=== PATIENT | female | born 1990 | race Caucasian/White ===

== ENCOUNTER 2023-06-17 12:40 | Outpatient (OUT) | payer OTHER, SELFPAY | END 2023-06-17 12:41 | disposition home or self-care (01) | LOC: LAB 12:43 | PROVIDERS: PCP Internal Medicine; Visit Provider Internal Medicine | DX: R53.83 Other fatigue (principal) | CPT/HCPCS: 36415; 82607 ==

== ENCOUNTER 2023-06-23 16:15 | Outpatient (OUT) | payer OTHER, SELFPAY ==
[2023-06-23 16:50] LABS: Basophils Percent Auto 0.6 % (0.2-2.0); Eosinophils Absolute Auto 0.3 10^3/uL (0.0-0.7); Eosinophils Percent Auto 4.4 % (0.9-7.0); Hematocrit 41.5 % (36.0-48.0); Hemoglobin 13.8 g/dL (12.0-16.0); Immature Granulocytes Abs Auto 0.02 10^3/uL (0.00-0.03); Immature Granulocytes Pct Auto 0.3 % (0.0-0.5); Lymphocytes Percent Auto 29.8 % (20.5-60.0); Mean Corpuscular HGB Conc 33.3 g/dL (29.9-35.2); Mean Corpuscular Hemoglobin 30.7 pg (26.7-34.0); Mean Corpuscular Volume 92.2 fL (81.0-99.0); Mean Platelet Volume 9.7 fL (9.5-13.5); Monocytes Absolute Auto 0.5 10^3/uL (0.3-0.8); Neutrophils Absolute Auto 3.9 10^3/uL (1.4-6.5); Neutrophils Percent Auto 57.9 % (43.0-75.0); Platelet Count 167 10^3/uL (150-450); Red Cell Distribution Width 12.6 % (11.0-15.0); White Blood Count 6.8 10^3/uL (4.0-11.0)
[2023-06-23 17:09] LABS: Alanine Aminotransferase 29 U/L (14-59); Albumin Globulin Ratio 1.1; Alkaline Phosphatase 53 U/L (46-116); Anion Gap 13.7; Aspartate Amino Transferase 17 U/L (15-37); BUN Creatinine Ratio 12.5; Bilirubin Total 0.5 mg/dL (0.2-1.0); Calcium 9.3 mg/dL (8.5-10.1); Carbon Dioxide 24.7 mmol/L (21.0-32.0); Chloride 106 mmol/L (98-107); Estimated GFR (African America >60 (>=60); Estimated GFR (Non-African Ame >60 (>=60); Globulin 3.6 g/dL; Glucose 91 mg/dL (74-106); Potassium 4.4 mmol/L (3.5-5.1); Sodium 140 mmol/L (136-145); Thyroid Stimulating Hormone 0.097 uIU/mL (0.358-3.740); Total Protein 7.6 g/dL (6.4-8.2)
== END 2023-06-23 16:16 | disposition home or self-care (01) ==
PROVIDERS: PCP Internal Medicine; Visit Provider Internal Medicine
DX: K70.30 Alcoholic cirrhosis of liver without ascites (principal); R53.83 Other fatigue
CPT/HCPCS: 36415; 80053; 84443; 85025

== ENCOUNTER 2023-07-08 16:38 | Outpatient (OUT) | payer OTHER, SELFPAY ==
[2023-07-08 17:24] LABS: Free T4 0.71 ng/dL (0.76-1.46)
[2023-07-08 17:29] LABS: Free T3 2.08 pg/mL (2.18-3.98); Thyroid Stimulating Hormone 2.039 uIU/mL (0.358-3.740)
== END 2023-07-08 16:39 | disposition home or self-care (01) ==
LOC: LAB 16:38
PROVIDERS: PCP Internal Medicine; Visit Provider Internal Medicine
DX: R79.89 Other specified abnormal findings of blood chemistry (principal)
CPT/HCPCS: 36415; 84436; 84439; 84443; 84481

== ENCOUNTER 2023-07-26 08:01 | Outpatient (OUT) | payer OTHER, SELFPAY ==
--- NOTE | 2023-07-26 09:04 | US_ITS ---
The [address] [address] Patient Name: ROCIO RDZ MRN: [facility]:[id number] date: 1990 Sex: F Assigned Patient Location: US Current Patient Location: US Accession/Order Number: [id number] Exam Date: 07/26/2023 09:12 Report Date: 07/26/2023 10:58 At the request of: NON-STAFF PHYSICIAN Procedure: US right upper quadrant EXAM: US right upper quadrant EXAM DATE: 07/26/2023 7:12 AM MDT COMPARISON: Right upper quadrant ultrasound 03/23/2022 and 11/21/2021.. INDICATION: ALCOHOLIC CIRRHOSIS OF LIVER WITH ASCITES K70.31 TECHNIQUE: Limited ultrasound of the right upper quadrant of abdomen was performed. Images were reviewed on a separate workstation. FINDINGS: Hepatic parenchyma contour is coarsened with diffuse contour nodularity. No focal intraparenchymal abnormality detected. Gallbladder is normally distended. No intraluminal echogenic abnormality seen. No gallbladder wall thickening or pericholecystic fluid noted. Gallbladder wall measures 1.5 mm. Sonographic Carreon's sign is absent. No intrahepatic or extrahepatic biliary ductal dilatation noted. CBD measures 6.2 mm. Numerous perihepatic varices are redemonstrated, compatible with portal hypertension. Hepatopedal flow is demonstrated within the portal vein on images 36 and 37. Pancreas is partially obscured by bowel gas; visualized pancreatic parenchyma is within normal limits. Right kidney measures 10.5 x 5.5 x 4.5. No hydronephrosis or nephrolithiasis noted. No free fluid noted in the right upper abdomen. US/US right upper quadrant IMPRESSION: 1. Cirrhosis with adjacent varices, compatible with underlying portal hypertension. 2. No focal hepatic lesion or ascites identified. Electronically authenticated by: GENTRY PONCE Date: 07/26/2023 10:58
== END 2023-07-26 08:02 | disposition home or self-care (01) ==
LOC: US 08:02
PROVIDERS: PCP Internal Medicine
DX: K70.31 Alcoholic cirrhosis of liver with ascites (principal)
CPT/HCPCS: 76705

== ENCOUNTER 2023-11-12 16:45 | Outpatient (OUT) | payer OTHER, SELFPAY ==
[2023-11-12 17:04] LABS: Basophils Percent Auto 0.4 % (0.2-2.0); Eosinophils Absolute Auto 0.2 10^3/uL (0.0-0.7); Eosinophils Percent Auto 3.2 % (0.9-7.0); Hematocrit 41.9 % (36.0-48.0); Hemoglobin 13.3 g/dL (12.0-16.0); Immature Granulocytes Abs Auto 0.01 10^3/uL (0.00-0.03); Immature Granulocytes Pct Auto 0.1 % (0.0-0.5); Lymphocytes Absolute Auto 2.6 10^3/uL (1.2-3.8); Lymphocytes Percent Auto 37.7 % (20.5-60.0); Mean Corpuscular HGB Conc 31.7 g/dL (29.9-35.2); Mean Corpuscular Hemoglobin 30.4 pg (26.7-34.0); Mean Corpuscular Volume 95.7 fL (81.0-99.0); Monocytes Absolute Auto 0.5 10^3/uL (0.3-0.8); Monocytes Percent Auto 7.7 % (1.7-12.0); Neutrophils Absolute Auto 3.6 10^3/uL (1.4-6.5); Neutrophils Percent Auto 50.9 % (43.0-75.0); Platelet Count 189 10^3/uL (150-450); Red Blood Count 4.38 10^6/uL (4.20-5.40); Red Cell Distribution Width 12.3 % (11.0-15.0)
[2023-11-12 17:52] LABS: Alanine Aminotransferase 30 U/L (14-59); Albumin Level 3.7 g/dL (3.4-5.0); Alkaline Phosphatase 48 U/L (46-116); Anion Gap 12.3; Aspartate Amino Transferase 24 U/L (15-37); BUN Creatinine Ratio 15.8; Bilirubin Total 0.6 mg/dL (0.2-1.0); Calcium 9.3 mg/dL (8.5-10.1); Carbon Dioxide 28.8 mmol/L (21.0-32.0); Chloride 104 mmol/L (98-107); Estimated GFR (African America >60 (>=60); Estimated GFR (Non-African Ame >60 (>=60); Globulin 3.6 g/dL; Glucose 82 mg/dL (74-106); Potassium 4.1 mmol/L (3.5-5.1); Sodium 141 mmol/L (136-145); Total Protein 7.3 g/dL (6.4-8.2)
== END 2023-11-12 16:46 | disposition home or self-care (01) ==
LOC: LAB 16:45
PROVIDERS: PCP Internal Medicine; Visit Provider Internal Medicine
DX: K70.30 Alcoholic cirrhosis of liver without ascites (principal)
CPT/HCPCS: 36415; 80053; 85025

== ENCOUNTER 2024-01-03 08:08 | Outpatient (OUT) | payer OTHER, SELFPAY ==
--- OUTSIDE RECORDS SUMMARY | 2024-01-03 08:10 | XMS_ITS | CCD ---
Author Name Unknown Address [address] [place] [address] Organization [facility] Care Team Providers Care Accounts Adjustable Clerk Name Role Phone Rodney Castañeda Unavailable Charlene Owens Unavailable Sydnee Kong Unavailable FAWWAD, CARNEY H Primary Care Unavailable ASAAD, IMAD Admitting Unavailable ASAAD, IMAD Attending Unavailable ASAAD, IMAD Consulting Unavailable WEST, DR RODNEY Recio Consulting Unavailable REQUEST, DR NONE LISTED Primary Care Unavaila ble FAWWAD, CARNEY H Admitting Unavailable FAWWAD, CARNEY H Attending Unavailable FAWWAD, CARNEY H Consulting Unavailable YASMIN ., DR RAMIREZ Attending Unavailable YASMIN ., DR RAMIREZ Consulting Unavailable YASMIN ., DR RAMIREZ Admitting Unavailable REQUEST, NONE LISTED Primary Care UnavailRODNEY Quevedo Consulting Unavailable YASMIN ., DR RAMIREZ Consulting Unavailable YASMIN ., DR RAMIREZ Admitting Unavailable YASMIN ., DR RAMIREZ Attending Unavailable REQUEST, NONE LISTED Primary Care Unavaila ble FAWWAD, CARNEY H Primary Care Unavailable YASMIN ., DR RAMIREZ Consulting Unavailable YASMIN ., DR RAMIREZ Admitting Unavailable YASMIN ., DR RAMIREZ Attending Unavailable ZIEBER, DR KYLE Carver Consulting Unavailable FAWWAD, CARNEY H Primary Care Unavailable FAWWAD, CARNEY H Admitting Unavailable FAWWAD, CARNEY H Attending Unavailable FAWWAD, CARNEY H Consulting Unavailable FAWWAD, CARNEY H Primary Care Unavailable FAWWAD, CARNEY H Admitting Unavailable FAWWAD, CRANEY H Attending Unavailable FAWWAD, CARNEY H Consulting Unavailable Ann Perera Unavailable Vicky Cedillo Unavailable MD Kojo Deshpande Primary Care Provider MIKIE Perera Attending Provider MD Vicky Cedillo Attending Provider Asaad, Imad Admitting Unavailable Shaikh Deshpande Primary Care Unavailable Vicky Cedillo Attending Unavailable Shaikh Deshpande Primary Care Unavailable Ann Perera Attending Unavailable Ann Perera Admitting Unavailable RAZA RAUSCH Attending Unavailable Allergies Allergy Classification Reported Allergen(s) Allergy Type Date of Onset Reaction(s) Facility (14 sources) Penicillin G Drug Allergy vomits [facility] Other (1 source) Ciprofloxacin Drug Allergy 11-17-19 19 [facility] (1 source) Penicillin Drug Allergy 03-27-20 17 [facility] (2 sources) Penicillins; Translations: [Penicillins] Propensity to adverse reactions 08-08-20 23 Vomiting [facility] (2 sources) Sulfamethoxazole; Translations: [sulfamethoxazole ] Drug Allergy 08-08-20 Joint Pain [facility] (2 sources) Trimethoprim; Translations: [trimethoprim] Drug Allergy 08-08-20 [facility] Medications Current Medications Medication Drug Class(es) Dates Sig (Normalized) Sig (Original) Ascorbic Kvzd-Xqhrmesp-Htd (Emergen-C) 1,000 mg Powder Effervescent In Packet (1 source) Start: 06-09-2021 Ascorbic Ccwk-Kpjnwypb-Qzb (Emergen-C) 1,000 mg Powder Effervescent In Packet Active 1 EACH PO Daily June 09, 2021 12:00am cefdinir 300 mg oral capsule (1 source) Cephalosporin Antibacterial Start: 10-24-2022 Cefdinir 300 MG as directed Orally BID for 10 days Oct, Active cetirizine hydrochloride 10 mg oral tablet (1 source) Histamine-1 Receptor Antagonist Start: 10-24-2022 take 1 tablet by mouth every twelve hours Cetirizine HCl 10 MG 1 tablet Orally Twice a day for 14 days Oct, Active dicyclomine hydrochloride 20 mg oral tablet (5 sources) Anticholinergic Start: 04-23-2022 take 1 tablet by mouth every six hours Dicyclomine HCl 20 MG 1 tablet Orally FOUR TIMES A DAY for 30 day(s) Apr, Active Start: 06-26-2021 take 1 tablet by dawit th every six hours Dicyclomine HCl 20 MG 1 tablet Orally qid for 30 day(s) Jun, Not-Taking fluticasone propionate 0.05 mg/actuat metered dose nasal spray (1 source) Corticosteroid Start: 10-24-2022 take 1 spray(s) nasal route once daily Flonase Allergy Relief 50 MCG/ACT 1 spray in each nostril Nasally Once a day for 14 day(s) Oct, Active folic acid 1 mg oral tablet (15 sources) Start: 07-11-2021 Folic Acid Active 1 MG PO As Directed July 11, 2021 12:00am Folic Acid Activ e hyoscyamine sulfate 0.125 mg sublingual tablet (4 sources) Start: 04-16-2022 take 1 tablet under the tongue twice daily as needed Hyoscyamine Sulfate SL 0.125 MG 1 tablet under the tongue and allow to dissolve as needed Sublingual TWICE A DAY for 30 days March, Active Probiotic (3 sources) Probiotic Active thiamine 100 mg oral tablet (1 source) Start: 08-08-2023 take 1 tablet by mouth once daily Thiamine Mononitrate (Vit B1) (Vitamin B-1 (Mononitrate)) 100 mg tablet Active 100 MG PO Daily August 08, 2023 12:00am Vitamin B1 (14 sources) Vitamin B1 Activ e zolpidem tartrate 5 mg oral tablet (7 sources) gamma-Aminobuty trupti Acid-ergic Agonist Start: 08-08-2023 take 5 mg by mouth once daily Zolpidem Active 5 MG PO Daily August 08, 2023 12:00am Ambien PRN Activ e Ambien Active Completed/Discontinued Medications Medication Drug Class(es) Dates Sig (Normalized) Sig (Original) ALPRAZolam 0.25 mg oral tablet (9 sources) Benzodiazepine Start: 07-11-2021 End: 08-08-2023 Alprazolam Discontinued 0.25 MG PO As Directed July 11, 2021 12:00am August 08, 2023 8:40am ALPRAZolam PRN A ctive ALPRAZolam Activ e Cranberry Conc-Ascorbic Acid (1 source) Non-Standardized Food Allergenic Extract, Non-Standardized Plant Allergenic Extract, Vitamin C Start: 06-09-2021 End: 07-11-2021 take 2 capsules by mouth once daily Cranberry Conc-Ascorbic Acid Discontinued 2 CAP PO Daily June 09, 2021 12:00am July 11, 2021 11:07am 24 hr buPROPion hydrochloride 150 mg extended release oral tablet (1 source) Aminoketone Start: 08-08-2023 End: 08-08-2023 take 150 mg by mouth once daily Bupropion Hcl Discontinued 150 MG PO Daily August 08, 2023 12:00am August 08, 2023 8:41am cefTRIAXone (10 sources) Cephalosporin Antibacterial Start: 01-19-2020 Rocephin 500 mg Jan, 500 mg furosemide 20 mg oral tablet (20 sources) Loop Diuretic Start: 11-21-2021 take 1 tablet by mouth every twenty-four hours Furosemide 20 MG 1 tablet Orally Once a day for 30 days Nov, Not-Taking Start: 07-11-2021 Furosemide Act ping 40 MG PO As Directed July 11, 2021 12:00am Furosemide Activ e levoFLOXacin 750 mg oral tablet (1 source) Quinolone Antimicrobial Start: 06-11-2021 End: 07-11-2021 take 750 mg by mouth once daily Levofloxacin Discontinued 750 MG PO Daily 5 5 June 11, 2021 12:00am July 11, 2021 11:08am loperamide hydrochloride 2 mg oral capsule (1 source) Opioid Agonist Start: 06-11-2021 End: 06-11-2021 take 1 capsule by mouth once daily in the morning Loperamide (Anti-Diarrheal (Loperamide)) 2 mg Capsule Discontinued 1 PO Every morning June 11, 2021 12:00am June 11, 2021 3:47pm meloxicam (7 sources) Nonsteroidal Anti-inflammatory Drug Meloxicam Not-Taking Meloxicam Active methylPREDNISolone 4 mg oral tablet (2 sources) Corticosteroid Medrol 4 MG as directed Orally as directed for 6 days Not-Taking 24 hr nicotine 0.875 mg/hr transdermal system (1 source) Cholinergic Nicotinic Agonist Start: 2020 End: 2020 apply 1 dose transdermal route every twenty-four hours Nicotine Discontinued 1 PATCH TRANSDERML Q24H June 11, 2021 12:00am July 11, 2021 11:08am oxyCODONE hydrochloride 5 mg oral tablet (12 sources) Opioid Agonist Start: 2020 End: 2022 Oxycodone (Roxicodone) 5 mg tablet Discontinued 2.5 MG PO Daily 7 5 June 11, 2021 August 08, 2023 8:40am oxyCODONE ER PRN Active oxyCODONE ER Act ping predniSONE 20 mg oral tablet (3 sources) Start: 06-11-2021 End: 08-08-2023 take 20 mg by mouth once daily Prednisone Discontinued 20 MG PO Daily 7 June 11, 2021 12:00am August 08, 2023 8:40am predniSONE Not-T aking Psyllium Husk (Metamucil) 0.4 gram Capsule (1 source) Start: 06-11-2021 End: 06-11-2021 Psyllium Husk (Metamucil) 0.4 gram Capsule Discontinued 0.4 GM PO Bedtime June 11, 2021 12:00am June 11, 2021 3:47pm rifAXIMin 550 mg oral tablet (7 sources) Rifamycin Antibacterial Start: 11-21-2021 take 1 tablet by mouth every twelve hours Xifaxan 550 MG 1 tablet Orally Twice a day for 30 day(s) Nov, Not-Taking spironolactone 25 mg oral tablet (20 sources) Aldosterone Antagonist Start: 07-11-2021 take 1 tablet by mouth every twenty-four hours Spironolactone 25 MG 1 tablet Orally Once a day for 30 days Nov, Not-Taking take 1 tablet by dawit th every twenty-four hours Spironolactone 50 MG 1 tablet Orally Onc e a day Active Spironolactone A ctive 24 hr venlafaxine 37.5 mg extended release oral capsule (9 sources) Serotonin and Norepinephrine Reuptake Inhibitor Start: 07-11-2021 End: 08-08-2023 take 37.5 mg by mouth once daily at bedtime Venlafaxine Discontinued 37.5 MG PO Daily at bedtime July 11, 2021 12:00am August 08, 2023 8:40am take 1 tablet by dawit th every twenty-four hours Venlafaxine HCl 37.5 MG 1 TABLET Orally Once a day Not-Taking take 2 tablets by mo uth every twenty-four hours Venlafaxine HCl 37.5 MG 2 tablets Orally Once a day Active Vitamin B Complex (1 source) Start: 06-09-2021 End: 08-08-2023 take 1 tablet by mouth once daily Vitamin B Complex Discontinued 1 TAB PO Daily June 09, 2021 12:00am August 08, 2023 8:39am Problems Active Problems Problem Classification Problem Date Documented Da te Episodic/Chronic Abdominal pain (20 sources) Abdominal pain; Translations: [Unspecified abdominal pain] Onset: 08-21-2021 Resolved: 05-08-2022 Episodic Alcohol-related disorders (20 sources) Alcoholic cirrhosis; Translations: [Alcoholic cirrhosis of liver with ascites] Onset: 08-21-2021 Resolved: 04-16-2022 Chronic Biliary tract disease (1 source) Cholecystitis; Translations: [Cholecystitis, unspecified] 06-09-2021 Episodic Menstrual disorders (8 sources) Irregular menstruation, unspecified; Translations: [Excessive and frequent menstruation with irregular cycle] Onset: 10-15-2022 Chronic Other connective tissue disease (1 source) Pain in right foot Episodic Other diseases of veins and lymphatics (1 source) Disorder of spleen; Translations: [Varicose veins of other specified sites] 06-08-2021 Episodic Other gastrointestinal disorders (4 sources) Ascites; Translations: [Other ascites] 06-08-2021 Episodic Other gastrointestinal disorders (1 source) Other ascites Episodic Other liver diseases (5 sources) Unspecified cirrhosis of liver; Translations: [UNSPECIFIED CIRRHOSIS OF LIVER] Onset: 04-15-2023 Chronic Other liver diseases (5 sources) Cirrhosis of liver; Translations: [Unspecified cirrhosis of liver] Onset: 05-17-2021 06-11-2021 Chronic Other screening for suspected conditions (not mental disorders or infectious disease) (10 sources) Ultrasound scan abnormal; Translations: [Abnormal findings on diagnostic imaging of other specified body structures] Onset: 04-16-2022 Resolved: 04-16-2022 Chronic Other screening for suspected conditions (not mental disorders or infectious disease) (7 sources) Encounter for screening for malignant neoplasm of cervix; Translations: [Blood chemistry abnormal] Onset: 11-21-2022 Episodic Other upper respiratory infections (10 sources) Acute upper respiratory infection, unspecified; Translations: [Sore throat symptom] Onset: 08-15-2021 Resolved: 08-15-2021 Episodic Otitis media and related conditions (1 source) Other acute nonsuppurative otitis media, bilateral Episodic Peritonitis and intestinal abscess (1 source) Primary bacterial peritonitis; Translations: [Spontaneous bacterial peritonitis] 06-09-2021 Episodic Unclassified (1 source) Pain in right foot; Translations: [Pain in right foot] Onset: 06-16-2023 Past or Other Problems Problem Classification Problem Date Documented Da te Episodic/Chronic Benign neoplasm of uterus (1 source) Leiomyoma of uterus, unspecified; Translations: [LEIOMYOMA OF UTERUS UNSPECIFIED] Onset: 11-28-2022 Episodic Immunizations and screening for infectious disease (3 sources) Contact with and (suspected) exposure to other viral communicable diseases; Translations: [Contact with and (suspected) exposure to unspecified communicable disease] Onset: 08-15-2021 Resolved: 08-15-2021 Episodic Ovarian cyst (6 sources) Other ovarian cyst, left side; Translations: [Unspecified ovarian cyst, left side] Onset: 11-28-2022 Episodic Results Test Name Value Interpretation Reference Range Facility HCG ( test) Terence reynolds Ql (U)Ordered By: Vicky Cedillo on 08-08-2023 HCG ( test) Ql (U) Negative [facility] HCG,Urineon 08-08-2023 Beta HCG ( test) Ql (U) Negative Normal [facility] Comment on above: Result Comment: PERF ORMED BY: [place] [address] PATHOLOGIST RIBBON LAPPER TENDER SAMANTHA SOTOMAYOR M.D. Performed By: #### U HCG #### [address] XR foot RT min 3V*on 023 XR foot RT min 3V* [facility] [place] [address] [place] [address] XRay Report Signed Patient: Radha Hines MR#: [id number] : 1990 Acct:[id number] Age/Sex: 32 / F ADM Date: 06/16/23 Loc: XDUCLY Room: Type: [facility] Attending Dr: Ann Perera APRN Copies to: Ann Perera APRN Ordering Provider: Ann Perera APRN Date of Service: 06/16/23 XR/XR foot RT min 3V*: Right foot pain XR foot RT min 3V* 06/16/2023 5:22 PM SIGNS AND SYMPTOMS: Pain in lateral aspect of the right foot/fifth metatarsal PROTOCOL: Frontal, lateral, and oblique radiographs of the right foot COMPARISON: 05/04/2021 FINDINGS: The bones are in anatomic alignment. There is no evidence of fracture or dislocation. The joint spaces are preserved. No significant soft tissue swelling. There is an os perineum along the lateral aspect of the midfoot. There is minimal plantar surface calcaneal spurring. XR/XR foot RT min 3V* IMPRESSION: No acute bony injury. Impression dictated by: Ishmael Nelson M.D.06/16/2023 5:39 PM Dictation Location: [facility]- Transcribed By: [facility] 06/16/23 173 Dictated By: Ishmael Nelson II, MD 06/16/231735 Signed By: 06/16/23 173 [facility] XR foot RT min 3V* [facility] [employer] Other XR foot RT min 3V* [facility] [employer] Other XR foot RT min 3V* [address] [place] [address] [email or web address] Other XR foot RT min 3V* [place] [address] [email or web address] Other XR foot RT min 3V* XRay Report [email or web address] Other XR foot RT min 3V* Signed [email or web address] Other XR foot RT min 3V* Patient: Radha Hines MR#: [id number] [email or web address] Other XR foot RT min 3V* 925 [email or web address] Other XR foot RT min 3V* : 1990 Acct:[id number] [email or web address] Other XR foot RT min 3V* Age/Sex: 32 / F ADM Date: 06/16/23 [email or web address] Other XR foot RT min 3V* Loc: XDUCLY Room: Type: REG CLI [email or web address] Other XR foot RT min 3V* Attending Dr: Ann Perera [facility] [email or web address] Other XR foot RT min 3V* Copies to: Ann Perera [facility] [email or web address] Other XR foot RT min 3V* Ordering Provider: Ann Perera [facility] [email or web address] Other XR foot RT min 3V* Date of Service: 06/16/23 [email or web address] Other XR foot RT min 3V* XR/XR foot RT min 3V*: Right foot pain [email or web address] Other XR foot RT min 3V* XR foot RT min 3V* 06/16/2023 5:22 PM [email or web address] Other XR foot RT min 3V* SIGNS AND SYMPTOMS: Pain in lateral aspect of the right foot/fifth metatarsal [email or web address] Other XR foot RT min 3V* PROTOCOL: Frontal, lateral, and oblique radiographs of the right foot [email or web address] Other XR foot RT min 3V* COMPARISON: 05/04/2021 [email or web address] Other XR foot RT min 3V* FINDINGS: [email or web address] Other XR foot RT min 3V* The bones are in anatomic alignment. There is no evidence of fracture or dislocation. The joint [email or web address] Other XR foot RT min 3V* spaces are preserved . No significant soft tissue swelling. There is an os perineum along the lateral [email or web address] Other XR foot RT min 3V* aspect of the midfoot. There is minimal plantar surface calcaneal spurring. [email or web address] Other XR foot RT min 3V* XR/XR foot RT min 3V* [email or web address] Other XR foot RT min 3V* IMPRESSION: [email or web address] Other XR foot RT min 3V* No acute bony injury. [email or web address] Other XR foot RT min 3V* Impression dictated by: Ishmael Nelson M.D.06/16/2023 5:39 PM [email or web address] Other XR foot RT min 3V* Dictation Location: [facility]--13 [email or web address] Other XR foot RT min 3V* Transcribed By: JOLENE 06/16/23 173 [email or web address] Other XR foot RT min 3V* Dictated By: Ishmael Nelson II, MD 06/16/23 173 [email or web address] Other XR foot RT min 3V* Signed By: [email or web address] Other XR foot RT min 3V* 06/16/23 1739 [facility] Other CBC AUTO DIFFon 04-15-2023 BASO # 0.1 103/ul Normal 0.0-0.1 [facility] Comment on above: Performed By: #### C BC #### [facility] [address] [address] [address] Belkis Ray Basophils/100 WBC (Bld) 0.9 % Normal 0.2-2.0 [facility] Comment on above: Performed By: #### C BC #### [facility] [address] [place] [address] Dr. Belkis Ray EO # 0.2 103/ul Normal 0.0-0.7 [facility] Comment on above: Performed By: #### C BC #### [facility] [address] [place] [address] Dr. Belkis Ray Eosinophils/100 WBC (Bld) 2.8 % Normal 0.9-7.0 [facility] Comment on above: Performed By: #### C BC #### [facility] [address] [place] [address] Dr. Belkis Ray Erythrocyte distribution width (RBC) [Ratio] 12.6 % Normal 11.0-15.0 [facility] Comment on above: Performed By: #### C BC #### [facility] [address] [place] [address] Dr. Belkis Ray Hematocrit (Bld) [Volume fraction] 37.6 % Normal 36.0-48.0 [facility] Comment on above: Performed By: #### C BC #### [facility] [address] [place] [address] Dr. Belkis Ray Hemoglobin (Bld) [Mass/Vol] 12.7 g/dL Normal 12.0-16.0 [facility] Comment on above: Performed By: #### C BC #### [facility] [address] [place] [address] Dr. Belkis Ray IG # 0.02 10e3/ul Normal 0.00-0.03 [facility] Comment on above: Performed By: #### C BC #### [facility] [address] [place] [address] Dr. Belkis Ray IG % 0.3 % Normal 0.0-0.5 [facility] Comment on above: Performed By: #### C BC #### [facility] [address] [place] [address] Dr. Belkis Ray LYMPH # 2.7 103/ul Normal 1.2-3.8 [facility] Comment on above: Performed By: #### C BC #### [facility] [address] [place] [address] Dr. Belkis Ray Lymphocytes/100 WBC (Bld) 42.7 % Normal 20.5-60.0 [facility] Comment on above: Performed By: #### C BC #### [facility] [address] [place] [address] Dr. Belkis Ray MANUAL DIFF REQ NO Normal [facility] Comment on above: Performed By: #### C BC #### [facility] [address] [place] [address] Dr. Belkis Ray MCH (RBC) [Entitic mass] 31.6 pg Normal 26.7-34.0 [facility] Comment on above: Performed By: #### C BC #### [facility] [address] [place] [address] Dr. Belkis Ray MCHC (RBC) [Mass/Vol] 33.8 g/dL Normal 29.9-35.2 [facility] Comment on above: Performed By: #### C BC #### [facility] [address] [place] [address] Dr. Belkis Ray MCV (RBC) [Entitic vol] 93.5 fL Normal 81.0-99.0 [facility] Comment on above: Performed By: #### C BC #### [facility] [address] [place] [address] Dr. Belkis Ray MONO # 0.4 103/ul Normal 0.3-0.8 [facility] Comment on above: Performed By: #### C BC #### [facility] [address] [place] [address] Dr. Belkis Ray Monocytes/100 WBC (Bld) 7.0 % Normal 1.7-12.0 [facility] Comment on above: Performed By: #### C BC #### [facility] [address] [place] [address] Dr. Belkis Ray NEUT # 2.9 103/ul Normal 1.4-6.5 [facility] Comment on above: Performed By: #### C BC #### [facility] [address] [place] [address] Dr. Belkis Ray Neutrophils/100 WBC (Bld) 46.3 % Normal 43.0-75.0 [facility] Comment on above: Performed By: #### C BC #### [facility] [address] [address] [address] Belkis Ray Platelet mean volume (Bld) [Entitic vol] 9.4 fL Critically low 9.5-13.5 [facility] Comment on above: Performed By: #### C BC #### [facility] [address] [address] [address] Belkis Ray PLT 149 103/ul Critically low 150-450 [facility] Comment on above: Performed By: #### C BC #### [facility] [address] [address] [address] Belkis Ray RBC 4.02 106/ul Critically low 4.20-5.40 [facility] Comment on above: Performed By: #### C BC #### [facility] [address] [address] [address] Belkis Ray WBC 6.3 103/ul Normal 4.0-11.0 [facility] Comment on above: Performed By: #### C BC #### [facility] [address] [address] [address] Belkis Ray LIVER PROFILEon 04-15-2023 Albumin [Mass/Vol] 3.6 g/dL Normal 3.4-5.0 [facility] Comment on above: Performed By: #### T CAS, PREGQNT #### [facility] [address] [place] [address] Dr. Belkis Ray Albumin/Globulin [Mass ratio] 1.0 {ratio} Normal [facility] Comment on above: Performed By: #### T CAS, PREGQNT #### [facility] [address] [place] [address] Dr. Belkis Ray ALP [Catalytic activity/Vol] 61 U/L Normal 46-116 [facility] Comment on above: Performed By: #### T CAS, PREGQNT #### [facility] [address] [place] [address] Dr. Belkis Ray ALT [Catalytic activity/Vol] 35 U/L Normal 14-59 [facility] Comment on above: Performed By: #### T SH, PREGQNT #### [facility] [address] [place] [address] Dr. Belkis Ray AST [Catalytic activity/Vol] 27 U/L Normal 15-37 [facility] Comment on above: Performed By: #### T SH, PREGQNT #### [facility] [address] [place] [address] Dr. Belkis Ray BILI, CONJUGATED 0.2 mg/dL Normal 0.0-0.2 [facility] Comment on above: Performed By: #### T SH, PREGQNT #### [facility] [address] [place] [address] Dr. Belkis Ray Bilirubin [Mass/Vol] 0.4 mg/dL Normal 0.2-1.0 [facility] Comment on above: Performed By: #### T SH, PREGQNT #### [facility] [address] [place] [address] Dr. Belkis Ray Globulin (S) [Mass/Vol] 3.6 g/dL Normal [facility] Comment on above: Performed By: #### T SH, PREGQNT #### [facility] [address] [place] [address] Dr. Belkis Ray Protein [Mass/Vol] 7.2 g/dL Normal 6.4-8.2 [facility] Comment on above: Performed By: #### T SH, PREGQNT #### [facility] [address] [place] [address] Dr. Belkis Ray PROF CHEM 8 (BAS METB)on Anion gap [Moles/Vol] 12.3 mmol/L Normal [facility] Comment on above: Performed By: #### T SH, PREGQNT #### [facility] [address] [place] [address] Dr. Belkis Ray Calcium [Mass/Vol] 8.9 mg/dL Normal 8.5-10.1 [facility] Comment on above: Performed By: #### T SH, PREGQNT #### [facility] [address] [address] [address] Belkis Ray Chloride [Moles/Vol] 105 mmol/L Normal 98-107 [facility] Comment on above: Performed By: #### T SH, PREGQNT #### [facility] [address] [address] [address] Belkis Ray CO2 [Moles/Vol] 27.6 mmol/L Normal 21.0-32.0 [facility] Comment on above: Performed By: #### T SH, PREGQNT #### [facility] [address] [address] [address] Belkis Ray Creatinine [Mass/Vol] 0.57 mg/dL Normal 0.55-1.02 [facility] Comment on above: Performed By: #### T SH, PREGQNT #### [facility] [address] [address] [address] Belkis Ray EGFR-AF SLOVENIAN >60 Normal >=60 [facility] Comment on above: Performed By: #### T SH, PREGQNT #### [facility] [address] [place] [address] Dr. Belkis Ray EGFR-NON AF SLOVENIAN >60 Normal >=60 [facility] Comment on above: Performed By: #### T SH, PREGQNT #### [facility] [address] [address] [address] Belkis Ray Glucose [Mass/Vol] 89 mg/dL Normal 74-106 [facility] Comment on above: Performed By: #### T SH, PREGQNT #### [facility] [address] [address] [address] Belkis Ray Potassium [Moles/Vol] 3.9 mmol/L Normal 3.5-5.1 [facility] Comment on above: Performed By: #### T SH, PREGQNT #### [facility] [address] [address] [address] Belkis Ray Sodium [Moles/Vol] 141 mmol/L Normal 136-145 [facility] Comment on above: Performed By: #### T SH, PREGQNT #### [facility] [address] [place] [address] Dr. Belkis Ray Urea nitrogen [Mass/Vol] 12.0 mg/dL Normal 7.0-18.0 [facility] Comment on above: Performed By: #### T SH, PREGQNT #### [facility] [address] [place] [address] Dr. Belkis Ray Urea nitrogen/Creatinine [Mass ratio] 21.1 mg/mg Normal [facility] Comment on above: Performed By: #### T SH, PREGQNT #### [facility] [address] [place] [address] Dr. Belkis Ray PROTIMEon 04-15-2023 INR Coag (PPP) [Relative time] 1.09 {INR} Normal [facility] Comment on above: Performed By: #### T CAS, PREGQNT #### [facility] [address] [place] [address] Dr. Belkis Ray INR GUIDELINES SEE BELOW Normal [facility] Comment on above: Result Comment: EDE RED INR: 2.0 - 3.0 CONDITIONS NOT LISTED BELOW 2.5 - 3.5 FOR PROSTHETIC HEART VALVE REPLACEMENT 2.5 - 3.5 RECURRENT THROMBOSIS Performed By: #### T SH, PREGQNT #### [facility] [address] [place] [address] Dr. Belkis Ray PT Coag (PPP) [Time] 11.5 s Normal 9.0-11.6 [facility] Comment on above: Performed By: #### T CAS, PREGQNT #### [facility] [address] [place] [address] Dr. Belkis Ray NM HEPATOBILIARY SCAN W EFon 02-14-2023 NM HEPATOBILIARY SCAN W EF EXAMINATION: NM HEPATOBILIARY SCAN W EF HISTORY: Right upper quadrant pain COMPARISON: No relevant comparison available. TECHNIQUE: Radionuclide hepatobiliary imaging was performed after intravenous injection of 5 mCi technetium 99m mebrofenin with sequential acquisitions every 1 minute for one hour. Hepatobiliary imaging with gallbladder ejection fraction analysis was then performed with sequential imaging every 1 minute for 60 minutes simultaneously following 8 ounces of Ensure plus by mouth. FINDINGS: LIVER: Normal, prompt and uniform radiotracer uptake and clearing. BILIARY DUCTS: Normal radioisotopic biliary excretion. GALLBLADDER: Normal with no evidence of cystic duct obstruction. INTESTINE: Normal with no evidence of common biliary ductal obstruction. EJECTION FRACTION: 85 % within 60 minutes. (Normal EF > 38%). OTHER: Negative. IMPRESSION: Normal hepatobiliary scan and pharmacologic ejection fraction Electronically authenticated by: RODNEY JOHN Date: 2023-02-14 15:07 Normal [facility] COVID + FLU Quick Testingon 01-18-2023 SARS-CoV-2 (COVID-19) RNA HOLDEN+probe Ql (Unsp spec) Negative [email or web address] Other COVID + FLU Quick Testing Negative [email or web address] Other Quick Strepon 01-18-2023 S. pyogenes Org specific cx Ql (Throat) Negative [email or web address] Other Quick Strep [email or web address] Other US PELVIS AND TRANSVAGon US PELVIS AND TRANSVAG EXAM: Pelvic ultrasound HISTORY: . Cyst of left ovary . COMPARISON: 11/25/2022 TECHNIQUE: Transabdominal and transvaginal scanning was performed FINDINGS: Scanning of the pelvis demonstrates the uterus to be anteverted and measures 8.4 x 5.8 x 3.8 cm. Within the myometrium of the fundus of uterus there is a 9 x 9 x 0.7 cm hypoechoic area consistent with a small fibroid. Endometrial complex measures 7 mm. Right ovary measures 3.7 x 3 x 2 cm. Color-flow is noted. Resistive indexes 0.59. Follicles are noted. Left ovary measures 4.2 x 3.5 x 2.1 cm. Color-flow is noted. Resistive indexes 0.52. Within the left ovary there is a 2.9 x 2.2 x 1.5 cm avascular hypoechoic lesion. Minimal fluid is noted in the cul-de-sac. IMPRESSION: 1. 9 mm fibroid involving the myometrium of the fundus of uterus. Endometrial complex appears normal. 2. Normal-appearing right ovary. The previously noted complex cyst within the right ovary has resolved. 3. Within the left ovary there is a 2.9 x 1.5 cm avascular complex cystic lesion. A similar finding was noted on the previous exam. Findings could represent a hemorrhagic cyst though this is not decreased in size. An inflammatory mass or neoplasm cannot entirely be excluded. Clinical correlation is suggested. Electronically authenticated by: RODNEY MEJIA Date: 2023-01-07 08:12 Normal [facility] ANTI-MULLERIAN HORMONEon Anti-Mullerian Hormone (AMH) 4.29 ng/mL Normal [facility] Comment on above: Result Comment: For assays employing antibodies, the possibility exists for interference by heterophile antibodies in the samples.1 1.Lucho Tejada Interferences in Immunoassays - still a threat. Clin. Chem. 2000; 46: 7801-7949. This test was developed and its performance characteristics determined by [employer]. It has not been cleared or approved by the Food and Drug Administration. Reference Range: Females 31 - 35y: 0.66 - 8.75 Median 3.00 AMH concentrations of >= 1.06 ng/mL is correlated with a better response to ovarian stimulation, produced more retrievable oocytes and higher odds of live according to Mercedeser et al. Fertility and Sterility. 2010: 94:2126-0184. The current AMH test method correlates with the study method with a slope of 0.94. Females at risk of ovarian hyperstimulation syndrome or polycystic ovarian syndrome (PCOS) may exhibit elevated serum AMH concentrations. AMH levels from PCOS patients may be 2 to 5 fold higher than age-appropriate reference interval values. Granulosa cell tumors of the ovary may secrete AMH along with other tumor markers. Elevated AMH is not specific for malignancy, and the assay should not be used exclusively to diagnose or exclude an AMH-secreting ovarian tumor. Performed By: #### A CHAITANYA #### [facility] [address] [place] [address] Dr. Belkis Ray US PELVIS AND TRANSVAGon US PELVIS AND TRANSVAG EXAMINATION: US PELVIS AND TRANSVAG HISTORY: Irregular periods COMPARISON: Ultrasound pelvis 11/20/2021 TECHNIQUE: Transabdominal and transvaginal sonographic examination. FINDINGS: UTERUS: Stable 0.9 cm hypoechoic area within the fundal myometrium favoring a leiomyoma. Uterus size: 7.7 x 6.0 x 4.3 cm ENDOMETRIUM: Normal homogeneous appearance. Endometrial thickness: 7 mm RIGHT OVARY: Contains a 1.9 cm slightly complex cyst. Duplex Doppler demonstrates normal waveform and flow; resistive index 0.5. Ovary size: 2.9 x 3.4 x 2.3 cm LEFT OVARY: Contains a 2.8 cm complex cyst. Duplex Doppler demonstrates normal waveform and flow; resistive index 0.7. Ovary size: 3.7 x 2.7 x 2.2 cm CUL-DE-SAC: Unremarkable. No significant free fluid. BLADDER: Unremarkable. OTHER: None. IMPRESSION: 1. Unremarkable endometrium. Stable small leiomyoma within uterine fundal myometrium. 2. Complex cysts within right and left ovary versus hypoechoic mass. Consider follow-up ultrasound evaluation in 6 weeks to document regression. It is uncertain whether the complex cysts within the left ovary is new since prior study or still represent same finding seen on 11/20/2021; which would favor a mass. Electronically authenticated by: KYLE BENAVIDES Date: 2022-11-26 08:06 Normal [facility] CBC AUTO DIFFon 11-25-2022 BASO # 0.0 103/ul Normal 0.0-0.1 [facility] Comment on above: Performed By: #### C BC #### [facility] [address] [place] [address] Dr. Belkis Ray Basophils/100 WBC (Bld) 0.4 % Normal 0.2-2.0 [facility] Comment on above: Performed By: #### C BC #### [facility] [address] [place] [address] Dr. Belkis Ray EO # 0.2 103/ul Normal 0.0-0.7 [facility] Comment on above: Performed By: #### C BC #### [facility] [address] [address] [address] Belkis Ray Eosinophils/100 WBC (Bld) 2.3 % Normal 0.9-7.0 [facility] Comment on above: Performed By: #### C BC #### [facility] [address] [place] [address] Dr. Belkis Ray Erythrocyte distribution width (RBC) [Ratio] 13.0 % Normal 11.0-15.0 [facility] Comment on above: Performed By: #### C BC #### [facility] [address] [place] [address] Dr. Belkis Ray Hematocrit (Bld) [Volume fraction] 35.8 % Critically low 36.0-48.0 [facility] Comment on above: Performed By: #### C BC #### [facility] [address] [place] [address] Dr. Belkis Ray Hemoglobin (Bld) [Mass/Vol] 12.7 g/dL Normal 12.0-16.0 [facility] Comment on above: Performed By: #### C BC #### [facility] [address] [place] [address] Dr. Belkis Ray IG # 0.02 10e3/ul Normal 0.00-0.03 [facility] Comment on above: Performed By: #### C BC #### [facility] [address] [place] [address] Dr. Belkis Ray IG % 0.2 % Normal 0.0-0.5 [facility] Comment on above: Performed By: #### C BC #### [facility] [address] [place] [address] Dr. Belkis Ray LYMPH # 2.5 103/ul Normal 1.2-3.8 [facility] Comment on above: Performed By: #### C BC #### [facility] [address] [place] [address] Dr. Belkis Ray Lymphocytes/100 WBC (Bld) 26.4 % Normal 20.5-60.0 [facility] Comment on above: Performed By: #### C BC #### [facility] [address] [place] [address] Dr. Belkis Ray MANUAL DIFF REQ NO Normal [facility] Comment on above: Performed By: #### C BC #### [facility] [address] [place] [address] Dr. Belkis Ray MCH (RBC) [Entitic mass] 31.8 pg Normal 26.7-34.0 [facility] Comment on above: Performed By: #### C BC #### [facility] [address] [address] [address] Belkis Ray MCHC (RBC) [Mass/Vol] 35.5 g/dL Critically high 29.9-35.2 [facility] Comment on above: Performed By: #### C BC #### [facility] [address] [address] [address] Belkis Ray MCV (RBC) [Entitic vol] 89.5 fL Normal 81.0-99.0 [facility] Comment on above: Performed By: #### C BC #### [facility] [address] [address] [address] Belkis Ray MONO # 0.6 103/ul Normal 0.3-0.8 [facility] Comment on above: Performed By: #### C BC #### [facility] [address] [address] [address] Belkis Ray Monocytes/100 WBC (Bld) 6.3 % Normal 1.7-12.0 [facility] Comment on above: Performed By: #### C BC #### [facility] [address] [address] [address] Belkis Ray NEUT # 6.0 103/ul Normal 1.4-6.5 [facility] Comment on above: Performed By: #### C BC #### [facility] [address] [address] [address] Belkis Ray Neutrophils/100 WBC (Bld) 64.4 % Normal 43.0-75.0 [facility] Comment on above: Performed By: #### C BC #### [facility] [address] [address] [address] Belkis Ray Platelet mean volume (Bld) [Entitic vol] 9.0 fL Critically low 9.5-13.5 [facility] Comment on above: Performed By: #### C BC #### [facility] [address] [address] [address] Belkis Ray PLT 173 103/ul Normal 150-450 [facility] Comment on above: Performed By: #### C BC #### [facility] [address] [address] [address] Belkis Ray RBC 4.00 106/ul Critically low 4.20-5.40 [facility] Comment on above: Performed By: #### C BC #### [facility] [address] [place] [address] Dr. Belkis Ray WBC 9.3 103/ul Normal 4.0-11.0 [facility] Comment on above: Performed By: #### C BC #### [facility] [address] [place] [address] Dr. Belkis Ray FREE T4on 11-25-2022 Free T4 [Mass/Vol] 0.80 ng/dL Normal 0.76-1.46 [facility] Comment on above: Performed By: #### F T4 #### [facility] [address] [place] [address] Dr. Belkis Ray GLYCOHEMOGLOBIN A1Con 2022 ADA RECOMMENDATION SEE BELOW Normal [facility] Comment on above: Result Comment: ADA RECOMMENDED LIMIT 4.0 - 6.0 ADA THERAPEUTIC TARGET < 7.0 ACTION SUGGESTED > 7.0 Performed By: #### T SH, PREGQNT #### [facility] [address] [place] [address] Dr. Belkis Ray Glucose [Mass/Vol] 103 mg/dL Normal [facility] Comment on above: Performed By: #### T SH, PREGQNT #### [facility] [address] [place] [address] Dr. Belkis Ray HbA1c (Bld) [Mass fraction] 5.2 % Normal 4.5-6.2 [facility] Comment on above: Performed By: #### T SH, PREGQNT #### [facility] [address] [place] [address] Dr. Belkis Ray PAP ACOG PANEL 2: 30 to 65on 11-25-2022 . . Normal [facility] Comment on above: Result Comment: Perf ormed at: WB Performed By: #### [id number] #### [facility] [address] [address] [address] Belkis Ray Age Gdln ACOG Testing 30-65 Normal [facility] Comment on above: Performed By: #### [id number] #### [facility] [address] [place] [address] Dr. Belkis Ray DIAGNOSIS: Comment Normal [facility] Comment on above: Result Comment: NEGA TIVE FOR INTRAEPITHELIAL LESION OR MALIGNANCY. Performed at: WB Performed By: #### [id number] #### [facility] [address] [place] [address] Dr. Belkis Ray HPV Aptima Negative Normal Negative [facility] Comment on above: Result Comment: This nucleic acid amplification test detects fourteen high-risk HPV types (16,18,31,33,35,39,45,51,52,56,58,59,66,68) without differentiation. Performed at: =G Performed By: #### [id number] #### [facility] [address] [place] [address] Dr. Belkis Ray HPV Genotype Reflex Comment Normal [facility] Comment on above: Result Comment: Crit eria not met, HPV Genotype not performed. Performed at: WB Performed By: #### [id number] #### [facility] [address] [place] [address] Dr. Belkis Ray Methodology: Comment Normal [facility] Comment on above: Result Comment: This liquid based ThinPrep(R) pap test was screened with the use of an image guided system. Performed at: WB Performed By: #### [id number] #### [facility] [address] [place] [address] Dr. Belkis Ray Note: Comment Normal [facility] Comment on above: Result Comment: The Pap smear is a screening test designed to aid in the detection of premalignant and malignant conditions of the uterine cervix. It is not a diagnostic procedure and should not be used as the sole means of detecting cervical cancer. Both false-positive and false-negative reports do occur. . Performed at: WB Performed By: #### [id number] #### [facility] [address] [place] [address] Dr. Belkis Ray Performed by: Comment Normal [facility] Comment on above: Result Comment: Darius Hammond, Warehouse Handler (ASCP) Performed at: WB Performed By: #### [id number] #### [facility] [address] [place] [address] Dr. Belkis Ray Specimen adequacy: Comment Normal [facility] Comment on above: Result Comment: Sati sfactory for evaluation. Endocervical and/or squamous metaplastic cells (endocervical component) are present. Performed at: WB Performed By: #### [id number] #### [facility] [address] [place] [address] Dr. Belkis Ray PREG QUANT HCGon 11-25-2022 HCG QUANT <1 Normal [facility] Comment on above: Performed By: #### T SH, PREGQNT #### [facility] [address] [place] [address] Dr. Belkis Ray HCG RANGE SEE BELOW [facility] Comment on above: Result Comment: 5-50 0.2-1 WEEK 50-500 1-2 WEEKS 100-5,000 2-3 WEEKS 500-10,000 3-4 WEEKS 1,000-50,000 4-5 WEEKS 10,000-100,000 5-6 WEEKS 15,000-200,000 6-8 WEEKS 10,000-100,000 2-3 MONTHS Performed By: #### T SH, PREGQNT #### [facility] [address] [place] [address] Dr. Belkis Ray PROTIMEon 11-25-2022 INR Coag (PPP) [Relative time] 1.11 {INR} [facility] Comment on above: Performed By: #### T SH, PREGQNT #### [facility] [address] [place] [address] Dr. Belkis Ray INR GUIDELINES SEE BELOW Normal [facility] Comment on above: Result Comment: EDE RED INR: 2.0 - 3.0 CONDITIONS NOT LISTED BELOW 2.5 - 3.5 FOR PROSTHETIC HEART VALVE REPLACEMENT 2.5 - 3.5 RECURRENT THROMBOSIS Performed By: #### T SH, PREGQNT #### [facility] [address] [place] [address] Dr. Belkis Ray PT Coag (PPP) [Time] 11.9 s Critically high 9.0-11.6 [facility] Comment on above: Performed By: #### T SH, PREGQNT #### [facility] [address] [place] [address] Dr. Belkis Ray PTTon 11-25-2022 aPTT Coag (Bld) [Time] 30.3 s Normal 22.3-36.2 [facility] Comment on above: Performed By: #### T SH, PREGQNT #### [facility] [address] [place] [address] Dr. Belkis Ray TSHon 11-25-2022 TSH 2.129 uIU/mL Normal 0.358-3.740 [facility] Comment on above: Performed By: #### T SH, PREGQNT #### [facility] [address] [place] [address] Dr. Belkis Ray Quick Strepon 10-24-2022 S. pyogenes Org specific cx Ql (Throat) Negative [employer] [place] [facility] [employer] Other Quick Strep [employer] [place] [facility] [employer] Other CBC AUTO DIFFon 10-15-2022 BASO # 0.1 103/ul Normal 0.0-0.1 [facility] Comment on above: Performed By: #### C BC #### [facility] [address] [place] [address] Dr. Belkis Ray Basophils/100 WBC (Bld) 0.7 % Normal 0.2-2.0 [facility] Comment on above: Performed By: #### C BC #### [facility] [address] [place] [address] Dr. Belkis Ray EO # 0.3 103/ul Normal 0.0-0.7 [facility] Comment on above: Performed By: #### C BC #### [facility] [address] [place] [address] Dr. Belkis Ray Eosinophils/100 WBC (Bld) 3.5 % Normal 0.9-7.0 [facility] Comment on above: Performed By: #### C BC #### [facility] [address] [place] [address] Dr. Belkis Ray Erythrocyte distribution width (RBC) [Ratio] 13.2 % Normal 11.0-15.0 [facility] Comment on above: Performed By: #### C BC #### [facility] [address] [place] [address] Dr. Belkis Ray Hematocrit (Bld) [Volume fraction] 37.3 % Normal 36.0-48.0 [facility] Comment on above: Performed By: #### C BC #### [facility] [address] [place] [address] Dr. Belkis Ray Hemoglobin (Bld) [Mass/Vol] 12.6 g/dL Normal 12.0-16.0 [facility] Comment on above: Performed By: #### C BC #### [facility] [address] [place] [address] Dr. Belkis Ray IG # 0.02 10e3/ul Normal 0.00-0.03 [facility] Comment on above: Performed By: #### C BC #### [facility] [address] [place] [address] Dr. Belkis Ray IG % 0.3 % Normal 0.0-0.5 [facility] Comment on above: Performed By: #### C BC #### [facility] [address] [place] [address] Dr. Belkis Ray LYMPH # 3.0 103/ul Normal 1.2-3.8 [facility] Comment on above: Performed By: #### C BC #### [facility] [address] [place] [address] Dr. Belkis Ray Lymphocytes/100 WBC (Bld) 41.4 % Normal 20.5-60.0 [facility] Comment on above: Performed By: #### C BC #### [facility] [address] [place] [address] Dr. Belkis Ray MANUAL DIFF REQ NO Normal [facility] Comment on above: Performed By: #### C BC #### [facility] [address] [address] [address] Belkis Ray MCH (RBC) [Entitic mass] 31.3 pg Normal 26.7-34.0 [facility] Comment on above: Performed By: #### C BC #### [facility] [address] [place] [address] Dr. Belkis Ray MCHC (RBC) [Mass/Vol] 33.8 g/dL Normal 29.9-35.2 [facility] Comment on above: Performed By: #### C BC #### [facility] [address] [place] [address] Dr. Belkis Ray MCV (RBC) [Entitic vol] 92.8 fL Normal 81.0-99.0 [facility] Comment on above: Performed By: #### C BC #### [facility] [address] [place] [address] Dr. Belkis Ray MONO # 0.5 103/ul Normal 0.3-0.8 [facility] Comment on above: Performed By: #### C BC #### [facility] [address] [place] [address] Dr. Belkis Ray Monocytes/100 WBC (Bld) 6.3 % Normal 1.7-12.0 [facility] Comment on above: Performed By: #### C BC #### [facility] [address] [place] [address] Dr. Belkis Ray NEUT # 3.5 103/ul Normal 1.4-6.5 [facility] Comment on above: Performed By: #### C BC #### [facility] [address] [place] [address] Dr. Belkis Ray Neutrophils/100 WBC (Bld) 47.8 % Normal 43.0-75.0 [facility] Comment on above: Performed By: #### C BC #### [facility] [address] [place] [address] Dr. Belkis Ray Platelet mean volume (Bld) [Entitic vol] 9.4 fL Critically low 9.5-13.5 [facility] Comment on above: Performed By: #### C BC #### [facility] [address] [address] [address] Belkis Ray PLT 169 103/ul Normal 150-450 [facility] Comment on above: Performed By: #### C BC #### [facility] [address] [address] [address] Belkis Ray RBC 4.02 106/ul Critically low 4.20-5.40 [facility] Comment on above: Performed By: #### C BC #### [facility] [address] [address] [address] Belkis Ray WBC 7.4 103/ul Normal 4.0-11.0 [facility] Comment on above: Performed By: #### C BC #### [facility] [address] [place] [address] Dr. Belkis Ray PROF CHEM 8 (BAS METB)on Anion gap [Moles/Vol] 11.5 mmol/L Normal [facility] Comment on above: Performed By: #### T SH, PREGQNT #### [facility] [address] [address] [address] Belkis Ray Calcium [Mass/Vol] 9.1 mg/dL Normal 8.5-10.1 [facility] Comment on above: Performed By: #### T SH, PREGQNT #### [facility] [address] [address] [address] Belkis Ray Chloride [Moles/Vol] 103 mmol/L Normal 98-107 [facility] Comment on above: Performed By: #### T SH, PREGQNT #### [facility] [address] [address] [address] Belkis Ray CO2 [Moles/Vol] 26.4 mmol/L Normal 21.0-32.0 [facility] Comment on above: Performed By: #### T SH, PREGQNT #### [facility] [address] [address] [address] Belkis Ray Creatinine [Mass/Vol] 0.58 mg/dL Normal 0.55-1.02 [facility] Comment on above: Performed By: #### T SH, PREGQNT #### [facility] [address] [place] [address] Dr. Belkis Ray EGFR-AF SLOVENIAN >60 Normal >=60 [facility] Comment on above: Performed By: #### T SH, PREGQNT #### [facility] [address] [address] [address] Belkis Ray EGFR-NON AF SLOVENIAN >60 Normal >=60 [facility] Comment on above: Performed By: #### T SH, PREGQNT #### [facility] [address] [address] [address] Belkis Ray Glucose [Mass/Vol] 85 mg/dL Normal 74-106 [facility] Comment on above: Performed By: #### T SH, PREGQNT #### [facility] [address] [place] [address] Dr. Belkis Ray Potassium [Moles/Vol] 3.9 mmol/L Normal 3.5-5.1 [facility] Comment on above: Performed By: #### T SH, PREGQNT #### [facility] [address] [place] [address] Dr. Belkis Ray Sodium [Moles/Vol] 137 mmol/L Normal 136-145 [facility] Comment on above: Performed By: #### T SH, PREGQNT #### [facility] [address] [place] [address] Dr. Belkis Ray Urea nitrogen [Mass/Vol] 11.0 mg/dL Normal 7.0-18.0 [facility] Comment on above: Performed By: #### T SH, PREGQNT #### [facility] [address] [place] [address] Dr. Belkis Ray Urea nitrogen/Creatinine [Mass ratio] 19.0 mg/mg Normal [facility] Comment on above: Performed By: #### T SH, PREGQNT #### [facility] [address] [place] [address] Dr. Belkis Ray TSHon 10-15-2022 TSH 1.286 uIU/mL Normal 0.358-3.[address] [facility] Comment on above: Performed By: #### T SH, PREGQNT #### [facility] [address] [place] [address] Dr. Belkis Ray CBC AUTO DIFFon 08-13-2022 BASO # 0.0 103/ul Normal 0.0-0.1 [facility] Comment on above: Performed By: #### C BC #### [facility] [address] [place] [address] Dr. Belkis Ray Basophils/100 WBC (Bld) 0.5 % Normal 0.2-2.0 [facility] Comment on above: Performed By: #### C BC #### [facility] [address] [place] [address] Dr. Belkis Ray EO # 0.2 103/ul Normal 0.0-0.7 [facility] Comment on above: Performed By: #### C BC #### [facility] [address] [place] [address] Dr. Belkis Ray Eosinophils/100 WBC (Bld) 2.2 % Normal 0.9-7.0 [facility] Comment on above: Performed By: #### C BC #### [facility] [address] [place] [address] Dr. Belkis Ray Erythrocyte distribution width (RBC) [Ratio] 13.7 % Normal 11.0-15.0 [facility] Comment on above: Performed By: #### C BC #### [facility] [address] [place] [address] Dr. Belkis Ray Hematocrit (Bld) [Volume fraction] 41.1 % Normal 36.0-48.0 [facility] Comment on above: Performed By: #### C BC #### [facility] [address] [place] [address] Dr. Belkis Ray Hemoglobin (Bld) [Mass/Vol] 13.3 g/dL Normal 12.0-16.0 [facility] Comment on above: Performed By: #### C BC #### [facility] [address] [place] [address] Dr. Belkis Ray IG # 0.01 10e3/ul Normal 0.00-0.03 [facility] Comment on above: Performed By: #### C BC #### [facility] [address] [place] [address] Dr. Belkis Ray IG % 0.1 % Normal 0.0-0.5 [facility] Comment on above: Performed By: #### C BC #### [facility] [address] [place] [address] Dr. Belkis Ray LYMPH # 2.5 103/ul Normal 1.2-3.8 [facility] Comment on above: Performed By: #### C BC #### [facility] [address] [place] [address] Dr. Belkis Ray Lymphocytes/100 WBC (Bld) 33.0 % Normal 20.5-60.0 [facility] Comment on above: Performed By: #### C BC #### [facility] [address] [place] [address] Dr. Belkis Ray MANUAL DIFF REQ NO Normal [facility] Comment on above: Performed By: #### C BC #### [facility] [address] [place] [address] Dr. Belkis Ray MCH (RBC) [Entitic mass] 30.5 pg Normal 26.7-34.0 [facility] Comment on above: Performed By: #### C BC #### [facility] [address] [place] [address] Dr. Belkis Ray MCHC (RBC) [Mass/Vol] 32.4 g/dL Normal 29.9-35.2 [facility] Comment on above: Performed By: #### C BC #### [facility] [address] [place] [address] Dr. Belkis Ray MCV (RBC) [Entitic vol] 94.3 fL Normal 81.0-99.0 [facility] Comment on above: Performed By: #### C BC #### [facility] [address] [place] [address] Dr. Belkis Ray MONO # 0.3 103/ul Normal 0.3-0.8 [facility] Comment on above: Performed By: #### C BC #### [facility] [address] [place] [address] Dr. Belkis Ray Monocytes/100 WBC (Bld) 4.2 % Normal 1.7-12.0 [facility] Comment on above: Performed By: #### C BC #### [facility] [address] [place] [address] Dr. Belkis Ray NEUT # 4.6 103/ul Normal 1.4-6.5 [facility] Comment on above: Performed By: #### C BC #### [facility] [address] [place] [address] Dr. Belkis Ray Neutrophils/100 WBC (Bld) 60.0 % Normal 43.0-75.0 [facility] Comment on above: Performed By: #### C BC #### [facility] [address] [place] [address] Dr. Belkis Ray Platelet mean volume (Bld) [Entitic vol] 9.3 fL Critically low 9.5-13.5 [facility] Comment on above: Performed By: #### C BC #### [facility] [address] [place] [address] Dr. Belkis Ray PLT 182 103/ul Normal 150-450 [facility] Comment on above: Performed By: #### C BC #### [facility] [address] [place] [address] Dr. Belkis Ray RBC 4.36 106/ul Normal 4.20-5.40 [facility] Comment on above: Performed By: #### C BC #### [facility] [address] [place] [address] Dr. Belkis Ray WBC 7.6 103/ul Normal 4.0-11.0 [facility] Comment on above: Performed By: #### C BC #### [facility] [address] [place] [address] Dr. Belkis Ray PROF 14(COMP METB)on 022 Albumin [Mass/Vol] 3.9 g/dL Normal 3.4-5.0 [facility] Comment on above: Performed By: #### C MP #### [facility] [address] [place] [address] Dr. Belkis Ray Albumin/Globulin [Mass ratio] 1.1 {ratio} Normal [facility] Comment on above: Performed By: #### C MP #### [facility] [address] [place] [address] Dr. Belkis Ray ALP [Catalytic activity/Vol] 70 U/L Normal 46-116 [facility] Comment on above: Performed By: #### C MP #### [facility] [address] [place] [address] Dr. Belkis Ray ALT [Catalytic activity/Vol] 50 U/L Normal 14-59 [facility] Comment on above: Performed By: #### C MP #### [facility] [address] [place] [address] Dr. Belkis Ray Anion gap [Moles/Vol] 14.1 mmol/L Normal [facility] Comment on above: Performed By: #### C MP #### [facility] [address] [place] [address] Dr. Belkis Ray AST [Catalytic activity/Vol] 30 U/L Normal 15-37 [facility] Comment on above: Performed By: #### C MP #### [facility] [address] [place] [address] Dr. Belkis Ray Bilirubin [Mass/Vol] 0.7 mg/dL Normal 0.2-1.0 [facility] Comment on above: Performed By: #### C MP #### [facility] [address] [place] [address] Dr. Belkis Ray Calcium [Mass/Vol] 9.1 mg/dL Normal 8.5-10.1 [facility] Comment on above: Performed By: #### C MP #### [facility] [address] [place] [address] Dr. Belkis Ray Chloride [Moles/Vol] 105 mmol/L Normal 98-107 [facility] Comment on above: Performed By: #### C MP #### [facility] [address] [address] [address] Belkis Ray CO2 [Moles/Vol] 24.8 mmol/L Normal 21.0-32.0 [facility] Comment on above: Performed By: #### C MP #### [facility] [address] [address] [address] Belkis Ray Creatinine [Mass/Vol] 0.59 mg/dL Normal 0.55-1.02 [facility] Comment on above: Performed By: #### C MP #### [facility] [address] [address] [address] Belkis Ray EGFR-AF SLOVENIAN >60 Normal >=60 [facility] Comment on above: Performed By: #### C MP #### [facility] [address] [place] [address] Dr. Belkis Ray EGFR-NON AF SLOVENIAN >60 Normal >=60 [facility] Comment on above: Performed By: #### C MP #### [facility] [address] [place] [address] Dr. Belkis Ray Globulin (S) [Mass/Vol] 3.5 g/dL Normal [facility] Comment on above: Performed By: #### C MP #### [facility] [address] [place] [address] Dr. Belkis Ray Glucose [Mass/Vol] 147 mg/dL Critically high 74-106 [facility] Comment on above: Performed By: #### C MP #### [facility] [address] [place] [address] Dr. Belkis Ray Potassium [Moles/Vol] 3.9 mmol/L Normal 3.5-5.1 [facility] Comment on above: Performed By: #### C MP #### [facility] [address] [place] [address] Dr. Belkis Ray Protein [Mass/Vol] 7.4 g/dL Normal 6.4-8.2 [facility] Comment on above: Performed By: #### C MP #### [facility] [address] [place], [place] [id number] Dr. Belkis Ray Sodium [Moles/Vol] 140 mmol/L Normal 136-145 [facility] Comment on above: Performed By: #### C MP #### [facility] [address] [address] [address] Belkis Ray Urea nitrogen [Mass/Vol] 9.0 mg/dL Normal 7.0-18.0 [facility] Comment on above: Performed By: #### C MP #### [facility] [address] [address] [address] Belkis Ray Urea nitrogen/Creatinine [Mass ratio] 15.3 mg/mg Normal [facility] Comment on above: Performed By: #### C MP #### [facility] [address] [address] [address] Belkis Luciano 12-24-2021 MARILYNN Telephone (GASTNO) KAJALRADHA ([id number]) 1990 F Date Time Provider Department 12/24/21 VICKY CEDILLO During your visit today, we recorded the following information about you: Jamila Lockhart 12/24/2021 1:47 PM Signed Patient calling Asking when she needs to have labs drawn again? And if we can fax the orders to [facility]? FAX [phone] Erica Le RN 12/24/2021 2:25 PM Signed Attempted to call pt, no answer. Left detailed voice msg that labs were ordered 11/26/2021 and I faxed reqs to number below.. Instructed to call back with any questions. Erica Le RN Allergies As of Date: 12/24/2021 Noted Allergy Reaction CIPROFLOXACIN 11/17/2018 16 - Unknown PENICILLINS 01/02/2017 11 - Vomiting SULFAMETHOXAZOLE 06/09/2021 14 - Other: See Comments TRIMETHOPRIM 06/09/2021 14 - Other: See Comments Date Reviewed: 08/27/2021 Reviewed by: Michelle Resendiz Ma - Fully Assessed Reason for Visit: Orders [681] Cmt: labs Prescriptions as of 12/24/2021 - ALPRAZolam (XANAX) 0.25 mg tablet Alprazolam Active 0.25 MG PO As Directed July 11, 2021 11:07am - dicyclomine (BENTYL) 20 mg tablet TAKE 1 TABLET BY MOUTH 4 TIMES A DAY FOR 30 DAYS - folic acid 1 mg tablet Take 1 mg by mouth once daily. - ibuprofen (MOTRIN) 800 mg tablet Take 800 mg by mouth. - levoFLOXacin (LEVAQUIN) 750 mg tablet TAKE 1 TABLET BY MOUTH EVERY DAY FOR 5 DAYS - nabumetone (RELAFEN) 500 mg tablet Take 500 mg by mouth three times daily. - nicotine (NICODERM) 21 mg/24 hr APPLY 1 PATCH TO THE SKIN EVERY 24 HOURS - oxyCODONE IR (ROXICODONE) 5 mg immediate release tablet Oxycodone (Roxicodone) 5 mg tablet Active 2.5 MG PO Daily 7 June 11, 2021 2:50pm - prednisoLONE (PRELONE) 15 mg/5 mL syrup give 13 milliliters by mouth once daily - predniSONE (DELTASONE) 20 mg tablet Prednisone Active 20 MG PO Daily 7 June 11, 2021 2:57pm - spironolactone (ALDACTONE) 25 mg tablet Spironolactone Active 25 MG PO As Directed July 11, 2021 11:07am - thiamine (VITAMIN B1) 100 mg tablet Take 100 mg by mouth once daily. - venlafaxine ER (EFFEXOR XR) 37.5 mg 24 hr capsule Venlafaxine Active 37.5 MG PO Daily at bedtime July 11, 2021 11:07am - VITAMIN B COMPLEX ORAL Vitamin B Complex Active 1 TAB PO Daily June 09, 2021 1:02am Problem List As Of Date: 12/24/2021 (None) Encounter Status:Closed by ERICA LE RN on 12/24/21 [facility] HISTORY PHYSICALon HISTORY PHYSICAL HNO ID: [id number] Author: Erica Le RN Service: ? Author Type: ? Type: HANDP Filed: 11/26/2021 3:10 PM Note Text: Hepatology Clinic Established patient Previous work up includes: Last OV 08/27/2021. 06/07/2021 RUQ US-Liver is enlarged measuring 27 cm. There is heterogeneity of the echotexture of the liver along with nodularity of the liver surface suggesting diffuse hepatocellular disease such as cirrhosis. Clinical correlation is suggested. 2. There is thickening of the gallbladder wall which measures 5 mm. Patient had no pain upon scanning over the gallbladder. No stones or sludge was identified. 3. There is a mild amount of ascites in the right upper quadrant. 4. The remainder of the right upper quadrant was unremarkable. 06/08/2021 RUQ US-CIRRHOTIC MORPHOLOGY OF THE LIVER WITH HEPATOPEDAL FLOW WITHIN THE MAIN PORTAL VEIN AND ASCITES. 06/08/2021 CTAP w/ contrast-BIBASILAR ATELECTASIS. SIGNS OF CIRRHOSIS WITH PORTAL HYPERTENSION INCLUDING HEPATOSPLENOMEGALY, VARICES AND ASCITES. HETEROGENEOUS LIVER WITH NODULARITY. NEOPLASM IS NOT EXCLUDED AND FOLLOW-UP IS THEREFORE SUGGESTED. BORDERLINE HYDROPIC GALLBLADDER, WITHOUT OBVIOUS STONES. NO ADDITIONAL ACUTE FINDINGS. 06/10/2021 MRI abd w/o and w/ contrast-Findings consistent with hepatic cirrhosis and portal venous hypertension contributing to splenomegaly. This is unchanged when compared to the prior exam. There is intra-abdominal ascites. There is edema along the gallbladder wall presumably relating to intra-abdominal ascites. There is no evidence of mass or abnormal postcontrast enhancement to suggest hepatocellular carcinoma. No intrahepatic or extrahepatic biliary ductal dilatation is noted. 07/02/2021 Labs-INR 1.5, Hematocrit 40.2, MCV 103.9, platelets 187 07/06/2021 HIDA w/ EF-patent ducts, EF 48% 2021 Labs-T bili 1.2, ALP 63, AST 47, ALT 73 , Na+ 1.5, K+ 4.2, BUN 14.0, Creat 0.50 Component Latest Ref Rng AND Units 08/27/2021 Glucose 65 - 100 mg/dL 111 (H) BUN 8 - 25 mg/dL 8 Creatinine 0.70 - 1.40 mg/dL 0.52 (L) Sodium 132 - 148 mmol/L 136 Potassium 3.5 - 5.0 mmol/L 3.9 Chloride 98 - 110 mmol/L 102 CO2 23 - 32 mmol/L 25 Anion Gap 9 - 18 mmol/L 9 Calcium 8.5 - 10.5 mg/dL 9.4 eGFR- >60 >60 eGFR-All Other Races >60 . >60 WBC 3.70 - 11.00 k/uL 6.28 RBC 3.90 - 5.20 m/uL 3.52 (L) Hemoglobin 11.5 - 15.5 g/dL 11.7 Hematocrit 36.0 - 46.0 % 35.7 (L) MCV 80.0 - 100.0 fL 101.4 (H) MCH 26.0 - 34.0 pG 33.2 MCHC 30.5 - 36.0 g/dL 32.8 RDW-CV 11.5 - 15.0 % 13.0 Platelet Count 150 - 400 k/uL 116 (L) MPV 9.0 - 12.7 fL 10.1 Absolute nRBC <0.01 k/uL <0.01 Albumin 3.5 - 5.0 g/dL 4.1 Bilirubin, Total 0.2 - 1.3 mg/dL 1.1 Bilirubin, Conjug <0.2 mg/dL 0.3 (H) Alkaline Phosphatase 34 - 123 U/L 60 AST 7 - 40 U/L 38 ALT 0 - 45 U/L 28 Protein, Total 6.0 - 8.4 g/dL 7.1 CARRIE by EIA, Qual Negative Negative CARRIE by EIA OD Ratio 0.7 PT Sec 9.7 - 13.0 sec 13.7 (H) PT INR 0.9 - 1.3 1.3 Alpha-1 Antitryp Interp See Below IgG 700 - 1,600 mg/dL 996 Liver-Kidney Microsomal Abs <1:20 <1:20 Mitochondrial Ab Screen Negative Negative Smooth Muscle Ab Screen Negative Negative Ferritin 14.7 - 205.1 ng/mL 53.9 Hep B Core Ab, Total Negative Negative Hep B Surf Ab Quant <8.00 mIU/mL <8.00 Hep B Surface Ag Negative Negative Hepatitis A Antibody IgG Negative Negative Hep C Antibody IA Negative Negative Ceruloplasmin 16 - 45 mg/dL 20 AFP <11.0 ng/mL 6.0 Normal [facility] AFPon 08-27-2021 AFP 6.0 ng/mL Normal <11.0 [facility] Comment on above: Result Comment: AFP levels <11 ng/ml can be found in a variety of conditions, Hepatocellular Carcinoma and Non-seminomatous testicular cancer among others. Correlation with clinical picture and other test results including histopathology and radiology, where applicable, is recommended. Performed By: #### H FP, BMP, HBSAG, PT, CBC, FERR ####[address] [place] [phone]#### AHBCOT, SMTHS, CERULO, AHAVG, AHBSQ, AHCV1B, ANAS, MITOS, AFP, IGG ####[address] [phone]#### LKM ####[address] [phone] ANAon 08-27-2021 CARRIE by EIA 0.7 OD Ratio Normal [facility] Comment on above: Result Comment: OD R atio is interpreted as follows: Negative <1.0 Positive >=1.0 Performed By: #### H FP, BMP, HBSAG, PT, CBC, FERR ####[address] [place] [phone]#### AHBCOT, SMTHS, CERULO, AHAVG, AHBSQ, AHCV1B, ANAS, MITOS, AFP, IGG ####[address] [phone]#### LKM ####[address] [phone] CARRIE by EIA, Qual Negative Normal Negative [facility] Comment on above: Performed By: #### H FP, BMP, HBSAG, PT, CBC, FERR ####[address] [phone]#### AHBCOT, SMTHS, CERULO, AHAVG, AHBSQ, AHCV1B, ANAS, MITOS, AFP, IGG ####[address] [place], [place] [phone]#### LKM ####[id number] [place], [place] [phone] Alpha-1 Antitryp [facility] 08-27 Alpha-1 Antitryp Int See Below Normal [facility] Comment on above: Result Comment: (NOT E) Alpha-1 Antitrypsin Genotyping Laboratory Accession Number: [id number] Result: No Variant Detected in SERPINA1 (PI*MM) Interpretation: DNA testing indicates that this patient does not have the S, Z, F, or I alleles of SERPINA1, the alpha-1 antitrypsin gene. Guidance: Genetic consultation and counseling of at risk family members regarding this laboratory testing may be considered as clinically appropriate. Patients with no variants of SERPINA1 typically have serum alpha-1 antitrypsin levels between 102-254 mg/dL. If this patient has a serum alpha-1 antitrypsin level that is not consistent with this genotype and alpha-1 antitrypsin deficiency caused by a rare variant is clinically suspected, consider performing SERPINA1 gene sequencing. Methodology: Isolated genomic DNA from the patient's blood specimen is evaluated for four variants in the alpha-1 antitrypsin gene SERPINA1 (RefSeq [id number]; GRCh38/hg38) by multiplex polymerase chain reaction (PCR) followed by melting curve analysis. These included the two most common pathogenic variants: S (c.863A>T, p.Vfo972Gln, g.[id number]), Z (c.1096G>A, p.Bpc301Pbg, g.[id number]), and the rarer variants: F (c.739C>T, p.Atw230Bkr, g.[id number]), I (c.187C>T, p.Ija07Xew, g.[id number]). Limitations: This Laboratory Developed Test (LDT) is designed to detect the S, Z, F and I alleles. The S and Z alleles comprise 95% of non-wild type genotypes. Uncommon variants or Single Nucleotide Polymorphisms may affect binding of LightMix or LightSNiP probes and may result in a false negative, false positive, or indeterminate result. Absence of the S, Z, F, and I alleles is interpreted as PI*MM genotype. However, there are over 100 known rare variants of SERPINA1 that are not detected by this LDT. Therefore, correlation of the genotype with the patient's serum alpha-1 antitrypsin level and clinical manifestations is strongly recommended. Frequency of S, Z, F and I Alleles in the general population: S: Heterozygous 2%; Homozygous 0.04% Z: Heterozygous 1%; Homozygous 0.01% F: Heterozygous 0.3%; Homozygous 0.001% I: Heterozygous 0.1%; Homozygous unknown Allele frequency information was gathered from the [employer] ([employer]) and includes data from , , , and populations (supporting data in references). Disclaimer: This test was developed and its performance characteristics determined by [facility]'s [facility] Pathology [facility] Laboratory [facility] [place] ([facility]). It has not been cleared or approved by the FDA. -[facility] is regulated under CLIA as certified to perform high- complexity testing. This test is used for clinical purposes. It should not be regarded as investigational or for research. References: 1) Cleopatra LUTZ, Anyi G, Krystina ML, Ralph M, Charbel CE, K, Mery DK, Oanh SL, Ar JM, Jono MarmolejoK, Olivia C, Anirudh J. The Diagnosis and Management of Alpha-1 Antritrypsin Deficiency in the Adult. Chronic Obstr Pulm Dis. 2016 Apr 22;3:668-682. 2) Ellen JA, Jenifer ON, Araceli ER, Mariela DG. a1-Antitrypsin phenotypes and associated serum protein concentrations in a large clinical population. Chest.2013 Feb;143(4):1000-8. 3) Vito Carter, Senthil NA, Don CR, Katie FJ, Haresh SJ, Annabelle AF. Molecular characterisation of three nlnck-6-ftgarkjaohz deficiency variants: proteinase inhibitor (Pi) nullcardiff (Icb867----Gpr); PiMmalton (Als33----conoapbc) and PiI (Gtn04----Bnz). Hum Smitha. 1988;84(1):55-8. 4) Con TRONCOSO and Cleopatra LUTZ. Clinical practice. Alpha1-antitrypsin deficiency. N Engl J Med. 2009 Apr 25;360(51)0461-56. 5) Christopher NJ, Bora F, Tova RA. The significance of the F variant of pomjt-1-gixgqdztrsw and unique case report of a PiFF homozygote. [facility]MC Pulm Med. 2013Jun 23;14:132. 6) Jono MarmolejoK, Babita FL, and Yusuf Schwartz. Alpha-1 Antitrypsin Deficiency. 2005Sep 12 [Updated 2017 December 05]. In: Jairo RA, Brayden MP, Rudy TO, et al., editors. GeneReviews [Internet]. [place] ([place]): [facility], [place]; 9534-5899. Available from: http://www.ncbi.nlm.nih.gov/books/CDU9328/ As reviewed by Jacek Lomeli, PhD, [facility] Performed By: #### H A1AT #### [place] [phone] Basic Metabolic Panlon 08-27 Anion gap [Moles/Vol] 9 mmol/L Normal 9-18 [facility] Comment on above: Performed By: #### H FP, BMP, HBSAG, PT, CBC, FERR #### [place] [phone] #### AHBCOT, SMTHS, CERULO, AHAVG, AHBSQ, AHCV1B, ANAS, MITOS, AFP, IGG #### [facility] [address] [place], [place] [address] #### LKM #### [facility] [address] [place] [address] Calcium [Mass/Vol] 9.4 mg/dL Normal 8.5-10.5 [facility] Comment on above: Performed By: #### H FP, BMP, HBSAG, PT, CBC, FERR #### [place] [address] #### AHBCOT, SMTHS, CERULO, AHAVG, AHBSQ, AHCV1B, ANAS, MITOS, AFP, IGG #### [place] [phone] #### LKM #### [facility] [address] [place] [phone] Chloride [Moles/Vol] 102 mmol/L Normal 98-110 [facility] Comment on above: Performed By: #### H FP, BMP, HBSAG, PT, CBC, FERR #### [place] [phone] #### AHBCOT, SMTHS, CERULO, AHAVG, AHBSQ, AHCV1B, ANAS, MITOS, AFP, IGG #### [place] [phone] #### LKM #### [place] [phone] CO2 [Moles/Vol] 25 mmol/L Normal 23-32 [facility] Comment on above: Performed By: #### H FP, BMP, HBSAG, PT, CBC, FERR #### [place] [phone] #### AHBCOT, SMTHS, CERULO, AHAVG, AHBSQ, AHCV1B, ANAS, MITOS, AFP, IGG #### [place] [phone] #### LKM #### [place] [phone] Creatinine [Mass/Vol] 0.52 mg/dL Low 0.70-1.40 [facility] Comment on above: Performed By: #### H FP, BMP, HBSAG, PT, CBC, FERR #### [place] [phone] #### AHBCOT, SMTHS, CERULO, AHAVG, AHBSQ, AHCV1B, ANAS, MITOS, AFP, IGG #### [place] [address]30 [place] [phone] #### LKM #### [facility] [address] [place] [address] eGFR- Amer. >60 Normal >60 [facility] Comment on above: Performed By: #### H FP, BMP, HBSAG, PT, CBC, FERR #### [place] [phone] #### AHBCOT, SMTHS, CERULO, AHAVG, AHBSQ, AHCV1B, ANAS, MITOS, AFP, IGG #### [place] [phone] #### LKM #### [facility] [address] [address] eGFR-All Other Races >60 Normal >60 [facility] Comment on above: Result Comment: eGFR (Estimated GFR) Units of measure: mL/min/1.73 meters squared eGFR is derived from the reexpressed MDRD Study equation using the following parameters: serum creatinine, age, gender and race. The creatinine assay has been calibrated to be traceable to IDMS. An eGFR <60 mL/min/1.73m2 for >3 months is consistent with chronic kidney disease. Refer to KDOQI guidelines for clinical interpretation. In patients with unstable renal function, e.g. those with acute kidney injury, the eGFR may not accurately reflect actual GFR. Performed By: #### H FP, BMP, HBSAG, PT, CBC, FERR #### [place] [address] #### AHBCOT, SMTHS, CERULO, AHAVG, AHBSQ, AHCV1B, ANAS, MITOS, AFP, IGG #### [place] [phone] #### LKM #### [facility] [address], [place] [id number] Glucose [Mass/Vol] 111 mg/dL High 65-100 [facility] Comment on above: Performed By: #### H FP, BMP, HBSAG, PT, CBC, FERR #### [place] [phone] #### AHBCOT, SMTHS, CERULO, AHAVG, AHBSQ, AHCV1B, ANAS, MITOS, AFP, IGG #### [place] [phone] #### LKM #### [facility] [address] [place] [address] Potassium [Moles/Vol] 3.9 mmol/L Normal 3.5-5.0 [facility] Comment on above: Performed By: #### H FP, BMP, HBSAG, PT, CBC, FERR #### [place] [phone] #### AHBCOT, SMTHS, CERULO, AHAVG, AHBSQ, AHCV1B, ANAS, MITOS, AFP, IGG #### [place] [phone] #### LKM #### [facility] [address] [place] [address] Sodium [Moles/Vol] 136 mmol/L Normal 132-148 [facility] Comment on above: Performed By: #### H FP, BMP, HBSAG, PT, CBC, FERR #### [place] [phone] #### AHBCOT, SMTHS, CERULO, AHAVG, AHBSQ, AHCV1B, ANAS, MITOS, AFP, IGG #### [place] [phone] #### LKM #### [facility] [address] [place] [address] Urea nitrogen [Mass/Vol] 8 mg/dL Normal 8-25 [facility] Comment on above: Performed By: #### H FP, BMP, HBSAG, PT, CBC, FERR #### [place] [phone] #### AHBCOT, SMTHS, CERULO, AHAVG, AHBSQ, AHCV1B, ANAS, MITOS, AFP, IGG #### [place] [phone] #### LKM #### [facility] [address] [place] [address] CBCon 08-27-2021 Absolute nRBC <0.01 Normal <0.01 [facility] Comment on above: Performed By: #### H FP, BMP, HBSAG, PT, CBC, FERR #### [place] [phone] #### AHBCOT, SMTHS, CERULO, AHAVG, AHBSQ, AHCV1B, ANAS, MITOS, AFP, IGG #### [place] [phone] #### LKM #### [facility] [address] [place] [address] Erythrocyte distribution width (RBC) [Ratio] 13.0 % Normal 11.5-15.0 [facility] Comment on above: Performed By: #### H FP, BMP, HBSAG, PT, CBC, FERR #### [place] [phone] #### AHBCOT, SMTHS, CERULO, AHAVG, AHBSQ, AHCV1B, ANAS, MITOS, AFP, IGG #### [place] [address] [place] [address] #### LKM #### [facility] [address] [place] [address] Hematocrit (Bld) [Volume fraction] 35.7 % Low 36.0-46.0 [facility] Comment on above: Performed By: #### H FP, BMP, HBSAG, PT, CBC, FERR #### [place] [phone] #### AHBCOT, SMTHS, CERULO, AHAVG, AHBSQ, AHCV1B, ANAS, MITOS, AFP, IGG #### [place] [phone] #### LKM #### [facility] [address] [place] [address] Hemoglobin (Bld) [Mass/Vol] 11.7 g/dL Normal 11.5-15.5 [facility] Comment on above: Performed By: #### H FP, BMP, HBSAG, PT, CBC, FERR #### [place] [phone] #### AHBCOT, SMTHS, CERULO, AHAVG, AHBSQ, AHCV1B, ANAS, MITOS, AFP, IGG #### [place] [phone] #### LKM #### [facility] [address] [place] [address] MCH 33.2 pG Normal 26.0-34.0 [facility] Comment on above: Performed By: #### H FP, BMP, HBSAG, PT, CBC, FERR #### [place] [phone] #### AHBCOT, SMTHS, CERULO, AHAVG, AHBSQ, AHCV1B, ANAS, MITOS, AFP, IGG #### [place] [phone] #### LKM #### [facility] [address] [place] [address] MCHC (RBC) [Mass/Vol] 32.8 g/dL Normal 30.5-36.0 [facility] Comment on above: Performed By: #### H FP, BMP, HBSAG, PT, CBC, FERR #### [place] [phone] #### AHBCOT, SMTHS, CERULO, AHAVG, AHBSQ, AHCV1B, ANAS, MITOS, AFP, IGG #### [place] [phone] #### LKM #### [facility] [address], [place] [address] [phone] MCV (RBC) [Entitic vol] 101.4 fL High 80.0-100.0 [facility] Comment on above: Performed By: #### H FP, BMP, HBSAG, PT, CBC, FERR #### [place] [phone] #### AHBCOT, SMTHS, CERULO, AHAVG, AHBSQ, AHCV1B, ANAS, MITOS, AFP, IGG #### [place] [phone] #### LKM #### [facility] [address] [place], [place] [address] [phone] Platelet mean volume (Bld) [Entitic vol] 10.1 fL Normal 9.0-12.7 [facility] Comment on above: Performed By: #### H FP, BMP, HBSAG, PT, CBC, FERR #### [place] [phone] #### AHBCOT, SMTHS, CERULO, AHAVG, AHBSQ, AHCV1B, ANAS, MITOS, AFP, IGG #### [place] [phone] #### LKM #### [facility] [address] [place] [address] Platelets (Bld) [#/Vol] 116 10*3/uL Low 150-400 [facility] Comment on above: Performed By: #### H FP, BMP, HBSAG, PT, CBC, FERR #### [place] [phone] #### AHBCOT, SMTHS, CERULO, AHAVG, AHBSQ, AHCV1B, ANAS, MITOS, AFP, IGG #### [place] [phone] #### LKM #### [facility] [address] [place] [phone] RBC (Bld) [#/Vol] 3.52 10*6/uL Low 3.90-5.20 [facility] Comment on above: Performed By: #### H FP, BMP, HBSAG, PT, CBC, FERR #### [place] [phone] #### AHBCOT, SMTHS, CERULO, AHAVG, AHBSQ, AHCV1B, ANAS, MITOS, AFP, IGG #### [place] [phone] #### LKM #### [facility] [address] [place] [phone] WBC (Bld) [#/Vol] 6.28 10*3/uL Normal 3.70-11.00 [facility] Comment on above: Performed By: #### H FP, BMP, HBSAG, PT, CBC, FERR #### [place] [phone] #### AHBCOT, SMTHS, CERULO, AHAVG, AHBSQ, AHCV1B, ANAS, MITOS, AFP, IGG #### [place] [address] #### LKM #### [facility] [address] [place] [address] CNOVon 08-27-2021 CNOV Office Visit ([id number] ) RADHA HINES ([id number]) 1990 F Date Time Provider Department 08/27/21 4:00 PM VICKY CEDILLO [id number] During your visit today, we recorded the following information about you: Temperature Pulse Blood pressure Weight 97.9 degrees 98/minute 116/61 64 kg Height 1.562 m Michelle Resendiz Ma 08/27/2021 2:15 PM Signed What is the reason for your visit today? Consult Who is your referring physician? Are you having poor oral intake? NO Have you had unintentional weight loss of 15 lbs/7 Kg in the last 3-6 months? NO Bowels: regular Wound: Temperature: No Drains: No Vicky Cedillo MD 08/27/2021 2:51 PM Signed Hepatology Clinic Consult patient Consultation requested by Dr. Ulices Grayson for an opinion regarding liver cirrhosis. My final recommendations will be communicated back to the requesting physician by way of shared medical record or fax. Reason for Consult and HPI Radha Hines is a 31 year old female with liver cirrhosis complicated by ascites and portal hypertension who is referred to the Liver clinic for management Patient stopped alcohol on 05/31/2021. Before that she used drink 12 beers for 10 years. Patient has one tattoo, denied IVD use, intranasal cocaine or hx of blood transfusion prior to 1989. Denied family history of liver disease. Patient denies jaundice, Ascites , confusion/ hepatic encephalopathy, reversal of day/night sleep patterns, hematemesis or melena. Past Medical, Surgical, Family and Social Histories PAST MEDICAL HISTORY Diagnosis Date - Alcoholic cirrhosis of liver with ascites (HCC) - Liver disease PAST SURGICAL HISTORY Procedure Laterality Date - APPENDECTOMY No family history on file. Social History Tobacco Use - Smoking status: Current Every Day Smoker Packs/day: 0.50 Years: 13.00 Pack years: 6.50 Types: Cigarettes - Smokeless tobacco: Never Used Substance Use Topics - Alcohol use: Yes Comment: Lilly now. Was drinking 12 pack every day - Drug use: Not on file Allergies AND Current Medications ALLERGIES Allergen Reactions - Ciprofloxacin Unknown - Penicillins Vomiting - Sulfamethoxazole Other: See Comments - Trimethoprim Other: See Comments : Current Outpatient Medications Medication Sig - folic acid 1 mg tablet Take 1 mg by mouth once daily. - ibuprofen (MOTRIN) 800 mg tablet Take 800 mg by mouth. - oxyCODONE IR (ROXICODONE) 5 mg immediate release tablet Oxycodone (Roxicodone) 5 mg tablet Active 2.5 MG PO Daily 7 5 June 11, 2021 2:50pm - spironolactone (ALDACTONE) 25 mg tablet Spironolactone Active 25 MG PO As Directed July 11, 2021 11:07am - thiamine (VITAMIN B1) 100 mg tablet Take 100 mg by mouth once daily. - venlafaxine ER (EFFEXOR XR) 37.5 mg 24 hr capsule Venlafaxine Active 37.5 MG PO Daily at bedtime July 11, 2021 11:07am - VITAMIN B COMPLEX ORAL Vitamin B Complex Active 1 TAB PO Daily June 09, 2021 1:02am - ALPRAZolam (XANAX) 0.25 mg tablet Alprazolam Active 0.25 MG PO As Directed July 11, 2021 11:07am - dicyclomine (BENTYL) 20 mg tablet TAKE 1 TABLET BY MOUTH 4 TIMES A DAY FOR 30 DAYS (Patient not taking: TAKE 1 TABLET BY MOUTH 4 TIMES A DAY FOR 30 DAYS) - levoFLOXacin (LEVAQUIN) 750 mg tablet TAKE 1 TABLET BY MOUTH EVERY DAY FOR 5 DAYS (Patient not taking: TAKE 1 TABLET BY MOUTH EVERY DAY FOR 5 DAYS) - nabumetone (RELAFEN) 500 mg tablet Take 500 mg by mouth three times daily. (Patient not taking: Reported on 08/10/2021 ) - nicotine (NICODERM) 21 mg/24 hr APPLY 1 PATCH TO THE SKIN EVERY 24 HOURS (Patient not taking: APPLY 1 PATCH TO THE SKIN EVERY 24 HOURS) - prednisoLONE (PRELONE) 15 mg/5 mL syrup give 13 milliliters by mouth once daily (Patient not taking: give 13 milliliters by mouth once daily) - predniSONE (DELTASONE) 20 mg tablet Prednisone Active 20 MG PO Daily 7 June 11, 2021 2:57pm (Patient not taking: Prednisone Active 20 MG PO Daily 7 June 11, 2021 2:57pm) No current facility-administered medications for this visit. Review Of Systems Pertinent positives per HPI. All others reviewed and negative. Physical Exam BP 116/61 (BP Site: Right Arm, BP Position: Sitting, BP Cuff Size: Regular Adult) Pulse 98 Temp 36.6 ?C (97.9 ?F) Ht 156.2 cm (5' 1.5 ) Wt 64 kg (141 lb) SpO2 98% BMI 26.21 kg/m? General appearance:well nourished, well hydrated, no acute distress Eyes External: conjunctivae and lids normal, No icterus Neck Neck: supple, no masses Respiratory Respiratory effort: no intercostal retractions or use of accessory muscles CTA b/l Cardiovascular Auscultation: no murmur, rub, or gallop Gastrointestinal Abdomen: soft, non-tender, no masses, bowel sounds normal Musculoskeletal RUE: no sparks erythema LUE: no sparks erythema LE: No edema Skin Inspection: no rashes, lesions, or ulcerations Neurologic No Asteri (more content not included)... Normal [facility] Ceruloplasminon 08-27-2021 Ceruloplasmin 20 mg/dL Normal 16-45 [facility] Comment on above: Performed By: #### H FP, BMP, HBSAG, PT, CBC, FERR #### [facility] [address] [place] [address] #### AHBCOT, SMTHS, CERULO, AHAVG, AHBSQ, AHCV1B, ANAS, MITOS, AFP, IGG #### [facility] [address] [place], [place] [address] #### LKM #### [facility] [address] [place] [address] Ferritinon 08-27-2021 Ferritin [Mass/Vol] 53.9 ng/mL Normal 14.7-205.1 [facility] Comment on above: Performed By: #### H FP, BMP, HBSAG, PT, CBC, FERR #### [facility] [address] [place] [address] #### AHBCOT, SMTHS, CERULO, AHAVG, AHBSQ, AHCV1B, ANAS, MITOS, AFP, IGG #### [facility] [address] [place] [address] #### LKM #### [facility] [address] [place] [address] HISTORY PHYSICALon HISTORY PHYSICAL HNO ID: [id number] Author: Vicky Cdeillo MD Service: ? Author Type: Physician Type: HANDP Filed: 08/27/2021 2:51 PM Note Text: Hepatology Clinic Consult patient Consultation requested by Dr. Ulices Grayson for an opinion regarding liver cirrhosis. My final recommendations will be communicated back to the requesting physician by way of shared medical record or fax. Reason for Consult and HPI Radha Hines is a 31 year old female with liver cirrhosis complicated by ascites and portal hypertension who is referred to the Liver clinic for management Patient stopped alcohol on 05/31/2021. Before that she used drink 12 beers for 10 years. Patient has one tattoo, denied IVD use, intranasal cocaine or hx of blood transfusion prior to 1989. Denied family history of liver disease. Patient denies jaundice, Ascites , confusion/ hepatic encephalopathy, reversal of day/night sleep patterns, hematemesis or melena. Past Medical, Surgical, Family and Social Histories PAST MEDICAL HISTORY Diagnosis Date - Alcoholic cirrhosis of liver with ascites (HCC) - Liver disease PAST SURGICAL HISTORY Procedure Laterality Date - APPENDECTOMY No family history on file. Social History Tobacco Use - Smoking status: Current Every Day Smoker Packs/day: 0.50 Years: 13.00 Pack years: 6.50 Types: Cigarettes - Smokeless tobacco: Never Used Substance Use Topics - Alcohol use: Yes Comment: Spber now. Was drinking 12 pack every day - Drug use: Not on file Allergies AND Current Medications ALLERGIES Allergen Reactions - Ciprofloxacin Unknown - Penicillins Vomiting - Sulfamethoxazole Other: See Comments - Trimethoprim Other: See Comments : Current Outpatient Medications Medication Sig - folic acid 1 mg tablet Take 1 mg by mouth once daily. - ibuprofen (MOTRIN) 800 mg tablet Take 800 mg by mouth. - oxyCODONE IR (ROXICODONE) 5 mg immediate release tablet Oxycodone (Roxicodone) 5 mg tablet Active 2.5 MG PO Daily 7 June 11, 2021 2:50pm - spironolactone (ALDACTONE) 25 mg tablet Spironolactone Active 25 MG PO As Directed July 11, 2021 11:07am - thiamine (VITAMIN B1) 100 mg tablet Take 100 mg by mouth once daily. - venlafaxine ER (EFFEXOR XR) 37.5 mg 24 hr capsule Venlafaxine Active 37.5 MG PO Daily at bedtime July 11, 2021 11:07am - VITAMIN B COMPLEX ORAL Vitamin B Complex Active 1 TAB PO Daily June 09, 2021 1:02am - ALPRAZolam (XANAX) 0.25 mg tablet Alprazolam Active 0.25 MG PO As Directed July 11, 2021 11:07am - dicyclomine (BENTYL) 20 mg tablet TAKE 1 TABLET BY MOUTH 4 TIMES A DAY FOR 30 DAYS (Patient not taking: TAKE 1 TABLET BY MOUTH 4 TIMES A DAY FOR 30 DAYS) - levoFLOXacin (LEVAQUIN) 750 mg tablet TAKE 1 TABLET BY MOUTH EVERY DAY FOR 5 DAYS (Patient not taking: TAKE 1 TABLET BY MOUTH EVERY DAY FOR 5 DAYS) - nabumetone (RELAFEN) 500 mg tablet Take 500 mg by mouth three times daily. (Patient not taking: Reported on 08/10/2021 ) - nicotine (NICODERM) 21 mg/24 hr APPLY 1 PATCH TO THE SKIN EVERY 24 HOURS (Patient not taking: APPLY 1 PATCH TO THE SKIN EVERY 24 HOURS) - prednisoLONE (PRELONE) 15 mg/5 mL syrup give 13 milliliters by mouth once daily (Patient not taking: give 13 milliliters by mouth once daily) - predniSONE (DELTASONE) 20 mg tablet Prednisone Active 20 MG PO Daily 7 June 11, 2021 2:57pm (Patient not taking: Prednisone Active 20 MG PO Daily 7 June 11, 2021 2:57pm) No current facility-administered medications for this visit. Review Of Systems Pertinent positives per HPI. All others reviewed and negative. Physical Exam BP 116/61 (BP Site: Right Arm, BP Position: Sitting, BP Cuff Size: Regular Adult) Pulse 98 Temp 36.6 ?C (97.9 ?F) Ht 156.2 cm (5' 1.5 ) Wt 64 kg (141 lb) SpO2 98% BMI 26.21 kg/m? General appearance:well nourished, well hydrated, no acute distress Eyes External: conjunctivae and lids normal, No icterus Neck Neck: supple, no masses Respiratory Respiratory effort: no intercostal retractions or use of accessory muscles CTA b/l Cardiovascular Auscultation: no murmur, rub, or gallop Gastrointestinal Abdomen: soft, non-tender, no masses, bowel sounds normal Musculoskeletal RUE: no sparks erythema LUE: no sparks erythema LE: No edema Skin Inspection: no rashes, lesions, or ulcerations Neurologic No Asterixis Mental Status Exam Orientation: oriented to time, place, and person Labs and Imaging Previous work up includes: 06/07/2021 RUQ US-Liver is enlarged measuring 27 cm. There is heterogeneity of the echotexture of the liver along with nodularity of the liver surface suggesting diffuse hepatocellular disease such as cirrhosis. Clinical correlation is suggested. 2. There is thickening of the gallbladder wall which measures 5 mm. Patient had no pain upon scanning over the gallbladder. No stones or sludge was identified. 3. There is a mild amount of ascites in the right upper (more content not included)... Normal [facility] Hep B Core Ab,Totalon 2020 Hep B Core Ab,Total Negative Normal Negative [facility] Comment on above: Performed By: #### H FP, BMP, HBSAG, PT, CBC, FERR ####[address] [phone]#### AHBCOT, SMTHS, CERULO, AHAVG, AHBSQ, AHCV1B, ANAS, MITOS, AFP, IGG ####[facility] [place], [place] [phone]#### LKM ####[address] [phone] Hep C Ab IA w/Confon 10-11-2 021 Hepatitis C Ab IA Negative Normal Negative [facility] Comment on above: Performed By: #### H FP, BMP, HBSAG, PT, CBC, FERR ####[phone]#### AHBCOT, SMTHS, CERULO, AHAVG, AHBSQ, AHCV1B, ANAS, MITOS, AFP, IGG ####[facility] [place] [phone]#### LKM ####[facility] [address] [place], [place] [phone] HepB SurfaceAb,Quanton 08-27 HepB SurfaceAb,Quant <8.00 Normal <8.00 [facility] Comment on above: Result Comment: NEGA TIVE Performed By: #### H FP, BMP, HBSAG, PT, CBC, FERR ####[place] [phone]#### AHBCOT, SMTHS, CERULO, AHAVG, AHBSQ, AHCV1B, ANAS, MITOS, AFP, IGG ####[place] [id number] [place] [phone]#### LKM ####[facility] [address] [place], [place] [phone] Hepatic Functn Panelon 08-27 Albumin [Mass/Vol] 4.1 g/dL Normal 3.5-5.0 [facility] Comment on above: Performed By: #### H FP, BMP, HBSAG, PT, CBC, FERR #### [place] [address] #### AHBCOT, SMTHS, CERULO, AHAVG, AHBSQ, AHCV1B, ANAS, MITOS, AFP, IGG #### [facility] [address] [place] [phone] #### LKM #### [facility] [address] [place] [address] ALP [Catalytic activity/Vol] 60 U/L Normal 34-123 [facility] Comment on above: Performed By: #### H FP, BMP, HBSAG, PT, CBC, FERR #### [place] [phone] #### AHBCOT, SMTHS, CERULO, AHAVG, AHBSQ, AHCV1B, ANAS, MITOS, AFP, IGG #### [place] [phone] #### LKM #### [facility] [address] [place] [phone] ALT [Catalytic activity/Vol] 28 U/L Normal 0-45 [facility] Comment on above: Performed By: #### H FP, BMP, HBSAG, PT, CBC, FERR #### [place] [phone] #### AHBCOT, SMTHS, CERULO, AHAVG, AHBSQ, AHCV1B, ANAS, MITOS, AFP, IGG #### [place] [phone] #### LKM #### [facility] [address] [place] [address] AST [Catalytic activity/Vol] 38 U/L Normal 7-40 [facility] Comment on above: Performed By: #### H FP, BMP, HBSAG, PT, CBC, FERR #### [place] [phone] #### AHBCOT, SMTHS, CERULO, AHAVG, AHBSQ, AHCV1B, ANAS, MITOS, AFP, IGG #### [place] [phone] #### LKM #### [facility] [address] [place] [address] Bilirubin [Mass/Vol] 1.1 mg/dL Normal 0.2-1.3 [facility] Comment on above: Performed By: #### H FP, BMP, HBSAG, PT, CBC, FERR #### [place] [phone] #### AHBCOT, SMTHS, CERULO, AHAVG, AHBSQ, AHCV1B, ANAS, MITOS, AFP, IGG #### [place] [phone] #### LKM #### [place] [address] Bilirubin,Conjugate d 0.3 mg/dL High <0.2 [facility] Comment on above: Performed By: #### H FP, BMP, HBSAG, PT, CBC, FERR #### [place] [phone] #### AHBCOT, SMTHS, CERULO, AHAVG, AHBSQ, AHCV1B, ANAS, MITOS, AFP, IGG #### [place] [phone] #### LKM #### [place] [address] Protein [Mass/Vol] 7.1 g/dL Normal 6.0-8.4 [facility] Comment on above: Performed By: #### H FP, BMP, HBSAG, PT, CBC, FERR #### [place] [phone] #### AHBCOT, SMTHS, CERULO, AHAVG, AHBSQ, AHCV1B, ANAS, MITOS, AFP, IGG #### [place] [phone] #### LKM #### [facility] [address] [place] [address] Hepatitis A Ab IgGon Hepatitis A Ab IgG Negative Normal Negative [facility] Comment on above: Result Comment: No s erological evidence of past exposure to Hepatitis A virus or hepatitis A vaccination. Should recent infection be suspected, repeat testing is suggested 3-4 weeks after this draw. Performed By: #### H FP, BMP, HBSAG, PT, CBC, FERR ####[place] [phone]#### AHBCOT, SMTHS, CERULO, AHAVG, AHBSQ, AHCV1B, ANAS, MITOS, AFP, IGG ####[facility] [place], [place] [phone]#### LKM ####[facility] [address] [place], [place] [phone] Hepatitis B Surf. Agon 08-27 Hepatitis B Surf. Ag Negative Normal Negative [facility] Comment on above: Performed By: #### H FP, BMP, HBSAG, PT, CBC, FERR #### [place] [phone] #### AHBCOT, SMTHS, CERULO, AHAVG, AHBSQ, AHCV1B, ANAS, MITOS, AFP, IGG #### [facility] [address] [place] [phone] #### LKM #### [facility] [address] [place] [address] IgGon 08-27-2021 IgG [Mass/Vol] 996 mg/dL Normal 700-1600 [facility] Comment on above: Performed By: #### H FP, BMP, HBSAG, PT, CBC, FERR ####[phone]#### AHBCOT, SMTHS, CERULO, AHAVG, AHBSQ, AHCV1B, ANAS, MITOS, AFP, IGG ####[address] [phone]#### LKM ####[address] [phone] Liver-Kid Micro Abson 2020 Liver-Kid Micro Abs <1:20 Normal <1:20 [facility] Comment on above: Result Comment: (NOT E) INTERPRETIVE INFORMATION: Xvbql-Sazzxr-Hzvywjaaw Abs, IgG Liver-Kidney Microsome IgG antibody (anti-LKM), as detected by indirect immunofluorescent antibody (IFA) techniques, may be observed in patients with autoimmune hepatitis type 2 (AIH-2), AIH-2 associated with autoimmune ppiiwmmwwjflzvabkj-aaavnswskbs-gsxqjwwxyt dystrophy (APECED), viral hepatitis C or D, and some forms of drug-induced hepatitis. This IFA does not differentiate among the four types of LKM antibodies (LKM-1, LKM-2, LKM-3, and a fourth type that recognizes CY and CY antigens). Of these, anti-LKM-1 (cytochrome [id number]) IgG antibodies are considered specific for AIH-2. This test was developed and its performance characteristics determined by [facility]. It has not been cleared or approved by the US Food and Drug Administration. This test was performed in a CLIA certified laboratory and is intended for clinical purposes. Performed By: [facility] [address] [place] [address] Health Safety Specialist: Aleida Green MD Performed By: #### H FP, BMP, HBSAG, PT, CBC, FERR ####[place] [id number] [place], [place] [phone]#### AHBCOT, SMTHS, CERULO, AHAVG, AHBSQ, AHCV1B, ANAS, MITOS, AFP, IGG ####[place] [id number] [place], [place] [phone]#### LKM ####[address] [phone] Mitochondrial Ab Scron 08-27 Mitochondrial Ab Scr Negative Normal Negative [facility] Comment on above: Result Comment: Norm al range : negative at a 1:20 serum dilution. Performed By: #### H FP, BMP, HBSAG, PT, CBC, FERR ####[facility] [place], [place] [phone]#### AHBCOT, SMTHS, CERULO, AHAVG, AHBSQ, AHCV1B, ANAS, MITOS, AFP, IGG ####[facility] [place], [place] [phone]#### LKM ####[facility] [place], [place] [phone] Protimeon 08-27-2021 PT INR 1.3 Normal 0.9-1.3 [facility] Comment on above: Result Comment: Opal min K Antagonist (VKA) Therapeutic Range: INR 2 to 3 (Target INR of 2.5) Note: For patients treated with VKA drugs, such as warfarin, the [place] [employer] 2012 Guideline recommends a therapeutic INR range of 2 to 3 (target INR of 2.5). This recommendation includes high-risk patients with antiphospholipid syndrome with previous arterial or venous thromboembolism, current-generation mechanical or bioprosthetic aortic heart valve replacement. Note: Patients with mechanical aortic valve replacement and additional risk factors for thromboembolic events (atrial fibrillation, previous thromboembolism, LV dysfunction, hypercoagulable conditions) or an older generation mechanical AVR (i.e., ball in-Cage) or any mechanical MVR should have a INR therapeutic range of 2.5 to 3.5 (target INR of 3). Ruthann ORDONEZ, et al. Chest 2012, 141:7S-47S Juan RA, et al. JAC 2017, 70: 252-289 Performed By: #### H FP, BMP, HBSAG, PT, CBC, FERR #### [facility] [address] [place] [address] #### AHBCOT, SMTHS, CERULO, AHAVG, AHBSQ, AHCV1B, ANAS, MITOS, AFP, IGG #### [facility] [address] [place] [phone] #### LKM #### [facility] [address] [place], [place] [phone] PT Sec 13.7 sec High 9.7-13.0 [facility] Comment on above: Performed By: #### H FP, BMP, HBSAG, PT, CBC, FERR #### [facility] [address] [place] [address] #### AHBCOT, SMTHS, CERULO, AHAVG, AHBSQ, AHCV1B, ANAS, MITOS, AFP, IGG #### [facility] [address] [place] [address] #### LKM #### [facility] [address] [place] [phone] Smooth Muscle Ab Scron 08-27 Smooth Muscle Ab Scr Negative Normal Negative [facility] Comment on above: Result Comment: Norm al range : negative at a 1:20 serum dilution. Performed By: #### H FP, BMP, HBSAG, PT, CBC, FERR ####[facility] [place] [phone]#### AHBCOT, SMTHS, CERULO, AHAVG, AHBSQ, AHCV1B, ANAS, MITOS, AFP, IGG ####[facility] [place], [place] [phone]#### LKM ####[facility] [address] [place], [place] [phone] COVID Quick Testingon 2020 Result Negative [email or web address] Other CNOVon 08-10-2021 CNOV Office Visit (GENSS ) RADHA HINES ([id number]) 1990 F Date Time Provider Department 08/10/21 10:40 AM ULICES GRAYSON During your visit today, we recorded the following information about you: Temperature Pulse Respiration Blood pressure 97.3 degrees 99/minute 16/minute 119/64 Weight Height 64.8 kg 1.575 m Ulices Grayson MD 08/10/2021 5:00 PM Signed Assessment NEW LIVER CONSULT PATIENT NAME: Radha Hines REASON FOR CONSULT: RUQ pain REQUESTING PHYSICIAN: Dr. Rodney Castañeda DATE of SERVICE: 08/02/2021 TIME of SERVICE: 9:05 AM PCP: Rodney Castañeda Jr, DO Chief Complaint: Liver mass HPI: Radha Hines is a very pleasant 31 year old female, primary care physician Rodney Castañeda Jr, DO, referred to me by Dr. Castañeda right upper quadrant abdominal pain. Patient was recently worked up for several issues including abdominal pain, ascites, and portal hypertension and was diagnosed with alcoholic liver cirrhosis with portal hypertension. 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 Related to her right upper quadrant pain she underwent imaging including an ultrasound and an HIDA scan and is being subsequently referred to me. She used to drink approximately 12 beers a day and had done so for several years, she still continues to smoke half a pack of cigarettes per day, and has smoked for 13 years. From a health standpoint apart from the alcohol use, she does not have any severe or significant medical comorbidities. She has had an appendectomy in the past. Her social history and review of systems is otherwise noncontributory. She works for [employer]. Patient presented to [facility] at beginning of May for RUE ecchymosis. She was noted to have elevated LFTs and advised to stop drinking alcohol. She established care with PCP Elen Deshpande MD who instructed her to go to [facility] ER for jaundice and RUQ pain. Upon admit to [facility] on 06/08/2021, labs revealed a significant elevation of LFTs and low albumin. CT Abdomen consistent with liver cirrhosis, portal hypertension, moderate amount of ascites and gallbladder wall thickening. Dr. Castañeda treated with antibiotics and referring for cholecystectomy and continued liver management. Calculated from most recent labs 2021: Child Jose B - 8pts MELD 11 History of: Abdominal pain:Yes Nausea/Vomitting:No Hematemesis: No Bleeding per rectum:No Loss of appetite:No Diarrhea:No Jaundice:Yes Pruritis:No Pale colored stools: No H/O Cholangitis:No Anemia: No Weight loss:No H/O inflammatory bowel disease:No H/O primary sclerosing cholangitis:No H/O blood transfusion or trauma: No H/O IVDU :No H/O Hepatitis:No H/O Cirrhosis:Yes Family history of pancreas/liver/biliar y cancer:No PAST MEDICAL HISTORY: No past medical history on file. PAST SURGICAL HISTORY: No past surgical history on file. FAMILY HISTORY: No family history on file. SOCIAL HISTORY: Social History Tobacco Use - Smoking status: Not on file Substance Use Topics - Alcohol use: Not on file - Drug use: Not on file COMPLETE REVIEW OF SYSTEMS Constitutional--Negat ping for fevers, chills, fatigue. No unintentional weight loss Cardiovascular--Negat ping for orthopnea, PND Gastrointestinal--See HPI Pulmonary--Negative for intermittent dyspnea cough or hemoptysis : No history of dysuria, frequency or incontinence A 10 point review of systems was otherwise negative PHYSICAL EXAMINATION: BP 119/64 Pulse 99 Temp 36.3 ?C (97.3 ?F) (Temporal) Resp 16 Ht 157.5 cm (5' 2 ) Wt 64.8 kg (142 lb 12.8 oz) SpO2 97% BMI 26.12 kg/m? General appearance: Well appearing, alert, in no acute distress, well-hydrated, well nourished. Psych: Appropriate affect, alert and oriented to person, place and time Skin: Skin color, texture, turgor normal, no suspicious rashes or lesions Head: Normocephalic, no masses, lesions, tenderness or abnormalities Eyes: Anicteric sclera. Pupils are equally round. Extraocular movements are intact. Oropharynx: Lips, mucosa, and tongue normal, teeth and gums normal, oropharynx normal Neck: Supple, no adenopathy; thyroid symmetric, normal size Abdomen: Abdomen soft, non-tender. No masses, organomegaly Extremities: No deformities, edema, skin discoloration. Good capillary refill. Musculoskeletal: Muscular strength intact, No joint swelling, deformity, or tenderness Peripheral pulses: Normal radial pulse Neuro: Gait normal. Sensation grossly intact. IMAGING: [facility]) 06/08/2021 CT A/P (Images Uploaded/Report Scanned) 06/11/2021 MRIAbdomen (Images Uploaded/Report Scanned) 06/08/2021 US RUQ- cirrhotic liver, ascites, and gallbladder wall thickening; no 07/06/2021 HIDA- normal LABS (more content not included)... Normal [facility] 2021 CNPN Telephone ([facility]) KAJALRADHA ([id number]) 1990 F Date Time Provider Department 07/24/21 ULICES GRAYSON [facility] During your visit today, we recorded the following information about you: Susan Hawley RN 2021 3:07 PM Signed Call to patient to evaluate reason for consult with Dr. Grayson and request records for review. Received . Left detailed message. Call to Dr. Rodney Castañeda (referrig physician) for records. Received . Left detailed message. Fax request for records sent, as well to [phone] Susan Hawley RN 2021 4:07 PM Signed Received return call from patient. Referral from Dr. Rodney Castañeda for transplant?? Faxed request for records and imaging reports to Dr. Castañeda to verify reason for consult. PCP: Shaikh Jeramy MD [facility] [address], [place] ph [phone] Freida Deluca [facility] 07/25/2021 10:[address] Jeramy Zhao's nurse, called regarding records. Stated records were sent last week-our office did not receive. Confirmed fax number and she will send them over today. Freida Deluca [facility] Susan Hawley RN 07/26/2021 9:07 AM Signed Follow up call to patient. Cancelled her consult today, as our office has not received OSH records. Will call patient to reschedule once records are received and reviewed. Felecia Pelletier 07/27/2021 9:11 AM Signed Received reports from [facility]. CT Abdomen/Pelvis 06/08/2021 US Abdomen 06/08/2021 MRI Abdomen 06/10/2021 NM Hepatobilliary scan 07/06/2021 Reports scanned and imaging downloaded. Please review. Susan Hawley RN 07/30/2021 2:32 PM Signed Hepatobiliary Surgery Consult OSH records received: 30 yr old female who presented to [facility] at beginning of May for RUE ecchymosis. She was noted to have elevated LFTs and advised to stop drinking alcohol. She established care with PCP Elen Deshpande MD who instructed her to go to [facility] ER for jaundice and RUQ pain. Upon admit to [facility] on 06/08/2021, labs revealed a significant elevation of LFTs and low albumin. CT Abdomen consistent with liver cirrhosis, portal hypertension, moderate amount of ascites and gallbladder wall thickening. Dr. Castañeda treated with antibiotics and referring for cholecystectomy and continued liver management. Referral From: Rodney Castañeda MD Reason: ETOH cirrhosis; possible cholecystitis Calculated from most recent labs 2021: Child Jose B - 8pts MELD 11 Received Records From: 06/08/2021 Hospitalist HANDP ([facility]) 06/09/2021 GI Consult Note (Dr. Castañeda) 06/11/2021 Discharge Summary ([facility]) Imaging:[facility]) 06/08/2021 CT A/P (Images Uploaded/Report Scanned) 06/11/2021 MRIAbdomen (Images Uploaded/Report Scanned) 06/08/2021 US RUQ- cirrhotic liver, ascites, and gallbladder wall thickening; no 07/06/2021 HIDA- normal Labs: See scanned lab reports Felecia Pelletier 07/31/2021 8:52 AM Signed First available with permission from Dr. Cedillo would be 08/27/2021 then he is out for 2 weeks starting the 10 of September. Felecia Pelletier 07/31/2021 3:42 PM Signed Patient is scheduled on 08/10/2021 in [place] to see Dr. Grayson. On 08/27/2021 she is scheduled to see Dr. Cedillo at [facility]. She is aware of both appointments. 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 - Other [3602] Consult [173] Problem List As Of Date: 2021 (None) Encounter Status:Closed by SUSAN HAWLEY RN on 08/01/21 Normal [facility] Vital Signs Date Time Vital Sign Value Performing Clinician Facility 08-08-2023 10:33-0400 Diastolic blood pressure 59 mm[Hg] MD Shaikh Deshpande Work Phone: [facility] 08-08-2023 10:33-0400 Heart rate 71 /min MD Shaikh Deshpande Work Phone: [facility] 08-08-2023 10:33-0400 Respiratory rate 16 /min MD Shaikh Deshpande Work Phone: [facility] 08-08-2023 10:33-0400 SaO2% (BldA) [Mass fraction] 100 % MD Shaikh Deshpande Work Phone: [facility] 08-08-2023 10:33-0400 Systolic blood pressure 93 mm[Hg] MD Shaikh Deshpande Work Phone: [facility] 08-08-2023 08:33-0400 Body height 157.48 cm MD Shaikh Deshpande Work Phone: [facility] 08-08-2023 08:33-0400 Body temperature 97.9 [degF] MD Shaikh Deshpande Work Phone: [facility] 08-08-2023 08:33-0400 Body weight 59.42 kg MD Shaikh Deshpande Work Phone: [facility] 06-30-2023 15:30-0400 Body height 157.48 cm Imad Asaad Other [email or web address] Other 06-30-2023 15:30-0400 Body mass index (BMI) [Ratio] 23.77 kg/m2 Imad Asaad Other [email or web address] Other 06-30-2023 15:30-0400 Body weight 58.97 kg Imad Asaad Other [email or web address] Other 06-30-2023 15:30-0400 Diastolic blood pressure 70 mm[Hg] Imad Asaad Other [email or web address] Other 06-30-2023 15:30-0400 Systolic blood pressure 104 mm[Hg] Imad Asaad Other [email or web address] Other 06-16-2023 16:00-0400 Body height 157.48 cm Ann Perera Other [email or web address] Other 06-16-2023 16:00-0400 Body mass index (BMI) [Ratio] 23.99 kg/m2 Ann Perera Other [email or web address] Other 06-16-2023 16:00-0400 Body temperature 98.1 [degF] Ann Perera Other [email or web address] Other 06-16-2023 16:00-0400 Body weight 59.51 kg Ann Perera Other [email or web address] Other 06-16-2023 16:00-0400 Diastolic blood pressure 60 mm[Hg] Ann Perera Other [email or web address] Other 06-16-2023 16:00-0400 Respiratory rate 18 /min Ann Perera Other [email or web address] Other 06-16-2023 16:00-0400 SaO2% (BldA) [Mass fraction] 100 % Ann Constantinoley Other [email or web address] Other 06-16-2023 16:00-0400 Systolic blood pressure 101 mm[Hg] Ann Constantinoley Other [email or web address] Other 01-18-2023 09:55-0500 Body height 157.48 cm Charlene Graciela Other [email or web address] Other 01-18-2023 09:55-0500 Body mass index (BMI) [Ratio] 25.97 kg/m2 Charlene Graciela Other [email or web address] Other 01-18-2023 09:55-0500 Body temperature 99.8 [degF] Charlene Graciela Other [email or web address] Other 01-18-2023 09:55-0500 Body weight 64.41 kg Charlene Graciela Other [email or web address] Other 01-18-2023 09:55-0500 Diastolic blood pressure 68 mm[Hg] Charlene Graciela Other [email or web address] Other 01-18-2023 09:55-0500 SaO2% (BldA) [Mass fraction] 99 % Charlene Graciela Other [email or web address] Other 01-18-2023 09:55-0500 Systolic blood pressure 108 mm[Hg] Charlene Graciela Other [email or web address] Other 10-24-2022 18:10-0500 Body height 157.48 cm Sydnee Dilan Other [email or web address] Other 10-24-2022 18:10-0500 Body mass index (BMI) [Ratio] 23.77 kg/m2 Sydnee Kong Other [email or web address] Other 10-24-2022 18:10-0500 Body temperature 97.8 [degF] Sydnee Kong Other [email or web address] Other 10-24-2022 18:10-0500 Body weight 58.97 kg Sydnee Kong Other [email or web address] Other 10-24-2022 18:10-0500 Diastolic blood pressure 71 mm[Hg] Sydnee Kong Other [email or web address] Other 10-24-2022 18:10-0500 Respiratory rate 16 /min Sydnee Kong Other [email or web address] Other 10-24-2022 18:10-0500 SaO2% (BldA) [Mass fraction] 100 % Sydnee Kong Other [email or web address] Other 10-24-2022 18:10-0500 Systolic blood pressure 116 mm[Hg] Sydnee Kong Other [email or web address] Other 04-16-2022 17:00-0400 Body height 157.48 cm Rodney Castañeda Other [email or web address] Other 04-16-2022 17:00-0400 Body mass index (BMI) [Ratio] 25.6 kg/m2 Rodney Castañeda Other [email or web address] Other 04-16-2022 17:00-0400 Body weight 63.5 kg Rodney Castañeda Other [email or web address] Other 08-21-2021 17:00-0400 Body height 157.48 cm Rodney Castañeda Other [email or web address] Other 08-21-2021 17:00-0400 Body mass index (BMI) [Ratio] 25.6 kg/m2 Rondey Castañeda Other [email or web address] Other 08-21-2021 17:00-0400 Body weight 63.5 kg Rodney Castañeda Other [email or web address] Other 08-15-2021 15:30-0400 Body height 157.48 cm Charlene Owens Other [email or web address] Other 08-15-2021 15:30-0400 Body mass index (BMI) [Ratio] 25.6 kg/m2 Charlene Graciela Other [email or web address] Other 08-15-2021 15:30-0400 Body temperature 99 [degF] Charlene Owens Other [email or web address] Other 08-15-2021 15:30-0400 Body weight 63.5 kg Charlene Graciela Other [email or web address] Other 08-15-2021 15:30-0400 Respiratory rate 18 /min Charlene Owens Other [email or web address] Other 08-15-2021 15:30-0400 SaO2% (BldA) [Mass fraction] 98 % Charlene Owens Other [email or web address] Other Encounters Encounter Date Encounter Type Care Provider Facility Start: 10-23-2023 End: 10-23-2023 ambulatory RAZA RAUSCH Not Available Start: 09-05-2023 End: 09-05-2023 ambulatory Imad Asaad Other [email or web address] Other Start: 09-05-2023 Telephone encounter Imad Asaad [facility] Start: 08-08-2023 End: 08-08-2023 ambulatory Imad Asaad Facility:[facility] Start: 08-08-2023 End: 08-08-2023 Admission to same day surgery center MD Shaikh Deshpande Work Phone: [facility] Work Phone: Start: 08-08-2023 End: 08-08-2023 ambulatory MD Shaikh Deshpande Work Phone: [facility] Work Phone: Start: 07-30-2023 End: 07-30-2023 ambulatory Imad Asaad Other [email or web address] Other Start: 07-30-2023 Telephone encounter Imad Asaad [facility] Start: 06-30-2023 End: 06-30-2023 ambulatory Imad Asaad Other [email or web address] Other Start: 06-30-2023 Office outpatient visit 25 minutes Imad Asaad [facility] Start: 06-16-2023 End: 06-16-2023 Patient encounter procedure MD Shaikh Deshpande Work Phone: [facility] Work Phone: Start: 06-16-2023 End: 06-16-2023 ambulatory Shaikh Jeramy [email or web address] Other Start: 06-16-2023 Office outpatient visit 15 minutes Ann Perera [facility] Start: 04-15-2023 End: 04-16-2023 ambulatory CARNEY H FAWWAD Facility:[facility] Start: 02-14-2023 End: 02-15-[address] RODNEY JOHN Facility:[facility] Start: 01-18-2023 End: 01-18-2023 ambulatory Charlene Owens Other [email or web address] Other Start: 01-18-2023 Office outpatient visit 15 minutes Charlene Owens [facility] Start: 01-06-2023 End: 01-07-[address] ASHLEY HOFFMAN . Facility:[facility] Start: 11-25-2022 End: 11-26-2022 ambulatory CARNEY H FAWGUID Facility:[facility] Start: 11-21-2022 End: 11-21-[address] ASHLEY HOFFMAN . Facility:[facility] Start: 10-24-2022 End: 10-24-2022 ambulatory Sydnee Kong Other [email or web address] Other Start: 10-24-2022 Office outpatient visit 25 minutes Sydnee Kong [facility] Start: 10-15-2022 End: 10-16-2022 ambulatory CARNEY H FAWWAD Facility:[facility] Start: 08-13-2022 End: 08-14-2022 ambulatory CARNEY H FAWWAD Facility:[facility] Start: 05-08-2022 End: 05-08-2022 ambulatory Rodney Castañeda Other [email or web address] Other Start: 05-08-2022 Telephone encounter Rodney Castañeda [facility] Start: 04-23-2022 End: 04-23-2022 ambulatory Rodney Castañeda Other [email or web address] Other Start: 04-23-2022 Telephone encounter Rodney Castañeda [facility] Start: 04-16-2022 End: 04-16-2022 ambulatory Rodney Castañeda Other [email or web address] Other Start: 04-16-2022 Office outpatient visit 25 minutes Rodney Castañeda [facility] Start: 03-04-2022 End: 03-04-2022 ambulatory Rodney Castañeda Other [email or web address] Other Start: 03-04-2022 Telephone encounter Rodney Castañeda [facility] Start: 12-24-2021 End: 12-24-2021 ambulatory Rodney Castañeda Other [email or web address] Other Start: 12-24-2021 Telephone encounter Rodney Castañeda [facility] Start: 12-14-2021 End: 12-14-2021 ambulatory Rodney Castañeda Other [email or web address] Other Start: 12-14-2021 Telephone encounter Rodney Garry [facility] Start: 08-21-2021 Office outpatient visit 15 minutes Rodney Garry [facility] Start: 08-15-2021 Office outpatient visit 15 minutes Charlene Owens [facility] Procedures Date Procedure Procedure Detail Performing Clinician Start: 08-08-2023 Esophagogastroduodenoscopy MD Shaikh Deshpande Work Phone: Start: 06-16-2023 X-ray of right foot MD Shaikh Deshpande Work Phone: Plan of Treatment Date Care Activity Detail Author Start: 08-08-2023 [facility] Patient Education Esophageal Varices (DC) [facility] Work Phone: Immunizations Immunization Date Immunization Notes Care Provider Fa evaty 01-19-2020 Rocephin 500 mg Charlene reynolds Other [email or web address] Other Payers Date Payer Category Payer Self-pay [id number] 1990 Unknown [id number] 2.16.84 [id number] 1990 Unknown [id number] 2.16.84 [id number] 1990 Unknown [id number] 2.16.84 [id number] 1990 Unknown [id number] 2.16.84 [id number] 1990 Unknown [id number] 2.16.84 [id number] 1990 Unknown [id number] 2.16.84 [id number] 1990 Unknown [id number] 2.16.84 [id number] 1990 Unknown [id number] 2.16.840 .[id number] 1959 Unknown [id number] 2.16. [id number] 1959 Unknown [id number] 2.16.8 [id number] Unknown [id number] 2.16.8 [id number] Unknown [id number] 2.16.8 [id number] Social History Date Type Detail Facility Unknown if ever smoked [email or web address] Other Sex Assigned At Sex Assigned At Bir th [email or web address] Other Start: 08-08-2023 Tobacco smoking status NHIS Smoker (finding) [facility] Start: 1990 Sex Assigned At Female F [facility] Goals Date Patient Goal Desired Activity /State Clinical Notes 08-10-2021 to 08-08-2023 Note Date & Type Note Facility 08-08-2023 Procedure note [facility] 06-30-2023 Evaluation note Encounter Date Diagnosis Assessment Notes 14 Aug, 2023 Alcoholic cirrhosis of liver with ascites (ICD-10 - K70.31) 14 Jun, 2023 Right upper quadrant abdominal pain (ICD-10 - R10.11) Jun, Other ascites (ICD-10 - R18.8) [email or web address] Other 07-31-2023 Evaluation note* Encounter Date Diagnosis Assessment Notes Treatment Notes Treatment Clinical Notes May, Right foot pain (ICD-10 - M79.671) Discussed with patient no acute fracture or dislocation. Discussed likely sprain to foot. Advised to take Aleve twice daily x7 to 10 days. Wear supportive hard soled shoes. Elevation and ice encouraged. Follow-up with podiatry as scheduled. 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 Advised patient if she is not having gradual improvement by the time she sees podiatry in 10 days, may want to consider FMLA and temporary time off of work to allow area to heal. 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 This is the area that she feels is larger on the right foot compared to the left foot. [email or web address] Other 03-04-2023 Evaluation note* Encounter Date Diagnosis Assessment Notes Treatment Notes Treatment Clinical Notes Jan, Sore throat (ICD-10 - J02.9) Jan, Viral upper respiratory infection (ICD-10 - J06.9) Viral upper respiratory infection: adult home care material was printed Drink plenty fluids, get plenty of rest. Take the Medrol Dosepak as prescribed until gone. Take ibuprofen as needed for pain. Follow-up with your family physician if no improvement in 2 to 3 days. Jan, Communicable disease contact (ICD-10 - Z20.9) [email or web address] Other 12-08-2022 Evaluation note* Encounter Date Diagnosis Assessment Notes Treatment Notes Treatment Clinical Notes Oct, Sore throat (ICD-10 - J02.9) Oct, Acute otitis media with effusion of both ears (ICD-10 - H65.193) Advised patient that rapid Strep test was negative. Advised that antibiotic prescribed for ear infeciton will also cover for Strep. Advised to take antibiotics as directed, complete entire course even if feeling better. Use rx Flonase and Cetirizine as directed. Supportive care, Tylenol/Motrin as needed for aches/fever, warm compress to affected ear, push fluids and rest. Follow up with PCP if symptoms do not improve in the next 2-3 days. Immediate eval for severe ear pain, severe headache, neck pain/stiffness, pain, erythema, or redness behind the ear, fever, N/V, hearing loss, fever, or any other new or concerning symptoms. Patient verbalizes understanding and is agreeable to treatment plan [email or web address] Other 06-22-2022 Evaluation note* Encounter Date Diagnosis Assessment Notes Treatment Notes Treatment Clinical Notes Apr, Abdominal pain (ICD-10 - R10.9) [email or web address] Other 05-31-2022 Evaluation note* Encounter Date Diagnosis Assessment Notes Treatment Notes Treatment Clinical Notes March, Alcoholic cirrhosis of liver with ascites (ICD-10 - K70.31) March, Abnormal ultrasound (ICD-10 - R93.89) CT ABD/ PELVIS W/ CONTRAST March, Abdominal pain (ICD-10 - R10.9) START TRIAL OF LEVSIN S/L BID OBTAIN LABS AND LIVER US FROM [facility] CT ABD/ PELVIS W/ AND W/0 CONTRAST TRIPHASIC ATTN LIVER [email or web address] Other 02-07-2022 Evaluation note* Encounter Date Diagnosis Assessment Notes Treatment Notes Treatment Clinical Notes Dec, Alcoholic cirrhosis of liver with ascites (ICD-10 - K70.31) [email or web address] Other 01-28-2022 Evaluation note* Encounter Date Diagnosis Assessment Notes Treatment Notes Treatment Clinical Notes Nov, Alcoholic cirrhosis of liver with ascites (ICD-10 - K70.31) [email or web address] Other 01-10-2022 NoteHNO ID: [id number] Author: Vicky Cedillo MD Service: ? Author Type: Physician Type: Progress Notes Filed: 11/26/2021 3:10 PM Note Text: VIRTUAL VISIT FOLLOW UP I had a virtual visit with Ms. Hines today for follow up of liver cirrhosis. UPDATED HISTORY: Radha Hines is a 31 year old female with liver cirrhosis complicated by ascites and portal hypertension who is referred to the Liver clinic for management Patient stopped alcohol on 05/31/2021. Before that she used drink 12 beers for 10 years. Patient has one tattoo, denied IVD use, intranasal cocaine or hx of blood transfusion prior to 1989. Denied family history of liver disease. Patient denies jaundice, Ascites , confusion/ hepatic encephalopathy, reversal of day/night sleep patterns, hematemesis or melena. PAST MEDICAL HISTORY Diagnosis Date - Alcoholic cirrhosis of liver with ascites (HCC) - Liver disease PAST SURGICAL HISTORY Procedure Laterality Date - APPENDECTOMY No family history on file. Social History Tobacco Use - Smoking status: Current Every Day Smoker Packs/day: 0.50 Years: 13.00 Pack years: 6.50 Types: Cigarettes - Smokeless tobacco: Never Used Substance Use Topics - Alcohol use: Yes Comment: Spber now. Was drinking 12 pack every day - Drug use: Not on file Current Outpatient Medications Medication Sig Dispense Refill - ALPRAZolam (XANAX) 0.25 mg tablet Alprazolam Active 0.25 MG PO As Directed July 11, 2021 11:07am - dicyclomine (BENTYL) 20 mg tablet TAKE 1 TABLET BY MOUTH 4 TIMES A DAY FOR 30 DAYS (Patient not taking: TAKE 1 TABLET BY MOUTH 4 TIMES A DAY FOR 30 DAYS) - folic acid 1 mg tablet Take 1 mg by mouth once daily. - ibuprofen (MOTRIN) 800 mg tablet Take 800 mg by mouth. - levoFLOXacin (LEVAQUIN) 750 mg tablet TAKE 1 TABLET BY MOUTH EVERY DAY FOR 5 DAYS (Patient not taking: TAKE 1 TABLET BY MOUTH EVERY DAY FOR 5 DAYS) - nabumetone (RELAFEN) 500 mg tablet Take 500 mg by mouth three times daily. (Patient not taking: Reported on 08/10/2021 ) - nicotine (NICODERM) 21 mg/24 hr APPLY 1 PATCH TO THE SKIN EVERY 24 HOURS (Patient not taking: APPLY 1 PATCH TO THE SKIN EVERY 24 HOURS) - oxyCODONE IR (ROXICODONE) 5 mg immediate release tablet Oxycodone (Roxicodone) 5 mg tablet Active 2.5 MG PO Daily 7 June 11, 2021 2:50pm - prednisoLONE (PRELONE) 15 mg/5 mL syrup give 13 milliliters by mouth once daily (Patient not taking: give 13 milliliters by mouth once daily) - predniSONE (DELTASONE) 20 mg tablet Prednisone Active 20 MG PO Daily 7 June 11, 2021 2:57pm (Patient not taking: Prednisone Active 20 MG PO Daily 7 June 11, 2021 2:57pm) - spironolactone (ALDACTONE) 25 mg tablet Spironolactone Active 25 MG PO As Directed July 11, 2021 11:07am - thiamine (VITAMIN B1) 100 mg tablet Take 100 mg by mouth once daily. - venlafaxine ER (EFFEXOR XR) 37.5 mg 24 hr capsule Venlafaxine Active 37.5 MG PO Daily at bedtime July 11, 2021 11:07am - VITAMIN B COMPLEX ORAL Vitamin B Complex Active 1 TAB PO Daily June 09, 2021 1:02am No current facility-administered medications for this visit. ALLERGIES Allergen Reactions - Ciprofloxacin Unknown - Penicillins Vomiting - Sulfamethoxazole Other: See Comments - Trimethoprim Other: See Comments REVIEW OF SYSTEMS: PAIN ASSESSMENT: Negative for pain, history of chronic pain, or current treatment for a chronic pain condition. 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 Normal, healthy, cooperative, in no acute distress Able to interact verbally by video conference Psych ? ORIENTATION: normal to time place, person and situation Mood/Affect: AFFECT AND MOOD: Normal Head/Neuro ? Normal size and shape Facial appearance normal Pulmonary ? respiratory effort normal Cardiovascular ? patient describes extremities normal, warm, no cyanosis,no clubbing and no edema Abdominal ? Not performed Skin ? abnormal lesions not visualized Motor ? patient seen sitting with Normal appearing strength and coordination Anorectal exam ? Not Performed REVIEWED ITEMS Last OV 08/27/2021. 06/07/2021 RUQ US-Liver is enlarged measuring 27 cm. There is heterogeneity of the echotexture of the liver along with nodularity of the liver surface suggesting diffuse hepatocellular disease such as cirrhosis. Clinical correlation is suggested. 2. There is thickening of the gallbladder wall which measures 5 mm. Patient had no pain upon scanning over the gallbladder. No stones or sludge was identified. 3. (more content not included)...[facility]10-05-2021 Evaluation note* Encounter Date Diagnosis Assessment Notes Treatment Notes Treatment Clinical Notes Aug, Alcoholic cirrhosis of liver with ascites (ICD-10 - K70.31) Cirrhosis home care material was printed CONTINUE TO AVOID ALCOHOL Aug, Abdominal pain (ICD-10 - R10.9) [email or web address] Other 09-29-2021 Evaluation note* Encounter Date Diagnosis Assessment Notes Treatment Notes Treatment Clinical Notes Jul, Contact with and (suspected) exposure to other viral communicable diseases (ICD-10 - Z20.828) Jul, Viral upper respiratory illness (ICD-10 - J06.9) Viral upper respiratory infection: adult home care material was printed Jul, Other Additional time spent conducting pre-visit phone call, screening for symptoms, instructions on social distancing, application and removal of PPE, and cleaning of examination room, equipment and supplies was preformed. Patient education given for testing methodology and results. Patient care instructions given in writting by [facility] document. [email or web address] Other 09-24-2021 NoteHNO ID: [id number] Author: Ulices Grayson MD Service: ? Author Type: Physician Type: Progress Notes Filed: 08/10/2021 5:00 PM Note Text: Assessment NEW LIVER CONSULT PATIENT NAME: Radha Hines REASON FOR CONSULT: RUQ pain REQUESTING PHYSICIAN: Dr. Rodney Castañeda DATE of SERVICE: 08/02/2021 TIME of SERVICE: 9:05 AM PCP: Rodney Castañeda Jr, DO Chief Complaint: Liver mass HPI: Radha Hines is a very pleasant 31 year old female, primary care physician Rodney Castañeda Jr, DO, referred to me by Dr. Castañeda right upper quadrant abdominal pain. Patient was recently worked up for several issues including abdominal pain, ascites, and portal hypertension and was diagnosed with alcoholic liver cirrhosis with portal hypertension. 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 Related to her right upper quadrant pain she underwent imaging including an ultrasound and an HIDA scan and is being subsequently referred to me. She used to drink approximately 12 beers a day and had done so for several years, she still continues to smoke half a pack of cigarettes per day, and has smoked for 13 years. From a health standpoint apart from the alcohol use, she does not have any severe or significant medical comorbidities. She has had an appendectomy in the past. Her social history and review of systems is otherwise noncontributory. She works for [employer]. Patient presented to [facility] at beginning of May for RUE ecchymosis. She was noted to have elevated LFTs and advised to stop drinking alcohol. She established care with PCP Elen Deshpande MD who instructed her to go to [facility] ER for jaundice and RUQ pain. Upon admit to [facility] on 06/08/2021, labs revealed a significant elevation of LFTs and low albumin. CT Abdomen consistent with liver cirrhosis, portal hypertension, moderate amount of ascites and gallbladder wall thickening. Dr. Castañeda treated with antibiotics and referring for cholecystectomy and continued liver management. Calculated from most recent labs 2021: Child Jose B - 8pts MELD 11 History of: Abdominal pain:Yes Nausea/Vomitting:No Hematemesis: No Bleeding per rectum:No Loss of appetite:No Diarrhea:No Jaundice:Yes Pruritis:No Pale colored stools: No H/O Cholangitis:No Anemia: No Weight loss:No H/O inflammatory bowel disease:No H/O primary sclerosing cholangitis:No H/O blood transfusion or trauma: No H/O IVDU :No H/O Hepatitis:No H/O Cirrhosis:Yes Family history of pancreas/liver/biliary cancer:No PAST MEDICAL HISTORY: No past medical history on file. PAST SURGICAL HISTORY: No past surgical history on file. FAMILY HISTORY: No family history on file. SOCIAL HISTORY: Social History Tobacco Use - Smoking status: Not on file Substance Use Topics - Alcohol use: Not on file - Drug use: Not on file COMPLETE REVIEW OF SYSTEMS Constitutional--Negative for fevers, chills, fatigue. No unintentional weight loss Cardiovascular--Negative for orthopnea, PND Gastrointestinal--See HPI Pulmonary--Negative for intermittent dyspnea cough or hemoptysis : No history of dysuria, frequency or incontinence A 10 point review of systems was otherwise negative PHYSICAL EXAMINATION: BP 119/64 Pulse 99 Temp 36.3 ?C (97.3 ?F) (Temporal) Resp 16 Ht 157.5 cm (5' 2 ) Wt 64.8 kg (142 lb 12.8 oz) SpO2 97% BMI 26.12 kg/m? General appearance: Well appearing, alert, in no acute distress, well-hydrated, well nourished. Psych: Appropriate affect, alert and oriented to person, place and time Skin: Skin color, texture, turgor normal, no suspicious rashes or lesions Head: Normocephalic, no masses, lesions, tenderness or abnormalities Eyes: Anicteric sclera. Pupils are equally round. Extraocular movements are intact. Oropharynx: Lips, mucosa, and tongue normal, teeth and gums normal, oropharynx normal Neck: Supple, no adenopathy; thyroid symmetric, normal size Abdomen: Abdomen soft, non-tender. No masses, organomegaly Extremities: No deformities, edema, skin discoloration. Good capillary refill. Musculoskeletal: Muscular strength intact, No joint swelling, deformity, or tenderness Peripheral pulses: Normal radial pulse Neuro: Gait normal. Sensation grossly intact. IMAGING: [facility]) 06/08/2021 CT A/P (Images Uploaded/Report Scanned) 06/11/2021 MRIAbdomen (Images Uploaded/Report Scanned) 06/08/2021 US RUQ- cirrhotic liver, ascites, and gallbladder wall thickening; no 07/06/2021 HIDA- normal LABS: Nl LFTs IMPRESSION: RUQ pain PLAN: Radha Hines is a very pleasant 31 year old female, primary care physician Rodney Castañeda Jr, DO, referred to me by Dr. Castañeda right upper quadrant abdominal pain. Patient was recently worked up for several issues including abdominal pain, asci (more content not included)...[facility] noteNo InformationNort sfilatino Other Evaluation noteNo assessment information available [facility] Work Phone: History and physical note Author Vicky Cedillo [facility] August 08, 2023 10:00am Note Date/Time August 08, 2023 9:56am [facility] [address] [place] [address] Gastroenterology H&P Signed Patient: Radha Hines MR#: [id number] : 1990 Acct:[id number] Age/Sex: 33 / F Adm Date: 3 Loc: Room: Type: [facility] Attending Dr: Vicky Cedillo MD Copies to: MD Shaikh Jeramy Robertson MD~ Date of Service: 08/08/2023 HISTORY & PHYSICAL: Patient's history with special attention to the cardiovascular, pulmonary systems and the current problem was reviewed with the patient immediately prior to the procedure. Present medications and doses reviewed in the EMR. Allergies and pertinent laboratory tests were also reviewedat this time in the EMR. The physical examination, as below, was then performed. Indication, assessment and HPI: 33-year-old female with liver cirrhosis and portal hypertension here for EGD for esophageal variceal screening PHYSICAL EXAMINATION Mouth and Pharynx : Moist mucus membranes, normal dentition Cardiac: Regular rate, regular rhythm Pulmonary: Clear to auscultation bilaterally, no wheezing Neurological: Alert and oriented x3, no focal deficits noted Abdomen: Abdomen soft, non-tender REVIEW OF SYSTEMS Constitutional: Denies malaise, fevers Cardiovascular: Denies chest pain, palpitations Respiratory: Denies shortness of breath, wheezing Gastrointestinal: Per HPI Genitourinary: Denies dysuria, polyuria Musculoskeletal: Denies joint swelling, joint stiffness Neurological: Denies numbness, tingling Integumentary: Denies rashes, skin lesions Endocrine: Denies fatigue, weight loss Written informed consent obtained from the patient. Risks (including but not limited to perforation, infection, bloating, bleeding, need for emergent surgeryand loss of life), benefits and alternatives explained and questions answered. The patient verbalized understanding. Based on history patient is an appropriate candidate for the procedure. Vicky Cedillo M.D. Documented By: Vicky Cedillo MD 08/08/23 0954 Signed By: <Electronically signed by Vicky Cedillo MD> 08/08/23 1000 [facility] Work Phone: History general Narrative - Reported* Type Description Date Medical History EtOH cirrhosis Medical History anxiety Medical History chronic depression Surgical History appendectomy Surgical History [facility] Hospitalization History see above [email or web address] Other History general Narrative - Reported* Type Description Date Medical History EtOH cirrhosis Medical History anxiety Surgical History appendectomy Surgical History [facility] Hospitalization History see above [email or web address] Other Hospital Discharge instructions Additional Instructions DISCHARGE INSTRUCTIONS FOR UPPER ENDOSCOPY WHAT TO EXPECT: - You may feel full, gassy or cramping after your procedure. In some cases, this may be from a few hours to a day. Walking may help relieve the discomfort. - Your throat may feel sore today from the scope that the doctor passed through your throat to visualize your stomach. Take a throat lozenge or suck on ice to ease the discomfort. - You may notice some streaks of blood in your sputum if the doctor has taken a biopsy. - You should begin to recover from anesthesia within 1 hour of the procedure, however may feel groggy for the next 24 hours. DO's AND DON'Ts: - Call your doctor right away if you have a hard abdomen, severe pain, vomiting or if you cough up large amounts of blood. - Call your doctor if you develop any rashes, hives or difficulty breathing. - If you take 81 mg aspirin for your heart it is safe to resume this medication. - If you take other blood thinner medications your doctor will instruct you when these can safely be resumed. - Do NOT drive for 24 hours. - Do NOT operate machinery such as power tools, lawn mowers, snow blowers, sewing machines, etc. for 24 hours. - Avoid alcoholic beverages and drugs for allergies, nerves, or sleep. - Do NOT stay alone. Do NOT leave your child unattended. - Do NOT make important personal or business decisions or sign any legal documents. - Eat solid foods and drink liquids in smaller amounts than usual until normal appetite returns. If you should experience an upset stomach, liquids high in sugar content (soda, Bridger-Aid, non-acid juices) are recommended. - Do NOT smoke. - Do take it easy today. You need not stay in bed, but avoid strenuous activities such as jogging or working out. FOLLOW UP & RECOMMENDATIONS: -Follow-up in office as scheduled -Notify the doctor if you have any problems. -Follow up with PCP. -Office number [phone]. [facility] Work Phone: Summary Purpose Family History No Family History Records Found Relationship Condition Age at Onset Recorded Date/T jolynn grandparent Malignant neoplasm of breast Unknown grandparent Malignant neoplasm of throat Unknown grandparent Malignant neoplasm of brain Unknown Advance Directives No Advanced Directives Records Found Advance Directive Response Recorded Date/ Time Advance Directives No May 08 2:58pm Chief Complaint and Reason for Visit Chief Complaint M79.671 Cirrhosis Additional Source Comments INFORMATION SOURCE (unrecogn ized section and content) DATE CREATED AUTHOR 02/06/2022 [facility] DATE CREATED AUTHOR AUTHOR'S ORGANIZ ATION 04/25/2023 [facility] DATE CREATED AUTHOR AUTHOR'S ORGANIZ ATION 08/22/2023 [facility] DATE CREATED AUTHOR AUTHOR'S ORGANIZ ATION 10/26/2023 [facility] EPIC REASON FOR VISIT (unrecogniz ed section and content) REFILL#[id number] BLANCA CENTRA CHIL LS, FATIGUE, BODY ACHES, CONGESTIONPATIENT HERE FOR 1 MONTH FOLLOW UPNo InformationLABSRESULTSPATIENT HERE FOR 3 MONTH FOLLOW UP, LIVER US REVIEWEDClinical Acute Illnessstrep testSORE THROATRIGH FOOT, INJURY FROM A FALL, PAIN,PATIENT IS HERE FOR LIVER CIRRHOSISresultsREFERRAL UPDATE Care Teams (unrecognized sec tion and content) Team Status: Active Member Role Status Madison Deshpande MD Primary Care Provider Active Team Status: Inactive Member Role Status Dates Shaikh Jeramy MD Primary Care Provider Active Ann Perera APRN Attending Provider Active Team Status: Inactive Member Role Status Dates Shaikh Jeramy MD Primary Care Provider Active Vicky Cedillo MD Attending Provider Active FOR RECORDS PERTAINING TO PATIENTS WHO ARE OR HAVE BEEN ENROLLED IN A CHEMICAL DEPENDENCY/SUBSTANCEABUSE PROGRAM, SOME INFORMATION MAY BE OMITTED. This clinical summary was aggregated from multiple sources. Caution should be exercised in using it in the provision of clinical care. This summary normalizes information from multiple sources, and as a consequence, information in this document may materially change the coding, format and clinical context of patient data. In addition, data may be omitted in some cases. CLINICAL DECISIONS SHOULD BE BASED ON THE PRIMARY CLINICAL RECORDS. [facility], [facility]. provides no warranty or guarantee of the accuracy or completeness of information in this document.
--- NOTE | 2024-01-03 08:11 | US_ITS ---
[address] [address] Patient Name: ROCIO RDZ MRN: [id number] date: 1990 Sex: F Assigned Patient Location: [place] Current Patient Location: [place] Accession/Order Number: [id number] Exam Date: 01/03/2024 08:15 Report Date: 01/03/2024 09:20 At the request of: NON-STAFF PHYSICIAN Procedure: US right upper quadrant EXAMINATION: US right upper quadrant HISTORY: Alcoholic cirrhosis of liver with ascites K70.31 COMPARISON: Ultrasound right upper quadrant 07/26/2023 TECHNIQUE: Transabdominal evaluation of the right upper quadrant. FINDINGS: LIVER: Nodular margins and slightly heterogeneous echotexture suggestive of cirrhosis. Small varices within hilum. PORTAL VEIN: Duplex Doppler demonstrates normal hepatopetal flow pattern with flow velocity averaging 20 cm/s. GALLBLADDER: No visible gallstones, wall thickening, or pericholecystic free fluid. Negative sonographic Carreon's sign. BILIARY: No abnormal dilation or stones. Common bile duct diameter is within normal limits. PANCREASE: No visible mass, abnormal atrophy, or duct dilation. KIDNEY: No hydronephrosis. No visible mass or stones. Size: 11.0 x 5.4 x 5.4 cm US/US right upper quadrant IMPRESSION: 1. Liver findings and small hilum varices compatible with cirrhosis. No appreciable change. 2. No free fluid. Electronically authenticated by: KYLE BENAVIDES Date: 01/03/2024 09:20
== END 2024-01-03 08:09 | disposition home or self-care (01) ==
LOC: US 08:08
PROVIDERS: PCP Internal Medicine
DX: K70.31 Alcoholic cirrhosis of liver with ascites (principal)
CPT/HCPCS: 76705

== ENCOUNTER 2024-03-24 13:25 | Outpatient (OUT) | payer OTHER, SELFPAY ==
[2024-03-24 13:50] LABS: Basophils Percent Auto 0.7 % (0.2-2.0); Eosinophils Absolute Auto 0.2 10^3/uL (0.0-0.7); Eosinophils Percent Auto 3.7 % (0.9-7.0); Hematocrit 38.9 % (36.0-48.0); Immature Granulocytes Abs Auto 0.01 10^3/uL (0.00-0.03); Immature Granulocytes Pct Auto 0.2 % (0.0-0.5); Lymphocytes Absolute Auto 2.4 10^3/uL (1.2-3.8); Mean Corpuscular HGB Conc 33.4 g/dL (29.9-35.2); Mean Corpuscular Volume 92.6 fL (81.0-99.0); Mean Platelet Volume 9.2 fL (9.5-13.5); Monocytes Absolute Auto 0.3 10^3/uL (0.3-0.8); Monocytes Percent Auto 5.4 % (1.7-12.0); Platelet Count 164 10^3/uL (150-450); Red Cell Distribution Width 13.3 % (11.0-15.0); White Blood Count 5.9 10^3/uL (4.0-11.0)
[2024-03-24 14:07] LABS: Alanine Aminotransferase 27 U/L (14-59); Albumin Globulin Ratio 1.2; Albumin Level 3.8 g/dL (3.4-5.0); Alkaline Phosphatase 41 U/L (46-116); Anion Gap 15.7; Aspartate Amino Transferase 19 U/L (15-37); BUN Creatinine Ratio 11.7; Calcium 9.1 mg/dL (8.5-10.1); Carbon Dioxide 24.6 mmol/L (21.0-32.0); Chloride 104 mmol/L (98-107); Estimated GFR (African America >60 (>=60); Estimated GFR (Non-African Ame >60 (>=60); Globulin 3.2 g/dL; Glucose 112 mg/dL (74-106); Potassium 3.3 mmol/L (3.5-5.1); Sodium 141 mmol/L (136-145)
== END 2024-03-24 13:26 | disposition home or self-care (01) ==
LOC: LAB 13:25
PROVIDERS: PCP Internal Medicine; Visit Provider Internal Medicine
DX: R10.11 Right upper quadrant pain (principal)
CPT/HCPCS: 36415; 80053; 85025

== ENCOUNTER 2024-05-01 10:04 | Outpatient (OUT) | payer OTHER, SELFPAY ==
--- OUTSIDE RECORDS SUMMARY | 2024-05-01 10:06 | XMS_ITS | CCD ---
Author Organization [facility] Care Team Providers Care Paster Supervisor Name Role Phone Rodney Castañeda Unavailable Charlene [...] YASMIN ., DR RAMIREZ Attending Unavailable REQUEST, DR NONE LISTED Primary Care [...] CARNEY H Consulting Unavailable Ann Perera Unavailable Asaad, Imad Unavailable MD Kojo Deshpande Primary Care Provider MIKIE Perera Attending Provider MD Vicky Cedillo Attending Provider Asaad, Imad Admitting Unavailable Shaikh Deshpande Primary Care Unavailable Vicky Cedillo Attending Unavailable Shaikh Deshpande Primary Care Unavailable Ann Perera Attending Unavailable Ann Perera Admitting Unavailable SHAIKH DESHPANDE Attending Unavailable RAZA RAUSCH Attending Unavailable Allergies Allergy Classification Reported Allergen(s) Allergy Type Date of Onset Reaction(s) Facility (15 sources) Penicillin G Drug Allergy 4 vomits [facility] (1 source) Ciprofloxacin Drug Allergy [address] [facility] (1 source) Penicillin Drug Allergy [address] [facility] (3 sources) Penicillins; Translations: [Penicillins] Propensity to adverse reactions 3 [facility] (3 sources) Sulfamethoxazole; Translations: [sulfamethoxazole ] Drug Allergy 3 [facility] (3 sources) Trimethoprim; Translations: [trimethoprim] Drug Allergy 3 [facility] Medications Current Medications Medication Drug Class(es) Dates Sig (Normalized) Sig (Original) cefdinir 300 mg oral capsule (1 source) Cephalosporin Antibacterial Start: 10-24-2022 Cefdinir 300 MG as directed Orally BID for 10 days Oct, Active cetirizine hydrochloride 10 mg oral tablet (1 source) Histamine-1 Receptor Antagonist Start: 10-24-2022 take 1 tablet by mouth every twelve hours Cetirizine HCl 10 MG 1 tablet Orally Twice a day for 14 days Oct, Active dextromethorphan hydrobromide 15 mg / guaiFENesin 400 mg / pseudoephedrine hydrochloride 60 mg oral tablet (1 source) alpha-Adrenergic Agonist, Uncompetitive E-orawtr-M-aspartate Receptor Antagonist, Sigma-1 Agonist Start: 04-16-2024 take 4 tablets by mouth every twenty-four hours Pseudoephedrine- Dm-Guaifenesin (Capmist Dm) 60-15-400 mg tablet Active 1 TAB PO EVERY 4-6 HOURS April 16, 2024 12:00am do not exceed 4 doses per 24 hrs dicyclomine hydrochloride 20 mg oral tablet (5 [...] Active folic acid 1 mg oral tablet (16 sources) Start: 07-11-2021 Folic Acid Active 1 MG PO As Directed July 11, 2021 12:00am Folic Acid Activ e furosemide 40 mg oral tablet (20 sources) Loop Diuretic Start: 04-16-2024 Furosemide Act ping 20 MG PO As Directed April 16, 2024 5:38pm Start: 11-21-2021 take 1 tablet by dawit every twenty-four hours Furosemide 20 MG 1 tablet Orally Once a day for 30 days Nov, Not-Taking Start: 07-11-2021 End: 04-16-2024 Furosemide Discontinued 40 M G PO As Directed July 11, 2021 12:00am April 16, 2024 5:39pm Furosemide Activ e hyoscyamine sulfate 0.125 mg sublingual tablet (4 sources) Start: 04-16-2022 take 1 tablet under the tongue twice daily as needed Hyoscyamine Sulfate SL 0.125 MG 1 tablet under the tongue and allow to dissolve as needed Sublingual TWICE A DAY for 30 days March, Active ofloxacin 3 mg/ml ophthalmic solution (1 source) Quinolone Antimicrobial Start: 04-16-2024 take 1 drop(s) into the eye(s) four times daily Ofloxacin Active 2 DROPS OPHTHALMIC Four times daily 10 April 16, 2024 12:00am to right eye Probiotic (3 sources) Probiotic Active spironolactone 25 mg oral tablet (20 sources) Aldosterone Antagonist Start: 07-11-2021 Spironolactone Active 25 MG PO As Directed July 11, 2021 12:00am take 1 tablet by dawit th every twenty-four hours Spironolactone 50 MG 1 tablet Orally Onc e a day Active Spironolactone A ctive thiamine 100 mg oral tablet (2 sources) Start: 08-08-2023 take 1 tablet by mouth once daily Thiamine Mononitrate (Vit B1) (Vitamin B-1 (Mononitrate)) 100 mg tablet Active 100 MG PO Daily August 08, 2023 12:00am Vitamin B1 (14 sources) Vitamin B1 Activ e zolpidem tartrate 5 mg oral tablet (9 sources) gamma-Aminobuty trupti Acid-ergic Agonist Start: 04-16-2024 take 2.5 mg by mouth once daily Zolpidem Active 2.5 MG PO Daily April 16, 2024 5:39pm Start: 08-08-2023 End: 04-16-2024 take 5 mg by mouth once daily Zolpidem Discontinued 5 MG PO Daily August 08, 2023 12:00am April 16, 2024 5:39pm Ambien PRN Activ e Ambien Active Completed/Discontinued Medications Medication Drug Class(es) Dates Sig (Normalized) Sig (Original) ALPRAZolam 0.25 mg oral tablet (10 sources) Benzodiazepine Start: 07-11-2021 End: 08-08-2023 Alprazolam Discontinued 0.25 MG PO As Directed July 11, 2021 12:00am August 08, 2023 8:40am ALPRAZolam PRN A ctive ALPRAZolam Activ e Cranberry Conc-Ascorbic Acid (2 sources) Non-Standardized Food Allergenic Extract, Non-Standardized Plant Allergenic Extract, Vitamin C Start: 06-09-2021 End: 07-11-2021 take 2 capsules by mouth once daily Cranberry Conc-Ascorbic Acid Discontinued 2 CAP PO Daily June 09, 2021 12:00am July 11, 2021 11:07am Ascorbic Hmmd-Hhhlevwu-Dmb (Emergen-C) 1,000 mg Powder Effervescent In Packet (2 sources) Start: 06-09-2021 End: 04-16-2024 Ascorbic Vdgn-Mqffuqta-Lkn (Emergen-C) 1,000 mg Powder Effervescent In Packet Discontinued 1 EACH PO Daily June 09, 2021 12:00am April 16, 2024 5:38pm Start: 06-09-2021 Ascorbic Acid- Multivit-Min (Emergen-C) 1,000 mg Powder Effervescent In Packet Active 1 EACH PO Daily June 09, 2021 12:00am 24 hr buPROPion hydrochloride 150 mg extended release oral tablet (2 sources) Aminoketone Start: 08-08-2023 End: 08-08-2023 take 150 mg by mouth once daily Bupropion Hcl Discontinued 150 MG PO Daily August 08, 2023 12:00am August 08, 2023 8:41am cefTRIAXone (10 sources) Cephalosporin Antibacterial Start: 01-19-2020 Rocephin 500 mg Jan, 500 mg levoFLOXacin 750 mg oral tablet (2 sources) Quinolone Antimicrobial Start: 06-11-2021 End: 07-11-2021 take 750 mg by mouth once daily Levofloxacin Discontinued 750 MG PO Daily 5 5 June 11, 2021 12:00am July 11, 2021 11:08am loperamide hydrochloride 2 mg oral capsule (2 sources) Opioid Agonist Start: 06-11-2021 End: 06-11-2021 take [...] 24 hr nicotine 0.875 mg/hr transdermal system (2 sources) Cholinergic Nicotinic Agonist Start: 2020 End: 2020 apply 1 dose transdermal route every twenty-four hours Nicotine Discontinued 1 PATCH TRANSDERML Q24H 7 June 11, 2021 12:00am July 11, 2021 11:08am oxyCODONE hydrochloride 5 mg oral tablet (13 sources) Opioid Agonist Start: 2020 End: 2022 Oxycodone (Roxicodone) 5 mg tablet Discontinued 2.5 MG PO Daily 7 5 June 11, 2021 August 08, 2023 8:40am oxyCODONE ER PRN Active oxyCODONE ER Act ping predniSONE 20 mg oral tablet (4 sources) Start: 06-11-2021 End: 08-08-2023 take 20 mg by mouth once daily Prednisone Discontinued 20 MG PO Daily 7 June 11, 2021 12:00am August 08, 2023 8:40am predniSONE Not-T aking Psyllium Husk (Metamucil) 0.4 gram Capsule (2 sources) Start: 06-11-2021 End: 06-11-2021 Psyllium Husk (Metamucil) 0.4 gram Capsule Discontinued 0.4 GM PO Bedtime June 11, 2021 12:00am June 11, 2021 3:47pm rifAXIMin 550 mg oral tablet (7 sources) Rifamycin Antibacterial Start: 11-21-2021 take 1 tablet by mouth every twelve hours Xifaxan 550 MG 1 tablet Orally Twice a day for 30 day(s) Nov, Not-Taking 24 hr venlafaxine 37.5 mg extended release oral capsule (10 sources) Serotonin and Norepinephrine Reuptake Inhibitor Start: [...] Once a day Active Vitamin B Complex (2 sources) Start: 06-09-2021 End: 08-08-2023 take 1 tablet [...] 08-21-2021 Resolved: 04-16-2022 Chronic Biliary tract disease (2 sources) Cholecystitis; Translations: [Cholecystitis, unspecified] 06-09-2021 Episodic Menstrual disorders (8 sources) Irregular menstruation, unspecified; Translations: [Excessive and frequent menstruation with irregular cycle] Onset: 10-15-2022 Chronic Other connective tissue disease (1 source) Pain in right foot Episodic Other diseases of veins and lymphatics (2 sources) Disorder of spleen; Translations: [Varicose veins of other specified sites] 06-08-2021 Episodic Other gastrointestinal disorders (5 sources) Ascites; Translations: [Other ascites] 06-08-2021 Episodic Other gastrointestinal disorders (1 source) Other ascites Episodic Other liver diseases (5 sources) Unspecified cirrhosis of liver; Translations: [UNSPECIFIED CIRRHOSIS OF LIVER] Onset: 04-15-2023 Chronic Other liver diseases (6 sources) Cirrhosis of liver; Translations: [Unspecified cirrhosis [...] Onset: 11-21-2022 Episodic Other upper respiratory infections (11 sources) Acute upper respiratory infection, unspecified; Translations: [Sore throat symptom] Onset: 08-15-2021 Resolved: 08-15-2021 Episodic Otitis media and related conditions (1 source) Other acute nonsuppurative otitis media, bilateral Episodic Peritonitis and intestinal abscess (2 sources) Primary bacterial peritonitis; Translations: [Spontaneous bacterial peritonitis] [...] Test Name Value Interpretation Reference Range Facility No Panel InformationOrdered By: Ann Perera on 04-16-2024 Quick Strep (POC) [facility] HCG ( test) IA.rapi d Ql (U)Ordered By: Imad Asaad on 08-08-2023 HCG ( test) Ql (U) Negative [facility] HCG,Urineon 08-08-2023 Beta HCG ( test) Ql (U) Negative Normal [facility] Comment on above: Result Comment: PERF ORMED BY: [place] [address] PATHOLOGIST [employer] DESIGN ENGINEER SAMANTHA SOTOMAYOR M.D. Performed By: #### U HCG #### [address] XR foot RT min 3V*on 023 XR foot RT min 3V* [place] [address] XRay Report Signed Patient: Radha Hines MR#: [id number] : 1990 Acct:[id number] Age/Sex: 32 / F ADM Date: 06/16/23 Loc: XDUCLY Room: Type: [facility] Attending Dr: Ann Perera APRN Copies to: [...] Ishmael Nelson M.D.06/16/2023 5:39 PM Dictation Location: [place] [address] Transcribed By: [facility] 06/16/231738 Dictated By: Ishmael Nelson II, MD 06/16/231735 Signed By: 06/16/231738 Normal [facility] XR foot RT min 3V* [facility] 10K Other XR foot RT min 3V* [facility] Other XR foot RT min 3V* [address] [place] [address] [employer] Other XR foot RT min 3V* [place] [address] [employer] [facility] Other XR foot RT min 3V* XRay Report [facility] [facility] Other XR foot RT min 3V* Signed [facility] [facility] Other XR foot RT min 3V* Patient: Radha Hines MR#: [id number] [facility] Other XR foot RT min 3V* 925 [facility] Other XR foot RT min 3V* : 1990 Acct:[id number] [employer] [facility] Other XR foot RT min 3V* Age/Sex: 32 / F ADM Date: 06/16/23 [facility] Other XR foot RT min 3V* Loc: XDUCLY Room: Type: REG CLI [facility] [facility] Other XR foot RT min 3V* Attending Dr: Ann Perera MUSIC ORCHESTRATOR [facility] [facility] Other XR foot RT min 3V* Copies to: Ann Perera, [facility] [employer] [facility] Other XR foot RT min 3V* Ordering Provider: Ann Perera [facility] [employer] Other XR foot RT min 3V* Date of Service: 06/16/23 [facility] [facility] Other XR foot RT min 3V* XR/XR foot RT min 3V*: Right foot pain [facility] [facility] Other XR foot RT min 3V* XR foot RT min 3V* 06/16/2023 5:22 PM [employer] [facility] Other XR foot RT min 3V* SIGNS AND SYMPTOMS: Pain in lateral aspect of the right foot/fifth metatarsal [employer] [facility] Other XR foot RT min 3V* PROTOCOL: Frontal, lateral, and oblique radiographs of the right foot [facility] Other XR foot RT min 3V* COMPARISON: 05/04/2021 [employer] [facility] Other XR foot RT min 3V* FINDINGS: [facility] [facility] Other XR foot RT min 3V* The bones are in anatomic alignment. There is no evidence of fracture or dislocation. The joint [facility] Other XR foot RT min 3V* spaces are preserved. No significant soft tissue swelling. There is an os perineum along the lateral [employer] Other XR foot RT min 3V* aspect of the midfoot. There is minimal plantar surface calcaneal spurring. [facility] [facility] Other XR foot RT min 3V* XR/XR foot RT min 3V* [facility] [facility] Other XR foot RT min 3V* IMPRESSION: [facility] [facility] Other XR foot RT min 3V* No acute bony injury. [facility] [facility] Other XR foot RT min 3V* Impression dictated by: Ishmael Nelson M.D.06/16/2023 5:39 PM [facility] [facility] Other XR foot RT min 3V* Dictation Location: [facility]PC-[facility] 10K Other XR foot RT min 3V* Transcribed By: PWS 06/16/23 1739 [facility] [facility] Other XR foot RT min 3V* Dictated By: Ishmael Nelson II, MD 06/16/23 [facility] [employer] Other XR foot RT min 3V* Signed By: [facility] [facility] Other XR foot RT min 3V* 06/16/[address] [place] [address] [employer] Other CBC AUTO DIFFon 04-15-2023 BASO # 0.1 103/ul Normal 0.0-0.1 [facility] Comment on above: Performed By: #### C BC #### [facility] [address] [place] [address] Dr. Belkis Ray Basophils/100 WBC (Bld) 0.9 % Normal 0.2-2.0 [facility] Comment on above: Performed By: #### C BC #### [facility] [address] [place] [address] Dr. Belkis Ray EO # 0.2 103/ul Normal 0.0-0.7 [facility] Comment on above: Performed By: #### C BC #### [facility] [address] [place] [address] [address] Belkis Ray Eosinophils/100 WBC (Bld) 2.8 % Normal 0.9-7.0 [facility] Comment on above: Performed By: #### C BC #### [facility] [address] [place] [address] Dr. Belkis Ray Erythrocyte distribution width (RBC) [Ratio] 12.6 % Normal 11.0-15.0 [facility] Comment on above: Performed By: #### C BC #### [facility] [address] [place] [address] Dr. Belkis Ray Hematocrit (Bld) [Volume fraction] 37.6 % Normal 36.0-48.0 [facility] Comment on above: Performed By: #### C BC #### [facility] [address] [place] [address] Dr. Belkis Ray Hemoglobin (Bld) [Mass/Vol] 12.7 g/dL Normal 12.0-16.0 [facility] Comment on above: Performed By: #### C BC #### [facility] [address] [place] [address] Dr. Belkis Ray IG # 0.02 10e3/ul Normal 0.00-0.03 [facility] Comment on above: Performed By: #### C BC #### [facility] [address] [place] [address] Dr. Belkis Ray IG % 0.3 % Normal 0.0-0.5 [facility] Comment on above: Performed By: #### C BC #### [facility] [address] [place] [address] Dr. Belkis Ray LYMPH # 2.7 103/ul Normal 1.2-3.[address] [facility] Comment on above: Performed By: #### C BC #### [facility] [address] [place] [address] Dr. Belkis Ray Lymphocytes/100 WBC (Bld) 42.7 % Normal 20.5-60.[address] [facility] Comment on above: Performed By: #### C BC #### [facility] [address] [place] [address] Dr. Belkis Ray MANUAL DIFF REQ NO Normal [facility] Comment on above: Performed By: #### C BC #### [facility] [address] [place] [address] Dr. Belkis Ray MCH (RBC) [Entitic mass] 31.6 pg Normal 26.7-34.0 [facility] Comment on above: Performed By: #### C BC #### [facility] [address] [place] [address] Dr. Belkis Ray MCHC (RBC) [Mass/Vol] 33.8 g/dL Normal 29.9-35.2 [facility] Comment on above: Performed By: #### C BC #### [facility] [address] [place] [address] Dr. Belkis Ray MCV (RBC) [Entitic vol] 93.5 fL Normal 81.0-99.0 [facility] Comment on above: Performed By: #### C BC #### [facility] [address] [place] [address] Dr. Belkis Ray MONO # 0.4 103/ul Normal 0.3-0.8 [facility] Comment on above: Performed By: #### C BC #### [facility] [address] [place] [address] Dr. Belkis Ray Monocytes/100 WBC (Bld) 7.0 % Normal 1.7-12.0 [facility] Comment on above: Performed By: #### C BC #### [facility] [address] [place] [address] Dr. Belkis Ray NEUT # 2.9 103/ul Normal 1.4-6.5 [facility] Comment on above: Performed By: #### C BC #### [facility] [address] [place] [address] Dr. Belkis Ray Neutrophils/100 WBC (Bld) 46.3 % Normal 43.0-75.[address] [facility] Comment on above: Performed By: #### C BC #### [facility] [address] [place] [address] Dr. Belkis Ray Platelet mean volume (Bld) [Entitic vol] 9.4 fL Critically low 9.5-13.5 [facility] Comment on above: Performed By: #### C BC #### [facility] [address] [place] [address] Dr. Belkis Ray PLT 149 103/ul Critically low 150-450 [facility] Comment on above: Performed By: #### C BC #### [facility] [address] [place] [address] Dr. Belkis Ray RBC 4.02 106/ul Critically low 4.20-5.40 [facility] Comment on above: Performed By: #### C BC #### [facility] [address] [place] [address] Dr. Belkis Ray WBC 6.3 103/ul Normal 4.0-11.0 [facility] Comment on above: Performed By: #### C BC #### [facility] [address] [place] [address] Dr. Belkis Ray LIVER PROFILEon 04-15-2023 Albumin [Mass/Vol] 3.6 g/dL Normal 3.4-5.[address] [facility] Comment on above: Performed By: #### T SH, PREGQNT #### [facility] [address] [place] [address] Dr. Belkis Ray Albumin/Globulin [Mass ratio] 1.0 {ratio} Normal [facility] Comment on above: Performed By: #### T SH, PREGQNT #### [facility] [address] [place] [address] Dr. Belkis Ray ALP [Catalytic activity/Vol] 61 U/L Normal 46-[address] [facility] Comment on above: Performed By: #### T SH, PREGQNT #### [facility] [address] [place] [address] Dr. Belkis Ray ALT [Catalytic activity/Vol] 35 U/L Normal 14-59 [facility] Comment on above: Performed By: #### T SH, PREGQNT #### [facility] [address] [place] [address] Dr. Belkis Ray AST [Catalytic activity/Vol] 27 U/L Normal 15-37 [facility] Comment on above: Performed By: #### T SH, PREGQNT #### [facility] [address] [place] [address] Dr. Belkis Ray BILI, CONJUGATED 0.2 mg/dL Normal 0.0-0.2 [facility] Comment on above: Performed By: #### T SH, PREGQNT #### [facility] [address] [place] [address] Dr. Belkis Ray Bilirubin [Mass/Vol] 0.4 mg/dL Normal 0.2-1.0 [facility] Comment on above: Performed By: #### T SH, PREGQNT #### [facility] [address] [place] [address] Dr. Belkis Ray Globulin (S) [Mass/Vol] 3.6 g/dL Normal [facility] Comment on above: Performed By: #### T SH, PREGQNT #### [facility] [address] [place] [address] Dr. Belkis Ray Protein [Mass/Vol] 7.2 g/dL Normal 6.4-8.2 [facility] Comment on above: Performed By: #### T SH, PREGQNT #### [facility] [address] [place] [address] Dr. Belkis Ray PROF CHEM 8 (BAS METB)on Anion gap [Moles/Vol] 12.3 mmol/L Normal [facility] Comment on above: Performed By: #### T SH, PREGQNT #### [facility] [address] [place] [address] Dr. Belkis Ray Calcium [Mass/Vol] 8.9 mg/dL Normal 8.5-10.1 [facility] Comment on above: Performed By: #### T SH, PREGQNT #### [facility] [address] [place] [address] Dr. Belkis Ray Chloride [Moles/Vol] 105 mmol/L Normal 98-[address] [facility] Comment on above: Performed By: #### T SH, PREGQNT #### [facility] [address] [place] [address] Dr. Belkis Ray CO2 [Moles/Vol] 27.6 mmol/L Normal 21.0-32.0 [facility] Comment on above: Performed By: #### T SH, PREGQNT #### [facility] [address] [place] [address] [address] Belkis Ray Creatinine [Mass/Vol] 0.57 mg/dL Normal 0.55-1.02 [facility] Comment on above: Performed By: #### T SH, PREGQNT #### [facility] [address] [place] [address] [address] Belkis Ray EGFR-AF LEBANESE >60 Normal >=60 [facility] Comment on above: Performed By: #### T SH, PREGQNT #### [facility] [address] [place] [address] [address] Belkis Ray EGFR-NON AF LEBANESE >60 Normal >=[address] [facility] Comment on above: Performed By: #### T SH, PREGQNT #### [facility] [address] [place] [address] [address] Belkis Ray Glucose [Mass/Vol] 89 mg/dL Normal 74-[address] [facility] Comment on above: Performed By: #### T SH, PREGQNT #### [facility] [address] [place] [address] [address] Belkis Ray Potassium [Moles/Vol] 3.9 mmol/L Normal 3.5-5.[address] [facility] Comment on above: Performed By: #### T SH, PREGQNT #### [facility] [address] [place] [address] [address] Belkis Ray Sodium [Moles/Vol] 141 mmol/L Normal 136-145 [facility] Comment on above: Performed By: #### T SH, PREGQNT #### [facility] [address] [place] [address] [address] Belkis Ray Urea nitrogen [Mass/Vol] 12.0 mg/dL Normal 7.0-18.0 [facility] Comment on above: Performed By: #### T SH, PREGQNT #### [facility] [address] [place] [address] [address] Belkis Ray Urea nitrogen/Creatinine [Mass ratio] 21.1 mg/mg Normal [facility] Comment on above: Performed By: #### T SH, PREGQNT #### [facility] [address] [place] [address] Dr. Belkis Ray PROTIMEon 04-15-2023 INR Coag (PPP) [Relative time] 1.09 {INR} Normal [facility] Comment on above: Performed By: #### T SH, PREGQNT #### [facility] [address] [place] [address] Dr. Belkis Ray INR GUIDELINES SEE BELOW Normal [facility] Comment on above: Result Comment: EDE RED INR: 2.0 - 3.0 CONDITIONS NOT LISTED BELOW 2.5 - 3.5 FOR PROSTHETIC HEART VALVE REPLACEMENT 2.5 - 3.5 RECURRENT THROMBOSIS Performed By: #### T SH, PREGQNT #### [facility] [address] [place] [address] Dr. Belkis Ray PT Coag (PPP) [Time] 11.5 s Normal 9.0-11.6 [facility] Comment on above: Performed By: #### T SH, PREGQNT #### [facility] [address] [place] [address] Dr. Belkis Ray NM HEPATOBILIARY SCAN W [...] by: RODNEY JOHN Date: 2023-02-14 15:07 Normal [facility] COVID + FLU Quick Testingon 01-18-2023 SARS-CoV-2 (COVID-19) RNA HOLDEN+probe Ql (Unsp spec) Negative [facility] Other COVID + FLU Quick Testing Negative [facility] Other Quick Strepon 01-18-2023 S. pyogenes Org specific cx Ql (Throat) Negative [facility] Other Quick Strep [facility] Other US PELVIS AND TRANSVAGon US PELVIS [...] by: RODNEY MEJIA Date: 2023-01-07 08:[address] [facility] ANTI-MULLERIAN HORMONEon Anti-Mullerian Hormone (AMH) 4.29 ng/mL Normal [facility] Comment on above: Result Comment: For assays employing antibodies, the possibility exists for interference by heterophile antibodies in the samples.1 1.Lucho Tejada Interferences in Immunoassays - still a threat. Clin. Chem. 2000; 46: 8404-3222. This test was developed and its performance characteristics determined by [employer]. It has not been cleared or approved by the Food and Drug Administration. Reference Range: Females 31 - 35y: 0.66 - 8.75 Median 3.00 AMH concentrations of >= 1.06 ng/mL is correlated with a better response to ovarian stimulation, produced more retrievable oocytes and higher odds of live according to Anabell et al. Fertility and Sterility. 2010: 94:2693-2821. The current AMH test method correlates with [...] AMH-secreting ovarian tumor. Performed By: #### [facility] #### [facility] [address] [place] [address] Dr. Belkis Ray US PELVIS AND TRANSVAGon [...] KYLE BENAVIDES Date: 2022-11-26 08:[address] [facility] CBC AUTO DIFFon 11-25-2022 BASO # 0.0 103/ul Normal 0.0-0.1 [facility] Comment on above: Performed By: #### C BC #### [facility] [address] [address] [address] Belkis Ray Basophils/100 WBC (Bld) 0.4 % Normal 0.2-2.0 [facility] Comment on above: Performed By: #### C BC #### [facility] [address] [address] [address] Belkis Ray EO # 0.2 103/ul Normal 0.0-0.7 [facility] Comment on above: Performed By: #### C BC #### [facility] [address] [address] [address] Belkis Ray Eosinophils/100 WBC (Bld) 2.3 % Normal 0.9-7.0 [facility] Comment on above: Performed By: #### C BC #### [facility] [address] [address] [address] Belkis Ray Erythrocyte distribution width (RBC) [Ratio] 13.0 % Normal 11.0-15.0 [facility] Comment on above: Performed By: #### C BC #### [facility] [address] [address] [address] Belkis Ray Hematocrit (Bld) [Volume fraction] 35.8 % Critically low 36.0-48.0 [facility] Comment on above: Performed By: #### C BC #### [facility] [address] [address] [address] Belkis Ray Hemoglobin (Bld) [Mass/Vol] 12.7 g/dL Normal 12.0-16.0 [facility] Comment on above: Performed By: #### C BC #### [facility] [address] [place] [address] Dr. Belkis Ray IG # 0.02 10e3/ul Normal 0.00-0.03 [facility] Comment on above: Performed By: #### C BC #### [facility] [address] [place] [address] Dr. Belkis Ray IG % 0.2 % Normal 0.0-0.5 [facility] Comment on above: Performed By: #### C BC #### [facility] [address] [place] [address] Dr. Belkis Ray LYMPH # 2.5 103/ul Normal 1.2-3.8 [facility] Comment on above: Performed By: #### C BC #### [facility] [address] [place] [address] Dr. Belkis Ray Lymphocytes/100 WBC (Bld) 26.4 % Normal 20.5-60.0 [facility] Comment on above: Performed By: #### C BC #### [facility] [address] [place] [address] Dr. Belkis Ray MANUAL DIFF REQ NO Normal [facility] Comment on above: Performed By: #### C BC #### [facility] [address] [place] [address] Dr. Belkis Ray MCH (RBC) [Entitic mass] 31.8 pg Normal 26.7-34.0 [facility] Comment on above: Performed By: #### C BC #### [facility] [address] [place] [address] Dr. Belkis Ray MCHC (RBC) [Mass/Vol] 35.5 g/dL Critically high 29.9-35.2 [facility] Comment on above: Performed By: #### C BC #### [facility] [address] [place] [address] Dr. Belkis Ray MCV (RBC) [Entitic vol] 89.5 fL Normal 81.0-99.0 [facility] Comment on above: Performed By: #### C BC #### [facility] [address] [address] [address] Belkis Ray MONO # 0.6 103/ul Normal 0.3-0.[address] [facility] Comment on above: Performed By: #### C BC #### [facility] [address] [address] [address] Belkis Ray Monocytes/100 WBC (Bld) 6.3 % Normal 1.7-12.0 [facility] Comment on above: Performed By: #### C BC #### [facility] [address] [address] [address] Belkis Ray NEUT # 6.0 103/ul Normal 1.4-6.[address] [facility] Comment on above: Performed By: #### C BC #### [facility] [address] [place] [address] Dr. Belkis Ray Neutrophils/100 WBC (Bld) 64.4 % Normal 43.0-75.0 [facility] Comment on above: Performed By: #### C BC #### [facility] [address] [address] [address] Belkis Ray Platelet mean volume (Bld) [Entitic vol] 9.0 fL Critically low 9.5-13.5 [facility] Comment on above: Performed By: #### C BC #### [facility] [address] [address] [address] Belkis Ray PLT 173 103/ul Normal 150-[address] [facility] Comment on above: Performed By: #### C BC #### [facility] [address] [address] [address] Belkis Ray RBC 4.00 106/ul Critically low 4.20-5.40 [facility] Comment on above: Performed By: #### C BC #### [facility] [address] [address] [address] Belkis Ray WBC 9.3 103/ul Normal 4.0-11.[address] [facility] Comment on above: Performed By: #### C BC #### [facility] [address] [address] [address] Belkis Ray FREE T4on 11-25-2022 Free T4 [Mass/Vol] 0.80 ng/dL Normal 0.76-1.[address] [facility] Comment on above: Performed By: #### F T4 #### [facility] [address] [place] [address] Dr. Belkis Ray GLYCOHEMOGLOBIN A1Con 2022 ADA RECOMMENDATION SEE BELOW Normal [facility] Comment on above: Result Comment: ADA RECOMMENDED LIMIT 4.0 - 6.0 ADA THERAPEUTIC TARGET < 7.0 ACTION SUGGESTED > 7.0 Performed By: #### T SH, PREGQNT #### [facility] [address] [place] [address] Dr. Belkis Ray Glucose [Mass/Vol] 103 mg/dL Normal [facility] Comment on above: Performed By: #### T SH, PREGQNT #### [facility] [address] [place] [address] Dr. Belkis Ray HbA1c (Bld) [Mass fraction] 5.2 % Normal 4.5-6.2 [facility] Comment on above: Performed By: #### T SH, PREGQNT #### [facility] [address] [place] [address] Dr. Belkis Ray PAP ACOG PANEL 2: 30 to 65on 11-25-2022 . . Normal [facility] Comment on above: Result Comment: Perf ormed at: WB Performed By: #### [id number] #### [facility] [address] [place] [address] Dr. Belkis Ray Age Gdln ACOG Testing 30-65 Normal [facility] Comment on above: Performed By: #### [id number] #### [facility] [address] [place] [address] Dr. Belkis Ray DIAGNOSIS: Comment Normal [facility] Comment on above: Result Comment: NEGA TIVE FOR INTRAEPITHELIAL LESION OR MALIGNANCY. Performed at: WB Performed By: #### [id number] #### [facility] [address] [place] [address] Dr. Belkis Ray HPV Aptima Negative Normal Negative [facility] Comment on above: Result Comment: This nucleic acid amplification test detects fourteen high-risk HPV types (16,18,31,33,35,39,45,51,52,56,58,59,66,68) without differentiation. Performed at: =G Performed By: #### [id number] #### [facility] [address] [place] [address] Dr. Belkis Ray HPV Genotype Reflex Comment Normal [facility] Comment on above: Result Comment: Crit eria not met, HPV Genotype not performed. Performed at: WB Performed By: #### [id number] #### [facility] [address] [place] [address] Dr. Belkis Ray Methodology: Comment Normal [facility] Comment on above: Result Comment: This liquid based ThinPrep(R) pap test was screened with the use of an image guided system. Performed at: WB Performed By: #### [id number] #### [facility] [address] [place] [address] Dr. Belkis Ray Note: Comment Normal [facility] Comment on above: Result Comment: The Pap smear is a screening test designed to aid in the detection of premalignant and malignant conditions of the uterine cervix. It is not a diagnostic procedure and should not be used as the sole means of detecting cervical cancer. Both false-positive and false-negative reports do occur. . Performed at: WB Performed By: #### [id number] #### [facility] [address] [place] [address] Dr. Belkis Ray Performed by: Comment Normal [facility] Comment on above: Result Comment: Darius Hammond, Guidance Counselor (ASCP) Performed at: WB Performed By: #### [id number] #### [facility] [address] [place] [address] Dr. Belkis Ray Specimen adequacy: Comment Normal [facility] Comment on above: Result Comment: Sati sfactory for evaluation. Endocervical and/or squamous metaplastic cells (endocervical component) are present. Performed at: WB Performed By: #### [id number] #### [facility] [address] [place] [address] Dr. Belkis Ray PREG QUANT HCGon 11-25-2022 HCG QUANT <1 Normal [facility] Comment on above: Performed By: #### T CAS, PREGQNT #### [facility] [address] [place] [address] Dr. Belkis Ray HCG RANGE SEE BELOW Normal [facility] Comment on above: Result Comment: 5-50 0.2-1 WEEK 50-500 1-2 WEEKS 100-5,000 2-3 WEEKS 500-10,000 3-4 WEEKS 1,000-50,000 4-5 WEEKS 10,000-100,000 5-6 WEEKS 15,000-200,000 6-8 WEEKS 10,000-100,000 2-3 MONTHS Performed By: #### T CAS, PREGQNT #### [facility] [address] [place] [address] Dr. Belkis Ray PROTIMEon 11-25-2022 INR Coag (PPP) [Relative time] 1.11 {INR} Normal [facility] Comment on above: Performed By: #### T CAS, PREGQNT #### [facility] [address] [place] [address] Dr. Belkis Ray INR GUIDELINES SEE BELOW Normal [facility] Comment on above: Result Comment: EDE RED INR: 2.0 - 3.0 CONDITIONS NOT LISTED BELOW 2.5 - 3.5 FOR PROSTHETIC HEART VALVE REPLACEMENT 2.5 - 3.5 RECURRENT THROMBOSIS Performed By: #### T CAS, PREGQNT #### [facility] [address] [place] [address] Dr. Belkis Ray PT Coag (PPP) [Time] 11.9 s Critically high 9.0-11.6 [facility] Comment on above: Performed By: #### T CAS, PREGQNT #### [facility] [address] [place] [address] Dr. Belkis Ray PTTon 11-25-2022 aPTT Coag (Bld) [Time] 30.3 s Normal 22.3-36.2 [facility] Comment on above: Performed By: #### T SH, PREGQNT #### [facility] [address] [place] [address] Dr. Belkis Ray TSHon 11-25-2022 TSH 2.129 uIU/mL Normal 0.358-3.740 [facility] Comment on above: Performed By: #### T SH, PREGQNT #### [facility] [address] [place] [address] Dr. Belkis Ray Quick Strepon 10-24-2022 S. pyogenes Org specific cx Ql (Throat) Negative [employer] [facility] 10K Other Quick Strep [employer] [facility] 10K Other CBC AUTO DIFFon 10-15-2022 BASO # 0.1 103/ul Normal 0.0-0.1 [facility] Comment on above: Performed By: #### C BC #### [facility] [address] [place] [address] Dr. Belkis Ray Basophils/100 WBC (Bld) 0.7 % Normal 0.2-2.0 [facility] Comment on above: Performed By: #### C BC #### [facility] [address] [place] [address] Dr. Belkis Ray EO # 0.3 103/ul Normal 0.0-0.7 [facility] Comment on above: Performed By: #### C BC #### [facility] [address] [place] [address] Dr. Belkis Ray Eosinophils/100 WBC (Bld) 3.5 % Normal 0.9-7.0 [facility] Comment on above: Performed By: #### C BC #### [facility] [address] [place] [address] Dr. Belkis Ray Erythrocyte distribution width (RBC) [Ratio] 13.2 % Normal 11.0-15.0 [facility] Comment on above: Performed By: #### C BC #### [facility] [address] [place] [address] Dr. Belkis Ray Hematocrit (Bld) [Volume fraction] 37.3 % Normal 36.0-48.0 [facility] Comment on above: Performed By: #### C BC #### [facility] [address] [address] [address] Belkis Ray Hemoglobin (Bld) [Mass/Vol] 12.6 g/dL Normal 12.0-16.0 [facility] Comment on above: Performed By: #### C BC #### [facility] [address] [place] [address] Dr. Belkis Rya IG # 0.02 10e3/ul Normal 0.00-0.03 [facility] Comment on above: Performed By: #### C BC #### [facility] [address] [place] [address] Dr. Belkis Ray IG % 0.3 % Normal 0.0-0.5 [facility] Comment on above: Performed By: #### C BC #### [facility] [address] [place] [address] Dr. Belkis Ray LYMPH # 3.0 103/ul Normal 1.2-3.8 [facility] Comment on above: Performed By: #### C BC #### [facility] [address] [place] [address] Dr. Belkis Ray Lymphocytes/100 WBC (Bld) 41.4 % Normal 20.5-60.0 [facility] Comment on above: Performed By: #### C BC #### [facility] [address] [place] [address] Dr. Belkis Ray MANUAL DIFF REQ NO Normal [facility] Comment on above: Performed By: #### C BC #### [facility] [address] [place] [address] Dr. Belkis Ray MCH (RBC) [Entitic mass] 31.3 pg Normal 26.7-34.0 [facility] Comment on above: Performed By: #### C BC #### [facility] [address] [place] [address] Dr. Belkis Ray MCHC (RBC) [Mass/Vol] 33.8 g/dL Normal 29.9-35.2 [facility] Comment on above: Performed By: #### C BC #### [facility] [address] [address] [address] Belkis Ray MCV (RBC) [Entitic vol] 92.8 fL Normal 81.0-99.0 [facility] Comment on above: Performed By: #### C BC #### [facility] [address] [address] [address] Belkis Ray MONO # 0.5 103/ul Normal 0.3-0.8 [facility] Comment on above: Performed By: #### C BC #### [facility] [address] [address] [address] Belkis Ray Monocytes/100 WBC (Bld) 6.3 % Normal 1.7-12.0 [facility] Comment on above: Performed By: #### C BC #### [facility] [address] [place] [address] Dr. Belkis Ray NEUT # 3.5 103/ul Normal 1.4-6.5 [facility] Comment on above: Performed By: #### C BC #### [facility] [address] [place] [address] Dr. Belkis Ray Neutrophils/100 WBC (Bld) 47.8 % Normal 43.0-75.0 [facility] Comment on above: Performed By: #### C BC #### [facility] [address] [place] [address] Dr. Belkis Ray Platelet mean volume (Bld) [Entitic vol] 9.4 fL Critically low 9.5-13.5 [facility] Comment on above: Performed By: #### C BC #### [facility] [address] [place] [address] Dr. Belkis Ray PLT 169 103/ul Normal 150-[address] [facility] Comment on above: Performed By: #### C BC #### [facility] [address] [address] [address] Belkis Ray RBC 4.02 106/ul Critically low 4.20-5.40 [facility] Comment on above: Performed By: #### C BC #### [facility] [address] [place] [address] Dr. Belkis Ray WBC 7.4 103/ul Normal 4.0-11.0 [facility] Comment on above: Performed By: #### C BC #### [facility] [address] [place] [address] Dr. Belkis Ray PROF CHEM 8 (BAS METB)on Anion gap [Moles/Vol] 11.5 mmol/L Normal [facility] Comment on above: Performed By: #### T SH, PREGQNT #### [facility] [address] [place] [address] Dr. Belkis Ray Calcium [Mass/Vol] 9.1 mg/dL Normal 8.5-10.[address] [facility] Comment on above: Performed By: #### T SH, PREGQNT #### [facility] [address] [place] [address] Dr. Belkis Ray Chloride [Moles/Vol] 103 mmol/L Normal 98-107 [facility] Comment on above: Performed By: #### T SH, PREGQNT #### [facility] [address] [place] [address] Dr. Belkis Ray CO2 [Moles/Vol] 26.4 mmol/L Normal 21.0-32.0 [facility] Comment on above: Performed By: #### T SH, PREGQNT #### [facility] [address] [place] [address] Dr. Belkis Ray Creatinine [Mass/Vol] 0.58 mg/dL Normal 0.55-1.02 [facility] Comment on above: Performed By: #### T SH, PREGQNT #### [facility] [address] [place] [address] Dr. Belkis Ray EGFR-AF LEBANESE >60 Normal >=60 [facility] Comment on above: Performed By: #### T SH, PREGQNT #### [facility] [address] [place] [address] Dr. Belkis Ray EGFR-NON AF LEBANESE >60 Normal >=60 [facility] Comment on above: Performed By: #### T SH, PREGQNT #### [facility] [address] [place] [address] Dr. Belkis Ray Glucose [Mass/Vol] 85 mg/dL Normal 74-[address] [facility] Comment on above: Performed By: #### T SH, PREGQNT #### [facility] [address] [place] [address] Dr. Belkis Ray Potassium [Moles/Vol] 3.9 mmol/L Normal 3.5-5.1 [facility] Comment on above: Performed By: #### T SH, PREGQNT #### [facility] [address] [place] [address] Dr. Belkis Ray Sodium [Moles/Vol] 137 mmol/L Normal 136-[address] [facility] Comment on above: Performed By: #### T SH, PREGQNT #### [facility] [address] [place] [address] Dr. Belkis Ray Urea nitrogen [Mass/Vol] 11.0 mg/dL Normal 7.0-18.0 [facility] Comment on above: Performed By: #### T SH, PREGQNT #### [facility] [address] [place] [address] Dr. Belkis Ray Urea nitrogen/Creatinine [Mass ratio] 19.0 mg/mg Normal [facility] Comment on above: Performed By: #### T SH, PREGQNT #### [facility] [address] [place] [address] Dr. Belkis Ray TSHon 10-15-2022 TSH 1.286 uIU/mL Normal 0.358-3.740 [facility] Comment on above: Performed By: #### T SH, PREGQNT #### [facility] [address] [place] [address] Dr. Belkis Ray CBC AUTO DIFFon 08-13-2022 BASO # 0.0 103/ul Normal 0.0-0.1 [facility] Comment on above: Performed By: #### C BC #### [facility] [address] [place] [address] Dr. Belkis Ray Basophils/100 WBC (Bld) 0.5 % Normal 0.2-2.0 [facility] Comment on above: Performed By: #### C BC #### [facility] [address] [place] [address] Dr. Belkis Ray EO # 0.2 103/ul Normal 0.0-0.[address] [facility] Comment on above: Performed By: #### C BC #### [facility] [address] [place] [address] Dr. Belkis Ray Eosinophils/100 WBC (Bld) 2.2 % Normal 0.9-7.0 [facility] Comment on above: Performed By: #### C BC #### [facility] [address] [place] [address] Dr. Belkis Ray Erythrocyte distribution width (RBC) [Ratio] 13.7 % Normal 11.0-15.0 [facility] Comment on above: Performed By: #### C BC #### [facility] [address] [place] [address] Dr. Belkis Ray Hematocrit (Bld) [Volume fraction] 41.1 % Normal 36.0-48.0 [facility] Comment on above: Performed By: #### C BC #### [facility] [address] [place] [address] Dr. Belkis Ray Hemoglobin (Bld) [Mass/Vol] 13.3 g/dL Normal 12.0-16.0 [facility] Comment on above: Performed By: #### C BC #### [facility] [address] [place] [address] Dr. Belkis Ray IG # 0.01 10e3/ul Normal 0.00-0.03 [facility] Comment on above: Performed By: #### C BC #### [facility] [address] [place] [address] Dr. Belkis Ray IG % 0.1 % Normal 0.0-0.[address] [facility] Comment on above: Performed By: #### C BC #### [facility] [address] [place] [address] Dr. Belkis Ray LYMPH # 2.5 103/ul Normal 1.2-3.8 [facility] Comment on above: Performed By: #### C BC #### [facility] [address] [place] [address] Dr. Belkis Ray Lymphocytes/100 WBC (Bld) 33.0 % Normal 20.5-60.0 [facility] Comment on above: Performed By: #### C BC #### [facility] [address] [place] [address] Dr. Belkis Ray MANUAL DIFF REQ NO Normal [facility] Comment on above: Performed By: #### C BC #### [facility] [address] [place] [address] Dr. Belkis Ray MCH (RBC) [Entitic mass] 30.5 pg Normal 26.7-34.0 [facility] Comment on above: Performed By: #### C BC #### [facility] [address] [place] [address] Dr. Belkis Ray MCHC (RBC) [Mass/Vol] 32.4 g/dL Normal 29.9-35.2 [facility] Comment on above: Performed By: #### C BC #### [facility] [address] [place] [address] Dr. Belkis Ray MCV (RBC) [Entitic vol] 94.3 fL Normal 81.0-99.0 [facility] Comment on above: Performed By: #### C BC #### [facility] [address] [place] [address] Dr. Belkis Ray MONO # 0.3 103/ul Normal 0.3-0.8 [facility] Comment on above: Performed By: #### C BC #### [facility] [address] [place] [address] Dr. Belkis Ray Monocytes/100 WBC (Bld) 4.2 % Normal 1.7-12.0 [facility] Comment on above: Performed By: #### C BC #### [facility] [address] [place] [address] Dr. Belkis Ray NEUT # 4.6 103/ul Normal 1.4-6.5 [facility] Comment on above: Performed By: #### C BC #### [facility] [address] [place] [address] Dr. Belkis Ray Neutrophils/100 WBC (Bld) 60.0 % Normal 43.0-75.0 [facility] Comment on above: Performed By: #### C BC #### [facility] [address] [place] [address] Dr. Belkis Ray Platelet mean volume (Bld) [Entitic vol] 9.3 fL Critically low 9.5-13.5 [facility] Comment on above: Performed By: #### C BC #### [facility] [address] [place] [address] Dr. Belkis Ray PLT 182 103/ul Normal 150-450 [facility] Comment on above: Performed By: #### C BC #### [facility] [address] [place] [address] Dr. Belkis Ray RBC 4.36 106/ul Normal 4.20-5.40 [facility] Comment on above: Performed By: #### C BC #### [facility] [address] [place] [address] Dr. Belkis Ray WBC 7.6 103/ul Normal 4.0-11.0 [facility] Comment on above: Performed By: #### C BC #### [facility] [address] [place] [address] Dr. Blekis Ray PROF 14(COMP METB)on 022 Albumin [Mass/Vol] 3.9 g/dL Normal 3.4-5.[address] [facility] Comment on above: Performed By: #### C MP #### [facility] [address] [place] [address] Dr. Belkis Ray Albumin/Globulin [Mass ratio] 1.1 {ratio} Normal [facility] Comment on above: Performed By: #### C MP #### [facility] [address] [place] [address] Dr. Belkis Ray ALP [Catalytic activity/Vol] 70 U/L Normal 46-116 [facility] [facility] Comment on above: Performed By: #### C MP #### [facility] [address] [address] [address] Belkis Ray ALT [Catalytic activity/Vol] 50 U/L Normal 14-59 [facility] Comment on above: Performed By: #### C MP #### [facility] [address] [address] [address] Belkis Ray Anion gap [Moles/Vol] 14.1 mmol/L Normal [facility] Comment on above: Performed By: #### C MP #### [facility] [address] [address] [address] Belkis Ray AST [Catalytic activity/Vol] 30 U/L Normal 15-37 [facility] Comment on above: Performed By: #### C MP #### [facility] [address] [place] [address] Dr. Belkis Ray Bilirubin [Mass/Vol] 0.7 mg/dL Normal 0.2-1.0 [facility] Comment on above: Performed By: #### C MP #### [facility] [address] [address] [address] Belkis Ray Calcium [Mass/Vol] 9.1 mg/dL Normal 8.5-10.[address] [facility] Comment on above: Performed By: #### C MP #### [facility] [address] [place] [address] Dr. Belkis Ray Chloride [Moles/Vol] 105 mmol/L Normal 98-107 [facility] Comment on above: Performed By: #### C MP #### [facility] [address] [address] [address] Belkis Ray CO2 [Moles/Vol] 24.8 mmol/L Normal 21.0-32.0 [facility] Comment on above: Performed By: #### C MP #### [facility] [address] [address] [address] Belkis Ray Creatinine [Mass/Vol] 0.59 mg/dL Normal 0.55-1.02 [facility] Comment on above: Performed By: #### C MP #### [facility] [address] [address] [address] Belkis Ray EGFR-AF LEBANESE >60 Normal >=60 [facility] Comment on above: Performed By: #### C MP #### [facility] [address] [address] [address] Belkis Ray EGFR-NON AF LEBANESE >60 Normal >=60 [facility] Comment on above: Performed By: #### C MP #### [facility] [address] [address] [address] Belkis Ray Globulin (S) [Mass/Vol] 3.5 g/dL Normal [facility] Comment on above: Performed By: #### C MP #### [facility] [address] [address] [address] Belkis Ray Glucose [Mass/Vol] 147 mg/dL Critically high 74-106 [facility] Comment on above: Performed By: #### C MP #### [facility] [address] [address] [address] Belkis Ray Potassium [Moles/Vol] 3.9 mmol/L Normal 3.5-5.1 [facility] Comment on above: Performed By: #### C MP #### [facility] [address] [address] [address] Belkis Ray Protein [Mass/Vol] 7.4 g/dL Normal 6.4-8.2 [facility] Comment on above: Performed By: #### C MP #### [facility] [address] [address] [address] Belkis Ray Sodium [Moles/Vol] 140 mmol/L Normal 136-145 [facility] Comment on above: Performed By: #### C MP #### [facility] [address] [address] [address] Belkis Ray Urea nitrogen [Mass/Vol] 9.0 mg/dL Normal 7.0-18.0 [facility] Comment on above: Performed By: #### C MP #### [facility] [address] [address] [address] Belkis Ray Urea nitrogen/Creatinine [Mass ratio] 15.3 mg/mg Normal [facility] Comment on above: Performed By: #### C #### [facility] [address] [address] [address] Belkis Luciano 12-24-2021 CNPN Telephone ([place]) KAJALRADHA ([id number]) 1990 F Date Time Provider Department 12/24/21 VICKY CEDILLO During your visit today, we recorded the following information about you: Jamila Lockhart 12/24/2021 1:47 PM Signed Patient calling Asking when she needs to have labs drawn again? And if we can fax the orders to [facility]? FAX [phone] Erica Le RN 12/24/2021 2:25 PM Signed [...] Status:Closed by ERICA LE RN on 12/24/[address] [facility] HISTORY PHYSICALon HISTORY PHYSICAL HNO ID: [id number] Author: Erica Le RN Service: ? Author [...] mg/dL 20 AFP <11.0 ng/mL 6.0 Normal [facility] AFPon 08-27-2021 AFP 6.0 ng/mL Normal <11.0 [facility] Comment on above: Result Comment: AFP levels <11 ng/ml can be found in a variety of conditions, Hepatocellular Carcinoma and Non-seminomatous testicular cancer among others. Correlation with clinical picture and other test results including histopathology and radiology, where applicable, is recommended. Performed By: #### H FP, BMP, HBSAG, PT, CBC, FERR ####[facility] [place], [place] [phone]#### AHBCOT, SMTHS, CERULO, AHAVG, AHBSQ, AHCV1B, ANAS, MITOS, AFP, IGG ####[address] [phone]#### LKM ####[facility] [address] [place] [address] [phone] ANAon 08-27-2021 CARRIE by EIA 0.7 OD Ratio Normal [facility] Comment on above: Result Comment: OD R atio is interpreted as follows: Negative <1.0 Positive >=1.0 Performed By: #### H FP, BMP, HBSAG, PT, CBC, FERR ####[address] [phone]#### AHBCOT, SMTHS, CERULO, AHAVG, AHBSQ, AHCV1B, ANAS, MITOS, AFP, IGG ####[place] [phone]#### LKM ####[address] [phone] CARRIE by EIA, Qual Negative Normal Negative [facility] Comment on above: Performed By: #### H FP, BMP, HBSAG, PT, CBC, FERR ####[address] [phone]#### AHBCOT, SMTHS, CERULO, AHAVG, AHBSQ, AHCV1B, ANAS, MITOS, AFP, IGG ####[address] [place] [phone]#### LKM ####[address] [phone] Alpha-1 Antitryp Genon 08-27 Alpha-1 Antitryp Int See Below Normal [facility] Comment on above: Result Comment: (NOT E) Alpha-1 Antitrypsin Genotyping Laboratory Accession Number: [id number] Result: No Variant Detected in SERPINA1 (PI*MM) [...] two most common pathogenic variants: S (c.863A>T, p.Cuu359Ops, g.85178704), Z (c.1096G>A, p.Kco243Nrd, g.04719125), and the rarer variants: F (c.739C>T, p.Crd566Kvj, g.09379121), I (c.187C>T, p.Sum37Qeg, g.86378138). Limitations: This Laboratory Developed Test (LDT) is [...] developed and its performance characteristics determined by [facility] [place] ([facility]). It has not been cleared or approved by the FDA. RT-PLWA is regulated under CLIA as certified to perform high- complexity testing. This test is used for clinical purposes. It should not be regarded as investigational or for research. References: 1) Cleopatra LUTZ, Anyi G, Krystina ML, Ralph M, Charbel CE, K, Mery DK, Oanh SL, Ar BARKER, Jono RICHTER, Olivia C, Anirudh J. The Diagnosis and Management of Alpha-1 Antritrypsin Deficiency in the Adult. Chronic Obstr Pulm Dis. 2016 Apr 22;3:668-682. 2) Ellen JA, Jenifer ON, Araceli ER, Mariela DG. a1-Antitrypsin phenotypes and associated serum protein concentrations in a large clinical population. Chest.2013 Feb;143(4):1000-8. 3) Vito A, Senthil NA, Don CR, Katie FJ, Haresh SJ, Annabelle AF. Molecular characterisation of three ahltz-8-rkeujzfjnsp deficiency variants: proteinase inhibitor (Pi) nullcardiff (Zop799----Gyd); PiMmalton (Rsp50----kqgrmwls) and PiI (Tmz23----Yhl). Hum [place]. 1989 Oct;84(1):55-8. 4) Con TRONCOSO and Cleopatra LUTZ. Clinical practice. Alpha1-antitrypsin deficiency. N Engl J Med. 2008May 11;360(14)2667-93. 5) Christopher NJ, Bora F, Tova LUTZ. The significance of the F variant of cpawy-2-waeywbwtzhz and unique case report of a PiFF homozygote. BMC Pulm Med. 2014 Jun 23;14:132. 6) Jono RICHTER, Babita ANDERSEN, and Yusuf Schwartz. Alpha-1 Antitrypsin Deficiency. 2005Sep 12 [Updated 2017 December 05]. In: Jairo RA, Brayden MP, Rudy TO, et al., editors. GeneReviews [Internet]. [place] ([place]): [facility]; 0273-7906. Available from: http://www.ncbi.nlm.nih.gov/books/SBB4640/ As reviewed by Jacek Lomeli, PhD, HCLD Performed By: #### H A1AT #### [address] [phone] Basic Metabolic Panlon 08-27 Anion gap [Moles/Vol] 9 mmol/L Normal 9-18 [facility] Comment on above: Performed By: #### H FP, BMP, HBSAG, PT, CBC, FERR #### [address] [phone] #### AHBCOT, SMTHS, CERULO, AHAVG, AHBSQ, AHCV1B, ANAS, MITOS, AFP, IGG #### [facility] [address] [phone] #### LKM #### [facility] [address] [place] [address] Calcium [Mass/Vol] 9.4 mg/dL Normal 8.5-10.5 [facility] Comment on above: Performed By: #### H FP, BMP, HBSAG, PT, CBC, FERR #### [address] [phone] #### AHBCOT, SMTHS, CERULO, AHAVG, AHBSQ, AHCV1B, ANAS, MITOS, AFP, IGG #### [facility] [address] [address] #### LKM #### [facility] [address] [place] [address] Chloride [Moles/Vol] 102 mmol/L Normal 98-110 [facility] Comment on above: Performed By: #### H FP, BMP, HBSAG, PT, CBC, FERR #### [address] [phone] #### AHBCOT, SMTHS, CERULO, AHAVG, AHBSQ, AHCV1B, ANAS, MITOS, AFP, IGG #### [address] [phone] #### LKM #### [facility] [address] [place], [place] [phone] CO2 [Moles/Vol] 25 mmol/L Normal 23-32 [facility] Comment on above: Performed By: #### H FP, BMP, HBSAG, PT, CBC, FERR #### [address] [phone] #### AHBCOT, SMTHS, CERULO, AHAVG, AHBSQ, AHCV1B, ANAS, MITOS, AFP, IGG #### [address] [phone] #### LKM #### [address] [phone] Creatinine [Mass/Vol] 0.52 mg/dL Low 0.70-1.40 [facility] Comment on above: Performed By: #### H FP, BMP, HBSAG, PT, CBC, FERR #### [address] [phone] #### AHBCOT, SMTHS, CERULO, AHAVG, AHBSQ, AHCV1B, ANAS, MITOS, AFP, IGG #### [address] [place] [phone] #### LKM #### [address] [phone] eGFR- Amer. >60 Normal >60 [facility] Comment on above: Performed By: #### H FP, BMP, HBSAG, PT, CBC, FERR #### [address] [phone] #### AHBCOT, SMTHS, CERULO, AHAVG, AHBSQ, AHCV1B, ANAS, MITOS, AFP, IGG #### [address] [place] [phone] #### LKM #### [facility] [address] [place] [address] eGFR-All Other Races >60 Normal >60 [facility] Comment on above: Result Comment: eGFR (Estimated [...] FP, BMP, HBSAG, PT, CBC, FERR #### [address] [phone] #### AHBCOT, SMTHS, CERULO, AHAVG, AHBSQ, AHCV1B, ANAS, MITOS, AFP, IGG #### [address] [place] [phone] #### LKM #### [facility] [address] [place] [address] Glucose [Mass/Vol] 111 mg/dL High 65-100 [facility] Comment on above: Performed By: #### H FP, BMP, HBSAG, PT, CBC, FERR #### [address] [phone] #### AHBCOT, SMTHS, CERULO, AHAVG, AHBSQ, AHCV1B, ANAS, MITOS, AFP, IGG #### [address] [phone] #### LKM #### [facility] [address] [place] [address] Potassium [Moles/Vol] 3.9 mmol/L Normal 3.5-5.0 [facility] Comment on above: Performed By: #### H FP, BMP, HBSAG, PT, CBC, FERR #### [address] [phone] #### AHBCOT, SMTHS, CERULO, AHAVG, AHBSQ, AHCV1B, ANAS, MITOS, AFP, IGG #### [address] [place] [phone] #### LKM #### [address] [address] Sodium [Moles/Vol] 136 mmol/L Normal 132-148 [facility] Comment on above: Performed By: #### H FP, BMP, HBSAG, PT, CBC, FERR #### [address] [phone] #### AHBCOT, SMTHS, CERULO, AHAVG, AHBSQ, AHCV1B, ANAS, MITOS, AFP, IGG #### [address] [place] [phone] #### LKM #### [address] [phone] Urea nitrogen [Mass/Vol] 8 mg/dL Normal 8-25 [facility] Comment on above: Performed By: #### H FP, BMP, HBSAG, PT, CBC, FERR #### [address] [phone] #### AHBCOT, SMTHS, CERULO, AHAVG, AHBSQ, AHCV1B, ANAS, MITOS, AFP, IGG #### [place] [phone] #### LKM #### [facility] [address] [phone] CBCon 08-27-2021 Absolute nRBC <0.01 Normal <0.01 [facility] Comment on above: Performed By: #### H FP, BMP, HBSAG, PT, CBC, FERR #### [address] [phone] #### AHBCOT, SMTHS, CERULO, AHAVG, AHBSQ, AHCV1B, ANAS, MITOS, AFP, IGG #### [place] [phone] #### LKM #### [facility] [address] [phone] Erythrocyte distribution width (RBC) [Ratio] 13.0 % Normal 11.5-15.0 [facility] Comment on above: Performed By: #### H FP, BMP, HBSAG, PT, CBC, FERR #### [address] [phone] #### AHBCOT, SMTHS, CERULO, AHAVG, AHBSQ, AHCV1B, ANAS, MITOS, AFP, IGG #### [place] [phone] #### LKM #### [facility] [address] [phone] Hematocrit (Bld) [Volume fraction] 35.7 % Low 36.0-46.0 [facility] Comment on above: Performed By: #### H FP, BMP, HBSAG, PT, CBC, FERR #### [address] [phone] #### AHBCOT, SMTHS, CERULO, AHAVG, AHBSQ, AHCV1B, ANAS, MITOS, AFP, IGG #### [phone] [phone] #### LKM #### [facility] [address] [phone] Hemoglobin (Bld) [Mass/Vol] 11.7 g/dL Normal 11.5-15.5 [facility] Comment on above: Performed By: #### H FP, BMP, HBSAG, PT, CBC, FERR #### [address] [place] [phone] #### AHBCOT, SMTHS, CERULO, AHAVG, AHBSQ, AHCV1B, ANAS, MITOS, AFP, IGG #### [place] [phone] #### LKM #### [facility] [address] [phone] MCH 33.2 pG Normal 26.0-34.0 [facility] Comment on above: Performed By: #### H FP, BMP, HBSAG, PT, CBC, FERR #### [address] [phone] #### AHBCOT, SMTHS, CERULO, AHAVG, AHBSQ, AHCV1B, ANAS, MITOS, AFP, IGG #### [place] [phone] #### LKM #### [facility] [address] [phone] MCHC (RBC) [Mass/Vol] 32.8 g/dL Normal 30.5-36.0 [facility] Comment on above: Performed By: #### H FP, BMP, HBSAG, PT, CBC, FERR #### [address] [phone] #### AHBCOT, SMTHS, CERULO, AHAVG, AHBSQ, AHCV1B, ANAS, MITOS, AFP, IGG #### [address] [address] #### LKM #### [facility] [address] [place] [address] MCV (RBC) [Entitic vol] 101.4 fL High 80.0-100.0 [facility] Comment on above: Performed By: #### H FP, BMP, HBSAG, PT, CBC, FERR #### [address] [phone] #### AHBCOT, SMTHS, CERULO, AHAVG, AHBSQ, AHCV1B, ANAS, MITOS, AFP, IGG #### [place] [phone] #### LKM #### [place] [address] Platelet mean volume (Bld) [Entitic vol] 10.1 fL Normal 9.0-12.7 [facility] Comment on above: Performed By: #### H FP, BMP, HBSAG, PT, CBC, FERR #### [place] [phone] #### AHBCOT, SMTHS, CERULO, AHAVG, AHBSQ, AHCV1B, ANAS, MITOS, AFP, IGG #### [place] [phone] #### LKM #### [place] [phone] Platelets (Bld) [#/Vol] 116 10*3/uL Low 150-400 [facility] Comment on above: Performed By: #### H FP, BMP, HBSAG, PT, CBC, FERR #### [place] [phone] #### AHBCOT, SMTHS, CERULO, AHAVG, AHBSQ, AHCV1B, ANAS, MITOS, AFP, IGG #### [place] [phone] #### LKM #### [facility] [address] [place] [address] RBC (Bld) [#/Vol] 3.52 10*6/uL Low 3.90-5.20 [facility] Comment on above: Performed By: #### H FP, BMP, HBSAG, PT, CBC, FERR #### [place] [phone] #### AHBCOT, SMTHS, CERULO, AHAVG, AHBSQ, AHCV1B, ANAS, MITOS, AFP, IGG #### [place] [phone] #### LKM #### [place] [address] WBC (Bld) [#/Vol] 6.28 10*3/uL Normal 3.70-11.00 [facility] Comment on above: Performed By: #### H FP, BMP, HBSAG, PT, CBC, FERR #### [place] [phone] #### AHBCOT, SMTHS, CERULO, AHAVG, AHBSQ, AHCV1B, ANAS, MITOS, AFP, IGG #### [place] [phone] #### LKM #### [facility] [address] [place] [address] CNOVon 08-27-2021 CNOV Office Visit ([id number]) HIMME,RADHA ([id number]) 1990 F Date Time Provider Department 08/27/21 4:00 PM VICKY CEDILLO [id number] During your visit today, we recorded the [...] taking: Prednisone Active 20 MG PO Daily 05 23June 11, 2021 2:57pm) No current facility-administere d medications for this visit. Review Of Systems [...] No Asteri (more content not included)... Normal [facility] Ceruloplasminon 08-27-2021 Ceruloplasmin 20 mg/dL Normal 16-45 [facility] Comment on above: Performed By: #### H FP, BMP, HBSAG, PT, CBC, FERR #### [place] [phone] #### AHBCOT, SMTHS, CERULO, AHAVG, AHBSQ, AHCV1B, ANAS, MITOS, AFP, IGG #### [place] [phone] [place] [phone] #### LKM #### [facility] [address] [place] [address] Ferritinon 08-27-2021 Ferritin [Mass/Vol] 53.9 ng/mL Normal 14.7-205.1 [facility] Comment on above: Performed By: #### H FP, BMP, HBSAG, PT, CBC, FERR #### [place] [phone] #### AHBCOT, SMTHS, CERULO, AHAVG, AHBSQ, AHCV1B, ANAS, MITOS, AFP, IGG #### [place] [phone] [place] [phone] #### LKM #### [facility] [address] [facility] [place] [address] HISTORY PHYSICALon HISTORY PHYSICAL HNO ID: [id number] Author: Vicky Cedillo MD Service: ? Author [...] taking: Prednisone Active 20 MG PO Daily 05 23June 11, 2021 2:57pm) No current facility-administere d medications for this visit. Review Of Systems [...] right upper (more content not included)... Normal [facility] Hep B Core Ab,Totalon 2020 Hep B Core Ab,Total Negative Normal Negative [facility] Comment on above: Performed By: #### H FP, BMP, HBSAG, PT, CBC, FERR ####[place] [phone]#### AHBCOT, SMTHS, CERULO, AHAVG, AHBSQ, AHCV1B, ANAS, MITOS, AFP, IGG ####[place] [phone]#### LKM ####[address] [phone] Hep C Ab IA w/Confon 021 Hepatitis C Ab IA Negative Normal Negative [facility] Comment on above: Performed By: #### H FP, BMP, HBSAG, PT, CBC, FERR ####[place] [phone]#### AHBCOT, SMTHS, CERULO, AHAVG, AHBSQ, AHCV1B, ANAS, MITOS, AFP, IGG ####[place] [phone]#### LKM ####[facility] [id number] [place], [place] [phone] HepB SurfaceAb,Quanton 08-27 HepB SurfaceAb,Quant <8.00 Normal <8.00 [facility] Comment on above: Result Comment: NEGA TIVE Performed By: #### H FP, BMP, HBSAG, PT, CBC, FERR ####[address] [phone]#### AHBCOT, SMTHS, CERULO, AHAVG, AHBSQ, AHCV1B, ANAS, MITOS, AFP, IGG ####[facility] [place], [place] [phone]#### LKM ####[facility] [address] [place], [place] [phone] Hepatic Functn Panelon 08-27 Albumin [Mass/Vol] 4.1 g/dL Normal 3.5-5.0 [facility] Comment on above: Performed By: #### H FP, BMP, HBSAG, PT, CBC, FERR #### [place] [phone] #### AHBCOT, SMTHS, CERULO, AHAVG, AHBSQ, AHCV1B, ANAS, MITOS, AFP, IGG #### [facility] [address] [place] [address] #### LKM #### [facility] [address] [place] [address] ALP [Catalytic activity/Vol] 60 U/L Normal 34-123 [facility] Comment on above: Performed By: #### H FP, BMP, HBSAG, PT, CBC, FERR #### [place] [phone] #### AHBCOT, SMTHS, CERULO, AHAVG, AHBSQ, AHCV1B, ANAS, MITOS, AFP, IGG #### [place] [phone] #### LKM #### [place] [phone] ALT [Catalytic activity/Vol] 28 U/L Normal 0-45 [facility] Comment on above: Performed By: #### H FP, BMP, HBSAG, PT, CBC, FERR #### [place] [phone] #### AHBCOT, SMTHS, CERULO, AHAVG, AHBSQ, AHCV1B, ANAS, MITOS, AFP, IGG #### [place] [phone] #### LKM #### [place] [phone] AST [Catalytic activity/Vol] 38 U/L Normal 7-40 [facility] Comment on above: Performed By: #### H FP, BMP, HBSAG, PT, CBC, FERR #### [place] [phone] #### AHBCOT, SMTHS, CERULO, AHAVG, AHBSQ, AHCV1B, ANAS, MITOS, AFP, IGG #### [place] [phone] #### LKM #### [place] [phone] Bilirubin [Mass/Vol] 1.1 mg/dL Normal 0.2-1.3 [facility] Comment on above: Performed By: #### H FP, BMP, HBSAG, PT, CBC, FERR #### [place] [phone] #### AHBCOT, SMTHS, CERULO, AHAVG, AHBSQ, AHCV1B, ANAS, MITOS, AFP, IGG #### [place] [phone] #### LKM #### [place] [address] Bilirubin,Conjugated 0.3 mg/dL High <0.2 [facility] Comment on above: Performed By: #### H FP, BMP, HBSAG, PT, CBC, FERR #### [place] [phone] #### AHBCOT, SMTHS, CERULO, AHAVG, AHBSQ, AHCV1B, ANAS, MITOS, AFP, IGG #### [place] [phone] #### LKM #### [place] [phone] Protein [Mass/Vol] 7.1 g/dL Normal 6.0-8.4 [facility] Comment on above: Performed By: #### H FP, BMP, HBSAG, PT, CBC, FERR #### [place] [phone] #### AHBCOT, SMTHS, CERULO, AHAVG, AHBSQ, AHCV1B, ANAS, MITOS, AFP, IGG #### [place] [phone] #### LKM #### [place] [phone] Hepatitis A Ab IgGon 021 Hepatitis A Ab IgG Negative Normal Negative [facility] Comment on above: Result Comment: No s erological evidence of past exposure to Hepatitis A virus or hepatitis A vaccination. Should recent infection be suspected, repeat testing is suggested 3-4 weeks after this draw. Performed By: #### H FP, BMP, HBSAG, PT, CBC, FERR ####[place] [phone]#### AHBCOT, SMTHS, CERULO, AHAVG, AHBSQ, AHCV1B, ANAS, MITOS, AFP, IGG ####[facility] [place], [place] [phone]#### LKM ####[facility] [address] [place], [place] [phone] Hepatitis B Surf. Agon 08-27 Hepatitis B Surf. Ag Negative Normal Negative [facility] Comment on above: Performed By: #### H FP, BMP, HBSAG, PT, CBC, FERR #### [place] [phone] #### AHBCOT, SMTHS, CERULO, AHAVG, AHBSQ, AHCV1B, ANAS, MITOS, AFP, IGG #### [facility] [address] [place] [phone] #### LKM #### [facility] [address] [place] [address] IgGon 08-27-2021 IgG [Mass/Vol] 996 mg/dL Normal 700-1600 [facility] Comment on above: Performed By: #### H FP, BMP, HBSAG, PT, CBC, FERR ####[phone]#### AHBCOT, SMTHS, CERULO, AHAVG, AHBSQ, AHCV1B, ANAS, MITOS, AFP, IGG ####[facility] [place], [place] [phone]#### LKM ####[facility] [address] [place], [place] [phone] Liver-Kid Micro Abson 2020 Liver-Kid Micro Abs <1:20 Normal <1:20 [facility] Comment on above: Result Comment: (NOT E) INTERPRETIVE INFORMATION: Xkjae-Gqdlcv-Oeavyepzd Abs, IgG Liver-Kidney Microsome IgG antibody (anti-LKM), as detected by indirect immunofluorescent antibody (IFA) techniques, may be observed in patients with autoimmune hepatitis type 2 (AIH-2), AIH-2 associated with autoimmune luedvaaswftstaizkk-kirtssoigrx-kdtubfgogm dystrophy (APECED), viral hepatitis C or D, and some forms of drug-induced hepatitis. This IFA does not differentiate among the four types of LKM antibodies (LKM-1, LKM-2, LKM-3, and a fourth type that recognizes CY and CY antigens). Of these, anti-LKM-1 (cytochrome [id number]) IgG antibodies are considered specific for AIH-2. This test was developed and its performance characteristics determined by [facility]. It has not been cleared or approved by the [place] Food and Drug Administration. This test was performed in a CLIA certified laboratory and is intended for clinical purposes. Performed By: [facility] [address] [place] [id number] Geological Sample Tester: Aleida Green MD Performed By: #### H FP, BMP, HBSAG, PT, CBC, FERR ####[address] [phone]#### AHBCOT, SMTHS, CERULO, AHAVG, AHBSQ, AHCV1B, ANAS, MITOS, AFP, IGG ####[address] [phone]#### LKM ####[address] [phone] Mitochondrial Ab Scron 08-27 Mitochondrial Ab Scr Negative Normal Negative [facility] Comment on above: Result Comment: Norm al range : negative at a 1:20 serum dilution. Performed By: #### H FP, BMP, HBSAG, PT, CBC, FERR ####[address] [phone]#### AHBCOT, SMTHS, CERULO, AHAVG, AHBSQ, AHCV1B, ANAS, MITOS, AFP, IGG ####[address] [phone]#### LKM ####[facility] [id number] [place], [place] [phone] Protimeon 08-27-2021 PT INR 1.3 Normal 0.9-1.3 [facility] Comment on above: Result Comment: Opal min K Antagonist (VKA) Therapeutic Range: INR 2 to 3 (Target INR of 2.5) Note: For patients treated with VKA drugs, such as warfarin, the [employer] 2012 Guideline recommends [...] to 3.5 (target INR of 3). Ruthann GH, et al. Chest 2012, 141:7S-47S Juan RA, et al. JACC 2017, 70: 252-289 Performed By: #### H FP, BMP, HBSAG, PT, CBC, FERR #### [place] [address] #### AHBCOT, SMTHS, CERULO, AHAVG, AHBSQ, AHCV1B, ANAS, MITOS, AFP, IGG #### [facility] [address] [place], [place] [address] #### LKM #### [facility] [address] [place] [address] PT Sec 13.7 sec High 9.7-13.0 [facility] Comment on above: Performed By: #### H FP, BMP, HBSAG, PT, CBC, FERR #### [place] [address] #### AHBCOT, SMTHS, CERULO, AHAVG, AHBSQ, AHCV1B, ANAS, MITOS, AFP, IGG #### [facility] [address] [place], [place] [address] #### LKM #### [facility] [address] [place] [address] Smooth Muscle Ab Scron 08-27 Smooth Muscle Ab Scr Negative Normal Negative [facility] Comment on above: Result Comment: Norm al range : negative at a 1:20 serum dilution. Performed By: #### H FP, BMP, HBSAG, PT, CBC, FERR ####[facility] [place], [place] [phone]#### AHBCOT, SMTHS, CERULO, AHAVG, AHBSQ, AHCV1B, ANAS, MITOS, AFP, IGG ####[facility] [address] [place], [place] [phone]#### LKM ####[facility] [address] [place], [place] [phone] COVID Quick Testingon 2020 Result Negative [facility] Other CNOVon 08-10-2021 CNOV Office Visit (BECKY) RADHA HINES ([id number]) 1990 F Date Time Provider Department 08/10/21 [...] hypertension. She is not met a transplant ticket dispatcher yet, although her primary care physician is [...] She works for [employer]. Patient presented to [facility] at beginning of May for RUE ecchymosis. She was noted to have elevated LFTs and advised to stop drinking alcohol. She established care with PCP Elen Deshpande MD who instructed her to go to [facility] ER for jaundice and RUQ pain. Upon admit to [facility] on 06/08/2021, labs revealed a significant [...] H/O Hepatitis:No H/O Cirrhosis:Yes Family history of pancreas/liver/bilia ry cancer:No PAST MEDICAL HISTORY: No past medical history on file. PAST SURGICAL HISTORY: No past surgical history on file. FAMILY HISTORY: No family history on file. SOCIAL HISTORY: Social History Tobacco Use - Smoking status: Not on file Substance Use Topics - Alcohol use: Not on file - Drug use: Not on file COMPLETE REVIEW OF SYSTEMS Constitutional--Nega tive for fevers, chills, fatigue. No unintentional weight loss Cardiovascular--Nega tive for orthopnea, PND Gastrointestinal--Se e HPI Pulmonary--Negative for intermittent dyspnea cough or [...] Neuro: Gait normal. Sensation grossly intact. IMAGING: [facility]) 06/08/2021 CT A/P (Images Uploaded/Report Scanned) 06/11/2021 MRIAbdomen (Images Uploaded/Report Scanned) 06/08/2021 US RUQ- cirrhotic liver, ascites, and gallbladder wall thickening; no 07/06/2021 HIDA- normal LABS (more content not included)... Normal [facility] Pro CNPNon 2021 CNPN Telephone ([facility]) RADHA HINES ([id number]) 1990 F Date Time Provider Department 07/24/21 ULICES GRAYSON [facility] During your visit today, we recorded the following information about you: Susan Hawley RN 2021 3:07 PM Signed Call to patient to evaluate reason for consult with Dr. Grayson and request records for review. Received VM. Left detailed message. Call to Dr. Rodney Castañeda (referrig physician) for records. Received VM. Left detailed message. Fax request for records sent, as well to [phone] Susan Hawley RN 2021 4:07 PM Signed Received return call from patient. Referral from Dr. Rodney Castañeda for transplant?? Faxed request for records and imaging reports to Dr. Castañeda to verify reason for consult. PCP: Shaikh Jeramy MD [address] [phone] Freida Deluca Pss 07/25/2021 10:[address] Jeramy Zhao's nurse, called regarding records. Stated records were sent last week-our office did not receive. Confirmed fax number and she will send them over today. Freida Deluca [facility] Susan Hawley RN 07/26/2021 9:07 AM Signed Follow up call to patient. Cancelled her consult today, as our office has not received OSH records. Will call patient to reschedule once records are received and reviewed. Felecia Pelletier 07/27/2021 9:11 AM Signed Received reports from [facility]. CT Abdomen/Pelvis 06/08/2021 US Abdomen 06/08/2021 MRI Abdomen 06/10/2021 NM Hepatobilliary scan 07/06/2021 Reports scanned and imaging downloaded. Please review. Susan Hawley RN 07/30/2021 2:32 PM Signed Hepatobiliary Surgery Consult OSH records received: 30 yr old female who presented to [facility] at beginning of May for RUE ecchymosis. She was noted to have elevated LFTs and advised to stop drinking alcohol. She established care with PCP Elen Deshpande MD who instructed her to go to [facility] ER for jaundice and RUQ pain. Upon admit to [facility] on 06/08/2021, labs revealed a significant [...] 11 Received Records From: 06/08/2021 Hospitalist HANDP ([facility]) 06/09/2021 GI Consult Note (Dr. Castañeda) 06/11/2021 Discharge Summary ([facility]) Imaging:[facility]) 06/08/2021 CT A/P (Images Uploaded/Report Scanned) [...] Signed Patient is scheduled on 08/10/2021 in [place] to see Dr. Grayson. On 08/27/2021 she is scheduled to see Dr. Cedillo at [facility]. She is aware of both appointments. 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 [3602] Consult [173] Problem List As Of Date: 2021 (None) Encounter Status:Closed by SUSAN HAWLEY RN on 08/01/21 Normal [facility] Vital Signs Date Time Vital Sign Value Performing Clinician Facility 04-16-2024 17:35-0400 Body height 157.48 cm [facility] 04-16-2024 17:35-0400 Body mass index (BMI) [Ratio] 25.8 kg/m2 [facility] 04-16-2024 17:35-0400 Body temperature 98.7 [degF] [facility] 04-16-2024 17:35-0400 Body weight 64.06 kg [facility] 04-16-2024 17:35-0400 Heart rate 88 /min [facility] 04-16-2024 17:35-0400 Respiratory rate 16 /min [facility] 04-16-2024 17:35-0400 SaO2% (BldA) [Mass fraction] 98 % [facility] 08-08-2023 10:33-0400 Diastolic blood pressure 59 mm[Hg] MD Shaikh Deshpande Work Phone: [facility] 08-08-2023 10:33-0400 Heart rate 71 /min MD Shaikh Deshpande Work Phone: [facility] 08-08-2023 10:33-0400 Respiratory rate 16 /min MD Shaikh Deshpande Work Phone: [facility] 08-08-2023 10:33-0400 SaO2% (BldA) [Mass fraction] 100 % MD Shaikh Deshpande Work Phone: [facility] 08-08-2023 10:33-0400 Systolic blood pressure 93 mm[Hg] MD Shaikh Deshpande Work Phone: [facility] 08-08-2023 08:33-0400 Body height 157.48 cm MD Shaikh Deshpande Work Phone: [facility] 08-08-2023 08:33-0400 Body temperature 97.9 [degF] MD Shaikh Deshpande Work Phone: [facility] 08-08-2023 08:33-0400 Body weight 59.42 kg MD Shaikh Deshpande Work Phone: [facility] 06-30-2023 15:30-0400 Body height 157.48 cm Imad Asaad Other [facility] Other 06-30-2023 15:30-0400 Body mass index (BMI) [Ratio] 23.77 kg/m2 Imad Asaad Other [facility] Other 06-30-2023 15:30-0400 Body weight 58.97 kg Imad Asaad Other [facility] Other 06-30-2023 15:30-0400 Diastolic blood pressure 70 mm[Hg] Imad Asaad Other [facility] Other 06-30-2023 15:30-0400 Systolic blood pressure 104 mm[Hg] Imad Asaad Other [facility] Other 06-16-2023 16:00-0400 Body height 157.48 cm Ann Perera Other [facility] Other 06-16-2023 16:00-0400 Body mass index (BMI) [Ratio] 23.99 kg/m2 Ann Perera Other [facility] Other 06-16-2023 16:00-0400 Body temperature 98.1 [degF] Ann Perera Other [facility] Other 06-16-2023 16:00-0400 Body weight 59.51 kg Ann Dilma Other [facility] Other 06-16-2023 16:00-0400 Diastolic blood pressure 60 mm[Hg] Ann Dilma Other [facility] Other 06-16-2023 16:00-0400 Respiratory rate 18 /min Ann Dilma Other [facility] Other 06-16-2023 16:00-0400 SaO2% (BldA) [Mass fraction] 100 % Ann Dilma Other [facility] Other 06-16-2023 16:00-0400 Systolic blood pressure 101 mm[Hg] Ann Dilma Other [facility] Other 01-18-2023 09:55-0500 Body height 157.48 cm Charlene Baileymond Other [facility] Other 01-18-2023 09:55-0500 Body mass index (BMI) [Ratio] 25.97 kg/m2 Charlene Baileymond Other [facility] Other 01-18-2023 09:55-0500 Body temperature 99.8 [degF] Charelne Baileymond Other [facility] Other 01-18-2023 09:55-0500 Body weight 64.41 kg Charlene Baileymond Other [facility] Other 01-18-2023 09:55-0500 Diastolic blood pressure 68 mm[Hg] Charlene Graciela Other [facility] Other 01-18-2023 09:55-0500 SaO2% (BldA) [Mass fraction] 99 % Charlene Owens Other [facility] Other 01-18-2023 09:55-0500 Systolic blood pressure 108 mm[Hg] Charlene Owens Other [facility] Other 10-24-2022 18:10-0500 Body height 157.48 cm Sydnee Kong Other [facility] Other 10-24-2022 18:10-0500 Body mass index (BMI) [Ratio] 23.77 kg/m2 Sydnee Kong Other [facility] Other 10-24-2022 18:10-0500 Body temperature 97.8 [degF] Sydnee Kong Other [facility] Other 10-24-2022 18:10-0500 Body weight 58.97 kg Sydnee Kong Other [facility] Other 10-24-2022 18:10-0500 Diastolic blood pressure 71 mm[Hg] Sydnee Kong Other [facility] Other 10-24-2022 18:10-0500 Respiratory rate 16 /min Sydnee Kong Other [facility] Other 10-24-2022 18:10-0500 SaO2% (BldA) [Mass fraction] 100 % Sydnee Kong Other [facility] Other 10-24-2022 18:10-0500 Systolic blood pressure 116 mm[Hg] Sydnee Kong Other [facility] Other 04-16-2022 17:00-0400 Body height 157.48 cm Rodney Castañeda Other [facility] Other 04-16-2022 17:00-0400 Body mass index (BMI) [Ratio] 25.6 kg/m2 Rodney Castañeda Other [facility] Other 04-16-2022 17:00-0400 Body weight 63.5 kg Rodney Castañeda Other [facility] Other 08-21-2021 17:00-0400 Body height 157.48 cm Rodney Castañeda Other [facility] Other 08-21-2021 17:00-0400 Body mass index (BMI) [Ratio] 25.6 kg/m2 Rodney Castañeda Other [facility] Other 08-21-2021 17:00-0400 Body weight 63.5 kg Rodney Castañeda Other [facility] Other 08-15-2021 15:30-0400 Body height 157.48 cm Charlene Owens Other [facility] Other 08-15-2021 15:30-0400 Body mass index (BMI) [Ratio] 25.6 kg/m2 Charlene Owens Other [facility] Other 08-15-2021 15:30-0400 Body temperature 99 [degF] Charlene Owens Other [facility] Other 08-15-2021 15:30-0400 Body weight 63.5 kg Charlene Owens Other [facility] Other 08-15-2021 15:30-0400 Respiratory rate 18 /min Charlene Owens Other [facility] Other 08-15-2021 15:30-0400 SaO2% (BldA) [Mass fraction] 98 % Charlene Owens Other [facility] Other Encounters Encounter Date Encounter Type Care Provider Facility Start: 04-16-2024 End: 04-16-2024 ambulatory [facility] Work Phone: Start: 04-16-2024 End: 04-16-2024 Patient encounter procedure [facility] Work Phone: Start: 01-28-2024 End: 01-28-2024 ambulatory SHAIKH JERAMY Not Available Start: 10-23-2023 End: 10-23-2023 ambulatory RAZA RAUSCH Not Available Start: 09-05-2023 End: 09-05-2023 ambulatory Imad Asaad Other [facility] Other Start: 09-05-2023 Telephone encounter Imad Asaad [facility] [employer] Start: 08-08-2023 End: 08-08-2023 ambulatory Imad Asaad Facility:[facility] Start: 08-08-2023 End: 08-08-2023 Admission to same day surgery center MD Shaikh Deshpande Work Phone: [facility] Work Phone: Start: 08-08-2023 End: 08-08-2023 ambulatory MD Shaikh Deshpande Work Phone: [facility] Work Phone: Start: 07-30-2023 End: 07-30-2023 ambulatory Imad Asaad Other [facility] Other Start: 07-30-2023 Telephone encounter Imad Asaad [facility] Start: 06-30-2023 End: 06-30-2023 ambulatory Imad Asaad Other [facility] Other Start: 06-30-2023 Office outpatient visit 25 minutes Imad Asaad [facility] Start: 06-16-2023 End: 06-16-2023 Patient encounter procedure MD Shaikh Deshpande Work Phone: [facility] Work Phone: Start: 06-16-2023 End: 06-16-2023 ambulatory Shaikh Jeramy [facility] Other Start: 06-16-2023 Office outpatient visit 15 minutes Ann Perera [facility] Start: 04-15-2023 End: 04-16-2023 ambulatory SHAIKH Meka DESHPANDE Facility:[facility] Start: 02-14-2023 End: 02-15-[address] RODNEY JOHN Facility:[facility] Start: 01-18-2023 End: 01-18-2023 ambulatory Charlene Oewns Other [facility] Other Start: 01-18-2023 Office outpatient visit 15 minutes Charlene Owens [facility] Start: 01-06-2023 End: 01-07-[address] ASHLEY HOFFMAN . Facility:[facility] Start: 11-25-2022 End: 11-26-2022 ambulatory SHAIKH Meka DESHPANDE Facility:[facility] Start: 11-21-2022 End: 11-21-[address] ASHLEY HOFFMAN . Facility:[facility] Start: 10-24-2022 End: 10-24-2022 ambulatory Sydnee Kong Other [facility] Other Start: 10-24-2022 Office outpatient visit 25 minutes Sydnee Kong [facility] Start: 10-15-2022 End: 10-16-2022 ambulatory SHAIKH Meka DESHPANDE Facility:[facility] Start: 08-13-2022 End: 08-14-2022 ambulatory SHAIKH Meka DESHPANDE Facility:[facility] Start: 05-08-2022 End: 05-08-2022 ambulatory Rodney Castañeda Other [facility] Other Start: 05-08-2022 Telephone encounter Rodney Castañeda [facility] Start: 04-23-2022 End: 04-23-2022 ambulatory Rodney Castañeda Other [facility] Other Start: 04-23-2022 Telephone encounter Rodney Castañeda [facility] Start: 04-16-2022 End: 04-16-2022 ambulatory Rodney Castañeda Other [facility] Other Start: 04-16-2022 Office outpatient visit 25 minutes Rodney Castañeda [facility] Start: 03-04-2022 End: 03-04-2022 ambulatory Rodney Castañeda Other [facility] Other Start: 03-04-2022 Telephone encounter Rodney Castañeda [facility] Start: 12-24-2021 End: 12-24-2021 ambulatory Rodney Castañeda Other [facility] Other Start: 12-24-2021 Telephone encounter Rodney Castañeda [facility] Start: 12-14-2021 End: 12-14-2021 ambulatory Rodney Castañeda Other [facility] Other Start: 12-14-2021 Telephone encounter Rodney Castañeda [facility] Start: 08-21-2021 Office outpatient visit 15 minutes Rodney Castañeda [facility] Start: 08-15-2021 Office outpatient visit 15 minutes Charlene Owens [facility] Procedures Date Procedure Procedure Detail Performing Clinician Start: 04-16-2024 Quick Strep (POC) Start: 08-08-2023 Esophagogastroduodenoscopy MD Shaikh Deshpande Work Phone: Start: 06-16-2023 X-ray of right foot MD Shaikh Deshpande Work Phone: Plan of Treatment Date Care Activity Detail Author Start: 08-08-2023 [facility] Patient Education Esophageal Varices (DC) [facility] Work Phone: Immunizations Immunization Date Immunization Notes Care Provider Roro bey 01-19-2020 Rocephin 500 mg Charlene reynolds Other [facility] Other Payers Date Payer Category Payer Self-pay [id number] 1990 Unknown [id number] 2.16.84 [id number] 1990 Unknown [id number] 2.16.84 [id number] 1990 Unknown [id number] 2.16.84 [id number] 1988 Unknown [id number] 2.16.84 [id number] 1988 Unknown [id number] 2.16.84 [id number] 1988 Unknown [id number] 2.16.84 [id number] 1990 Unknown [id number] 2.16.84 [id number] 1988 Unknown [id number] 2.16.84 [id number] 1988 Unknown [id number] 2.16.840 .[id number] 1959 Unknown [id number] 2.16. [id number] 1959 Unknown [id number] 2.16.8 [id number] Unknown [id number] 2.16.8 [id number] Unknown [id number] 2.16.8 [id number] Unknown HCAP/HFA/FAP Active [id number] Social History Date Type Detail Facility Unknown if ever smoked [facility] Other Sex Assigned At Sex Assigned At Bir th [employer] [facility] Other Start: 08-08-2023 End: 04-16-2024 Tobacco smoking status NHIS Smoker (finding) [facility] Start: 1990 Sex Assigned At Female [facility] Goals Date Patient Goal Desired Activity /State Clinical Notes 08-10-2021 to 08-08-2023 Note Date & Type Note Facility 08-08-2023 Procedure note [facility] 06-30-2023 Evaluation note Encounter Date Diagnosis Assessment Notes Jun, Alcoholic cirrhosis of liver with ascites (ICD-10 - K70.31) Jun, Right upper quadrant abdominal pain (ICD-10 - R10.11) Jun, Other ascites (ICD-10 - R18.8) [facility] Other 07-31-2023 Evaluation note* Encounter Date Diagnosis [...] right foot compared to the left foot. [facility] Other 03-04-2023 Evaluation note* Encounter Date Diagnosis [...] Jan, Communicable disease contact (ICD-10 - Z20.9) [facility] Other 12-08-2022 Evaluation note* Encounter Date Diagnosis [...] understanding and is agreeable to treatment plan [facility] Other 06-22-2022 Evaluation note* Encounter Date Diagnosis Assessment Notes Treatment Notes Treatment Clinical Notes Apr, Abdominal pain (ICD-10 - R10.9) [facility] Other 05-31-2022 Evaluation note* Encounter Date Diagnosis Assessment Notes Treatment Notes Treatment Clinical Notes March, Alcoholic cirrhosis of liver with ascites (ICD-10 - K70.31) March, Abnormal ultrasound (ICD-10 - R93.89) CT ABD/ PELVIS W/ CONTRAST March, Abdominal pain (ICD-10 - R10.9) START TRIAL OF LEVSIN S/L BID OBTAIN LABS AND LIVER US FROM [facility] CT ABD/ PELVIS W/ AND W/0 CONTRAST TRIPHASIC ATTN LIVER [facility] Other 02-07-2022 Evaluation note* Encounter Date Diagnosis Assessment Notes Treatment Notes Treatment Clinical Notes Dec, Alcoholic cirrhosis of liver with ascites (ICD-10 - K70.31) [facility] Other 01-28-2022 Evaluation note* Encounter Date Diagnosis Assessment Notes Treatment Notes Treatment Clinical Notes Nov, Alcoholic cirrhosis of liver with ascites (ICD-10 - K70.31) [facility] Other 01-10-2022 NoteHNO ID: [id number] Author: Vicky Cedillo MD Service: ? Author [...] No history of dysuria, frequency or incontinence ANIME ARTIST: Negative for abnormal vaginal bleeding, abnormal vaginal [...] sludge was identified. 3. (more content not included)...[facility]10-05-2021 Evaluation note* Encounter Date Diagnosis Assessment Notes Treatment Notes Treatment Clinical Notes Aug, Alcoholic cirrhosis of liver with ascites (ICD-10 - K70.31) Cirrhosis home care material was printed CONTINUE TO AVOID ALCOHOL Aug, Abdominal pain (ICD-10 - R10.9) [facility] Other 09-29-2021 Evaluation note* Encounter Date Diagnosis [...] Patient care instructions given in writting by [facility] Care At Home document. [facility] Other 09-24-2021 NoteHNO ID: [id number] Author: Ulices Grayson MD Service: ? Author [...] hypertension. She is not met a transplant ticket dispatcher yet, although her primary care physician is [...] She works for [employer]. Patient presented to [facility] at beginning of May for RUE ecchymosis. She was noted to have elevated LFTs and advised to stop drinking alcohol. She established care with PCP Elen Deshpande MD who instructed her to go to [facility] ER for jaundice and RUQ pain. Upon admit to [facility] on 06/08/2021, labs revealed a significant [...] Neuro: Gait normal. Sensation grossly intact. IMAGING: [facility]) 06/08/2021 CT A/P (Images Uploaded/Report Scanned) 06/11/2021 MRIAbdomen (Images Uploaded/Report Scanned) 06/08/2021 US RUQ- cirrhotic liver, ascites, and gallbladder wall thickening; no 07/06/2021 HIDA- normal LABS: Nl LFTs IMPRESSION: RUQ pain PLAN: Radha Hines is a very pleasant 31 year old female, primary care physician Rodney Castañeda Jr, , referred to me by Dr. Castañeda right upper quadrant abdominal pain. Patient was recently worked up for several issues including abdominal pain, asci (more content not included)...[facility] noteNo InformationNort [employer] Other Evaluation noteNo assessment information available [facility] Work Phone: Evaluation note* Diagnosis Onset Date Resolution Status Sore throat noneactive [facility] Work Phone: History and physical note Author Vicky Cedillo [facility] August 08, 2023 10:00am Note Date/Time August 08, 2023 9:56am [facility] [address] [place] [address] Gastroenterology H&P Signed Patient: Radha Hines MR#: [id number] : 1990 Acct:[id number] Age/Sex: 33 / F Adm Date: 3 Loc: Room: Type: [facility] Attending Dr: Vicky Cedillo MD Copies [...] signed by Vicky Cedillo MD> 08/08/23 1000 [facility] Work Phone: Hisreb[facility] general Narrative - Reported* Type Description Date Medical History EtOH cirrhosis Medical History anxiety Medical History chronic depression Surgical History appendectomy Surgical History [facility] Hospitalization History see above [facility] Other Hisyoeo general Narrative - Reported* Type Description Date Medical History EtOH cirrhosis Medical History anxiety Surgical History appendectomy Surgical History [facility] Hospitalization History see above [facility] Other Hospital Discharge instructions Additional Instructions DISCHARGE [...] NOT operate machinery such as power tools, [employer] mowers, snow blowers, sewing machines, etc. for [...] problems. -Follow up with PCP. -Office number [phone]. [facility] Work Phone: Summary Purpose Family History Relationship Condition Age at Onset Recorded Date/T jolynn grandparent Malignant neoplasm of breast Unknown grandparent Malignant neoplasm of throat Unknown grandparent Malignant neoplasm of brain Unknown Advance Directives Advance Directive Response Recorded Date/ Time Advance Directives No May 08 2:58pm Chief Complaint and Reason for Visit Chief Complaint M79.671 Cirrhosis Chief Complaint Sore throat, eye irr itation Reason for Visit Sore throat Additional Source Comments INFORMATION SOURCE (unrecogn ized section and content) DATE CREATED AUTHOR 02/06/2022 [facility] DATE CREATED AUTHOR AUTHOR'S ORGANIZ ATION 04/25/2023 [facility] DATE CREATED AUTHOR AUTHOR'S ORGANIZ ATION 08/22/2023 [facility] DATE CREATED AUTHOR AUTHOR'S ORGANIZ ATION 01/30/2024 [facility] EPIC REASON FOR VISIT (unrecogniz ed [...] content) Team Status: Active Member Role Status Dates Shaikh Jeramy MD Primary Care Provider Active Team Status: Inactive Member Role Status Madison Deshpande MD Primary Care Provider Active Ann Perera APRN Attending Provider Active Team Status: Inactive Member Role Status Dates Shaikh Jeramy MD Primary Care Provider Active Vicky Cedillo MD Attending Provider Active Team Status: Inactive Member Role Status Dates Shaikh Jeramy MD Primary Care Provider Active Start: April 16, 2024 End: April 16, 2024 Ann Perera APRN Attending Provider Active Start: April 16, 2024 End: April 16, 2024 Goals (unrecognized section and content) Goals may be documented in a n alternate section FOR RECORDS PERTAINING TO PATIENTS WHO ARE [...] BE BASED ON THE PRIMARY CLINICAL RECORDS. [facility]. provides no warranty or guarantee of the accuracy or completeness of information in this document.
--- NOTE | 2024-05-01 10:07 | US_ITS ---
The [address] [address] Patient Name: ROCIO RDZ MRN: [id number] date: 1990 Sex: F Assigned Patient Location: US Current Patient Location: Accession/Order Number: [id number] Exam Date: 05/01/2024 10:15 Report Date: 05/03/2024 08:34 At the request of: SHAIKH SURAJ Procedure: US right upper quadrant EXAMINATION: US right upper quadrant HISTORY: RUQ PAIN R10.11 COMPARISON: Ultrasound right upper quadrant 01/03/2024 TECHNIQUE: Transabdominal evaluation of the right upper quadrant. FINDINGS: LIVER: Small liver with nodular margins. Multiple dilated vessels seen within hilum. Small amount of adjacent free fluid. PORTAL VEIN: Duplex Doppler demonstrates normal hepatopetal flow pattern with flow velocity averaging 22 cm/s. GALLBLADDER: No visible gallstones, wall thickening, or pericholecystic free fluid. Negative sonographic Carreon's sign. BILIARY: Common bile duct is upper limits of normal in diameter, 6 mm. PANCREASE: No visible mass, abnormal atrophy, or duct dilation. KIDNEY: No hydronephrosis. No visible mass or stones. Size: 10.8 x 6.1 x 5.6 cm US/US right upper quadrant IMPRESSION: 1. Small nodular liver suggestive of cirrhosis. 2. Perihepatic varices suggestive of portal hypertension. 3. Trace amount of free fluid. Electronically authenticated by: KYLE BENAVIDES Date: 05/03/2024 08:34
== END 2024-05-01 10:05 | disposition home or self-care (01) ==
LOC: US 10:04
PROVIDERS: PCP Internal Medicine; Visit Provider Internal Medicine
DX: R10.11 Right upper quadrant pain (principal)
CPT/HCPCS: 76705

== ENCOUNTER 2024-10-20 15:02 | Outpatient (OUT) | payer OTHER, SELFPAY ==
[2024-10-20 15:18] LABS: Basophils Percent Auto 0.3 % (0.2-2.0); Eosinophils Absolute Auto 0.2 10^3/uL (0.0-0.7); Eosinophils Percent Auto 2.8 % (0.9-7.0); Hematocrit 38.6 % (36.0-48.0); Hemoglobin 12.8 g/dL (12.0-16.0); Immature Granulocytes Abs Auto 0.02 10^3/uL (0.00-0.03); Immature Granulocytes Pct Auto 0.3 % (0.0-0.5); Lymphocytes Absolute Auto 2.9 10^3/uL (1.2-3.8); Lymphocytes Percent Auto 37.9 % (20.5-60.0); Mean Corpuscular HGB Conc 33.2 g/dL (29.9-35.2); Mean Corpuscular Hemoglobin 30.9 pg (26.7-34.0); Mean Corpuscular Volume 93.2 fL (81.0-99.0); Mean Platelet Volume 9.1 fL (9.5-13.5); Monocytes Absolute Auto 0.4 10^3/uL (0.3-0.8); Monocytes Percent Auto 5.4 % (1.7-12.0); Neutrophils Absolute Auto 4.1 10^3/uL (1.4-6.5); Neutrophils Percent Auto 53.3 % (43.0-75.0); Platelet Count 153 10^3/uL (150-450); Red Blood Count 4.14 10^6/uL (4.20-5.40); Red Cell Distribution Width 12.6 % (11.0-15.0); White Blood Count 7.6 10^3/uL (4.0-11.0)
[2024-10-20 15:55] LABS: Alanine Aminotransferase 27 U/L (14-59); Albumin Globulin Ratio 1.1; Albumin Level 3.7 g/dL (3.4-5.0); Alkaline Phosphatase 46 U/L (46-116); Aspartate Amino Transferase 19 U/L (15-37); BUN Creatinine Ratio 16.2; Bilirubin Total 0.5 mg/dL (0.2-1.0); Calcium 9.1 mg/dL (8.5-10.1); Carbon Dioxide 26.6 mmol/L (21.0-32.0); Chloride 104 mmol/L (98-107); Estimated GFR (African America >60 (>=60 mL/min/1.73m^2); Estimated GFR (Non-African Ame >60 (>=60 mL/min/1.73m^2); Globulin 3.3 g/dL; Glucose 127 mg/dL (74-106); Potassium 3.6 mmol/L (3.5-5.1); Sodium 140 mmol/L (136-145)
[2024-10-24 01:06] LABS: Vitamin B1 (Thiamine), Blood 172.2 nmol/L (66.5-200.0)
== END 2024-10-20 15:03 | disposition home or self-care (01) ==
LOC: LAB 15:02
DX: F10.91 Alcohol use, unspecified, in remission (principal); R53.82 Chronic fatigue, unspecified
CPT/HCPCS: 36415; 80053; 82306; 82746; 82747; 84425; 85025

== ENCOUNTER 2024-10-25 15:09 | Outpatient (OUT) | payer OTHER, SELFPAY ==
[2024-10-25 16:03] LABS: Percent Iron Saturation 17.1 %
[2024-10-25 21:29] LABS: Internal Control Within Normal Limits; Occult Blood Negative
[2024-10-27 04:07] LABS: Vitamin B12 793 pg/mL (232-1245)
[2024-10-27 05:07] LABS: Transferrin 278 mg/dL (192-364)
== END 2024-10-25 15:10 | disposition home or self-care (01) ==
LOC: LAB 15:09
PROVIDERS: Visit Provider Nurse Practitioner Family
DX: D64.9 Anemia, unspecified (principal)
CPT/HCPCS: 36415; 82607; 82728; 83540; 83550; 84466; G0328

== ENCOUNTER 2025-05-11 19:41 | Outpatient (REF) | payer OTHER, SELFPAY ==
--- OUTSIDE RECORDS SUMMARY | 2025-05-11 16:00 | XMS_ITS | Encounter Summary ---
Author Organization [facility] Address [address] [place] [address] Care Team Providers Care Product Developer Name Role Phone Copeland, Radha KITCHEN AND BATH DESIGNER Unavailable [phone] Vicky Cedillo MD Unavailable Nav Mulligan LPC Unavailable Unavailable Unallocated, Noms Provider MD Primary Care Provi cooper Reason for Visit * Reason Comments Well Women Visit Encounter Details Date Type Department Care Team (Late st Contact Info) Description 05/11/2025 4:00 PM EDT Office Visit [facility] OB [address] [place] [address] Chalo Wick, DO [address] [facility] [address] [place], [place] [id number] Well woman exam with routine gynecological exam; Alcoholic cirrhosis, unspecified whether ascites present (HCC); Constipation, unspecified constipation type; Abnormal uterine bleeding (AUB) Social History Tobacco Use Types Packs/Day Years Used Date Smoking Tobacco: Every Day Cigarettes Passive Smoke Exposure: Current Smokeless Tobacco: Never Comments:6-10 Alcohol Use Standard Drinks/Week Comments Not Currently 0 (1 standard drink = 0.6 oz pure alcohol) caffeine intake: 3 cups per day coffee B1300 Health Literacy Answer Date Recor ded How often do you need to hav e someone help you when you read instructions, pamphlets, or other written material from your doctor or pharmacy? Never 11/30/2024 Social Connection and Isolat ion Panel [NHANES] Answer Date Recorded In a typical week, how many times do you talk on the phone with family, friends, or neighbors? More than three times a week 11/30/2024 How often do you get togethe r with friends or relatives? Three times a week 11/30/2024 How often do you attend chur ch or jainism services? Patient declined 11/30/2024 Do you belong to any clubs o r organizations such as sabianism groups, unions, fraternal or athletic groups, or school groups? Patient declined 11/30/2024 How often do you attend meet ings of the clubs or organizations you belong to? Patient declined 11/30/2024 Are you , , di vorced, , never , or living with a partner? 11/30/2024 AUDIT-C Answer Date Recorded Q1: How often do you have a drink containing alcohol? Never 11/30/2024 Q2: How many drinks containi ng alcohol do you have on a typical day when you are drinking? Patient does not drink Q3: How often do you have si x or more drinks on one occasion? Never 11/30/2024 Overall Financial Resource Strain (CARDIA) Answe r Date Recorded How hard is it for you to pa y for the very basics like food, housing, medical care, and heating? Somewhat hard 11/30/2024 PHQ-2 Answer Date Recorded Patient Health Questionnaire-2 Score 0 01/10/2025 [facility] - Occupational Stress Questionnaire Answer Date Recorded Do you feel stress - tense, restless, nervous, or anxious, or unable to sleep at night because your mind is troubled all the time - these days? Rather much 11/30/2024 Exercise Vital Sign Answer Date Recorde d On average, how many days pe r week do you engage in moderate to strenuous exercise (like a brisk walk)? 0 days 11/30/2024 On average, how many minutes do you engage in exercise at this level? 0 min 11/30/2024 Hunger Vital Sign Answer Date Recorded Within the past 12 months, y ou worried that your food would run out before you got the money to buy more. Never true 11/30/19 25 Within the past 12 months, t he food you bought just didn't last and you didn't have money to get more. Never true 11/30/2024 PRAPARE - Transportation Answer Date Re corded In the past 12 months, has l ack of transportation kept you from medical appointments or from getting medications? No 11/17 In the past 12 months, has l ack of transportation kept you from meetings, work, or from getting things needed for daily living? No 11/30/2024 Housing Stability Vital Sign Answer Hipolito e Recorded In the last 12 months, was t here a time when you were not able to pay the mortgage or rent on time? Patient declined 11/30/19 25 In the past 12 months, how m any times have you moved where you were living? 0 11/30/2024 At any time in the past 12 m [facility], were you homeless or living in a group home (including now)? No 11/30/2024 Education Answer Date Recorded What is the highest level of school you have completed or the highest degree you have received? Bachelor's degree (e.g., BA, AB, BS) 11/08/2024 Comments No Sex and Gender Information Value Date Recorded Sex Assigned at Female 06/19/2023 9:45 AM EDT Legal Sex Female 11:17 PM EDT Gender Identity Female 06/19/2023 9:45 AM EDT Sexual Orientation Not on file documented as of this encounter Last Filed Vital Signs Vital Sign Reading Time Taken Comments Blood Pressure 108/68 05/11/2025 4:22 PM EDT Pulse - - Temperature - - Respiratory Rate - - Oxygen Saturation - - Inhaled Oxygen Concentration - - Weight 64.3 kg (141 lb 12.8 oz) 05/11/2025 4:22 PM EDT Height - - Body Mass Index 26.79 12/07/2024 2:56 PM EST documented in this encounter Plan of Treatment Upcoming Encounters Date Type Department Care Team (Late st Contact Info) Description 05/26/2025 3:00 PM EDT Social Work [facility] [address] [place] [address] Nav Mulligan LPC 05/15/2026 4:00 PM EDT Office Visit [facility] OB [address] [facility] [place] [address] Chalo Wick DO [address] [place] [address] [place] [address] Scheduled Orders Name Type Priority Associated Diagnoses Orde r Schedule Pap Smear Pathology and Cytology Routine Well woman exam with routine gynecological exam Ordered: 05/11/2025 HPV DNA probe, amplified Microbiology Routine Well woman exam with routine gynecological exam Ordered: 05/11/2025 US abdomen limited liver Imaging Routine Alcoholic cirrhosis, unspecified whether ascites present (HCC) Expected: 05/11/2025, Expires: 05/11/2026 US Pelvis w/ TV Imaging Routine Abnormal uterine bleeding (AUB) Expected: 05/11/2025, Expires: 11/10/2025 documented as of this encounter Visit Diagnoses Diagnosis Well woman exam with routine gynecological exam Routine gynecological examination Alcoholic cirrhosis, unspecified whether ascites present (HCC) Constipation, unspecified constipation type Abnormal uterine bleeding (AUB) documented in this encounter Additional Health Concerns Assessment Noted Time PHQ-9 Depression Total Score: 0 01/10/20 3:07 PM EST documented as of this encounter Care Teams Product Developer Relationship Specialty Start Date End Date Unallocated, Noms Provider, [place] [address] PCP - General Family Medicine 01/18/25 Radha Copeland NP Nurse Practitioner Family Medicine 06/30/24 Vicky Cedillo MD Referring Physician Gastroenterology 11/08/24 Nav Mulligan LPC Agent Behavioral Health 12/22/24 documented as of this encounter
--- OUTSIDE RECORDS SUMMARY | 2025-05-11 19:46 | XMS_ITS | Encounter Summary ---
Author Organization [facility] Address [address] [place] [address] Care Team Providers Care Auto Phone Installer Name Role Phone Shaikh MAXI Deshpande Primary Care Provider [phone] Randal Simms MD Primary Care Provider [phone] Radha Copeland NP Unavailable [phone] Unallocated, Noms Provider Primary Care Provi cooper Vicky Cedillo MD Unavailable Nav Mulligan LPC Unavailable Unavailable Unallocated, Noms Provider Primary Care Provi cooper Reason for Visit * Reason Comments Med Refill Encounter Details Date Type Department Care Team (Late st Contact Info) Description 04/26[facility]2024 [facility] [address] [place] [address] Shaikh Deshpande MD [address] [place] [address] Alcoholic cirrhosis of liver without ascites (K70.30) Social History Tobacco Use Types Packs/Day Years Used Date Smoking Tobacco: Every Day Cigarettes Passive Smoke Exposure: Current Smokeless Tobacco: Never Comments:6-10 Alcohol Use Standard Drinks/Week Comments Not Currently 0 (1 standard drink = 0.6 oz pure alcohol) caffeine intake: 1-2 cups per day PHQ-2 Answer Date Recorded Patient Health Questionnaire-2 Score 0 01/28/2024 Comments Unknown Sex and Gender Information Value Date Recorded Sex Assigned at Female 06/19/2023 9:45 AM EDT Legal Sex Female 11:17 PM EDT Gender Identity Female 06/19/2023 9:45 AM EDT Sexual Orientation Not on file documented as of this encounter Miscellaneous Notes * Telephone Encounter - Shaikh Jeramy MD - 04/26/2024 8:53 AM EDT Approving, but needs appt for additional refills. documented in this encounter Plan of Treatment Upcoming Encounters Date Type Department Care Team (Late st Contact Info) Description 05/26/2025 3:00 PM EDT Social Work [facility] [address] [place] [address] Nav Mulligan LPC 05/15/2026 4:00 PM EDT Office Visit [facility] OB [address] [place] [address] Chalo Wick, DO [address] [place], [place] [id number] documented as of this encounter Visit Diagnoses Diagnosis Alcoholic cirrhosis of liver without ascites (K70.30) documented in this encounter Care Teams Auto Phone Installer Relationship Specialty Start Date End Date Shaikh Deshpande MD [address] [place] [address] PCP - General Internal Medicine 01/28/24 06/29/24 Randal Simms MD [address] [place] [address] PCP - General Family Medicine 06/30/24 09/05/24 Unallocated, Noms MD [address] [address] PCP - General Family Medicine 09/06/24 09/06/24 Unallocated, Jonathan Pena MD [address] [place] [address] PCP - General Family Medicine 01/18/25 Radha Copeland NP [address] [place] [address] Nurse Practitioner Family Medicine 06/30/24 Vicky Cedillo MD [address] [place] [address] Referring Physician Gastroenterology 11/08/24 Nav Mulligan LPC Import Export Manager Behavioral Health 12/22/24 documented as of this encounter
--- OUTSIDE RECORDS SUMMARY | 2025-05-11 19:46 | XMS_ITS | Encounter Summary ---
Author Organization [facility] Address [address] [place] [address] Care Team Providers Care Physician Practice Coordinator Name Role Phone Shaikh MAXI Deshpande Primary Care Provider [phone] Randal Simms MD Primary Care Provider [phone] Radha Copeland NP Unavailable [phone] Unallocated, Noms Provider Primary Care Provi cooper Vicky Cedillo MD Unavailable Nav Mulligan LPC Unavailable Unavailable Unallocated, Noms Provider Primary Care Provi cooper Encounter Details Date Type Department Care Team (Late st Contact Info) Description 05/03/2024 Clinisync Result Encounter [facility] External Department Unsolicited Shaikh Deshpande MD [address] [place] [address] Social History Tobacco Use Types Packs/Day Years Used Date Smoking Tobacco: Every Day Cigarettes Passive Smoke Exposure: Current Smokeless Tobacco: Never Comments:6-10 Alcohol Use Standard Drinks/Week Comments Not Currently 0 (1 standard drink = 0.6 oz pure alcohol) caffeine intake: 1-2 cups per day PHQ-2 Answer Date Recorded Patient Health Questionnaire-2 Score 0 05/04/2024 Comments Unknown Sex and Gender Information Value Date Recorded Sex Assigned at Female 06/19/2023 9:45 AM EDT Legal Sex Female 11:17 PM EDT Gender Identity Female 06/19/2023 9:45 AM EDT Sexual Orientation Not on file documented as of this encounter Functional Status * Over the past 2 weeks, how often have you been bothered by any of the following problems? Question Answer Date of Assessment Author Little interest or pleasure in doing things Not at all 05/04/2024 3:11 PM EDT Bella Mendoza M A Feeling down, depressed, or hopeless Not at all 05/04/2024 3:11 PM EDT Bella Mendoza M A Patient Health Questionnaire -2 Score 0 05/04/2024 3:11 PM EDT Bella Mendoza M A documented as of this encounter Plan of Treatment Upcoming Encounters Date Type Department Care Team (Late st Contact Info) Description 05/26/2025 3:00 PM EDT Social Work [facility] [address] [facility] [address] [place] [address] Nav Mulligan LPC 05/15/2026 4:00 PM EDT Office Visit [facility] OB [address] [facility] [place] [address] Chalo Wick, DO [address] [facility] [place] [address] documented as of this encounter Procedures Procedure Name Priority Date/Time Associated Diagnosis Comments US RIGHT UPPER QUADRANT 05/03/2024 8:34 AM EDT documented in this encounter Results * US RIGHT UPPER QUADRANT (05/03/2024 8:34 AM EDT) Anatomical Region Laterality Modality Other 05/03/2024 8:34 AM EDT Narrative 05/03/2024 8:37 AM EDT The [address] [address] Ultrasound Report Signed Patient: ROCIO HINES MR#: [id number] : 1990 Acct:[id number] Age/Sex: 33 / F ADM Date: 05/01/24 Loc: US Attending Dr: Shaikh Jeramy Cash Ordering Physician: Shaikh Shreya Deshpande Date of Service: 05/01/24 Procedure(s): US right upper quadrant Accession Number(s): [id number] cc: Shaikh Shreya Deshpande The [place] [address] Patient Name: ROCIO HINES MRN: [facility]:[id number] date: 1990 Sex: F Assigned Patient Location: US Current Patient Location: Accession/Order Number: [id number] Exam Date: 05/01/2024 10:15 Report Date: 05/03/2024 08:34 At the request of: SHAIKH JERAMY Procedure: US right upper quadrant EXAMINATION: US right upper quadrant HISTORY: RUQ PAIN R10.11 COMPARISON: Ultrasound right upper quadrant 01/03/2024 TECHNIQUE: Transabdominal evaluation of the right upper quadrant. FINDINGS: LIVER: Small liver with nodular margins. Multiple dilated vessels seen within hilum. Small amount of adjacent free fluid. PORTAL VEIN: Duplex Doppler demonstrates normal hepatopetal flow pattern with flow velocity averaging 22 cm/s. GALLBLADDER: No visible gallstones, wall thickening, or pericholecystic free fluid. Negative sonographic Carreon's sign. BILIARY: Common bile duct is upper limits of normal in diameter, 6 mm. PANCREASE: No visible mass, abnormal atrophy, or duct dilation. KIDNEY: No hydronephrosis. No visible mass or stones. Size: 10.8 x 6.1 x 5.6 cm US/US right upper quadrant IMPRESSION: 1. Small nodular liver suggestive of cirrhosis. 2. Perihepatic varices suggestive of portal hypertension. 3. Trace amount of free fluid. Electronically authenticated by: JUAN JOSE LANG Date: 05/03/2024 08:34 Dictated By: Juan Jose Lang M.D. Signed By: 05/03/2437 DD/ TD/TT: Hvac Design Mechanical Engineer: Procedure Note Radiology, Radiologist, - 05/03/2024 [place] [address] Ultrasound Report Signed Patient: ROCIO HINES [facility]#: [id number] : 1990Acct:[id number] Age/Sex: 33 / FADM Date: 05/01/24 Loc: US Attending Dr: Shaikh Jeramy Cash Ordering Physician: Shaikh Shreya Deshpande Date of Service: 05/01/24 Procedure(s): US right upper quadrant Accession Number(s): [id number] cc: Shaikh Shreya Deshpande [place] [address] Patient Name: ROCIO HINES MRN: [id number] date: 1990 Sex: F Assigned Patient Location: US Current Patient Location: Accession/Order Number: [id number] Exam Date: 05/01/2024 10:15 Report Date: 05/03/2024 08:34 At the request of: SHAIKH JERAMY Procedure: US right upper quadrant EXAMINATION: US right upper quadrant HISTORY: RUQ PAIN R10.11 COMPARISON: Ultrasound right upper quadrant 01/03/2024 TECHNIQUE: Transabdominal evaluation of the right upper quadrant. FINDINGS: LIVER: Small liver with nodular margins. Multiple dilated vessels seenwithin hilum. Small amount of adjacent free fluid. PORTAL VEIN: Duplex Doppler demonstrates normal hepatopetal flow patternwith flow velocity averaging 22 cm/s. GALLBLADDER: No visible gallstones, wall thickening, or pericholecysticfree fluid. Negative sonographic Carreon's sign. BILIARY: Common bile duct is upper limits of normal in diameter, 6 mm. PANCREASE: No visible mass, abnormal atrophy, or duct dilation. KIDNEY: No hydronephrosis. No visible mass or stones. Size: 10.8 x 6.1 x5.6 cm US/US right upper quadrant IMPRESSION: 1. Small nodular liver suggestive of cirrhosis. 2. Perihepatic varices suggestive of portal hypertension. 3. Trace amount of free fluid. Electronically authenticated by: JUAN JOSE LANG Date: 05/03/2024 08:34 Dictated By: Juan Jose Lang M.D. Signed By:05/03/2437 DD/ 3 TD/TT: Hvac Design Mechanical Engineer: us Shaikh Jeramy [facility] Final Result documented in this encounter Visit Diagnoses Not on filedocumented in this encounter Care Teams Physician Practice Coordinator Relationship Specialty Start Date End Date Shaikh Deshpande MD [address] [place] [address] PCP - General Internal Medicine 01/28/24 06/29/24 Randal Simms MD [address] [place] [address] PCP - General Family Medicine 06/30/24 09/05/24 Unallocated, Jonathan Pena MD [address] [place] [address] PCP - General Family Medicine 09/06/24 09/06/24 Unallocated, Jonathan Pena MD [address] [place] [address] PCP - General Family Medicine 01/18/25 Radha Copeland NP [address] [place] [address] Nurse Practitioner Family Medicine 06/30/24 Vicky Cedillo MD [address] [place] [address] Referring Physician Gastroenterology 11/08/24 Nav Mulligan LPC Statistics Manager Behavioral Health 12/22/24 documented as of this encounter
--- OUTSIDE RECORDS SUMMARY | 2025-05-11 19:46 | XMS_ITS | Encounter Summary ---
Author Organization [facility] Address [address] [place] [address] Care Team Providers Care Surfacer Operator Name Role Phone Shaikh MAXI Deshpande Primary Care Provider [phone] Shaikh MAXI Deshpande Primary Care Provider [phone] Randal Simms MD Primary Care Provider [phone] Radha Copeland [place] Unavailable [phone] Unallocated, Noms Provider Primary Care Provi cooper Vicky Cedillo MD Unavailable Nav Mulligan LPC Unavailable Unavailable Unallocated, Noms Provider Primary Care Provi cooper Encounter Details Date Type Department Care Team (Late st Contact Info) Description 04/21/2023 Abstract [facility] [address] [place] [address] Chalo Wick DO [address] [facility] [place] [address] Social History Tobacco Use Types Packs/Day Years Used Date Smoking Tobacco: Every Day Cigarettes Comments:6-10 Alcohol Use Standard Drinks/Week Comments Never 0 (1 standard drink = 0.6 oz pure alcohol) caffeine intake: 1-2 cups per day Comments Unknown Sex and Gender Information Value Date Recorded Sex Assigned at Female 06/19/2023 9:45 AM EDT Legal Sex Female 11:17 PM EDT Gender Identity Female 06/19/2023 9:45 AM EDT Sexual Orientation Not on file documented as of this encounter Plan of Treatment Upcoming Encounters Date Type Department Care Team (Late st Contact Info) Description 05/26/2025 3:00 PM EDT Social Work [facility] [address] [place] [address] Nav Mulligan LPC 05/15/2026 4:00 PM EDT Office Visit [facility] [address] [place] [address] Chalo Wick, DO [address] [place] [address] documented as of this encounter Visit Diagnoses Not on filedocumented in this encounter Care Teams Surfacer Operator Relationship Specialty Start Date End Date Shaikh Deshpande MD PCP - General Internal Medicine 09/17/23 01/27/24 Shaikh Deshpande MD [address] [place] [address] PCP - General Internal Medicine 01/28/24 06/29/24 Randal Simms MD [address] [place] [address] PCP - General Family Medicine 06/30/24 09/05/24 Unallocated, Rebecas MD Becky [address] [facility] [place] [address] PCP - General Family Medicine 09/06/24 09/06/24 Unallocated, MD Danielle Quinones [facility] [place] [address] PCP - General Family Medicine 01/18/25 Radha Copeland NP [address] [place] [address] Nurse Practitioner Family Medicine 06/30/24 Vicky Cedillo MD [address] [place] [address] Referring Physician Gastroenterology 11/08/24 Nav Mulligan LPC Grooming Salon Manager Behavioral Health 12/22/24 documented as of this encounter
--- OUTSIDE RECORDS SUMMARY | 2025-05-11 19:46 | XMS_ITS | Encounter Summary ---
Author Organization [facility] Address [address] [place] [address] Care Team Providers Care Avionics Supervisor Name Role Phone Shaikh MAXI Deshpande Primary Care Provider [phone] Randal Simms MD Primary Care Provider [phone] Radha Copeland NP Unavailable [phone] Unallocated, Noms Provider Primary Care Provi cooper Vicky Cedillo MD Unavailable Nav Mulligan LPC Unavailable Unavailable Unallocated, Noms Provider Primary Care Provi cooper Encounter Details Date Type Department Care Team (Late st Contact Info) Description 05/03/2024 Orders Only [facility] [address] [place] [address] Shaikh Deshpande MD [address] [place] [address] Social History Tobacco Use Types Packs/Day Years [...] Social Work [facility] [address] [facility] [address] [place] [address] Nav Mulligan LPC 05/15/2026 4:00 PM EDT Office Visit [facility] OB [address] [facility] [address] Chalo Wick DO [address] [facility] [address] [place], [place] [phone] documented as of this encounter Procedures Procedure Name Priority Date/Time Associated Diagnosis Comments US VENOUS DUPLEX RIGHT UPPER Routine 05/03/2024 8:41 AM EDT documented in this encounter Results * US VENOUS DUPLEX RIGHT UPPER (05/03/2024 8:41 AM EDT) Anatomical Region Laterality Modality Radiographic Susan ging us Shaikh Jeramy [facility] XR PROCEDURES Final Result documented in this encounter Visit Diagnoses Not on filedocumented in this encounter Care Teams Avionics Supervisor Relationship Specialty Start Date End Date Shaikh Deshpande MD [address] [place] [address] PCP - General Internal Medicine 01/28/24 06/29/24 Randal Simms MD [address] [place] [address] PCP - General Family Medicine 06/30/24 09/05/24 Unallocated, Jonathan Pena MD [address] [place] [address] PCP - General Family Medicine 09/06/24 09/06/24 Unallocated, Jonathan Pena MD [address] [place] [address] PCP - General Family Medicine 01/18/25 Radha Copeland NP [address] [place] [address] Nurse Practitioner Family Medicine 06/30/24 Vicky Cedillo MD [address] [place] [address] Referring Physician Gastroenterology 11/08/24 Nav Mulligan LPC Grinder Lap Behavioral Health 12/22/24 documented as of this encounter
--- OUTSIDE RECORDS SUMMARY | 2025-05-11 19:46 | XMS_ITS | Encounter Summary ---
Author Organization [facility] Address [address] [place] [address] Care Team Providers Care Wringer Operator Name Role Phone Shaikh MAXI Deshpande Primary Care Provider [phone] Shaikh MAXI Deshpande Primary Care Provider [phone] Randal Simms MD Primary Care Provider [phone] Radha Copeland PURCHASING COORDINATOR Unavailable [phone] Unallocated, Noms Provider Primary Care Provi cooper Vicky Cedillo MD Unavailable Nav Mulligan LPC Unavailable Unavailable Unallocated, Noms Provider Primary Care Provi cooper Encounter Details Date Type Department Care Team (Late st Contact Info) Description 12/04/2023 Orders Only [facility] [address] [place] [address] Shaikh Deshpande MD [address] [place] [address] Social History Tobacco Use Types Packs/Day Years [...] [facility] CI [address] [place] [address] Nav Mulligan LPC 05/15/2026 4:00 PM EDT Office Visit [facility] BCP OB [address] [place] [address] Chalo Wick, DO [address] [facility] [address] [place], [place] [address] documented as of this encounter Procedures Procedure Name Priority Date/Time Associated Diagnosis Comments MISCELLANEOUS LAB TEST Routine 11/12/2023 11:48 AM EST documented in this encounter Results * - Miscellaneous Test (11/12/2023 11:48 AM EST) Shaikh Jeramy GERMAN LAB BLOOD ORDERABLES Final Resu lt documented in this encounter Visit Diagnoses Not on filedocumented in this encounter Care Teams Wringer Operator Relationship Specialty Start Date End Date Shaikh Deshpande MD PCP - General Internal Medicine 09/17/23 01/27/24 Shaikh Deshpande MD [address] [place] [address] PCP - General Internal Medicine 01/28/24 06/29/24 Randal Simms MD [address] [place] [address] PCP - General Family Medicine 06/30/24 09/05/24 Unallocated, Noms ProviderMD [address] [place] [address] PCP - General Family Medicine 09/06/24 09/06/24 Unallocated, Jonathan Pena MD [address] [place] [address] PCP - General Family Medicine 01/18/25 Radha Copeland NP [address] [facility] [place] [address] Nurse Practitioner Family Medicine 06/30/24 Vicky Cedillo MD [address] [place] [address] Referring Physician Gastroenterology 11/08/24 Nav Mulligan LPC Equity Director Behavioral Health 12/22/24 documented as of this encounter
--- OUTSIDE RECORDS SUMMARY | 2025-05-11 19:46 | XMS_ITS | Encounter Summary ---
Author Organization [facility] Address [address] [place] [address] Care Team Providers Care Surveillance Systems Engineer Name Role Phone Shaikh MAXI Deshpande Primary Care Provider [phone] Shaikh MAXI Deshpande Primary Care Provider [phone] Randal Simms MD Primary Care Provider [phone] Radha Copeland DOUGHMAKER Unavailable [phone] Unallocated, Noms Provider Primary Care Provi cooper Vicky Cedillo MD Unavailable Nav Mulligan LPC Unavailable Unavailable Unallocated, Noms Provider Primary Care Provi cooper Encounter Details Date Type Department Care Team (Late st Contact Info) Description 04/17/2023 Abstract [facility] [address] [address] Chalo Wick DO [address] [facility] [place] [address] Social History Tobacco Use Types Packs/Day Years [...] BH [address] [place] [address] Nav Mulligan LPC 05/15/2026 4:00 PM EDT Office Visit [facility] BCP OB [address] [place] [address] Chalo Wick, DO [address] [place] [address] documented as of this encounter Visit Diagnoses Not on filedocumented in this encounter Care Teams Surveillance Systems Engineer Relationship Specialty Start Date End Date Shaikh Deshpande MD PCP - General Internal Medicine 09/17/23 01/27/24 Shaikh Deshpande MD [address] [place] [address] PCP - General Internal Medicine 01/28/24 06/29/24 Randal Simms MD [address] [place] [address] PCP - General Family Medicine 06/30/24 09/05/24 Unallocated, Rebecas MD Becky [address] [facility] [place] [place] [address] PCP - General Family Medicine 09/06/24 09/06/24 Unallocated, MD Danielle Quinones [place] [address] PCP - General Family Medicine 01/18/25 Radha Copeland NP [address] [place] [address] Nurse Practitioner Family Medicine 06/30/24 Vicky Cedillo MD [address] [place] [address] Referring Physician Gastroenterology 11/08/24 Nav Mulligan LPC Distribution Center Administrator Behavioral Health 12/22/24 documented as of this encounter
--- OUTSIDE RECORDS SUMMARY | 2025-05-11 19:46 | XMS_ITS | Encounter Summary ---
Author Organization [facility] Address [address] [place] [address] Care Team Providers Care Full Service Supervisor Name Role Phone Shaikh MAXI Deshpande Primary Care Provider [phone] Randal Simms MD Primary Care Provider [phone] Radha Copeland FRAUD INVESTIGATOR Unavailable [phone] Unallocated, Noms Provider Primary Care Provi cooper Vicky Cedillo MD Unavailable Nav Mulligan LPC Unavailable Unavailable Unallocated, Noms Provider Primary Care Provi cooper Encounter Details Date Type Department Care Team (Late st Contact Info) Description 01/29/2024 Orders Only [facility] CWM IM [address] [place] [address] Shaikh Deshpande MD [address] [place] [address] Idiopathic urticaria Social History Tobacco Use Types Packs/Day Years [...] CI [address] [place] [address] Nav Mulligan LPC 05/15/2026 4:00 PM EDT Office Visit [facility] BCP OB [address] [facility] [place] [address] Chalo Wick, DO [address] [facility] [place] [address] documented as of this encounter Visit Diagnoses Diagnosis Idiopathic urticaria documented in this encounter Care Teams Full Service Supervisor Relationship Specialty Start Date End Date Shaikh Deshpande MD [address] [place] [address] PCP - General Internal Medicine 01/28/24 06/29/24 Randal Simms MD [address] [place] [address] PCP - General Family Medicine 06/30/24 09/05/24 UnallocatedJonathan MD [address] [place] [address] PCP - General Family Medicine 09/06/24 09/06/24 UnallocatedJonathan MD [address] [facility] [place] [address] PCP - General Family Medicine 01/18/25 Radha Copeland NP [address] [place] [address] Nurse Practitioner Family Medicine 06/30/24 Vicky Cedillo MD [address] [place] [address] Referring Physician Gastroenterology 11/08/24 Nav Mulligan LPC Forensic Chemist Behavioral Health 12/22/24 documented as of this encounter
--- OUTSIDE RECORDS SUMMARY | 2025-05-11 19:46 | XMS_ITS | Encounter Summary ---
Author Organization [facility] Address [address] [place] [address] Care Team Providers Care Diamond Cutter Name Role Phone Shaikh MAXI Deshpande Primary Care Provider [phone] Shaikh MAXI Deshpande Primary Care Provider [phone] Randal Simms MD Primary Care Provider [phone] Radha Copeland VENEER CLIPPER Unavailable [phone] Unallocated, Noms Provider Primary Care Provi cooper Vicky Cedillo MD Unavailable Nav Mulligan LPC Unavailable Unavailable Unallocated, Noms Provider Primary Care Provi cooper Encounter Details Date Type Department Care Team (Late st Contact Info) Description 04/19/2023 Abstract [facility] [address] [place] [address] Chalo Wick DO [address] [facility] [place] [address] Social History Tobacco Use Types Packs/Day Years [...] BH [address] [place] [address] Nav Mulligan LPC 05/15/2026 4:00 PM EDT Office Visit [facility] BCP OB [address] [place] [address] Chalo Wick, DO [address] [place] [address] documented as of this encounter Visit Diagnoses Not on filedocumented in this encounter Care Teams Diamond Cutter Relationship Specialty Start Date End Date Shaikh Deshpande MD PCP - General Internal Medicine 09/17/23 01/27/24 Shaikh Deshpande MD [address] [place] [address] PCP - General Internal Medicine 01/28/24 06/29/24 Randal Simms MD [address] [place] [address] PCP - General Family Medicine 06/30/24 09/05/24 Unallocated, Rebecas MD Becky [address] [facility] [place] [address] PCP - General Family Medicine 09/06/24 09/06/24 Unallocated, MD Danielle Quinones [facility] [place] [address] PCP - General Family Medicine 01/18/25 Radha Copeland NP [address] [place] [address] Nurse Practitioner Family Medicine 06/30/24 Vicky Cedillo MD [address] [place] [address] Referring Physician Gastroenterology 11/08/24 Nav Mulligan LPC Vine Pruner Behavioral Health 12/22/24 documented as of this encounter
--- OUTSIDE RECORDS SUMMARY | 2025-05-11 19:46 | XMS_ITS | Encounter Summary ---
Author Organization [facility] Address [address] [place] [address] Care Team Providers Care Property Master Name Role Phone Copeland, Radha ADVENTURE THERAPIST Unavailable [phone] Vicky Cedillo MD Unavailable Nav Mulligan LPC Unavailable Unavailable Unallocated, Noms Provider MD Primary Care Provi cooper Encounter Details Date Type Department Care Team (Late st Contact Info) Description 05/11/2025 Bamboo flowsheet [facility] BCP OB [address] [place] [address] Chalo Wick, DO [address] [place], [facility] Social History Tobacco Use Types Packs/Day Years [...] often do you attend chur ch or mormon services? Patient declined 11/30/2024 Do you belong to any clubs o r organizations such as rastafarian groups, unions, fraternal or athletic groups, or [...] Recorded Patient Health Questionnaire-2 Score 0 01/10/2025 [facility] - Occupational Stress [...] or rent on time? Patient declined 11/30/19 In the past 12 months, how m any times have you moved where you were living? 0 11/30/2024 At any time in the past 12 m [facility], were you homeless or living in a intermediate (including now)? No 11/30/2024 Education Answer Date [...] CI [address] [place] [address] Nav Mulligan LPC 05/15/2026 4:00 PM EDT Office Visit [facility] BCP OB [address] [place] [address] Chalo Wick, DO [address] [facility] [place] [address] documented as of this encounter Visit Diagnoses Not on filedocumented in this encounter Additional Health Concerns Assessment Noted Time PHQ-9 Depression Total Score: 0 01/10/20 3:07 PM EST documented as of this encounter Care Teams Property Master Relationship Specialty Start Date End Date Unallocated, Noms Provider, [place] [address] PCP - General Family Medicine 01/18/25 Radha Copeland NP Nurse Practitioner Family Medicine 06/30/24 Vicky Cedillo MD Referring Physician Gastroenterology 11/08/24 Nav Mulligan LPC [facility] [facility] 12/22/24 documented as of this encounter
--- OUTSIDE RECORDS SUMMARY | 2025-05-11 19:46 | XMS_ITS | Encounter Summary ---
Author Organization [facility] Address [address] [place] [address] Care Team Providers Care Upper Leather Cutter Name Role Phone Shaikh MAXI Deshpande Primary Care Provider [phone] Shaikh MAXI Deshpande Primary Care Provider [phone] Randal Simms MD Primary Care Provider [phone] Radha Copeland TUFTER HAND Unavailable [phone] Unallocated, Noms Provider Primary Care Provi cooper Vicky Cedillo MD Unavailable Nav Mulligan LPC Unavailable Unavailable Unallocated, Noms Provider Primary Care Provi cooper Encounter Details Date Type Department Care Team (Late st Contact Info) Description 01/15/2024 Orders Only [facility] [address] [place] [address] Shaikh Deshpande MD [address] [place] [address] Social History Tobacco Use Types Packs/Day [...] [facility] CI BH [address] [place] [address] Nav Mulligan LPC 05/15/2026 4:00 PM EDT Office Visit [facility] BCP OB [address] [facility] [place] [address] Chalo Wick, DO [address] [facility] [address] [place], [place] [address] documented as of this encounter Procedures Procedure Name Priority Date/Time Associated Diagnosis Comments US VENOUS DUPLEX RIGHT UPPER Routine 01/03/2024 3:58 PM EST documented in this encounter Results * US VENOUS DUPLEX RIGHT UPPER (01/03/2024 3:58 PM EST) Anatomical Region Laterality Modality Radiographic Susan ging Shaikh Jeramy GERMAN IMG XR PROCEDURES Final Result documented in this encounter Visit Diagnoses Not on filedocumented in this encounter Care Teams Upper Leather Cutter Relationship Specialty Start Date End Date Shaikh Deshpande MD PCP - General Internal Medicine 09/17/23 01/27/24 Shaikh Deshpande MD [address] [place] [address] PCP - General Internal Medicine 01/28/24 06/29/24 Randal Simms MD [address] [place] [address] PCP - General Family Medicine 06/30/24 09/05/24 Unallocated, Jonathan ProviderMD [address] [place] [address] PCP - General Family Medicine 09/06/24 09/06/24 Unallocated, Jonathan ProviderMD [address] [place] [address] PCP - General Family Medicine 01/18/25 Radha Copeland NP [address] [place] [address] Nurse Practitioner Family Medicine 06/30/24 Vicky Cedillo MD [address] [place] [address] Referring Physician Gastroenterology 11/08/24 Nav Mulligan LPC Utility Driver Behavioral Health 12/22/24 documented as of this encounter
--- OUTSIDE RECORDS SUMMARY | 2025-05-11 19:46 | XMS_ITS | Encounter Summary ---
Author Organization [facility] Address [address] [place] [address] Care Team Providers Care Die Finisher Name Role Phone Shaikh MAXI Deshpande Primary Care Provider [phone] Shaikh MAXI Deshpande Primary Care Provider [phone] Randal Simms MD Primary Care Provider [phone] Radha Copeland ETCHER PRINTED CIRCUIT BOARDS Unavailable [phone] Unallocated, Noms Provider Primary Care Provi cooper Vicky Cedillo MD Unavailable Nav Mulligan LPC Unavailable Unavailable Unallocated, Noms Provider Primary Care Provi cooper Encounter Details Date Type Department Care Team (Late st Contact Info) Description 01/03/2024 Clinisync Result Encounter [facility] External Department Unsolicited Provider, Generic External Data Social History Tobacco Use Types Packs/Day Years [...] 05/26/2025 3:00 PM EDT Social Work [facility] [address] [facility] [place] [address] Nav Mulligan LPC 05/15/2026 4:00 PM EDT Office Visit [facility] OB [address] [place] [address] Chalo Wick, DO [address] [facility] [place] [address] documented as of this encounter Procedures Procedure Name Priority Date/Time Associated Diagnosis Comments US RIGHT UPPER QUADRANT 01/03/2024 9:20 AM EST documented in this encounter Results * US RIGHT UPPER QUADRANT (01/03/2024 9:20 AM EST) Anatomical Region Laterality Modality Other 01/03/2024 9:20 AM EST Narrative 01/03/2024 9:22 AM EST The [address] [address] Ultrasound Report Signed Patient: ROCIO HINES MR#: [id number] : 1990 Acct:[id number] Age/Sex: 33 / F ADM Date: 01/03/24 Loc: US Attending Dr: Non-Staff Physician Shreya Ordering Physician: PhysicianNon-Staff Shreya Date of Service: 01/03/24 Procedure(s): US right upper quadrant Accession Number(s): [id number] cc: Shaikh Shreya Deshpande; PhysicianCarlos AlbertoStaff Shreya The [address] [address] Patient Name: ROCIO HINES MRN: [id number] date: 1990 Sex: F Assigned Patient Location: US Current Patient Location: US Accession/Order Number: [id number] Exam Date: 01/03/2024 08:15 Report Date: 01/03/2024 09:20 At the request of: NON-STAFF PHYSICIAN Procedure: US right upper quadrant EXAMINATION: US right upper quadrant HISTORY: Alcoholic cirrhosis of liver with ascites K70.31 COMPARISON: Ultrasound right upper quadrant 07/26/2023 TECHNIQUE: Transabdominal evaluation of the right upper quadrant. FINDINGS: LIVER: Nodular margins and slightly heterogeneous echotexture suggestive of cirrhosis. Small varices within hilum. PORTAL VEIN: Duplex Doppler demonstrates normal hepatopetal flow pattern with flow velocity averaging 20 cm/s. GALLBLADDER: No visible gallstones, wall thickening, or pericholecystic free fluid. Negative sonographic Carreon's sign. BILIARY: No abnormal dilation or stones. Common bile duct diameter is within normal limits. PANCREASE: No visible mass, abnormal atrophy, or duct dilation. KIDNEY: No hydronephrosis. No visible mass or stones. Size: 11.0 x 5.4 x 5.4 cm US/US right upper quadrant IMPRESSION: 1. Liver findings and small hilum varices compatible with cirrhosis. No appreciable change. 2. No free fluid. Electronically authenticated by: JUAN JOSE LANG Date: 01/03/2024 09:20 Dictated By: Juan Jose Lang M.D. Signed By: 01/03/24921 DD/ 9 TD/TT: Pastoral Worker: Procedure Note Radiology, Radiologist, - 01/03/2024 [place] [address] Ultrasound Report Signed Patient: ROCIO HINES [facility]#: [id number] : 1990Acct:[id number] Age/Sex: 33 / FADM Date: 01/03/24 Loc: US Attending Dr: Carlos AlbertoStaff Physician Cash Ordering Physician: Armando Foster M.D. Date of Service: 01/03/24 Procedure(s): US right upper quadrant Accession Number(s): [id number] cc: Shaikh Shreya Deshpande; Armando Foster M.D. The [address] [address] Patient Name: ROCIO HINES MRN: [facility]:[id number] date: 1990 Sex: F Assigned Patient Location: US Current Patient Location: US Accession/Order Number: [id number] Exam Date: 01/03/2024 08:15 Report Date: 01/03/2024 09:20 At the request of: NON-STAFF PHYSICIAN Procedure: US right upper quadrant EXAMINATION: US right upper quadrant HISTORY: Alcoholic cirrhosis of liver with ascites K70.31 COMPARISON: Ultrasound right upper quadrant 07/26/2023 TECHNIQUE: Transabdominal evaluation of the right upper quadrant. FINDINGS: LIVER: Nodular margins and slightly heterogeneous echotexture suggestiveof cirrhosis. Small varices within hilum. PORTAL VEIN: Duplex Doppler demonstrates normal hepatopetal flow patternwith flow velocity averaging 20 cm/s. GALLBLADDER: No visible gallstones, wall thickening, or pericholecysticfree fluid. Negative sonographic Carreon's sign. BILIARY: No abnormal dilation or stones. Common bile duct diameter iswithin normal limits. PANCREASE: No visible mass, abnormal atrophy, or duct dilation. KIDNEY: No hydronephrosis. No visible mass or stones. Size: 11.0 x 5.4 x5.4 cm US/US right upper quadrant IMPRESSION: 1. Liver findings and small hilum varices compatible with cirrhosis. No appreciable change. 2. No free fluid. Electronically authenticated by: JUAN JOSE LANG Date: 01/03/2024 09:20 Dictated By: Juan Jose Lang M.D. Signed By:01/03/24921 DD/ 9 TD/TT: Pastoral Worker: us Generic External Data Provider [facility] Final Result documented in this encounter Visit Diagnoses Not on filedocumented in this encounter Care Teams Die Finisher Relationship Specialty Start Date End Date Shaikh Deshpande MD PCP - General Internal Medicine 09/17/23 01/27/24 Shaikh Deshpande MD [address] [place] [address] PCP - General Internal Medicine 01/28/24 06/29/24 Randal Simms MD [address] [place] [address] PCP - General Family Medicine 06/30/24 09/05/24 Unallocated, Jonathan Pena MD [address] [place] [address] PCP - General Family Medicine 09/06/24 09/06/24 Unallocated, Jonathan Pena MD [address] [place] [address] PCP - General Family Medicine 01/18/25 Radha Copeland NP [address] [place] [address] Nurse Practitioner Family Medicine 06/30/24 Vicky Cedillo MD [address] [place] [address] Referring Physician Gastroenterology 11/08/24 Nav Mulligan LPC Health Care Recruiter Behavioral Health 12/22/24 documented as of this encounter
--- OUTSIDE RECORDS SUMMARY | 2025-05-11 19:46 | XMS_ITS | Encounter Summary ---
Author Organization [facility] Address [address] [place] [address] Care Team Providers Care Cooler Service Supervisor Name Role Phone Shaikh MAXI Deshpande Primary Care Provider [phone] Shaikh MAXI Deshpande Primary Care Provider [phone] Randal Simms MD Primary Care Provider [phone] Radha Copeland WOOD PILE DRIVER OPERATOR Unavailable [phone] Unallocated, Noms Provider Primary Care Provi cooper Vicky Cedillo MD Unavailable Nav Mulligan LPC Unavailable Unavailable Unallocated, Noms Provider Primary Care Provi cooper Encounter Details Date Type Department Care Team (Late st Contact Info) Description 11/03/2023 Orders Only [facility] [address] [place] [address] Shaikh Deshpande MD [address] [place] [address] Social History Tobacco Use Types Packs/Day [...] CI [address] [place] [address] Nav Mulligan LPC 05/15/2026 4:00 PM EDT Office Visit [facility] BCP OB [address] [place] [address] Chalo Wick DO [address] [place] [address] documented as of this encounter Visit Diagnoses Not on filedocumented in this encounter Care Teams Cooler Service Supervisor Relationship Specialty Start Date End Date Shaikh Deshpande MD PCP - General Internal Medicine 09/17/23 01/27/24 Shaikh Deshpande MD [address] [place] [address] PCP - General Internal Medicine 01/28/24 06/29/24 Randal Simms MD [address] [place] [address] PCP - General Family Medicine 06/30/24 09/05/24 Unallocated, [place] [address] PCP - General Family Medicine 09/06/24 09/06/24 Unallocated, [place] [address] PCP - General Family Medicine 01/18/25 Radha Copeland NP [address] [place] [address] Nurse Practitioner Family Medicine 06/30/24 Vicky Cedillo MD [address] [place] [address] Referring Physician Gastroenterology 11/08/24 Nav Mulligan LPC Planting Machine Crewman Behavioral Health 12/22/24 documented as of this encounter
--- OUTSIDE RECORDS SUMMARY | 2025-05-11 19:46 | XMS_ITS | Clinical Summary ---
Author Organization [facility] Address [address] [place] [address] Care Team Providers Care Body Coverer Name Role Phone Copeland, Radha SUPERVISOR BEATER ROOM Unavailable [phone] Vicky Cedillo MD Unavailable Nav Mulligan LPC Unavailable Unavailable Unallocated, Noms Provider MD Primary Care Provi cooper Allergies Active Allergy Reactions Criticality Noted Date Comments Ciprofloxacin Medium 11/17/2018 Other Reaction(s): Unknown Penicillins Medium 01/02/2017 Other Reaction(s): Unknown, Vomiting Sulfamethoxazole 06/09/2021 Other Reaction(s): Other: See Comments Trimethoprim 06/09/2021 Other Reaction(s): Other: See Comments Medications zolpidem (Ambien) 5 MG tabletIndication s:Psychophysiolo gical insomnia Take 1 tablet (5 mg) by mouth as needed at bedtime for sleep 30 tablet 09/06/20 24 Active furosemide (Lasix) 20 MG tabletIndication s:Alcoholic cirrhosis of liver without ascites (HCC) Take 1 tablet (20 mg) by mouth Daily as needed (for swelling) 90 tablet 01/10/20 25 025 Active propranolol (Inderal) 10 MG tabletIndication s:Social anxiety disorder Take 2 tablets (20 mg) by mouth 2 (two) times a day as needed (social anxiety) for up to 30 doses 60 tablet 3 01/10/20 25 Active docusate sodium (Colace) 100 MG capsuleIndicatio ns:Constipation, unspecified constipation type Take 1 capsule (100 mg) by mouth 2 (two) times a day as needed for constipation 60 capsule 05/11/20 25 025 Active thiamine (,Vitamin B-1,) 100 MG tabletIndication s:Alcohol use disorder in remission Take 1 tablet (100 mg) by mouth Daily 12/07/19 25 025 Discontin ued(Other ) folic acid (Folvite) 1 MG tabletIndication s:Alcohol use disorder in remission Take 1 tablet (1 mg) by mouth Daily 90 tablet 1 12/07/19 25 025 Discontin ued(Other ) Active Problems Problem Noted Date Diagnosed Date Social anxiety disorder 12/01/2024 History of alcohol abuse 12/01/2024 Alcoholic cirrhosis of liver without ascites (K7 0.30) 01/28/2024 Assessment & Plan (05/04/2024 4:02 PM EDT): Stable, compensated. Recent US abd, labs - reviewed - mild ascites. On Lasix 20 mg as needed. Monitor. Assessment & Plan (01/28/2024 3:08 PM EDT): Stable, compensated. Recent US abd, labs - reviewed, normal Not on Lasix and Aldactone anymore. Monitor. Will call in lasix as needed. Chronic fatigue 01/28/2024 Assessment & Plan (01/28/2024 2:57 PM EDT): Improved/resolved. This was likely due to low BP from lasix/aldactone. Alcohol use disorder in remission 01/28/2024 Assessment & Plan (05/04/2024 4:02 PM EDT): Sober for over 4 years now. C/w same. FRANKLIN (generalized anxiety disorder) 01/28/2024 Assessment & Plan (12/07/2024 3:23 PM EST): Was referred to . Now taking propanolol 10mg TID for anxiety. Is now doing CBT. States over [place] she had swelling in knees and ankles. Did not go to ER- was concerned it was propanolol causing the edema or that she was going into liver failure again. States swelling went down on its own but she was leery of taking it because of this. Denies shortness of breath swelling Dizziness Chest pain Heart skipping beats Fatigue Cough Recommend pt stop medication at this time. Discuss further options with Kristy BROOKS tomorrow at her OV. Is following with Dr. Aguila in [place] for cirrhosis on 12/13/2024. Assessment & Plan (09/06/2024 5:19 PM EDT): Pt reports she was previously taking Effexor, benzodiazepines and hydroxyzine. She is not on any medications currently. She feels her anxiety is worsening but is very hesitant to initiate any new medications due to the effects she had when coming off of Effexor. Denies SI/HI. Agreeable to seeing for therapy and possible medication management if necessary. Referral sent to . Assessment & Plan (05/04/2024 4:01 PM EDT): Previously required benzodiazepines and hydroxyzine. She is not on any medications currently. She feels that her anxiety is getting worse again but she would prefer to use anything on a regular basis. She was recommended to find a psychologist and start behavioral therapy. She will look into it and see if it helps. Assessment & Plan (01/28/2024 2:57 PM EDT): Previously required benzodiazepines and hydroxyzine. Well controlled now. 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 Rash happen more or less daily. Ongoing for 9-10 months. No new medication, personal hygiene product. She showed me pictures of her rashes and it seems c/w urticarial rash Likely idopathic. Will call in claritin along topical benadryl and cortisone cream Resolved Problems Problem Noted Date Diagnosed Date Resolved Date RUQ abdominal pain 05/04/2024 Assessment & Plan (05/04/2024 4:05 PM EDT): Un explained RUQ pain ever since she was diagnosed with liver cirrhosis. 3-4/week - lasts for an hour, no association with food. Denies diarrhea/constipation Ongoing/chronic for 3-4 years now. No evidence of GB dysfunction/Cholecystitis on US and HIDA scan previously. She previously used bentyl with no help. Trial of hyocyanine as needed. Anxiety 01/28/2024 01/28/2024 Wellness examination 01/28/2024 024 Assessment & Plan (01/28/2024 3:16 PM EDT): Patient here for Annual Wellness Exam. Reviewed medical, surgical and social hx. Reviewed medication list. Health related questions and concerns addressed and answered. Patient provided appropriate education on chronic medical conditions and prescription medications. Encounters Date Type Department Care Team Description 05/11/2025 4:00 PM EDT Office Visit [facility] [address] [place] [address] Chalo Wick, Well woman exam with routine gynecological exam; Alcoholic cirrhosis, unspecified whether ascites present (HCC); Constipation, unspecified constipation type; Abnormal uterine bleeding (AUB) 05/11/2025 Bamboo flowsheet [facility] [address] [place] [address] Chalo Wick DO 04/21/2025 3:00 PM EDT Social Work [facility] [address] [place] [address] Nav Mulligan LPC FRANKLIN (generalized anxiety disorder) ; Social anxiety disorder 04/21/2025 Bamboo flowsheet [facility] [address] [place] [id number] Nav Mulligan LPC 04/21/2025 Travel 04/07/2025 3:00 PM EDT Social Work [facility] [address] [place] [id number] Nav Mulligan LPC FRANKLIN (generalized anxiety disorder) 04/07/2025 Bamboo flowsheet [facility] [address] [place] [address] Nav Mulligan LPC 04/07/2025 Travel 03/10/2025 3:00 PM EDT Social Work [facility] [address] [place] [address] Nav Mulligan LPC FRANKLIN (generalized anxiety disorder) 03/10/2025 Bamboo flowsheet [facility] [address] [place] [address] Nav Mulligan LPC 03/10/2025 Travel 03/09/2025 Travel 02/24/2025 3:00 PM EDT Social Work [facility] [address] [place] [address] Nav Mulligan LPC FRANKLIN (generalized anxiety disorder) 02/24/2025 Bamboo flowsheet [facility] [address] [place] [address] Nav Mulligan LPC 02/24/2025 Travel from Last 3 Months Immunizations Immunization Administration Dates Next Due Hep A, Adult 08/29/2022,12/24/2021 Hep B, adult 08/29/2022,02/21/2022,12/24/2021 Family History Medical History Relation Name Comments Diabetes Maternal Grandfather Throat cancer Maternal Grandfather Breast cancer Maternal Grandmother Hypertension Mother Aneurysm Paternal Grandfather Cancer Paternal Grandmother Relation Name Status Comments Father Alive Maternal Grandfather Alive Maternal Grandmother Mother Alive Other Alive siblings Paternal Grandfather Paternal Grandmother Social History Tobacco Use Types Packs/Day Years Used Date Smoking Tobacco: Every Day Cigarettes Passive Smoke Exposure: Current Smokeless Tobacco: Never Tobacco Cessation:Ready to Q uit: Not Asked; Counseling Given: Not Answered Comments:6-10 Alcohol Use Standard Drinks/Week Comments Not [...] often do you attend chur ch or samaritan services? Patient declined 11/30/2024 Do you belong to any clubs o r organizations such as mosque groups, unions, fraternal or athletic groups, or [...] Patient Health Questionnaire-2 Score 0 [facility] Answer Date Recorded [...] any time in the past 12 m [facility], were you homeless or living in a [...] AM EDT Sexual Orientation Not on file Last Filed Vital Signs Vital Sign Reading Time Taken Comments Blood Pressure 108/68 05/11/2025 4:22 PM EDT Pulse 94 01/10/2025 3:03 PM EST Temperature 36.2 C (97.2 F) 12/07/2024 2:56 PM EST Respiratory Rate 16 12/07/2024 2:56 PM EST Oxygen Saturation 98% 12/07/2024 2:56 PM EST Inhaled Oxygen Concentration - - Weight 64.3 kg (141 lb 12.8 oz) 05/11/2025 4:22 PM EDT Height 154.9 cm (5' 1 ) 12/07/2024 2:56 PM EST Body Mass Index 26.79 12/07/2024 2:56 PM EST Plan of Treatment Upcoming Encounters Date Type Department Care Team (Late st Contact Info) Description 05/26/2025 3:00 PM EDT Social Work [facility] [address] [facility] [address] [place] [address] Nav Mulligan LPC 05/15/2026 4:00 PM EDT Office Visit [facility] [address] [place] [phone] Chalo Wick, DO [address] [place], [place] [id number] Health Maintenance Due Date Last Done Comments Pap Smear 2009 Cervical Cancer Screening 2018 HPV/Cotest 2018 Influenza Vaccine (Season Ended) 2025 Insurance [employer] Care Teams Body Coverer Relationship Specialty Start Date End Date Unallocated, Noms MD Becky [address] [place] [address] PCP - General Family Medicine 01/18/25 Radha Copeland NP Nurse Practitioner Family Medicine 06/30/24 Vicky Cedillo MD Referring Physician Gastroenterology 11/08/24 Nav Mulligan LPC Principal Accounts Clerk Behavioral Health 12/22/24
[2025-05-16 14:10] LABS: Age Gdln ACOG Testing Note (.); HPV Aptima Negative (Negative); IGP, Aptima HPV, rfx 16/18,45 Note (.)
== END 2025-05-11 19:42 | disposition home or self-care (01) ==
LOC: LAB 19:41
PROVIDERS: Visit Provider Obstetrics & Gynecology
DX: Z01.419 Encounter for gynecological examination (general) (routine) without abnormal findings (principal)
CPT/HCPCS: 87624; 88175

== ENCOUNTER 2025-06-16 15:24 | Outpatient (OUT) | payer OTHER, SELFPAY ==
[2025-06-16 15:46] LABS: Hematocrit 37.5 % (36.0-48.0); Hemoglobin 12.3 g/dL (12.0-16.0); Immature Granulocytes Abs Auto 0.01 10^3/uL (0.00-0.03); Immature Granulocytes Pct Auto 0.2 % (0.0-0.5); Lymphocytes Absolute Auto 2.0 10^3/uL (1.2-3.8); Mean Corpuscular HGB Conc 32.8 g/dL (29.9-35.2); Mean Corpuscular Hemoglobin 30.9 pg (26.7-34.0); Mean Corpuscular Volume 94.2 fL (81.0-99.0); Platelet Count 164 10^3/uL (150-450); Red Blood Count 3.98 10^6/uL (4.20-5.40); White Blood Count 5.9 10^3/uL (4.0-11.0)
[2025-06-16 15:57] LABS: INR 1.07; Prothrombin Time 11.3 sec (9.0-11.6)
[2025-06-16 16:24] LABS: Alanine Aminotransferase 24 U/L (14-59); Albumin Globulin Ratio 1.4; Albumin Level 4.1 g/dL (3.4-5.0); Alkaline Phosphatase 37 U/L (46-116); Anion Gap 13.0; Aspartate Amino Transferase 21 U/L (15-37); Blood Urea Nitrogen 11.0 mg/dL (7.0-18.0); Calcium 9.0 mg/dL (8.5-10.1); Carbon Dioxide 27.0 mmol/L (21.0-32.0); Chloride 104 mmol/L (98-107); Estimated GFR (African America >60 (>=60 mL/min/1.73m^2); Estimated GFR (Non-African Ame >60 (>=60 mL/min/1.73m^2); Globulin 2.9 g/dL; Glucose 95 mg/dL (74-106); Potassium 4.0 mmol/L (3.5-5.1); Sodium 140 mmol/L (136-145); Total Protein 7.0 g/dL (6.4-8.2)
[2025-06-18 08:08] LABS: AFP, Serum, Tumor Marker 1.8 ng/mL (0.0-6.4)
== END 2025-06-16 15:25 | disposition home or self-care (01) ==
LOC: LAB 15:24
PROVIDERS: Visit Provider Internal Medicine
DX: K70.31 Alcoholic cirrhosis of liver with ascites (principal)
CPT/HCPCS: 36415; 80053; 82105; 85025; 85610

== ENCOUNTER 2025-09-23 08:39 | Outpatient (OUT) | payer OTHER, SELFPAY ==
--- OUTSIDE RECORDS SUMMARY | 2025-09-21 06:22 | XMS_ITS | Continuity of Care Document ---
Author Organization [facility] Address [address] [place] [address] Phone Care Team Providers Care Pedal Assembler Name Role Phone Vicky Cedillo MD Attending Provider Vicky Cedillo MD Other Provider NO FAMILY, PHYSICIAN Primary Care Provider Ness Moe APRN Attending Provider Lizbeth Owens FOREST MANAGEMENT PROFESSOR-C Primary Care Provider Lizbeth Owens NP-C Attending Provider Care Teams Patient Care Team Team Status: Active Member Role/Relationship Status Dates Lizbeth Owens NP-C Primary Care Provider Active Visit Care Team Team Status: Active Member Role/Relationship Status Dates Vicky Cedillo MD Attending Provider Active Start: August 05, 2025 Vicky Cedillo MDOther ProviderActiveStart: August 05, 2025 PHYSICIAN NO FAMILYPrimary Care ProviderActiveStart: August 05, 2025 Visit Care Team Team Status: Inactive Member Role/Relationship Status Dates PHYSICIAN NO FAMILY Primary Care Provider Active Start: September 06, 2025 End: September 06, 2025Ness Lemon APRN FOREST MANAGEMENT PROFESSOR-CAttending Provider ActiveStart: September 06, 2025 End: September 06, 2025 Visit Care Team Team Status: Inactive Member Role/Relationship Status Dates DISHA Veronica RN FOREST MANAGEMENT PROFESSOR-C Attending Provider Active Start: September 06, 2025 End: September 06, 2025 Patient Care Team Team Status: Inactive Member Role/Relationship Status Dates GHULAM Monique Primary Care Provider Active Start: September 21, 2025 End: September 21, 2025Lizbeth Owens NP-CAttending ProviderActiveStart: September 21, 2025 End: September 21, 2025 Chief Complaint and Reason for Visit Chief Complaint Admit Date Cirrhosis August 05, 2025 7:05am chills, congestion September 06, 2025 5 :37pm J02.9 September 06, 2025 6 :20pm ANNUAL WELLNESS September 21, 2025 1 0:23am Reason for Visit Admit Date Chills September 06, 2025 5 :37pm 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 September 21, 2025 10:23am Anxiety September 21, 2025 1 0:23am Encounter for wellness examination Novem 2024 10:23am Fatigue September 21, 2025 1 0:23am Low thyroid stimulating hormone (TSH) le stacy September 21, 2025 10:23am Allergies, Adverse Reactions, Alerts Allergen Type Severity Reaction Last Updated Verified Status penicillin G Allergy Unknown vomits nonstop September 21, 2025 10:49am Yes Active Penicillins Adverse Reaction Unknown Vomiting September 21, 2025 10:49am Yes Active sulfamethoxazole Adverse Reaction Unknown Joint Pain September 21, 2025 10:49am Yes Active trimethoprim Adverse Reaction Unknown Joint Pain September 21, 2025 10:49am Yes Active Social History Smoking Status Status Start Date End Date Date of Observa tion Smokes tobacco daily (finding) September 21, 2025 10:32am Observation Status Observation Response Date of Response Legal Sex Female (finding) Sex Assigned At BirthFemaleSeptember 1989 Family History Relationship Condition Age at Onset Recorded Date/T jolynn grandparent Malignant neoplasm of breast Unknown grandparentMalignant neoplasm of throatUnknowngrandparentMalignant neoplasm of brainUnknown Problems Active Problems Problem Diagnosis/Recorded Date Onset Date Status C omments Alcoholic cirrhosis of liver with ascites April 13, 2025 2:58pm Unknown Active SciaticaMay 2024 3:36pmUnknownActiveFatigueNov2024 11:14am UnknownActiveAnxietyMay 2024 2:58pmUnknownActiveEncounter for wellness examinationNovember 2024 6:44amUnknownActiveLow thyroid stimulating hormone (TSH) levelMay 2024 2:58pmUnknownActiveOther ascitesMay 2024 2:58pm UnknownActiveInactive/Resolved Problems Problem Diagnosis/Recorded Date Onset Date Status C omments Ascites June 08, 2021 9:47pm Unknown Resolved Pr oblem List clean-up per request of Phys. EHR Cmte Alcoholic cirrhosis of liver with ascites June 09, 2021 7:42am Unknown Resolved Pro blem List clean-up per request of Phys. EHR Cmte Viral URI with cough April 16, 2024 5:51pm Unknown Reso lved SBP (spontaneous bacterial peritonitis)June 09, 2021 7:43amUnknownResolved Problem List clean-up per request of Phys. EHR CmteChillsOctober 2024 5:48pmUnknownResolvedUpper abdominal painAugust 2020 10:27amUnknown ResolvedProblem List clean-up per request of Phys. EHR CmteSplenic varicesJuly 2020 9:47pmUnknownResolvedProblem List clean-up per request of Phys. EHR CmteCholecystitisJuly 2020 7:43amUnknownResolvedProblem List clean-up per request of Phys. EHR CmteAcute bacterial conjunctivitis of right eyeMay 2023 5:51pmUnknownResolvedCirrhosisJuly 2020 9:47pmJuly, esolved Problem List clean-up per request of Phys. EHR CmteCirrhosisJanuary 2024 3:24pmUnknownResolvedEsophageal varices determined by endoscopyJanuary 2024 3:41pmUnknownResolved Medications Medication Status Dose Units Route Directions Qty Days Refills S tart Date Stop Date End Date Reason(s) Instructions Adherence Folic Acid 1 mg tablet Discontinued 1 MG PO Daily 30 30 3 August 17, 2024 12:15pm April 13, 2025 3:03pmTake 1 tablet orally once a day.Furosemide 40 mg tablet Zajbkzfqifex20PBGTGl Directed as needed for water orywetihl57118Qtuheky 2023 12:17pmJanuary 2024 3:27pmFurosemide 40 mg jtrfhtIfemgftmzbkm26VDIVPu Directed as needed for water retentionAugust 2020 11:00pmMay 2023 4:39pmVenlafaxine 37.5 mg Capsule,Extended Release 51ugSidpzlrnjkgv22.5MGPODaily at bedtimeAugust 2020 11:00pmSeptember 2022 7:40amSpironolactone 25 mg erpyzcYqpwdoyolapj88UWEVNi Directed as needed for water retentionAugust 2020 11:00pmJanuary 2024 3:44pmAlprazolam 0.25 mg tabletDiscontinued0.25MG POAs DirectedAugust 2020 11:00pmSeptember 2022 7:40amFolic Acid 1 mg pzwatdNnojwnzugguz3VMWIGc DirectedAugust 2020 11:00pmOctober 2023 12:18pmFurosemide 40 mg zwtmvfMspbuklfhizb86DTEJIp Directed as needed for water retentionMay 2023 4:38pmOctober 2023 12:18pmZolpidem 5 mg tablet Rolmstvcthpl3YZOMYupwpQredlgmzj 2022 11:00pmMay 2023 4:39pmBupropion Hcl 150 mg tablet extended release 24 xpIoymklulbywr621WWJXZjqblEtcjodylj 2022 11:00pmSeptember 2022 7:41amThiamine Mononitrate (Vit B1) (Vitamin B- 1 (Mononitrate)) 100 mg jvfqhkZczuhteflbuo762IPYUjdfbt other daySeptember 2022 11:00pmNovember 2024 10:30amZolpidem 5 mg tabletActive2.5MGPODaily as needed for sleepMay 2023 4:39pmComplies with drug therapyVitamin B Complex DtlgijYpbmlirjagoe6CHUSCUeedfYodr 2020 11:00pmSeptember 2022 7:39am Cranberry Conc-Ascorbic Acid 4,200-20 mg ImgazxnNmthplhjhata9HFFQAUftaoUxdr 2020 11:00pmAugust 2020 10:07amAscorbic Ubic-Dmoltmwh-Vvg (Emergen- C) 1,000 mg Powder Effervescent In WvsqycBounsfuqjqht0OJCEAJPdizmBaci 2020 11:00pmMay 2023 4:38pmOxycodone (Roxicodone) 5 mg tabletDiscontinued2.5MG PODaily as needed for pndb637Pvpw eptember 2022 7:40am Spontaneous bacterial peritonitis Cholecystitis Alcoholic cirrhosis of liver with ascites Hepatic cirrhosis Abdominal ascites Varices of spleen Spontaneous bacterial peritonitis Cholecystitis, unspecified Alcoholic cirrhosis of liver with ascites Unspecified cirrhosis of liver Other ascites Varicose veins of other specified sitesLevofloxacin 750 mg tlmhbmCxewarhtcuzw831 JZOCMeafd389Nnyd 2020 11:00pmAugust 2020 10:08amPrednisone 20 mg szsegwKaahozdtaudl56LDIYYbiof663Iyhh 2020 11:00pmSeptember 2022 7:40amNicotine 21 mg/24 hr Patch 24 VmpsZvhcpyvzmadz5RNBETLEWBQSXWFPE03P04Ylxp 2020 11:00pmAugust 2020 10:08amLoperamide (Anti-Diarrheal (Loperamide)) 2 mg ObwgecjVpssrxqtoyte1KQRekab morningJuly 2020 11:00pm June 11, 2021 2:47pmPsyllium Husk (Metamucil) 0.4 gram CapsuleDiscontinued0.4 GMPOBedtime as needed for fiberJuly 2020 11:00pmJuly 2020 2:47pm Propranolol 10 mg syfpxfPfokndtkoubp01ZWKUDlzyr times daily as needed for anxietyJanuary 2024 12:00amNovember 2024 10:30amFurosemide 20 mg zcrbbrGilqmsretnns11YIPCRwfjzlv 2024 12:00amJanuary 2024 3:45pm Furosemide 20 mg avokpsFhxtpl87IAVCXc Directed as needed for edemaJanuary 2024 3:45pmComplies with drug therapyCyclobenzaprine 5 mg yhfnnvDdpfliyoibsx0YN POThree times daily as needed for muscle waces833Cir 2024 11:00pmSeptember 2024 10:39amLidocaine 5 % adhesive patch,cbyqffarcVvlidgxrdwhx5DEAJQDDZBPFV Daily as needed for lwng451Pew 2024 11:00pmSeptember 2024 10:39am leave on most painful area for up to 12 hrsPrednisone 20 mg htldzvEiwuwsgmffip77 HERKFmwsu6686Acb 2024 11:00pmSeptember 2024 10:40amOndansetron 4 mg tablet,mkuwhbwybkvdxtBtkshlhbmgdt4KUSQQlshx 8 hours as needed for nausea and uygxpumy349Lws 2024 11:00pmSeptember 2024 10:40amThiamine Hcl (Vitamin B1) 100 mg fxdgzqHbbzhn451ARZHFyizgLvdiqfwb 5th, 2025 12:00amComplies with drug qminwikXdjdguyryyjyrwm-Fp-Ddgvzchovir (Capmist Dm) 60-15-400 mg tablet Tbkqgzpkzatc3HAYETMCDHD 4-6 HOURS as needed for cold eqdtvpcb523Mlt 2023 11:00pmJanuary 2024 3:28pmdo not exceed 4 doses per 24 hrsOfloxacin 0.3 % dtfnoKlxlvijineyl0LZNKQVSBDDJYNVHSkap times zwojf2402Ned 30th, 2024 11:00pm December 13, 2024 3:27pmto right eye Procedures Procedure Date Performed Status Throat Culture September 06, 2025 completed Quick Strep (POC) September 06, 2025 completed Relevant Diagnostic Tests and/or Laboratory Data Microbiology Results Procedure Source Result Collection Date/Time Result Date/Time Result Comment Performing Site Quick Strep (POC) Throat September 06, 2025 6:18pmOctober 2024 6:18pmThroat CultureThroat2 Days September 06, 2025 6:20pmOctober 2024 9[id number] [address] [place] [id number] Vital Signs Vital Reading Result Reference Range Collection Date/Time Height 62 [in_i] August 05, 2025 6:62eoPpjgfo44.23 kgSeptember 2024 6:30amHeart Rate83 /hde77-507Bjzuzxzpn 19th, 2025 8:21amRespiratory rate18 /wcr68-37Jlnehsscu 19th, 2025 8:21amOxygen saturation by Pulse zcgfnahd34 %95-100Sept2024 8:21amBP Swpnlbrl863 mm[Hg]100-140Sept2024 8:21amBP Hrflpgadg49 mm[Hg]60-100September 2024 8:21amBody Hruexormgdi57.3 [degF]97.6-99.0 September 06, 2025 4:52pmHeart Sazc010 /azh75-636Ykhqtdo 2024 4:52pm Respiratory rate18 /pyt85-28Yokqqhv 2024 4:52pmOxygen saturation by Pulse ubvejwdm48 %95-100October 2024 4:52pmBP Txbtohco087 mm[Hg]100-140October 2024 4:52pmBP Ejedwdalx48 mm[Hg]60-100October 2024 4:11buGpjlnm47 [in_i]September 21, 2025 10:71scNyyvbz45.74 kgNov2024 10:33amBody Wopmhivtsbv23.9 [degF]97.6-99.0September 21, 2025 10:33amHeart Rate74 /zbc92-742 September 21, 2025 10:33amRespiratory rate12 /jwq10-05YufoqeggSeptember 21, 2025 10:33am Oxygen saturation by Pulse ievjcayk10 %95-100September 21, 2025 10:33amBP Aotvnnip790 mm[Hg]100-140September 21, 2025 10:33amBP Asjjkczby78 mm[Hg]60-100 September 21, 2025 10:33amBMI (Body Mass Index)24.9 kg/r3TmdgajuzSeptember 21, 2025 10:33am Advance Directives Advance Directive Response Recorded Date/ Time Advance Directives No May 08 1:58pm Insurance Providers Guarantor Radha Raul [employer] Address [address] [place] [id number] Info.Home Phone: Coverage Status Update:2025 Payer Group Member ID Coverage Type Subscriber Relationship to Subscriber Effective Date Expiration Date [employer] Id: [id number] Himme Id: [id number] [address] [place] [address] Home Phone: Email: [email or web address] Active 62% [birth year][address] [place] [address] Work Phone: [phone] A Himme Id: [id number] [address] [place] [address] Home Phone: Email: [email or web address] Pay nullSelfSelf Encounters Encounter Location(s) Arrival/Admit Date Discharge/Departure Date Discharge/Departure Disposition Provider(s) Non-patient / Non-visit -[facility] 2024 7:05am Imad Asaad , MDDeparted Physician/Provider Office Visit-[facility] September 06, 2025 5:37pmOctober 2024 6:24pmDischarged to home care or self care (routine discharge)Ness Lemon APRNDeparted Clinical-Lab [facility] 2024 6:20pmOctober 2024 6:21pmDischarged to home care or self care (routine discharge)Ness Lemon APRNDeparted Physician/Provider Office Visit-[facility] Family [facility] 11:21amDischarged to home care or self care (routine discharge)GHULAM Monique Recent Diagnosis Onset Date Admit Date Chills Unknown September 06 5:37pm Alcoholic cirrhosis of liver with ascites Unknow n September 21, 2025 10:23am Anxiety Unknown September 21 10:23am Encounter for wellness examination Unknown September 21, 2025 10:23am Fatigue Unknown September 21 10:23am Low thyroid stimulating hormone (TSH) level Unkn own September 21, 2025 10:23am Assessments Diagnosis Onset Date Resolution Status Admit Date Chills resolvedSeptember 06, 2025 5:37pmAlcoholic cirrhosis of liver with ascitesacute September 21, 2025 10:23amAnxietyacuteSeptember 21, 2025 10:23amEncounter for wellness examinationacuteSeptember 21, 2025 10:23amFatigueacuteSeptember 21, 2025 10:23amLow thyroid stimulating hormone (TSH) levelacuteSeptember 21, 2025 10:23am Plan of Treatment Author [facility] 5:53pmRapid strep negative in office today. Will send throat culture, as she is concerned that she may have a throat infection. Her daughter was sick 2 weeks ago with strep and MRSA in her throat and was hospitalized. She is concerned that she got something from her. Based on her symptom of chills, and only chills, advised her that it is not likely that she has an upper respiratory infection, but that she may have some other underlying issue that we are unable to diagnose and treat with the resources we have available. Advised that she should seek treatment at ER, as she likely needs bloodwork and possible imaging paired with the fact that she does have cirrhosis. She voices understanding, but reports that she will likely wait for the throat culture results. Advised her that if her symptoms worsen or she does not start feeling better in the next 2 days, she needs to seek treatment. She does not have a PCP currently. Encouraged that she needs to reestablish with a PCP. Author [facility]beth [facility], 2025 6:47amReviewed Ht/Wt/BMI Recommend eye exams yearly Recommend dental exam: twice a year Balance work/leisure activities exercise is recommended most days of the week (appropriate as chronic conditions allow) follow up yearly and prn has seen GI in the past, last seen 11/2024, quit alcohol in 2020 (wine, 1 bottle daily for 8 years) most recent labs in [facility] 06/16/25 most recent [place] Liver: Future Tests Future scheduled test information is unavailable Pending Tests Test Name Ordered Date Scheduled Date Comprehensive Metabolic Panel September 21, 2025 11:11am Vitamin B1 (Thiamine) BloodNovember 2024 11:11am Future Visits Future appointment information is unavailable Future Procedures Procedure Name Ordered Date Scheduled Date Discharge Order August 05, 2025 7:58am Sept ember 2024 7:58am Dipstick and Microscopic September 21, 2025 11:1 1am Vitamin Z43Zyndglpo 2024 11:11amComplete Blood Count Auto DiffNovember 2024 11:11amUrine CultureNovember 2024 11:11amErythrocyte Sedimentation RateNovember 2024 11:13amIron and TIBC ProfileNovember 2024 11:11am HCG,Qualitative SerumNovember 2024 11:11amLipid PanelNovember 2024 11:11amMonotestNovember 2024 11:11amProlactinNovember 2024 11:13am Triiodothyronine (T3) FreeNovember 2024 11:11amFree T4 (Free Thyroxine) September 21, 2025 11:11amThyroid Antibodies TPO+Tg AbNovember 2024 11:11am Thyroid Stimulating HormoneNovember 2024 11:11amVit. B12/Folate Profile September 21, 2025 11:11amVitamin D 25 Hydroxy TotalNovember 2024 11:11am Future Medications Future medication information is unavailable Patient Instructions Instruction Admit Date Esophageal Varices (DC) Know your MedsSeptember 2024 7:05am
--- OUTSIDE RECORDS SUMMARY | 2025-09-23 08:43 | XMS_ITS | Encounter Summary ---
Author Organization [facility] Address [address] [place] [address] Care Team Providers Care Asw Specialist Name Role Phone Shaikh MAXI Deshpande Primary Care Provider [phone] Randal Simms MD Primary Care Provider [phone] Radha Copeland NP Unavailable [phone] Unallocated, [facility] Provider Primary Care Provi cooper Vicky Cedillo MD Unavailable Nav Mulligan LPC Unavailable Unavailable Unallocated, [facility] Provider Primary Care Provi cooper Encounter Details DateTypeDepartmentCare Team (Latest Contact Info)Haapabkclib61/17/2024linisync Result Encounter [facility] External Department Unsolicited Shaikh Deshpande MD [address] [facility] [place] [address] Social History Tobacco UseTypesPacks/DayYears UsedDateSmoking Tobacco: Every DayCigarettes Passive Smoke Exposure: CurrentSmokeless Tobacco: Never Comments:6-10 Alcohol UseStandard Drinks/WeekCommentsNot Currently0 (1 standard drink = 0.6 oz pure alcohol)caffeine intake: 1-2 cups per [id number] Health LiteracyAnswerDate RecordedHow often do you need to have someone help you when you read instructions, pamphlets, or other written material from your doctor or pharmacy? Never11/30/2024Social Connection and Isolation PanelAnswerDate RecordedIn a typical week, how many times do you talk on the phone with family, friends, or neighbors?More than three times a week11/30/2024How often do you get together with friends or relatives?Three times a week11/30/2024How often do you attend mosque or mandaen services?Patient etxdissp53/14/2025Do you belong to any clubs or organizations such as mosque groups, unions, fraE-Buy or athletic virgilio ups, or school groups?Patient xidrjpyp84/14/2025How often do you attend meetings of the clubs or organizations you belong to?Patient szpvtruf97/14/2025re you , , , , never , or living with a partner? Anpbjtwb46/14/2025UDIT-CAnswerDate RecordedQ1: How often do you have a drink containing alcohol?Never11/30/2024Q2: How many drinks containing alcohol do you have on a typical day when you are drinking?Patient does not drink11/30/2024Q3: How often do you have six or more drinks on one occasion?Never11/30/2024Overall Financial Resource Strain (CARDIA)AnswerDate RecordedHow hard is it for you to pay for the very basics like food, housing, medical care, and heating?Somewhat hard11/30/2024PHQ-2AnswerDate RecordedPatient Health Questionnaire-2 Score0 01/10/2025[facility] - Occupational Stress QuestionnaireAnswerDate RecordedDo you feel stress - tense, restless, nervous, or anxious, or unable to sleep at night because yourmind is troubled all the time - these days?Rather much11/30/2024Exercise Vital SignAnswerDate RecordedOn average, how many days per week do you engage in moderate to strenuous exercise (like a brisk walk)?0 days11/30/2024On average, how many minutes do you engage in exercise at this level?0 min11/30/2024Hunger Vital SignAnswerDate Recorded Within the past 12 months, you worried that your food would run out before you got the money to buymore.Never true11/30/2024Within the past 12 months, the food you bought just didn't last and you didn't have money to get more.Never true 11/30/2024PRAPARE - TransportationAnswerDate RecordedIn the past 12 months, has lack of transportation kept you from medical appointments or from getting medications?No11/30/2024In the past 12 months, has lack of transportation kept you from meetings, work, or from getting things needed for daily living?No 11/30/2024Housing Stability Vital SignAnswerDate RecordedIn the last 12 months, was there a time when you were not able to pay the mortgage or rent on time? Patient wljrppic91/14/2025In the past 12 months, how many times have you moved where you were living?t any time in the past 12 months, were you homeless or living in a [place] (including now)?No11/30/2024Comments UnknownSex and Gender InformationValueDate RecordedSex Assigned at BirthFemale 06/19/2023 9:45 AM EDTLegal KduQkxhdp43/15/2023 11:17 PM EDTGender Identity Xgepme3106/19/2023 9:45 AM EDTSexual OrientationNot on filedocumented as of this encounter Functional Status * AUDIT-C ScoreAnswerDate of XlxhktxubcGexdcy160/14/2025 9:20 AM Kendy Blackmon * Q1: How often do you have a drink containing alcohol?AnswerDate of Assessment PdjprsCqlgu49/14/2025 9:20 AM Kendy Blackmon * Q2: How many drinks containing alcohol do you have on a typical day when you are drinking?AnswerDate of AssessmentAuthorPatient does not drink11/30/2024 9:20 AM Kendy Blackmon * Q3: How often do you have six or more drinks on one occasion?AnswerDate of MrnkxtqwqoQclmirLechw11/14/2025 9:20 AM Kendy Blackmon * Over the past 2 weeks, how often have you been bothered by any of the following problems?QuestionAnswerDate of AssessmentAuthorPatient Health Questionnaire-2 Pqvbk417 3:07 PM Delisa Tee LPN * Over the last 2 weeks, how often have you been bothered by any of the following problems?QuestionAnswerDate of AssessmentAuthorFeeling nervous, anxious, or on xxqn821 3:07 PM Delisa Tee LPNNot being able to stop or control qjewbpnh411/24/2025 3:07 PM Juliet Teei, LPNWorrying too much about different zplipr544 3:07 PM ABIMAELCollJuliet castroi LPNTrouble /24/2025 3:07 PM ESTCollJuliet castroi, LPNBeing so restless that it is hard to sit eejrh370 3:07 PM Delisa Tee LPNBecoming easily annoyed or yqokuxrwf732/24/2025 3:07 PM ESTCollJuliet castroi, LPNFeeling afraid as if something awful might ljdkur962 3:07 PM Delisa Tee LPNGAD-7 Total Agwif083 3:07 PM ESTCollJuliet castroi, NIGHT CLEANER * Over the past 2 weeks, how often have you been bothered by any of the following problems?QuestionAnswerDate of AssessmentAuthorLittle interest or pleasure in doing thingsNot at all01/10/2025 3:07 PM ESTCollJuliet castroi, NIGHT CLEANER Feeling down, depressed, or hopelessNot at all01/10/2025 3:07 PM ESTCollJuliet castroi, LPNTrouble falling or staying asleep, or sleeping too muchNot at all 01/10/2025 3:07 PM ESTCollins Delisa, LPNFeeling tired or having little energy Not at all01/10/2025 3:07 PM ESTCollJuliet castroi, LPNPoor appetite or overeating Not at all01/10/2025 3:07 PM ESTCosohail Delisa, LPNFeeling bad about yourself - or that you are a failure or have let yourself or your family downNot at all 01/10/2025 3:07 PM ESTCollJuliet castroi, LPNTrouble concentrating on things, such as reading the newspaper or watching televisionNot at all01/10/2025 3:07 PM ESTCollins, Delisa, LPNMoving or speaking so slowly that other people could have noticed? Or the opposite - being so fidgety or restless that you have been moving around a lot more than usual.Not at all01/10/2025 3:07 PM ESTCollins, Delisa, LPNThoughts that you would be better off or hurting yourself in some wayNot at all01/10/2025 3:07 PM ESTCollins, Delisa, LPNPatient Health Questionnaire-9 Hcorz952 3:07 PM ESTCollins, Delisa, NIGHT CLEANER documented as of this encounter Plan of Treatment DateTypeDepartmentCare Team (Latest Contact Info)Mbcpjbctgaw63/29/2026 4:00 PM EDTOffice Visit [facility] [place] [facility] [address] [place] [phone] Chalo Wick DO [address] [place] [address] documented as of this encounter Procedures Procedure NamePriorityDate/TimeAssociated DiagnosisCommentsUS RIGHT UPPER XSQLAKFW94/17/2024 8:34 AM EDT documented in this encounter Results * US RIGHT UPPER QUADRANT (05/03/2024 8:34 AM EDT)Anatomical RegionLaterality ModalityOtherSpecimen (Source)Anatomical Location / LateralityCollection Method / VolumeCollection TimeReceived Time05/03/2024 8:34 AM EDT Narrative 05/03/2024 8:37 AM EDT [facility] ?[address] ? [place] [address] ? Ultrasound Report ? Signed ? Patient: HIMME,ROCIO A ?MR#: [id number] ?? : 1990 ?Acct:[id number] ?? Age/Sex: 33 / F ?ADM Date: 05/01/24 ?? Loc: US ? Attending Dr: Shaikh Jeramy Cash ? Ordering Physician: Shaikh Shreya Deshpande ?? Date of Service: 05/01/24 ?? Procedure(s): US right upper quadrant ?? Accession Number(s): [id number] ? cc: Shaikh Shreya Deshpande ? [facility] ? [address] ? [place] [address] ? Patient Name: ?? ROCIO A HIMME ? MRN: [facility]:[id number] ? date: 1990 ?Sex: F ?? Assigned Patient Location: [place] ?? Current Patient Location: ? Accession/Order Number: [id number] ?? Exam Date: 05/01/2024 ??10:15 ?Report Date: 05/03/2024 ??08:34 ? At the request of: ?JERAMY ? Procedure: ??US right upper quadrant ? EXAMINATION: US right upper quadrant ? HISTORY: RUQ PAIN R10.11 ? COMPARISON: Ultrasound right upper quadrant 01/03/2024 ? TECHNIQUE: Transabdominal evaluation of the right upper quadrant. ? FINDINGS: ?? LIVER: Small liver with nodular margins. Multiple dilated vessels seen within ?? hilum. Small amount of adjacent free fluid. ?? PORTAL VEIN: Duplex Doppler demonstrates normal hepatopetal flow pattern with ?? flow velocity averaging 22 cm/s. ?? GALLBLADDER: No visible gallstones, wall thickening, or pericholecystic free ?? fluid. Negative sonographic Carreon's sign. ?? BILIARY: Common bile duct is upper limits of normal in diameter, 6 mm. ?? PANCREASE: No visible mass, abnormal atrophy, or duct dilation. ?? KIDNEY: No hydronephrosis. No visible mass or stones. Size: 10.8 x 6.1 x 5.6 ?? cm ? US/US right upper quadrant ?? IMPRESSION: ? 1. Small nodular liver suggestive of cirrhosis. ?? 2. Perihepatic varices suggestive of portal hypertension. ?? 3. Trace amount of free fluid. ? Electronically authenticated by: JUAN JOSE ??MAKAYLA ?? Date: 05/03/2024 ??08:34 ? Dictated By: ?Juan Jose Lang M.D. ? Signed By: ?05/03/24 0837 ? DD/ 0834 ? TD/TT: ? City Constable: Procedure Note Radiology, Radiologist, MD - 05/03/[address] [address] Ultrasound Report Signed Patient: ROCIO HINES [facility]#: [id number] : 1990Acct:[id number] Age/Sex: 33 / FADM Date: 05/01/24 Loc: [place] Attending Dr: Shaikh Jeramy Cash Ordering Physician: Shaikh Shreya Deshpande Date of Service: 05/01/24 Procedure(s): US right upper quadrant Accession Number(s): [id number] cc: Shaikh Shreya Deshpande [place] [address] Patient Name: ROCIO HINES MRN: [id number] date: 1990 Sex: F Assigned Patient Location: [place] Current Patient Location: Accession/Order Number: [id number] Exam Date: 05/01/2024 10:15 Report Date: 05/03/2024 [...] Juan Jose Lang M.D. Signed By:05/03/2437 DD/ TD/TT: City Constable: Authorizing ProviderResult TypeResult Statusmalik Deshpande MDCLINISYNC IMAGING Final Result documented in this encounter Visit Diagnoses Not on filedocumented in this encounter Care Teams Team MemberRelationshipSpecialtyStart DateEnd Date Shaikh Deshpande MD PCP - GeneralInternal Medicine Randal Simms MD [facility]06/30/2410 Unallocated, Jonathan Pena MD [address] [place] [address] PCP - [facility] Ljhohvrl77/21/ Unallocated, Jonathan Pena MD [address] [place] [address] [facility] - [facility] Medicine01/18/25 Radha Copeland NP Nurse PractitionerBrockton [facility] Medicine06/30/24 Vicky Cedillo MD [address] [place] [address] Referring BlaxffywbIdrdjqtpwajwjxfk07/23/24 Nav Mulligan LPC Social WorkerC[facility] Hospital Health12/22/2509documented as of this encounter
--- OUTSIDE RECORDS SUMMARY | 2025-09-23 08:43 | XMS_ITS | Encounter Summary ---
Author Organization [facility] Address [address] [facility] [place] [address] Care Team Providers Care Sole Cutter Name Role Phone Dinorah Radha MENDOZA Unavailable [phone] Vicky Cedillo MD Unavailable Unallocated, [facility] Provider Primary Care Provi cooper Encounter Details DateTypeDepartmentCare Team (Latest Contact Info)Qsabehxholh02/29/2025Telephone [facility] [address] [place] [phone] Nav Mulligan LPC Social History Tobacco UseTypesPacks/DayYears UsedDateSmoking Tobacco: Every DayCigarettes Passive Smoke Exposure: CurrentSmokeless Tobacco: Never Comments:6-10 Alcohol UseStandard Drinks/WeekCommentsNot Currently0 (1 standard drink = 0.6 oz pure alcohol)caffeine intake: 3 cups per day [id number] Health LiteracyAnswer Date RecordedHow often do you need to have [...] times a week11/30/2024How often do you attend yarsanism or rastafari services?Patient zgygxfiv67/14/2025Do you belong to any clubs or organizations such as yarsanism groups, unions, fraternal or athletic vigrilio ups, or school groups?Patient /14/2025How often do you attend meetings of the clubs or organizations you belong to?Patient dryutmzl17/14/2025re you , , , , never , or living with a partner? Uyvoijbh04/14/2025UDIT-CAnswerDate RecordedQ1: How often do you have a [...] and heating?Somewhat hard11/30/2024PHQ-2AnswerDate RecordedPatient Health Questionnaire-2 Score0 01/10/2025[facility] [place] [facility] Health - Occupational Stress QuestionnaireAnswerDate [...] the mortgage or rent on time? Patient ypfxrydf16/14/2025In the past 12 months, how many times have you moved where you were living?5At any time in the past 12 months, were you homeless or living in a fpc (including now)?No11/30/2024EducationAnswerDate RecordedWhat is the highest level of school you have completed or the highest degree you have received?Bachelor's degree (e.g., BA, AB, BS)4 CommentsNoSex and Gender InformationValueDate RecordedSex Assigned at Fhplge2906/19/2023 9:45 AM EDTLegal LveJjqlsu34/15/2023 11:17 PM EDTGender JkngjouiBgtxhq47/03/2023 9:45 AM EDTSexual OrientationNot on filedocumented as of this encounter Miscellaneous Notes * Telephone Encounter - Nav Mulligan LPC - 09/14/2025 9:44 AM EDT Clinician spoke to client over the phone and explained resignation, offered transfer/referral options, and offered resources. Client declined at this time, said, I'm doing good , and clinician encouraged client to reach out to [facility] if she wants counseling in the future. documented in this encounter Plan of Treatment DateTypeDepartmentCare Team (Latest Contact Info)Jtpjnmjttvp53/29/2026 4:00 PM EDTOffice Visit [facility] [place] [facility] [address] [place] [address] Chalo Wick DO [address] [place], [place] [id number] documented as of this encounter Visit Diagnoses Not on filedocumented in this encounter Additional Health Concerns AssessmentNoted TimePHQ-9 Depression Total Score: 3:07 PM EST documented as of this encounter Care Teams Team MemberRelationshipSpecialtyStart DateEnd Date Unallocated, [facility] Provider, [address] [place] [address] PCP - GeneralFamily Medicine01/18/25 Radha Copeland NP Nurse PractitionerFamily Medicine06/30/24 Vicky Cedillo MD Referring IaejvfrfoItirwhleiyqoahcq27/23/24documented as of this encounter
--- OUTSIDE RECORDS SUMMARY | 2025-09-23 08:43 | XMS_ITS | CCD ---
Author Organization [facility] Care Team Providers Care Armored Car Driver Name Role Phone Rodney Castañeda Unavailable Charlene Owens Unavailable Sydnee Kong Unavailable FAWWAD, CARNEY H Primary Care Unavailable ASAAD, IMAD Admitting Unavailable ASAAD, IMAD Attending Unavailable ASAAD, IMAD Consulting Unavailable WEST, DR RDONEY Recio Consulting Unavailable REQUEST, DR NONE LISTED Primary Care Unavaila ble FAWWAD, CARNEY H Admitting Unavailable FAWWAD, CARNEY H Attending Unavailable FAWWAD, CARNEY H Consulting Unavailable SHAMIKA ., DR RAMIREZ Attending Unavailable SHAMIKA ., DR RAMIREZ Consulting Unavailable SHAMIKA ., DR RAMIREZ Admitting Unavailable REQUEST, NONE LISTED Primary Care Unavaila RODNEY De La Cruz Consulting Unavailable SHAMIKA ., DR RAMIREZ Consulting Unavailable SHAMIKA ., DR RAMIREZ Admitting Unavailable SHAMIKA ., DR RAMIREZ Attending Unavailable REQUEST, DR NONE LISTED Primary Care Unavaila ble FAWWAD, CARNEY H Primary Care Unavailable SHAMIKA ., DR RAMIREZ Consulting Unavailable SHAMIKA ., DR RAMIREZ Admitting Unavailable SHAMIKA ., DR RAMIREZ Attending Unavailable ZIEBER, DR [...] Provider MIKIE Perera Attending Provider MD Vicky Gates Attending Provider Randal Simms MD Primary Care Provider [phone] Dinorah PROVISIONING ANALYST, Ed Unavailable Unallocated MD, Rebecas Provider Primary Care Provi cooper Mamadou GERMAN, Imad Unavailable Mamadou GERMAN, Imad Attending Provider [phone] Dinorah PROVISIONING ANALYST-CEd Primary Care Provid er Nav Guzmán LPC Unavailable Unavailable Dinorah PROVISIONING ANALYST, Ed Unavailable [phone] Unallocated , Rebecas Provider Primary Care Provi cooper Mamadou GERMAN, Imad Unavailable ED COPELAND Attending UnavailBOBO Salinas Attending Unavailable NAV GUZMÁN Attending Unavailable BOBO TRINIDAD Attending Unavailable ANV GUZMÁN Attending Unavailable NAV GUZMÁN Attending Unavailable ED COPELAND Attending UnavailBOBO Salinas Attending Unavailable ED COPELAND Referring UnavailNAV Lord Attending Unavailable NAV GUZMÁN Attending Unavailable RICHIEINAV Attending Unavailable RICHIEINAV Attending Unavailable CHALO HOFFMAN Attending Unavailable NAV GUZMÁN Attending Unavailable Mamadou GERMAN, Imsimi Attending Provider [phone] Mamadou GERMAN, Imsimi Other Provider NO FAMILY, PHYSICIAN Primary Care Provider Unava ilNess Livingston APRN Attending Provider Asaad, Imad Admitting Unavailable NO FAMILY, PHYSICIAN Primary Care Unavailable Asaad, Imad Attending Unavailable Ness Lemon Attending Unavail able Ness Lemon Admitting Unavail able Asaad, Imad Admitting Unavailable Ed Copeland Primary Care Unavaila ble Asasimi, Imad Attending Unavailable Jeramy GERMAN, Primary Care Provider Shaikh eDshpande MD Primary Care Provider Randal Simms MD Primary Care Provider Mamadou GERMAN, Imsimi Unavailable Mamadou GERMAN, Vicky Attending Provider [phone] Mamadou GERMAN, Vicky Other Provider NO FAMILY, PHYSICIAN Primary Care Provider Unahi Ness Richard APRN Attending Provider Graciela MENDOZA-CLizbeth Primary Care Provider Graciela MENDOZA-C, Lizbeth Marmolejo Attending Provider Allergies Allergy ClassificationReported Allergen(s)Allergy TypeDate of OnsetReaction(s) Facility (20 sources)Penicillin GDrug Knnjlob01-90-7033apdkmnThe [facility] (1 source)CiprofloxacinDrug Aneqtna15-67-5549Zcf [facility] Repository (1 source)PenicillinDrug Lrtictf58-14-6233Ozl [facility] Repository (20 sources)Penicillins; Translations: [Penicillins]Propensity to adverse eenlhixqz92-18-0847ZsssxhyjEegugqhvwFisher[facility] (20 sources)Sulfamethoxazole; Translations: [sulfamethoxazole]Drug Allergy 85-78-2943H[facility]nedMem[facility] (20 sources)Trimethoprim; Translations: [trimethoprim]Drug Olhunuf91-53-7872 [facility] (20 sources)CiprofloxacinDrug Eploiqy83-26-0988[facility] Work Phone: (1 source)PenicillinDrug Dveuumt42-84-1190SrdngtaoaLakehealth [facility] Repository Medications Current Medications MedicationDrug Class(es)DatesSig (Normalized)Sig (Original)cefdinir 300 mg oral capsule (1 source)Cephalosporin AntibacterialStart: 03-64-9883Ercxndbb 300 MG as directed Orally BID for 10 days Oct, Activecetirizine hydrochloride 10 mg oral tablet (1 source)Histamine-1 Receptor AntagonistStart: 74-52-4349gvql 1 tablet by mouth every twelve hoursCetirizine HCl 10 MG 1 tablet Orally Twice a day for 14 days Oct, Activedicyclomine hydrochloride 20 mg oral tablet (5 sources)AnticholinergicStart: 65-70-3080uipu 1 tablet by mouth every six hoursDicyclomine HCl 20 MG 1 tablet Orally FOUR TIMES A DAY for 30 day(s) Apr, ActiveStart: 31-81-3491bmwa 1 tablet by mouth every six hours Dicyclomine HCl 20 MG 1 tablet Orally qid for 30 day(s) Jun, Not-Taking docusate sodium 100 mg oral capsule (5 sources)Start: 05-11-2025 End: 47-45-6991jkkb 1 capsule by mouth twice daily as needed for constipation docusate sodium (Colace) 100 MG capsule Indications: Constipation, unspecified constipation type Take 1 capsule (100 mg) by mouth 2 (two) times a day as needed for constipation 60 capsule 05/11/2025 06/10/2025 Activefluticasone propionate 0.05 mg/actuat metered dose nasal spray (1 source)CorticosteroidStart: 07-48-7986vqpd 1 spray(s) nasal route once daily Flonase Allergy Relief 50 MCG/ACT 1 spray in each nostril Nasally Once a day for 14 day(s) Oct, ActiveProbiotic (3 sources)Probiotic Activethiamine 100 mg oral tablet (20 sources)Start: 36-85-1608auyf 1 tablet by mouth once dailyThiamine Hcl (Vitamin B1) 100 mg tablet Active 100 MG PO Daily September 21, 2025 12:00am Complies with drug therapyStart: 08-08-2023 End: 71-62-4991hydu 1 tablet by mouth every other dayThiamine Mononitrate (Vit B1) (Vitamin B-1 (Mononitrate)) 100 mg tablet Discontinued 100 MG PO every other day August 07, 2023 11:00pm September 21, 2025 10:30amStart: 08-08-2023 End: 52-00-3610bqhl 1 tablet by mouth once dailythiamine (,Vitamin B-1,) 100 MG tablet Indications: Alcohol use disorder in remission Take 1 tablet(100 mg) by mouth Daily 12/07/2024 05/11/2025 Discontinued (Other)Vitamin B1 (14 sources)Vitamin B1 Activezolpidem tartrate 5 mg oral tablet (20 sources)gamma-Aminobutyric Acid-ergic AgonistStart: 05-12-2024 End: 66-06-1355gzuhfnly (Ambien) 5 MG tablet Indications: Psychophysiological insomnia Take 1 tablet (5 mg) by mouth as needed at bedtime for sleep 30 tablet 09/06/2024 ActiveStart: 03-38-4850exbs 2.5 mg by mouth once daily as needed for sleepZolpidem 5 mg tablet Active 2.5 MG PO Daily as needed for sleep April 16, 2024 4:39pm Complies withdrug therapyStart: 42-19-6580hgeu 2.5 mg by mouth once dailyZolpidem Active 2.5 MG PO Daily April 16, 2024 5:39pmStart: 08-08-2023 End: 28-39-8487scgw 1 tablet by mouth once dailyZolpidem 5 mg tablet Discontinued 5 MG PO Daily August 07, 2023 11:00pm April 16, 2024 4:39pm Ambien PRN ActiveAmbien Active Completed/Discontinued Medications MedicationDrug Class(es)DatesSig (Normalized)Sig (Original)ALPRAZolam 0.25 mg oral tablet (17 sources)BenzodiazepineStart: 07-11-2021 End: 35-83-3118Eqyxitixrl 0.25 mg tablet Discontinued 0.25 MG PO As Directed July 10, 2021 11:00pm August 08, 2023 7:40amALPRAZolam PRN Active ALPRAZolam ActiveCranberry Conc-Ascorbic Acid (9 sources)Non-Standardized Food Allergenic Extract, Non-Standardized Plant Allergenic Extract, Vitamin CStart: 06-09-2021 End: 09-15-8623morz 2 capsules by mouth once dailyCranberry Conc-Ascorbic Acid 4,200-20 mg Capsule Discontinued 2 CAP PO Daily June 09, 2021 12:00am July 11, 2021 11:07amStart: 06-09-2021 End: 89-05-7547wdkf 2 capsules by mouth once dailyCranberry Conc-Ascorbic Acid 4,200-20 mg Capsule Discontinued 2 CAP PO Daily June 08, 2021 11:00pm July 11, 2021 10:07amStart: 06-09-2021 End: 06-16-7900evmz 2 capsules by mouth once dailyCranberry Conc-Ascorbic Acid Discontinued 2 CAP PO Daily June 09, 2021 12:00am July 11, 2021 11:07am Ascorbic Gyou-Mrwlxczl-Afy (Emergen-C) 1,000 mg Powder Effervescent In Packet (9 sources)Start: 06-09-2021 End: 93-47-8083Ivlqgllx Xttn-Ulbdozuj-Plf (Emergen-C) 1,000 mg Powder Effervescent In Packet Discontinued 1 EACH PO Daily June 08, 2021 11:00pm April 16, 2024 4:38pmStart: 06-09-2021 End: 47-60-7434Xqggpgpp Ixcy-Laufbehq-Eck (Emergen-C) 1,000 mg Powder Effervescent In Packet Discontinued 1 EACH PO Daily June 09, 2021 12:00am April 16, 2024 5:38pmStart: 20-06-3270Ycgtmocv Nphq-Ymkiohpk-Hqf (Emergen-C) 1,000 mg Powder Effervescent In Packet Active 1 EACH PO Daily June 09, 2021 12:00am 24 hr buPROPion hydrochloride 150 mg extended release oral tablet (9 sources)AminoketoneStart: 08-08-2023 End: 85-12-3585kxyb 1 tablet by mouth once dailyBupropion Hcl 150 mg tablet extended release 24 hr Discontinued 150 MG PO Daily August 07, 2023 11:00pm August 08, 2023 7:41amcefTRIAXone (10 sources)Cephalosporin AntibacterialStart: 00-35-8781Ouahdepy 500 mg Jan, 500 mgcyclobenzaprine hydrochloride 5 mg oral tablet (5 sources)Muscle RelaxantStart: 04-13-2025 End: 13-29-8631nheg 1 tablet by mouth three times daily as needed for muscle spasmsCyclobenzaprine 5 mg tablet Discontinued 5 MG PO Three times daily as needed for muscle spasm 9 3 0May 2024 11:00pm July 22, 2025 10:39am dextromethorphan hydrobromide 15 mg / guaiFENesin 400 mg / pseudoephedrine hydrochloride 60 mg oraltablet (8 sources)alpha-Adrenergic Agonist, Uncompetitive A-ryimzv-P-aspartate Receptor Antagonist, Sigma-1 AgonistStart: 04-16-2024 End: 08-80-6637blxn 4 tablets by mouth every twenty-four hours as needed Bszkjomhbsgzogh-Dy-Kxkxotoovai (Capmist Dm) 60-15-400 mg tablet Discontinued 1 TAB PO EVERY 4-6 HOURS as needed for cold symptoms 30 0 April 15, 2024 11:00pm December 13, 2024 3:28pm do not exceed 4doses per 24 hrsfolic acid 1 mg oral tablet (20 sources)Start: 07-11-2021 End: 89-97-7214gbuu 1 tablet by mouth once dailyFolic Acid 1 mg tablet Discontinued 1 MG PO Daily 30 3 August 17, 2024 12:15pm April 13, 2025 3 :03pm Take 1 tablet orally once a day.Folic Acid Activefurosemide 20 mg oral tablet (20 sources)Loop DiureticStart: 05-25-2024 End: 89-90-7722Rgshqrmeyd 20 mg tablet Discontinued 20 MG PO December 13, 2024 12:00am December 13, 2024 3:45pmStart: 04-16-2024 End: 42-69-4681Okpvcldfwm 40 mg tablet Discontinued 20 MG PO As Directed as needed for water retention 30 30 2 August 17, 2024 12:17pm December 13, 2024 3:27pmStart: 51-63-0326Zaregxaxov Active 20 MG PO As Directed April 16, 2024 5:38pmStart: 54-90-3726jpuo 1 tablet by mouth every twenty-four hoursFurosemide 20 MG 1 tablet Orally Once a day for 30 days Nov, Not-TakingStart: 07-11-2021 End: 36-31-1489Fdtdtnjtbq 40 mg tablet Discontinued 40 MG PO As Directed as needed for water retention July 10, 2021 11:00pm April 16, 2024 4:39pm Furosemide Activehyoscyamine sulfate 0.125 mg disintegrating oral tablet (9 sources)Start: 05-04-2024 End: 56-80-1958gjjf 2 tablets by mouth every six hourshyoscyamine (Anaspaz) 0.125 MG disintegrating tablet Indications: RUQ abdominal pain Take 2 tablets (0.25 mg) by mouth every 6 (six) hours if needed (Abdominal Pain) 30 tablet 1 05/04/2024 4Discontinued (Discontinued by another clinician)Start: 64-73-8633qorl 1 tablet under the tongue twice daily as neededHyoscyamine Sulfate SL 0.125 MG 1 tablet under the tongue and allow to dissolve as needed Sublingual TWICE A DAY for 30 days March, ActivelevoFLOXacin 750 mg oral tablet (9 sources)Quinolone AntimicrobialStart: 06-11-2021 End: 14-05-1973irlj 1 tablet by mouth once dailyLevofloxacin 750 mg tablet Discontinued 750 MG PO Daily 5 5 0 June 10, 2021 11:00pm July 11, 2021 10:08amlidocaine 0.05 mg/mg medicated patch (5 sources)Antiarrhythmic, Amide Local AnestheticStart: 04-13-2025 End: 88-24-2872rdosw 1 dose topically once daily as needed for painLidocaine 5 % adhesive patch,medicated Discontinued 1 PATCH TOPICAL Daily as needed for pain 15 0 April 12, 2025 11:00pm July 22, 2025 10:39am leave on most painful area for up to 12 hrsloperamide hydrochloride 2 mg oral capsule (9 sources)Opioid AgonistStart: 06-11-2021 End: 30-39-7054ubvx 1 capsule by mouth once daily in the morningLoperamide (Anti-Diarrheal (Loperamide)) 2 mg Capsule Discontinued 1 PO Every morning June 10, 2021 11:00pm June 11, 2021 2:47pmloratadine 10 mg oral tablet (9 sources)Start: 02-29-2024 End: 79-79-6668rogq 1 tablet by mouth once dailyloratadine (Claritin) 10 MG tablet Indications: Idiopathic urticaria Take 1 tablet (10 mg) by mouthDaily 90 tablet 1 02/29/2024 11/08/2024 Discontinued (Therapy completed)meloxicam (7 sources)Nonsteroidal Anti-inflammatory DrugMeloxicam Not-TakingMeloxicam ActivemethylPREDNISolone 4 mg oral tablet (2 sources)CorticosteroidMedrol 4 MG as directed Orally as directed for 6 days Not-Cbkjrn14 hr nicotine 0.875 mg/hr transdermal system (9 sources)Cholinergic Nicotinic AgonistStart: 06-11-2021 End: 83-71-5135tnxhi 1 dose transdermal route every twenty-four hoursNicotine 21 mg/24 hr Patch 24 Hour Discontinued 1 PATCH TRANSDERML Q24H 7 0 June 10, 2021 11:00pmAugust 2020 10:08amofloxacin 3 mg/ml ophthalmic solution (8 sources)Quinolone AntimicrobialStart: 04-16-2024 End: 57-43-0355gndu 0.3 drop(s) into the eye(s) four times dailyOfloxacin 0.3 % drops Discontinued 2 DROPS OPHTHALMIC Four times daily 10 7 April 15, 2024 11:00pm December 13, 2024 3:27pm to right eyeStart: 00-09-6886sjhe 1 drop(s) into the eye(s) four times dailyOfloxacin Active 2 DROPS OPHTHALMIC Four times daily 10 April 16, 2024 12:00am to right eyeondansetron 4 mg disintegrating oral tablet (4 sources)Serotonin-3 Receptor AntagonistStart: 04-14-2025 End: 10-35-8366sldk 1 tablet by mouth every eight hours as needed for nausea and vomitingOndansetron 4 mg tablet,disintegrating Discontinued 4 MG PO Every 8 hours as needed for nausea and vomiting 7 3 0 April 13, 2025 11:00pm July 22, 2025 10:40amoxyCODONE hydrochloride 5 mg oral tablet (20 sources)Opioid AgonistStart: 06-11-2021 End: 05-80-7221Txovivfti (Roxicodone) 5 mg tablet Discontinued 2.5 MG PO Daily as needed for pain 7 5 0 MayAugust 08, 2023 7:40am Spontaneous bacterial peritonitis Cholecystitis Alcoholic cirrhosis of liver with ascites Hepatic cirrhosis Abdominal ascites Varices of spleen Spontaneous bacterial p eritonitis Cholecystitis, unspecified Alcoholic cirrhosis of liver with ascites Unspecified cirrhosis of liver Other ascites Varicose veins of other specified sitesoxyCODONE ER PRN ActiveoxyCODONE ER ActivepredniSONE 20 mg oral tablet (16 sources)Start: 04-13-2025 End: 63-93-8262bcip 2 tablets by mouth once dailyPrednisone 20 mg tablet Discontinued 40 MG PO Daily 10 5 0 April 12, 2025 11:00pm July 22, 2025 10:40amStart: 06-11-2021 End: 81-96-2885yqmr 1 tablet by mouth once dailyPrednisone 20 mg tablet Discontinued 20 MG PO Daily 7 7 0 June 10, 2021 11:00pm August 08, 2023 7:40ampredniSONE Not-Takingpropranolol hydrochloride 10 mg oral tablet (20 sources)beta-Adrenergic BlockerStart: 12-08-2024 End: 51-64-6400ldec 2 tablets by mouth twice daily as needed for anxiety propranolol (Inderal) 10 MG tablet Indications: Social anxiety disorder Take 2 tablets (20 mg) by mouth 2 (two) times a day as needed (social anxiety) for up to 30 doses 60 tablet 3 01/10/2025 ActiveStart: 11-08-2024 End: 42-22-5832mwts 1 tablet by mouth three times daily as needed for anxiety Propranolol 10 mg tablet Discontinued 10 MG PO Three times daily as needed for anxiety December 13, 2024 12:00am September 21, 2025 10:30ampsyllium 400 mg oral capsule (4 sources)Start: 06-11-2021 End: 23-38-7148Eksbcwlj Husk (Metamucil) 0.4 gram Capsule Discontinued 0.4 GM PO Bedtime as needed for fiber June 10, 2021 11:00pm June 11, 2021 2:47pm Psyllium Husk (Metamucil) 0.4 gram Capsule (5 sources)Start: 06-11-2021 End: 97-89-9459Fvwqkajw Husk (Metamucil) 0.4 gram Capsule Discontinued 0.4 GM PO Bedtime as needed for fiber June 11, 2021 12:00am June 11, 2021 3:47pm Start: 06-11-2021 End: 35-62-5430Ksxebqfq Husk (Metamucil) 0.4 gram Capsule Discontinued 0.4 GM PO Bedtime as needed for fiber June 10, 2021 11:00pm June 11, 2021 2:47pm Start: 06-11-2021 End: 35-89-5263Glgsrnzh Husk (Metamucil) 0.4 gram Capsule Discontinued 0.4 GM PO Bedtime June 11, 2021 12:00am June 11, 2021 3:47pmrifAXIMin 550 mg oral tablet (7 sources)Rifamycin AntibacterialStart: 72-02-1182agxx 1 tablet by mouth every twelve hoursXifaxan 550 MG 1 tablet Orally Twice a day for 30 day(s) Nov, Not-Takingspironolactone 25 mg oral tablet (20 sources)Aldosterone AntagonistStart: 07-11-2021 End: 04-14-0079Gljnroujtiqoqs 25 mg tablet Discontinued 25 MG PO As Directed as needed for water retention July 10, 2021 11:00pm December 13, 2024 3:44pm take 1 tablet by mouth every twenty-four hoursSpironolactone 50 MG 1 tablet Orally Once a day ActiveSpironolactone Ozoomf13 hr venlafaxine 37.5 mg extended release oral capsule (17 sources)Serotonin and Norepinephrine Reuptake InhibitorStart: 07-11-2021 End: 59-82-9113xxmr 1 capsule by mouth once daily at bedtimeVenlafaxine 37.5 mg Capsule,Extended Release 24hr Discontinued 37.5 MG PO Daily at bedtime July 102020 11:00pm August 08, 2023 7:40amtake 1 tablet by mouth every twenty- four hoursVenlafaxine HCl 37.5 MG 1 TABLET Orally Once a day Not-Takingtake 2 tablets by mouth every twenty-four hoursVenlafaxine HCl 37.5 MG 2 tablets Orally Once a day ActiveVitamin B Complex (2 sources)Start: 06-09-2021 End: 56-04-3848gygb 1 tablet by mouth once dailyVitamin B Complex Discontinued 1 TAB PO Daily June 09, 2021 12:00am August 08, 2023 8:39amVitamin B Complex Tablet (7 sources)Start: 06-09-2021 End: 22-08-9838cbmn 1 tablet by mouth once dailyVitamin B Complex Tablet Discontinued 1 TAB PO Daily June 09, 2021 12:00am August 08, 2023 8:39am Start: 06-09-2021 End: 06-13-3982fhvf 1 tablet by mouth once dailyVitamin B Complex Tablet Discontinued 1 TAB PO Daily June 08, 2021 11:00pm August 08, 2023 7:39am Problems Active Problems Problem ClassificationProblemDateDocumented DateEpisodic/ChronicAbdominal pain (20 sources)Abdominal pain; Translations: [Unspecified abdominal pain]Onset: 08-21-2021 Resolved: 09-56-2171AgfrwsnmVumtmod on above:Problem List clean-up per request of Phys. EHR CmteAlcohol-related disorders (20 sources)Alcoholic cirrhosis; Translations: [Alcoholic cirrhosis of liver with ascites]Onset: 08-21-2021 Resolved: 06-26-7333LleyhuiAbbvvdc on above:Problem List clean-up per request of Phys. EHR CmteAnxiety disorders (20 sources)Generalized anxiety disorder; Translations: [Generalized anxiety disorder]Onset: 01-28-2024 Resolved: 119425-56-6909ActsermHxsvlee tract disease (9 sources)Cholecystitis; Translations: [Cholecystitis, unspecified]06-09-2021 EpisodicComment on above:Problem List clean-up per request of Phys. EHR Cmte Deficiency and other anemia (1 source)Anemia; Translations: [Anemia, unspecified]61-57-4021Kqxpbjis Esophageal disorders (9 sources)Esophageal varices; Translations: [Esophageal varices without bleeding]06-36-0593RgcgkicKpwpfkmpedvk; infection of eye (except that caused by tuberculosis or sexually transmitteddisease) (7 sources)Acute infectious conjunctivitis; Translations: [Unspecified acute conjunctivitis, right eye]65-59-1819LrbzdfqpHbosbgm and fatigue (20 sources)Fatigue; Translations: [Chronic fatigue, unspecified]Onset: 568439-95-0999YxdrekkLtpxvho and fatigue (2 sources)Fatigue; Translations: [Other fatigue]66-67-0306WyzuubeiQwnintenm disorders (8 sources)Irregular menstruation, unspecified; Translations: [Excessive and frequent menstruation with irregular cycle]Onset: 83-35-6389FcslyuaBrvjnrpialopj mental health disorders (3 sources)Psychophysiologic insomnia; Translations: [Psychophysiologic insomnia]22-52-6845SbbwwskSabyq connective tissue disease (1 source)Pain in right footEpisodicOther diseases of veins and lymphatics (9 sources)Disorder of spleen; Translations: [Varicose veins of other specified sites]56-06-7989EpdtpyodYexqaes on above:Problem List clean-up per request of Phys. EHR CmteOther female genital disorders (2 sources)Abnormal uterine bleeding; Translations: [Abnormal uterine and vaginal bleeding, unspecified]39-93-4519JxguylwZwcfd gastrointestinal disorders (17 sources)Ascites; Translations: [Other ascites]57-47-9308SsllmmhdGkpwwfw on above:Problem List clean-up per request of Phys. EHR CmteOther gastrointestinal disorders (1 source)Other ascitesEpisodicOther gastrointestinal disorders (2 sources)Constipation; Translations: [Constipation, unspecified]05-11-2025 EpisodicOther liver diseases (5 sources)Unspecified cirrhosis of liver; Translations: [UNSPECIFIED CIRRHOSIS OF LIVER]Onset: 24-90-1797HjmlitjDcfep liver diseases (20 sources)Cirrhosis of liver; Translations: [Unspecified cirrhosis of liver] Onset: 556210-81-1117OudgssbQtdsbkp on above:Problem List clean-up per request of Phys. EHR CmteOther screening for suspected conditions (not mental disorders or infectious disease) (10 sources)Ultrasound scan abnormal; Translations: [Abnormal findings on diagnostic imaging of other specifiedbody structures]Onset: 04-16-2022 Resolved: 75-11-4071QtetwvzNoizp screening for suspected conditions (not mental disorders or infectious disease) (13 sources)Encounter for screening for malignant neoplasm of cervix; Translations: [Blood chemistry abnormal]Onset: 77-31-4164MakffvfdFkjxt upper respiratory infections (19 sources)Acute upper respiratory infection, unspecified; Translations: [Sore throat symptom]Onset: 08-15-2021 Resolved: 24-62-6450BtfgyjduSrcpbe media and related conditions (1 source)Other acute nonsuppurative otitis media, bilateralEpisodicPeritonitis and intestinal abscess (9 sources)Primary bacterial peritonitis; Translations: [Spontaneous bacterial peritonitis]81-30-4566FcwocgzcHeuyagp on above:Problem List clean-up per request of Phys. EHR CmteResidual codes; unclassified (2 sources)History of substance abuse; Translations: [Personal history of other specified conditions]78-13-4525GaelcdvjUyyekrpm codes; unclassified (4 sources)Chill; Translations: [Chills (without fever)]16-10-1530Fjlaktup Spondylosis; intervertebral disc disorders; other back problems (4 sources)Sciatica; Translations: [Sciatica, unspecified side]04-13-2025 Episodic Past or Other Problems Problem ClassificationProblemDateDocumented DateEpisodic/ChronicAllergic reactions (20 sources)Idiopathic urticaria; Translations: [Idiopathic urticaria]Onset: 164034-47-8875DbfbarhvGnzmll neoplasm of uterus (1 source)Leiomyoma of uterus, unspecified; Translations: [LEIOMYOMA OF UTERUS UNSPECIFIED]Onset: 43-89-8522SjhvrxwiRcwkskhrseuna and screening for infectious disease (3 sources)Contact with and (suspected) exposure to other viral communicable diseases; Translations: [Contact with and (suspected) exposure to unspecified communicable disease]Onset: 08-15-2021 Resolved: 24-12-8541QdbyxvtdUioe disorders (17 sources)Mood disordersOnset: 337528-10-8898Brnlqlo cyst (6 sources)Other ovarian cyst, left side; Translations: [Unspecified ovarian cyst, left side]Onset: 49-75-8552Gnxyhvqk Results Test NameValueInterpretationReference RangeFacilityAerobic throat cultureOrdered By: Ness Lemon on 38-12-7377Wgogfkvf identified Aer cx Nom (Throat)2 DaysLakehealth Tripoint Medical CenterNo Panel InformationOrdered By: Ness Lemon on 22-74-6934Voelc Strep (POC)[facility] CenterQuick Strep (POC)[facility] CenterThroat Cultureon 15-51-5381Fqayuo cultureModerate Normal Respiratory Sylvie 2 Days PERFORMED BY: [place] [address] PATHOLOGIST RESTORATIVE CARE TECHNICIAN STEFANY HERNANDEZ M.D.NormalThe [facility] Physician GroupComment on above: Performed By: #### CUT #### [place] [address] USAHCG,Qualitative Serumon 14-52-4558WXW,Qualitative Serum NegativeNormMercy Healthe [facility]ata[facility] Center Physician GroupComment on above:Result Comment: PERFORMED BY: [facility] [address] [place] [address] PATHOLOGIST RESTORATIVE CARE TECHNICIAN STEFANY HERNANDEZ M.D.Performed By: #### HCGQUAL #### [facility] [address] [id number] USAALL CBC WITH AUTO DIFFon 80-37-1883MMMJSDTXT ABSOLUTE AUTO 0NOMS HealthcareBasophils/100 WBC (Bld)0.5 %0.2 - 2.0 %[facility] Eosinophils/100 WBC (Bld)4.2 %0.9 - 7.0 %NOMS HealthcareErythrocyte distribution width (RBC) [Ratio]13.1 %11.0 - 15.0 %NOMS HealthcareHematocrit (Bld) [Volume fraction]37.5 %36.0 - 48.0 %NOMS HealthcareHemoglobin (Bld) [Mass/Vol]12.3 g/dL 12.0 - 16.0 g/dLNOSD HealthcareIMMATURE GRANULOCYTES ABS AUTO0.01[facility] Immature granulocytes/100 WBC (Bld)0.2 %0.0 - 0.5 %NOMS HealthcareInterpretation and review of laboratory resultsAbnormalNOMS HealthcareLYMPHOCYTES ABSOLUTE [id number] HealthcareLymphocytes/100 WBC (Bld)34.4 %20.5 - 60.0 %[facility] MCH (RBC) [Entitic mass]30.9 pg26.7 - 34.[address] Charles HospitalMCHC (RBC) [Mass/Vol]32.8 g/dL29.9 - 35.2 g/dLNOEllis Fischel Cancer CenterMCV (RBC) [Entitic vol]94.2 fL 81.0 - 99.0 fLNOSD HealthcareMONOCYTES ABSOLUTE AUTO0.4[facility] Monocytes/100 WBC (Bld)6.2 %1.7 - 12.0 %NOMS HealthcareNEUTROPHILS ABSOLUTE AUTO 3.2NOMS HealthcareNeutrophils/100 WBC (Bld)54.5 %43.0 - 75.0 %[facility] Platelet mean volume (Bld) [Entitic vol]9.4 fLLow9.5 - 13.5 fLNOMS HealthcareTBH EO #0.3NOMS HealthcareTBH [id number] HealthcareTBH RBC3.98LowNOMS HealthcareTBH WBC5.9NOMS HealthcareCLINISYNCNOMS HealthcareIGP,APTIMA HPV,AGE GDLNon 75-72-5560KJJ GDLN ACOG TESTINGNote.NOMS HealthcareComment on above:TESTS RESULT FLAG UNITS REF RANGE LAB Clinician Provided Cytology Information Source.............Cervix;Endocervix No. of containers..01 ThinPrep Vial Age Algo ACOG Nora... FLAG LEGEND: L-Low Normal,H-High Normal,LL-Alert Low,HH-Alert High <-Panic Low,>-Panic High,A-Abnormal,AA-Critical Abnormal Performed at: 01 =[facility] [place] [address] Pau Calvin MD, HPV APTIMANegativeNegativeNOSD HealthcareComment on above:This nucleic acid amplification test detects fourteen high- risk HPV types (16,18,31,33,35,39,45,51,52,56,58,59,66,68) without differentiation. Performed at: =[facility] [id number] Environmental Services Tech: Pau Calvin MD, Phone: [phone] Performed at: - [facility], [place] [id number] Environmental Services Tech: Pau Calvin MD, Phone: [phone] IGP, APTIMA HPV, RFX 16/18,45Note.NOMS HealthcareComment on above:TESTS RESULT FLAG UNITS REF RANGE LAB DIAGNOSIS: 02 NEGATIVE FOR INTRAEPITHELIAL LESION OR MALIGNANCY. Specimen adequacy: 02 Satisfactory for evaluation. Endocervical and/or squamous metaplastic cells (endocervical component) are present. Performed by: Nicki Saul, Cost And Risk Analysis Manager ([facility]) . 02 Note: Note 02 The Pap smear is a screening test designed to aid in the detection of premalignant and malignant conditions of the uterine cervix. It is not a diagnostic procedure and should not be used as the sole means of detecting cervical cancer. Both false-positive and false-negative reports do occur. Test Methodology: Note 02 This liquid based ThinPrep(R) pap test was screened with the use of an image guided system. HPV Genotype Reflex Note 02 Criteria not met, HPV Genotype not performed. FLAG LEGEND: L-Low Normal,H-High Normal,LL-Alert Low,HH-Alert High <-Panic Low,>-Panic High,A-Abnormal,AA-Critical Abnormal Performed at: [facility] [address] [place] [address] Pau Calvin MD, BRUSH-SPATULA CERVIX ENDOCERVIX CLINISYNCNOMS HealthcareINR in Platelet poor plasma by Coagulation assayOrdered By: Vicky Gates on 86-65-3986BLP Coag (PPP) [Relative time]INR in Platelet poor plasma by Coagulation assayLakehealth Tripoint Medical CenterComment on above:INR Therapeutic Range A) Pre- and Peroperative OAT started two weeks before surgery. NOT HIP SURGERY: 1.5 - 2.5 HIP SURGERY: 2 - 3B) Primary and secondary prevention of venous THROMBOSIS: 2 - 3C) Active venous thrombosis, pulmonary embolismand prevention of recurrent venous thrombosis: 2 - 3D) Prevention of arterial thromboembolismincluding patients with mechanical heart valves: 3 - 4.5 Prothrombin Time INRon 69-78-5488WSZ Coag (PPP) [Relative time]1.1 {INR}Normal [facility] Physician GroupComment on above:Result Comment: INR Therapeutic Range A) Pre- and Peroperative OAT started two weeks before surgery. NOT HIP SURGERY: 1.5 - 2.5 HIP SURGERY: 2 - 3 B) Primary and secondary prevention of venous THROMBOSIS: 2 - 3 C) Active venous thrombosis, pulmonary embolism and prevention of recurrent venous thrombosis: 2 - 3 D) Prevention of arterial thromboembolism including patients with mechanical heart valves: 3 - 4.5 PERFORMED BY: [address] [address] PATHOLOGIST RESTORATIVE CARE TECHNICIAN JULIETA LU M.D.Performed By: #### PT #### [facility] [address] [place] [address] USAPT Coag (PPP) [Time]12.7 sNormal9.0-12.9The [facility] Physician GroupComment on above:Result Comment: A hematocrit value greater than 55% may lead to inaccurate results in coagulation testing. Patients having hematocrit values >55% require a special collection tube for coagulation studies. Please contact the laboratory at [phone] for redraw instructions.Performed By: #### PT #### [facility] [address] [place] [address] USAProthrombin time (PT)Ordered By: Vicky Gates on 12-25-2024 PT Coag (PPP) [Time]Prothrombin time (PT)9.0-12.9Fire[facility] Regional Medical CenterComment on above:A hematocrit value greater than 55% may lead to inaccurate results in coagulation testing. Patientshaving hematocrit values >55% require a special collection tube for coagulation studies. Please contact the laboratory at [phone] for redraw instructions.US liveron 23-90-4388AS [facility] [place] [address] Ultrasound Report Signed with Addenda Patient: Radha Hines MR#: [id number] : 1990 Acct:[id number] Age/Sex: 34 / F ADM Date: 12/25/24 Loc: Room: Type: [facility] Attending Dr: Vicky Gates MD Ordering Provider: Vicky Gates MD Date of Service: 12/25/24 US/US liver: K70.31 - Alcoholic cirrhosis of liver with ascites Copies to: Vicky Gates MD ADDENDUM 1 Addendum requested by the referring clinician. No ascites is noted. Impression dictated by: Emil Da Silva Jr., D.O.01/25/2025 9:20 AM Dictation Location: [facility]- Addendum Dictated By: Emil Da Silva Jr, DO Addendum Signed By: 01/25/25919 Addendum Cosigned By: DD/ /11/919 TD/TT: 01/25/2510/11/920 EXAMINATION TYPE: US liver DATE OF EXAM ORDERED: 12/25/2024 9:39 AM HISTORY: Alcoholic cirrhosis of liver, ascites COMPARISON: 04/25/2022 TECHNIQUE: Realtime imaging limited to the right upper quadrant was performed. FINDINGS: The gallbladder appears within normal limits without evidence of cholelithiasis. The gallbladder wall measures 1 mm in thickness. The common bile duct measures 5 mm in diameter. No intrahepatic or extrahepatic biliary dilatation is seen. The liver is normal in echo reflectivity. The liver is lobulated in contour consistent with a history of hepatic cirrhosis. There is hepatopedal flow the main portal vein. Partial visualization of the right kidney reveals no gross hydronephrosis. Partial visualization of the pancreas reveals no abnormality. ? US/US liver IMPRESSION: No evidence of acute cholecystitis. No intrahepatic or extrahepatic biliary ductal dilatation. The liver is lobulated in contour consistent with a history of hepatic cirrhosis. Impression dictated by: Ishmael Nelson M.D.12/25/2024 10:53 AM Dictation Location: [place] [address] Tech: Ly Leigh Transcribed By: JOLENE 12/25/24 1053 Dictated By: Ishmael Nelson II, MD 12/25/24 1047 Signed By: 12/25/24 1053[facility] Physician GroupCCF FERRITINon 10-25-2024 Ferritin [Mass/Vol]31 ng/mL8.0 - 252.0 ng/mLNOMS St. Charles HospitalCLINISYNCNMercy Hospital St. John'sMETRO IRON AND TIBCon 08-96-7652VNW IRON62 ug/dL50.0 - 170.0 ug/dLNOEllis Fischel Cancer CenterTB PERCENT IRON PNWGSNMNHO55.1 %[facility]S [facility] HospitalTB TOTAL IRON BINDING DPRSLPGW356 ug/dL250.0 - 450.0 ug/dLNOEllis Fischel Cancer CenterCLINISYNCNMercy Hospital St. John'sOCCULT BLOOD*on 61-14-6013OQQ OCCULT BLOODNegativeNOEllis Fischel Cancer Center CLINISYNCNOSD HealthcareALL CBC WITH AUTO DIFFon 02-94-5800RQNMDOYFK ABSOLUTE LFPZ0WWTU HealthcareBasophils/100 WBC (Bld)0.3 %0.2 - 2.0 %[facility] Eosinophils/100 WBC (Bld)2.8 %0.9 - 7.0 %NOMS HealthcareErythrocyte distribution width (RBC) [Ratio]12.6 %11.0 - 15.0 %NOMS HealthcareHematocrit (Bld) [Volume fraction]38.6 %36.0 - 48.0 %NOMS HealthcareHemoglobin (Bld) [Mass/Vol]12.8 g/dL 12.0 - 16.0 g/dLNOEllis Fischel Cancer CenterIMMATURE GRANULOCYTES ABS AUTO0.02NOEllis Fischel Cancer Center Immature granulocytes/100 WBC (Bld)0.3 %0.0 - 0.5 %NOMS HealthcareInterpretation and review of laboratory resultsAbnormalNOEllis Fischel Cancer CenterLYMPHOCYTES ABSOLUTE AUTO2.9NOMS HealthcareLymphocytes/100 WBC (Bld)37.9 %20.5 - 60.0 %[facility] Charles HospitalMCH (RBC) [Entitic mass]30.9 pg26.7 - 34.0 pgCarondelet HealthHC (RBC) [Mass/Vol]33.2 g/dL29.9 - 35.2 g/dLCarondelet HealthV (RBC) [Entitic vol]93.2 fL 81.0 - 99.0 fLMCKAY-DEE HOSPITAL CENTER HealthcareMONOCYTES ABSOLUTE AUTO0.4N[facility]S [facility] Monocytes/100 WBC (Bld)5.4 %1.7 - 12.0 %NOM HealthcareNEUTROPHILS ABSOLUTE AUTO 4.1NOMS HealthcareNeutrophils/100 WBC (Bld)53.3 %43.0 - 75.0 %[facility] Platelet mean volume (Bld) [Entitic vol]9.1 fLLow9.5 - 13.5 fLNOEllis Fischel Cancer CenterTBH EO #0.2NOMS HealthcareTB [id number] St[address] Charles HospitalTB RBC4.14LowNOEllis Fischel Cancer CenterTB WBC7.6NOSD HealthcareCLINISYNCNOMS HealthcareUS RIGHT UPPER QUADRANTon 41-05-9056Lic[place] [address] Ultrasound Report Signed Patient: RADHA HINES MR#: [id number] : 1990 Acct:[id number] Age/Sex: 33 / F ADM Date: 05/01/24 Loc: US Attending Dr: Shaikh Jeramy Cash Ordering Physician: Shaikh Shreya Deshpande Date of Service: 05/01/24 Procedure(s): US right upper quadrant Accession Number(s): [id number] cc: Shaikh Shreya Deshpande [place] [id number] Patient Name: RADHA HINES MRN: TBH:[id number] date: 1990 Sex: F Assigned Patient Location: US Current Patient Location: Accession/Order Number: [id number] Exam Date: 05/01/2024 10:15 Report Date: 05/03/2024 [...] amount of free fluid. Electronically authenticated by: KYLE BENAVIDES Date: 05/03/2024 08:34 Dictated By: Kyle Benavides M.D. Signed By: 05/03/24 0837 DD/ 0834 TD/TT: Financial Assistance Specialist:TBHRadiology, Radiologist, MD - 05/03/2024 [place] [address] Ultrasound Report Signed Patient: RADHA HINES MR#: [id number] : 1990 Acct:[id number] Age/Sex: 33 / F ADM Date: 05/01/24 Loc: US Attending Dr: Shaikh Jeramy Cash Ordering Physician: Shaikh Shreya Deshpande Date of Service: 05/01/24 Procedure(s): US right upper quadrant Accession Number(s): [id number] cc: Shaikh Shreya Deshpande The [address] [address] Patient Name: RADHA HINES MRN: [id number] date: 1990 Sex: F Assigned Patient Location: US Current Patient Location: Accession/Order Number: [id number] Exam Date: 05/01/2024 10:15 Report Date: 05/03/2024 [...] amount of free fluid. Electronically authenticated by: KYLE BENAVIDES Date: 05/03/2024 08:34 Dictated By: Kyle Benavides M.D. Signed By: 05/03/2437 DD/ 3 TD/TT: Financial Assistance Specialist: SALLIE HealthcareRadiology Study observation (narrative)NOMS HealthcareUS RIGHT UPPER QUADRANTOrdered By: Radiologist Radiology on 12-43-1228TR[facility] Work Phone: no Panel InformationOrdered By: Ann Perera on 72-71-9628Fbstm Strep (POC)[facility] Tripoint Medical CenterUS RIGHT UPPER QUADRANTon 11-30-5264XlgWarba, [place] [address] Ultrasound Report Signed Patient: RADHA HINES MR#: [id number] : 1990 Acct:[id number] Age/Sex: 33 / F ADM Date: 01/03/24 Loc: US Attending Dr: Non-Staff Physician aCsh Ordering Physician: Armando Foster M.D. Date of Service: 01/03/24 Procedure(s): US right upper quadrant Accession Number(s): [id number] cc: Shaikh Shreya Deshpande; Physician,NonBaltaStaff Shreya The [place] [id number] Patient Name: RADHA HINES MRN: [facility]:[id number] date: 1990 Sex: F Assigned Patient Location: US Current Patient Location: US Accession/Order Number: [id number] Exam Date: 01/03/2024 08:15 Report Date: 01/03/2024 [...] 2. No free fluid. Electronically authenticated by: KYLE BENAVIDES Date: 01/03/2024 09:20 Dictated By: Kyle Benavides M.D. Signed By: 01/03/24921 DD/ 9 TD/TT: Financial Assistance Specialist:ARACELISadiology, Radiologist, - 01/03/2024 [place] [address] Ultrasound Report Signed Patient: RADHA HINES MR#: [id number] : 1990 Acct:[id number] Age/Sex: 33 / F ADM Date: 01/03/24 Loc: US Attending Dr: Armando Foster M.D. Ordering Physician: Armando Foster M.D. Date of Service: 01/03/24 Procedure(s): US right upper quadrant Accession Number(s): [id number] cc: Shaikh Shreya Deshpande; Armando Foster M.D. [place] [id number] Patient Name: RADHA HINES MRN: [facility]:[id number] date: 1990 Sex: F Assigned Patient Location: US Current Patient Location: US Accession/Order Number: [id number] Exam Date: 01/03/2024 08:15 Report Date: 01/03/2024 09:20 At the request of: NONBaltaSTAFF PHYSICIAN Procedure: US right upper quadrant EXAMINATION: [...] 2. No free fluid. Electronically authenticated by: KYLE BENAVIDES Date: 01/03/2024 09:20 Dictated By: Kyle Benavides M.D. Signed By: 01/03/24921 DD/ 9 TD/TT: Financial Assistance Specialist: NOMS HealthcareRadiology Study observation (narrative)NOMS HealthcareUS RIGHT UPPER QUADRANTOrdered By: Radiologist Radiology on 52-57-2537[facility] Work Phone: hcg ( test) IA.rapid Ql (U)Ordered By: Vicky Gates on 70-22-6828OAR ( test) Ql (U)NegativeLakehealth Tripoint Medical CenterXR foot RT min 3V*on 16-05-8473FJ foot RT min 3V*[facility] [employer] Other XR foot RT min 3V*[facility] [employer] Other XR foot RT min 3V*[address] [place] [address] [employer] Other XR foot RT min 3V*[place] [address]dtDe[facility] [employer] Other XR foot RT min 3V*[facility] [employer] Other XR foot RT min 3V*[facility] [employer] Other XR foot RT min 3V*Patient: Radha Hines MR#: [id number] [place] [employer] Other XR foot RT min 3V*[address] [place] [address] [employer] Other XR foot RT min 3V*: 1990 Acct:[id number] [place] [employer] Other XR foot RT min 3V*Age/Sex: 32 / F ADM Date: 06/16/23 [facility] [employer] Other XR foot RT min 3V*Loc: XDUCLY Room: Type: [facility] [employer] Other XR foot RT min 3V*Attending Dr: Ann Perera [facility] [employer] Other XR foot RT min 3V*Copies to: Ann Perera [facility] [employer] Other XR foot RT min 3V*Ordering Provider: JOSEPH NoriegaDannemora State Hospital for the [facility]inally [facility] [employer] Other XR foot RT min 3V*Date of Service: 06/16/23[place] [employer] Other XR foot RT min 3V* XR/XR foot RT min 3V*: Right foot painLinville [employer] Other XR foot RT min 3V*XR foot RT min 3V* 06/16/2023 5:22 PM [place] [employer] Other XR foot RT min 3V*SIGNS AND SYMPTOMS: Pain in lateral aspect of the right foot/fifth metatarsalLinville [employer] Other XR foot RT min 3V*PROTOCOL: Frontal, lateral, and oblique radiographs of the right footLinville [employer] Other XR foot RT min 3V*COMPARISON: 05/04/2021[place] [employer] Other XR foot RT min 3V*FINDINGS:[employer] Other XR foot RT min 3V*The bones are in anatomic alignment. There is no evidence of fracture or dislocation. [facility] [employer] Other XR foot RT min 3V*spaces are preserved. No significant soft tissue swelling. There is an os perineum along the [facility] [employer] Other XR foot RT min 3V*aspect of the midfoot. There is minimal plantar surface calcaneal spurring.[employer] Other XR foot RT min 3V* XR/XR foot RT min 3V*[employer] Other XR foot RT min 3V*IMPRESSION:[employer] Other XR foot RT min 3V*No acute bony injury.[employer] Other XR foot RT min 3V*Impression dictated by: Ishmael Nelson M.D.06/16/2023 5:39 PMNDannemora State Hospital for the Criminally Insane [employer] Other XR foot RT min 3V*Dictation Location: [id number] [place] [employer] Other XR foot RT min 3V*Transcribed By: [facility] 06/16/[address] [place] [address] [employer] Other XR foot RT min 3V*Dictated By: Ishmael Nelson II, MD 06/16/[address] [place] [address] [employer] Other XR foot RT min 3V*Signed By:[employer] Other XR foot RT min 3V*06/16/[address] [place] [address] [employer] Other cbc AUTO DIFFon 14-85-1711IZXI #0.1 103/ulNormal 0.0-0.1Pro[facility]ant Deaconess HospitalComment on above:Performed By: #### CBC #### [facility] [address] [place] [address] [address] Belkis RayBasophils/100 WBC (Bld)0.9 %Normal0.2-2.0[facility] Comment on above:Performed By: #### CBC #### [facility] [address] [place] [address] [address] Belkis Rand #0.2 103/ulNormal0.0-0.7The [facility] Medical CenterComment on above: Performed By: #### CBC #### [facility] [address] [place] [address] [address] Belkis Hydeosinophils/100 WBC (Bld)2.8 %Normal0.9-7.0The [facility] Comment on above:Performed By: #### CBC #### [facility] [address] [place] [address] [address] Belkis Hyderythrocyte distribution width (RBC) [Ratio]12.6 %Aeefam93.0-15.0 The [facility] Medical CenterComment on above:Performed By: #### CBC #### [facility] [address] [place] [address] Dr. Belkis Ramseyatocrit (Bld) [Volume fraction]37.6 %Crdepn78.0-48.0The [facility] Medical CenterComment on above:Performed By: #### CBC #### [facility] [address] [place] [address] Dr. Belkis RayHemoglobin (Bld) [Mass/Vol]12.7 g/fUFaljiy90.0-16.0The [facility] CenterComment on above:Performed By: #### CBC #### [facility] [address] [place] [address] Dr. Belkis Maloney #0.02 10e3/ulNormal0.00-0.03The [facility] CenterComment on above:Performed By: #### CBC #### [facility] [address] [place] [address] Dr. Belkis Maloney %0.3 %Normal0.0-0.5The [facility] CenterComment on above: Performed By: #### CBC #### [facility] [address] [place] [address] Dr. Belkis Elmore #2.7 103/ulNormal1.2-3.8The [facility] CenterComchildren's hospital of [facility] on above:Performed By: #### CBC #### [facility] [address] [place] [address] Dr. Belkis Watthocytes/100 WBC (Bld)42.7 %Bwrasc20.5-60.0The [facility] CenterComment on above:Performed By: #### CBC #### [facility] [address] [place] [address] Dr. Belkis StallworthUAL DIFF REQNONormalThe [facility] CenterComment on above: Performed By: #### CBC #### [facility] [address] [place] [address] Dr. Belkis Castle (RBC) [Entitic mass]31.6 pyVksjrh45.7-34.0The [facility] CenterComment on above:Performed By: #### CBC #### [facility] [address] [place] [address] Dr. Belkis Garcia (RBC) [Mass/Vol]33.8 g/cEFwcuqo89.9-35.2The [facility] CenterComment on above:Performed By: #### CBC #### [facility] [address] [place] [address] Dr. Belkis Garcia (RBC) [Entitic vol]93.5 wJXwtzmb10.0-99.0The [facility] CenterComment on above:Performed By: #### CBC #### [facility] [address] [place] [address] Dr. Belkis Whitley #0.4 103/ulNormal0.3-0.8The [facility] CenterComment on above:Performed By: #### CBC #### [facility] [address] [place] [address] Dr. Belkis Khanocytes/100 WBC (Bld)7.0 %Normal1.7-12.0The [facility] Comment on above:Performed By: #### CBC #### [facility] [address] [place] [address] Dr. Belkis Torres #2.9 103/ulNormal1.4-6.5The [facility] CenterComment on above:Performed By: #### CBC #### [facility] [address] [place] [address] Dr. Belkis Dorseyophils/100 WBC (Bld)46.3 %Cilzbb56.0-75.0The [facility] CenterComment on above:Performed By: #### CBC #### [facility] [address] [place] [address] Dr. Belkis Izaguirre mean volume (Bld) [Entitic vol]9.4 fLCritically low 9.5-13.5The [facility] CenterComment on above:Performed By: #### CBC #### [facility] [address] [place] [address] Dr. Belkis Anthony49 103/ulCritically hql600-423Ver [facility] CenterComment on above:Performed By: #### CBC #### [facility] [address] [place] [address] Dr. Belkis RayRBC4.02 106/ulCritically low4.20-5.40The [facility] on above:Performed By: #### CBC #### [facility] [address] [place] [address] Dr. Belkis RayWBC6.3 103/ulNormal4.0-11.0The [facility] CenterComment on above: Performed By: #### CBC #### [facility] [address] [place] [address] Dr. Belkis Meng PROFILEon 23-28-9840Kuhmoof [Mass/Vol]3.6 g/dLNormal3.4-5.0 The [facility] on above:Performed By: #### TSH, PREGQNT #### [facility] [address] [place] [address] Dr. Belkis RayAlbumin/Globulin [Mass ratio]1.0 {ratio}NormalThe [facility] on above:Performed By: #### TSH, PREGQNT #### [facility] [address] [place] [address] Dr. Belkis Abebe [Catalytic activity/Vol]61 U/NOekdsh11-125Acy [facility] on above:Performed By: #### TSH, PREGQNT #### [facility] [address] [place] [address] Dr. Belkis Marroquin [Catalytic activity/Vol]35 U/GKkeycm62-38Dku [facility] on above:Performed By: #### TSH, PREGQNT #### [facility] [address] [place] [address] Dr. Belkis Krishnan [Catalytic activity/Vol]27 U/CWcolex02-07Edn [facility] on above:Performed By: #### TSH, PREGQNT #### [facility] [address] [place] [address] Dr. Belkis LizamaI, CONJUGATED0.2 mg/dLNormal0.0-0.2The [facility] Comment on above:Performed By: #### TSH, PREGQNT #### [facility] [address] [place] [address] Dr. Belkis RayBilirubin [Mass/Vol]0.4 mg/dLNormal0.2-1.0The [facility] Comment on above:Performed By: #### TSH, PREGQNT #### [facility] [address] [address] [address] Belkis RayGlobulin (S) [Mass/Vol]3.6 g/dLNormalThe [facility] CenterComment on above:Performed By: #### TSH, PREGQNT #### [facility] [address] [place] [place] [address] Dr. Belkis RayProtein [Mass/Vol]7.2 g/dLNormal6.4-8.2The [facility] Comment on above:Performed By: #### TSH, PREGQNT #### [facility] [address] [place] [address] Dr. Belkis RayPROF CHEM 8 (BAS METB)on 20-66-1773Bysbw gap [Moles/Vol]12.3 mmol/LNormalProtestant Deaconess HospitalComment on above:Performed By: #### TSH, PREGQNT #### [facility] [address] [address] [address] Belkis RayCalcium [Mass/Vol]8.9 mg/dLNormal8.5-10.1The [facility] Comment on above:Performed By: #### TSH, PREGQNT #### [facility] [address] [address] [address] Belkis RayChloride [Moles/Vol]105 mmol/AEgdvde14-342Vpo [facility] Comment on above:Performed By: #### TSH, PREGQNT #### [facility] [address] [place] [address] Dr. Belkis RayCO2 [Moles/Vol]27.6 mmol/YAzabub72.0-32.0[facility] Comment on above:Performed By: #### TSH, PREGQNT #### [facility] [address] [place] [address] Dr. Belkis RayCreatinine [Mass/Vol]0.57 mg/dLNormal0.55-1.02[facility]acon[facility] HospitalComment on above:Performed By: #### TSH, PREGQNT #### [facility] [address] [place] [address] Dr. Belkis HydeGFR-AF SWEDISH>60Normal>=60The [facility] CenterComment on above:Performed By: #### TSH, PREGQNT #### [facility] [address] [place] [address] Dr. Belkis HydeGFR-NON AF SWEDISH>60Normal>=60The [facility] CenterComment on above:Performed By: #### TSH, PREGQNT #### [facility] [address] [place] [address] Dr. Belkis RayGlucose [Mass/Vol]89 mg/qBSrocnx40-264FdnProtestant Deaconess Hospital Comment on above:Performed By: #### TSH, PREGQNT #### [facility] [address] [place] [address] Dr. Belkis RayPotassium [Moles/Vol]3.9 mmol/LNormal3.5-5.1[facility] Comment on above:Performed By: #### TSH, PREGQNT #### [facility] [address] [place] [address] Dr. Belkis Pyledium [Moles/Vol]141 mmol/JFruaas690-632ErnProtestant Deaconess Hospital Comment on above:Performed By: #### TSH, PREGQNT #### [facility] [address] [place] [address] Dr. Belkis RayUrea nitrogen [Mass/Vol]12.0 mg/dLNormal7.0-18.0The [facility] CenterComment on above:Performed By: #### TSH, PREGQNT #### [facility] [address] [place] [address] Dr. Belkis RayUrea nitrogen/Creatinine [Mass ratio]21.1 mg/mgNoOhioHealth Grady Memorial HospitalComment on above:Performed By: #### TSH, PREGQNT #### [facility] [address] [place] [address] Dr. Belkis RayPROTIMEon 39-13-1213VCT Coag (PPP) [Relative time]1.09 {INR} NormalProtestant Deaconess HospitalComment on above:Performed By: #### TSH, PREGQNT #### [facility] [address] [place] [address] Dr. Belkis WhitakerR GUIDELINESSEE BELOWWilson HealthComment on above:Result Comment: DESIRED INR: 2.0 - 3.0 CONDITIONS NOT LISTED BELOW 2.5 - 3.5 FOR PROSTHETIC HEART VALVE REPLACEMENT 2.5 - 3.5 RECURRENT THROMBOSIS Performed By: #### TSH, PREGQNT #### [facility] [address] [place] [address] Dr. Belkis RayPT Coag (PPP) [Time]11.5 sNormal9.0-11.6The [facility] Comment on above:Performed By: #### TSH, PREGQNT #### [facility] [address] [place] [address] Dr. Belkis RayNM HEPATOBILIARY SCAN W EFon 70-66-5538GL HEPATOBILIARY SCAN W EF EXAMINATION: NM HEPATOBILIARY [...] Electronically authenticated by: RODNEY JOHN Date: 2023-02-14 15:07Wilson HealthCOVID + FLU Quick Testingon 37-52-0115VHAS-CoV-2 (COVID-19) RNA HOLDEN+probe Ql (Unsp spec)NegativeDeaconess Incarnate Word Health SystemGraffiti Other COVID + FLU Quick TestingNegativeDeaconess Incarnate Word Health SystemGraffiti Other Quick Strepon 01-18-2023S. pyogenes Org specific cx Ql (Throat)NegativeDeaconess Incarnate Word Health SystemGraffiti Other Quxzo StrepACACIA [employer] Other US PELVIS AND TRANSVAGon [id number] PELVIS AND TRANSVAGEXAM: Pelvic ultrasound HISTORY: . Cyst of left [...] Electronically authenticated by: RODNEY MEJIA Date: 2023-01-07 08:12Wilson HealthANTI-MULLERIAN HORMONEon [id number]-Mullerian Hormone (AMH) 4.29 ng/mLNormalThe [facility] CenterComment on above:Result Comment: For assays employing antibodies, the possibility exists for interference by heterophile antibodies in the samples.1 1.Lucho Tejada Interferences in Immunoassays - still a threat. Clin. Chem. 2000; 46: 2378-6153. This test was developed and its performance characteristics determined by [facility]. It has not been cleared or approved by the Food and Drug Administration. Reference Range: Females 31 - 35y: 0.66 - 8.75 Median 3.00 AMH concentrations of >= 1.06 ng/mL is correlated with a better response to ovarian stimulation, produced more retrievable oocytes and higher odds of live according to Anabell et al. Fertility and Sterility. 2010: 94:8550-1266. The current AMH test method correlates with [...] to diagnose or exclude an AMH-secreting ovarian tumor.Performed By: #### DARREL #### [facility] [address] [place] [address] Dr. Belkis RayUS PELVIS AND TRANSVAGon [id number] PELVIS AND TRANSVAG EXAMINATION: US PELVIS AND [...] Electronically authenticated by: KYLE BENAVIDES Date: 2022-11-26 08:06[facility] AUTO DIFFon [id number] #0.0 103/ulNormal0.0-0.1[facility] Deaconess HospitalComment on above:Performed By: #### CBC #### [facility] [address] [address] [address] Belkis RayBasophils/100 WBC (Bld)0.4 %Normal0.2-2.0[facility] Comment on above:Performed By: #### CBC #### [facility] [address] [address] [address] Belkis Rand #0.2 103/ulNormal0.0-0.7ThHolzer HospitalComment on above: Performed By: #### CBC #### [facility] [address] [address] [address] Belkis Hydeosinophils/100 WBC (Bld)2.3 %Normal0.9-7.0[facility] Comment on above:Performed By: #### CBC #### [facility] [address] [address] [address] Belkis Hyderythrocyte distribution width (RBC) [Ratio]13.0 %Zeikiz45.0-15.0 [facility]aconess HospitalComment on above:Performed By: #### CBC #### [facility] [address] [address] [address] Belkis RayHematocrit (Bld) [Volume fraction]35.8 %Critically low36.0-48.0 The [facility] CenterComment on above:Performed By: #### CBC #### [facility] [address] [place] [address] Dr. Belkis RayHemoglobin (Bld) [Mass/Vol]12.7 g/tJFxyuzu68.0-16.0The [facility] CenterComment on above:Performed By: #### CBC #### [facility] [address] [place] [address] Dr. Belkis Maloney #0.02 10e3/ulNormal0.00-0.03The [facility] CenterComment on above:Performed By: #### CBC #### [facility] [address] [place] [address] Dr. Belkis Maloney %0.2 %Normal0.0-0.5The [facility] CenterComment on above: Performed By: #### CBC #### [facility] [address] [place] [address] Dr. Belkis Elmore #2.5 103/ulNormal1.2-3.8The [facility] CenterComment on above:Performed By: #### CBC #### [facility] [address] [place] [address] Dr. Belkis Watthocytes/100 WBC (Bld)26.4 %Vwvhys34.5-60.0The [facility] CenterComment on above:Performed By: #### CBC #### [facility] [address] [place] [address] Dr. Belkis StallworthUAL DIFF REQNONormalThe [facility] CenterComment on above: Performed By: #### CBC #### [facility] [address] [place] [address] Dr. Belkis Garcia (RBC) [Entitic mass]31.8 gcWdnxhw56.7-34.0The [facility] CenterComment on above:Performed By: #### CBC #### [facility] [address] [place] [address] Dr. Belkis Garcia (RBC) [Mass/Vol]35.5 g/dLCritically high29.9-35.2The [facility] CenterComment on above:Performed By: #### CBC #### [facility] [address] [place] [address] Dr. Belkis Brown (RBC) [Entitic vol]89.5 aWZzxfrq92.0-99.0The [facility] CenterComment on above:Performed By: #### CBC #### [facility] [address] [place] [address] Dr. Belkis Whitley #0.6 103/ulNormal0.3-0.8The [facility] CenterComment on above:Performed By: #### CBC #### [facility] [address] [place] [address] Dr. Belkis Khanocytes/100 WBC (Bld)6.3 %Normal1.7-12.0The [facility] Comment on above:Performed By: #### CBC #### [facility] [address] [place] [address] Dr. Belkis Torres #6.0 103/ulNormal1.4-6.5The [facility] CenterComment on above:Performed By: #### CBC #### [facility] [address] [place] [address] Dr. Belkis Spauldingutrophils/100 WBC (Bld)64.4 %Xhezzs34.0-75.0The [facility] CenterComment on above:Performed By: #### CBC #### [facility] [address] [place] [address] Dr. Belkis Izaguirre mean volume (Bld) [Entitic vol]9.0 fLCritically low 9.5-13.5The [facility] CenterComment on above:Performed By: #### CBC #### [facility] [address] [place] [address] Dr. Belkis RayPLT173 103/ieQiaggo848-097Ixh [facility] CenterComment on above: Performed By: #### CBC #### [facility] [address] [place] [address] Dr. Yilan ChangRBC4.00 106/ulCritically low4.20-5.40The [facility] CenterComchildren[facility] [place] on above:Performed By: #### CBC #### [facility] [address] [place] [address] Dr. Belkis RayWBC9.3 103/ulNormal4.0-11.0The [facility] CenterComchildren's hospital of [place] on above: Performed By: #### CBC #### [facility] [address] [place] [address] Dr. Belkis RayFREE T4on [id number] T4 [Mass/Vol]0.80 ng/dLNormal0.76-1.46 The [facility] CenterComchildren's hospital of [place] on above:Performed By: #### FT4 #### [facility] [address] [place] [address] Dr. Belkis RayGLYCOHEMOGLOBIN A1Con [id number] RECOMMENDATIONSEE BELOWNormal The [facility] CenterComchildren's hospital [facility] [place] on above:Result Comment: ADA RECOMMENDED LIMIT 4.0 - 6.0 ADA THERAPEUTIC TARGET < 7.0 ACTION SUGGESTED > 7.0Performed By: #### TSH, PREGQNT #### [facility] [address] [place] [address] Dr. Belkis RayGlucose [Mass/Vol]103 mg/dLNoPaulding County Hospital on above:Performed By: #### TSH, PREGQNT #### [facility] [address] [place] [address] Dr. Belkis RayHbA1c (Bld) [Mass fraction]5.2 %Normal4.5-6.2The [facility] on above:Performed By: #### TSH, PREGQNT #### [facility] [address] [place] [address] Dr. Belkis Gamboa ACOG PANEL 2: 30 to 65on 11-25-2022..NormalThe [facility] on above:Result Comment: Performed at: WBPerformed By: #### [id number] #### [facility] [address] [place] [address] Dr. Belkis Nguyen Gdln ACOG Uoanfdb64-19KkjuizWwnOhioHealth Grady Memorial HospitalComment on above:Performed By: #### [id number] #### [facility] [address] [place] [address] Dr. Belkis RayDIAGNOSIS:CommentFayette County Memorial Hospital on above: Result Comment: NEGATIVE FOR INTRAEPITHELIAL LESION OR MALIGNANCY. Performed at: WBPerformed By: #### [id number] #### [facility] [address] [place] [address] Dr. Belksi RayHPHemal AptimaNegativeNormalNegativeThe [facility] on above:Result Comment: This nucleic acid amplification test detects fourteen high-risk HPV types (16,18,31,33,35,39,45,51,52,56,58,59,66,68) without differentiation. Performed at: =GPerformed By: #### [id number] #### [facility] [address] [place] [address] Dr. Belkis RayHPHemal Genotype ReflexCommentFayette County Memorial Hospital on above:Result Comment: Criteria not met, HPV Genotype not performed. Performed at: WBPerformed By: #### [id number] #### [facility] [address] [place] [address] Dr. Belkis RayMethodology:CommentFayette County Memorial Hospital on above: Result Comment: This liquid based ThinPrep(R) pap test was screened with the use of an image guided system. Performed at: WBPerformed By: #### [id number] #### [facility] [address] [place] [address] Dr. Belkis RayNote:CommentFayette County Memorial Hospital on above:Result Comment: The Pap smear is a screening test designed to aid in the detection of premalignant and malignant conditions of the uterine cervix. It is not a diagnostic procedure and should not be used as the sole means of detecting cervical cancer. Both false-positive and false-negative reports do occur. . Performed at: WBPerformed By: #### [id number] #### [facility] [address] [place] [address] Dr. Belkis RayPerformed by:CommentFayette County Memorial Hospital on above: Result Comment: Kaur Frazier, Backend Java Developer (ASCP) Performed at: WBPerformed By: #### [id number] #### [facility] [address] [place] [address] Dr. Belkis Simon adequacy:CommentFayette County Memorial Hospital on above:Result Comment: Satisfactory for evaluation. Endocervical and/or squamous metaplastic cells (endocervical component) are present. Performed at: WBPerformed By: #### [id number] #### [facility] [address] [place] [address] Dr. Belkis RayPREMonster QUANT HCGon [id number] QUANT<1NormalProtestant Deaconess Hospital Comment on above:Performed By: #### TSH, PREGQNT #### [facility] [address] [place] [address] Dr. Belkis Truong RANGESEE [facility] HospitalComchildren[facility] [place] on above: Result Comment: 5-50 0.2-1 WEEK 50-500 1-2 WEEKS 100-5,000 2-3 WEEKS 500-10,000 3-4 WEEKS 1,000-50,000 4-5 WEEKS 10,000-100,000 5-6 WEEKS 15,000-200,000 6-8 WEEKS 10,000-100,000 2-3 MONTHSPerformed By: #### TSH, PREGQNT #### [facility] [address] [place] [address] Dr. Belkis RayPROTIMEon 40-60-7950UGI Coag (PPP) [Relative time]1.11 {INR} NormalSouthwest General Health Center on above:Performed By: #### TSH, PREGQNT #### [facility] [address] [place] [address] Dr. Belkis Avina [facility] HospitalComchildren[facility] [place] on above:Result Comment: DESIRED INR: 2.0 - 3.0 CONDITIONS NOT LISTED BELOW 2.5 - 3.5 FOR PROSTHETIC HEART VALVE REPLACEMENT 2.5 - 3.5 RECURRENT THROMBOSIS Performed By: #### TSH, PREGQNT #### [facility] [address] [place] [address] Dr. Belkis Brennan Coag (PPP) [Time]11.9 sCritically high9.0-11.6The [facility] CenterComment on above:Performed By: #### TSH, PREGQNT #### [facility] [address] [place] [address] Dr. Belkis Greenfield 20-14-5936aOVV Coag (Bld) [Time]30.3 hQrgvez75.3-36.2The [facility] CenterComment on above:Performed By: #### TSH, PREGQNT #### [facility] [address] [place] [address] Dr. Belkis Díaz 76-39-0196ZTI4.129 uIU/mLNormal0.358-3.740The [facility] CenterComment on above:Performed By: #### FRANKIE PREGQNT #### [facility] [address] [place] [address] Dr. Belkis Johnson Strepon 10-24-2022. pyogenes Org specific cx Ql (Throat) NegativePearls of Wisdom [employer] Other [employer] Other cbc AUTO DIFFon [id number] #0.1 103/ulNormal 0.0-0.1The [facility] CenterComment on above:Performed By: #### CBC #### [facility] [address] [place] [address] Dr. Belkis Ramirezphils/100 WBC (Bld)0.7 %Normal0.2-2.0The [facility] Comment on above:Performed By: #### CBC #### [facility] [address] [place] [address] Dr. Belkis Rand #0.3 103/ulNormal0.0-0.7The [facility] CenterComment on above: Performed By: #### CBC #### [facility] [address] [place] [address] Dr. Yilan ChangEosinophils/100 WBC (Bld)3.5 %Normal0.9-7.0The [facility] Comment on above:Performed By: #### CBC #### [facility] [address] [place] [address] Dr. Belkis Hyderythrocyte distribution width (RBC) [Ratio]13.2 %Yzaiot51.0-15.0 The [facility] CenterComment on above:Performed By: #### CBC #### [facility] [address] [place] [address] Dr. Belkis RayHematocrit (Bld) [Volume fraction]37.3 %Xpenef38.0-48.0The [facility] CenterComment on above:Performed By: #### CBC #### [facility] [address] [place] [address] Dr. Belkis RayHemoglobin (Bld) [Mass/Vol]12.6 g/nSKyfzbh12.0-16.0The [facility] CenterComment on above:Performed By: #### CBC #### [facility] [address] [place] [address] Dr. Belkis Maloney #0.02 10e3/ulNormal0.00-0.03The [facility] CenterComment on above:Performed By: #### CBC #### [facility] [address] [place] [address] Dr. Belkis RayIG %0.3 %Normal0.0-0.5The [facility] CenterComment on above: Performed By: #### CBC #### [facility] [address] [place] [address] Dr. Belkis RodriguezMPH #3.0 103/ulNormal1.2-3.8The [facility] CenterComment on above:Performed By: #### CBC #### [facility] [address] [place] [address] Dr. Belkis Rodriguezmphocytes/100 WBC (Bld)41.4 %Gzxugr02.5-60.0The [facility] CenterComment on above:Performed By: #### CBC #### [facility] [address] [place] [address] Dr. Belkis Queen DIFF REQNONormalThe [facility] CenterComment on above: Performed By: #### CBC #### [facility] [address] [place] [address] Dr. Belkis Garcia (RBC) [Entitic mass]31.3 rpXpirzw22.7-34.0The [facility] CenterComment on above:Performed By: #### CBC #### [facility] [address] [place] [address] Dr. Belkis Garcia (RBC) [Mass/Vol]33.8 g/nTJyelro80.9-35.2The [facility] CenterComment on above:Performed By: #### CBC #### [facility] [address] [place] [address] Dr. Belkis Garcia (RBC) [Entitic vol]92.8 aHFmwrsj66.0-99.0The [facility] CenterComment on above:Performed By: #### CBC #### [facility] [address] [place] [address] Dr. Belkis Whitley #0.5 103/ulNormal0.3-0.8The [facility] CenterComment on above:Performed By: #### CBC #### [facility] [address] [place] [address] Dr. Belkis Khanocytes/100 WBC (Bld)6.3 %Normal1.7-12.0The [facility] Comment on above:Performed By: #### CBC #### [facility] [address] [place] [address] Dr. Belkis Torres #3.5 103/ulNormal1.4-6.5The [facility] CenterComment on above:Performed By: #### CBC #### [facility] [address] [place] [address] Dr. Belkis Spauldingutrophils/100 WBC (Bld)47.8 %Wbbnly04.0-75.0The [facility] CenterComment on above:Performed By: #### CBC #### [facility] [address] [address] [address] Belkis RayPlatelet mean volume (Bld) [Entitic vol]9.4 fLCritically low 9.5-13.5The [facility] CenterComment on above:Performed By: #### CBC #### [facility] [address] [address] [address] Belkis RayPLT169 103/qpMxkxaj190-833Kcc [facility] CenterComment on above: Performed By: #### CBC #### [facility] [address] [address] [address] Belkis RayRBC4.02 106/ulCritically low4.20-5.40The [facility] CenterComment on above:Performed By: #### CBC #### [facility] [address] [place] [address] Dr. Belkis RayWBC7.4 103/ulNormal4.0-11.0The [facility] CenterComment on above: Performed By: #### CBC #### [facility] [address] [place] [address] Dr. Belkis RayPROF CHEM 8 (BAS METB)on 09-71-9294Mbqvj gap [Moles/Vol]11.5 mmol/LNormalThe [facility] CenterComment on above:Performed By: #### TSH, PREGQNT #### [facility] [address] [place] [place] [address] Dr. Belkis RayCalcium [Mass/Vol]9.1 mg/dLNormal8.5-10.1The [facility] Comment on above:Performed By: #### TSH, PREGQNT #### [facility] [address] [place] [place] [address] Dr. Belkis RayChloride [Moles/Vol]103 mmol/JKkozec34-500Qxr [facility] Comment on above:Performed By: #### TSH, PREGQNT #### [facility] [address] [place] [place] [address] Dr. Belkis RayCO2 [Moles/Vol]26.4 mmol/VWnnnrt26.0-32.0[facility] Comment on above:Performed By: #### TSH, PREGQNT #### [facility] [address] [address] [address] Belkis RayCreatinine [Mass/Vol]0.58 mg/dLNormal0.55-1.02[facility] HospitalComment on above:Performed By: #### TSH, PREGQNT #### [facility] [address] [place] [place] [address] Dr. Belkis HydeGFR-AF SWEDISH>60Normal>=60The [facility] CenterComment on above:Performed By: #### TSH, PREGQNT #### [facility] [address] [place] [place] [address] Dr. Belkis HydeGFR-NON AF SWEDISH>60Normal>=60The [facility] CenterComment on above:Performed By: #### TSH, PREGQNT #### [facility] [address] [place] [address] Dr. Belkis RayGlucose [Mass/Vol]85 mg/tNZogxks26-024TjiProtestant Deaconess Hospital Comment on above:Performed By: #### TSH, PREGQNT #### [facility] [address] [place] [place] [address] Dr. Belkis RayPotassium [Moles/Vol]3.9 mmol/LNormal3.5-5.1[facility] Comment on above:Performed By: #### TSH, PREGQNT #### [facility] [address] [place] [address] Dr. Belkis RaySodium [Moles/Vol]137 mmol/UMhhbep363-258NjnProtestant Deaconess Hospital Comment on above:Performed By: #### TSH, PREGQNT #### [facility] [address] [place] [place] [address] Dr. Belkis RayUrea nitrogen [Mass/Vol]11.0 mg/dLNormal7.0-18.0The [facility] CenterComment on above:Performed By: #### TSH, PREGQNT #### [facility] [address] [place] [place] [address] Dr. Yilan ChangUrea nitrogen/Creatinine [Mass ratio]19.0 mg/mgNormalThe [facility] CenterComment on above:Performed By: #### TSH, PREGQNT #### [facility] [address] [place] [address] Dr. Belkis íDaz 21-72-7216MKW3.286 uIU/mLNormal0.358-3.740The [facility] CenterComment on above:Performed By: #### TSH, PREGQNT #### [facility] [address] [place] [address] Dr. Belkis Vivas AUTO DIFFon 47-25-6721FPMD #0.0 103/ulNormal0.0-0.1The [facility] CenterComment on above:Performed By: #### CBC #### [facility] [address] [place] [address] Dr. Belkis RayBasophils/100 WBC (Bld)0.5 %Normal0.2-2.0[facility] Comment on above:Performed By: #### CBC #### [facility] [address] [place] [address] Dr. Belkis Rand #0.2 103/ulNormal0.0-0.7The [facility] CenterComment on above: Performed By: #### CBC #### [facility] [address] [place] [address] Dr. Belkis Hydeosinophils/100 WBC (Bld)2.2 %Normal0.9-7.0The [facility] Comment on above:Performed By: #### CBC #### [facility] [address] [place] [address] Dr. Belkis Hyderythrocyte distribution width (RBC) [Ratio]13.7 %Xvdxua58.0-15.0 The [facility] CenterComment on above:Performed By: #### CBC #### [facility] [address] [place] [address] Dr. Belkis RayHematocrit (Bld) [Volume fraction]41.1 %Mnhgrb62.0-48.0The Guy HospitalComment on above:Performed By: #### CBC #### [facility] [address] [address] [address] Belkis RayHemoglobin (Bld) [Mass/Vol]13.3 g/kLRbyvid96.0-16.0The [facility] CenterComment on above:Performed By: #### CBC #### [facility] [address] [place] [address] Dr. Belkis Maloney #0.01 10e3/ulNormal0.00-0.03The [facility] CenterComment on above:Performed By: #### CBC #### [facility] [address] [place] [address] Dr. Belkis Maloney %0.1 %Normal0.0-0.5The [facility] CenterComment on above: Performed By: #### CBC #### [facility] [address] [place] [address] Dr. Belkis Elmore #2.5 103/ulNormal1.2-3.8The [facility] CenterComment on above:Performed By: #### CBC #### [facility] [address] [place] [address] Dr. Belkis Watthocytes/100 WBC (Bld)33.0 %Dfgfch84.5-60.0The [facility] CenterComment on above:Performed By: #### CBC #### [facility] [address] [place] [address] Dr. Belkis StallworthUAL DIFF REQNONormalThe [facility] CenterComment on above: Performed By: #### CBC #### [facility] [address] [place] [address] Dr. Belkis Garcia (RBC) [Entitic mass]30.5 roKvwwys20.7-34.0The [facility] CenterComment on above:Performed By: #### CBC #### [facility] [address] [place] [address] Dr. Belkis Garcia (RBC) [Mass/Vol]32.4 g/kBDumuug91.9-35.2The [facility] CenterComment on above:Performed By: #### CBC #### [facility] [address] [address] [address] Belkis GarciaV (RBC) [Entitic vol]94.3 vELlkfun71.0-99.0The [facility] CenterComment on above:Performed By: #### CBC #### [facility] [address] [address] [address] Belkis Whitley #0.3 103/ulNormal0.3-0.8The [facility] CenterComment on above:Performed By: #### CBC #### [facility] [address] [place] [address] Dr. Belkis Khanocytes/100 WBC (Bld)4.2 %Normal1.7-12.0The [facility] on above:Performed By: #### CBC #### [facility] [address] [place] [address] Dr. Belkis Torres #4.6 103/ulNormal1.4-6.5The [facility] Centerment on above:Performed By: #### CBC #### [facility] [address] [place] [address] Dr. Belkis Spauldingutrophils/100 WBC (Bld)60.0 %Hdwyco78.0-75.0The [facility] on above:Performed By: #### CBC #### [facility] [address] [place] [address] Dr. Belkis Jacksonlet mean volume (Bld) [Entitic vol]9.3 fLCritically low 9.5-13.5The [facility] Centerment on above:Performed By: #### CBC #### [facility] [address] [place] [address] Dr. Belkis RayPLT182 103/mjOygvly237-888Lxq [facility] Centerment on above: Performed By: #### CBC #### [facility] [address] [place] [address] Dr. Belkis RayRBC4.36 106/ulNormal4.20-5.40The [facility]inicius HospitalComment on above:Performed By: #### CBC #### [facility] [address] [place] [address] Dr. Belkis RayWBC7.6 103/ulNormal4.0-11.0The [facility] CenterComment on above: Performed By: #### CBC #### [facility] [address] [place] [address] Dr. Belkis ShermanF 14(COMP METB)on 78-16-3134Fcuqfop [Mass/Vol]3.9 g/dLNormal 3.4-5.0The [facility] CenterComment on above:Performed By: #### CMP #### [facility] [address] [place] [address] Dr. Belkis RayAlbumin/Globulin [Mass ratio]1.1 {ratio}NormalThe [facility] CenterComment on above:Performed By: #### CMP #### [facility] [address] [place] [address] Dr. Belkis GillespieP [Catalytic activity/Vol]70 U/KFqpztt57-305Hqm [facility] CenterComment on above:Performed By: #### CMP #### [facility] [address] [place] [address] Dr. Belkis Marroquin [Catalytic activity/Vol]50 U/XWjldej12-78Jxs [facility] CenterComment on above:Performed By: #### CMP #### [facility] [address] [place] [address] Dr. Belkis Foster gap [Moles/Vol]14.1 mmol/LNormalThe [facility] Comment on above:Performed By: #### CMP #### [facility] [address] [place] [address] Dr. Belkis RayAST [Catalytic activity/Vol]30 U/JPvypdg48-39Xlu [facility] CenterComment on above:Performed By: #### CMP #### [facility] [address] [place] [address] Dr. Belkis RayBilirubin [Mass/Vol]0.7 mg/dLNormal0.2-1.0The [facility] Comment on above:Performed By: #### CMP #### [facility] [address] [address] [address] Belkis RayCalcium [Mass/Vol]9.1 mg/dLNormal8.5-10.1The [facility] Comment on above:Performed By: #### CMP #### [facility] [address] [address] [address] Belkis RayChloride [Moles/Vol]105 mmol/VAhjavv52-960Iha [facility] Comment on above:Performed By: #### CMP #### [facility] [address] [address] [address] Belkis RayCO2 [Moles/Vol]24.8 mmol/KMhhrbx98.0-32.0The [facility] Comment on above:Performed By: #### CMP #### [facility] [address] [address] [address] Belkis RayCreatinine [Mass/Vol]0.59 mg/dLNormal0.55-1.02The [facility] CenterComment on above:Performed By: #### CMP #### [facility] [address] [address] [address] Belkis HydeGFR-AF SWEDISH>60Normal>=60The [facility] CenterComment on above:Performed By: #### CMP #### [facility] [address] [address] [address] Belkis HydeGFR-NON AF SWEDISH>60Normal>=60The [facility] CenterComment on above:Performed By: #### CMP #### [facility] [address] [address] [address] Belkis aRyGlobulin (S) [Mass/Vol]3.5 g/dLNormalThe [facility] CenterComment on above:Performed By: #### CMP #### [facility] [address] [address] [address] Belkis RayGlucose [Mass/Vol]147 mg/dLCritically ognu21-720Wbi [facility] CenterComment on above:Performed By: #### CMP #### [facility] [address] [address] [address] Belkis RayPotassium [Moles/Vol]3.9 mmol/LNormal3.5-5.1The [facility] Comment on above:Performed By: #### CMP #### [facility] [address] [address] [address] Belkis RayProtein [Mass/Vol]7.4 g/dLNormal6.4-8.2The [facility] Comment on above:Performed By: #### CMP #### [facility] [address] [address] [address] Belkis Pyledium [Moles/Vol]140 mmol/GOernxw459-289Zdq [facility] Comment on above:Performed By: #### CMP #### [facility] [address] [address] [address] Belkis RayUrea nitrogen [Mass/Vol]9.0 mg/dLNormal7.0-18.0The [facility] CenterComment on above:Performed By: #### CMP #### [facility] [address] [address] [address] Belkis Benson nitrogen/Creatinine [Mass ratio]15.3 mg/mgNormalThe [facility] CenterComment on above:Performed By: #### CMP #### [facility] [address] [address] [address] Belkis Hernandez [id number] (NISHI) RADHA HINES ([id number]) 1990 F Date Time Provider Department 12/24/21 VICKY GATES During your visit today, we recorded the following information about you: Jamila Lockhart 12/24/2021 1:47 PM Signed Patient calling Asking when she needs to have labs drawn again? And if we can fax the orders to [facility]? FAX [phone] Erica Solis RN 12/24/2021 2:25 PM Signed Attempted to call pt, no answer. Left detailed voice msg that labs were ordered 11/26/2021 and I faxed reqs to number below.. Instructed to call back with any questions. Erica Solis RN Allergies As of Date: 12/24/2021 Noted [...] Date: 12/24/2021 (None) Encounter Status:Closed by ERICA SOLIS RN on 12/24/21NoAdena Fayette Medical CenterTORY PHYSICALon [id number] PHYSICALHNO ID: [id number] Author: Erica Solis RN Service: ? Author Type: ? Type: [...] - 45 mg/dL 20 AFP <11.0 ng/mL 6.0NormalCUpper Valley Medical Center 38-32-0458DGW0.0 ng/mL Normal<11.0[facility] on above:Result Comment: AFP levels <11 ng/ml can be found in a variety of conditions, Hepatocellular Carcinoma and Non-seminomatous testicular cancer among others. Correlation with clinical picture and other test results including histopathology and radiology, where applicable, is recommended.Performed By: #### HFP, BMP, HBSAG, PT, CBC, FERR ####[address] [phone]#### AHBCOT, SMTHS, CERULO, AHAVG, AHBSQ, AHCV1B, ANAS, MITOS, AFP, IGG ####[address] [phone]#### LKM ####[address] [phone] 50-46-4038TGE by EIA0.7 OD RatioNormalAvita Health System Ontario Hospital on above:Result Comment: OD Ratio is interpreted as follows: Negative <1.0 Positive >=1.0Performed By: #### HFP, BMP, HBSAG, PT, CBC, FERR ####[address] [place] [phone]#### AHBCOT, SMTHS, CERULO, AHAVG, AHBSQ, AHCV1B, ANAS, MITOS, AFP, IGG ####[phone]#### LKM ####[facility] [address] [place], [place] [phone] by EIA, Qual NegativeNormalNegativeAvita Health System Ontario Hospital on above:Performed By: #### HFP, BMP, HBSAG, PT, CBC, FERR ####[facility] [place], [place] [phone]#### AHBCOT, SMTHS, CERULO, AHAVG, AHBSQ, AHCV1B, ANAS, MITOS, AFP, IGG ####[facility] [place], [place] [phone]#### LKM ####[facility] [address] [place], [place] [phone]-1 Antitryp Genon 30-52-4038Zlljj-1 Antitryp IntSee BelowNormalCSelect Medical [facility] on above:Result Comment: (NOTE) Alpha-1 Antitrypsin Genotyping Laboratory Accession Number: [id number] Result: No Variant Detected in SERPINA1 (PI*MM) [...] two most common pathogenic variants: S (c.863A>T, p.Cvn878Lpk, g.95731987), Z (c.1096G>A, p.Dsp375Qwc, g.54699026), and the rarer variants: F (c.739C>T, p.Gtv670Gbe, g.47628083), I (c.187C>T, p.Brv47Tbr, g.36263394). Limitations: This Laboratory Developed Test (LDT) is [...] developed and its performance characteristics determined by [facility]'s [facility] Pathology and Laboratory Medicine [place] ([facility]). It has not been cleared or approved by the FDA. [facility] is regulated under CLIA as certified to perform high- complexity testing. This test is used for clinical purposes. It should not be regarded as investigational or for research. References: 1) Cleopatra RA, Anyi G, Krystina ML, Ralph M, Charbel CE, K, Mery DK, Oanh SL, Ar JM, Jono MarmolejoK, Olivia C, Anirudh J. The Diagnosis and Management of Alpha-1 Antritrypsin Deficiency in the Adult. Chronic Obstr Pulm Dis. 2016 Apr 22;3:668-682. 2) lElen JA, Jenifer ON, Araceli ER, Mariela LESTER. a1-Antitrypsin phenotypes and associated serum protein concentrations in a large clinical population. Chest.2013 Feb;143(4):1000-8. 3) Vito A, Senthil NA, Don CR, Katie FJ, Haresh SJ, Annabelle AF. Molecular characterisation of three rkjqt-6-pjwifggoqkg deficiency variants: proteinase inhibitor (Pi) nullcardiff (Lpa650----Hlz); PiMmalton (Gyv57----obdmqzme) and PiI (Utr15----Che). Hum [place]. 1988;84(1):55-8. 4) Con EK and Cleopatra LUTZ. Clinical practice. Alpha1-antitrypsin deficiency. N Engl J Med. 2008May 11;360(52)7307-20. 5) Christopher NJ, Bora F, Tova LUTZ. The significance of the F variant of bcsvh-5-orfujmwxahv and unique case report of a PiFF homozygote. BMC Pulm Med. 2013Jun 23;14:132. 6) Jono MarmolejoK, Babita FL, and Yusuf Schwartz. Alpha-1 Antitrypsin Deficiency. 2005Sep 12 [Updated 2017 December 05]. In: Jairo RA, Brayden MP, Rudy TO, et al., editors. JournallyMe [Internet]. [place] ([place]): [facility], [place]; 7563-3445. Available from: http://www.ncbi.nlm.nih.gov/books/OGB8402/ As reviewed by Jacek Lomeli, PhD, [facility] HILLCREST HOSPITALDPerformed By: #### HA1AT #### [place] [phone] Metabolic Panlon 14-34-7672Hjxcc gap [Moles/Vol]9 mmol/LNormal 18[facility] CampusComment on above:Performed By: #### HFP, BMP, HBSAG, PT, CBC, FERR #### [place] [phone] #### AHBCOT, SMTHS, CERULO, AHAVG, AHBSQ, AHCV1B, ANAS, MITOS, AFP, IGG #### [place] [phone] #### LKM #### [place] [address] Hljeozi [Mass/Vol]9.4 mg/dLNormal8.5-10.5CRiverview Health Institute Comment on above:Performed By: #### HFP, BMP, HBSAG, PT, CBC, FERR #### [place] [phone] #### AHBCOT, SMTHS, CERULO, AHAVG, AHBSQ, AHCV1B, ANAS, MITOS, AFP, IGG #### [place] [phone] #### LKM #### [place] [phone] [Moles/Vol]102 mmol/VNamleu69-396OkbahgbtgSumma Health [facility]ron Campus Comment on above:Performed By: #### HFP, BMP, HBSAG, PT, CBC, FERR #### [place] [phone] #### AHBCOT, SMTHS, CERULO, AHAVG, AHBSQ, AHCV1B, ANAS, MITOS, AFP, IGG #### [place] [phone] #### LKM #### [place] [phone] [Moles/Vol]25 mmol/PGpgxsk57-04LiytnizxrSumma Health Akron CampusComment on above:Performed By: #### HFP, BMP, HBSAG, PT, CBC, FERR #### [place] [phone] #### AHBCOT, SMTHS, CERULO, AHAVG, AHBSQ, AHCV1B, ANAS, MITOS, AFP, IGG #### [place] [phone] #### LKM #### [facility] [address] [place] [address] Xghtifiwlx [Mass/Vol]0.52 mg/dLLow0.70-1.40[facility] CampusComment on above:Performed By: #### HFP, BMP, HBSAG, PT, CBC, FERR #### [place] [phone] #### AHBCOT, SMTHS, CERULO, AHAVG, AHBSQ, AHCV1B, ANAS, MITOS, AFP, IGG #### [place] [phone] #### LKM #### [place] [address] wPPN- Amer.>60Normal>60J.W. Ruby Memorial HospitalvelandComment on above:Performed By: #### HFP, BMP, HBSAG, PT, CBC, FERR #### [place] [phone] #### AHBCOT, SMTHS, CERULO, AHAVG, AHBSQ, AHCV1B, ANAS, MITOS, AFP, IGG #### [place] [phone] #### LKM #### [facility] [address] [place] [address] kXWU-All Other Races>60Normal>60[facility] Akron CampusComment on above:Result Comment: eGFR (Estimated GFR) Units of measure: [...] the eGFR may not accurately reflect actual GFR.Performed By: #### HFP, BMP, HBSAG, PT, CBC, FERR #### [place] [phone] #### AHBCOT, SMTHS, CERULO, AHAVG, AHBSQ, AHCV1B, ANAS, MITOS, AFP, IGG #### [place] [phone] #### LKM #### [facility] [address] [place] [address] Tevfrbx [Mass/Vol]111 mg/vQIytr44-505XbuhggzliSumma Health Akron Campus Comment on above:Performed By: #### HFP, BMP, HBSAG, PT, CBC, FERR #### [place] [phone] #### AHBCOT, SMTHS, CERULO, AHAVG, AHBSQ, AHCV1B, ANAS, MITOS, AFP, IGG #### [place] [phone] #### LKM #### [facility] [address] [place] [address] Jypnmndhd [Moles/Vol]3.9 mmol/LNormal3.5-5.0[facility] CampusComment on above:Performed By: #### HFP, BMP, HBSAG, PT, CBC, FERR #### [place] [phone] #### AHBCOT, SMTHS, CERULO, AHAVG, AHBSQ, AHCV1B, ANAS, MITOS, AFP, IGG #### [place] [phone] #### LKM #### [facility] [address] [place] [address] Qlmhiu [Moles/Vol]136 mmol/DNyzqor722-197NrxcwlligSumma Health [facility] Campus Comment on above:Performed By: #### HFP, BMP, HBSAG, PT, CBC, FERR #### [place] [phone] #### AHBCOT, SMTHS, CERULO, AHAVG, AHBSQ, AHCV1B, ANAS, MITOS, AFP, IGG #### [place] [phone] #### LKM #### [facility] [address] [place] [address] Eeck nitrogen [Mass/Vol]8 mg/dLNormal8-25[facility] Comment on above:Performed By: #### HFP, BMP, HBSAG, PT, CBC, FERR #### [place] [phone] #### AHBCOT, SMTHS, CERULO, AHAVG, AHBSQ, AHCV1B, ANAS, MITOS, AFP, IGG #### [place] [phone] #### LKM #### [facility] [address] [place], [place] [id number] [phone] 10-24-7590Iblknrzb nRBC<0.01Normal<0.01[facility] CampusComment on above:Performed By: #### HFP, BMP, HBSAG, PT, CBC, FERR #### [place] [phone] #### AHBCOT, SMTHS, CERULO, AHAVG, AHBSQ, AHCV1B, ANAS, MITOS, AFP, IGG #### [place] [address] #### LKM #### [facility] [address] [place] [address] Moxzsqhobyl distribution width (RBC) [Ratio]13.0 %Eqwulk59.5-15.0 [facility] Hospitalment on above:Performed By: #### HFP, BMP, HBSAG, PT, CBC, FERR #### [place] [phone] #### AHBCOT, SMTHS, CERULO, AHAVG, AHBSQ, AHCV1B, ANAS, MITOS, AFP, IGG #### [place] [phone] #### LKM #### [facility] [address] [place] [address] Adhtdmudqr (Bld) [Volume fraction]35.7 %Low36.0-46.0Ohio[facility] Mans[facility] Hospitalment on above:Performed By: #### HFP, BMP, HBSAG, PT, CBC, FERR #### [place] [phone] #### AHBCOT, SMTHS, CERULO, AHAVG, AHBSQ, AHCV1B, ANAS, MITOS, AFP, IGG #### [place] [phone] #### LKM #### [facility] [address] [place] [address] Iwmxlrwqbi (Bld) [Mass/Vol]11.7 g/lHViqykh48.5-15.5CSelect [facility] on above:Performed By: #### HFP, BMP, HBSAG, PT, CBC, FERR #### [place] [phone] #### AHBCOT, SMTHS, CERULO, AHAVG, AHBSQ, AHCV1B, ANAS, MITOS, AFP, IGG #### [place] [phone] #### LKM #### [facility] [address] [place], [place] [phone] rEWpnovj38.0-34.0Sum[facility] Health Akron CampusComment on above: Performed By: #### HFP, BMP, HBSAG, PT, CBC, FERR #### [place] [phone] #### AHBCOT, SMTHS, CERULO, AHAVG, AHBSQ, AHCV1B, ANAS, MITOS, AFP, IGG #### [place] [phone] #### LKM #### [facility] [address] [place] [phone] (RBC) [Mass/Vol]32.8 g/aFWzsbcb86.5-36.0[facility] Akron CampusComment on above:Performed By: #### HFP, BMP, HBSAG, PT, CBC, FERR #### [place] [phone] #### AHBCOT, SMTHS, CERULO, AHAVG, AHBSQ, AHCV1B, ANAS, MITOS, AFP, IGG #### [place] [phone] #### LKM #### [facility] [address] [place] [phone] (RBC) [Entitic vol]101.4 dEXfyw37.0-100.0[facility] CampusComment on above:Performed By: #### HFP, BMP, HBSAG, PT, CBC, FERR #### [place] [phone] #### AHBCOT, SMTHS, CERULO, AHAVG, AHBSQ, AHCV1B, ANAS, MITOS, AFP, IGG #### [place] [phone] #### LKM #### [facility] [address] [place] [address] Ghcvictj mean volume (Bld) [Entitic vol]10.1 fLNormal9.0-12.7 [facility] CampusComment on above:Performed By: #### HFP, BMP, HBSAG, PT, CBC, FERR #### [place] [phone] #### AHBCOT, SMTHS, CERULO, AHAVG, AHBSQ, AHCV1B, ANAS, MITOS, AFP, IGG #### [place] [phone] #### LKM #### [facility] [address] [place] [address] Agiucghcf (Bld) [#/Vol]116 10*3/nQOwc659-095JcxionhjdSumma Health Akron CampusComment on above:Performed By: #### HFP, BMP, HBSAG, PT, CBC, FERR #### [place] [phone] #### AHBCOT, SMTHS, CERULO, AHAVG, AHBSQ, AHCV1B, ANAS, MITOS, AFP, IGG #### [place] [phone] #### LKM #### [facility] [address] [place] [phone] (Bld) [#/Vol]3.52 10*6/uLLow3.90-5.20[facility] Comment on above:Performed By: #### HFP, BMP, HBSAG, PT, CBC, FERR #### [place] [phone] #### AHBCOT, SMTHS, CERULO, AHAVG, AHBSQ, AHCV1B, ANAS, MITOS, AFP, IGG #### [place] [address]25[address] [place] [phone] #### LKM #### [facility] [address] [place] [address] DYX (Bld) [#/Vol]6.28 10*3/uLNormal3.70-11.00[facility] Akron CampusComment on above:Performed By: #### HFP, BMP, HBSAG, PT, CBC, FERR #### [facility] [address] [place] [address] #### AHBCOT, SMTHS, CERULO, AHAVG, AHBSQ, AHCV1B, ANAS, MITOS, AFP, IGG #### [facility] [address] [place] [phone] #### LKM #### [facility] [address] [place] [address] HXMLva 41-91-9263XZYSJqhpxo Visit ([id number]) RADHA HINES ([id number]) 1990 F Date Time Provider Department 08/27/21 4:00 PM VICKY GATES [id number] During your visit today, we recorded the [...] regular Wound: Temperature: No Drains: No Vicky Gates MD 08/27/2021 2:51 PM Signed Hepatology Clinic Consult patient Consultation requested by Dr. Ulices Clemons for an opinion regarding liver cirrhosis. My [...] ulcerations Neurologic No Asteri (more content not included)...NormalSumma Health Akron Campus Ceruloplasminon 27-70-3534Ivsbguymbnwui21 mg/cFRogwui03-59Gvnbzbeae Clinic ClevelandComment on above:Performed By: #### HFP, BMP, HBSAG, PT, CBC, FERR #### [place] [phone] #### AHBCOT, SMTHS, CERULO, AHAVG, AHBSQ, AHCV1B, ANAS, MITOS, AFP, IGG #### [place] 982570 [place] [phone] #### LKM #### [address] [address] Wvsbstktvk 65-50-0875Vwpyeaqq [Mass/Vol]53.9 ng/uRQphvvq82.7-205.1 [facility] CampusComchildren's hospital of michigan on above:Performed By: #### HFP, BMP, HBSAG, PT, CBC, FERR #### [place] [phone] #### AHBCOT, SMTHS, CERULO, AHAVG, AHBSQ, AHCV1B, ANAS, MITOS, AFP, IGG #### [place] [address] #### LKM #### [address] [address] ZQWOGWD PHYSICALon [id number] PHYSICALHNO ID: [id number] Author: Vicky Gates MD Service: ? Author Type: Physician Type: HANDP Filed: 08/27/2021 2:51 PM Note Text: Hepatology Clinic Consult patient Consultation requested by Dr. Ulices Clemons for an opinion regarding liver cirrhosis. My [...] in the right upper (more content not included)...NormalCity [facility] B Core Ab,Totalon 02-84-9179Oau B Core Ab,TotalNegativeNormalNegativeOhioHealth Mansfield Hospitalment on above: Performed By: #### HFP, BMP, HBSAG, PT, CBC, FERR ####[place] [phone]#### AHBCOT, SMTHS, CERULO, AHAVG, AHBSQ, AHCV1B, ANAS, MITOS, AFP, IGG ####[place] [address] [address] AveCCharl[place], [place] [phone]#### LKM ####[address] [phone] C Ab IA w/Confon 08-27-2021 Hepatitis C Ab IANegativeNormalNegativeAvita Health System [facility] Hospital on above:Performed By: #### HFP, BMP, HBSAG, PT, CBC, FERR ####[place] [phone]#### AHBCOT, SMTHS, CERULO, AHAVG, AHBSQ, AHCV1B, ANAS, MITOS, AFP, IGG ####[place] [address] [address] [place] [phone]#### LKM ####[address] [phone] SurfaceAb,Quanton 33-53-3388JfdC SurfaceAb,Quant<8.00Normal<8.00OhioHealth Mansfield Hospitalment on above:Result Comment: NEGATIVEPerformed By: #### HFP, BMP, HBSAG, PT, CBC, FERR ####[place] [phone]#### AHBCOT, SMTHS, CERULO, AHAVG, AHBSQ, AHCV1B, ANAS, MITOS, AFP, IGG ####[place] [address] [address]Clevel[phone]#### LKM ####[facility] [address] [place] [address] [phone] Functn Panelon 29-49-0280Fmjhqxu [Mass/Vol]4.1 g/dL Normal3.5-5.0Sum[facility] Health Akron CampusComment on above:Performed By: #### HFP, BMP, HBSAG, PT, CBC, FERR #### [place] [phone] #### AHBCOT, SMTHS, CERULO, AHAVG, AHBSQ, AHCV1B, ANAS, MITOS, AFP, IGG #### [place] [phone] #### LKM #### [address] [phone] ALP [Catalytic activity/Vol]60 U/HReifxc74-877XlgewnrntSumma Health Akron CampusComment on above:Performed By: #### HFP, BMP, HBSAG, PT, CBC, FERR #### [place] [phone] #### AHBCOT, SMTHS, CERULO, AHAVG, AHBSQ, AHCV1B, ANAS, MITOS, AFP, IGG #### [place] [phone] #### LKM #### [address] [address] CMI [Catalytic activity/Vol]28 U/LNormal0-45Sum[facility] Health Akron CampusComment on above:Performed By: #### HFP, BMP, HBSAG, PT, CBC, FERR #### [place] [phone] #### AHBCOT, SMTHS, CERULO, AHAVG, AHBSQ, AHCV1B, ANAS, MITOS, AFP, IGG #### [place] [phone] #### LKM #### [facility] [address] [place] [address] ZRK [Catalytic activity/Vol]38 U/LNormal7-40Sum[facility] Health Akron CampusComment on above:Performed By: #### HFP, BMP, HBSAG, PT, CBC, FERR #### [place] [phone] #### AHBCOT, SMTHS, CERULO, AHAVG, AHBSQ, AHCV1B, ANAS, MITOS, AFP, IGG #### [place] [phone] #### LKM #### [facility] [address] [place] [id number] [phone] [Mass/Vol]1.1 mg/dLNormal0.2-1.3CRiverview Health Institute Comment on above:Performed By: #### HFP, BMP, HBSAG, PT, CBC, FERR #### [place] [phone] #### AHBCOT, SMTHS, CERULO, AHAVG, AHBSQ, AHCV1B, ANAS, MITOS, AFP, IGG #### [place] [phone] #### LKM #### [facility] [address] [place] [address] Chspampqs,Conjugated0.3 mg/dLHigh<0.2CRiverview Health Institute Comment on above:Performed By: #### HFP, BMP, HBSAG, PT, CBC, FERR #### [place] [phone] #### AHBCOT, SMTHS, CERULO, AHAVG, AHBSQ, AHCV1B, ANAS, MITOS, AFP, IGG #### [place] [phone] #### LKM #### [facility] [address] [place] [id number] [phone] [Mass/Vol]7.1 g/dLNormal6.0-8.4CRiverview Health Institute Comment on above:Performed By: #### HFP, BMP, HBSAG, PT, CBC, FERR #### [place] [phone] #### AHBCOT, SMTHS, CERULO, AHAVG, AHBSQ, AHCV1B, ANAS, MITOS, AFP, IGG #### [facility] [address] [place] [phone] #### LKM #### [facility] [address] [place] [id number] [phone] A Ab IgGon 27-16-2609Dphyfgqby A Ab IgGNegativeNormal NegativeSumma Health Akron CampusComment on above:Result Comment: No serological evidence of past exposure to Hepatitis A virus or hepatitis A vaccination. Should recent infection be suspected, repeat testing is suggested 3-4 weeks after this draw.Performed By: #### HFP, BMP, HBSAG, PT, CBC, FERR ####[place] [phone]#### AHBCOT, SMTHS, CERULO, AHAVG, AHBSQ, AHCV1B, ANAS, MITOS, AFP, IGG ####[facility] [place], [place] [phone]#### LKM ####[facility] [address] [place], [place] [phone] Hepatitis B Surf. Agon 88-16-3473Bttijdazt B Surf. AgNegativeNormalNegative [facility]ron CampusComment on above:Performed By: #### HFP, BMP, HBSAG, PT, CBC, FERR #### [place] [phone] #### AHBCOT, SMTHS, CERULO, AHAVG, AHBSQ, AHCV1B, ANAS, MITOS, AFP, IGG #### [facility] [address] [place], [place] [address] #### LKM #### [facility] [address] [place] [address] AzDpi 85-06-3797NwT [Mass/Vol]996 mg/pJFhhhxz627-2215BabphjitaAvita Health System Ontario Hospital on above:Performed By: #### HFP, BMP, HBSAG, PT, CBC, FERR ####[facility] [place] [phone]#### AHBCOT, SMTHS, CERULO, AHAVG, AHBSQ, AHCV1B, ANAS, MITOS, AFP, IGG ####[facility] [place], [place] [phone]#### LKM ####[facility] [address] [place], [place] [phone] Liver-Kid Micro Abson 69-20-9547Lglml-Kid Micro Abs<1:20Normal<1:20[facility] on above:Result Comment: (NOTE) INTERPRETIVE INFORMATION: Paxnc-Ztojes-Fyizpxwqu Abs, IgG Liver-Kidney Microsome IgG antibody (anti-LKM), as detected by indirect immunofluorescent antibody (IFA) techniques, may be observed in patients with autoimmune hepatitis type 2 (AIH-2), AIH-2 associated with autoimmune tcxvwrolgmxwzaodav-xjclzwbcula-nzpxpuorhu dystrophy (APECED), viral hepatitis C or D, and some forms of drug-induced hepatitis. This IFA does not differentiate among the four types of LKM antibodies (LKM-1, LKM-2, LKM-3, and a fourth type that recognizes CY and CY antigens). Of these, anti-LKM-1 (cytochrome Y764DTX8) IgG antibodies are considered specific for AIH-2. This test was developed and its performance characteristics determined by [employer]. It has not been cleared or approved by the [place] Food and Drug Administration. This test was performed in a CLIA certified laboratory and is intended for clinical purposes. Performed By: [facility] [employer] [address] [place] [address] Deputy Chief Magistrate: Aleida Green MDPerformed By: #### HFP, BMP, HBSAG, PT, CBC, FERR ####[address] [phone]#### AHBCOT, SMTHS, CERULO, AHAVG, AHBSQ, AHCV1B, ANAS, MITOS, AFP, IGG ####[place] [address] [address] Av[place], [place] [phone]#### LKM ####[address] [phone] Ab Scron 52-36-6670Hogsdynwdsixv Ab ScrNegative NormalNegativeAvita Health System Ontario Hospital on above:Result Comment: Normal range : negative at a 1:20 serum dilution.Performed By: #### HFP, BMP, HBSAG, PT, CBC, FERR ####[address] [phone]#### AHBCOT, SMTHS, CERULO, AHAVG, AHBSQ, AHCV1B, ANAS, MITOS, AFP, IGG ####[place] [address] [address] [place], [place] [phone]#### LKM ####[address] [phone] 21-29-9244QV INR1.8Whptmi4.9-1.3CSelect Medical Specialty Hospital [facility] on above:Result Comment: Vitamin K Antagonist (VKA) Therapeutic Range: INR 2 to 3 (Target INR of 2.5) Note: For patients treated with VKA drugs, such as warfarin, the [place] [employer] 2012 Guideline recommends [...] Chest 2012, 141:7S-47S Juan RA, et al. [facility] 2017, 70: 252-289Performed By: #### HFP, BMP, HBSAG, PT, CBC, FERR #### [place] [phone] #### AHBCOT, SMTHS, CERULO, AHAVG, AHBSQ, AHCV1B, ANAS, MITOS, AFP, IGG #### [place] [phone] #### LKM #### [facility] [address] [place] [address] [place] Sec13.7 secHigh9.7-13.0Sum[facility] Health Akron CampusComment on above:Performed By: #### HFP, BMP, HBSAG, PT, CBC, FERR #### [place] [phone] #### AHBCOT, SMTHS, CERULO, AHAVG, AHBSQ, AHCV1B, ANAS, MITOS, AFP, IGG #### [place] [phone] #### LKM #### [facility] [address] [place] [address] Rjktdl Muscle Ab Scron 53-76-3902Wqndyn Muscle Ab ScrNegativeNormal NegativeSumma Health Akron CampusComment on above:Result Comment: Normal range : negative at a 1:20 serum dilution.Performed By: #### HFP, BMP, HBSAG, PT, CBC, FERR ####[place] [address] [place], [place] [phone]#### AHBCOT, SMTHS, CERULO, AHAVG, AHBSQ, AHCV1B, ANAS, MITOS, AFP, IGG ####[facility] [address] [place], [place] [phone]#### LKM ####[facility] [address] [place], [place] [phone] Quick Testingon 59-48-9291ZxsfilPvveyponMtnui [employer] Other CNOVon 18-80-5968NVGASzkpsn Visit (GENLEMUEL) RADHA HINES ([id number]) 1990 F Date Time Provider Department 08/10/21 10:40 AM ULICES CLEMONS During your visit today, we recorded the following information about you: Temperature Pulse Respiration Blood pressure 97.3 degrees 99/minute 16/minute 119/64 Weight Height 64.8 kg 1.575 m Ulices Clemons MD 08/10/2021 5:00 PM Signed Assessment NEW [...] hypertension. 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 Patient presented to [facility] at beginning of May for RUE ecchymosis. She was noted to have elevated LFTs and advised to stop drinking alcohol. She established care with PCP Elen Deshpande MD who instructed her to go to [facility] ER for jaundice and RUQ pain. Upon admit to [facility] on 06/08/2021, labs revealed a significant elevation [...] Neuro: Gait normal. Sensation grossly intact. IMAGING: [facility]) 06/08/2021 CT A/P (Images Uploaded/Report Scanned) 06/11/2021 MRIAbdomen (Images Uploaded/Report Scanned) 06/08/2021 US RUQ- cirrhotic liver, ascites, and gallbladder wall thickening; no 07/06/2021 HIDA- normal LABS (more content not included)...NormalSouthern [place] Medical Center 30-05-0815NDMFLnaiylfzg ([facility]) KAJALRADHA ([id number]) 1990 F Date Time Provider Department 07/24/21 ULICES CLEMONS [facility] During your visit today, we recorded the following information about you: Susan Latif RN 2021 3:07 PM Signed Call to patient to evaluate reason for consult with Dr. Clemons and request records for review. Received VM. Left detailed message. Call to Dr. Rodney Castañeda (referrig physician) for records. Received VM. Left detailed message. Fax request for records sent, as well to [phone] Susan Latif RN 2021 4:07 PM Signed Received return call from patient. Referral from Dr. Rodney Castañeda for transplant?? Faxed request for records and imaging reports to Dr. Castañeda to verify reason for consult. PCP: Shaikh Jeramy MD [place] [address] [address] [facility] [phone] Freida Deluca Pss 07/25/2021 10:[address] Jeramy Zhao's nurse, called regarding records. Stated records were sent last week-our office did not receive. Confirmed fax number and she will send them over today. Freida Deluca [facility] Susan Latif RN 07/26/2021 9:07 AM Signed Follow up call to patient. Cancelled her consult today, as our office has not received OSH records. Will call patient to reschedule once records are received and reviewed. Felecia Pelletier 07/27/2021 9:11 AM Signed Received reports from [facility]. CT Abdomen/Pelvis 06/08/2021 US Abdomen 06/08/2021 MRI Abdomen 06/10/2021 NM Hepatobilliary scan 07/06/2021 Reports scanned and imaging downloaded. Please review. Susan Latif RN 07/30/2021 2:32 PM Signed Hepatobiliary Surgery Consult OSH records received: 30 yr old female who presented to [facility] at beginning of May for RUE ecchymosis. She was noted to have elevated LFTs and advised to stop drinking alcohol. She established care with PCP Elen Deshpande MD who instructed her to go to [facility] ER for jaundice and RUQ pain. Upon admit to [facility] on 06/08/2021, labs revealed a significant elevation [...] 11 Received Records From: 06/08/2021 Hospitalist HANDP ([facility]) 06/09/2021 GI Consult Note (Dr. Castañeda) 06/11/2021 Discharge Summary ([facility]) Imaging:[facility]) 06/08/2021 CT A/P (Images Uploaded/Report Scanned) 06/11/2021 MRIAbdomen (Images Uploaded/Report Scanned) 06/08/2021 US RUQ- cirrhotic liver, ascites, and gallbladder wall thickening; no 07/06/2021 HIDA- normal Labs: See scanned lab reports Felecia Pelletier 07/31/2021 8:52 AM Signed First available with permission from Dr. Gates would be 08/27/2021 then he is out for 2 weeks starting the 10 of September. Felecia Pelletier 07/31/2021 3:42 PM Signed Patient is scheduled on 08/10/2021 in [place] to see Dr. Clemons. On 08/27/2021 she is scheduled to see Dr. Gates at [facility]. She is aware of both appointments. 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 [3602] Consult [173] Problem List As Of Date: 2021 (None) Encounter Status:Closed by SUSAN LATIF RN [facility] Vital Signs Date TimeVital SignValuePerforming RejnehrkgHtqryics85-90-8851 10:33-0500Body anqiwa228.48 cmVicky Gates MD Work Phone: [facility]11-05-2025 10:33-0500 Body mass index (BMI) [Ratio]24.9 kg/m2Vicky Gates MD Work Phone: [facility]11-05-2025 10:33-0500 Body fvdznvlpagg55.9 [degF]Vicky Gates MD Work Phone: 1(222)[address] [place], [place] 1291711-05-2025 10:33-0500 Body .74 kgVicky Gates MD Work Phone: 1(824)[address] [place], [place] 1291711-05-2025 10:33-0500 Diastolic blood wofbyngs00 mm[Hg]Vicky Gates MD Work Phone: 1(619)[address] [place], [place] 1291711-05-2025 10:33-0500 Heart rate74 /Chemo Gates MD Work Phone: 1(546)[address] [place], [place] 1291711-05-2025 10:33-0500 Respiratory rate12 /Chemo Gates MD Work Phone: 1(627)[address] [place], [place] 1291711-05-2025 10:33-0500 SaO2% (BldA) [Mass fraction]99 %Vicky Gates MD Work Phone: 1(945)[address] [place], [place] 1291711-05-2025 10:33-0500 Systolic blood dantonll645 mm[Hg]Vicky Gates MD Work Phone: 1(459)[address] [place], [place] 1291710-21-2025 17:52-0400 Body hroevbdmjdy02.3 [degF]Vicky Gates MD Work Phone: 1(053)[address] [place], [place] 1291710-21-2025 17:52-0400 Diastolic blood omzfxnve87 mm[Hg]Vicky Gates MD Work Phone: 1(422)[address] [place], [place] 1291710-21-2025 17:52-0400 Heart pyfo267 /Chemo Gates MD Work Phone: 1(060)[address] [place], [place] 1291710-21-2025 17:52-0400 Respiratory rate18 /Chemo Gates MD Work Phone: 1(008)[address] [place], [place] 1291710-21-2025 17:52-0400 SaO2% (BldA) [Mass fraction]98 %Vicky Gates MD Work Phone: 1(520)[address] [place], [place] 1291710-21-2025 17:52-0400 Systolic blood mm[Hg]Vicky Gates MD Work Phone: 1(158)[address] [place], [place] 1291709-19-2025 09:21-0400 Diastolic blood plkkhqyi16 mm[Hg]Vicky Gates MD Work Phone: 1(359)[address] [place], [place] 1291709-19-2025 09:21-0400 Heart rate83 /Chemo Gates MD Work Phone: 1(393)[address] [place], [place] 1291709-19-2025 09:21-0400 Respiratory rate18 /Chemo Gates MD Work Phone: 1(331)[address] [place], [place] 1291709-19-2025 09:21-0400 SaO2% (BldA) [Mass fraction]97 %Vicky Gates MD Work Phone: 1(113)[address] [place], [place] 1291709-19-2025 09:21-0400 Systolic blood mm[Hg]Vicky Gates MD Work Phone: 1(961)[address] [place], [place] 1291709-19-2025 07:30-0400 Body zjndoe553.48 cmVicky Gates MD Work Phone: 1(656)[address] [place], [place] 1291709-19-2025 07:30-0400 Body kijava86.23 kgVicky Gates MD Work Phone: 1(229)[address] [place], [place] 1291706-25-2025 16:22-0400 Body mass index (BMI) [Ratio]26.79 kg/b4Paakw Shamika DO Work Phone: [facility] HospitalVrdlpjfyrj38-70-6121 16:22-0400Body .32 kgCorey Shamika DO Work Phone: [facility] HospitalYsxtfeshdx01-55-4268 16:22-0400Diastolic blood uszcavha81 mm[Hg]Chalo Shamika DO Work Phone: [facility] HospitalWdjnzujxvj86-25-4445 16:22-0400Systolic blood fcieumwl682 mm[Hg]Chalo Shamika DO Work Phone: [facility] HospitalQdfiqkoqet90-07-1677 16:01-0400Body qmueyp149.48 cmL[facility]05-28-2025 16:01-0400Body mass index (BMI) [Ratio]25 kg/j8DsirkwfqdLakehealth Tripoint Medical Center05-28-2025 16:01-0400Body kcbbgndubqq94.1 [degF][facility]05-28-2025 16:01-0400Body hqyalt79.14 kgLakehealth Tripoint Medical Center05-28-2025 16:01-0400Diastolic blood ryudbsyt42 mm[Hg][facility]05-28-2025 16:01-0400 Heart mqte243 /[facility]05-28-2025 16:01-0400 Respiratory rate18 /[facility]05-28-2025 16:01-0400 SaO2% (BldA) [Mass fraction]98 %[facility]05-28-2025 16:01-0400Systolic blood mm[Hg][facility] 01-10-2025 15:03-0500Body mass index (BMI) [Ratio]26.07 kg/i6DwfcbnszBobo Trinidad HNP-BC Work Phone: 1(116)759-[facility] HospitalGsnjcuadsn43-32-0275 15:03-0500Body iaccrp83.6 kg Bobo Trinidad PMHNP-BC Work Phone: [phone] [place], [place] [address]Amnzsrjygt32-97-4414 15:03-0500Diastolic blood jukhjula63 mm[Hg]Bobo Trinidad PMHNP-BC Work Phone: 1(003)039-[address] [place], [place] [address]Jathfamjxn92-97-4496 15:03-0500Heart rate94 /min Bobo Trinidad PMHNP-BC Work Phone: 1(155)349-[address] [place], [place] [address]Xvrrtqbyuk86-26-6678 15:03-0500Systolic blood zttfgowb778 mm[Hg]Bobo Trinidad PMHNP-BC Work Phone: 7(310)817-[facility] HospitalSwrnrgshyd12-93-2584 15:26-0500Body nizoch863.48 cmLakehealth Tripoint [facility] Center01-27-2025 15:26-0500Body mass index (BMI) [Ratio]25.6 kg/q2NngxbarxjLakehealth Tripoint Medical Center01-27-2025 15:26-0500Body .5 kgLakehealth Tripoint Medical Center01-22-2025 15:00-0500Body mass index (BMI) [Ratio]26.83 kg/r2MlwcwmocBobo Trinidad PROVISIONING ANALYST Work Phone: [facility] HospitalRufwtqqchf97-47-5477 15:00-0500Body hhtiqv58.41 kgBobo Trinidad PROVISIONING ANALYST Work Phone: [facility] HospitalNaceuyfipi92-24-6493 15:00-0500Diastolic blood bwaweapf07 mm[Hg]Bobo Trinidad PROVISIONING ANALYST Work Phone: [facility] HospitalZjyesnstyp56-60-8281 15:00-0500Heart rate65 /min Bobo Trinidad PROVISIONING ANALYST Work Phone: [facility] HospitalTegusqcaui36-70-7661 15:00-0500Systolic blood isypkwbm719 mm[Hg]Bobo Trinidad PROVISIONING ANALYST Work Phone: [facility] HospitalRwmrvymdbe93-46-2713 14:56-0500Body xbehpt179.9 cmBredvinany Copeland PROVISIONING ANALYST Work Phone: [facility] [phone] 14:56-0500Body mass index (BMI) [Ratio]26.45 kg/m0Srhhianf Copeland PROVISIONING ANALYST Work Phone: [facility] [id number] 14:56-0500Body temperature 97.2 [degF]Ed Copeland PROVISIONING ANALYST Work Phone: [facility] [phone] 14:56-0500Body qzneoj28.5 kg Ed Copeland PROVISIONING ANALYST Work Phone: [facility] [id number] 14:56-0500Diastolic blood pktufwvv39 mm[Hg]Ed Copeland PROVISIONING ANALYST Work Phone: [facility] [id number] 14:56-0500Heart rate69 /min Ed Copeland PROVISIONING ANALYST Work Phone: [facility] [facility] HospitalZhlpatojuh05-40-0674 14:56-0500Respiratory rate16 /minEd Packerk PROVISIONING ANALYST Work Phone: [facility] HospitalNfrrabipne83-68-8644 14:56-8120KjE1% (BldA) [Mass fraction]98 %Ed Packerk PROVISIONING ANALYST Work Phone: [facility] HospitalNjqscsknob90-33-6236 14:56-0500Systolic blood rnjriasi609 mm[Hg]Ed Packerk PROVISIONING ANALYST Work Phone: [facility] HospitalDydbpafqmz29-80-2060 10:01-0500Body mass index (BMI) [Ratio]26.26 kg/r2TicgginwBobo Trinidad PROVISIONING ANALYST Work Phone: [facility] HospitalZzvzdejmoe74-55-1463 10:01-0500Body pxkrsi26.05 kgBobo Trinidad PROVISIONING ANALYST Work Phone: [facility] HospitalCzqolegyyk00-29-1692 10:01-0500Diastolic blood rgusnpfd44 mm[Hg]Bobo Trinidad PROVISIONING ANALYST Work Phone: [facility] HospitalLbmiwmohct49-93-0582 10:01-0500Heart rate74 /min Bobo Trinidad PROVISIONING ANALYST Work Phone: [facility] HospitalQtftszseqy47-46-5566 10:01-0500Systolic blood zxkquptj349 mm[Hg]Bobo Trinidad PROVISIONING ANALYST Work Phone: [facility] HospitalBmwlqrbpvw34-06-0953 09:03-0400Body mass index (BMI) [Ratio]25.47 kg/m8VeesxqwlEd Packerk PROVISIONING ANALYST Work Phone: [facility] HospitalJgedoosglh57-90-3227 09:03-0400Body temperature 97.9 [degF]Ed Packerk PROVISIONING ANALYST Work Phone: [facility] HospitalRgpqviqpgo41-69-2360 09:03-0400Body kyhgmv23.15 kgEd Packerk PROVISIONING ANALYST Work Phone: [facility] HospitalVxdqacykwi52-35-6154 09:03-0400Diastolic blood kzkgamrp27 mm[Hg]Ed Laurentrick PROVISIONING ANALYST Work Phone: [facility] HospitalJuegfomakz79-65-4597 09:03-0400Heart rate68 /min Ed Packerk PROVISIONING ANALYST Work Phone: [facility] HospitalZnkcvikosc73-68-9871 09:03-7642QaG7% (BldA) [Mass fraction]98 %Ed Packerk PROVISIONING ANALYST Work Phone: [facility] HospitalEqymslfzpr08-58-2640 09:03-0400Systolic blood mehdxqal361 mm[Hg]Ed Packerk PROVISIONING ANALYST Work Phone: [facility] HospitalWhjxzadruv77-05-4190 17:35-0400Body itsser119.48 cmL[facility]05[facility]20[facility] 17:35-0400Body mass index (BMI) [Ratio]25.8 kg/i2WrjfblcwcLakehealth [facility] Center05-31-2024 17:35-0400Body uefqjbbnmtk54.7 [degF][facility]05-31-2024 17:35-0400Body cyoemn66.06 kgLake[facility]05-31-2024 17:35-0400Heart rate 88 /[facility]05-31-2024 17:35-0400Respiratory rate16 /[facility]05-31-2024 17:35-8493QpL3% (BldA) [Mass fraction]98 %[facility]09-22-2023 10:33-0400Diastolic blood zglqnraa29 mm[Hg]MD Shaikh Deshpande Work Phone: [facility]09-22-2023 10:33-0400 Heart rate71 /Martine Deshpande Work Phone: [facility]09-22-2023 10:33-0400 Respiratory rate16 /Martine Deshpande Work Phone: [facility]09-22-2023 10:33-0400 SaO2% (BldA) [Mass fraction]100 %MD Shaikh Deshpande Work Phone: [facility]09-22-2023 10:33-0400 Systolic blood jvbefuet93 mm[Hg]MD Shaikh Deshpande Work Phone: [facility]09-22-2023 08:33-0400 Body gvngxu275.48 cmMD Shaikh Jeramy Work Phone: [phone] [place], [place] [address]9-22-2023 08:33-0400 Body nrqmfvykfqt54.9 [degF]MD Shaikh Deshpande Work Phone: [facility]09-22-2023 08:33-0400 Body tohyfd44.42 kgMD Shaikh Jeramy Work Phone: [facility]08-14-2023 15:30-0400 Body gbwxky497.48 cmImad Asaad Other [employer] Other 08-14-2023 15:30-0400Body mass index (BMI) [Ratio] 23.77 kg/m2Imad Asaad Other [employer] Other 08-14-2023 15:30-0400Body mpnhje92.97 kgImad Asaad Other [employer] Other 08-14-2023 15:30-0400Diastolic blood yncjkvjb90 mm[Hg] Imad Asaad Other [employer] Other 08-14-2023 15:30-0400Systolic blood flycaixk584 mm[Hg] Imad Asaad Other [employer] Other 07-31-2023 16:00-0400Body swbila408.48 More Perera Other [employer] Other 07-31-2023 16:00-0400Body mass index (BMI) [Ratio] 23.99 kg/n7RscppkAnn Perera Other [employer] Other 07-31-2023 16:00-0400Body gzjdxitmhwa93.1 [degF]Ann Perera Other [employer] Other 07-31-2023 16:00-0400Body vektga64.51 kgAnn Perera Other [employer] Other 07-31-2023 16:00-0400Diastolic blood qksfusqn50 mm[Hg] Ann Perera Other [employer] Other 07-31-2023 16:00-0400Respiratory rate18 /minAnn Perera Other [employer] Other 07-31-2023 16:00-3285QjV8% (BldA) [Mass fraction]100 % Ann Perera Other [employer] Other 07-31-2023 16:00-0400Systolic blood uckuabxe598 mm[Hg] Ann Perera Other [employer] Other 03-04-2023 09:55-0500Body .48 Glen Owens Other [employer] Other 03-04-2023 09:55-0500Body mass index (BMI) [Ratio] 25.97 kg/r7Bffiiimart Owens Other [employer] Other 03-04-2023 09:55-0500Body gumgwxzvhlz87.8 [degF]Charlene Owens Other [employer] Other 03-04-2023 09:55-0500Body yynftm23.41 kgPamart Owens Other [employer] Other 03-04-2023 09:55-0500Diastolic blood yoqdbwsz68 mm[Hg] Charlene Owens Other [employer] Other 03-04-2023 09:55-8371PkS7% (BldA) [Mass fraction]99 % Charlene Owens Other [employer] Other 03-04-2023 09:55-0500Systolic blood lvhmaczp535 mm[Hg] Charlene Owens Other [employer] Other 12-08-2022 18:10-0500Body afttpy479.48 cmAcarlota Kong Other [employer] Other 12-08-2022 18:10-0500Body mass index (BMI) [Ratio] 23.77 kg/j8TeimsSydnee Kong Other [employer] Other 12-08-2022 18:10-0500Body .8 [degF]Sydnee Kong Other [employer] Other 12-08-2022 18:10-0500Body .97 kgSydnee Kong Other [employer] Other 12-08-2022 18:10-0500Diastolic blood mm[Hg] Sydnee Kong Other [employer] Other 12-08-2022 18:10-0500Respiratory rate16 /minAmbstephen Kong Other [employer] Other 12-08-2022 18:10-8721KjW9% (BldA) [Mass fraction]100 % Sydnee Kong Other [employer] Other 12-08-2022 18:10-0500Systolic blood zkjsduim220 mm[Hg] Sydnee Kong Other [employer] Other 05-31-2022 17:00-0400Body zfvafs361.48 cmDavid Hykes Other [employer] Other 05-31-2022 17:00-0400Body mass index (BMI) [Ratio]25.6 kg/a5Pdtvg Hykes Other [employer] Other 05-31-2022 17:00-0400Body etuzvt86.5 kgDavid Hykes Other [employer] Other 10-05-2021 17:00-0400Body fuxuoq659.48 cmDavid Hykes Other [employer] Other 10-05-2021 17:00-0400Body mass index (BMI) [Ratio]25.6 kg/t9Imexh Hykes Other [employer] Other 10-05-2021 17:00-0400Body .5 kgDayukid Garry Other [employer] Other 09-29-2021 15:30-0400Body gycqqt572.48 cmPamelraul Owens Other [employer] Other 09-29-2021 15:30-0400Body mass index (BMI) [Ratio]25.6 kg/k8GpuhzlCharlene Owens Other [employer] Other 09-29-2021 15:30-0400Body [degF]Charlene Owens Other [employer] Other 09-29-2021 15:30-0400Body dmpuiv87.5 kgCharlene Owens Other [employer] Other 09-29-2021 15:30-0400Respiratory rate18 /minCharlene Owens Other [employer] Other 09-29-2021 15:30-4399DtP1% (BldA) [Mass fraction]98 % Charlene Owens Other [employer] Other Encounters Encounter DateEncounter TypeCare ProviderFacilityStart: 09-21-2025 End: 44-97-3507mekknovztkOkom Asaad MD Work Phone: -[facility] ClydeStart: 09-21-2025 End: 00-14-8506Cfdxjrs encounter procedureLizbeth Owens NP-C-[facility] [place] Work Phone: Start: 09-21-2025 End: 18-88-2729Jcjrcgq encounter statusLizbeth Owens PROVISIONING ANALYST[facility]: 05-47-3079Hgqzjeu encounter statusImagail Gates MD Work Phone: [facility]: 09-14-2025 End: 70-93-5220Pbimkywnd encounterBayley Malicki LPCNOMS [facility] HealthStart: 09-06-2025 End: 63-87-6985Kgfkoliy ReferredPatricsivan Dumontclearsky [facility] SUPERVISOR MAILS-[facility] [place] Work Phone: Start: 09-06-2025 End: 82-60-5143sufyhtacvqAbug Asaad MD Work Phone: -[facility] ClydeStart: 09-06-2025 End: 56-04-4865Indiqmr encounter procedurePatricsivan Norton [facility] SUPERVISOR MAILS-[facility] [place] Work Phone: Start: 08-05-2025 End: 98-39-3150kutgykhldjUdye AsaadFacility:[facility] Start: 99-61-5723Sqd-patient / Non-visitImad Mamadou [facility] Work Phone: Start: 06-16-2025 End: 37-24-8017Ljogapxiw Result EncounterGeneric External Data ProviderNOMS External Department UnsolicitedStart: 06-16-2025 End: 01-24-3391Togsqgqqz Result EncounterGeneric External Data ProviderNOMS External Department UnsolicitedStart: 05-26-2025 End: 16-97-3909vjqehbirbpJYHAKL MALICKINot AvailableStart: 05-26-2025 End: 39-59-5716Zeosre flowsheetBayley Malicki LPCNOMS CI BHStart: 05-26-2025 End: 05-79-8769Atiwad flowsheetBayley Malicki LPCNOMS CI BHStart: 05-11-2025 End: 39-68-7714Nlojlrb encounter procedureCorey Shamika DO Work Phone: [facility] Work Phone: Start: 05-11-2025 End: 81-58-1235Nqudfgef preventive med est patient 18-39 yrsCorey Shamika DO Work Phone: [facility] OBComment on above:Well woman exam with routine gynecological exam; Alcoholic cirrhosis, unspecified whether ascites present (HCC); Constipation, unspecified constipation type; Abnormal uterine bleeding (AUB)Start: 05-11-2025 End: 58-30-1728vmbhllharhHABLD FAZIONot AvailableStart: 05-11-2025 End: 23-13-1194Ndgtzg flowsheetCorey Shamika DO Work Phone: noms BCP OBStart: 05-11-2025 End: 58-43-9093Rcvmhw flowsheetCorey Shamika DO Work Phone: noms BCP OBStart: 05-11-2025 End: 98-92-8381Sqmbgtrdy Result EncounterCorey Shamika DO Work Phone: noms External Department UnsolicitedStart: 04-21-2025 End: 74-33-3628kpmfqvuqjtGHMMAI MALICKINot AvailableStart: 04-21-2025 End: 20-77-0755Oqomnx flowsheetBayley Malicki LPCNOMS CI BHStart: 04-21-2025 End: 08-10-4985Xromdw flowsheetBayley Malicki LPCNOMS CI BHStart: 04-13-2025 End: 86-64-7436eafsiwefabLeaucgzkaParkview Health Work Phone: Start: 04-13-2025 End: 88-79-5705Fjxjiay encounter procedureC[facility] [place] Work Phone: Start: 04-07-2025 End: 72-23-0780lkfjvbnsciBNYJBV MALICKINot AvailableStart: 03-10-2025 End: 07-68-3530rvnmbxqxlrCGDASW MALICKINot AvailableStart: 03-10-2025 End: 77-60-6177Shjyzn flowsheetBayley Malicki LPCNOMS CI BHStart: 03-10-2025 End: 29-31-5392Spdrig flowsheetBayley Malicki LPCNOMS CI BHStart: 02-24-2025 End: 24-40-7367zmzpxsbwmwAYCFNY MALICKINot AvailableStart: 02-24-2025 End: 60-50-1316Nyaygy flowsheetBayley Malicki LPCNOMS CI BHStart: 02-24-2025 End: 71-05-7907Rgxpwi flowsheetBayley Malicki LPCNOMS CI BHStart: 02-03-2025 End: 49-89-6634Ydmuhm flowsheetBayley Malicki LPCNOMS CI BHStart: 02-03-2025 End: 17-95-8459Ejlppr flowsheetBayley Malicki LPCNOMS CI BHStart: 02-03-2025 End: 46-01-0093awrhymawuhWLBGHY MALICKINot AvailableStart: 01-10-2025 End: 46-73-2710Ymiztg outpatient visit [facility]Bob[facility] Work Phone: noMS CI BHComment on above:FRANKLIN (generalized anxiety disorder) (CMS/HCC); Social anxiety disorder (CMS/HCC); Alcoholic cirrhosis of liver without ascites (K70.30); History of alcohol abuseStart: 01-10-2025 End: 08-01-0995tozhszjlthXBAVGZVT BRITTONNot AvailableStart: 01-10-2025 End: 88-69-4174Waxghb Geovany Trinidad [facility] Work Phone: noMS CI BHStart: 01-10-2025 End: 49-61-7496Dzgdjj danielaGiacomo Trinidad [facility] Work Phone: noms CI BHStart: 12-29-2024 End: 56-15-0957wuufbvfzfpUMNTEV MALICKINot AvailableStart: 12-29-2024 End: 21-16-1653Kweiig flowsheetBayley Malicki LPCNOMS CI BHStart: 12-29-2024 End: 89-13-7129Yrtidi flowsheetBayley Malicki LPCNOMS CI BHStart: 12-25-2024 End: 04-33-4378Ivvtrvf encounter procedureEd Packerk PROVISIONING ANALYST-C Work Phone: [facility] [place] Work Phone: Start: 12-25-2024 End: 53-82-3944ozgnvqhkenZfyaqmyl N Copeland PROVISIONING ANALYST-C Work Phone: [facility] Work Phone: Start: 12-13-2024 End: 40-44-9049tpwqomvxizXxemajpvu [facility] Work Phone: Start: 12-13-2024 End: 47-49-2723Wvlhffc encounter procedureC[facility] Work Phone: Start: 12-08-2024 End: 78-94-4942Woixzx outpatient visit 25 minutesBobo Trinidad PROVISIONING ANALYST Work Phone: NOQI CI BHComment on above:FRANKLIN (generalized anxiety disorder) (CMS/HCC); Social anxiety disorder (CMS/HCC); Alcoholic cirrhosis of liver without ascites (K70.30); History of alcohol abuseStart: 12-08-2024 End: 16-06-7316xvggqvwgmfUAYBBTZA BRITTONNot AvailableStart: 12-07-2024 End: 45-13-2990Lzijig outpatient visit 15 minutesEd Packerk PROVISIONING ANALYST Work Phone: NONJ CWM FMComment on above:FRANKLIN (generalized anxiety disorder) (CMS/HCC) (Primary Dx); Alcohol use disorder in remissionStart: 12-07-2024 End: 54-64-3269edpfglvqbeDVKJBSSV FITZPATRICKNot AvailableStart: 12-07-2024 End: 05-80-8831Rrtiuu flowsheetBredvinany Copeland PROVISIONING ANALYST Work Phone: noms CWM FMStart: 12-07-2024 End: 51-92-7894Tvuhmw flowsheetBrittany Copeland PROVISIONING ANALYST Work Phone: noms CWM FMStart: 12-01-2024 End: 86-87-3523xulkyfqabgSWKMUF MALICKINot AvailableStart: 12-01-2024 End: 32-43-2812Chxcwa flowsheetBayley Malicki LPCNOMS CI BHStart: 12-01-2024 End: 11-81-8633Bwchtg flowsheetEnocy Waltericki LPCNOMS CI BHStart: 11-08-2024 End: 59-15-8170Ebtbwu Geovany Trinidad PROVISIONING ANALYST Work Phone: NOMS CI BHStart: 11-08-2024 End: 65-46-1770Cejbrq Geovany Trinidad PROVISIONING ANALYST Work Phone: noms CI BHStart: 11-08-2024 End: 22-23-0151Oikopp outpatient new [address] Trinidad PROVISIONING ANALYST Work Phone: noms CI BHComment on above:FRANKLIN (generalized anxiety disorder) (CMS/HCC); Social anxiety disorder (CMS/HCC); History of substance use; Alcoholic cirrhosis of liver without ascites (K70.30)Start: 11-08-2024 End: 16-77-7406lhcpqshbxrFBLNIJNW BRITTONNot AvailableStart: 10-25-2024 End: 28-64-7229Tbvlvbquo Result EncounterGeneric External Data ProviderNOMS External Department UnsolicitedStart: 10-25-2024 End: 46-06-9030Wqdvzcvaq Result EncounterGeneric External Data ProviderNOMS External Department UnsolicitedStart: 10-25-2024 End: 69-38-3372Wropufgdg encounterMelonie LUKE CWM FMStart: 10-20-2024 End: 40-56-3965Gidoalkfc Result EncounterBrittany Copeland PROVISIONING ANALYST Work Phone: noms External Department UnsolicitedStart: 10-20-2024 End: 28-34-0805Qvlocjiln Result EncounterBrittany Copeland PROVISIONING ANALYST Work Phone: NOMS External Department UnsolicitedStart: 09-06-2024 End: 29-62-5160Jzvzxn flowsheetEd Copeland PROVISIONING ANALYST Work Phone: NOMS CWM FMStart: 09-06-2024 End: 68-18-9766Mlpfaz flowsAmelia Copeland PROVISIONING ANALYST Work Phone: NOCY CWM FMStart: 09-06-2024 End: 77-49-7463Ccrqky outpatient visit 10 minutesBrash Copeland PROVISIONING ANALYST Work Phone: NOMS CWM FMComment on above:FRANKLIN (generalized anxiety disorder) (CMS/HCC) (Primary Dx); Alcohol use disorder in remission; Alcoholic cirrhosis of liver without ascites (K70.30); Chronic fatigue; Psychophysiological insomniaStart: 09-06-2024 End: 49-12-9014uecmtjapuaXOFPUOBU FITZPATRICCHANCEot AvailableStart: 08-17-2024 End: 56-51-9223AjivzuJvkgze Mendoza MANOMS CWM FMComment on above:Alcohol use disorder in remission (Primary Dx)Start: 07-28-2024 End: 78-89-5155FieoocUghyyy Mendoza MANOMS CWM IMComment on above: Psychophysiological insomniaStart: 05-03-2024 End: 80-94-2352Xfqqbytjc Result EncounterStere Deshpande MD Work Phone: noms External Department UnsolicitedStart: 05-03-2024 End: 12-86-7176Dkkdzuaxo Result EncounterStere Deshpande MD Work Phone: noms External Department UnsolicitedStart: 04-16-2024 End: 05-97-5026qqehzesnrvAcionrcyoParkview Health Work Phone: Start: 04-16-2024 End: 64-79-4221Hvjwcne encounter procedureC[facility] Work Phone: Start: 01-28-2024 End: 01-23-9999Zpfugbt encounter statusSajodi LUKE HealthcareStart: 01-03-2024 End: 37-21-0804Fqtzwhzha Result EncounterGeneric External Data ProviderNOMS External Department UnsolicitedStart: 01-03-2024 End: 97-10-3933Khzzpwcol Result EncounterGeneric External Data ProviderNOMS External Department UnsolicitedStart: 09-05-2023 End: 88-07-3558okaajmprfeYbtk Asaad Other [employer] Other Start: 85-59-6454Gzrgizezs encounterImad AsaadFPG Referral CoordinatorStart: 08-08-2023 End: 54-64-4636Wqfweuerb to same day surgery centerMD Shaikh Deshpande Work Phone: [facility] Work Phone: Start: 08-08-2023 End: 69-20-8556kiqawcfxccSZ Carneyyasir Deshpande Work Phone: [facility] Work Phone: Start: 07-30-2023 End: 23-20-0211bzefdxfgouVgbe Asaad Other [employer] Other Start: 36-88-3380Hienhgvoy encounterImad AsaadFPG GastroenterologyStart: 06-30-2023 End: 76-10-7398hwwnkaydqdUhso Asaad Other [employer] Other Start: 07-41-7695Yvgcds outpatient visit 25 minutes Imad AsaadFPG GastroenterologyStart: 06-16-2023 End: 02-07-9683Mmrajgw encounter procedure Jeramy Work Phone: [facility] [place] Work Phone: Start: 06-16-2023 End: 38-15-6690jiiuyppxwxFobwkj Dilma Other [employer] Other Start: 90-90-7990Gxbioq outpatient visit 15 minutes Ann PereraFPG Urgent Care ClydeStart: 04-15-2023 End: 12-03-5069fggzgnhsbqQFGLKY H FAWWADFacility:T2Kmqly: 02-14-2023 End: 64-91-0509vvpgpxkvpyAI RODNEY Hemal JOHNFacility:C6Fimjv: 01-18-2023 End: 36-11-2459teqokddjwcLverfl Dymond Other [employer] Other Start: 12-80-9131Ywbpnx outpatient visit 15 minutes Charlene GracielaFPG Urgent Care ClydeStart: 01-06-2023 End: 51-51-1217wmaejzxbqpDW CHALO SHAMIKA .Facility:E2Ejwcw: 11-25-2022 End: 90-60-3471tslnkruxebGBLCOH H FAWWADFacility:X8Cvgpd: 11-21-2022 End: 10-67-1991ihitkayulzPL CHALO SHAMIKA .Facility:I7Oguql: 10-24-2022 End: 31-58-6344guuwfkilhnRomlo Keller Other [facility] [employer] Other Start: 60-27-8617Rbeoqe outpatient visit 25 minutes Sydnee KongFPMonster Urgent Care ClydeStart: 10-15-2022 End: 19-65-9411uppqxnoidyQMTGYR H FAWWADFacility:K7Jxwkw: 08-13-2022 End: 81-07-6796rmlihshkecUEKPAY H FAWWADFacility:Z6Barge: 05-08-2022 End: 34-93-2750flipcenofiTqclm Hycain Other [employer] Other Start: 87-16-8782Lldrewqew encounterDavid HykesFPG GastroenterologyStart: 04-23-2022 End: 90-66-1861rwoixuwyxaYcpum Hykes Other [employer] Other Start: 73-57-9626Zhcswxffs encounterDavid HykesFPG GastroenterologyStart: 04-16-2022 End: 37-10-9092ppqhhkdvjpJevwg Hykes Other [employer] Other Start: 23-57-0572Crhxoh outpatient visit 25 minutes Rodney HykesFPG GastroenterologyStart: 03-04-2022 End: 11-14-3943dsyhmiviwzCzole Hykes Other [employer] Other Start: 79-05-5996Hjnhdnflk encounterDavid HykesFPG GastroenterologyStart: 12-24-2021 End: 63-67-2847klqorvgndaBqcum Hykes Other [employer] Other Start: 53-81-4187Qdeckjcql encounterDavid HykesFPG GastroenterologyStart: 12-14-2021 End: 54-05-5269gbizilxlwrIuepa Hykes Other [employer] Other Start: 88-55-1010Gyzakbmoy encounterDavid HykesFPG GastroenterologyStart: 99-54-3549Mmfito outpatient visit 15 minutesDavid Hykes FPG GastroenterologyStart: 07-61-2591Gnopgk outpatient visit 15 minutesPamela DymondFPG Urgent Care [place] Procedures DateProcedureProcedure DetailPerforming ClinicianStart: 83-68-7347Xwyyb Strep (POC)Vicky Gates MD Work Phone: Start: 94-56-2080Lxuyhd cultureVicky Gates MD Work Phone: Start: 64-91-1728ZCI CBC WITH AUTO DIFFGeneric External Data ProviderStart: 05-26-2025 End: 99-58-5169Hdoxngvlswpgl w/patient 30 minutesGAD (generalized anxiety disorder)Nav Guzmán LPCComment on above:FRANKLIN (generalized anxiety disorder) ; Social anxiety disorderStart: 93-31-1597GEU,APTIMA HPV,AGE GDLNGeneric External Data ProviderStart: 37-32-1968Pgbarextvlq observation [Identifier] in Cervix by Cyto stainNav Guzmán LPCStart: 04-21-2025 End: 24-23-1669Nejflvkaysyjp w/patient 60 minutesGAD (generalized anxiety disorder) (CMS/HCC)Nav Guzmán LPCComment on above:FRANKLIN (generalized anxiety disorder) (CMS/HCC); Social anxiety disorder (CMS/HCC)Start: 03-10-2025 End: 40-33-6321Qidjbmzzwmzex w/patient 60 minutesGAD (generalized anxiety disorder) (CMS/HCC)Nav Guzmán LPCComment on above:FRANKLIN (generalized anxiety disorder) (CMS/HCC)Start: 02-24-2025 End: 46-11-1761Ydlzoqojxwglc w/patient 60 minutesGAD (generalized anxiety disorder) (CMS/HCC)Nav Guzmán LPCComment on above:FRANKLIN (generalized anxiety disorder) (CMS/HCC)Start: 12-29-2024 End: 09-81-0779Mpkzvjdwpknnt w/patient 60 minutesGAD (generalized anxiety disorder) (CMS/HCC)Nav Guzmán LPCComment on above:FRANKLIN (generalized anxiety disorder) (CMS/HCC); Social anxiety disorder (CMS/HCC)Start: 17-14-4126Hsmxzuihavocpsm of liver Ed Copeland PROVISIONING ANALYST-C Work Phone: Start: 12-01-2024 End: 81-49-1807Keqkuabxwdv diagnostic evaluationGAD (generalized anxiety disorder) (CMS/HCC)Nav Guzmán LPCComment on above:FRANKLIN (generalized anxiety disorder) (CMS/HCC); Alcohol use disorder in remission; Social anxiety disorder (CMS/HCC)Start: 48-25-8149UBUOPV BLOOD*Generic External Data ProviderStart: 51-90-1635UJR FERRITINGeneric External Data ProviderStart: 83-78-5658TOYCQ IRON AND TIBCGeneric External Data ProviderStart: 48-56-1737REJ CBC WITH AUTO DIFFBrittany Copeland PROVISIONING ANALYST Work Phone: Start: 99-14-9814LT RIGHT UPPER QUADRANTStere Deshpande MD Work Phone: Start: 09-85-3156Mwxsy Strep (POC)Start: 13-95-4630CY RIGHT UPPER QUADRANTGeneric External Data ProviderStart: 08-08-2023 EsophagogastroduodenoscopyMD Shaikh Jeramy Work Phone: Start: 73-23-1112C-ray of right footMD Shaikh Jeramy Work Phone: Plan of Treatment DateCare ActivityDetailAuthorStart: 25-94-9107Sfxjjumck for malignant neoplasm of cervixNOMS HealthcareStart: 05-15-2026 End: 18-94-5605Gtcgrcj encounter procedureNOMS BCP OBStart: 03-62-7340Nxerwojg identified in Throat by Aerobe cultureAvita Health System [facility] Hospitaltart: 10-36-6773Hntxhr cultureThroat CultureAvita Health System Ontario Hospitaltart: 55-73-8900KdsdxtuuxAvita Health System Ontario Hospitaltart: 37-11-2972METBO-19 Vaccine ( season)COVID-19 Vaccine ( season)[facility] HealthcareStart: 30-72-6716Awzuqhoki vaccinationNOMS HealthcareStart: 05-26-2025 End: 00-61-6113Nzrkun Work05/26/2025 3:00 PM EDT Social Work [facility] [address] [place] [address] Nav Guzmán LPC [facility] BHStart: 05-11-2025 End: 08-84-6798Bcgludo encounter procedureNOMS BCP OBComment on above:Arrived Start: 05-11-2025 End: 12-12-9021QZ Liver limitedUS abdomen limited liver Imaging Routine Alcoholic cirrhosis, unspecified whether ascites present (HCC) Expected: 05/11/2025, Expires: 05/11/2026[facility] Work Phone: comment on above:Expected: 05/11/2025, Expires: 05/11/2026Start: 05-11-2025 End: 87-91-4768WM PelvisUS Pelvis w/ TV Imaging Routine Abnormal uterine bleeding (AUB) Expected: 05/11/2025, Expires: 11/10/2025NOMS HealthcareComment on above:Expected: 05/11/2025, Expires: 11/10/2025Start: 05-05-2025 End: 16-42-0180Sjnigd Work05/05/2025 3:00 PM EDT Social Work [facility] [address] [place] [address] Nav Guzmán LPC [facility] BHStart: 04-21-2025 End: 39-83-5957Uerfjd WorkNOMS CI BHComment on above:ArrivedStart: 04-07-2025 End: 60-80-0423Ytfhpg Work04/07/2025 3:00 PM EDT Social Work [facility] [address] [place] [address] Nav Guzmán LPC [facility] BHStart: 03-10-2025 End: 13-88-2425Vokvjh Work03/10/2025 3:00 PM EDT Social Work [facility] [address] [place] [address] Nav Guzmán LPC [facility] BHStart: 03-07-2025 End: 10-55-8943Wwgpgwf encounter procedureNOMS CWM FMStart: 02-24-2025 End: 51-64-2391Wxhqqt Work02/24/2025 3:00 PM EDT Social Work [facility] [address] [place] [address] Nav Guzmán LPC [facility] BHStart: 02-10-2025 End: 38-66-9413Axrcli Work02/10/2025 3:00 PM EDT Social Work [facility] [address] [place] [address] Nav Guzmán LPC [facility] BHStart: 02-03-2025 End: 33-25-4847Wzixym Work02/03/2025 9:00 AM EDT Social Work [facility] [address] [place] [address] Nav Guzmán LPC ArrivedNOMS CI BHComment on above:ArrivedStart: 01-25-2025 End: 47-17-4158Imjaon Work01/25/2025 3:00 PM EDT Social Work [facility] [address] [place] [address] Nav Guzmán LPCNO SWS BHStart: 01-10-2025 End: 03-43-0959Xrmctro encounter procedureNOMS CI BHComment on above:FRANKLIN (generalized anxiety disorder) (CMS/HCC); Social anxiety disorder (CMS/HCC); Alcoholic cirrhosis of liver without ascites (K70.30); History of alcohol abuseStart: 12-29-2024 End: 09-42-1230Ldfnav WorkNOMS CI BHComment on above:ArrivedStart: 12-08-2024 End: 08-39-7404Vsknvzj encounter /22/2025 3:30 PM EST Office Visit [facility] [address] [place] [address] Bobo Trinidad NP [address] [place] [address] [facility] BHStart: 12-07-2024 End: 24-18-8581Pvqnkkh encounter procedureNOMS CWM FMComment on above:Arrived Start: 12-06-2024 End: 22-94-7466Wjojwfy encounter quookdwqr49/20/2025 3:30 PM EST Office Visit [facility] [address] [place] [address] Bobo Trinidad, REJI [address] [place] [address] [facility] CI BHStart: 12-01-2024 End: 35-61-7398Bvzgjd WorkNOMS CI BHComment on above:ArrivedStart: 11-08-2024 End: 48-41-2509Tpczyqu encounter ryqxpapie17/23/2024 10:00 AM EST Office Visit [facility] [address] [place] [address] Bobo Trinidad NP [address] [place] [address] FRANKLIN (generalized anxiety disorder) (CMS/HCC)[facility] CI BHComment on above:FRANKLIN (generalized anxiety disorder) (CMS/HCC) Start: 10-25-2024 End: 33-35-8155Phxjpluhd (Vitamin B12) [Mass/volume] in Serum or PlasmaVitamin B12 Lab Routine Anemia, unspecified type Expected: 10/25/2024 (Approximate), Expires: 10/25/2025[facility] Work Phone: Comment on above:Expected: 10/25/2024 (Approximate), Expires: 10/25/2025Start: 10-25-2024 End: 60-53-7544Iqivblyq [Mass/volume] in Serum or PlasmaFerritin Lab Routine Anemia, unspecified type Expected: 10/25/2024 (Approximate), Expires: 10/25/2025 NOMS HealthcareComment on above:Expected: 10/25/2024 (Approximate), Expires: 10/25/2025Start: 10-25-2024 End: 89-08-5717Lzwr + transferrin + TIBCIron + transferrin + TIBC Lab Routine Anemia, unspecified type Expected: 10/25/2024 (Approximate), Expires: 10/25/2025 NOMS HealthcareComment on above:Expected: 10/25/2024 (Approximate), Expires: 10/25/2025Start: 10-25-2024 End: 04-33-1949Udeybukyfys of occult blood in single stool specimenOccult blood x 1, stool Lab Routine Anemia, unspecified type Expected: 10/25/2024 (Approximate), Expires: 10/25/2025[facility] HealthcareComment on above:Expected: 10/25/2024 (Approximate), Expires: 10/25/2025Start: 09-06-2024 End: 702057-ofbphrpxhemfwi D3 [Mass/volume] in Serum or PlasmaVitamin D 25 hydroxy Lab Routine Alcohol use disorder in remission Chronic fatigue Expected: 09/06/2024 (Approximate), Expires: 09/06/2025[facility] HealthcareComment on above: Expected: 09/06/2024 (Approximate), Expires: 09/06/2025Start: 09-06-2024 End: 77-20-9028Ffhose RBCFolate RBC Lab Routine Alcohol use disorder in remission Chronic fatigue Expected: 09/06/2024 (Approximate), Expires: 09/06/2025[facility] HealthcareComment on above:Expected: 09/06/2024 (Approximate), Expires: 09/06/2025Start: 09-06-2024 End: 16-71-9961Nlnepmf R0Ajxoifl B1 Lab Routine Alcohol use disorder in remission Chronic fatigue Expected: 09/06/2024 (Approximate), Expires: 09/06/2025[facility] HealthcareComment on above:Expected: 09/06/2024 (Approximate), Expires: 09/06/2025Start: 09-06-2024 End: 58-74-9261Hzckuhs encounter procedureNOMS [facility] FMComment on above:FRANKLIN (generalized anxiety disorder) (CMS/HCC) (Primary Dx)Start: 09-01-2024 End: 07-88-4536Axushom encounter /16/2024 3:30 PM EDT Office Visit [facility] [address] [place] [address] Ed Copeland NP [address] [place] [address] [facility]ON FMStart: 64-12-8037Uoqojyzwm vaccinationInfluenza Vaccine (#1)[facility] HealthcareStart: 71-03-4318ThystxqruLakehealth Tripoint Medical Center Start: 48-43-9342Jlpnvmzzp for malignant neoplasm of cervixNOMS HealthcareStart: 25-85-0268EPQ Vaccines (1 - 3-dose SCDM series)HPV Vaccines (1 - 3-dose SCDM series)[facility] HealthcareStart: 13-52-1306Mfnamhdft for malignant neoplasm of cervixPap SmearNOMS HealthcareStart: 98-67-7252Skwxjpfdhryo Vaccine: Pediatrics (0 to 5 Years) and At-Risk Patients (6 to 64 Years) (1 of 2 - PCV)Pneumococcal Vaccine: Pediatrics (0 to 5 Years) and At-Risk Patients (6 to 64 Years) (1 of 2 - PCV)[facility] HealthcareStart: 36-99-2981Pqzgikq of varicella vaccinationVaricella Vaccines (1 of 2 - 13+ 2-dose series)[facility] HealthcareStart: 1995 DTaP/Tdap/Td Vaccines (1 - Tdap)DTaP/Tdap/Td Vaccines (1 - Tdap)[facility] Start: 60-84-5992XEG Vaccines (1 of 1 - Standard series)MMR Vaccines (1 of 1 - Standard series)[facility] HospitalBacteria identified in Throat by Aerobe culture [facility] CenterCBC W Auto Differential panel - BloodCBC and differential Lab Routine Alcohol use disorder in remission Chronic fatigue Ordered: 09/06/2024[facility] HealthcareComment on above:Ordered: 09/06/2024 Comprehensive metabolic 2000 panel - Serum or PlasmaComprehensive metabolic panel Lab Routine Alcohol use disorder in remission Chronic fatigue Ordered: 09/06/2024[facility] Healthcare Work Phone: Comment on above:Ordered: 09/06/2024omprehensive metabolic 2000 panel - Serum or PlasmaLakehealth Tripoint Medical CenterCytology Cervical or vaginal smear or scraping studyPap Smear Pathology and Cytology Routine Well woman exam with routine gynecological exam Ordered: 05/11/2025[facility] Healthcare Work Phone: comment on above:Ordered: 05/11/2025Human papilloma virus DNA [Presence] in Unspecified specimen by Probe with amplificationHPV DNA probe, amplified Microbiology Routine Well woman exam with routine gynecological exam Ordered: 05/11/2025[facility] HealthcareComment on above:Ordered: 05/11/2025 [facility] EducationC[facility] Work Phone: Thiamine [Moles/volume] in BloodLakehealth Tripoint Medical CenterUrine cultureLakehealth Tripoint Medical CenterUS LiverAdventHealth for Children Immunizations Immunization DateImmunizationNotesCare WbwaxteyEdjjcmkm85-81-7213xptsvsfso A vaccine, adult dosageSaebel Mendoza [facility] HospitalQmallekuwc33-24-1272hppnxrixi B vaccine, adult dosageSaebel Mendoza [facility] HospitalAmkxqzliyo53-10-8474vqodwabzi B vaccine, adult dosageSaebel Mendoza [facility] HospitalRblherpnhb53-05-4994fobnuqspy A vaccine, adult dosageSaebel Mendoza [facility] HospitalEspxstozfh93-75-3019kgxkhhxqq B vaccine, adult dosageSaebel Mendoza [facility] HospitalFhzqmgrhmx77-74-7877Gvdjgxgl 500 mg Charlene Owens Other [facility] [employer] Other Payers DatePayer CategoryPayerPolicy [id number] Health Insurance [employer] Member Subscriber Plan / Payer (Effective 2022-Present) Name: Radha Hines Raul Relation to Subscriber: Self Name: Radha Hines Raul Payer ID: Not on file Type: Not on file Address: [address] [id number] [employer] [id number] 2022-Present [phone] [address] [address] [place] [id number]0.315 [id number] 2.16.840.1.084773.3.57[id number] 2.16.840.1.575204.3.57[id number] 2.16.840.1.570978.3.57[id number] 2.16.840.1.684203.3.57[id number] 2.16.840.1.476580.3.57[id number] 2.16.840.1.290968.3.57[id number] 2.16.840.1.414707.3.57[id number] 2.16.840.1.978134.3.579.[id number] 2.16.840.1.161458.3.579.[id number] 2.16.840.1.213752.3.57[id number] 2.16.840.1.749761.3.57[id number] 2.16.840.1.365698.3.57[id number] 2.16.840.1.341909.3.57[id number] 2.840.1.439643.3.57[id number] 2.16840.1.481325.3.57[id number] 2.0.1.172583.3.57[id number] 2.840.1.587961.3.57[id number] 2.0.1.758493.3.579.2.[id number] 2.0.1.105502.3.57[id number] 2..1.525074.3.57[id number] 2.0.1.221485.3.579.[id number] 2.840.1.689780.19 [id number] [id number] 2..1.9[id number] 2.0.1.596254.3.579.2.531 [id number] 2..1.662348.3.579.2.531 Social History DateTypeDetailFacilityUnknown if ever smokedNoAC[employer] Other Start: 05-04-2024 End: 37-67-0718Wzl Assigned At BirthNoAC[employer] Other Start: 08-08-2023 End: 38-53-6494Wovykhi smoking status NHISSmoker (finding)[facility] Hospitaltart: 56-30-5023J[facility]: 05-04-2024 End: 46-74-6768Uulcfhf smoking status NHISSmokes tobacco dailyNOMS Healthcare History of tobacco useCigarette SmokerNOMS HealthcareHistory of tobacco use Passive smokerNOMS HealthcareStart: 01-28-2024 End: 48-43-3257Quaesjq use and exposureSmokeless tobacco non-userNOMS Healthcare Start: 05-04-2024 End: 10-75-1991Kllqcbvvh beverage intakeEx-drinker (finding)[facility] Start: 05-04-2024 End: 18-34-5694Diguqbx of Social functionNOMS HealthcareStart: 37-49-0881Sttztsk Comment6-10NOMS HealthcareStart: 32-44-9372Dgzjwzr Commentcaffeine intake: 1-2 cups per dayNOMS HealthcareStart: 65-15-5744Hdxdgg identityIdentifies as female gender (finding)[facility] HealthcareStart: 06-09-6424Qsdxiwddf11UQMU HealthcareStart: 05-24-5157Zncsndn Commentcaffeine intake: 3 cups per day coffeeNOMS Healthcare Start: 49-34-7815Juh often do you need to have someone help you when you read instructions, pamphlets, or other written material from your doctor or pharmacy [SILS]NeverNOMS HealthcareAre you now , , , , never or living with a partner?DivorcedNOMS HealthcareHow often to you have a drink containing alcohol?NeverNOMS HealthcareHow hard is it for you to pay for the very basics like food, housing, medical care, and heatingSomewhat hardNOMS HealthcareDo you feel stress - tense, restless, nervous, or anxious, or unable to sleep at night because yourmind is troubled all the time - these days [OSQ]Rather muchNOMS Healthcare(I/We) worried whether (my/our) food would run out before (I/we) got money to buy more.Never trueNOMS HealthcareAt any time in the past 12 months, were you homeless or living in senior care [including now]?No [facility] HealthcareStart: 12-13-2024 End: 84-91-5184NzrMpfifh (finding)[facility] Hospitaltart: 63-00-1356Aukpptuhs beverage intakeLifetime non-drinker (finding)[facility] Goals DatePatient GoalDesired Activity/State Functional Status HesiOzwisadqypCgbdpyIqwyesej19-34-2568Xxhxfeivjcr anxiety disorder 7 item (FRANKLIN-7)[facility] HospitalYwmiddacuo51-97-1712Jxvts score [AUDIT-C]0 11/30/2024 9:20 AM EST Mychart, GenericNOEllis Fischel Cancer CenterKixjdccbqv65-15-1389Chl often do you have a drink containing alcohol?Never 11/30/2024 9:20 AM EST Mychart, Generic NeverNOMS Rbqjuqddhp01-18-9380Izpawesgby statusPatient does not drink 11/30/2024 9:20 AM EST Mychart, Generic Patient does not drinkGeneral [facility] Army Community HospitalQuwqqbpocw76-47-0307Qpi often do you have 6 or more drinks on 1 occasion?Never 11/30/2024 9:20 AM EST Mychart, Generic NeverNOEllis Fischel Cancer CenterUxqducvzeh71-22-5710Hrzajtk Health Questionnaire 2 item (PHQ- 2) [Reported][facility] HospitalEntrkwgqip23-34-1450ZOW-0 quick depression assessment panel [Reported.PHQ][facility] HospitalRfbqfhbujq13-55-3717Jjhugcr Health Questionnaire 2 item (PHQ- 2) [Reported][facility] Work Phone: [phone]NGR-7 quick depression assessment panel [Reported.PHQ][facility] Clinical Notes 08-10-2021 to 09-14-2025 Note Date & IvnoOgteAlipwsne30-80-6865 Telephone encounter Note* Telephone Encounter - Nav Guzmán LPC - 09/14/2025 9:44 AM EDT Clinician spoke to client over the phone and explained resignation, offered transfer/referral options, and offered resources. Client declined at this time, said, I'm doing good , and clinician encouraged client to reach out to [facility] if she wants counseling in the future. [facility] HospitalPovqgglkzx32-31-4023 Miscellaneous Notes* Telephone Encounter - Nav Guzmán LPC - 09/14/2025 9:44 AM EDT Clinician spoke to client over the phone and explained resignation, offered transfer/referral options, and offered resources. Client declined at this time, said, I'm doing good , and clinician encouraged client to reach out to [facility] if she wants counseling in the future. documented in this encounterGeneral [facility] Wood Army Community HospitalXjgurnxxac22-08-2298 Evaluation note* Diagnosis Onset Date Resolution Status Admit Date Chills acuteOctober 2024 5:37pm [facility] Work Phone: 1(485) 710-796910-21-2025 Evaluation note* Diagnosis Onset Date Resolution Status Admit Date Chills resolvedOctober 2024 5:37pmAlcoholic cirrhosis of liver with ascitesacute September 21, 2025 10:23amAnxietyacuteNov2024 10:23amEncounter for wellness examinationacuteSeptember 21, 2025 10:23amFatigueacuteNovember 2024 10:23amLow thyroid stimulating hormone (TSH) levelacuteSeptember 21, 2025 10:23am [facility] Work Phone: 1(324) 226-358706-25-2025 History of Present illness Narrative* Lexie Huang LPN - 05/11/2025 4:00 PM EDT Reason for Appointment: Patient ID: Radha Hines is a 34 y.o. female who presents for Well Women Visit Patient presents today for Annual Exam. MEDICATIONS Current Outpatient Medications Medication Instructions docusate sodium (COLACE) 100 mg, Oral, 2 times daily PRN furosemide (LASIX) 20 mg, Oral, Daily PRN propranolol (INDERAL) 20 mg, Oral, 2 times daily PRN zolpidem (AMBIEN) 5 mg, Oral, Nightly PRN ALLERGIES Allergies Allergen Reactions Ciprofloxacin Other Reaction(s): Unknown Penicillins Other Reaction(s): Unknown, Vomiting Sulfamethoxazole Other Reaction(s): Other: See Comments Trimethoprim Other Reaction(s): Other: See Comments PROBLEMS Active Ambulatory Problems Diagnosis Date Noted Alcoholic cirrhosis of liver without ascites (K70.30) 01/28/2024 Chronic fatigue 01/28/2024 Alcohol use disorder in remission 01/28/2024 FRANKLIN (generalized anxiety disorder) 01/28/2024 Idiopathic urticaria 01/28/2024 Social anxiety disorder 12/01/2024 History of alcohol abuse 12/01/2024 Resolved Ambulatory Problems Diagnosis Date Noted Anxiety 01/28/2024 Wellness examination 01/28/2024 RUQ abdominal pain 05/04/2024 Past Medical History: Diagnosis Date Alcohol abuse Alcoholic cirrhosis of liver with ascites (HCC) Blighted ovum (HHS-HCC) COVID-19 Generalized anxiety disorder with panic attacks Gestational diabetes (HHS-HCC) Headache Hx of being hospitalized Insomnia Otalgia, bilateral HISTORY PAST MEDICAL HISTORY SOCIAL HISTORY Past Medical History: Diagnosis Date Alcohol abuse Alcoholic cirrhosis of liver with ascites (HCC) Blighted ovum (HHS-HCC) COVID-19 x2 - Nov 2021 , Jun 2022 Generalized anxiety disorder with panic attacks Gestational diabetes (HHS-HCC) Headache Hx of being hospitalized liver Insomnia Otalgia, bilateral Social History Tobacco Use Smoking status: Every Day Current packs/day: 0.50 Types: Cigarettes Passive exposure: Current Smokeless tobacco: Never Tobacco comments: 6-10 Vaping Use Vaping status: Never Used Substance Use Topics Alcohol use: Not Currently Comment: caffeine intake: 3 cups per day coffee Drug use: Never FAMILY HISTORY Family History Problem Relation Name Age of Onset Hypertension Mother Breast cancer Maternal Grandmother Throat cancer Maternal Grandfather Diabetes Maternal Grandfather Cancer Paternal Grandmother Aneurysm Paternal Grandfather SURGICAL HISTORY Past Surgical History: Procedure Laterality Date APPENDECTOMY 2004 REVIEW OF SYSTEMS Review of Systems: Review of Systems Constitutional: Negative. HENT: Negative. Eyes: Negative. Respiratory: Negative. Cardiovascular: Negative. Gastrointestinal: Negative. Genitourinary: Positive for menstrual problem. Musculoskeletal: Negative. Skin: Negative. Neurological: Negative. All other systems reviewed and are negative. Hematological: Negative. Endocrine: Negative. Allergic/Immunologic: Negative. OBJECTIVE Objective: Physical Exam Constitutional: Appearance: Normal appearance. She is well-developed. Genitourinary: Vulva normal. Right Adnexa: not tender and no mass present. Left Adnexa: not tender and no mass present. No cervical discharge. Breasts: Breasts are soft. Right: Normal. Left: Normal. HENT: Head: Normocephalic. Nose: Nose normal. Mouth/Throat: Mouth: Mucous membranes are moist. Cardiovascular: Rate and Rhythm: Normal rate and regular rhythm. Pulmonary: Effort: Pulmonary effort is normal. Breath sounds: Normal breath sounds. Abdominal: General: Bowel sounds are normal. There is no distension. Palpations: Abdomen is soft. Tenderness: There is no abdominal tenderness. There is no guarding or rebound. Musculoskeletal: General: No swelling. Normal range of motion. Cervical back: Normal range of motion. Right lower leg: No edema. Left lower leg: No edema. Neurological: General: No focal deficit present. Mental Status: She is alert and oriented to person, place, and time. Skin: General: Skin is warm and dry. Psychiatric: Mood and Affect: Mood normal. Behavior: Behavior normal. Vitals and nursing note reviewed. Exam conducted with a generation mechanic helper present. Vitals: Estimated body mass index is 26.79 kg/m as calculated from the following: Height as of 12/07/24: 5' 1 . Weight as of this encounter: 141 lb 12.8 oz. BP: 108/68 No LMP recorded. ASSESSMENT & PLAN ICD-10-CM 1. Well woman exam with routine gynecological exam Z01.419 Pap Smear HPV DNA probe, amplified 2. Alcoholic cirrhosis, unspecified whether ascites present (HCC) K70.30 US abdomen limited liver 3. Constipation, unspecified constipation type K59.00 docusate sodium (Colace) 100 MG capsule Orders Placed This Encounter Procedures HPV DNA probe, amplified US abdomen limited liver Annual Wellness Exam: Patient presents today for routine annual exam. Patient states she has complaints of AUB. Patients vitals were reviewed and within normal limits. Growth and development is noted to be appropriate for age. Menstrual history is noted to be irregular with concerns reported. Pt given ultrasound to have obtained. Pt has h/o cirrhosis and was given liver ultrasound to have obtained as well, she is seeing Raquel in July for EGD. Pt has complaints of constipation, rx for colace faxed to pharmacy. No mental health concerns was expressed. Pap Smear: Speculum was inserted into the vagina and pap was obtained without difficulty. HPV testing was performed per age guideline. Patient was advised that pap results could take anywhere from 7 to 10 days to receive and our office will reach out to the patient with those once we have them. Patient can also view results via [employer]. I reinforced importance of condom use for STI prevention. Patient declined cultures to be performed with today's visit. Breast Exam: Upon examination, clinical breast exam was noted to be normal. Patient was counseled on breast self-awareness, including the importance of knowing what is normal for her own breasts and promptly reporting any changes such as new lumps, skin dimpling, nipple discharge, or pain. Screening mammogram recommended annually beginning at age 40 or earlier if risk factors are present. Discussed signs and symptoms of breast cancer and when to seek medical attention. Answered all patient questions. Contraceptive Counseling (if applicable): Patient is currently using no control at this time as a form of contraceptive. Patient does not desire control at this time. Follow Up: Patient is to return to our office in one year for annual exam unless needed otherwise. Documented by Lexie Huang LPN on behalf of: Josey Chavez PA-C documented in this encounterGeneral [facility] Community HospitalBijshbkyfy88-16-0469 History of Present illness Narrative* Bobo Trinidad, PMHNP-BC - 01/10/2025 3:00 PM EST Images from the original note were not included. HPI: Radha Hines is a 34 y.o. female with a history of alcohol abuse (sober since 2020), liver cirrhosis, FRANKLIN, and social anxiety. Patient is here today for follow-up. She reports doing well on Propranolol. She states she only takes it when she is going to be around large crowds, which typically happens at work. She states that she is taking no more than 2 pills a day when she does take it. She denies any side effects. She states that she did see her liver specialist recently who told her thatthe Propranolol was okay for her to take and may actually help with the small varices in her esophagus. She continues to see [facility] for counseling on a regular basis. SUBJECTIVE: PAST MEDICAL HISTORY: Past Medical History: Diagnosis Date Alcohol abuse Alcoholic cirrhosis of liver with ascites (CMS/HCC) Blighted ovum COVID-19 x2 - Nov 2021 , Jun 2022 Generalized anxiety disorder with panic attacks (CMS/HCC) Gestational diabetes Headache Hx of being hospitalized liver Insomnia Otalgia, bilateral MEDICATIONS: Current Outpatient Medications Medication Instructions folic acid (FOLVITE) 1 mg, Oral, Daily furosemide (LASIX) 20 mg, Oral, Daily PRN propranolol (INDERAL) 20 mg, Oral, 2 times daily PRN thiamine ((VITAMIN B-1)) 100 mg, Oral, Daily zolpidem (AMBIEN) 5 mg, Oral, Nightly PRN ALLERGIES: Allergies Allergen Reactions Ciprofloxacin Other Reaction(s): Unknown Penicillins Other Reaction(s): Unknown, Vomiting Sulfamethoxazole Other Reaction(s): Other: See Comments Trimethoprim Other Reaction(s): Other: See Comments SURGICAL HISTORY: Past Surgical History: Procedure Laterality Date APPENDECTOMY 2004 FAMILY HISTORY: Family History Problem Relation Name Age of Onset Hypertension Mother Breast cancer Maternal Grandmother Throat cancer Maternal Grandfather Diabetes Maternal Grandfather Cancer Paternal Grandmother Aneurysm Paternal Grandfather SOCIAL HISTORY: Social History Tobacco Use Smoking status: Every Day Current packs/day: 0.50 Types: Cigarettes Passive exposure: Current Smokeless tobacco: Never Tobacco comments: 6-10 Vaping Use Vaping status: Never Used Substance Use Topics Alcohol use: Not Currently Comment: caffeine intake: 3 cups per day coffee Drug use: Never Depression: Not at risk (01/10/2025) PHQ-2 PHQ-2 Score: 0 Patient Care Team: Ed Copeland NP as Nurse Practitioner (Family Medicine) Vicky Gates MD as Referring Physician (Gastroenterology) Nav Guzmán LPC as Multimedia Specialist (Behavioral Health) PSYCHIATRIC REVIEW OF SYMPTOMS AND MENTAL STATUS EXAM ROS: Patient denies fatigue, malaise, night sweats, weight loss, weight gain, cough, SOB, palpitations, chest pain, insomnia, dysphagia, abdominal pain, N/V/D, pruritus, rash, headache, dizziness, seizures, tremors, headache. Appearance Appearance: Normal grooming and hygiene. Appears stated age. Dressed appropriately for weather. Behavior Calm, cooperative, pleasant. Good posture. Psychomotor Activity Intact. No abnormal movements noted. Eye contact Good Speech Normal, clear, regular rate, rhythm and volume Affect Full range. Stable. Appropriate and congruent with mood. Mood Euthymic Thought Process Organized, logical, and goal directed Thought Content: Denies suicidal and homicidal ideation. Perception: Denies auditory or visual hallucinations. No evidence of delusions. Denies derealization and depersonalization. Cognition Alert and attentive during visit Memory Immediate, recent and remote memory intact Insight Good. Acknowledges predominant symptoms of illness and need for treatment Judgement Good. Able to make reasonable life decisions. OBJECTIVE: Visit Vitals BP 116/66 (BP Location: Right arm, Patient Position: Sitting) Pulse 94 Wt 138 lb BMI 26.07 kg/m OB Status Having periods Smoking Status Every Day BSA 1.64 m Lab Results Component Value Date GLU 127 (H) 10/20/2024 CALCIUM 9.1 10/20/2024 NA 140 10/20/2024 K 3.6 10/20/2024 CO2 26.6 10/20/2024 BUN 13.0 10/20/2024 CREATININE 0.80 10/20/2024 Lab Results Component Value Date WBC 9.3 11/25/2022 10/20/24 - CBC, Vitamin D (40.7), Folate, Vitamin B1, Vitamin B12, Iron, TIBC, Ferritin 11/25/22 - TSH (2.129) ASSESSMENT AND PLAN: Impression: Patient with symptoms consistent with FRANKLIN and social anxiety. Discussed evidence based treatment and first-line treatment options which typically include SSRIs. Patient hesitant to take amedication every day for her symptoms. Patient desires to only take medication on an as needed basis to help when symptoms are at high severity. Discussed treatment of Hydroxyzine versus Propranolol for anxiety. Discussed possible side effects of both, and concerns for increased sedation with Hydroxyzine given her liver cirrhosis history. Patient agreeable to try Propranolol and willingness to start counseling for CBT. 01/10/25 update: Patient doing well on current dose of Propranolol. She desires to continue current dose. Assessment/Plan Diagnoses and all orders for this visit: FRANKLIN (generalized anxiety disorder) (CMS/HCC) Social anxiety disorder (CMS/HCC) - propranolol (Inderal) 10 MG tablet; Take 2 tablets (20 mg) by mouth 2 (two) times a day as needed(social anxiety) for up to 30 doses Alcoholic cirrhosis of liver without ascites (K70.30) - furosemide (Lasix) 20 MG tablet; Take 1 tablet (20 mg) by mouth Daily as needed (for swelling) History of alcohol abuse Treatment Plan/Recommendations: - Continue Propranolol to 20 mg twice a day as needed for social anxiety. - Continue counseling for additional mental health support and treatment. - RTC in 6 months. Discussed any medication changes and follow-up plan with patient. Encouraged patient to call office sooner if symptoms worsen or if any questions/concerns arise. Patient was seen Face to Face, Total time spent with patient was 15 minutes, which includes reviewing chart documents, previous notes/records, counseling and discussion with patient and/or coordination of care as described above. documented in this encounterGeneral Leonard Wood Army Community [id number] [facility] [place] [address] [place] [address] Ultrasound Report Signed Patient: Radha Hines MR#: [id number] : 1990 Acct:[id number] Age/Sex: 34 / F ADM Date: 5 Loc: Room: Type: [facility] Attending Dr: Vicky Gates MD Ordering Provider: Vicky Gates MD Date of Service: 12/25/24 US/US liver: K70.31 - Alcoholic cirrhosis of liver with ascites Copies to: Vicky Gates MD~ EXAMINATION TYPE: US liver DATE OF EXAM ORDERED: 12/25/2024 9:39 AM HISTORY: Alcoholic cirrhosis of liver, ascites COMPARISON: 04/25/2022 TECHNIQUE: Realtime imaging limited to the right upper quadrant was performed. FINDINGS: The gallbladder appears within normal limits without evidence of cholelithiasis. The gallbladder wall measures 1 mm in thickness. The common bile duct measures5 mm in diameter. No intrahepatic or extrahepatic biliary dilatation is seen. The liver is normal in echo reflectivity. The liver is lobulated in contour consistent with a history of hepatic cirrhosis. There is hepatopedal flow the main portal vein. Partial visualization of the right kidney reveals no gross hydronephrosis. Partial visualization of the pancreas reveals no abnormality. ? US/US liver IMPRESSION: No evidence of acute cholecystitis. No intrahepatic or extrahepatic biliary ductal dilatation. The liver is lobulated in contour consistent with a history of hepatic cirrhosis. Impression dictated by: Ishmael Nelson M.D.12/25/2024 10:53 AM Dictation Location: RADIO-PC-17 Tech: Ly Leigh Transcribed By: JOLENE 12/25/24 105 Dictated By: Ishmael Nelson II, MD 12/25/24 1047 Signed By: 12/25/24 1053 [facility] Work Phone: [phone]) 800-639401-27-2025 Evaluation note* Author Vicky Gates [facility] CenterAuthoredJanuary 2024 [id number] 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 Laboratory work-up for other etiologies of chronic liver disease including infectious autoimmune or metabolic diseases was done at the [facility]. We will obtain the results of the work-up. MELD of 6. Continue to monitor MELD labs Patient was counseled about 2 g sodium diet Will arrange for ultrasound liver AFP every 6 months for hepatocellular carcinoma screening. EGD on 08/08/2023 showed small esophageal varices, G OV 2 gastric varices and portal hypertensive gastropathy. Next EGD in 07/2025. Patient is already prescribed propranolol by her PCP for anxiety [facility] Work Phone: 1(824) 136-271801-22-2025 History of Present illness Narrative* Bobo Trinidad, REJI - 12/08/2024 3:30 PM EST Images from the original note were not included. Radha Hines is a 34 y.o. female with a history of alcohol abuse (sober since 2020), liver cirrhosis, FRANKLIN, and social anxiety who presents for psychiatric medication follow-up. HPI: Patient was seen for initial intake on 11/08/24. At patient's last visit, she was started on Propranolol for social anxiety. Patient states she developed swelling in knees and ankles over [place]. She saw PCP yesterday who recommended to stop taking Propranolol until her visit today to discuss this further with me. Patient states that when she experiencing bilateral leg swelling shortly after starting medication. She states this lasted for one day and was resolved by the next morning. She states she was putting her daughter's bed together and was on the ground a lot because of this so she isn't sure if this was the cause. She states that she has continued to take the Propranolol once a week during the work week and typically does not take it on the weekends. She states she even took it this morning despite her PCP's recommendations. She denies any other side effects from medication. She feels that she is not as reactive to things and is not as overwhelmed since starting medication. She is inquiring about getting her Propranolol dose increased. She continues to see [facility] for counseling. Her last appointment was on December 01. Medical problems since last visit: She is scheduled to see liver specialist this month. SUBJECTIVE: PAST MEDICAL HISTORY: Past Medical History: Diagnosis Date Alcohol abuse Alcoholic cirrhosis of liver with ascites (CMS/HCC) Blighted ovum COVID-19 x2 - Nov 2021 , Jun 2022 Generalized anxiety disorder with panic attacks (CMS/HCC) Gestational diabetes Headache Hx of being hospitalized liver Insomnia Otalgia, bilateral ALLERGIES: Allergies Allergen Reactions Ciprofloxacin Other Reaction(s): Unknown Penicillins Other Reaction(s): Unknown, Vomiting Sulfamethoxazole Other Reaction(s): Other: See Comments Trimethoprim Other Reaction(s): Other: See Comments SURGICAL HISTORY: Past Surgical History: Procedure Laterality Date APPENDECTOMY 2004 FAMILY HISTORY: Family History Problem Relation Name Age of Onset Hypertension Mother Breast cancer Maternal Grandmother Throat cancer Maternal Grandfather Diabetes Maternal Grandfather Cancer Paternal Grandmother Aneurysm Paternal Grandfather SOCIAL HISTORY: Social History Tobacco Use Smoking status: Every Day Current packs/day: 0.50 Types: Cigarettes Passive exposure: Current Smokeless tobacco: Never Tobacco comments: 6-10 Vaping Use Vaping status: Never Used Substance Use Topics Alcohol use: Not Currently Comment: caffeine intake: 3 cups per day coffee Drug use: Never Depression: Not at risk (12/08/2024) PHQ-2 PHQ-2 Score: 0 Patient Care Team: Ed Copeland NP as Nurse Practitioner (Family Medicine) Vicky Gates MD as Referring Physician (Gastroenterology) PSYCHIATRIC REVIEW OF SYMPTOMS AND MENTAL STATUS EXAM ROS: Patient denies fatigue, malaise, night sweats, weight loss, weight gain, cough, SOB, palpitations, chest pain, insomnia, dysphagia, abdominal pain, N/V/D, pruritus, rash, headache, dizziness, seizures, tremors, headache. Appearance Appearance: Casual dress, normal grooming and hygiene Behavior Cooperative, conversant, engaged, and with good eye contact. Speech Normal, clear, regular rate, rhythm and volume Affect full affect appropriate with mood Mood Anxious Thought Process Organized and Clear Thought Content: Denies suicidal and homicidal ideation. Perception: Denies visual, auditory, and tactile hallucinations. Denies derealization and depersonalization. Orientation Appropriate to age Memory/Concentration Short term intact and manager intermediate intact Insight/Judgement Fair OBJECTIVE: Visit Vitals BP 118/72 (BP Location: Right arm, Patient Position: Sitting, BP Cuff Size: Adult) Pulse 65 Wt 142 lb LMP 11/08/2024 BMI 26.83 kg/m OB Status Having periods Smoking Status Every Day BSA 1.66 m Lab Results Component Value Date GLU 127 (H) 10/20/2024 CALCIUM 9.1 10/20/2024 NA 140 10/20/2024 K 3.6 10/20/2024 CO2 26.6 10/20/2024 BUN 13.0 10/20/2024 CREATININE 0.80 10/20/2024 Lab Results Component Value Date WBC 9.3 11/25/2022 10/20/24 - CBC, Vitamin D (40.7), Folate, Vitamin B1, Vitamin B12, Iron, TIBC, Ferritin 11/25/22 - TSH (2.129) ASSESSMENT AND PLAN: Impression: Patient with symptoms consistent with FRANKLIN and social anxiety. Discussed evidence based treatment and first-line treatment options which typically include SSRIs. Patient hesitant to take amedication every day for her symptoms. Patient desires to only take medication on an as needed basis to help when symptoms are at high severity. Discussed treatment of Hydroxyzine versus Propranolol for anxiety. Discussed possible side effects of both, and concerns for increased sedation with Hydroxyzine given her liver cirrhosis history. Patient agreeable to try Propranolol and willingness to start counseling for CBT. 12/08/24 update: Patient reports improvement in anxiety with use of Propranolol. Low suspicion for her leg swelling being related to medication as this occurred for less than 24 hours and has not recurred since continuing medication. Encouraged her to let liver specialist know of this leg swelling at her appointment next week. Patient desires to increase dose of Propranolol for further reduction in anxiety. Discussed possible side effects of medication and encouraged her to call the office if she has any questions/concerns. Patient verbalized understanding. Assessment/Plan Diagnoses and all orders for this visit: FRANKLIN (generalized anxiety disorder) (CMS/HCC) Social anxiety disorder (CMS/HCC) - propranolol (Inderal) 10 MG tablet; Take 2 tablets (20 mg) by mouth 2 (two) times a day as needed(social anxiety) Alcoholic cirrhosis of liver without ascites (K70.30) History of alcohol abuse Treatment Plan/Recommendations: - Increase Propranolol to 20 mg twice a day as needed for social anxiety. - Continue counseling for additional mental health support and treatment. - Continue to follow with liver specialist regarding history of cirrhosis. - RTC in 1 month to re-evaluate symptoms. Discussed follow-up plan with patient, and encouraged patient to call office sooner if symptoms worsen or if any questions/concerns arise. Patient was seen Face to Face, Total time spent with patient was 20 minutes, which includes reviewing chart documents, previous notes/records, counseling and discussion with patient and/or coordination of care as described above. documented in this encounterGeneral Leonard Wood Army Community [id number] History of Present illness Narrative* Ed Copeland NP - 12/07/2024 3:30 PM EST Images from the original note were not included. Subjective Patient ID: Radha Hines is a 34 y.o. female who presents for Follow-up. HPI Specialists: Dr. Fuentes- FALGUNI FRANKLIN: Was referred to . Now taking propanolol 10mg TID for anxiety. Is now doing CBT. States over [place] she had swelling in knees and ankles. [...] at this time. Discuss further options with Bobo Trinidad -MEI tomorrow at her OV. Is following with Dr. Aguila in [place] for cirrhosis on 12/13/2024. Review of Systems Constitutional: Negative for fatigue. Respiratory: Negative for chest tightness, shortness of breath and wheezing. Genitourinary: Negative for difficulty urinating, dyspareunia, dysuria, flank pain, frequency, hematuria, pelvic pain, urgency, vaginal bleeding, vaginal discharge and vaginal pain. Neurological: Negative for dizziness and light-headedness. Objective Physical Exam Constitutional: Appearance: Normal appearance. HENT: Head: Normocephalic. Right Ear: External ear normal. Left Ear: External ear normal. Nose: Nose normal. Mouth/Throat: Mouth: Mucous membranes are moist. Pharynx: Oropharynx is clear. Eyes: Pupils: Pupils are equal, round, and reactive to light. Cardiovascular: Rate and Rhythm: Normal rate and regular rhythm. Pulses: Normal pulses. Pulmonary: Effort: Pulmonary effort is normal. Breath sounds: Normal breath sounds. Abdominal: General: Abdomen is flat. Bowel sounds are normal. Palpations: Abdomen is soft. Musculoskeletal: General: Normal range of motion. Cervical back: Normal range of motion. Skin: General: Skin is warm. Capillary Refill: Capillary refill takes less than 2 seconds. Neurological: Mental Status: She is alert and oriented to person, place, and time. Psychiatric: Mood and Affect: Mood normal. Behavior: Behavior normal. Assessment/Plan Problem List Items Addressed This Visit Alcohol use disorder in remission Relevant Medications thiamine (,Vitamin B-1,) 100 MG tablet FRANKLIN (generalized anxiety disorder) (CMS/HCC) - Primary Was referred to . Now taking propanolol 10mg TID for anxiety. Is now doing CBT. States over [place] she had swelling in knees and ankles. [...] at this time. Discuss further options with Bobo Trinidad -MEI tomorrow at her OV. Is following with Dr. Aguila in [place] for cirrhosis on 12/13/2024. * Ed Copeland NP - 12/07/2024 3:23 PM ESTAssociated Problem(s): FRANKLIN (generalized anxiety disorder) (CMS/HCC) Was referred to . Now taking propanolol 10mg TID for anxiety. Is now doing CBT. States over [place] she had swelling in knees and ankles. [...] at this time. Discuss further options with Bobo Trinidad -PMHNP tomorrow at her OV. Is following with Dr. Aguila in [place] for cirrhosis on 12/13/2024. documented in this encounterGeneral Leonard Wood Army Community [id number] History of Present illness Narrative* Bobo Trinidad NP - 11/08/2024 10:00 AM EST Images from the original note were not included. Radha Hines is a 34 y.o. female with a history of alcohol abuse (sober since 2020) and liver cirrhosis who presents as a new patient for psychiatric evaluation and medication management. She was referred by PCP, Ed Copeland HPI: Reason for visit: Radha Hines has been experiencing problems with anxiety, especially in socialsituations for the past few years. She reports wanting to discuss medication options to help treat her anxiety. Developmental History: Patient was raised in [place] by biological parents up until 1st/2nd grade.She states parents and then she moved to [place] with her mother. She states she would travel up to [place] in the stover to visit her father. Overall, she reports having a good childhood. Her father did remarry for a short period of time before he got again. She ended up moving back to [facility] after graduating high school. She obtained her associates degree, and then moved to [facility] to get her bachelor's degree. She states she started drinking alcohol heavily when she moved to [facility]. She ended up moving to [place] in 2013 to help her father who owns some businesses in [place]. Past Psychiatric History: Previous diagnoses: None Previous psychiatric treatment: Was in counseling over a year ago but stopped going because she didn't feel like she connected with therapist. Previous medications: Effexor - reports bad withdrawals Wellbutrin - cannot recall how it made her feel Ativan, Xanax Current medications: Ambien 5 mg at night - Reports taking this during the work week only. Previous psychiatric hospitalizations: Denies Previous suicide attempts or self harm: Denies Education: Graduated high school in [place]. Received associates degree in [employer] and bachelor's degree in [employer] [facility]. Legal issues: Had a DUI in her past PHQ-9 score: 8 FRANKLIN-7 score: 12 Substance Abuse History: Recreational drugs: Denies Use of alcohol: Reports drinking heavily when she was living in [facility]. States she was diagnosed with liver cirrhosis at 29. Has been sober since 2020. Use of caffeine: 3 cups of coffee a day Tobacco or vaping use: Smokes 0.5 ppd of cigarettes Patient Care Team: Ed Copeland NP as Nurse Practitioner (Family Medicine) Vicky Gates MD as Referring Physician (Gastroenterology) SUBJECTIVE: PAST MEDICAL HISTORY: Past Medical History: Diagnosis Date Acute otitis media Alcohol abuse Alcoholic cirrhosis of liver with ascites (CMS/HCC) Blighted ovum COVID-19 x2 - Nov 2021 , Jun 2022 Generalized anxiety disorder with panic attacks (CMS/HCC) Gestational diabetes Headache Hx of being hospitalized liver Insomnia Liver disease Otalgia, bilateral Patient denies any history of heart problems, head trauma, seizures, stroke/TIA, infectious disorders (e.g., meningitis), lung disorders, tics/tourette s, eating disorders. MEDICATIONS: Current Outpatient Medications Medication Instructions folic acid (FOLVITE) 1 mg, Oral, Daily furosemide (LASIX) 20 mg, Oral, Daily propranolol (INDERAL) 10 mg, Oral, 3 times daily PRN thiamine ((VITAMIN B-1)) 100 mg, Oral, Daily zolpidem (AMBIEN) 5 mg, Oral, Nightly PRN ALLERGIES: Allergies Allergen Reactions Ciprofloxacin Other Reaction(s): Unknown Penicillins Other Reaction(s): Unknown, Vomiting Sulfamethoxazole Other Reaction(s): Other: See Comments Trimethoprim Other Reaction(s): Other: See Comments SURGICAL HISTORY: Past Surgical History: Procedure Laterality Date APPENDECTOMY 2004 FAMILY HISTORY: Family History Problem Relation Name Age of Onset Hypertension Mother Breast cancer Maternal Grandmother Throat cancer Maternal Grandfather Diabetes Maternal Grandfather Cancer Paternal Grandmother Aneurysm Paternal Grandfather SOCIAL HISTORY: Social History Tobacco Use Smoking status: Every Day Current packs/day: 0.50 Types: Cigarettes Passive exposure: Current Smokeless tobacco: Never Tobacco comments: 6-10 Vaping Use Vaping status: Never Used Substance Use Topics Alcohol use: Not Currently Comment: caffeine intake: 3 cups per day coffee Drug use: Never Depression: Not at risk (05/04/2024) PHQ-2 PHQ-2 Score: 0 Relationship/marital status: Was previously for 5 years. Currently lives with father's child. States that they met many years ago at work. Reports that their relationship was well for quite some time. She reports lalit relationship for the past 2-3 years. She states she feels like he holds her past against her a lot of times. Children: Has a 7 year old daughter Occupation: Works at [employer] since 2015 in [place]. PSYCHIATRIC REVIEW OF SYMPTOMS AND MENTAL STATUS EXAM Psychiatric Review Of Systems: Sleep: States she is sleeping better now that she has returned back to day shift a couple of weeks ago. Appetite changes: Denies. Weight changes: Admits to not being happy about a 10 lb weight gain that has occurred over the pastyear. Energy: Admits to low energy. Interest/pleasure/anhedonia: Admits Concentration: Admits to problems focusing Agitation/Irritability: Admits Impulsivity: Patient denies any problems with extreme impulsivity without regard for consequences. Grandiosity: Patient denies any feelings of inflated self esteem or self image. Flight of ideas: Patient denies. Anxiety/panic: Admits to a lot of social anxiety, which has increased in severity since she stoppeddrinking. Reports some panic attacks in her lifetime. Guilty/hopeless: Admits to feeling guilty about her past. Self-injurious behavior/risky behavior: Denies Suicidal ideation: Denies Suicidal plan: Denies Any current drug use?: Denies Any current alcohol use?: Denies Appearance Appearance: Casual dress, normal grooming and hygiene Behavior Cooperative, conversant, engaged, and with good eye contact. Speech Normal, clear, regular rate, rhythm and volume Affect Sad/tearful Mood Depressed and Anxious Thought Process Organized and Clear Thought Content: Denies suicidal and homicidal ideation. Perception: Denies visual, auditory, and tactile hallucinations. Denies derealization and depersonalization. Orientation Appropriate to age Memory/Concentration Short term intact and senior living intact Insight/Judgement Fair OBJECTIVE: Visit Vitals BP 124/84 (BP Location: Right arm, Patient Position: Sitting) Pulse 74 Wt 139 lb LMP 11/08/2024 BMI 26.26 kg/m OB Status Having periods Smoking Status Every Day BSA 1.65 m Lab results: Lab Results Component Value Date GLU 127 (H) 10/20/2024 CALCIUM 9.1 10/20/2024 NA 140 10/20/2024 K 3.6 10/20/2024 CO2 26.6 10/20/2024 BUN 13.0 10/20/2024 CREATININE 0.80 10/20/2024 10/20/24 - CBC, Vitamin D (40.7), Folate, Vitamin B1, Vitamin B12, Iron, TIBC, Ferritin 11/25/22 - TSH (2.129) ASSESSMENT AND PLAN: Impression: Patient with symptoms consistent with FRANKLIN and social anxiety. Discussed evidence based treatment and first-line treatment options which typically include SSRIs. Patient hesitant to take amedication every day for her symptoms. Patient desires to only take medication on an as needed basis to help when symptoms are at high severity. Discussed treatment of Hydroxyzine versus Propranolol for anxiety. Discussed possible side effects of both, and concerns for increased sedation with Hydroxyzine given her liver cirrhosis history. Patient agreeable to try Propranolol and willingness to start counseling for CBT. 1) Generalized Anxiety - As evidenced by excessive worry and anxiety occurring more days than not for at least 6 months about a number of events or activities; individual finds it difficult to control worry; anxiety and worry, feeling on edge, being easily fatigued, difficulty concentrating and mind going blank, irritability, muscle tension, and sleep disturbance. 2) Social Anxiety - As evidenced by fear or anxiety about one or more social situations in which individual is exposed to possible scrutiny by others. Individual fears that they will act in a way or show anxiety symptoms that will be negatively evaluated. Social situations almost always provoke fear or anxiety. Patient tends to avoid situations with intense fear or anxiety. Fear and anxiety have lasted for more than 6 months. Fear, anxiety and avoidance causes clinical distress. [facility] liver specialist november appt. Assessment/Plan Diagnoses and all orders for this visit: FRANKLIN (generalized anxiety disorder) (CMS/HCC) - Ambulatory referral to Behavioral Health - propranolol (Inderal) 10 MG tablet; Take 1 tablet (10 mg) by mouth 3 (three) times a day as needed (social anxiety) Social anxiety disorder (CMS/HCC) History of substance use Comments: Alcohol abuse Alcoholic cirrhosis of liver without ascites (K70.30) Treatment Plan/Recommendations: - Start Propranolol 10 mg three times a day as needed for social anxiety. - Encouraged counseling for additional mental health support and treatment. - Continue to follow with liver specialist regarding history of cirrhosis. - RTC in 4 weeks to re-evaluate symptoms. Discussed follow-up plan with patient, and encouraged patient to call office sooner if symptoms worsen or if any questions/concerns arise. Reviewed the risks, benefits, and potential side effects from the medications. The patient agrees the benefits outweigh the risks and agrees to treat their symptoms. Discussed treatment plan, the patient was allowed time to ask questions, and the patient agreed with the plan moving forward. Instructed patient to call office with any complications or potential side effects. Patient instructed to present to the local ER or call Suicide Hotline (278) for any psychosis, suicidal or homicidal ideation, or with any risk of harm to self or others. Patient was seen Face to Face, Total time spent with patient was 60 minutes, which includes reviewing chart documents, previous notes/records, counseling and discussion with patient and/or coordination of care as described above. documented in this encounterGeneral Leonard Wood Army Community [id number] Telephone encounter Note* Telephone Encounter - Melonie Madden MA - 10/25/2024 9:15 AM EST Result Communication Resulted Orders ALL CBC WITH AUTO DIFF Result Value Ref Range TBH WBC 7.6 4.0 - 11.0 10 3/uL TBH RBC 4.14 (L) 4.20 - 5.40 10 6/uL TBH HGB 12.8 12.0 - 16.0 g/dL TBH HCT 38.6 36.0 - 48.0 % TBH MCV 93.2 81.0 - 99.0 fL TBH MCH 30.9 26.7 - 34.0 pg TBH MCHC 33.2 29.9 - 35.2 g/dL TBH RDW 12.6 11.0 - 15.0 % TBH PLT 153 150 - 450 10 3/uL TBH MPV 9.1 (L) 9.5 - 13.5 fL NEUTROPHILS PERCENT AUTO 53.3 43.0 - 75.0 % LYMPHOCYTES PERCENT AUTO 37.9 20.5 - 60.0 % MONOCYTES PERCENT AUTO 5.4 1.7 - 12.0 % TBH EO % 2.8 0.9 - 7.0 % BASOPHILS PERCENT AUTO 0.3 0.2 - 2.0 % IMMATURE GRANULOCYTES PCT AUTO 0.3 0.0 - 0.5 % NEUTROPHILS ABSOLUTE AUTO 4.1 1.4 - 6.5 10 3/uL LYMPHOCYTES ABSOLUTE AUTO 2.9 1.2 - 3.8 10 3/uL MONOCYTES ABSOLUTE AUTO 0.4 0.3 - 0.8 10 3/uL TBH EO # 0.2 0.0 - 0.7 10 3/uL BASOPHILS ABSOLUTE AUTO 0.0 0.0 - 0.1 10 3/uL IMMATURE GRANULOCYTES ABS AUTO 0.02 0.00 - 0.03 10 3/uL [facility] CMP (CMP) (FOR [facility]OTE [facility] USE) Result Value Ref Range SODIUM 140 136 - 145 mmol/L POTASSIUM 3.6 3.5 - 5.1 mmol/L CHLORIDE 104 98 - 107 mmol/L CARBON DIOXIDE 26.6 21.0 - 32.0 mmol/L ANION GAP 13.0 GLUCOSE 127 (H) 74 - 106 mg/dL BLOOD UREA NITROGEN 13.0 7.0 - 18.0 mg/dL CREATININE 0.80 0.55 - 1.02 mg/dL TB EGFR-AF SW[place] >60 >=60 mL/min/1.73m 2 TB EGFR-NON AF [place] >60 >=60 mL/min/1.73m 2 BUN CREATININE RATIO 16.2 CALCIUM 9.1 8.5 - 10.1 mg/dL BILIRUBIN TOTAL 0.5 0.2 - 1.0 mg/dL ASPARTATE AMINO TRANSFERASE 19 15 - 37 U/L ALANINE AMINOTRANSFERASE 27 14 - 59 U/L ALKALINE PHOSPHATASE 46 46 - 116 U/L TOTAL PROTEIN 7.0 6.4 - 8.2 g/dL ALBUMIN LEVEL 3.7 3.4 - 5.0 g/dL GLOBULIN 3.3 g/dL ALBUMIN GLOBULIN RATIO 1.1 [facility] VITAMIN D 25 OH Result Value Ref Range VITAMIN D 40.7 ng/mL Comment: <20 ng/mL Vit D deficient 20-<30 ng/mL Vit D insufficient 30-100 ng/mL Vit D sufficient >100 ng/mL Potential Toxicity 9:16 AM Results were successfully communicated with the patient and they acknowledged their understanding. Would like anemia panel sent to [facility] [id number] Telephone encounter Note* Telephone Encounter - Melonie Madden MA - 10/25/2024 9:15 AM EST ----- Message from [employer] sent at 10/21/2024 11:49 AM EST ----- Labs all look good, except slight anemia. We csn do an anemia workup if she would like. [facility] [id number] Miscellaneous Notes* Telephone Encounter - Melonie Madden MA - 10/25/2024 9:15 AM EST Result Communication Resulted Orders ALL CBC WITH AUTO DIFF Result Value Ref Range TBH WBC 7.6 4.0 - 11.0 10 3/uL TBH RBC 4.14 (L) 4.20 - 5.40 10 6/uL TBH HGB 12.8 12.0 - 16.0 g/dL TBH HCT 38.6 36.0 - 48.0 % TB MCV 93.2 81.0 - 99.0 fL TBH MCH 30.9 26.7 - 34.0 pg TBH MCHC 33.2 29.9 - 35.2 g/dL TBH RDW 12.6 11.0 - 15.0 % TBH PLT 153 150 - 450 10 3/uL TBH MPV 9.1 (L) 9.5 - 13.5 fL NEUTROPHILS PERCENT AUTO 53.3 43.0 - 75.0 % LYMPHOCYTES PERCENT AUTO 37.9 20.5 - 60.0 % MONOCYTES PERCENT AUTO 5.4 1.7 - 12.0 % TBH EO % 2.8 0.9 - 7.0 % BASOPHILS PERCENT AUTO 0.3 0.2 - 2.0 % IMMATURE GRANULOCYTES PCT AUTO 0.3 0.0 - 0.5 % NEUTROPHILS ABSOLUTE AUTO 4.1 1.4 - 6.5 10 3/uL LYMPHOCYTES ABSOLUTE AUTO 2.9 1.2 - 3.8 10 3/uL MONOCYTES ABSOLUTE AUTO 0.4 0.3 - 0.8 10 3/uL [facility] EO # 0.2 0.0 - 0.7 10 3/uL BASOPHILS ABSOLUTE AUTO 0.0 0.0 - 0.1 10 3/uL IMMATURE GRANULOCYTES ABS AUTO 0.02 0.00 - 0.03 10 3/uL [facility] CMP (CMP) (FOR [facility] USE) Result Value Ref Range SODIUM 140 136 - 145 mmol/L POTASSIUM 3.6 3.5 - 5.1 mmol/L CHLORIDE 104 98 - 107 mmol/L CARBON DIOXIDE 26.6 21.0 - 32.0 mmol/L ANION GAP 13.0 GLUCOSE 127 (H) 74 - 106 mg/dL BLOOD UREA NITROGEN 13.0 7.0 - 18.0 mg/dL CREATININE 0.80 0.55 - 1.02 mg/dL [facility] EGFR-AF [place] >60 >=60 mL/min/1.73m 2 [facility] EGFR-NON AF [place] >60 >=60 mL/min/1.73m 2 BUN CREATININE RATIO 16.2 CALCIUM 9.1 8.5 - 10.1 mg/dL BILIRUBIN TOTAL 0.5 0.2 - 1.0 mg/dL ASPARTATE AMINO TRANSFERASE 19 15 - 37 U/L ALANINE AMINOTRANSFERASE 27 14 - 59 U/L ALKALINE PHOSPHATASE 46 46 - 116 U/L TOTAL PROTEIN 7.0 6.4 - 8.2 g/dL ALBUMIN LEVEL 3.7 3.4 - 5.0 g/dL GLOBULIN 3.3 g/dL ALBUMIN GLOBULIN RATIO 1.1 [facility] VITAMIN D 25 OH Result Value Ref Range VITAMIN D 40.7 ng/mL Comment: <20 ng/mL Vit D deficient 20-<30 ng/mL Vit D insufficient 30-100 ng/mL Vit D sufficient >100 ng/mL Potential Toxicity 9:16 AM Results were successfully communicated with the patient and they acknowledged their understanding. Would like anemia panel sent to [facility] * Telephone Encounter - Melonie Madden MA - 10/25/2024 9:15 AM EST ----- Message from Ed Copeland sent at 10/21/2024 11:49 AM EST ----- Labs all look good, except slight anemia. We csn do an anemia workup if she would like. documented in this encounterGeneral Leonard Wood Army Community [id number] History of Present illness Narrative* Ed Copeland NP - 09/06/2024 5:19 PM EDTAssociated Problem(s): FRANKLIN (generalized anxiety disorder) ([facility]) Pt reports she was previously taking Effexor, benzodiazepines and hydroxyzine. She is not on any medications currently. She feels her anxiety is worsening but is very hesitant to initiate any new medications due to the effects she had when coming off of Effexor. Denies SI/HI. Agreeable to seeing [facility] therapy and possible medication management if necessary. Referral sent to . * Ed Copeland NP - 09/06/2024 9:00 AM EDT Images from the original note were not included. Subjective Patient ID: Radha Hines is a 34 y.o. female who presents for Follow-up. HPI Specialists: Dr. Tara MONTES DE OCA FRANKLIN: Pt reports she was previously taking Effexor, benzodiazepines and hydroxyzine. She is not on any medications currently. She feels her anxiety is worsening but is very hesitant to initiate any new medications due to the effects she had when coming off of Effexor. Denies SI/HI. Agreeable to seeing [facility] therapy and possible medication management if necessary. Referral sent to . Review of Systems Constitutional: Negative for activity change, appetite change, chills, diaphoresis, fatigue, fever and unexpected weight change. HENT: Negative for congestion, ear pain, rhinorrhea, sinus pressure, sinus pain, sneezing, sore throat, trouble swallowing and voice change. Eyes: Negative for visual disturbance. Respiratory: Negative for cough, chest tightness, shortness of breath and wheezing. Cardiovascular: Negative for chest pain, palpitations and leg swelling. Gastrointestinal: Negative for abdominal distention, abdominal pain, blood in stool, constipation, diarrhea and vomiting. Genitourinary: Negative for decreased urine volume, dysuria, flank pain, frequency, hematuria and urgency. Musculoskeletal: Negative for arthralgias, gait problem, joint swelling and myalgias. Skin: Negative for rash. Neurological: Negative for dizziness, tremors, syncope, weakness, light- headedness and headaches. Psychiatric/Behavioral: Negative for decreased concentration and suicidal ideas. The patient is nervous/anxious. Hematological: Does not bruise/bleed easily. Endocrine: Negative for cold intolerance, heat intolerance, polydipsia, polyphagia and polyuria. Objective Physical Exam Vitals reviewed. Constitutional: Appearance: Normal appearance. HENT: Head: Normocephalic and atraumatic. Right Ear: Tympanic membrane normal. Left Ear: Tympanic membrane normal. Nose: Nose normal. Mouth/Throat: Mouth: Mucous membranes are moist. Pharynx: Oropharynx is clear. Eyes: Pupils: Pupils are equal, round, and reactive to light. Cardiovascular: Rate and Rhythm: Normal rate and regular rhythm. Pulses: Normal pulses. Heart sounds: Normal heart sounds. Pulmonary: Effort: Pulmonary effort is normal. Breath sounds: Normal breath sounds. Abdominal: General: Abdomen is flat. Bowel sounds are normal. Palpations: Abdomen is soft. Musculoskeletal: General: Normal range of motion. Cervical back: Normal range of motion. Skin: General: Skin is warm and dry. Capillary Refill: Capillary refill takes less than 2 seconds. Neurological: General: No focal deficit present. Mental Status: She is alert and oriented to person, place, and time. Psychiatric: Mood and Affect: Mood normal. Behavior: Behavior normal. Assessment/Plan Problem List Items Addressed This Visit Alcoholic cirrhosis of liver without ascites (K70.30) Relevant Medications furosemide (Lasix) 20 MG tablet Chronic fatigue Relevant Orders Comprehensive metabolic panel CBC and differential Vitamin B1 Folate RBC Vitamin D 25 hydroxy Alcohol use disorder in remission Relevant Medications folic acid (Folvite) 1 MG tablet thiamine (,Vitamin B-1,) 100 MG tablet Other Relevant Orders Comprehensive metabolic panel CBC and differential Vitamin B1 Folate RBC Vitamin D 25 hydroxy FRANKLIN (generalized anxiety disorder) (CMS/HCC) - Primary Pt reports she was previously taking Effexor, benzodiazepines and hydroxyzine. She is not on any medications currently. She feels her anxiety is worsening but is very hesitant to initiate any new medications due to the effects she had when coming off of Effexor. Denies SI/HI. Agreeable to seeing for therapy and possible medication management if necessary. Referral sent to . Relevant Orders Ambulatory referral to Behavioral Health Other Visit Diagnoses Psychophysiological insomnia Relevant Medications zolpidem (Ambien) 5 MG tablet documented in this encounterGeneral Leonard Wood Army Community [id number] Instructions* Patient Instructions* Ed Copeland NP - 09/06/2024 9:00 AM EDT Have lab work completed. Not fasting. Referral sent to [facility]- they will call you. If you don't hear from them in 2 weeks, call my office! documented in this encounterGeneral Leonard Wood Army Community [id number] [facility]* Encounter Date Diagnosis Assessment Notes Treatment Notes Treatment Clinical Notes Jun, Alcoholic cirrhosis of liver wit h ascites (ICD-10 - K70.31) Jun,Right upper quadrant abdominal pain (ICD-10 - R10.11) Jun,Other ascites (ICD-10 - R18.8) [facility] Other 07-31-2023 Evaluation note* Encounter Date Diagnosis Assessment Notes Treatment Notes Treatment Clinical Notes May, Right foot pain (ICD-10 - M79.67 1) Discussed with patient no acute fracture or [...] right foot compared to the left foot. [facility] Other 03-04-2023 Evaluation note* Encounter Date Diagnosis Assessment Notes Treatment Notes Treatment Clinical Notes Jan, Sore throat (ICD-10 - J02.9) Jan,Viral upper respiratory infection (ICD-10 - J06.9)Viral upper respiratory infection: adult home care material was printed Drink plenty fluids, get plenty of rest. Take the Medrol Dosepak as prescribed until gone. Take ibuprofen as needed for pain. Follow-up with your family physician if no improvement in 2 to 3 days. Jan,ommunicable disease contact (ICD-10 - Z20.9) [facility] Other 12-08-2022 Evaluation note* Encounter Date Diagnosis Assessment Notes Treatment Notes Treatment Clinical Notes Oct, Sore throat (ICD-10 - J02.9) Oct,cute otitis media with effusion of both ears [...] understanding and is agreeable to treatment plan [facility] Other 06-22-2022 Evaluation note* Encounter Date Diagnosis Assessment Notes Treatment Notes Treatment Clinical Notes Apr, Abdominal pain (ICD-10 - R10.9) [facility] Other 05-31-2022 Evaluation note* Encounter Date Diagnosis Assessment Notes Treatment Notes Treatment Clinical Notes March, Alcoholic cirrhosis of liver wit h ascites (ICD-10 - K70.31) March,bnormal ultrasound (ICD-10 - R93.89)CT ABD/ PELVIS W/ CONTRAST March,bdominal pain (ICD-10 - R10.9)START TRIAL OF LEVSIN S/L BID OBTAIN LABS AND LIVER US FROM [facility] CT ABD/ PELVIS W/ AND W/0 CONTRAST TRIPHASIC ATTN LIVER [facility] Other 02-07-2022 Evaluation note* Encounter Date Diagnosis Assessment Notes Treatment Notes Treatment Clinical Notes Dec, Alcoholic cirrhosis of liver wit h ascites (ICD-10 - K70.31) [facility] Other 01-28-2022 Evaluation note* Encounter Date Diagnosis Assessment Notes Treatment Notes Treatment Clinical Notes Nov, Alcoholic cirrhosis of liver wit h ascites (ICD-10 - K70.31) [facility] Other 01-10-2022 NoteHNO ID: [id number] Author: Vicky Gates MD Service: ? 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 3. (more content not included)...[facility]10-05-2021 Evaluation note* Encounter Date Diagnosis Assessment Notes Treatment Notes Treatment Clinical Notes Aug, Alcoholic cirrhosis of liver wit h ascites (ICD-10 - K70.31) Cirrhosis home care material was printed CONTINUE TO AVOID ALCOHOL Aug,bdominal pain (ICD-10 - R10.9) [facility] Other 09-29-2021 Evaluation note* Encounter Date Diagnosis Assessment Notes Treatment Notes Treatment Clinical Notes Jul, Contact with and (cabral spected) exposure to other viral communicable diseases (ICD-10 - Z20.828) Jul,Viral upper respiratory illness (ICD-10 - J06.9) Viral upper respiratory infection: adult home care material was printed Jul,Other Additional time spent conducting pre-visit phone call, screening for symptoms, instructions on social distancing, application and removal of PPE, and cleaning of examination room, equipment and supplies was preformed. Patient education given for testing methodology and results. Patient care instructions given in writting by [facility] document. [facility] Other 09-24-2021 NoteHNO ID: [id number] Author: Ulices Clemons MD Service: ? Author Type: Physician Type: [...] hypertension. 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 Patient presented to [facility] at beginning of May for RUE ecchymosis. She was noted to have elevated LFTs and advised to stop drinking alcohol. She established care with PCP Elen Deshpande MD who instructed her to go to [facility] ER for jaundice and RUQ pain. Upon admit to [facility] on 06/08/2021, labs revealed a significant elevation [...] Neuro: Gait normal. Sensation grossly intact. IMAGING: [facility]) 06/08/2021 CT A/P (Images Uploaded/Report Scanned) 06/11/2021 [...] including abdominal pain, asci (more content not included)...[facility] centerEvaluation noteNo InformationNort [employer] Other Evaluation noteNo assessment information available [facility] Work Phone: Evaluation note* Diagnosis Onset Date Resolution Status Sore throat noneactive [facility] Work Phone: Evaluation note* Diagnosis Alcohol use disorder in remission- Primary [facility] encounter [facility] Diagnosis Alcohol use disorder in remission- Primary Alcoholic cirrhosis of liver without ascites (K70.30) Idiopathic urticaria FRANKLIN (generalized anxiety disorder) ([facility]/HCC) Generalized anxiety disorder Chronic fatigue Other malaise and fatigue Wellness examination Alcoholic cirrhosis of liver without ascites (K70.30)- Primary FRANKLIN (generalized anxiety disorder) (CMS/HCC) Generalized anxiety disorder RUQ abdominal pain Abdominal pain, right upper quadrant FRANKLIN (generalized anxiety disorder) (CMS/HCC)- Primary Generalized anxiety disorder Alcohol use disorder in remission Alcoholic cirrhosis of liver without ascites (K70.30) Chronic fatigue Other malaise and fatigue Psychophysiological insomnia Persistent disorder of initiating or maintaining sleep documented [facility] this encounter [facility]* Diagnosis Alcohol use disorder in remission- Primary Alcoholic cirrhosis of liver without ascites (K70.30) Idiopathic urticaria FRANKLIN (generalized anxiety disorder) (CMS/HCC) Generalized anxiety disorder Chronic fatigue Other malaise and fatigue Wellness examination Alcoholic cirrhosis of liver without ascites (K70.30)- Primary FRANKLIN (generalized anxiety disorder) (CMS/HCC) Generalized anxiety disorder RUQ abdominal pain Abdominal pain, right upper quadrant FRANKLIN (generalized anxiety disorder) (CMS/HCC)- Primary Generalized anxiety disorder Alcohol use disorder in remission Alcoholic cirrhosis of liver without ascites (K70.30) Chronic fatigue Other malaise and fatigue Psychophysiological insomnia Persistent disorder of initiating or maintaining sleep Anemia, unspecified type- Primary documented [facility] this encounter [facility]* Diagnosis Psychophysiological insomnia Persistent disorder of initiating or maintaining sleep documented [facility] this encounter [facility]* Diagnosis Alcohol use disorder in remission- Primary Alcoholic cirrhosis of liver without ascites (K70.30) Idiopathic urticaria FRANKLIN (generalized anxiety disorder) (CMS/HCC) Generalized anxiety disorder Chronic fatigue Other malaise and fatigue Wellness examination Alcoholic cirrhosis of liver without ascites (K70.30)- Primary FRANKLIN (generalized anxiety disorder) (CMS/HCC) Generalized anxiety disorder RUQ abdominal pain Abdominal pain, right upper quadrant FRANKLIN (generalized anxiety disorder) (CMS/HCC)- Primary Generalized anxiety disorder Alcohol use disorder in remission Alcoholic cirrhosis of liver without ascites (K70.30) Chronic fatigue Other malaise and fatigue Psychophysiological insomnia Persistent disorder of initiating or maintaining sleep FRANKLIN (generalized anxiety disorder) (CMS/HCC) Generalized anxiety disorder Social anxiety disorder (CMS/HCC) Social phobia History of substance use Alcoholic cirrhosis of liver without ascites (K70.30) documented [facility] encounter [facility]* Diagnosis Alcohol use disorder in remission- Primary Alcoholic cirrhosis of liver without ascites (K70.30) Idiopathic urticaria FRANKLIN (generalized anxiety disorder) (CMS/HCC) Generalized anxiety disorder Chronic fatigue Other malaise and fatigue Wellness examination Alcoholic cirrhosis of liver without ascites (K70.30)- Primary FRANKLIN (generalized anxiety disorder) (CMS/HCC) Generalized anxiety disorder RUQ abdominal pain Abdominal pain, right upper quadrant FRANKLIN (generalized anxiety disorder) (CMS/HCC)- Primary Generalized anxiety disorder Alcohol use disorder in remission Alcoholic cirrhosis of liver without ascites (K70.30) Chronic fatigue Other malaise and fatigue Psychophysiological insomnia Persistent disorder of initiating or maintaining sleep FRANKLIN (generalized anxiety disorder) (CMS/HCC) Generalized anxiety disorder Alcohol use disorder in remission Social anxiety disorder (CMS/HCC) Social phobia FRANKLIN (generalized anxiety disorder) (CMS/HCC) Generalized anxiety disorder Social anxiety disorder (CMS/HCC) Social phobia Alcoholic cirrhosis of liver without ascites (K70.30) History of alcohol abuse Nondependent alcohol abuse, in remission documented [facility] encounter [facility]* Diagnosis Alcohol use disorder in remission- Primary Alcoholic cirrhosis of liver without ascites (K70.30) Idiopathic urticaria FRANKLIN (generalized anxiety disorder) (CMS/HCC) Generalized anxiety disorder Chronic fatigue Other malaise and fatigue Wellness examination Alcoholic cirrhosis of liver without ascites (K70.30)- Primary FRANKLIN (generalized anxiety disorder) (CMS/HCC) Generalized anxiety disorder RUQ abdominal pain Abdominal pain, right upper quadrant FRANKLIN (generalized anxiety disorder) (CMS/HCC)- Primary Generalized anxiety disorder Alcohol use disorder in remission Alcoholic cirrhosis of liver without ascites (K70.30) Chronic fatigue Other malaise and fatigue Psychophysiological insomnia Persistent disorder of initiating or maintaining sleep FRANKLIN (generalized anxiety disorder) (CMS/HCC)- Primary Generalized anxiety disorder Alcohol use disorder in remission FRANKLIN (generalized anxiety disorder) (CMS/HCC) Generalized anxiety disorder Social anxiety disorder (CMS/HCC) Social phobia Alcoholic cirrhosis of liver without ascites (K70.30) History of alcohol abuse Nondependent alcohol abuse, in remission documented [facility] this encounter [facility]* Diagnosis Alcohol use disorder in remission- Primary Alcoholic cirrhosis of liver without ascites (K70.30) Idiopathic urticaria FRANKLIN (generalized anxiety disorder) (CMS/HCC) Generalized anxiety disorder Chronic fatigue Other malaise and fatigue Wellness examination Alcoholic cirrhosis of liver without ascites (K70.30)- Primary FRANKLIN (generalized anxiety disorder) (CMS/HCC) Generalized anxiety disorder RUQ abdominal pain Abdominal pain, right upper quadrant FRANKLIN (generalized anxiety disorder) (CMS/HCC)- Primary Generalized anxiety disorder Alcohol use disorder in remission Alcoholic cirrhosis of liver without ascites (K70.30) Chronic fatigue Other malaise and fatigue Psychophysiological insomnia Persistent disorder of initiating or maintaining sleep FRANKLIN (generalized anxiety disorder) (CMS/HCC)- Primary Generalized anxiety disorder Alcohol use disorder in remission FRANKLIN (generalized anxiety disorder) (CMS/HCC) Generalized anxiety disorder Social anxiety disorder (CMS/HCC) Social phobia Alcoholic cirrhosis of liver without ascites (K70.30) History of alcohol abuse Nondependent alcohol abuse, in remission documented in this encounter [facility]* Author Vicky Gates [facility] CenterAuthoredJanuary 2024 [id number] 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 Laboratory work-up for other etiologies of chronic liver disease including infectious autoimmune or metabolic diseases was done at the [facility]. We will obtain the results of the work-up. MELD of 6. Continue to monitor MELD labs Patient was counseled about 2 g sodium diet Will arrange for ultrasound liver AFP every 6 months for hepatocellular carcinoma screening. EGD on 08/08/2023 showed small esophageal varices, G OV 2 gastric varices and portal hypertensive gastropathy. Next EGD in 07/2025. Patient is already prescribed propranolol by her PCP for anxiety [facility] Work Phone: Evaluation note* Diagnosis Alcohol use disorder in remission- Primary Alcoholic cirrhosis of liver without ascites (K70.30) Idiopathic urticaria FRANKLIN (generalized anxiety disorder) (CMS/HCC) Generalized anxiety disorder Chronic fatigue Other malaise and fatigue Wellness examination Alcoholic cirrhosis of liver without ascites (K70.30)- Primary FRANKLIN (generalized anxiety disorder) (CMS/HCC) Generalized anxiety disorder RUQ abdominal pain Abdominal pain, right upper quadrant FRANKLIN (generalized anxiety disorder) (CMS/HCC)- Primary Generalized anxiety disorder Alcohol use disorder in remission Alcoholic cirrhosis of liver without ascites (K70.30) Chronic fatigue Other malaise and fatigue Psychophysiological insomnia Persistent disorder of initiating or maintaining sleep FRANKLIN (generalized anxiety disorder) (CMS/HCC)- Primary Generalized anxiety disorder Alcohol use disorder in remission FRANKLIN (generalized anxiety disorder) (CMS/HCC) Generalized anxiety disorder Social anxiety disorder (CMS/HCC) Social phobia documented in this encounter [facility]* Diagnosis Alcohol use disorder in remission- Primary Alcoholic cirrhosis of liver without ascites (K70.30) Idiopathic urticaria FRANKLIN (generalized anxiety disorder) (CMS/HCC) Generalized anxiety disorder Chronic fatigue Other malaise and fatigue Wellness examination Alcoholic cirrhosis of liver without ascites (K70.30)- Primary FRANKLIN (generalized anxiety disorder) (CMS/HCC) Generalized anxiety disorder RUQ abdominal pain Abdominal pain, right upper quadrant FRANKLIN (generalized anxiety disorder) (CMS/HCC)- Primary Generalized anxiety disorder Alcohol use disorder in remission Alcoholic cirrhosis of liver without ascites (K70.30) Chronic fatigue Other malaise and fatigue Psychophysiological insomnia Persistent disorder of initiating or maintaining sleep FRANKLIN (generalized anxiety disorder) (CMS/HCC)- Primary Generalized anxiety disorder Alcohol use disorder in remission FRANKLIN (generalized anxiety disorder) (CMS/HCC) Generalized anxiety disorder Social anxiety disorder (CMS/HCC) Social phobia Alcoholic cirrhosis of liver without ascites (K70.30) History of alcohol abuse Nondependent alcohol abuse, in remission documented in this encounter [facility]* Diagnosis Alcohol use disorder in remission- Primary Alcoholic cirrhosis of liver without ascites (K70.30) Idiopathic urticaria FRANKLIN (generalized anxiety disorder) (CMS/HCC) Generalized anxiety disorder Chronic fatigue Other malaise and fatigue Wellness examination Alcoholic cirrhosis of liver without ascites (K70.30)- Primary FRANKLIN (generalized anxiety disorder) (CMS/HCC) Generalized anxiety disorder RUQ abdominal pain Abdominal pain, right upper quadrant FRANKLIN (generalized anxiety disorder) (CMS/HCC)- Primary Generalized anxiety disorder Alcohol use disorder in remission Alcoholic cirrhosis of liver without ascites (K70.30) Chronic fatigue Other malaise and fatigue Psychophysiological insomnia Persistent disorder of initiating or maintaining sleep FRANKLIN (generalized anxiety disorder) (CMS/HCC)- Primary Generalized anxiety disorder Alcohol use disorder in remission FRANKLIN (generalized anxiety disorder) (CMS/HCC) Generalized anxiety disorder documented in this encounter [facility]* Diagnosis Alcohol use disorder in remission- Primary Alcoholic cirrhosis of liver without ascites (K70.30) Idiopathic urticaria FRANKLIN (generalized anxiety disorder) (CMS/HCC) Generalized anxiety disorder Chronic fatigue Other malaise and fatigue Wellness examination Alcoholic cirrhosis of liver without ascites (K70.30)- Primary FRANKLIN (generalized anxiety disorder) (CMS/HCC) Generalized anxiety disorder RUQ abdominal pain Abdominal pain, right upper quadrant FRANKLIN (generalized anxiety disorder) (CMS/HCC)- Primary Generalized anxiety disorder Alcohol use disorder in remission Alcoholic cirrhosis of liver without ascites (K70.30) Chronic fatigue Other malaise and fatigue Psychophysiological insomnia Persistent disorder of initiating or maintaining sleep FRANKLIN (generalized anxiety disorder) (CMS/HCC)- Primary Generalized anxiety disorder Alcohol use disorder in remission FRANKLIN (generalized anxiety disorder) (CMS/HCC) Generalized anxiety disorder Social anxiety disorder (CMS/HCC) Social phobia documented in this encounter [facility]* Diagnosis Alcohol use disorder in remission- Primary Alcoholic cirrhosis of liver without ascites (K70.30) Idiopathic urticaria FRANKLIN (generalized anxiety disorder) Generalized anxiety disorder Chronic fatigue Other malaise and fatigue Wellness examination Alcoholic cirrhosis of liver without ascites (K70.30)- Primary FRANKLIN (generalized anxiety disorder) Generalized anxiety disorder RUQ abdominal pain Abdominal pain, right upper quadrant FRANKLIN (generalized anxiety disorder)- Primary Generalized anxiety disorder Alcohol use disorder in remission Alcoholic cirrhosis of liver without ascites (K70.30) Chronic fatigue Other malaise and fatigue Psychophysiological insomnia Persistent disorder of initiating or maintaining sleep FRANKLIN (generalized anxiety disorder)- Primary Generalized anxiety disorder Alcohol use disorder in remission Well woman exam with routine gynecological exam Routine gynecological examination Alcoholic cirrhosis, unspecified whether ascites present (HCC) Constipation, unspecified constipation type Abnormal uterine bleeding (AUB) documented in this encounter [facility]* Diagnosis Alcohol use disorder in remission- Primary Alcoholic cirrhosis of liver without ascites (K70.30) Idiopathic urticaria FRANKLIN (generalized anxiety disorder) Generalized anxiety disorder Chronic fatigue Other malaise and fatigue Wellness examination Alcoholic cirrhosis of liver without ascites (K70.30)- Primary FRANKLIN (generalized anxiety disorder) Generalized anxiety disorder RUQ abdominal pain Abdominal pain, right upper quadrant FRANKLIN (generalized anxiety disorder)- Primary Generalized anxiety disorder Alcohol use disorder in remission Alcoholic cirrhosis of liver without ascites (K70.30) Chronic fatigue Other malaise and fatigue Psychophysiological insomnia Persistent disorder of initiating or maintaining sleep FRANKLIN (generalized anxiety disorder)- Primary Generalized anxiety disorder Alcohol use disorder in remission FRANKLIN (generalized anxiety disorder) Generalized anxiety disorder Social anxiety disorder Social phobia documented in this encounter [facility] HealthcareHistory and physical note Author Vicky Gates [facility] August 08, 2023 10:00amNote Date/TimeSept2022 9:56[place] [address] Gastroenterology H&P Signed Patient: Radha Hines MR#: [id number] : 1990 Acct:[id number] Age/Sex: 33 / F Adm Date: 3 Loc: Room: Type: [facility] Attending Dr: Vicky Gates MD Copies to: MD Shaikh Jeramy Robertson MD~ Date of Service: 08/08/2023 HISTORY & PHYSICAL: Patient's history with special attention to the cardiovascular, pulmonary systems and the current problem was reviewed with the patient immediately prior to the procedure. Present medications and doses reviewed in the EMR. Allergies and pertinent laboratory tests were also re viewedat this time in the EMR. The physical [...] an appropriate candidate for the procedure. Vicky Gates M.D. Documented By: Vicky Gates MD 08/08/23 0954 Signed By: <Electronically signed by Vicky Gates MD> 08/08/23 1000 [facility] Work Phone: History general Narrative - Reported* Type Description Date Medical History EtOH cirrhosis Medical HistoryanxietyMedical Historychronic depressionSurgical History appendectomySurgical HistoryD&CHospitalization Historysee above [employer] Other History general Narrative - Reported* Type Description Date Medical History EtOH cirrhosis Medical HistoryanxietySurgical HistoryappendectomySurgical HistoryD&C Hospitalization Historysee above [employer] Other Hospital Discharge instructions Additional Instructions DISCHARGE [...] NOT operate machinery such as power tools, Vineloopn mowers, snow blowers, sewing machines, etc. for [...] problems. -Follow up with PCP. -Office number [phone]. [facility] Work Phone: Hospital Discharge instructions Additional Instructions DISCHARGE INSTRUCTIONS [...] NOT operate machinery such as power tools, Vineloopn mowers, snow blowers, sewing machines, etc. for [...] or working out. FOLLOW UP & RECOMMENDATIONS: -Notify the doctor if you have any problems. -Follow up in the office -Office number [phone]. [facility] [employer] Work Phone: Reason for referral (narrative)No reason for referral information availableCrystal Clinic Orthopedic Center Work Phone: Summary Purpose Family History Relationship Condition Age at Onset Recorded Date/T jolynn grandparent Malignant neoplasm of breast Unknown grandparentMalignant neoplasm of throatUnknowngrandparentMalignant neoplasm of brainUnknown Advance Directives Advance Directive Response Recorded Date/ Time Advance Directives No May 08 2:58pm Advance Directive Response Recorded Date/ Time Advance Directives No May 08 1:58pm Chief Complaint and Reason for Visit Chief Complaint Admit Date 1yr office visit/ Cirrhosis November 3:23pm K70.31 December 25, 2024 9 :37am Reason for Visit Admit Date Esophageal varices determined by endosco py December 13, 2024 3:23pm 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 December 13, 2024 3:23pm Chief Complaint M79.671 Cirrhosis Chief Complaint Sore throat, eye irr itation Reason for Visit Sore throat Chief Complaint Admit Date 1yr office visit/ Cirrhosis November 3:23pm Chief Complaint Admit Date Right lower back pain April 13, 2025 3:5 3pm Chief Complaint Admit Date Cirrhosis August 05, 2025 7:05am Chief Complaint Admit Date Cirrhosis August 05, 2025 7:05am chills, congestion September 06, 2025 5 :37pm Reason for Visit Admit Date Chills September 06, 2025 5 :37pm Chief Complaint Admit Date Cirrhosis August 05, [...] (TSH) le stacy September 21, 2025 10:23am Additional Source Comments INFORMATION SOURCE (unrecogn ized section and content) DATE CREATED AUTHOR 02/06/2022 [facility] DATE CREATED AUTHOR AUTHOR'S ORGANIZ ATION 04/25/2023 [facility] DATE CREATED AUTHOR AUTHOR'S ORGANIZ ATION 05/30/2025 [facility] DATE CREATED AUTHOR AUTHOR'S ORGANIZ ATION 09/13/2025 [facility] REASON FOR VISIT (unrecogniz ed section and content) ReasonOnset DateCommentsMed Lnqgrd27/01/2024ReasonCommentsFollow-upReasonOnset DateCommentsMed [id number]c EvaluationSpecialty Diagnoses / ProceduresReferred By ContactReferred To ContactBehavioral Health Diagnoses FRANKLIN (generalized anxiety disorder) ([facility]) Procedures MD OFFICE/OUTPATIENT NEW HIGH MDM 60 MINUTES Ed Copeland NP [address] [place] [address] Phone: tel: fax: Bobo Trinidad NP [address] [place] [address] [place] [address] Phone: tel: fax: Referral IDStatusReasonStart DateExpiration DateVisits RequestedVisits [id number] Specialty Services Required [id number]yjEfqmykdoTfqdes-loQcstctHgepvtje Med ManagementFollow-upReasonCommentsWell Women Visit Care Teams (unrecognized sec tion and content) Team Status: Active Member Role Status Dates Shaikh Jeramy MD Primary Care Provider Active Team Status: Inactive Member Role Status Dates Shaikh Jeramy MD Primary Care Provider Active Freddy Noriega ProviderActive Team Status: Inactive Member Role Status Dates Shaikh Jeramy MD Primary Care Provider Active Norma Robertson ProviderActive Team Status: Inactive Member Role Status Dates Shaikh Jeramy MD Primary Care Provider Active Start: April 16, 2024 End: April 16, 2024Freddy Noriega ProviderActiveStart: April 16, 2024 End: April 16, 2024Team MemberRelationshipSpecialtyStart DateEnd Date Randal Simms MD [address] [place] [address] PCP - GeneralFamily Medicine06/30/24 Ed Copeland NP [address] [place] [address] Nurse PractitionerRegional Medical Centerly Medicine06/30/24Team MemberRelationshipSpecialtyStart DateEnd Date Unallocated, Noms ProviderMD [address] [place] [address] PCP - GeneralFamily Oivdltto23/21/ Ed Copeland NP [address] [place] [address] Nurse Pract[facility]erSt[facility]06/30/24Team MemberRelationshipSpecialtyStart DateEnd Date Unallocated, Noms Provider, [address] [place] [address] PCP - GeneralRegional Medical Centerly Ctzsuvyt32/21/ Ed Copeland NP [address] [place] [address] Nurse Pract[facility]Ber[facility] Medicine06/30/24Team MemberRelationshipSpecialtyStart DateEnd Date Ed Copeland NP [address] [place] [address] Nurse PractitionerBer[facility] Medicine06/30/24Team MemberRelationshipSpecialtyStart DateEnd Date Ed Copeland NP [address] [place] [address] Nurse PractitionerBer[facility] Medicine06/30/24Team MemberRelationshipSpecialtyStart DateEnd Date Ed Copeland NP [address] [place] [address] Nurse PractitionerSt. [facility]06/30/24Team MemberRelationshipSpecialtyStart DateEnd Date Ed Copeland NP [address] [place] [address] Nurse PractitionerSt. [facility]06/30/24Team MemberRelationshipSpecialtyStart DateEnd Date Ed Copeland NP [address] [place] [address] Nurse PractitionerSt. [facility]06/30/24 Vicky Gates MD [address] [phone] Referring MdgdphifyLpnlffunmodpkolx21/23/24Team MemberRelationshipSpecialtyStart DateEnd [facility] Ed Copeland NP [address] [place] [address] Nurse PractitionerSt. [facility] Hospital06/30/24 Vicky Gates MD [address] [phone] Referring XkkvnqcakWfgpttzavpdppfhf81/23/24Team MemberRelationshipSpecialtyStart DateEnd Date Ed Copeland NP [address] [place] [address] Nurse PractitionerFamily Medicine06/30/24 Vicky Gates MD [address] [phone] Referring NraxjuvkqEkwjquombwdsylpt57/23/24Team MemberRelationshipSpecialtyStart DateEnd Date Ed Copeland NP [address] [place] [address] Nurse PractitionerFawestborough state hospital Medicine06/30/24 Vicky Gates MD [address] [place] [phone] Referring CkvbudjuwWqvbjtnzjbemdgrm65/23/24Team MemberRelationshipSpecialtyStart DateEnd Date Ed Copeland NP [address] [place] [address] Nurse PractitionerFaFannin Regional Hospital06/30/24 Vicky Gates MD [address] [place] [phone] Referring VreppbfejXegnleuupzkoltfx77/23/24 Team Status: Inactive Member Role Status Dates Shaikh Jeramy MD Primary Care Provider Active Start: December 13, 2024 End: December 13, 2024Imagail Gates MDAttending ProviderActiveStart: December 13, 2024 End: December 13, 2024 Team Status: Active Member Role Status Dates GHULAM Christy Primary Care Provider Ac tive Team Status: Inactive Member Role Status Dates Vicky Gates MD Attending Provider Active Start: December 25, 2024 End: December 25[facility] Care ProviderActive Start: December 25, 2024 End: December 25, 2024Team MemberRelationshipSpecialtyStart DateEnd Date Ed Copeland NP [address] [place] [address] Nurse PractitionerFamily Medicine06/30/24 Vicky Gates MD [address] [place] [phone] Referring LoyrjxlgwZlaerzxtmtpayuad04/23/24 Nav Guzmán [facility]12/22/24Te MemberRelationshipSpecialtyStart Date End Date Ed Copeland NP [address] [place] [phone] Nurse PractitionerFaFannin Regional Hospital06/30/24 Vicky Gates MD [address] [place] [phone] Referring PpphbzsinAwjgsohdtwmixaor64/23/24 Nav Guzmán L[facility] WorkerB[facility] Mawr [facility]12/22/24 MemberRelationshipSpecialtyStart Date End Date Ed Copeland NP Nurse PractitionerFawestborough state hospital Medicine06/30/24 Vicky Gates MD [address] [phone] Referring CfmefkyilRdaqxaefslctpxam68/23/24 Nav Guzmán [facility]12/22/24Team MemberRelationshipSpecialtyStart Date End Date Ed Copeland, REJI Nurse PractitionerFamily Medicine06/30/24 Vicky Gates MD [address] [phone] Referring DihptmneiOakooxaajrcaukfb69/23/24 Nav [facility] Social WorkerBryn Mawr Hospital12/22/24Team MemberRelationshipSpecialtyStart Date End Date Unallocated, Sallie Pena MD [address] [facility] [place] [address] PCP - GeneralFamily Medicine01/18/25 Ed Copeland NP Nurse PractitionerRegional Medical Centerly [facility]06/30/24 Vicky Gates MD [address] [place] [phone] Referring EheotubozHinolwuljyfhmlre48/23/24 Nav Guzmná [facility] WorkerB[facility]12/22/24Te MemberRelationshipSpecialtyStart Date End Date Unallocated, Sallie Pena MD [address] [place] [address] PCP - GeneralFamily Medicine01/18/25 Ed Copeland NP Nurse PractitionerRegional Medical Centerly Medicine06/30/24 Vicky Gates MD [address] [phone] Referring MtfoxpiwqHntdrivrcbufubyo28/23/24 Nav Guzmán [facility] Social WorkerB[facility] Mawr Hospital12/22/24Team MemberRelationshipSpecialtyStart Date End Date Unallocated, Sallie Pena MD [address] [facility] [place] [address] PCP - GeneralFamily Medicine01/18/25 Ed Copeland, REJI Nurse PractitionerSt. Francis Hospital06/30/24 Vicky Gates MD [address] [place] [phone] Referring JmxvgdqyrRriquncggbwhniba40/23/24 Nav Guzmán [facility] Social WorkerB[facility] Maw[facility] Hospital12/22/24Team MemberRelationshipSpecialtyStart Date End Date Unallocated, Sallie Pena MD [address] [facility] [place] [address] PCP - GeneralBerkshire Medical Center Medicine01/18/25 Ed Copeland NP Nurse PractitionerSt. [facility] Hospital06/30/24 Vicky Gates MD Referring GtjkkukhmMhayapxtmpbwdukh50/23/24 Nav Guzmán [facility] Social WorkerB[facility] Maw[facility] Hospital12/22/24Team MemberRelationshipSpecialtyStart Date End Date Unallocated, Sallie Pena MD [address] [place] [address] PCP - GeneralFamily Medicine01/18/25 Ed Copeland, REJI Nurse PractitionerFamily Medicine06/30/24 Vicky Gates MD Referring XxomkejzxCizixvfdfwrizkie17/23/24 Nav Guzmán LPC Social WorkerBryn Mawr Hospital12/22/24 Team Status: Inactive Member Role Status Dates Ed Copeland NP-C Primary Care Provider Ac tive Start: April 13, 2025 End: April 13quique Tim APRNAtsy ProviderActiveStart: April 13, 2025 End: April 13, 2025Team MemberRelationshipSpecialtyStart DateEnd Date Unallocated, Salile Pena MD [address] [place] [address] PCP - GeneralFamily Medicine01/18/25 Ed Copeland NP Nurse PractitionerFamily Medicine06/30/24 Vicky Gates MD Referring GwuucsuifZtlnsjdhvkpdtjnq52/23/24 Nav Guzmán L[facility] WorkerB[facility]aw[facility] Hospital12/22/24Team MemberRelationshipSpecialtyStart Date End Date Unallocated, Sallie Pena MD [address] [place] [address] PCP - GeneralFamily Medicine01/18/25 Ed Copeland NP Nurse PractitionerFamily Medicine06/30/24 Vicky Gates MD Referring LwudrepnlMfxepuwfveothmjp20/23/24 Nav Guzmán [facility]12/22/24Te MemberRelationshipSpecialtyStart Date End Date Unallocated, Sallie Pena MD [address] [facility] [place] [address] PCP - GeneralSt. [facility] Hospital01/18/25 Ed Copeland NP Nurse PractitionerSt. Francis Hospital06/30/24 Vicky Gates MD Referring IowiixqfyFrkcnljgvvdmiqcs01/23/24 Nav Guzmán [facility]12/22/24Te MemberRelationshipSpecialtyStart Date End Date Unallocated, Sallie Pean MD [address] [place] [address] PCP - [facility]01/18/25 Ed Copeland, REJI Nurse PractitionerSt. Francis Hospital06/30/24 Vicky Gates MD Referring HoxrepfkfJuyckntypwiycakt59/23/24 Nav Guzmán [facility]12/22/24Te MemberRelationshipSpecialtyStart Date End Date Unallocated, Sallie Pena MD [address] [place] [address] PCP - GeneralSt. [facility] Hospital01/18/25 Ed Copeland, REJI Nurse PractitionerSt. [facility] Hospital06/30/24 Vicky Gates MD Referring UkosjmejmMdpxtwjspufwaeqt95/23/24 Nav Guzmán [employer] Social WorkerBryn Mawr Hospital12/22/24Team MemberRelationshipSpecialtyStart Date End Date Unallocated, Sallie Pena MD [address] [place] [address] PCP - GeneralFaally Medicine01/18/25 Ed Copeland NP Nurse PractitionerBerkshire Medical Center Medicine06/30/24 Vicky Gates MD Referring UdhympqhrEyayoesaveplgxig07/23/24 Nav Guzmán LPC Social WorkerBryn Mawr Hospital12/22/24 Team Status: Active Member Role Status Dates PHYSICIAN NO FAMILY Primary Care Provider Active Team Status: Active Member Role Status Dates Vicky Gates MD Attending Provider Active Start: August 05, 2025 Vicky Gates MDOther ProviderActiveStart: August 05, 2025 PHYSICIAN NO FAMILYPrimary Care ProviderActiveStart: August 05, 2025 Team Status: Active Member Role/Relationship Status Dates PHYSICIAN NO FAMILY Primary Care Provider Active Team Status: Active Member Role/Relationship Status Dates Vicky Gates MD Attending Provider Active Start: August 05, 2025 Vicky Gates MDOther ProviderActiveStart: August 05, 2025 PHYSICIAN NO FAMILYPrimary Care ProviderActiveStart: August 05, 2025 Team Status: Inactive Member Role/Relationship Status Dates PHYSICIAN NO FAMILY Primary Care Provider Active Start: September 06, 2025 End: September 06, 2025Ness Lemon APRN PROVISIONING ANALYST-CAttending Provider ActiveStart: September 06, 2025 End: September 06, 2025 Team Status: Active Member Role/Relationship Status Dates Vicky Gates MD Attending Provider Active Start: August 05, 2025 Vicky Gates MDOther ProviderActiveStart: August 05, 2025 PHYSICIAN NO FAMILYPrimary Care ProviderActiveStart: August 05, 2025 Team Status: Inactive Member Role/Relationship Status Dates PHYSICIAN NO FAMILY Primary Care Provider Active Start: September 06, 2025 End: September 06, 2025Ness Lemon APRN PROVISIONING ANALYST-CAttending Provider ActiveStart: September 06, 2025 End: September 06, 2025 Team Status: Inactive Member Role/Relationship Status Dates DISHA Veronica RN PROVISIONING ANALYST-C Attending Provider Active Start: September 06, 2025 End: September 06, 2025Team MemberRelationshipSpecialtyStart DateEnd Date Shaikh Deshpande MD PCP - GeneralInternal Dpvdwjvz27/1/233 Shaikh Deshpande MD PCP - GeneralInternal Medicine Randal Simms MD PCP - GeneralFamily Medicine06/30/2410 Unallocated, Sallie Pena MD [address] [place] [address] PCP - GeneralFamily Iqdbozbc10/21/ Unallocated, Sallie Pena MD [address] [place] [address] PCP - GeneralFamily Medicine01/18/25 Ed Copeland NP Nurse PractitionerFamily Medicine06/30/24 Vicky Gates MD [address] [place] [address] Referring IetduzuvhShtmbcrtcztmvqaq36/23/24 Nav Guzmán LPC [facility]12/22/24Team MemberRelationshipSpecialtyStart Date End Date Shaikh Deshpande MD [facility] Randal Simms MD PCP - GeneralFamily Medicine06/30/2410 Unallocated, Sallie Pena MD [address] [place] [address] PCP - Generalmily Xyihtwhx34/21/ Unallocated, Sallie Pena MD [address] [place] [address] [facility] - [facility] Ed Copeland, REJI Nurse PractitionerSt. [facility] Hospital06/30/24 Vicky Gates MD [address] [place] [address] [place] [address] Referring ZpalzxxsmSrebajgvnlxajaje41/23/24 Nav Guzmán LPC [facility]12/22/24Team MemberRelationshipSpecialtyStart Date End Date Unallocated, Sallie Pena MD [address] [place] [address] [facility] - [facility]/25 Ed Copeland NP [facility] Medicine06/30/24 Vicky Gates MD Referring ZjommocauIzfwortdqqbvinsn55/23/24 Nav Guzmán LPC [facility]12/22/24 Team Status: Active Member Role/Relationship Status Dates GHULAM Monique Primary Care Provider Active Team Status: Inactive Member Role/Relationship Status Dates DISHA Veronica RN PROVISIONING ANALYST-C Attending Provider Active Start: September 06, 2025 End: September 06, 2025 Team Status: Inactive Member Role/Relationship Status Dates GHULAM Monique Primary Care Provider Active Start: September 21, 2025 End: September 21, 2025Lizbeth Owens NP-CAttending ProviderActiveStart: September 21, 2025 End: September 21, 2025 Goals (unrecognized section and content) Goals may [...] BE BASED ON THE PRIMARY CLINICAL RECORDS. [facility] [employer] provides no warranty or guarantee of the accuracy or completeness of information in this document.
--- OUTSIDE RECORDS SUMMARY | 2025-09-23 08:43 | XMS_ITS | Encounter Summary ---
Author Organization [facility] Address [address] [place] [address] Care Team Providers Care Wire Roller Name Role Phone Shaikh MAXI Deshpande Primary Care Provider [phone] Shaikh MAXI Deshpande Primary Care Provider [phone] Randal Simms MD Primary Care Provider [phone] Radha Copeland STONECUTTER APPRENTICE HAND Unavailable [phone] Unallocated, [facility] Provider Primary Care Provi cooper Vicky Cedillo MD Unavailable Nav Mulligan LPC Unavailable Unavailable Unallocated, [facility] Provider Primary Care Provi cooper Encounter Details DateTypeDepartmentCare Team (Latest Contact Info)Qilqlvfedfm31/17/2024linisync Result Encounter [facility] External Department Unsolicited Provider, Generic External Data Social History Tobacco UseTypesPacks/DayYears UsedDateSmoking Tobacco: Every DayCigarettes Comments:6-10 Alcohol UseStandard Drinks/WeekCommentsNever0 (1 standard drink = 0.6 oz pure alcohol)caffeine intake: 1-2 cups per [id number] Health LiteracyAnswerDate RecordedHow often do you need [...] times a week11/30/2024How often do you attend roman catholic or samaritan services?Patient rtaekegp27/14/2025Do you belong to any clubs or organizations such as roman catholic groups, unions, fraternal or athletic virgilio ups, or school groups?Patient vehkqlwe78/14/2025How often do you attend meetings of the clubs or organizations you belong to?Patient azkiaxfr04/14/2025re you , , , , never , or living with a partner? Gyxpbawj53/14/2025UDIT-CAnswerDate RecordedQ1: How often do you have a [...] and heating?Somewhat hard11/30/2024PHQ-2AnswerDate RecordedPatient Health Questionnaire-2 Score0 01/10/2025Finmount[facility]star healthcare [place] [facility] - Occupational Stress QuestionnaireAnswerDate [...] the mortgage or rent on time? Patient ubcpnieq40/14/2025In the past 12 months, how many times have you moved where you were living?t any time in the past 12 months, were you homeless or living in a prison (including now)?No11/30/2024Comments UnknownSex and Gender InformationValueDate RecordedSex Assigned at BirthFemale 06/19/2023 9:45 AM EDTLegal AgxWfwlxt44/15/2023 11:17 PM EDTGender Identity Xbolap9306/19/2023 9:45 AM EDTSexual OrientationNot on filedocumented as of this encounter Functional Status * AUDIT-C ScoreAnswerDate of DqzvfzyjfxAipvda797/14/2025 9:20 AM Kendy Blackmon * Q1: How often do you have a drink containing alcohol?AnswerDate of Assessment XqmpuxQjmxy32/14/2025 9:20 AM Neymar Generic * Q2: How many drinks containing alcohol do you have on a typical day when you are drinking?AnswerDate of AssessmentAuthorPatient does not drink11/30/2024 9:20 AM Kendy Blackmon * Q3: How often do you have six or more drinks on one occasion?AnswerDate of CnedqxuexaBhxsmfFnysu64/14/2025 9:20 AM Neymar Generic * Over the past 2 weeks, how often have you been bothered by any of the following problems?QuestionAnswerDate of AssessmentAuthorPatient Health Questionnaire-2 Ophfc965 3:07 PM Delisa Tee LPN * Over the last 2 weeks, how often have you been bothered by any of the following problems?QuestionAnswerDate of AssessmentAuthorFeeling nervous, anxious, or on jkud093 3:07 PM ESTCollins Delisa, LPNNot being able to stop or control usvovkde162/24/2025 3:07 PM ESTCollmatthew Delisa, LPNWorrying too much about different 3:07 PM ESTCollins, Delisa, LPNTrouble sifjmsne688/24/2025 3:07 PM ESTCollmatthew Delisa, LPNBeing so restless that it is hard to sit ejcbg628 3:07 PM ESTCollins, Delisa, LPNBecoming easily annoyed or rphvnjaiy086/24/2025 3:07 PM ESTCollins Delisa, LPNFeeling afraid as if something awful might zsrzmu692 3:07 PM ESTCollmatthew Delisa, LPNGAD-7 Total Eyymr347 3:07 PM ESTCollmatthew Delisa, INTERN BRAND * Over the past 2 weeks, how often have you been bothered by any of the following problems?QuestionAnswerDate of AssessmentAuthorLittle interest or pleasure in doing thingsNot at all01/10/2025 3:07 PM ESTCollins, Delisa, INTERN BRAND Feeling down, depressed, or hopelessNot at all01/10/2025 3:07 PM ESTCollins, Delisa, LPNTrouble falling or staying asleep, or sleeping too muchNot at all 01/10/2025 3:07 PM ESTCollins, Delisa, LPNFeeling tired or having little energy Not at all01/10/2025 3:07 PM ESTCollins, Delisa, LPNPoor appetite or overeating Not at all01/10/2025 3:07 PM ESTCollins, Delisa, LPNFeeling bad about yourself - or that you are a failure or have let yourself or your family downNot at all 01/10/2025 3:07 PM ESTCollins, Delisa, LPNTrouble concentrating on things, such as reading the newspaper or watching televisionNot at all01/10/2025 3:07 PM ESTCollins Delisa, LPNMoving or speaking so slowly that other people could have noticed? Or the opposite - being so fidgety or restless that you have been moving around a lot more than usual.Not at all01/10/2025 3:07 PM Delisa Tee LPNThoughts that you would be better off or hurting yourself in some wayNot at all01/10/2025 3:07 PM Delisa Tee LPNPatient Health Questionnaire-9 Wcivq088 3:07 PM Delisa Tee LPN documented as of this encounter Plan of Treatment DateTypeDepartmentCare Team (Latest Contact Info)Ygwjxixbivf42/29/2026 4:00 PM EDTOffice Visit [facility] [place] [facility] [address] [place] [address] Chalo Wick DO [address] [place] [address] documented as of this encounter Procedures Procedure NamePriorityDate/TimeAssociated DiagnosisCommentsUS RIGHT UPPER LEUMGIFX30/17/2024 9:20 AM EST documented in this encounter Results * US RIGHT UPPER QUADRANT (01/03/2024 9:20 AM EST)Anatomical RegionLaterality ModalityOtherSpecimen (Source)Anatomical Location / LateralityCollection Method / VolumeCollection TimeReceived Time01/03/2024 9:20 AM EST Narrative 01/03/2024 9:22 AM EST [facility] ?[address] ? [place] [address] ? Ultrasound Report ? Signed ? Patient: HIMME,ROCIO A ?MR#: [id number] ?? : 1990 ?Acct:[id number] ?? Age/Sex: 33 / F ?ADM Date: 01/03/24 ?? Loc: US ? Attending Dr: Non-Staff Physician Shreya ? Ordering Physician: Physician,Non-Staff M.D. ?? Date of Service: 01/03/24 ?? Procedure(s): US right upper quadrant ?? Accession Number(s): [id number] ? cc: Shaikh Shreya Deshpande; Physician,Non-Staff M.D. ? [facility] ? [address] ? [place] [address] ? Patient Name: ?? ROCIO A HIM ? MRN: [facility]:[id number] ? date: 1990 ?Sex: F ?? Assigned Patient Location: US ?? Current Patient Location: [place] ?? Accession/Order Number: [id number] ?? Exam Date: 01/03/2024 ??08:15 ?Report Date: 01/03/2024 ??09:20 ? At the request of: ?? NON-STAFF ??PHYSICIAN ? Procedure: ??US right upper quadrant ? EXAMINATION: US right upper quadrant ? HISTORY: Alcoholic cirrhosis of liver with ascites K70.31 ? COMPARISON: Ultrasound right upper quadrant 07/26/2023 ? TECHNIQUE: Transabdominal evaluation of the right upper quadrant. ? FINDINGS: ?? LIVER: Nodular margins and slightly heterogeneous echotexture suggestive of ?? cirrhosis. Small varices within hilum. ?? PORTAL VEIN: Duplex Doppler demonstrates normal hepatopetal flow pattern with ?? flow velocity averaging 20 cm/s. ?? GALLBLADDER: No visible gallstones, wall thickening, or pericholecystic free ?? fluid. Negative sonographic Carreon's sign. ?? BILIARY: No abnormal dilation or stones. Common bile duct diameter is within ?? normal limits. ?? PANCREASE: No visible mass, abnormal atrophy, or duct dilation. ?? KIDNEY: No hydronephrosis. No visible mass or stones. Size: 11.0 x 5.4 x 5.4 ?? cm ? US/US right upper quadrant ?? IMPRESSION: ? 1. Liver findings and small hilum varices compatible with cirrhosis. No ?? appreciable change. ?? 2. No free fluid. ? Electronically authenticated by: JUAN JOSE ??MAKAYLA ?? Date: 01/03/2024 ??09:20 ? Dictated By: ?Juan Jose Lang M.D. ? Signed By: ?01/03/24 0922 ? DD/ 0920 ? TD/TT: ? Train Operations Manager: Procedure Note Radiology, Radiologist, MD - 01/03/[address] [address] Ultrasound Report Signed Patient: ROCIO HINES [facility]#: [id number] : 1990Acct:[id number] Age/Sex: 33 / FADM Date: 01/03/24 Loc: US Attending Dr: Carlos AlbertoStaff Physician Cash Ordering Physician: Armando Foster M.D. Date of Service: 01/03/24 Procedure(s): US right upper quadrant Accession Number(s): [id number] cc: Shaikh Shreya Deshpande; Armando Foster M.D. [place] [id number] Patient Name: ROCIO HINES MRN: [id number] date: 1990 Sex: F Assigned Patient Location: [place] Current Patient Location: [place] Accession/Order Number: [id number] Exam Date: 01/03/2024 08:15 Report Date: 01/03/2024 [...] Lang M.D. Signed By:01/03/24921 DD/ 9 TD/TT: Train Operations Manager: Authorizing ProviderResult TypeResult StatusGeneric External Data Provider CLINISYNC IMAGINGFinal Result documented in this encounter Visit Diagnoses Not on filedocumented in this encounter Care Teams Team MemberRelationshipSpecialtyStmcgrew DateEnd Date Shaikh Deshpande MD PCP - GeneralInternal Mhjgmrsd36/1/233 Shaikh Deshpande MD PCP - GeneralInternal Medicine Randal Simms MD [facility] - [facility]06/30/2410 Unallocated, Jonathan Pena MD [address] [place] [address] PCP - [facility] Gkjfhaea42/21/ Unallocated, Jonathan Pena MD [address] [place] [address] [facility] - [facility]01/18/25 Radha Copeland NP Nurse PractitionerGro[facility] Medicine06/30/24 Vicky Cedillo MD [address] [place] [address] Referring HcmqhamzpQoqdnmdfnaccyawx64/23/24 Nav Mulligan LPC Social WorkerSt. Mary Medical Center12/22/2509documented as of this encounter
--- OUTSIDE RECORDS SUMMARY | 2025-09-23 08:43 | XMS_ITS | Clinical Summary ---
Author Organization [facility] Address [address] [place] [address] Care Team Providers Care Treasury Associate Name Role Phone Shaikh MAXI Deshpande Primary Care Provider [phone] Garry Carrasco DO, David L Unavailable [phone] Allergies Active AllergyReactionsCriticalityNoted DateCommentsCiprofloxacinUnknownMedium 11/17/20183110NbcvaqvveacRlrxlhywMxbnit73/16/2017SulfamethoxazoleOther: See Comments 06/09/2021TrimethoprimOther: See Hezpjbhj65/24/2021 Medications MedicationSigDispense QuantityRefillsLast FilledStart DateEnd DateStatus ALPRAZolam (XANAX) 0.25 mg tablet Alprazolam Active 0.25 MG PO As Directed July 11, 2021 11:07am07/11/2021 Active dicyclomine (BENTYL) 20 mg tablet TAKE 1 TABLET BY MOUTH 4 TIMES A DAY FOR 30 DAYS06/26/2021ctive folic acid 1 mg tablet Take 1 mg by mouth once daily.07/09/2021ctive ibuprofen (MOTRIN) 800 mg tablet Take 800 mg by mouth.09/15/2019Active levoFLOXacin (LEVAQUIN) 750 mg tablet TAKE 1 TABLET BY MOUTH EVERY DAY FOR 5 DAYS06/11/2021ctive nabumetone (RELAFEN) 500 mg tablet Take 500 mg by mouth three times daily.05/10/2021ctive nicotine (NICODERM) 21 mg/24 hr APPLY 1 PATCH TO THE SKIN EVERY 24 HOURS06/11/2021ctive oxyCODONE IR (ROXICODONE) 5 mg immediate release tablet Oxycodone (Roxicodone) 5 mg tablet Active 2.5 MG PO Daily 7 5 June 11, 2021 2:50pm06/11/2021ctive prednisoLONE (PRELONE) 15 mg/5 mL syrup give 13 milliliters by mouth once daily07/03/2021ctive predniSONE (DELTASONE) 20 mg tablet Prednisone Active 20 MG PO Daily 7 7 June 11, 2021 2:57pm06/11/2021ctive spironolactone (ALDACTONE) 25 mg tablet Spironolactone Active 25 MG PO As Directed July 11, 2021 11:07am07/11/2021 Active thiamine (VITAMIN B1) 100 mg tablet Take 100 mg by mouth once daily.07/10/2021ctive venlafaxine ER (EFFEXOR XR) 37.5 mg 24 hr capsule Venlafaxine Active 37.5 MG PO Daily at bedtime July 11, 2021 11:07am 07/11/2021ctive VITAMIN B COMPLEX ORAL Vitamin B Complex Active 1 TAB PO Daily June 09, 2021 1:02am06/09/2021ctive Social History Tobacco UseTypesPacks/DayYears UsedDateSmoking Tobacco: Every DayCigarettes0.513 Smokeless Tobacco: NeverAlcohol UseStandard Drinks/WeekCommentsYes0 (1 standard drink = 0.6 oz pure alcohol)Spber now. Was drinking 12 pack every dayArea Deprivation IndexAnswerDate RecordedNational Score (1-100), lower number is lower riskNot on file07/26/2021tate Score (1-10), lower number is lower riskNot on file07/26/2021ata from: https://www.neighborhoodatlas.medicine.[employer].edu/. Last address used for calculationNot on file07/26/2021CommentsNoSex and Gender InformationValueDate RecordedSex Assigned at BirthNot on fileLegal Sex Nkgtho4011/14/2016 9:21 AM ESTGender IdentityNot on fileSexual OrientationNot on file Last Filed Vital Signs Vital SignReadingTime TakenCommentsBlood Rlwwqdym619/6110/09/2021 2:14 PM EDT Gxxxc9015/09/2021 2:14 PM FSEGvdeidavcom18.6 ??C (97.9 ??F)08/27/2021 2:14 PM EDTRespiratory Bxrq152508/10/2021 10:56 AM EDTOxygen Mlqcnxufjw99%08/27/2021 2:14 PM EDTInhaled Oxygen Concentration--Vllxup12 kg (141 lb)08/27/2021 2:14 PM EDT Kvrilu012.2 cm (5' 1.5 )08/27/2021 2:14 PM EDTBody Mass Index26.211 2:14 PM EDT Plan of Treatment Health MaintenanceDue DateLast DoneCommentsDTaP,Tdap,Td Vaccine (6 - Tdap) , 10/18/1996, 06/09/1990, Additional history existsAnxiety Wniuxumoi45/07/2006Depression Jkpvzttwz58/07/2006HIV Ixqkjttbv56/07/2006Cervical Cancer Rkizvvipr49/07/2009HPV Vaccine (1 - 3-dose SCDM series)2015Covid-19 Vaccine (3 - season)51, 08/08/2021Influenza Vaccine (#1)2025Hepatitis C BvxyyimgiZiacxokka30/11/2021Hepatitis B Vaccine Axedoeczl45/07/2022, 12/24/2021, 08/04/2000, Additional history exists Procedures Procedure NamePriorityDate/TimeAssociated DiagnosisCommentsHEPATITIS C ANTIBODY IA WITH JAMQTEKTTQHIOGAV05/11/2021 3:25 PM EDT Alcoholic cirrhosis of liver with ascites (HCC) from Last 3 Months or Most Recently Relevant to Health Maintenance Results * HEP C AB IA W/CONF SCRN (08/27/2021 3:25 PM EDT)ComponentValueRef RangeTest MethodAnalysis TimePerformed AtPathologist SignatureHep C Antibody IANegative Saaitfoc98/12/2021 5:39 PM EDTCleveland Clinic LaboratoriesSpecimen (Source) Anatomical Location / LateralityCollection Method / VolumeCollection Time Received TimeBloodBLOOD SPECIMEN / Ajudjgm67/09/2021 3:25 PM EDT1 3:26 PM EDT Narrative Authorizing ProviderResult TypeResult StatusImad Mamadou GERMANLABORATORYFinal Result Performing OrganizationAddressCity/State/ZIP CodePhone Number [facility] [address] [place] [address] [facility] [address] [place] [address] from Last 3 Months or Most Recently Relevant to Health Maintenance Insurance Care Teams Team MemberRelationshipSpecialtyStart DateEnd Date Shaikh Deshpande MD [facility] [place] [address] PCP - GeneralPrimary Care08/10/21 Robbin Castañeda Jr., [address] [address] ReferringGastroenterology08/10/21
--- OUTSIDE RECORDS SUMMARY | 2025-09-23 08:43 | XMS_ITS | Clinical Summary ---
Author Organization [facility] Address [address] [place] [address] Care Team Providers Care Law Instructor Name Role Phone Copeland, Radha MENDOZA Unavailable [phone] Vicky Cedillo MD Unavailable Unallocated, [facility] Provider MD Primary Care Provi cooper Allergies Active AllergyReactionsCriticalityNoted DateCommentsCiprofloxacinMedium 11/17/2018 Other Reaction(s): Unknown GsfurvmlysmVclktf31/16/2017 Other Reaction(s): Unknown, Vomiting Ssrgwlyhncebzpmo75/24/2021 Other Reaction(s): Other: See Comments Dchaiotvefli84/24/2021 Other Reaction(s): Other: See Comments Medications MedicationSigDispense QuantityRefillsLast FilledStart DateEnd DateStatus zolpidem (Ambien) 5 MG tablet Indications:Psychophysiological insomniaTake 1 tablet (5 mg) by mouth as needed at bedtime for sleep 30 tablet 4Active furosemide (Lasix) 20 MG tablet Indications:Alcoholic cirrhosis of liver without ascites (HCC)Take 1 tablet (20 mg) by mouth Daily as needed (for swelling) 90 tablet 5Active propranolol (Inderal) 10 MG tablet Indications:Social anxiety disorderTake 2 tablets (20 mg) by mouth 2 (two) times a day as needed (social anxiety) for up to 30 doses 60 tablet 5Active Active Problems ProblemNoted DateDiagnosed DateSocial anxiety idvneonl38/15/2025History of alcohol abuse01/15/2025Alcoholic cirrhosis of liver without ascites (K70.30) 01/28/2024 Assessment & Plan (05/04/2024 4:02 PM EDT): Stable, compensated. Recent US abd, labs - reviewed - mild ascites. On Lasix 20 mg as needed. Monitor. Assessment & Plan (01/28/2024 3:08 PM EDT): Stable, compensated. Recent US abd, labs - reviewed, normal Not on Lasix and Aldactone anymore. Monitor. Will call in lasix as needed. Chronic zhcyqcu6501/28/2024 Assessment & Plan (01/28/2024 2:57 PM EDT): Improved/resolved. This was likely due to low BP from lasix/aldactone. Alcohol use disorder in frzryzhep95/13/2024 Assessment & Plan (05/04/2024 4:02 PM EDT): Sober for over 4 years now. C/w same. FRANKLIN (generalized anxiety disorder)01/28/2024 Assessment & Plan (12/07/2024 3:23 PM EST): [...] OV. Is following with Dr. Aguila in [place] for cirrhosis on 12/13/2024. Assessment & Plan [...] behavioral therapy. She will look into it andsee if it helps. Assessment & Plan (01/28/2024 2:57 PM EDT): Previously required benzodiazepines and hydroxyzine. Well controlled now. Not on any medications Idiopathic /13/2024 Assessment & Plan (01/28/2024 3:08 PM EDT): [...] topical benadryl and cortisone cream Resolved Problems ProblemNoted DateDiagnosed DateResolved DateRUQ abdominal pain05/04/2024 11/03/2024 Assessment & Plan (05/04/2024 4:05 PM EDT): Un explained RUQ pain ever since she was diagnosed with liver cirrhosis. 3-4/week - lasts for an hour, no association with food. Denies diarrhea/constipation Ongoing/chronic for 3-4 years now. No evidence of GB dysfunction/Cholecystitis on US and HIDA scan previously. She previously used bentyl with no help. Trial of hyocyanine as needed. Udwycvn02Wellness wajaremsjsh51 Assessment & Plan (01/28/2024 3:16 PM EDT): Patient here for Annual Wellness Exam. Reviewed medical, surgical and social hx. Reviewed medication list. Health related questions and concerns addressed and answered. Patient provided appropriate education on chronic medical conditions and prescription medications. Encounters DateTypeDepartmentCare HuwuNrfthywcosv17/29/2025Telephone [facility] [address] [place] [phone] Nav Mulligan LPC from Last 3 Months Immunizations ImmunizationAdministration DatesNext DueHep A, Adult08/29/2022,12/24/2021Hep B, adult08/29/2022,02/21/2022,12/24/2021 Family History Medical HistoryRelationNameCommentsDiabetesMaternal GrandfatherThroat cancer Maternal GrandfatherBreast cancerMaternal GrandmotherHypertensionMotherAneurysm Paternal GrandfatherCancerPaternal GrandmotherRelationNameStatusCommentsFather AliveMaternal GrandfatherAliveMaternal GrandmotherDeceasedMotherAliveOtherAlive siblingsPaternal GrandfatherDeceasedPaternal GrandmotherDeceased Social History Tobacco UseTypesPacks/DayYears UsedDateSmoking Tobacco: Every DayCigarettes Passive Smoke Exposure: CurrentSmokeless Tobacco: Never Tobacco Cessation:Ready to Q uit: Not Asked; Counseling Given: Not Answered Comments:6-10 Alcohol UseStandard Drinks/WeekCommentsNot Currently0 (1 standard drink = 0.6 oz pure alcohol)caffeine intake: 3 cups per day [id number] Health LiteracyAnswer Date RecordedHow often do you [...] times a week11/30/2024How often do you attend oriental orthodox or faith services?Patient hnlrkyqk41/14/2025Do you belong to any clubs or organizations such as oriental orthodox groups, unions, fraternal or athletic virgilio ups, or school groups?Patient ptdfaqzf22/14/2025How often do you attend meetings of the clubs or organizations you belong to?Patient oodmhzqh63/14/2025re you , , , , never , or living with a partner? Ntgqnfcj14/14/2025UDIT-CAnswerDate RecordedQ1: How often do you have a [...] and heating?Somewhat hard11/30/2024PHQ-2AnswerDate RecordedPatient Health Questionnaire-2 Score0 01/10/2025[facility] [place] [facility] - Occupational Stress QuestionnaireAnswerDate [...] the mortgage or rent on time? Patient bberpcfn05/14/2025In the past 12 months, how many times have you moved where you were living?t any time in the past 12 months, were you homeless or living in a snf (including now)?No11/30/2024EducationAnswerDate RecordedWhat is the highest level of school you have completed or the highest degree you have received?Bachelor's degree (e.g., BA, AB, BS)4 CommentsNoSex and Gender InformationValueDate RecordedSex Assigned at Lahwhx2006/19/2023 9:45 AM EDTLegal HlcYdqyom02/15/2023 11:17 PM EDTGender DnmwfmznPrmsld66/03/2023 9:45 AM EDTSexual OrientationNot on file Last Filed Vital Signs Vital SignReadingTime TakenCommentsBlood Skaanjuz230/68005/11/2025 4:22 PM EDT Actvd0117 3:03 PM CKKIzmfffspvsk23.2 ??C (97.2 ??F)12/07/2024 2:56 PM ESTRespiratory Rdzb416412/07/2024 2:56 PM ESTOxygen Gocojtavmf85%12/07/2024 2:56 PM ESTInhaled Oxygen Concentration--Jyxpkh30.3 kg (141 lb 12.8 oz)05/11/2025 4:22 PM FGTWezzgs171.9 cm (5' 1 )12/07/2024 2:56 PM ESTBody Mass Index26.79 12/07/2024 2:56 PM EST Plan of Treatment DateTypeDepartmentCare Team (Latest Contact Info)Dublsujzhxf91/29/2026 4:00 PM EDTOffice Visit [facility] [address] [place] [address] Chalo Wick DO [address] [place] [address] Health MaintenanceDue DateLast DoneCommentsPneumococcal Vaccine: Pediatrics (0 to 5 Years) and At-Risk Patients (6 to 64 Years) (1 of 2 - PCV)2007 HPV/Tfkcuq0907/24/2018COVID-19 Vaccine (3 - 2024- season), 08/08/2021Influenza Vaccine (#1)2025ervical Cancer Mxfgvuagi92/25/2028Pap Smear Procedures Procedure NamePriorityDate/TimeAssociated DiagnosisCommentsPAP SMEARRoutine 05/11/2025 12:00 AM EDTfrom Last 3 Months or Most Recently Relevant to Health Maintenance Results * Pap Smear (05/11/2025 12:00 AM EDT)Specimen (Source)Anatomical Location / LateralityCollection Method / VolumeCollection TimeReceived TimeSwabCervical swab / Unknown Narrative Authorizing ProviderResult TypeResult StatusCorey Shamika DOLAB CYTOLOGY ORDERABLESFinal ResultPerforming OrganizationAddressCity/State/ZIP CodePhone Number EXTERNAL LAB from Last 3 Months or Most Recently Relevant to Health Maintenance Insurance Care Teams Team MemberRelationshipSpecialtyStart DateEnd Date Unallocated, [facility] Provider, [address] [place] [address] PCP - GeneralFamily Medicine01/18/25 Radha Copeland NP Nurse PractitionerFamily Medicine06/30/24 Vicky Cedillo MD Referring KfpticzztKwpvxzdxovierckl28/23/24
--- OUTSIDE RECORDS SUMMARY | 2025-09-23 08:43 | XMS_ITS | Clinical Summary ---
Author Organization [employer] [facility] Address [id number] [place] [address] Care Team Providers Care Transition Nurse Name Role Phone No Pcp, No Pcp Primary Care Provider Unavailabl e Allergies Active AllergyReactionsCriticalityNoted QpatNffhvbxgAiheczmilwy01/16/2017 Medications MedicationSigDispense QuantityRefillsLast FilledStart DateEnd DateStatus PNV95/FERROUS FUMARATE/FA ( ORAL) Take by mouth.Active ibuprofen (ADVIL,MOTRIN) 800 mg tablet Take 1 tablet (800 mg total) by mouth 3 (three) times a day 1 (one) hour before meals. 30 tablet 09/15/2019Active Active Problems ProblemNoted DateDiagnosed DateChoroid plexus cyst of fetus01/07/2017 Family History Medical HistoryRelationNameCommentsDiabetesMaternal GrandfatherThroat cancer Maternal GrandfatherBone cancerMaternal GrandmotherBreast cancerMaternal GrandmotherBrain TumorPaternal GrandfatherCancerPaternal GrandfatherBone cancer Paternal GrandmotherCancerPaternal GrandmotherHeart diseasePaternal Grandmother RelationNameStatusCommentsFatherAliveMaternal GrandfatherDeceasedMaternal GrandmotherDeceasedMotherAlivePaternal GrandfatherPaternal GrandmotherDeceased Social History Tobacco UseTypesPacks/DayYears UsedDateSmoking Tobacco: Every DayCigarettes Alcohol UseStandard Drinks/WeekCommentsYes0 (1 standard drink = 0.6 oz pure alcohol)occasionallyChildcareAnswerDate McaqnqayDviixjwzbDvrnxwg36/12/2019 EmploymentAnswerDate CavipprzZwwdsbrjnzPkwzrkq84/12/2019Purpose - LifeAnswerDate RecordedPurpose and direction in kkzoKysxrvb20/11/2021CommentsNoSex and Gender InformationValueDate RecordedSex Assigned at BirthNot on fileLegal Sex Mlvnyu1806/22/2015 12:14 PM EDTGender IdentityNot on fileSexual OrientationNot on file Last Filed Vital Signs Vital SignReadingTime TakenCommentsBlood Ugermeti955/8210 9:39 AM EDT Zhtxv898301/07/2017 3:00 PM ESTTemperature--Respiratory Rate--Oxygen Saturation-- Inhaled Oxygen Concentration--Mmgmnd52.4 kg (164 lb)09/15/2019 9:39 AM EDTHeight 154.9 cm (5' 1 )09/15/2019 9:39 AM EDTBody Mass Index30.9909/15/2019 9:39 AM EDT Plan of Treatment Health MaintenanceDue DateLast DoneCommentsDepression Ccalhbtsy60/07/2000Tobacco Urczvvsdr18/07/2000Adult BMI Vjymqtxur85/07/2006DTaP,Tdap and Td Vaccines (1 - Tdap)2007Pap Smear2009Influenza Puypnxi4007/18/2025 Medical Devices Not on file Insurance Care Teams Team MemberRelationshipSpecialtyStart DateEnd Date No Pcp, [place] [address] PCP - GeneralFami Medicine01/07/17
[2025-09-23 09:17] LABS: Hematocrit 41.4 % (36.0-48.0); Hemoglobin 14.0 g/dL (12.0-16.0); Immature Granulocytes Abs Auto 0.01 10^3/uL (0.00-0.03); Immature Granulocytes Pct Auto 0.2 % (0.0-0.5); Lymphocytes Absolute Auto 1.7 10^3/uL (1.2-3.8); Mean Corpuscular HGB Conc 33.8 g/dL (29.9-35.2); Mean Corpuscular Hemoglobin 31.1 pg (26.7-34.0); Mean Corpuscular Volume 92.0 fL (81.0-99.0); Platelet Count 175 10^3/uL (150-450); Red Blood Count 4.50 10^6/uL (4.20-5.40); White Blood Count 4.7 10^3/uL (4.0-11.0)
[2025-09-23 09:19] LABS: Glucose Urine UA NEGATIVE (NEGATIVE)
[2025-09-23 09:29] LABS: Cast Seen? NONE SEEN #/LPF (NONE SEEN); Crystals Seen? None Seen #/HPF (None Seen); Urine Culture Indicated ALREADY ORDERED
[2025-09-23 09:58] LABS: Mono Screen NEGATIVE (NEGATIVE)
[2025-09-23 10:40] LABS: Alanine Aminotransferase 24 U/L (14-59); Albumin Globulin Ratio 1.3; Albumin Level 4.0 g/dL (3.4-5.0); Alkaline Phosphatase 37 U/L (46-116); Anion Gap 15.1; Aspartate Amino Transferase 16 U/L (15-37); Blood Urea Nitrogen 8.0 mg/dL (7.0-18.0); Calcium 9.2 mg/dL (8.5-10.1); Carbon Dioxide 23.8 mmol/L (21.0-32.0); Chloride 107 mmol/L (98-107); Cholesterol 159 mg/dL (<=200); Estimated GFR (African America >60 (>=60 mL/min/1.73m^2); Estimated GFR (Non-African Ame >60 (>=60 mL/min/1.73m^2); Free T3 2.51 pg/mL (2.18-3.98); Globulin 3.1 g/dL; Glucose 97 mg/dL (74-106); HDL Cholesterol 58 mg/dL (40-60); Potassium 3.9 mmol/L (3.5-5.1); Sodium 142 mmol/L (136-145); Thyroid Stimulating Hormone 1.764 uIU/mL (0.358-3.740); Total Protein 7.1 g/dL (6.4-8.2); Triglycerides 51 mg/dL (<=150); VLDL CHOLESTEROL 10.2 mg/dL
[2025-09-23 10:44] LABS: Iron 185.0 ug/dL (50.0-170.0); Percent Iron Saturation 52.7 %; Total Iron Binding Capacity 351.0 ug/dL (250.0-450.0)
[2025-09-23 15:37] LABS: Folate 13.10 ng/mL (8.60-58.90)
[2025-09-24 08:11] LABS: Vitamin B12 977 pg/mL (232-1245)
[2025-09-27 12:12] LABS: Vitamin B1 (Thiamine), Blood 92.2 nmol/L (66.5-200.0)
== END 2025-09-23 08:40 | disposition home or self-care (01) ==
LOC: LAB 08:40
PROVIDERS: PCP Nurse Practitioner; Visit Provider Nurse Practitioner
DX: R79.89 Other specified abnormal findings of blood chemistry (principal); R53.83 Other fatigue; K70.31 Alcoholic cirrhosis of liver with ascites; N91.2 Amenorrhea, unspecified
CPT/HCPCS: 36415; 80053; 80061; 81001; 82306; 82607; 82746; 83540; 83550; 84146; 84425; 84439; 84443; 84481; 84703; 85025; 85652; 86308; 86376; 86800; 87086

== ENCOUNTER 2025-10-14 13:35 | Outpatient (OUT) | payer OTHER, SELFPAY ==
--- OUTSIDE RECORDS SUMMARY | 2025-10-14 05:34 | XMS_ITS | Continuity of Care Document ---
Author Organization [facility] Address [address] [place] [address] Phone Care Team Providers Care Shampoo Assistant Name Role Phone Vicky Cedillo MD Attending Provider [phone] Vicky Cedillo MD Other Provider NO FAMILY, PHYSICIAN Primary Care Provider Ness Moe APRN Attending Provider Lizbeth Owens [employer]PRESS[employer]CH[employer]-C Primary Care Provider Lizbeth Owens [employer]C Attending Provider NON STAFF Primary Care Provider Unavailabl e Care Teams Patient Care Team Team Status: Active Member Role/Relationship Status Dates NON STAFF Primary Care Provider Active Visit Care Team [...] 2025 End: September 06, 2025Ness Lemon APRN COMPRESSOR MECHANIC BUS-CAttending Provider ActiveStart: September 06, 2025 End: September 06, 2025 Visit Care Team Team Status: Inactive Member Role/Relationship Status Dates DISHA Veronica RN [employer]-C Attending Provider Active Start: September 06, 2025 End: September 06, 2025 Visit Care Team Team Status: Inactive Member Role/Relationship Status Dates GHULAM Monique Primary Care Provider Active Start: September 21, 2025 End: September 21, 2025DAVID MoniqueCAttenlydia ProviderActiveStart: September 21, 2025 End: September 21, 2025 Visit Care Team Team Status: Inactive Member Role/Relationship Status Dates GHULAM Monique Attending Provider Active Start: September 23, 2025 End: September 23, 2025 Visit Care Team Team Status: Active Member Role/Relationship Status Dates GHULAM Monique Primary Care Provider Active Start: September 23, 2025 [place] Monique ProviderActiveStart: September 23, 2025 Patient Care Team Team Status: Inactive Member Role/Relationship Status Dates Vicky Cedillo MD Attending Provider Active Start: October 14, 2025 End: October 14, 2025NON ST[facility]FFPr[facility] Care ProviderActiveStart: October 14, 2025 End: October 14, 2025 Chief Complaint and Reason for Visit Chief Complaint Admit Date Cirrhosis August 05, 2025 7:05am chills, congestion September 06, 2025 5 :37pm J02.9 September 06, 2025 6 :20pm ANNUAL WELLNESS September 21, 2025 1 0:23am Unknown September 23, 2025 8 :42am follow up/cirrhosis October 14, 2025 9:55am Reason for Visit Admit Date Chills September 06, 2025 5 :37pm 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 September 21, 2025 10:23am Anxiety September 21, 2025 1 0:23am Encounter for wellness examination Novem 2024 10:23am Fatigue September 21, 2025 1 0:23am Low thyroid stimulating hormone (TSH) le stacy September 21, 2025 10:23am 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 October 14, 2025 9:55am Esophageal varices October 14, 2025 9:55am Portal hypertension October 14, 2025 9:55am Allergies, Adverse Reactions, Alerts Allergen Type Severity Reaction Last Updated Verified Status penicillin G Allergy Unknown vomits nonstop October 14, 2025 10:04am Yes Active Penicillins Adverse Reaction Unknown Vomiting October 14, 2025 10:04am Yes Active sulfamethoxazole Adverse Reaction Unknown Joint Pain October 14, 2025 10:04am Yes Active trimethoprim Adverse Reaction Unknown Joint Pain October 14, 2025 10:04am Yes Active Social History Smoking Status Status [...] Diagnosis/Recorded Date Onset Date Status C omments Insomnia October 10, 2025 6:32pm Unknown Active Alcoholic cirrhosis of liver with ascitesMay 2024 2:58pmUnknownActive SciaticaMay 2024 3:36pmUnknownActiveFatigueNovember 2024 11:14am UnknownActiveUTI symptomsNovember 2024 6:28pmUnknownActiveAnxietyMay 2024 2:58pmUnknownActiveVitamin deficiencyNovember 2024 6:10amUnknownActive Esophageal varicesNovember 2024 10:26amUnknownActiveEncounter for wellness examinationSeptember 21, 2025 6:44amUnknownActiveCirrhosisJanuary 2024 3:24pmUnknownActiveLow thyroid stimulating hormone (TSH) levelMay 2024 2:58pmUnknownActiveOther ascitesMay 2024 2:58pmUnknownActiveAbdominal pain October 14, 2025 10:04amUnknownActivePortal hypertensionNovember 2024 10:26amUnknownActiveInactive/Resolved Problems Problem Diagnosis/Recorded Date Onset Date Status [...] List clean-up per request of Phys. EHR CmteEsophageal varices determined by endoscopyJanuary 2024 3:41pmUnknownResolved Medications Medication Status Dose Units Route Directions Qty Days Refills S tart Date Stop Date End Date Reason(s) Instructions Adherence Folic Acid 1 mg tablet Discontinued 1 MG PO Daily August 17, 2024 12:15pm April 13, 2025 3:03pmTake 1 tablet orally once a day.Furosemide 40 mg tablet Wfshzkyxhjvh16UJHBEc Directed as needed for water njoycgate83413Mowepfk 1st, 2024 12:17pmJanuary 2024 3:27pmThiamine Hcl (Vitamin B1) 100 mg tablet Fliisw746WNZWEfyab302Yhbrkllw 2024 6:10amVitamin deficiency Vitamin deficiency, unspecifiedComplies with drug therapyNitrofurantoin Monohyd/M-Cryst (Macrobid) 100 mg ehjqenfFoauhvineaun604GLYUHiovf esldd517 September 26, 2025 12:00amNovember 2024 12:40pmSymptoms of urinary tract infection Unspecified symptoms and signs involving the genitourinary systemmust administer with a meal/foodCephalexin 500 mg ydqhkyxUhtwtbwukueh199UGTYBqshi rcizc608 September 28, 2025 12:00amNovember 2024 10:04amSymptoms of urinary tract infection Unspecified symptoms and signs involving the genitourinary systemZolpidem 5 mg grtqpoQyhaxu6CBRSNhfqh as needed for hstaq43938Oqhqmnth 2024 6:31pm Insomnia Insomnia, unspecifiedComplies with drug therapyFurosemide 40 mg tablet Vopxzysdnysy63MZYCTb Directed as needed for water retentionAugust 2020 11:00pmMay 2023 4:39pmVenlafaxine 37.5 mg Capsule,Extended Release 24hr Lupugzkchkve86.5MGPODaily at bedtimeAugust 2020 11:00pmSeptember 2022 7:40amSpironolactone 25 mg mlcmikMmvpnkkwraqj15SWTYSg Directed as needed for water retentionAugust 2020 11:00pmJanuary 2024 3:44pmAlprazolam 0.25 mg tabletDiscontinued0.25MGPOAs DirectedAugust 2020 11:00pmSeptember 2022 7:40amFolic Acid 1 mg drfplpExqywuljiwjh1KTMETa DirectedAugust 2020 11:00pmOctober 2023 12:18pmFurosemide 40 mg glaciiFsopzjhpxesq63SFHTAk Directed as needed for water retentionMay 2023 4:38pmOctober 2023 12:18pmZolpidem 5 mg ylpqbyShteabbqdbst5VLYBDbgjcHeqhpsiey 2022 11:00pmMay 2023 4:39pmBupropion Hcl 150 mg tablet extended release 24 hrDiscontinued 150MGPODailySeptember 2022 11:00pmSeptember 2022 7:41amThiamine Mononitrate (Vit B1) (Vitamin B-1 (Mononitrate)) 100 mg jzbwffNvumyggeqyxc977AL POevery other daySept2022 11:00pmNovember 2024 10:30amZolpidem 5 mg tabletDiscontinued2.5MGPODaily as needed for sleepMay 2023 4:39pm October 10, 2025 6:33pmVitamin B Complex CpizdrHnoyymrfqymh0OAFJMRpqcrGweh 2020 11:00pmSeptember 2022 7:39amCranberry Conc-Ascorbic Acid 4,200- 20 mg RexonqnKjuqzjvmdijx0TIFDXPcppoSlkw 2020 11:00pmAugust 2020 10:07amAscorbic Wdnq-Sxubeqkl-Ndx (Emergen-C) 1,000 mg Powder Effervescent In XdcgbpFaxckdkppmym1ZXPRXGDoqjtMfzr 2020 11:00pmMay 2023 4:38pm Oxycodone (Roxicodone) 5 mg tabletDiscontinued2.5MGPODaily as needed for xbhi863 June 11eptember 2022 7:40amSpontaneous bacterial peritonitis Cholecystitis Alcoholic cirrhosis of liver with ascites Hepatic cirrhosis Abdominal ascites Varices of spleen Spontaneous bacterial peritonitis Cholecystitis, unspecified Alcoholic cirrhosis of liver with ascites Unspecified cirrhosis of liver Other ascites Varicose veins of other specified sitesLevofloxacin 750 mg ufltehDocivvswhyiv773 JODBFdhff670Zphv 2020 11:00pmAugust 2020 10:08amPrednisone 20 mg ilsnpjZpsvoeozfuwi70DEKENqrxq751Lojv 2020 11:00pmSeptember 2022 7:40amNicotine 21 mg/24 hr Patch 24 NsvjHmnzxctvdmhp1FBULDQUYLCUETGIQ80A99Djvn 2020 11:00pmAugust 2020 10:08amLoperamide (Anti-Diarrheal (Loperamide)) 2 mg VgjzqzaTrqpivyiydnz3UYWglyr morningly 2020 11:00pm June 11, 2021 2:47pmPsyllium Husk (Metamucil) 0.4 gram CapsuleDiscontinued0.4 GMPOBedtime as needed for fiberly 2020 11:00pmJuly 2020 2:47pm Propranolol 10 mg oqihozCalhweitzzem15WRBKPwbzv times daily as needed for anxietyJanuary 2024 12:00amNovember 2024 10:30amFurosemide 20 mg dcqekoHgcyzpucdrye52MHXCPnqxbsf 2024 12:00amJanuary 2024 3:45pm Furosemide 20 mg akronuBwhcoa29GBTZUc Directed as needed for edemaDecember 13, 2024 3:45pmComplies with drug therapyCyclobenzaprine 5 mg chdnufXmejybdvvxhg9WJ POThree times daily as needed for muscle nefgp307TxuApril 12, 2025 11:00pmSept2024 10:39amLidocaine 5 % adhesive patch,fyhyplmprVbwcnuoypsnx9LRGBXTFYGPTJ Daily as needed for uift439DewApril 12, 2025 11:00pmSept2024 10:39am leave on most painful area for up to 12 hrsPrednisone 20 mg bhvidjRcwxwksverse72 QDZKJuyzu0161Sdl 2024 11:00pmSept2024 10:40amOndansetron 4 mg tablet,qkfwvjhmvegnzqHphajhnijwal3SIOIFlmuh 8 hours as needed for nausea and hbbrggfh767Rby 28th, 2025 11:00pmSept2024 10:40amThiamine Hcl (Vitamin B1) 100 mg rrzhyxKeooqjurrqbx172ARKBWbphbFybarydz 5th, 2025 12:00am September 23, 2025 6:92lzKfgwpalmymqygfa-If-Dlkzairyklw (Capmist Dm) 60-15-400 mg mxdtdfVooslyrijcep4HLSISHXDQS 4-6 HOURS as needed for cold cohchnfk484Vur 30th, 2024 11:00pmJanuary 2024 3:28pmdo not exceed 4 doses per 24 hrs Ofloxacin 0.3 % zaiajUcuxnpelwdmg5ESVTMQOXJJWTEPGVnuz times hnyba8300CtfApril 15, 2024 11:00pmJanuary 2024 3:27pmto right eye Procedures Procedure Date Performed Status Throat Culture September 06, 2025 completed Urine Culture September 23, 2025 completed Quick Strep (POC) September 06, 2025 completed Relevant Diagnostic Tests and/or Laboratory Data Laboratory Results Test Collection Date/Time Result Date/Time Result Interpretation Reference Range Result Comment Performing Site Urine Culture Reflexed September 23, 2025 8:41am ALREADY ORDEREDVitamin B1 LevelSeptember 23, 2025 9:00amNove2024 9:00am92.2 nmol/L66.5-200.0This test was developed and its performance characteristicsdetermined by [facility]. It has not been cleared orapproved by the Food and Drug Administration.Performed at: [address] [id number] Director: Omi Reilly MD, Phone: [phone] Peroxidase AntibodiesSeptember 23, 2025 9:00amNove2024 9:00am16 [IU]/mL0-34ProlactinSeptember 23, 2025 9:00am18.1 ng/mL4.8-33.4 Performed at: [address] [id number] Director: Gumaro Holm PhD, Phone: [phone] # (Auto)September 23, 2025 9:00amNove2024 9:00am0.0 10 3/uL0.0-0.1Vitamin B12 Level September 23, 2025 9:00amN2024 9:39sv894 pg/eC233-0091Ndsomeqnf at: [address] [id number] Director: Gumaro Holm PhD, Phone: [phone] ThyroxineSeptember 23, 2025 9:00amNove2024 9:00am0.92 ng/dL0.76-1.46FolateSeptember 23, 2025 9:00amNove2024 9:00am13.10 ng/mL8.60-58.9025-Hydroxy Vitamin D TotalSeptember 23, 2025 9:00amN2024 9:00am39.7 ng/mL<20 ng/mL Vit D flbogvapf52-<30 ng/mL Vit D oydcppfcttss94-221 ng/mL Vit D sufficient>100 ng/mL Potential ToxicityIron SaturationSeptember 23, 2025 9:00amNove2024 9:00am52.7 %Thyroid Stimulating Hormone 3rd GenSeptember 23, 2025 9:00amNove2024 9:00am 1.764 u[iU]/mL0.358-3.740Free TriiodothyronineSeptember 23, 2025 9:00amNove2024 9:00am2.51 pg/mL2.18-3.98Cholesterol/HDL RatioN2024 9:00ove2024 9:00am2.73.3 - 4.4 LOW RISK4.4 - 7.1 AVERAGE RISK7.1 - 11.0 MODERATE RISK>11.0 HIGH RISKAnion GapSeptember 23, 2025 9:00amNove2024 9:00am15.1MonoscreenSeptember 23, 2025 9:00amNove2024 9:00am NEGATIVENEGATIVEHuman Chorionic Gonadotropin, QualSeptember 23, 2025 9:00am September 23, 2025 9:00amNEGATIVENEGATIVEErythrocyte Sedimentation RateSeptember 23, 2025 9:002024 9:00am8 mm/hr<=20Urine Other CastsSeptember 23, 2025 8:41amNONE SEEN #/LPFNONE SEENAnti-Thyroglobulin AntibodySeptember 23, 2025 9:002024 9:00am<1.0 [IU]/mL0.0-0.9Thyroglobulin Antibody measured by Joi CoulterMethodologyIt should be noted that the presence of thyroglobulinantibodies may not be pathogenic nor diagnostic, especiallyat very low levels. The assay fender mechanic apprentice has found thatfour percent of individuals without evidence of thyroiddisease or autoimmunity will have positive TgAb levels upto 4 IU/mL.Performed at: [address] [id number] Director: Gumaro Holm PhD, Phone: [phone] (%) (Auto)September 23, 2025 9:00amNove2024 9:00am0.4 %0.2-2.0Iron Level September 23, 2025 9:002024 9:38rd482.0 ug/dLAbove high normal 50.0-170.0Cholesterol LevelSeptember 23, 2025 9:00amNove2024 9:19xi882 mg/dL<=200Albumin/Globulin RatioNove2024 9:00amNove2024 9:00am1.3Urine Other CrystalsSeptember 23, 2025 8:41amNone Seen #/HPFNone Seen Eosinophils # (Auto)September 23, 2025 9:00amNove2024 9:00am0.2 10 3/uL0.0-0.7Total Iron Binding CapacitySeptember 23, 2025 9:00ove2024 9:98kl894.0 ug/dL250.0-450.0HDL CholesterolSeptember 23, 2025 9:00am September 23, 2025 9:00am58 mg/dL40-60> or =60 mg/dl - LOW CARDIOVASCULAR RISK<40 mg/dl - HIGH CARDIOVASCULAR RISKAlbuminSeptember 23, 2025 9:00amNove2024 9:00am4.0 g/dL3.4-5.0Urine BacteriaSeptember 23, 2025 8:41amSMALL #/HPFAbnormal (applies to non-numeric results)NONE SEENEosinophils (%) (Auto) September 23, 2025 9:00amNove2024 9:00am3.9 %0.9-7.0LDL Cholesterol, CalculatedSeptember 23, 2025 9:002024 9:00am90.8 mg/dL<100 mg/dl VIPBXMQ224-850 mg/dl NEAR OR ABOVE IHXTDLA292-518 mg/dl BORDERLINE PWIC945-697 mg/dl HIGH>190 mg/dl VERY HIGHAlkaline PhosphataseSeptember 23, 2025 9:00am September 23, 2025 9:00am37 U/LBelow low ysynqd21-196Xxqut BilirubinSeptember 23, 2025 8:41amNEGATIVENEGATIVEHematocritSeptember 23, 2025 9:00ove2024 9:00am41.4 %36.0-48.0Triglycerides LevelSeptember 235 9:00amNovember 2024 9:00am51 mg/dL<=150Alanine Aminotransferase (ALT/SGPT)September 23, 2025 9:00amNove2024 9:00am24 U/L82-44Stbmp Occult BloodNovember 2024 8:41amNEGATIVENEGATIVEHemoglobinNov2024 9:00amNovemb2024 9:00am14.0 g/dL12.0-16.0VLDL CholesterolNovember 2024 9:00amNove2024 9:00am10.2 mg/dLAspartate Amino Transf (AST/SGOT)September 23, 2025 9:00am September 23, 2025 9:00am16 U/K87-49Ncake AppearanceNov2024 8:41amSL CLOUDYCLEARImmature Granulocyte # (Auto)September 23, 2025 9:00amNove2024 9:00am0.01 10 3/uL0.00-0.03BUN/Creatinine RatioNovemb2024 9:00am September 23, 2025 9:00am16.0Urine ColorNovember 2024 8:41amYELLOWYELLOW Immature Granulocyte % (Auto)September 23, 2025 9:00amNove2024 9:00am 0.2 %0.0-0.5Blood Urea NitrogenNov2024 9:00amNove2024 9:00am8.0 mg/dL7.0-18.0Urine Glucose (UA)September 23, 2025 8:41amNEGATIVE mg/dL NEGATIVELymphocytes # (Auto)September 23, 2025 9:00amNovemb2024 9:00am 1.7 10 3/uL1.2-3.8Calcium LevelNovember 2024 9:00amNovemb2024 9:00am9.2 mg/dL8.5-10.1Urine KetonesNov2024 8:41amNEGATIVE mg/dL NEGATIVELymphocytes (%) (Auto)September 23, 2025 9:00amNove2024 9:00am 35.6 %20.5-60.0Chloride LevelNovember 2024 9:00amNovember 2024 9:00am 107 mmol/F14-085Ggqfk Leukocyte EsteraseNov2024 8:41amNEGATIVE NEGATIVEMean Corpuscular HemoglobinNovember 2024 9:00amNovemb2024 9:00am31.1 pg26.7-34.0Carbon Dioxide LevelNovember 2024 9:00amNovemb2024 9:00am23.8 mmol/L21.0-32.0Urine MucusNovember 2024 8:41amMODERATE Abnormal (applies to non-numeric results)NONE SEENMean Corpuscular Hemoglobin ConcentNov2024 9:00amNove2024 9:00am33.8 g/dL29.9-35.2 CreatinineNov2024 9:00amNovemb2024 9:00am0.50 mg/dLBelow low normal0.55-1.02Urine NitriteNov2024 8:41amNEGATIVENEGATIVEMean Corpuscular VolumeNov2024 9:00amNove2024 9:00am92.0 fL 81.0-99.0Estimated GFR ()September 23, 2025 9:00amNovemb2024 9:00am>60>=60 mL/min/1.73m 2Urine pHNov2024 8:41am7.55.0-9.0 Monocytes # (Auto)September 23, 2025 9:00amNovemb2024 9:00am0.3 10 3/uL 0.3-0.8Estimated GFR (Non- AmericanNov2024 9:00amNovemb2024 9:00am>60>=60 mL/min/1.73m 2Urine ProteinNov2024 8:41amTRACE mg/dLNEG/TRACEMonocytes (%) (Auto)September 23, 2025 9:00amNovemb2024 9:00am7.1 %1.7-12.0GlobulinNov2024 9:00amNovember 2024 9:00am3.1 g/dLUrine RBCNov2024 8:73ub0-1 #/HPF0-2Mean Platelet VolumeNov2024 9:00amNovemb2024 9:00am9.1 fLBelow low normal9.5-13.5Glucose LevelNov2024 9:00amNovemb2024 9:00am97 mg/iV25-573Ddlxb Specific GravityNov2024 8:41am1.0151.005-1.025Neutrophils # (Auto) September 23, 2025 9:00amNovemb2024 9:00am2.5 10 3/uL1.4-6.5Potassium LevelNov2024 9:00amNovemb2024 9:00am3.9 mmol/L3.5-5.1Urine Squamous Epithelial CellsNov2024 8:41amMODERATE #/LPFAbnormal (applies to non-numeric results)NONE/RARENeutrophils (%) (Auto)September 23, 2025 9:00amNove2024 9:00am52.8 %43.0-75.0Sodium LevelNov2024 9:00amNovemb2024 9:53se295 mmol/X283-367Qpdgy UrobilinogenNov2024 8:41am1.0 EU/dL0.2-1.0Platelet CountNov2024 9:00amNove2024 9:81id805 10 3/bV580-614Cupys BilirubinNov2024 9:00am September 23, 2025 9:00am1.1 mg/dLAbove high normal0.2-1.0Urine WBCNov2024 8:75pt7-1 #/HPFAbnormal (applies to non-numeric results)NONE SEENRed Blood CountNov2024 9:00amNovemb2024 9:00am4.50 10 6/uL4.20-5.40 Total ProteinNov2024 9:00amNovember 2024 9:00am7.1 g/dL6.4-8.2 Red Cell Distribution WidthNov2024 9:00amNovemb2024 9:00am 12.8 %11.0-15.0Corrected White Blood CountNov2024 9:00amNovemb2024 9:00am4.7 10 3/uL4.0-11.0 Microbiology Results Procedure Source Result Collection Date/Time Result Date/Time Result Comment Performing Site Quick Strep (POC) Throat September 06, 2025 6:18pmOctober 2024 6:18pmUrine CultureUrine, Not Otherwise Specified2 DaysSeptember 23, 2025 8:42amNovember 2024 9:37am [facility] [id number] [address] [facility] [address]Vvduep CultureThroat2 2024 6:20pmOctober 2024 9:10am[facility] [id number] [address] [facility] [address] Vital Signs Vital Reading Result Reference Range Collection Date/Time Height 62 [in_i] August 05, 2025 6:50vhGtqyea69.23 kgSept2024 6:30amHeart Rate83 /pib84-339Idgdamvlv 19th, 2025 8:21amRespiratory rate18 /rts52-95Igilebfxl 19th, 2025 8:21amOxygen saturation by Pulse ltoygajh76 %95-100Sept2024 8:21amBP Kkebaflz163 mm[Hg]100-140Sept2024 8:21amBP Lqjmnyuau38 mm[Hg]60-100Sept2024 8:21amBody Uqiphieoafz57.3 [degF]97.6-99.0 September 06, 2025 4:52pmHeart Wyzu492 /vzm01-068Scupovf 21st, 2025 4:52pm Respiratory rate18 /bol54-40Iqpnyci 21st, 2025 4:52pmOxygen saturation by Pulse kttfjjab54 %95-100September 06, 2025 4:52pmBP Sjcnkpfn814 mm[Hg]100-140October 2024 4:52pmBP Ujfwbybwr54 mm[Hg]60-100October 2024 4:87ffXwqdpb12 [in_i]September 21, 2025 10:31vxYmihhf10.74 kgSeptember 21, 2025 10:33amBody Ywbqicwbhth84.9 [degF]97.6-99.0September 21, 2025 10:33amHeart Rate74 /kmj77-148 September 21, 2025 10:33amRespiratory rate12 /kub14-13ZydgsfwsSeptember 21, 2025 10:33am Oxygen saturation by Pulse aioehtnl46 %95-100September 21, 2025 10:33amBP Jpqkyhzy519 mm[Hg]100-140September 21, 2025 10:33amBP Blfnvqyfy54 mm[Hg]60-100 September 21, 2025 10:33amBMI (Body Mass Index)24.9 kg/y8HtjgzhobSeptember 21, 2025 10:36lbTfuqrv23 [in_i]October 14, 2025 10:55dgYwxhgq70.96 kgOctober 14, 2025 10:05amHeart Rate66 /rwk93-019IcunswjbOctober 14, 2025 10:05amBP Ytkgxugz220 mm[Hg]100-140October 14, 2025 10:05amBP Oqimoapnf64 mm[Hg]60-100October 14, 2025 10:05amBMI (Body Mass Index)23.8 kg/i7ImasdpgpOctober 14, 2025 10:05am Advance Directives Advance Directive Response Recorded Date/ Time Advance Directives No May 08 1:58pm Insurance Providers Guarantor Radha Carter [facility] Address [address] [facility] [address]Kogpwdh Info.Home Phone: Coverage Status Update:2025 Payer Group Member ID Coverage Type Subscriber Relationship to Subscriber Effective Date Expiration Date [employer] Id: [id number] A [facility] Id: [id number] [address] [place] [address] Home Phone: Email: [email or web address] Active 62% 12-19-[address] [place] [address] Work Phone: [phone] A [facility] Id: [id number] [address] [place] [facility] [address] Home Phone: Email: [email or web address] 2024Self Pay nullSelfSelf Encounters Encounter Location(s) Arrival/Admit Date Discharge/Departure Date Discharge/Departure Disposition Provider(s) Non-patient / Non-visit -[facility] 2024 7:05am DARCIE Robertsoneparted Physician/Provider Office Visit-[facility] [place] September 06, 2025 5:37pmOctober 2024 6:24pmDischarged to home care or self care (routine discharge)LIO Veronicaeparted Clinical-Lab [facility]pm[facility] 2024 6:21pmDischarged to home care or self care (routine discharge)LIO Veronicaeparted Physician/Provider Office Visit-[facility] Family Medicine [facility] 2024 10:23amNovember 2024 11:21amDischarged to home care or self care (routine discharge)HCRIS Moniqueeparted Referred-LAB [facility] September 23, 2025 8:42amNovember 2024 8:43amDischarged to home care or self care (routine discharge)JAYSON Moniqueon-patient / Xaa-sardd-[place] [facility] 2024 9:00Susy Owens NP-JEANCARLOSeparted Physician/Provider Office Visit-[facility] 2024 9:55amNovember 2024 10:33amDischarged to home care or self care (routine discharge)Vicky Cedillo MD Recent Diagnosis Onset Date Admit Date Chills Unknown September 06 5:37pm Alcoholic cirrhosis of liver with ascites Unknow n September 21, 2025 10:23am Anxiety Unknown September 21 10:23am Encounter for wellness examination Unknown September 21, 2025 10:23am Fatigue Unknown September 21 10:23am Low thyroid stimulating hormone (TSH) level Unkn own September 21, 2025 10:23am Alcoholic cirrhosis of liver with ascites Unknow n October 14, 2025 9:55am Esophageal varices Unknown September 9:55am Portal hypertension Unknown September 9:55am Assessments Author Vicky Cedillo [facility]AuthoredNovember 2024 10:85mi20-fidr-eot 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 Laboratory work-up for other etiologies of chronic liver disease including infectious autoimmune or metabolic diseases was done at the [facility]. We will obtain the results of the work-up. Will check MELD labs Patient was counseled about 2 g sodium diet Will arrange for ultrasound liver AFP every 6 months for hepatocellular carcinoma screening. EGD on 08/08/2023 showed small esophageal varices, G OV 2 gastric varices and portal hypertensive gastropathy. EGD on 08/05/2025 showed 2 columns of small esophageal varices. Patient would like to switch propranolol to nadolol because propranolol is making her tired during the day. Will prescribe nadolol 20 mg at bedtime Plan of Treatment Author Ness Lemon [facility] HospitalAuthoredOctober 2024 5:53pmRapid strep negative in office today. [...] reestablish with a PCP. Author Lizbeth Owens [facility] HospitalAuthoredNovember 2024 2:47pmReviewed Ht/Wt/BMI Recommend eye exams yearly Recommend dental exam: twice a year Balance work/leisure activities exercise is recommended most days of the week (appropriate as chronic conditions allow) follow up yearly and prn has seen GI in the past, last seen 11/2024, quit alcohol in 2020 (wine, 1 bottle daily for 8 years) most recent labs in Epic 06/16/25 would like updated US of liver and is requesting me to order, I will reach out to GI for this no current meds, and no counseling recheck labs order labs Future Tests Future scheduled test information is unavailable Pending Tests Test Name Ordered Date Scheduled Date Comprehensive Metabolic Panel September 21, 2025 11:11am AFP Tumor Marker, SerumNovember 2024 10:16amUS liverNovember 2024 10:16am Future Visits Future appointment information is unavailable Future Procedures Procedure Name Ordered Date Scheduled Date Discharge Order August 05, 2025 7:58am Sept ember 2024 7:58am Dipstick and Microscopic September 21, 2025 11:1 1am Vitamin K82Qybwslkg 2024 11:11amComplete Blood Count Auto DiffNovember 2024 11:11amUrine CultureNovember 2024 11:11amLipid PanelNovember 2024 11:11amTriiodothyronine (T3) FreeNov2024 11:11amVit. B12/Folate ProfileNovember 2024 11:11amVitamin D 25 Hydroxy TotalNov2024 11:11amBasic Metabolic PanelNovember 2024 10:16amComplete Blood Count Auto DiffNovember 2024 10:16amHepatic PanelNovember 2024 10:16am Prothrombin Time INRNovember 2024 10:16am Future Medications Future medication information is unavailable Patient Instructions Instruction Admit Date Esophageal Varices (DC) Know your MedsSeptember 2024 7:05am
--- OUTSIDE RECORDS SUMMARY | 2025-10-14 13:38 | XMS_ITS | CCD ---
Author Organization [facility] Care Team Providers Care Jig Box Operator Name Role Phone Rodney Castañeda Unavailable Charlene [...] LISTED Primary Care UnavailRODNEY Quevedo Consulting Unavailable SHAMIKA ., DR RAMIREZ Consulting [...] Unavailable MD Kojo Deshpande Primary Care Provider [phone] MIKIE Perera Attending Provider [phone] MD Vicky Gates Attending Provider Randal Simms MD Primary Care Provider Dinorah DUCK OPERATOR, Ed Unavailable Unallocated MD, Noms Provider Primary Care Provi cooper Mamadou GERMAN, Imad Unavailable Mamadou GERMAN, Imsimi Attending Provider Dinorah DUCK OPERATOR-C, Ed Clarke Primary Care Provid er Nav Guzmán LPC Unavailable Unavailable Dinroah DUCK OPERATOR, Ed Unavailable Unallocated , Noms Provider Primary Care Provi cooper Mamadou GERMAN, Imad Unavailable ED COPELAND Attending Unavailabl e BOBO TRINIDAD Attending Unavailable RICHIEI, NAV Attending Unavailable BOBO TRINIDAD Attending Unavailable RICHIEINAV Attending Unavailable RICOICKI, NAV Attending Unavailable DINORAH, ED Attending Unavailabl e BOBO TRINIDAD Attending Unavailable DINORAH, ED Referring Unavailabl e NAV GUZMÁN Attending Unavailable RICOICKI, NAV Attending Unavailable RICOICKI, NAV Attending Unavailable MALICKI, NAV Attending Unavailable CHALO HOFFMAN Attending Unavailable MALICKI, NAV Attending Unavailable Mamadou GERMAN, Imsimi Attending Provider Mamadou GERMAN, Imsimi Other Provider NO FAMILY, PHYSICIAN Primary Care Provider Unava Ness Richard APRN Attending Provider Jeramy GERMAN, Primary Care Provider Jeramy GERMAN, Primary Care Provider Randal Simms MD Primary Care Provider Mamadou GERMAN, Imsimi Unavailable Mamadou GERMAN, Vicky Attending Provider [phone] Mamadou GERMAN, Vicky Other Provider NO FAMILY, PHYSICIAN Primary Care Provider Unava ilable Ness Lemon APRN Attending Provider Graciela MENDOZA-C, Lizbeth Marmolejo Primary Care Provider [phone] Graciela MENDOZA-C, Lizbeth Marmolejo Attending Provider [phone] Lizbeth Owens Attending Unavailable Lizbeth Owens Admitting Unavailable Ness Lemon Attending Unavail able Ness Lemon Admitting Unavail able Asaad, Imad Admitting Unavailable Ed Copeland Primary Care Unavaila ble Asaad, Imad Attending Unavailable Asaad, Imad Admitting Unavailable NO FAMILY, PHYSICIAN Primary Care Unavailable Asaad, Imad Attending Unavailable Allergies Allergy ClassificationReported Allergen(s)Allergy TypeDate of OnsetReaction(s) Facility (20 sources)Penicillin GDrug Xkzielz04-72-7530mxqdoxChildren[facility] (1 source)CiprofloxacinDrug Vuvfjxx62-61-6802[facility] (1 source)PenicillinDrug Uudxwur31-91-3875UjjSelect [facility] (20 sources)Penicillins; Translations: [Penicillins]Propensity to adverse nkrxgzyah24-99-3158BpzudxzwLdvmqajeePremier Health [facility] (20 sources)Sulfamethoxazole; Translations: [sulfamethoxazole]Drug Allergy 39-78-7562IfsnrSelect Medical [facility] (20 sources)Trimethoprim; Translations: [trimethoprim]Drug Mzwsruj31-91-3459 [facility] (20 sources)CiprofloxacinDrug Rdsmccy61-92-0006[facility] Work Phone: (1 source)PenicillinDrug Apgnrid46-68-0190AzkhxwafaBlanchard Valley Health System Repository Medications Current Medications MedicationDrug Class(es)DatesSig (Normalized)Sig (Original)cefdinir 300 mg oral capsule (1 source)Cephalosporin AntibacterialStart: 49-66-2231Yxlyzvdx 300 MG as directed Orally BID for 10 days Oct, Activecetirizine hydrochloride 10 mg oral tablet (1 source)Histamine-1 Receptor AntagonistStart: 85-69-3149bjel 1 tablet by mouth every twelve hoursCetirizine HCl 10 MG 1 tablet Orally Twice a day for 14 days Oct, Activedicyclomine hydrochloride 20 mg oral tablet (5 sources)AnticholinergicStart: 49-49-2404ljge 1 tablet by mouth every six hoursDicyclomine HCl 20 MG 1 tablet Orally FOUR TIMES A DAY for 30 day(s) Apr, ActiveStart: 58-04-2549ytht 1 tablet by mouth every six hours Dicyclomine HCl 20 MG 1 tablet Orally qid for 30 day(s) Jun, Not-Taking docusate sodium 100 mg oral capsule (5 sources)Start: 05-11-2025 End: 69-32-0207qwnc 1 capsule by mouth twice daily as needed for constipation docusate sodium (Colace) 100 MG capsule Indications: Constipation, unspecified constipation type Take 1 capsule (100 mg) by mouth 2 (two) times a day as needed for constipation 60 capsule 05/11/2025 06/10/2025 Activefluticasone propionate 0.05 mg/actuat metered dose nasal spray (1 source)CorticosteroidStart: 12-35-6865bhdo 1 spray(s) nasal route once daily Flonase Allergy Relief 50 MCG/ACT 1 spray in each nostril Nasally Once a day for 14 day(s) Oct, ActiveProbiotic (3 sources)Probiotic Activethiamine 100 mg oral tablet (20 sources)Start: 09-21-2025 End: 22-03-7270lqgz 1 tablet by mouth once dailyStart: 08-08-2023 End: 59-03-1629ivki 1 tablet by mouth every other dayThiamine Mononitrate (Vit B1) (Vitamin B-1 (Mononitrate)) 100 mg tablet Discontinued 100 MG PO every other day August 07, 2023 11:00pm September 21, 2025 10:30amStart: 08-08-2023 End: 26-68-2227lbry 1 tablet by mouth once dailythiamine (,Vitamin B-1,) 100 MG tablet Indications: Alcohol use disorder in remission Take 1 tablet(100 mg) by mouth Daily 12/07/2024 05/11/2025 Discontinued (Other)Vitamin B1 (14 sources)Vitamin B1 Activezolpidem tartrate 5 mg oral tablet (20 sources)gamma-Aminobutyric Acid-ergic AgonistStart: 05-12-2024 End: 32-12-8650kchwxvlx (Ambien) 5 MG tablet Indications: Psychophysiological insomnia Take 1 tablet (5 mg) by mouth as needed at bedtime for sleep 30 tablet 09/06/2024 ActiveStart: 48-07-0615gnhk 2.5 mg by mouth once daily as needed for sleepStart: 81-14-7028jsbh 2.5 mg by mouth once dailyZolpidem Active 2.5 MG PO Daily April 16, 2024 5:39pmStart: 08-08-2023 End: 08-47-1974rogo 1 tablet by mouth once dailyZolpidem 5 mg tablet Discontinued 5 MG PO Daily August 07, 2023 11:00pm April 16, 2024 4:39pm Ambien PRN ActiveAmbien Active Completed/Discontinued Medications MedicationDrug Class(es)DatesSig (Normalized)Sig (Original)ALPRAZolam 0.25 mg oral tablet (18 sources)BenzodiazepineStart: 07-11-2021 End: 81-89-7795Pparljnccn 0.25 mg tablet Discontinued 0.25 MG PO As Directed July 10, 2021 11:00pm August 08, 2023 7:40amALPRAZolam PRN Active ALPRAZolam ActiveCranberry Conc-Ascorbic Acid (10 sources)Non-Standardized Food Allergenic Extract, Non-Standardized Plant Allergenic Extract, Vitamin CStart: 06-09-2021 End: 03-59-8364feur 2 capsules by mouth once dailyCranberry Conc-Ascorbic Acid 4,200-20 mg Capsule Discontinued 2 CAP PO Daily June 09, 2021 12:00am July 11, 2021 11:07amStart: 06-09-2021 End: 69-75-3179psoi 2 capsules by mouth once dailyCranberry Conc-Ascorbic Acid 4,200-20 mg Capsule Discontinued 2 CAP PO Daily June 08, 2021 11:00pm July 11, 2021 10:07amStart: 06-09-2021 End: 29-58-7807acyk 2 capsules by mouth once dailyCranberry Conc-Ascorbic Acid Discontinued 2 CAP PO Daily June 09, 2021 12:00am July 11, 2021 11:07am Ascorbic Lnzl-Psvzeuhg-Czh (Emergen-C) 1,000 mg Powder Effervescent In Packet (10 sources)Start: 06-09-2021 End: 45-91-1874Lkxjgzzu Vdei-Tkubkmoy-Bcx (Emergen-C) 1,000 mg Powder Effervescent In Packet Discontinued 1 EACH PO Daily June 08, 2021 11:00pm April 16, 2024 4:38pmStart: 06-09-2021 End: 79-00-4830Osjgmcfg Syzy-Dnsrzrsp-Zni (Emergen-C) 1,000 mg Powder Effervescent In Packet Discontinued 1 EACH PO Daily June 09, 2021 12:00am April 16, 2024 5:38pmStart: 26-56-2831Uiaxjffd Dott-Uponfmtj-Ivv (Emergen-C) 1,000 mg Powder Effervescent In Packet Active 1 EACH PO Daily June 09, 2021 12:00am 24 hr buPROPion hydrochloride 150 mg extended release oral tablet (10 sources)AminoketoneStart: 08-08-2023 End: 25-96-1647dxhf 1 tablet by mouth once dailyBupropion Hcl 150 mg tablet extended release 24 hr Discontinued 150 MG PO Daily August 07, 2023 11:00pm August 08, 2023 7:41amcefTRIAXone (10 sources)Cephalosporin AntibacterialStart: 96-97-9417Lkhkmfyp 500 mg Jan, 500 mgcyclobenzaprine hydrochloride 5 mg oral tablet (6 sources)Muscle RelaxantStart: 04-13-2025 End: 74-38-1042upcr 1 tablet by mouth three times daily as needed for muscle spasmsCyclobenzaprine 5 mg tablet Discontinued 5 MG PO Three times daily as needed for muscle spasm 9 3 0May 2024 11:00pm July 22, 2025 10:39am dextromethorphan hydrobromide 15 mg / guaiFENesin 400 mg / pseudoephedrine hydrochloride 60 mg oraltablet (9 sources)alpha-Adrenergic Agonist, Uncompetitive C-xsbwzs-W-aspartate Receptor Antagonist, Sigma-1 AgonistStart: 04-16-2024 End: 56-79-5254ttlg 4 tablets by mouth every twenty-four hours as needed Rskgsxwscyohbzx-Dj-Alvykcjvoej (Capmist Dm) 60-15-400 mg tablet Discontinued 1 TAB PO EVERY 4-6 HOURS as needed for cold symptoms 30 0 April 15, 2024 11:00pm December 13, 2024 3:28pm do not exceed 4doses per 24 hrsfolic acid 1 mg oral tablet (20 sources)Start: 07-11-2021 End: 76-34-3457jsbc 1 tablet by mouth once dailyFolic Acid 1 mg tablet Discontinued 1 MG PO Daily 3 August 17, 2024 12:15pm April 13, 2025 3 :03pm Take 1 tablet orally once a day.Folic Acid Activefurosemide 20 mg oral tablet (20 sources)Loop DiureticStart: 05-25-2024 End: 40-74-3479Cpbiexduam 20 mg tablet Discontinued 20 MG PO December 13, 2024 12:00am December 13, 2024 3:45pmStart: 04-16-2024 End: 95-93-1107Quekcbrykf 40 mg tablet Discontinued 20 MG PO As Directed as needed for water retention 30 30 2 August 17, 2024 12:17pm December 13, 2024 3:27pmStart: 71-80-2216Mnhigetnph Active 20 MG PO As Directed April 16, 2024 5:38pmStart: 83-77-0754hura 1 tablet by mouth every twenty-four hoursFurosemide 20 MG 1 tablet Orally Once a day for 30 days Nov, Not-TakingStart: 07-11-2021 End: 85-99-0411Kekyqcidpa 40 mg tablet Discontinued 40 MG PO As Directed as needed for water retention July 10, 2021 11:00pm April 16, 2024 4:39pm Furosemide Activehyoscyamine sulfate 0.125 mg disintegrating oral tablet (9 sources)Start: 05-04-2024 End: 74-28-7774jnaq 2 tablets by mouth every six hourshyoscyamine (Anaspaz) 0.125 MG disintegrating tablet Indications: RUQ abdominal pain Take 2 tablets (0.25 mg) by mouth every 6 (six) hours if needed (Abdominal Pain) 30 tablet 1 05/04/2024 09/06/2024iscontinued (Discontinued by another clinician)Start: 88-71-9671wkec 1 tablet under the tongue twice daily as neededHyoscyamine Sulfate SL 0.125 MG 1 tablet under the tongue and allow to dissolve as needed Sublingual TWICE A DAY for 30 days March, ActivelevoFLOXacin 750 mg oral tablet (10 sources)Quinolone AntimicrobialStart: 06-11-2021 End: 85-34-8217ltsu 1 tablet by mouth once dailyLevofloxacin 750 mg tablet Discontinued 750 MG PO Daily 5 5 0 June 10, 2021 11:00pm July 11, 2021 10:08amlidocaine 0.05 mg/mg medicated patch (6 sources)Antiarrhythmic, Amide Local AnestheticStart: 04-13-2025 End: 08-22-7973vuaxx 1 dose topically once daily as needed for painLidocaine 5 % adhesive patch,medicated Discontinued 1 PATCH TOPICAL Daily as needed for pain 15 0 April 12, 2025 11:00pm July 22, 2025 10:39am leave on most painful area for up to 12 hrsloperamide hydrochloride 2 mg oral capsule (10 sources)Opioid AgonistStart: 06-11-2021 End: 45-11-2907uioc 1 capsule by mouth once daily in the morningLoperamide (Anti-Diarrheal (Loperamide)) 2 mg Capsule Discontinued 1 PO Every morning June 10, 2021 11:00pm June 11, 2021 2:47pmloratadine 10 mg oral tablet (9 sources)Start: 02-29-2024 End: 36-79-0161loyl 1 tablet by mouth once dailyloratadine (Claritin) 10 MG tablet Indications: Idiopathic urticaria Take 1 tablet (10 mg) by mouthDaily 90 tablet 1 02/29/2024 11/08/2024 Discontinued (Therapy completed)meloxicam (7 sources)Nonsteroidal Anti-inflammatory DrugMeloxicam Not-TakingMeloxicam ActivemethylPREDNISolone 4 mg oral tablet (2 sources)CorticosteroidMedrol 4 MG as directed Orally as directed for 6 days Not-Ixkcoc21 hr nicotine 0.875 mg/hr transdermal system (10 sources)Cholinergic Nicotinic AgonistStart: 06-11-2021 End: 11-87-7249hvdkz 1 dose transdermal route every twenty-four hoursNicotine 21 mg/24 hr Patch 24 Hour Discontinued 1 PATCH TRANSDERML Q24H 7 0 June 10, 2021 11:00pmAugust 2020 10:08amofloxacin 3 mg/ml ophthalmic solution (9 sources)Quinolone AntimicrobialStart: 04-16-2024 End: 12-99-0773vkwt 0.3 drop(s) into the eye(s) four times dailyOfloxacin 0.3 % drops Discontinued 2 DROPS OPHTHALMIC Four times daily 10 April 15, 2024 11:00pm December 13, 2024 3:27pm to right eyeStart: 37-54-1409mlse 1 drop(s) into the eye(s) four times dailyOfloxacin Active 2 DROPS OPHTHALMIC Four times daily 10 April 16, 2024 12:00am to right eyeondansetron 4 mg disintegrating oral tablet (5 sources)Serotonin-3 Receptor AntagonistStart: 04-14-2025 End: 42-46-1105mqup 1 tablet by mouth every eight hours as needed for nausea and vomitingOndansetron 4 mg tablet,disintegrating Discontinued 4 MG PO Every 8 hours as needed for nausea and vomiting 7 3 0 April 13, 2025 11:00pm July 22, 2025 10:40amoxyCODONE hydrochloride 5 mg oral tablet (20 sources)Opioid AgonistStart: 06-11-2021 End: 79-03-9362Iobefueha (Roxicodone) 5 mg tablet Discontinued 2.5 MG [...] ActiveoxyCODONE ER ActivepredniSONE 20 mg oral tablet (18 sources)Start: 04-13-2025 End: 93-89-4771cawq 2 tablets by mouth once dailyPrednisone 20 mg tablet Discontinued 40 MG PO Daily 10 5 April 12, 2025 11:00pm July 22, 2025 10:40amStart: 06-11-2021 End: 45-26-7115yjkj 1 tablet by mouth once dailyPrednisone 20 mg tablet Discontinued 20 MG PO Daily 7 7 0 June 10, 2021 11:00pm August 08, 2023 7:40ampredniSONE Not-Takingpropranolol hydrochloride 10 mg oral tablet (20 sources)beta-Adrenergic BlockerStart: 12-08-2024 End: 24-54-6189ujbw 2 tablets by mouth twice daily as needed for anxiety propranolol (Inderal) 10 MG tablet Indications: Social anxiety disorder Take 2 tablets (20 mg) by mouth 2 (two) times a day as needed (social anxiety) for up to 30 doses 60 tablet 3 01/10/2025 ActiveStart: 11-08-2024 End: 44-98-8599woci 1 tablet by mouth three times daily as needed for anxiety Propranolol 10 mg tablet Discontinued 10 MG PO Three times daily as needed for anxiety December 13, 2024 12:00am September 21, 2025 10:30ampsyllium 400 mg oral capsule (5 sources)Start: 06-11-2021 End: 98-09-5292Bhfotlal Husk (Metamucil) 0.4 gram Capsule Discontinued 0.4 GM PO Bedtime as needed for fiber June 10, 2021 11:00pm June 11, 2021 2:47pm Psyllium Husk (Metamucil) 0.4 gram Capsule (5 sources)Start: 06-11-2021 End: 51-51-1803Xfjajnsz Husk (Metamucil) 0.4 gram Capsule Discontinued 0.4 GM PO Bedtime as needed for fiber June 11, 2021 12:00am June 11, 2021 3:47pm Start: 06-11-2021 End: 43-57-0258Enjndgqa Husk (Metamucil) 0.4 gram Capsule Discontinued 0.4 GM PO Bedtime as needed for fiber June 10, 2021 11:00pm June 11, 2021 2:47pm Start: 06-11-2021 End: 21-08-0243Tbftesbm Husk (Metamucil) 0.4 gram Capsule Discontinued 0.4 GM PO Bedtime June 11, 2021 12:00am June 11, 2021 3:47pmrifAXIMin 550 mg oral tablet (7 sources)Rifamycin AntibacterialStart: 44-25-0499jcsc 1 tablet by mouth every twelve hoursXifaxan 550 MG 1 tablet Orally Twice a day for 30 day(s) Nov, Not-Takingspironolactone 25 mg oral tablet (20 sources)Aldosterone AntagonistStart: 07-11-2021 End: 67-14-7068Mqistzirrfalpl 25 mg tablet Discontinued 25 MG PO As Directed as needed for water retention July 10, 2021 11:00pm December 13, 2024 3:44pm take 1 tablet by mouth every twenty-four hoursSpironolactone 50 MG 1 tablet Orally Once a day ActiveSpironolactone Glgyvx42 hr venlafaxine 37.5 mg extended release oral capsule (18 sources)Serotonin and Norepinephrine Reuptake InhibitorStart: 07-11-2021 End: 31-72-0909yrsv 1 capsule by mouth once daily at [...] ActiveVitamin B Complex (2 sources)Start: 06-09-2021 End: 18-58-9920qvyp 1 tablet by mouth once dailyVitamin B Complex Discontinued 1 TAB PO Daily June 09, 2021 12:00am August 08, 2023 8:39amVitamin B Complex Tablet (8 sources)Start: 06-09-2021 End: 75-75-1119aunm 1 tablet by mouth once dailyVitamin B Complex Tablet Discontinued 1 TAB PO Daily June 09, 2021 12:00am August 08, 2023 8:39am Start: 06-09-2021 End: 27-00-0978hgew 1 tablet by mouth once dailyVitamin B Complex Tablet Discontinued 1 TAB PO Daily June 08, 2021 11:00pm August 08, 2023 7:39am Problems Active Problems Problem ClassificationProblemDateDocumented DateEpisodic/ChronicAbdominal pain (20 sources)Abdominal pain; Translations: [Unspecified abdominal pain]Onset: 08-21-2021 Resolved: 77-74-3481HsnfdzuqGkrlwee on above:Problem List clean-up per request of Phys. EHR CmteAlcohol-related disorders (20 sources)Alcoholic cirrhosis; Translations: [Alcoholic cirrhosis of liver with ascites]Onset: 08-21-2021 Resolved: 46-88-1111XplnquvYlswtyr on above:Problem List clean-up per request of Phys. EHR CmteAnxiety disorders (20 sources)Generalized anxiety disorder; Translations: [Generalized anxiety disorder]Onset: 01-28-2024 Resolved: 268385-68-3919KsvqkacXgdsypa tract disease (10 sources)Cholecystitis; Translations: [Cholecystitis, unspecified]06-09-2021 EpisodicComment on above:Problem List clean-up per request of Phys. EHR Cmte Deficiency and other anemia (1 source)Anemia; Translations: [Anemia, unspecified]66-14-5418Tzretmcj Esophageal disorders (10 sources)Esophageal varices; Translations: [Esophageal varices without bleeding]71-60-3245VmmfzoqWplnksfeoida; infection of eye (except that caused by tuberculosis or sexually transmitteddisease) (8 sources)Acute infectious conjunctivitis; Translations: [Unspecified acute conjunctivitis, right eye]93-06-0813ApacmhivEtxcwyp and fatigue (20 sources)Fatigue; Translations: [Chronic fatigue, unspecified]Onset: 256165-61-1526MnsplzuRqqmgtm and fatigue (4 sources)Fatigue; Translations: [Other fatigue]40-38-6988KbowuyiwSfsemywim disorders (8 sources)Irregular menstruation, unspecified; Translations: [Excessive and frequent menstruation with irregular cycle]Onset: 59-91-4699KyefetwCsbhqwkbwxjgv mental health disorders (3 sources)Psychophysiologic insomnia; Translations: [Psychophysiologic insomnia]53-69-6564TukvuqgPcdszdjgeow deficiencies (1 source)Vitamin deficiency; Translations: [Vitamin deficiency, unspecified] 39-12-9520IrniizdwHhmuj connective tissue disease (1 source)Pain in right footEpisodicOther diseases of veins and lymphatics (10 sources)Disorder of spleen; 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 EHR CmteOther female genital disorders (2 sources)Abnormal uterine bleeding; Translations: [Abnormal uterine and vaginal bleeding, unspecified]39-97-1266ReijuclIjnle gastrointestinal disorders (19 sources)Ascites; Translations: [Other ascites]21-96-7733MffxieakBqcwthl on above:Problem List clean-up per request of Phys. EHR CmteOther gastrointestinal disorders (1 source)Other ascitesEpisodicOther gastrointestinal disorders (2 sources)Constipation; Translations: [Constipation, unspecified]05-11-2025 EpisodicOther liver diseases (5 sources)Unspecified cirrhosis of liver; Translations: [UNSPECIFIED CIRRHOSIS OF LIVER]Onset: 62-27-5651UhioksmHkszu liver diseases (20 sources)Cirrhosis of liver; Translations: [Unspecified cirrhosis of liver] Onset: 858712-96-2404VyjxwlnHmssjjv on above:Problem List clean-up per request of Phys. EHR CmteOther screening for suspected conditions (not mental disorders or infectious disease) (10 sources)Ultrasound scan abnormal; Translations: [Abnormal findings on diagnostic imaging of other specifiedbody structures]Onset: 04-16-2022 Resolved: 55-21-4826CxycmyxIeaew screening for suspected conditions (not mental disorders or infectious disease) (15 sources)Encounter for screening for malignant neoplasm of cervix; Translations: [Blood chemistry abnormal]Onset: 40-65-7938QeauysttFrxmz upper respiratory infections (20 sources)Acute upper respiratory infection, unspecified; Translations: [Sore throat symptom]Onset: 08-15-2021 Resolved: 76-84-0688SmlcjyqhAziybf media and related conditions (1 source)Other acute nonsuppurative otitis media, bilateralEpisodicPeritonitis and intestinal abscess (10 sources)Primary bacterial peritonitis; Translations: [Spontaneous bacterial peritonitis]25-02-2700ThbokdvbRowzlay on above:Problem List clean-up per request of Phys. EHR CmteResidual codes; unclassified (2 sources)History of substance abuse; Translations: [Personal history of other specified conditions]76-74-2702RrvzjxcxIucarzmk codes; unclassified (6 sources)Chill; Translations: [Chills (without fever)]84-47-6104Teqiqfpv Spondylosis; intervertebral disc disorders; other back problems (5 sources)Sciatica; Translations: [Sciatica, unspecified side]04-13-2025 Episodic Past or Other Problems Problem ClassificationProblemDateDocumented DateEpisodic/ChronicAllergic reactions (20 sources)Idiopathic urticaria; Translations: [Idiopathic urticaria]Onset: 934785-93-5709TdehyzirXarqia neoplasm of uterus (1 source)Leiomyoma of uterus, unspecified; Translations: [LEIOMYOMA OF UTERUS UNSPECIFIED]Onset: 11-26-6942SffzuxslRuknmxuhchekc and screening for infectious disease (3 sources)Contact with and (suspected) exposure to other viral communicable diseases; Translations: [Contact with and (suspected) exposure to unspecified communicable disease]Onset: 08-15-2021 Resolved: 54-60-8441MznbuzqaEzbs disorders (17 sources)Mood disordersOnset: 244882-86-8231Rzgddmx cyst (6 sources)Other ovarian cyst, left side; Translations: [Unspecified ovarian cyst, left side]Onset: 84-59-9424Bihqmtlb Results Test NameValueInterpretationReference RangeFacilityCholesterol in LDL Calc [Mass/Vol]Ordered By: Lizbeth Owens on 53-03-4100Yyxcdeemxss in LDL [Mass/Vol] 90.8 mg/dLBlanchard Valley Health SystemComment on above:<100 mg/dl KPWPQCE498-044 mg/dl NEAR OR ABOVE OXKPPSH084-252 mg/dl BORDERLINE UFRS752-143 mg/dl HIGH>190 mg/dl VERY HIGHCholesterol in VLDL Calc [Mass/Vol]Ordered By: Lizbeth Owens on 11-13-7280Qaffhvrqgxo in VLDL [Mass/Vol]10.2 mg/dLBlanchard Valley Health SystemGlobulin Calc (S) [Mass/Vol]Ordered By: Lizbeth Owens on 34-96-6685Irefhsju (S) [Mass/Vol]3.1 g/dLBlanchard Valley Health System Glomerular filtration rate (GFR) estimation in non- AmericanOrdered By: Lizbeth Owens on 41-54-1075OHJ/1.73 sq M.predicted among non-blacks MDRD (S/P/Bld) [Vol rate/Area]mL/min/{1.73_m2}>=60 mL/min/1.73m 2FCleveland Clinic Avon HospitalIron binding capacity [Mass/volume] in Serum or PlasmaOrdered By: Lizbeth Owens on 41-74-6880Akkl binding capacity [Mass/Vol]351.0 ug/dL 250.0-450.0Bl[facility] SystemIron saturation [Mass Fraction] in Serum or PlasmaOrdered By: Lizbeth Owens on 67-58-0821Jtcd saturation [Mass fraction]52.7 %[facility] SystemLaboratory - Chemistry and Chemistry - challengeOrdered By: Lizbeth Owens on 72-41-8627Mtpkqog [Mass/Vol] 4.0 g/dL3.4-5.0[facility] SystemALP [Catalytic activity/Vol]37 U/QRuf50-100BqwxvanbjBlanchard Valley Health SystemALT [Catalytic activity/Vol]24 U/L 14-59[facility] SystemAST [Catalytic activity/Vol]16 U/L15-37 [facility] SystemBilirubin [Mass/Vol]1.1 mg/dLHigh0.2-1.0 [facility] SystemCalcium [Mass/Vol]9.2 mg/dL8.5-10.1FCleveland Clinic Avon HospitalChloride [Moles/Vol]107 mmol/O54-799WlyligodhBlanchard Valley Health SystemCholesterol [Mass/Vol]159 mg/dL<=200Bl[facility] SystemCholesterol in HDL [Mass/Vol]58 mg/kW53-54LabumecggBlanchard Valley Health SystemComment on above:> or =60 mg/dl - LOW CARDIOVASCULAR RISK<40 mg/dl - HIGH CARDIOVASCULAR RISKCO2 [Moles/Vol]23.8 mmol/L21.0-32.0[facility] SystemCreatinine [Mass/Vol]0.50 mg/dLLow0.55-1.02Fire[facility] Medical CenterFree T4 [Mass/Vol]0.92 ng/dL0.76-1.46[facility] GFR/1.73 sq M.predicted MDRD (S/P/Bld) [Vol rate/Area]mL/min/{1.73_m2}>=60 mL/min/1.73m 2FCleveland Clinic Avon HospitalGlucose [Mass/Vol]97 mg/wU60-646 [facility] SystemIron [Mass/Vol]185.0 ug/iFZizs67.0-170.0 [facility] SystemPotassium [Moles/Vol]3.9 mmol/L3.5-5.1FCleveland Clinic Avon HospitalProtein [Mass/Vol]7.1 g/dL6.4-8.2FMercy Health Tiffin Hospitalodium [Moles/Vol]142 mmol/O387-884QxfiysdwxBlanchard Valley Health SystemTriglyceride [Mass/Vol]51 mg/dL<=150[facility] SystemTSH Qn1.764 m[IU]/L0.358-3.740[facility] SystemUrea nitrogen [Mass/Vol]8.0 mg/dL7.0-18.0[facility] SystemUrea nitrogen/Creatinine [Mass ratio]16.0 mg/mgBlanchard Valley Health System Bilirubin Ql (U)NegativeNEGATIVEBlanchard Valley Health SystemGlucose (U) [Mass/Vol]NegativeNEGATIVEBlanchard Valley Health SystemKetones Ql (U) NegativeNEGATIVEBlanchard Valley Health SystempH (U)7.5 [pH]5.0-9.0Henry County Hospitalpecific gravity (U) [Rel density]1.0151.005-1.025 [facility] SystemUrobilinogen Qn (U)1.0 {Ofelia'U}/dL0.2-1.0 [facility] SystemLaboratory - Hematology and Cell countsOrdered By: Lizbeth Owens on 93-54-1998CCG (Bld) [Velocity]8 mm/h<=20[facility] SystemLaboratory - Specimen informationOrdered By: Lizbeth Owens on 67-62-1669Hkwrjgzyfe (U)SL CLOUDYCLEARFCleveland Clinic Avon HospitalColor (U) YELLOWYELLOWBlanchard Valley Health SystemLaboratory - UrinalysisOrdered By: Lizbeth Owens on 78-35-6355Qnoukalyb esterase Test strip Ql (U)NegativeNEGATIVE [facility] SystemMucus Ql (Urine sed)MODERATEAbnormalNONE SEEN [facility] SystemNitrite Ql (U)NegativeNEGATIVEBlanchard Valley Health SystemProtein Ql (U)TRACE mg/dLNEG/TRACEBlanchard Valley Health SystemNo Panel InformationOrdered By: Lizbeth Owens on - Hydroxy Vitamin D Total39.7 ng/mLBlanchard Valley Health SystemComment on above:<20 ng/mL Vit D sbnfuxgah50-<30 ng/mL Vit D dssjnwkwgeem94-640 ng/mL Vit D sufficient>100 ng/mL Potential PyronbxlTgmtub11.10 ng/mL8.60-58.90[facility] SystemFree Triiodothyronine2.51 pg/mL2.18-3.98[facility] SystemHuman Chorionic Gonadotropin, QualNegativeNEGATIVE [facility] SystemMonoscreenNegativeNEGGood Samaritan HospitalUrine BacteriaSMALL #/HPFAbnormalNONE [facility] HospitalUrine Culture ReflexedALREADY ORDEREDBlanchard Valley Health SystemUrine Occult BloodNegativeNEGGood Samaritan HospitalUrine Other CastsNONE SEEN #/LPFNONE [facility] HospitalUrine Other CrystalsNone Seen #/HPFNone [facility] HospitalUrine RBC0-2 #/HPF0-2FCleveland Clinic Avon HospitalUrine Squamous Epithelial CellsMODERATE #/LPFAbnormalNONE/RAREBlanchard Valley Health SystemUrine WBC2-5 #/HPF AbnormalNONE [facility] North Hospitalerum or plasma albumin/globulin mass ratioOrdered By: Lizbeth Owens on 09-23-2025 Albumin/Globulin [Mass ratio]1.3 {ratio}Henry County Hospitalerum or plasma anion gap determinationOrdered By: Lizbeth Owens on 85-18-0000Ojrzb gap [Moles/Vol]15.1 mmol/LFMercy Health Tiffin Hospitalerum or plasma total cholesterol/high density lipoprotein (HDL) cholesterol mass ratOrdered By: Lizbeth Owens on 09-37-1351Oouefnygsiu.total/Cholesterol in HDL [Mass ratio]2.7 {ratio}[facility] SystemComment on above:3.3 - 4.4 LOW RISK4.4 - 7.1 AVERAGE RISK7.1 - 11.0 MODERATE RISK>11.0 HIGH RISKUrine Cultureon 32-63-8402Rtwvmbco identified Cx Nom (U)>100,000 colonies/ml mixed bacterial skin contaminants 2 Days PERFORMED BY: [place] [address] PATHOLOGIST AEROSPACE TECHNICIAN STEFANY HERNANDEZ M.D.NormalHca Florida Sarasota Doctors Hospital Physician GroupComment on above: Performed By: #### CUU #### [place] [address] USAAerobic throat cultureOrdered By: Ness Lemon on 14-46-1072Dqykzduw identified Aer cx Nom (Throat)2 DaysBlanchard Valley Health SystemNo Panel InformationOrdered By: Ness Lemon on 09-06-2025 Quick Strep (POC)[facility] SystemQuick Strep (POC)[facility] SystemThroat Cultureon 33-75-2932Gnwazo cultureModerate Normal Respiratory Sylvie 2 Days PERFORMED BY: [place] [address] PATHOLOGIST AEROSPACE TECHNICIAN STEFANY HERNANDEZ M.D.NormalHca Florida Sarasota Doctors Hospital Physician GroupComment on above: Performed By: #### CUT #### [facility] [address] [place] [address] USAHCG,Qualitative Serumon 05-42-3071YCM,Qualitative Serum NegativeNormalThe [facility] Physician Greene County HospitalComment on above:Result Comment: PERFORMED BY: [place] [address] PATHOLOGIST AEROSPACE TECHNICIAN STEFANY HERNANDZE M.D.Performed By: #### HCGQUAL #### [facility] [address] [place] [address] USAALL CBC WITH AUTO DIFFon 97-78-3539RNVPBMLZE ABSOLUTE AUTO 0NOMS HealthcareBasophils/100 WBC (Bld)0.5 %0.2 - 2.0 %[facility] Eosinophils/100 WBC (Bld)4.2 %0.9 - 7.0 %[facility] CenterErythrocyte distribution width (RBC) [Ratio]13.1 %11.0 - 15.0 %[facility] Health CenterHematocrit (Bld) [Volume fraction]37.5 %36.0 - 48.0 %[facility] CenterHemoglobin (Bld) [Mass/Vol]12.3 g/dL 12.0 - 16.0 g/dLSaint John's Regional Health CenterIMMATURE GRANULOCYTES ABS AUTO0.01NOMS [facility] Immature granulocytes/100 WBC (Bld)0.2 %0.0 - 0.5 %[facility] CenterInterpretation and review of laboratory resultsAbnormalSaint John's Regional Health CenterLYMPHOCYTES ABSOLUTE HTPV8AIOTRusk Rehabilitation CenterLymphocytes/100 WBC (Bld)34.4 %20.5 - 60.0 %[facility] MCH (RBC) [Entitic mass]30.9 pg26.7 - 34.0 pgSaint John's Regional Health CenterMCHC (RBC) [Mass/Vol]32.8 g/dL29.9 - 35.2 g/dLSaint John's Regional Health CenterMCV (RBC) [Entitic vol]94.2 fL 81.0 - 99.0 fLSaint John's Regional Health CenterMONOCYTES ABSOLUTE AUTO0.4N[facility] Monocytes/100 WBC (Bld)6.2 %1.7 - 12.0 %[facility] CenterNEUTROPHILS ABSOLUTE AUTO 3.2NOMS Chillicothe HospitalNeutrophils/100 WBC (Bld)54.5 %43.0 - 75.0 %[facility] Platelet mean volume (Bld) [Entitic vol]9.4 fLLow9.5 - 13.5 fLSaint John's Regional Health CenterTBH EO #0.3NOMS Chillicothe HospitalTBH AED770ZGEW [facility]icothe HospitalTB RBC3.98LowNOMS Chillicothe HospitalTB WBC5.9NOMS [facility]icothe HospitalCLINISYNCNOMS HealthcareIGP,APTIMA HPV,AGE GDLNon 07-05-4861CIE GDLN ACOG TESTINGNote.[facility] HealthcareComment on above:TESTS RESULT FLAG UNITS REF RANGE LAB Clinician Provided Cytology Information Source.............Cervix;Endocervix No. of containers..01 ThinPrep Vial Age Laila LOFTON Nora... 28 FLAG LEGEND: L-Low Normal,H-High Normal,LL-Alert Low,HH-Alert High <-Panic Low,>-Panic High,A-Abnormal,AA-Critical Abnormal Performed at: 01 =G [address] [place] [address] Pau Calvin MD, HPV APTIMANegativeNegativeNOMS HealthcareComment on above:This nucleic acid amplification test detects fourteen high- risk HPV types (16,18,31,33,35,39,45,51,52,56,58,59,66,68) without differentiation. Performed at: =[address] [id number] Card Processing Clerk: Pau Calvin MD, Phone: [phone] Performed at: - [address] [id number] Card Processing Clerk: Pau Calvin MD, Phone: [phone] IGP, APTIMA HPV, RFX 16/18,45Note.NOMS HealthcareComment on above:TESTS RESULT FLAG UNITS REF RANGE LAB DIAGNOSIS: 02 NEGATIVE FOR INTRAEPITHELIAL LESION OR MALIGNANCY. Specimen adequacy: 02 Satisfactory for evaluation. Endocervical and/or squamous metaplastic cells (endocervical component) are present. Performed by: Nicki Saul, Aircraft Machinist Helper ([facility]) . 02 Note: Note 02 The [...] High <-Panic Low,>-Panic High,A-Abnormal,AA-Critical Abnormal Performed at: [address] [address] Pau Calvin MD, BRUSH-SPATULA CERVIX ENDOCERVIX CLINISYNCNOMS HealthcareINR in Platelet poor plasma by Coagulation assayOrdered By: Vicky Gates on 44-00-9955DSK Coag (PPP) [Relative time]INR in Platelet poor plasma by Coagulation assayBlanchard Valley Health SystemComment on above:INR Therapeutic Range A) Pre- and Peroperative OAT started two weeks before surgery. NOT HIP SURGERY: 1.5 - 2.5 HIP SURGERY: 2 - 3B) Primary and secondary prevention of venous THROMBOSIS: 2 - 3C) Active venous thrombosis, pulmonary embolismand prevention of recurrent venous thrombosis: 2 - 3D) Prevention of arterial thromboembolismincluding patients with mechanical heart valves: 3 - 4.5 Prothrombin Time INRon 71-43-9931ARN Coag (PPP) [Relative time]1.1 {INR}Normal [facility] Physician [facility] County HospitalComment on above:Result Comment: INR Therapeutic Range A) [...] heart valves: 3 - 4.5 PERFORMED BY: [place] [address] PATHOLOGIST AEROSPACE TECHNICIAN JULIETA LU M.D.Performed By: #### PT #### [facility] [address] [place], [place] [address] USAPT Coag (PPP) [Time]12.7 sNormal9.0-12.9The [facility] Physician Greene County HospitalComment on above:Result Comment: A hematocrit value greater than 55% may lead to inaccurate results in coagulation testing. Patients having hematocrit values >55% require a special collection tube for coagulation studies. Please contact the laboratory at [phone] for redraw instructions.Performed By: #### PT #### [facility] [address] [place] [address] USAProthrombin time (PT)Ordered By: Vicky Gates on 12-25-2024 PT Coag (PPP) [Time]Prothrombin time (PT)9.0-12.9[facility] SystemComment on above:A hematocrit value greater than 55% may lead to inaccurate results in coagulation testing. Patientshaving hematocrit values >55% require a special collection tube for coagulation studies. Please contact the laboratory at [phone] for redraw instructions. liveron 76-08-5475XY liver [facility] Main [place] [address] [place] [address] Ultrasound Report Signed with Addenda Patient: Radha Hines MR#: [id number] : 1990 Acct:[id number] Age/Sex: 34 / F ADM Date: 12/25/24 Loc: Room: Type: [facility] Attending Dr: Vicky Gates MD Ordering Provider: Vicky Gates MD Date of Service: 12/25/24 US/US liver: K70.31 - Alcoholic cirrhosis of liver with ascites Copies to: Vicky aGtes MD ADDENDUM 1 Addendum requested by the referring clinician. No ascites is noted. Impression dictated by: Emil Da Silva Jr., Aviva01/25/2025 9:20 AM Dictation Location: [facility]--22 Addendum Dictated By: Emil Da Silva Jr, [...] Ishmael Nelson M.D.12/25/2024 10:53 AM Dictation Location: [facility]--17 Tech: Ly Leigh Transcribed By: JOLENE 12/25/24 1053 Dictated By: Ishmael Nelson II, MD 12/25/24 1047 Signed By: 12/25/24 1053[facility] 10-25-2024 Ferritin [Mass/Vol]31 ng/mL8.0 - 252.0 ng/mLNSt. Joseph's Regional Medical Center– MilwaukeeMETRO IRON AND TIBCon 62-40-2696ASR IRON62 ug/dL50.0 - 170.0 ug/dLUniversity Health Truman Medical Center PERCENT IRON QMXQOHZIKO36.1 %[facility] TOTAL IRON BINDING XHYFGOUX880 ug/dL250.0 - 450.0 ug/dLWakeMed Cary HospitalOCCULT BLOOD*on 58-67-3863GZS OCCULT BLOODNegativeSaint [facility] CLINISYNCSaint John's Regional Health CenterALL CBC WITH AUTO DIFFon 69-03-7382PUNZDBLTL ABSOLUTE BXTQ4ZYMASaint John's Regional Health CenterBasophils/100 WBC (Bld)0.3 %0.2 - 2.0 %[facility] Eosinophils/100 WBC (Bld)2.8 %0.9 - 7.0 %[facility] Health CenterErythrocyte distribution width (RBC) [Ratio]12.6 %11.0 - 15.0 %[facility] Health CenterHematocrit (Bld) [Volume fraction]38.6 %36.0 - 48.0 %[facility] Health CenterHemoglobin (Bld) [Mass/Vol]12.8 g/dL 12.0 - 16.0 g/dLMercy Hospital JoplinTURE GRANULOCYTES ABS AUTO0.02NORusk Rehabilitation Center Immature granulocytes/100 WBC (Bld)0.3 %0.0 - 0.5 %[facility] CenterInterpretation and review of laboratory resultsAbnormalSaint John's Regional Health CenterLYMPHOCYTES ABSOLUTE AUTO2.9NORusk Rehabilitation CenterLymphocytes/100 WBC (Bld)37.9 %20.5 - 60.0 %[facility] Psychiatric HospitalH (RBC) [Entitic mass]30.9 pg26.7 - 34.0 pgHawthorn Children's Psychiatric HospitalHC (RBC) [Mass/Vol]33.2 g/dL29.9 - 35.2 g/dLHawthorn Children's Psychiatric HospitalV (RBC) [Entitic vol]93.2 fL 81.0 - 99.0 fLSaint John's Regional Health CenterMONOCYTES ABSOLUTE AUTO0.4NORusk Rehabilitation Center Monocytes/100 WBC (Bld)5.4 %1.7 - 12.0 %[facility] Health CenterNEUTROPHILS ABSOLUTE AUTO 4.1NOMS HealthcareNeutrophils/100 WBC (Bld)53.3 %43.0 - 75.0 %[facility] Platelet mean volume (Bld) [Entitic vol]9.1 fLLow9.5 - 13.5 fLNOMS HealthcareTBH EO #0.2NOMS HealthcareTBH [id number] HealthcareTBH RBC4.14LowNOMS Chillicothe HospitalTBH WBC7.6NOMS HealthcareCLINISYNCNOMS HealthcareUS RIGHT UPPER QUADRANTon 86-74-7729[place]xpWay[place] [address] Ultrasound Report Signed Patient: RADHA HINES MR#: [id number] : 1990 Acct:[id number] Age/Sex: 33 / F ADM Date: 05/01/24 Loc: US Attending Dr: Shaikh Jeramy Cash Ordering Physician: Shaikh Shreya Deshpande Date of Service: 05/01/24 Procedure(s): US right upper quadrant Accession Number(s): [id number] cc: Shaikh Shreya Deshpande [place] [address] Patient Name: RADHA HINES MRN: [id number] date: 1990 Sex: F Assigned Patient Location: Current Patient Location: Accession/Order Number: [id number] Exam Date: 05/01/2024 10:15 Report Date: 05/03/2024 [...] Kyle Benavides M.D. Signed By: 05/03/2437 DD/ TD/TT: Foreign Collection Clerk:TBHRadiology, Radiologist, MD - 05/03/2024 [place] [address] Ultrasound Report Signed Patient: RADHA HINES MR#: [id number] : 1990 Acct:[id number] Age/Sex: 33 / F ADM Date: 05/01/24 Loc: US Attending Dr: Shaikh Jeramy Cash Ordering Physician: Shaikh Shreya Deshpande Date of Service: 05/01/24 Procedure(s): US right upper quadrant Accession Number(s): [id number] cc: Shaikh Shreya Deshpande [address] [place] [address] Patient Name: RADHA HINES MRN: [facility]:[id number] date: 1990 Sex: F Assigned Patient Location: US Current Patient Location: Accession/Order Number: [id number] Exam Date: 05/01/2024 10:15 Report Date: 05/03/2024 [...] Dictated By: Kyle Benavides M.D. Signed By: 05/03/24836 DD/ 3 TD/TT: Foreign Collection Clerk: SALLIE HealthcareRadiology Study observation (narrative)NOMAlexandre HealthcareUS RIGHT UPPER QUADRANTOrdered By: Radiologist Radiology on 59-39-1689NKIO [facility] Work Phone: No Panel InformationOrdered By: Ann Perera on 60-18-7687Pyjpu Meghna (POC)[facility] Health SystemUS RIGHT UPPER QUADRANTon 07-80-6454EqlWay[place] [address] Ultrasound Report Signed Patient: RADHA HINES MR#: [id number] : 1990 Acct:[id number] Age/Sex: 33 / F ADM Date: 01/03/24 Loc: US Attending Dr: Carlos AlbertoStaff Physician Cash Ordering Physician: Armando Foster M.D. Date of Service: 01/03/24 Procedure(s): US right upper quadrant Accession Number(s): [id number] cc: Shaikh Shreya Deshpande; Armando Foster M.D. [address] [address] Patient Name: RADHA HINES MRN: [id number] date: 1990 Sex: F Assigned Patient Location: US Current Patient Location: US Accession/Order Number: [id number] Exam Date: 01/03/2024 08:15 Report Date: 01/03/2024 [...] M.D. Signed By: 01/03/24921 DD/ 9 TD/TT: Foreign Collection Clerk:TBHRadiology, Radiologist, - 01/03/2024 [place] [address] Ultrasound Report Signed Patient: RADHA HINES MR#: [id number] : 1990 Acct:[id number] Age/Sex: 33 / F ADM Date: 01/03/24 Loc: US Attending Dr: Carlos AlbertoStaff Physician Cash Ordering Physician: Armando Foster M.D. Date of Service: 01/03/24 Procedure(s): US right upper quadrant Accession Number(s): [id number] cc: Shaikh Shreya Deshpande; Armando Foster M.D. The [place] [id number] Patient Name: RADHA HINES MRN: [facility]:[id number] date: 1990 Sex: F Assigned Patient Location: US Current Patient Location: US Accession/Order Number: [id number] Exam Date: 01/03/2024 08:15 Report Date: 01/03/2024 [...] M.D. Signed By: 01/03/24921 DD/ 9 TD/TT: Foreign Collection Clerk: SALLIE HealthcareRadiology Study observation (narrative)SALLIE JesusUS RIGHT UPPER QUADRANTOrdered By: Radiologist Radiology on 81-47-2249YVRQ Healthcare Work Phone: HCG ( test) IA.rapid Ql (U)Ordered By: Vicky Gates on 32-88-9227GIB ( test) Ql (U)NegativeFirNationwide Children's HospitalXR foot RT min 3V*on 98-72-8493NS foot RT min 3V*[facility] WESTNosoutheast [facility] [employer] Other XR foot RT min 3V*[facility] [employer] Other XR foot RT min 3V*[address] [facility] [employer] Other XR foot RT min 3V*MARGARITA Schreiber [address]KptihAstria Sunnyside Hospital [employer] Other XR foot RT min 3V*XRay [facility] [place] [employer] Other XR foot RT min 3V*SignedAstria Sunnyside Hospital [employer] Other XR foot RT min 3V*Patient: Radha Hines MR#: [id number] [place] [employer] Other XR foot RT min 3V*[address] [place] [address] [employer] Other XR foot RT min 3V*: 1990 Acct:[id number] [place] [employer] Other XR foot RT min 3V*Age/Sex: 32 / F ADM Date: 06/16/23 [facility] [employer] Other XR foot RT min 3V*Loc: XDUCLY Room: Type: [facility] [employer] Other XR foot RT min 3V*Attending Dr: Ann Perera [facility] [employer] Other XR foot RT min 3V*Copies to: Ann Perera [facility] [employer] Other XR foot RT min 3V*Ordering Provider: Ann Perera [facility] [employer] Other XR foot RT min 3V*Date of Service: 06/16/23[place] [employer] Other XR foot RT min 3V* XR/XR foot RT min 3V*: Right foot painBarnstable [employer] Other XR foot RT min 3V*XR foot RT min 3V* 06/16/2023 5:22 PM [place] [employer] Other XR foot RT min 3V*SIGNS AND SYMPTOMS: Pain in lateral aspect of the right foot/fifth metatarsalBarnstable [employer] Other XR foot RT min 3V*PROTOCOL: Frontal, lateral, and oblique radiographs of the right footBarnstable [employer] Other XR foot RT min 3V*COMPARISON: 05/04/2021[place] [employer] Other XR foot RT min 3V*FINDINGS:[employer] Other XR foot RT min 3V*The bones are in anatomic alignment. There is no evidence of fracture or dislocation. The [facility] [employer] Other XR foot RT min 3V*spaces are preserved. No significant soft tissue swelling. There is an os perineum along the [facility] [employer] Other XR foot RT min 3V*aspect of the midfoot. There is minimal plantar surface calcaneal spurring.[employer] Other XR foot RT min 3V* XR/XR foot RT min 3V*[place] [employer] Other XR foot RT min 3V*IMPRESSION:[employer] Other XR foot RT min 3V*No acute bony injury.[employer] Other XR foot RT min 3V*Impression dictated by: Ishmael Nelson M.D.06/16/2023 5:39 PMNssm health cardinal [facility] [employer] Other XR foot RT min 3V*Dictation Location: [id number]-39Fzigj [employer] Other XR foot RT min 3V*Transcribed By: JOLENE 06/16/23 3804 [place] [employer] Other XR foot RT min 3V*Dictated By: Ishmael Nelson II, MD 06/16/[address] [place] [address] [employer] Other XR foot RT min 3V*Signed By:[facility] [employer] Other XR foot RT min 3V*06/16/[address] [place] [address] [employer] Other CBC AUTO DIFFon 39-22-7244ZRTZ #0.1 103/ulNormal 0.0-0.1The [facility] Medical CenterComment on above:Performed By: #### CBC #### [facility] [address] [address] [address] Belkis RayBasophils/100 WBC (Bld)0.9 %Normal0.2-2.0[facility] Comment on above:Performed By: #### CBC #### [facility] [address] [place] [address] [address] Belkis Rand #0.2 103/ulNormal0.0-0.7The [facility] Medical CenterComment on above: Performed By: #### CBC #### [facility] [address] [address] [address] Belkis Hydeosinophils/100 WBC (Bld)2.8 %Normal0.9-7.0[facility] Comment on above:Performed By: #### CBC #### [facility] [address] [address] [address] Belkis Hyderythrocyte distribution width (RBC) [Ratio]12.6 %Poabwl76.0-15.0 The [facility] Medical CenterComment on above:Performed By: #### CBC #### [facility] [address] [address] [address] Belkis RayHematocrit (Bld) [Volume fraction]37.6 %Rjmwst32.0-48.0The [facility] Medical CenterComment on above:Performed By: #### CBC #### [facility] [address] [address] [address] Belkis RayHemoglobin (Bld) [Mass/Vol]12.7 g/oBYqtjsn44.0-16.0The [facility] Medical CenterComment on above:Performed By: #### CBC #### [facility] [address] [place] [address] Dr. Belkis Maloney #0.02 10e3/ulNormal0.00-0.03The [facility] Medical CenterComment on above:Performed By: #### CBC #### [facility] [address] [place] [address] Dr. Belkis Maloney %0.3 %Normal0.0-0.5The [facility] Medical CenterComment on above: Performed By: #### CBC #### [facility] [address] [place] [address] Dr. Belkis Elmore #2.7 103/ulNormal1.2-3.8The [facility] Medical CenterComment on above:Performed By: #### CBC #### [facility] [address] [place] [address] Dr. Belkis Mercerhocytes/100 WBC (Bld)42.7 %Wbfsln10.5-60.0The [facility] Medical CenterComment on above:Performed By: #### CBC #### [facility] [address] [place] [address] Dr. Belkis Queen DIFF REQNONormalThe [facility] Medical CenterComment on above: Performed By: #### CBC #### [facility] [address] [place] [address] Dr. Belkis Garcia (RBC) [Entitic mass]31.6 gcUcacxr92.7-34.0The [facility] Medical CenterComment on above:Performed By: #### CBC #### [facility] [address] [place] [address] Dr. Belkis Garcia (RBC) [Mass/Vol]33.8 g/jCCzwyoj70.9-35.2The [facility] Medical CenterComment on above:Performed By: #### CBC #### [facility] [address] [place] [address] Dr. Belkis Garcia (RBC) [Entitic vol]93.5 bUDtkovx20.0-99.0The [facility] Medical CenterComment on above:Performed By: #### CBC #### [facility] [address] [place] [address] Dr. Belkis Whitley #0.4 103/ulNormal0.3-0.8The [facility] Medical CenterComment on above:Performed By: #### CBC #### [facility] [address] [place] [address] Dr. Belkis Khanocytes/100 WBC (Bld)7.0 %Normal1.7-12.0The [facility] Comment on above:Performed By: #### CBC #### [facility] [address] [place] [address] Dr. Belkis Torres #2.9 103/ulNormal1.4-6.5The [facility] Medical CenterComment on above:Performed By: #### CBC #### [facility] [address] [place] [address] Dr. Belkis Smithutrophils/100 WBC (Bld)46.3 %Utjnib36.0-75.0The [facility] Medical CenterComment on above:Performed By: #### CBC #### [facility] [address] [place] [address] Dr. Belkis Izaguirre mean volume (Bld) [Entitic vol]9.4 fLCritically low 9.5-13.5The [facility] CenterComment on above:Performed By: #### CBC #### [facility] [address] [place] [address] Dr. Belkis SchreiberT149 103/ulCritically jto648-244Tle [facility] CenterComment on above:Performed By: #### CBC #### [facility] [address] [place] [address] Dr. Belkis LloydC4.02 106/ulCritically low4.20-5.40The [facility] Medical CenterComment on above:Performed By: #### CBC #### [facility] [address] [place] [address] Dr. Belkis RayWBC6.3 103/ulNormal4.0-11.0The [facility] Medical CenterComment on above: Performed By: #### CBC #### [facility] [address] [place] [address] Dr. Belkis Meng PROFILEon 54-67-1926Eopdjup [Mass/Vol]3.6 g/dLNormal3.4-5.0 The [facility] Medical CenterComment on above:Performed By: #### TSH, PREGQNT #### [facility] [address] [place] [address] Dr. Belkis RayAlbumin/Globulin [Mass ratio]1.0 {ratio}NormalThe [facility] on above:Performed By: #### TSH, PREGQNT #### [facility] [address] [place] [address] Dr. Belkis Abebe [Catalytic activity/Vol]61 U/IYlyslz89-447Dhp [facility] CenterComment on above:Performed By: #### TSH, PREGQNT #### [facility] [address] [place] [address] Dr. Belkis Marroquin [Catalytic activity/Vol]35 U/RWanlox84-32Rxa [facility] on above:Performed By: #### TSH, PREGQNT #### [facility] [address] [place] [address] Dr. Belkis Krishnan [Catalytic activity/Vol]27 U/GMdkcza55-37Fgb [facility] on above:Performed By: #### TSH, PREGQNT #### [facility] [address] [place] [address] Dr. Belkis Rosenthal, CONJUGATED0.2 mg/dLNormal0.0-0.2[facility] Comment on above:Performed By: #### TSH, PREGQNT #### [facility] [address] [place] [address] Dr. Belkis Rollins [Mass/Vol]0.4 mg/dLNormal0.2-1.0[facility] Comment on above:Performed By: #### TSH, PREGQNT #### [facility] [address] [address] [address] Belkis RayGlobulin (S) [Mass/Vol]3.6 g/dLNormalThe [facility] CenterComment on above:Performed By: #### TSH, PREGQNT #### [facility] [address] [place] [address] Dr. Belkis RayProtein [Mass/Vol]7.2 g/dLNormal6.4-8.2[facility] Comment on above:Performed By: #### TSH, PREGQNT #### [facility] [address] [place] [address] Dr. Belkis RayPROF CHEM 8 (BAS METB)on 76-40-3768Sddqd gap [Moles/Vol]12.3 mmol/LNormalThe [facility] CenterComment on above:Performed By: #### TSH, PREGQNT #### [facility] [address] [place] [address] Dr. Belkis RayCalcium [Mass/Vol]8.9 mg/dLNormal8.5-10.1[facility] Comment on above:Performed By: #### TSH, PREGQNT #### [facility] [address] [place] [address] Dr. Belkis RayChloride [Moles/Vol]105 mmol/XNfeete14-984GqnSelect [facility]ty [facility] Comment on above:Performed By: #### TSH, PREGQNT #### [facility] [address] [place] [address] Dr. Belkis RayCO2 [Moles/Vol]27.6 mmol/SVpxwma03.0-32.0[facility] Comment on above:Performed By: #### TSH, PREGQNT #### [facility] [address] [place] [address] Dr. Belkis RayCreatinine [Mass/Vol]0.57 mg/dLNormal0.55-1.02The [facility] CenterComment on above:Performed By: #### TSH, PREGQNT #### [facility] [address] [place] [address] Dr. Yilan ChangEGFR-AF SUDANESE>60Normal>=60The [facility] CenterComment on above:Performed By: #### TSH, PREGQNT #### [facility] [address] [place] [address] Dr. Belkis HydeGFR-NON AF SUDANESE>60Normal>=60The [facility] CenterComment on above:Performed By: #### TSH, PREGQNT #### [facility] [address] [place] [address] Dr. Belkis RayGlucose [Mass/Vol]89 mg/nNZrpaah52-514Clx [facility] Comment on above:Performed By: #### TSH, PREGQNT #### [facility] [address] [place] [address] Dr. Belkis RayPotassium [Moles/Vol]3.9 mmol/LNormal3.5-5.1[facility] Comment on above:Performed By: #### TSH, PREGQNT #### [facility] [address] [place] [address] Dr. Belkis Pyledium [Moles/Vol]141 mmol/LJgravg776-324HrkSelect Medical Specialty Hospital [facility] [place] Comment on above:Performed By: #### TSH, PREGQNT #### [facility] [address] [place] [address] Dr. Belkis RayUrea nitrogen [Mass/Vol]12.0 mg/dLNormal7.0-18.0[facility] ColumbusComment on above:Performed By: #### TSH, PREGQNT #### [facility] [address] [place] [address] Dr. Belkis Benson nitrogen/Creatinine [Mass ratio]21.1 mg/mgNormalThe [facility] CenterComment on above:Performed By: #### TSH, PREGQNT #### [facility] [address] [place] [address] Dr. Belkis RayPROTIMEon 99-80-7915ASU Coag (PPP) [Relative time]1.09 {INR} NormalThe [facility] Medical CenterComment on above:Performed By: #### TSH, PREGQNT #### [facility] [address] [address] [address] Belkis WhitakerR GUIDELINESSEE BELOWTriHealth Bethesda Butler HospitalComment on above:Result Comment: DESIRED INR: 2.0 - 3.0 CONDITIONS NOT LISTED BELOW 2.5 - 3.5 FOR PROSTHETIC HEART VALVE REPLACEMENT 2.5 - 3.5 RECURRENT THROMBOSIS Performed By: #### TSH, PREGQNT #### [facility] [id number] Belkis RayPT Coag (PPP) [Time]11.5 sNormal9.0-11.6The [facility] Comment on above:Performed By: #### TSH, PREGQNT #### [facility] [address] [address] [address] Belkis RayNM HEPATOBILIARY SCAN W EFon [id number] HEPATOBILIARY SCAN W EF EXAMINATION: NM HEPATOBILIARY [...] Electronically authenticated by: RODNEY JOHN Date: 2023-02-14 15:07[facility] HospitalCOVID + FLU Quick Testingon 87-69-9712YEYN-CoV-2 (COVID-19) RNA HOLDEN+probe Ql (Unsp spec)NegativeMicroPoint Bioscience, Inc. Other COVID + FLU Quick TestingNegativeMicroPoint Bioscience, Inc. Other Quick Strepon 01-18-2023S. pyogenes Org specific cx Ql (Throat)NegativeMicroPoint Bioscience, Inc. Other Siomara Klein [employer] Other US PELVIS AND TRANSVAGon [id number] PELVIS AND TRANSVAGEXAM: Pelvic ultrasound HISTORY: . [...] Electronically authenticated by: RODNEY MEJIA Date: 2023-01-07 08:12[facility] HospitalANTI-MULLERIAN HORMONEon 39-27-2140Fscm-Mullerian Hormone (AMH) 4.29 ng/mLNTrinity Health System West CampusComment on above:Result Comment: For assays employing antibodies, the possibility exists for interference by heterophile antibodies in the samples.1 1.Lucho Schwartz. Interferences in Immunoassays - still a threat. Clin. Chem. 2000; 46: 4840-0262. This test was developed and its performance characteristics determined by [employer]. It has not been cleared or approved by the Food and Drug Administration. Reference Range: Females 31 - 35y: 0.66 - 8.75 Median 3.00 AMH concentrations of >= 1.06 ng/mL is correlated with a better response to ovarian stimulation, produced more retrievable oocytes and higher odds of live according to Anabell et al. Fertility and Sterility. 2010: 94:3521-3827. The current AMH test method correlates with [...] AMH-secreting ovarian tumor.Performed By: #### DARREL #### [facility] [address] [place] [address] Dr. Belkis RayUS PELVIS AND TRANSVAGon [id number] PELVIS AND TRANSVAG EXAMINATION: US PELVIS AND [...] Electronically authenticated by: KYLE BENAVIDES Date: 2022-11-26 08:06NormalThCleveland Clinic [facility] L[facility] HospitalCB AUTO DIFFon [id number] #0.0 103/ulNormal0.0-0.1The [facility] Medical CenterComment on above:Performed By: #### CBC #### [facility] [address] [address] [address] Belkis RayBasophils/100 WBC (Bld)0.4 %Normal0.2-2.0[facility] Comment on above:Performed By: #### CBC #### [facility] [address] [address] [address] Belkis Rand #0.2 103/ulNormal0.0-0.7The [facility] Medical CenterComment on above: Performed By: #### CBC #### [facility] [address] [address] [address] Belkis Hydeosinophils/100 WBC (Bld)2.3 %Normal0.9-7.0[facility] Comment on above:Performed By: #### CBC #### [facility] [address] [address] [address] Belkis Hyderythrocyte distribution width (RBC) [Ratio]13.0 %Ercxra51.0-15.0 [facility] ColumbusComment on above:Performed By: #### CBC #### [facility] [address] [address] [address] Belkis RayHematocrit (Bld) [Volume fraction]35.8 %Critically low36.0-48.0 The [facility] Medical CenterComment on above:Performed By: #### CBC #### [facility] [address] [address] [address] Belkis RayHemoglobin (Bld) [Mass/Vol]12.7 g/bQEbhhaj14.0-16.0[facility] - ColumbusComment on above:Performed By: #### CBC #### [facility] [address] [address] [address] Belkis Maloney #0.02 10e3/ulNormal0.00-0.03The [facility] Medical CenterComment on above:Performed By: #### CBC #### [facility] [address] [place] [address] Dr. Belkis Maloney %0.2 %Normal0.0-0.5The [facility] Medical CenterComment on above: Performed By: #### CBC #### [facility] [address] [place] [address] Dr. Belkis Elmore #2.5 103/ulNormal1.2-3.8The [facility] Medical CenterComment on above:Performed By: #### CBC #### [facility] [address] [place] [address] Dr. Belkis Mercerhocytes/100 WBC (Bld)26.4 %Ehxiui07.5-60.0The [facility] Medical CenterComment on above:Performed By: #### CBC #### [facility] [address] [place] [address] Dr. Belkis Queen DIFF REQNONormalThe [facility] Medical CenterComment on above: Performed By: #### CBC #### [facility] [address] [place] [address] Dr. Belkis Castle (RBC) [Entitic mass]31.8 atTukomi95.7-34.0The [facility] Medical CenterComment on above:Performed By: #### CBC #### [facility] [address] [place] [address] Dr. Belkis Garcia (RBC) [Mass/Vol]35.5 g/dLCritically high29.9-35.2The [facility] CenterComment on above:Performed By: #### CBC #### [facility] [address] [place] [address] Dr. Belkis Garcia (RBC) [Entitic vol]89.5 gARngqvh51.0-99.0The [facility] Medical CenterComment on above:Performed By: #### CBC #### [facility] [address] [place] [address] Dr. Belkis Whitley #0.6 103/ulNormal0.3-0.8The [facility] Medical CenterComment on above:Performed By: #### CBC #### [facility] [address] [place] [address] Dr. Belkis Khanocytes/100 WBC (Bld)6.3 %Normal1.7-12.0[facility] Comment on above:Performed By: #### CBC #### [facility] [address] [place] [address] Dr. Belkis SmithUT #6.0 103/ulNormal1.4-6.5The [facility] CenterComment on above:Performed By: #### CBC #### [facility] [address] [place] [address] Dr. Belkis Smithutrophils/100 WBC (Bld)64.4 %Ccqdcb72.0-75.0The [facility] Medical CenterComment on above:Performed By: #### CBC #### [facility] [address] [place] [address] Dr. Belkis Jacksonlet mean volume (Bld) [Entitic vol]9.0 fLCritically low 9.5-13.5The [facility] Medical CenterComment on above:Performed By: #### CBC #### [facility] [address] [place] [address] Dr. Belkis RayPLT173 103/tiTlhtbo475-577Odf [facility] CenterComment on above: Performed By: #### CBC #### [facility] [address] [place] [address] Dr. Belkis RayRBC4.00 106/ulCritically low4.20-5.40The [facility] Medical CenterComment on above:Performed By: #### CBC #### [facility] [address] [place] [address] Dr. Belkis RayWBC9.3 103/ulNormal4.0-11.0The [facility] CenterComment on above: Performed By: #### CBC #### [facility] [address] [place] [address] Dr. Belkis Corcoran T4on 51-16-3379Hseo T4 [Mass/Vol]0.80 ng/dLNormal0.76-1.46 [facility] on above:Performed By: #### FT4 #### [facility] [address] [place] [address] Dr. Belkis RayGLYCOHEMOGLOBIN A1Con [id number] RECOMMENDATIONSEE BELOWNormal The [facility] CenterComhillsdale hospital on above:Result Comment: ADA RECOMMENDED LIMIT 4.0 - 6.0 ADA THERAPEUTIC TARGET < 7.0 ACTION SUGGESTED > 7.0Performed By: #### TSH, PREGQNT #### [facility] [address] [place] [address] Dr. Belkis RayGlucose [Mass/Vol]103 mg/dLTriHealth Bethesda Butler HospitalComhillsdale hospital on above:Performed By: #### TSH, PREGQNT #### [facility] [address] [place] [address] Dr. Belkis RayHbA1c (Bld) [Mass fraction]5.2 %Normal4.5-6.2[facility] on above:Performed By: #### TSH, PREGQNT #### [facility] [address] [place] [address] Dr. Belkis Gamboa ACOG PANEL 2: 30 to 65on 11-25-2022..NormalKettering Health Springfield on above:Result Comment: Performed at: WBPerformed By: #### [id number] #### [facility] [address] [place] [address] Dr. Belkis Nguyen Gdln ACOG Hhpyycz06-41VyywgaEioBarberton Citizens Hospital on above:Performed By: #### [id number] #### [facility] [address] [place] [address] Dr. Belkis RayDIAGNOSIS:CommentToledo Hospital on above: Result Comment: NEGATIVE FOR INTRAEPITHELIAL LESION OR MALIGNANCY. Performed at: WBPerformed By: #### [id number] #### [facility] [address] [place] [address] Dr. Belkis RayHPHemal AptimaNegativeNormalNegativeThe [facility] on above:Result Comment: This nucleic acid amplification test detects fourteen high-risk HPV types (16,18,31,33,35,39,45,51,52,56,58,59,66,68) without differentiation. Performed at: =GPerformed By: #### [id number] #### [facility] [address] [place] [address] Dr. Belkis RayHPV Genotype ReflexCommentNoBarberton Citizens Hospital on above:Result Comment: Criteria not met, HPV Genotype not performed. Performed at: WBPerformed By: #### [id number] #### [address] [address] [address] Belkis RayMethodology:CommentNoBarberton Citizens Hospital on above: Result Comment: This liquid based ThinPrep(R) pap test was screened with the use of an image guided system. Performed at: WBPerformed By: #### [id number] #### [address] [address] Dr[address] Belkis RayNote:CommentToledo Hospital on above:Result Comment: The Pap smear is a screening test designed to aid in the detection of premalignant and malignant conditions of the uterine cervix. It is not a diagnostic procedure and should not be used as the sole means of detecting cervical cancer. Both false-positive and false-negative reports do occur. . Performed at: WBPerformed By: #### [id number] #### [facility] [address] [place] [address] Dr. Belkis RayPerformed by:CommentNoBarberton Citizens Hospital on above: Result Comment: Kaur Frazier, Pr Intern (ASCP) Performed at: WBPerformed By: #### [id number] #### [address] [address] Dr[address] Belkis RaySpecimeagus adequacy:CommentToledo Hospital on above:Result Comment: Satisfactory for evaluation. Endocervical and/or squamous metaplastic cells (endocervical component) are present. Performed at: WBPerformed By: #### [id number] #### [facility] [address] [place] [address] Dr. Belkis Cline QUANT HCGon 07-11-2796UEA QUANT<1NormalThe [facility] Comment on above:Performed By: #### TSH, PREGQNT #### [facility] [address] [place] [address] Dr. Belkis Truong RANGESEE [facility] Luther[facility] HospitalComment on above: Result Comment: 5-50 0.2-1 WEEK 50-500 1-2 WEEKS 100-5,000 2-3 WEEKS 500-10,000 3-4 WEEKS 1,000-50,000 4-5 WEEKS 10,000-100,000 5-6 WEEKS 15,000-200,000 6-8 WEEKS 10,000-100,000 2-3 MONTHSPerformed By: #### TSH, PREGQNT #### [facility] [address] [place] [address] Dr. Belkis RayPROTIMEon 12-29-0131QST Coag (PPP) [Relative time]1.11 {INR} NormalSelect Medical Specialty Hospital - ColumbusComment on above:Performed By: #### TSH, PREGQNT #### [facility] [address] [place] [address] Dr. Belkis Avina GUIDELINESE [facility] HospitalComment on above:Result Comment: DESIRED INR: 2.0 - 3.0 CONDITIONS NOT LISTED BELOW 2.5 - 3.5 FOR PROSTHETIC HEART VALVE REPLACEMENT 2.5 - 3.5 RECURRENT THROMBOSIS Performed By: #### TSH, PREGQNT #### [facility] [address] [place] [address] Dr. Belkis RayPT Coag (PPP) [Time]11.9 sCritically high9.0-11.6The [facility] on above:Performed By: #### TSH, PREGQNT #### [facility] [address] [place] [address] Dr. Belkis Greenfield [id number] Coag (Bld) [Time]30.3 zIybogh75.3-36.2The [facility] CenterComment on above:Performed By: #### TSH, PREGQNT #### [facility] [address] [place] [address] Dr. Belkis Díaz 30-08-2536EPJ9.129 uIU/mLNormal0.358-3.740The [facility] CenterComment on above:Performed By: #### TSH, PREGQNT #### [facility] [address] [place] [address] Dr. Belkis Johnson Strepon 10-24-2022. pyogenes Org specific cx Ql (Throat) NegativeMicroPoint Bioscience, Inc. Other quick StrepMicroPoint Bioscience, Inc. Other [facility] AUTO DIFFon [id number] #0.1 103/ulNormal 0.0-0.1[facility] - ColumbusComment on above:Performed By: #### CBC #### [facility] [address] [place] [address] Dr. Belkis Pantojasophils/100 WBC (Bld)0.7 %Normal0.2-2.0[facility] Comment on above:Performed By: #### CBC #### [facility] [address] [place] [address] Dr. Belkis Rand #0.3 103/ulNormal0.0-0.7The [facility] CenterComment on above: Performed By: #### CBC #### [facility] [address] [place] [address] Dr. Belkis Hydeosinophils/100 WBC (Bld)3.5 %Normal0.9-7.0The [facility] Comment on above:Performed By: #### CBC #### [facility] [address] [place] [address] Dr. Belkis Hyderythrocyte distribution width (RBC) [Ratio]13.2 %Huwlul35.0-15.0 The [facility] Medical CenterComment on above:Performed By: #### CBC #### [facility] [address] [place] [address] Dr. Belkis RayHematocrit (Bld) [Volume fraction]37.3 %Qdjsyc45.0-48.0The [facility] CenterComment on above:Performed By: #### CBC #### [facility] [address] [place] [address] Dr. Belkis RayHemoglobin (Bld) [Mass/Vol]12.6 g/fADtzjbo90.0-16.0The [facility] CenterComment on above:Performed By: #### CBC #### [facility] [address] [place] [address] Dr. Belkis RayIG #0.02 10e3/ulNormal0.00-0.03The [facility] CenterComment on above:Performed By: #### CBC #### [facility] [address] [place] [address] Dr. Belkis RayIG %0.3 %Normal0.0-0.5The [facility] CenterComment on above: Performed By: #### CBC #### [facility] [address] [place] [address] Dr. Belkis MercerH #3.0 103/ulNormal1.2-3.8The [facility] CenterComment on above:Performed By: #### CBC #### [facility] [address] [place] [address] Dr. Belkis Rodriguezmphocytes/100 WBC (Bld)41.4 %Swikxc63.5-60.0The [facility] CenterComment on above:Performed By: #### CBC #### [facility] [address] [place] [address] Dr. Belkis RayMANUAL DIFF REQNONormalThe [facility] CenterComment on above: Performed By: #### CBC #### [facility] [address] [place] [address] Dr. Belkis Castle (RBC) [Entitic mass]31.3 yeBfaiwo56.7-34.0The [facility] CenterComment on above:Performed By: #### CBC #### [facility] [address] [place] [address] Dr. Belkis GarciaHC (RBC) [Mass/Vol]33.8 g/tKCcfxuh63.9-35.2The [facility] CenterComment on above:Performed By: #### CBC #### [facility] [address] [address] [address] Belkis GarciaV (RBC) [Entitic vol]92.8 nTCzlgmw63.0-99.0The [facility] CenterComment on above:Performed By: #### CBC #### [facility] [address] [address] [address] Belkis Whitley #0.5 103/ulNormal0.3-0.8The [facility] Medical CenterComment on above:Performed By: #### CBC #### [facility] [address] [address] [address] Belkis Khanocytes/100 WBC (Bld)6.3 %Normal1.7-12.0The [facility] Comment on above:Performed By: #### CBC #### [facility] [address] [address] [address] Belkis Torres #3.5 103/ulNormal1.4-6.5The [facility] CenterComment on above:Performed By: #### CBC #### [facility] [address] [address] [address] Belkis Smithutrophils/100 WBC (Bld)47.8 %Xidhvz19.0-75.0The [facility] CenterComment on above:Performed By: #### CBC #### [facility] [address] [address] [address] Belkis Jacksonlet mean volume (Bld) [Entitic vol]9.4 fLCritically low 9.5-13.5The [facility] CenterComment on above:Performed By: #### CBC #### [facility] [address] [address] [address] Belkis RayPLT169 103/wzIngigu442-398Qry [facility] CenterComment on above: Performed By: #### CBC #### [facility] [address] [address] [address] Belkis RayRBC4.02 106/ulCritically low4.20-5.40The [facility] CenterComment on above:Performed By: #### CBC #### [facility] [address] [address] [address] Belkis RayWBC7.4 103/ulNormal4.0-11.0The [facility] CenterComment on above: Performed By: #### CBC #### [facility] [address] [place] [address] Dr. Belkis RayPROF CHEM 8 (BAS METB)on 32-39-6815Mxwct gap [Moles/Vol]11.5 mmol/LNormalThe [facility] CenterComment on above:Performed By: #### TSH, PREGQNT #### [facility] [address] [place] [address] Dr. Belkis RayCalcium [Mass/Vol]9.1 mg/dLNormal8.5-10.1The [facility] Comment on above:Performed By: #### TSH, PREGQNT #### [facility] [address] [place] [address] Dr. Belkis RayChloride [Moles/Vol]103 mmol/UKjizbw22-798Axz [facility] Comment on above:Performed By: #### TSH, PREGQNT #### [facility] [address] [address] [address] Belkis RayCO2 [Moles/Vol]26.4 mmol/CSurcsf38.0-32.0The [facility] Comment on above:Performed By: #### TSH, PREGQNT #### [facility] [address] [place] [address] Dr. Belkis RayCreatinine [Mass/Vol]0.58 mg/dLNormal0.55-1.02The [facility] CenterComment on above:Performed By: #### TSH, PREGQNT #### [facility] [address] [place] [address] Dr. Tamayo ChangEGFR-AF SUDANESE>60Normal>=60The [facility] CenterComment on above:Performed By: #### TSH, PREGQNT #### [facility] [address] [place] [address] Dr. Belkis HydeGFR-NON AF SUDANESE>60Normal>=60The [facility] CenterComment on above:Performed By: #### TSH, PREGQNT #### [facility] [address] [place] [address] Dr. Belkis RayGlucose [Mass/Vol]85 mg/nYQmxpjm78-766Hwf [facility] Comment on above:Performed By: #### TSH, PREGQNT #### [facility] [address] [place] [address] Dr. Belkis RayPotassium [Moles/Vol]3.9 mmol/LNormal3.5-5.1[facility] Comment on above:Performed By: #### TSH, PREGQNT #### [facility] [address] [place] [address] Dr. Belkis Pyledium [Moles/Vol]137 mmol/XUuefqw912-380QnqSelect Medical Specialty Hospital [facility] [place] Comment on above:Performed By: #### TSH, PREGQNT #### [facility] [address] [place] [address] Dr. Belkis RayUrea nitrogen [Mass/Vol]11.0 mg/dLNormal7.0-18.0[facility] - ColumbusComment on above:Performed By: #### TSH, PREGQNT #### [facility] [address] [place] [address] Dr. Belkis Benson nitrogen/Creatinine [Mass ratio]19.0 mg/mgNormalThe [facility] CenterComment on above:Performed By: #### TSH, PREGQNT #### [facility] [address] [place] [address] Dr. Belkis Díaz 14-53-1224LAV4.286 uIU/mLNormal0.358-3.740The [facility] CenterComment on above:Performed By: #### TSH, PREGQNT #### [facility] [address] [address] [address] Belkis Vivas AUTO DIFFon [id number] #0.0 103/ulNormal0.0-0.1The [facility] CenterComment on above:Performed By: #### CBC #### [facility] [address] [place] [address] Dr. Belkis RayBasophils/100 WBC (Bld)0.5 %Normal0.2-2.0The [facility] Comment on above:Performed By: #### CBC #### [facility] [address] [place] [address] Dr. Belkis Rand #0.2 103/ulNormal0.0-0.7The [facility] CenterComment on above: Performed By: #### CBC #### [facility] [address] [place] [address] Dr. Belkis Hydeosinophils/100 WBC (Bld)2.2 %Normal0.9-7.0The [facility] Comment on above:Performed By: #### CBC #### [facility] [address] [place] [address] Dr. Belkis Hyderythrocyte distribution width (RBC) [Ratio]13.7 %Qhuoav39.0-15.0 The [facility] CenterComment on above:Performed By: #### CBC #### [facility] [address] [place] [address] Dr. Belkis RayHematocrit (Bld) [Volume fraction]41.1 %Nnwzcd15.0-48.0The [facility] CenterComment on above:Performed By: #### CBC #### [facility] [address] [place] [address] Dr. Belkis RayHemoglobin (Bld) [Mass/Vol]13.3 g/yQXotwsi72.0-16.0The [facility] CenterComment on above:Performed By: #### CBC #### [facility] [address] [place] [address] Dr. Belkis Maloney #0.01 10e3/ulNormal0.00-0.03The [facility] Centerment on above:Performed By: #### CBC #### [facility] [address] [address] [address] Belkis Maloney %0.1 %Normal0.0-0.5The [facility] on above: Performed By: #### CBC #### [facility] [address] [place] [address] Dr. Belkis Elmore #2.5 103/ulNormal1.2-3.8The [facility] on above:Performed By: #### CBC #### [facility] [address] [place] [address] Dr. Belkis Mercerhocytes/100 WBC (Bld)33.0 %Nhhieh17.5-60.0The [facility] on above:Performed By: #### CBC #### [facility] [address] [place] [address] Dr. Belkis Queen DIFF REQNONormalThe [facility] Medical CenterComment on above: Performed By: #### CBC #### [facility] [address] [place] [address] Dr. Belkis Garcia (RBC) [Entitic mass]30.5 oiCcerei86.7-34.0The [facility] on above:Performed By: #### CBC #### [facility] [address] [place] [address] Dr. Belkis Garcia (RBC) [Mass/Vol]32.4 g/dIWudlqt67.9-35.2The [facility] on above:Performed By: #### CBC #### [facility] [address] [place] [address] Dr. Belkis Garcia (RBC) [Entitic vol]94.3 qAIiaeoh45.0-99.0The [facility] on above:Performed By: #### CBC #### [facility] [address] [place] [address] Dr. Belkis Whitley #0.3 103/ulNormal0.3-0.8The [facility] HospitalComment on above:Performed By: #### CBC #### [facility] [address] [address] [address] Belkis Khanocytes/100 WBC (Bld)4.2 %Normal1.7-12.0The [facility] on above:Performed By: #### CBC #### [facility] [address] [address] [address] Belkis SmithUT #4.6 103/ulNormal1.4-6.5The [facility] CenterComment on above:Performed By: #### CBC #### [facility] [address] [place] [address] Dr. Belkis Smithutrophils/100 WBC (Bld)60.0 %Ekickr96.0-75.0The [facility] CenterComment on above:Performed By: #### CBC #### [facility] [address] [place] [address] Dr. Belkis RayPlatelet mean volume (Bld) [Entitic vol]9.3 fLCritically low 9.5-13.5The [facility] CenterComment on above:Performed By: #### CBC #### [facility] [address] [place] [address] Dr. Belkis RayPLT182 103/ukVvxxmi271-479Bpz [facility] CenterComment on above: Performed By: #### CBC #### [facility] [address] [place] [address] Dr. Belkis RayRBC4.36 106/ulNormal4.20-5.40The [facility] CenterComment on above:Performed By: #### CBC #### [facility] [address] [place] [address] Dr. Belkis RayWBC7.6 103/ulNormal4.0-11.0The [facility] CenterComment on above: Performed By: #### CBC #### [facility] [address] [place] [address] Dr. Belkis RayPROF 14(COMP METB)on 40-67-9585Hcpztvk [Mass/Vol]3.9 g/dLNormal 3.4-5.0The [facility] CenterComment on above:Performed By: #### CMP #### [facility] [address] [place] [address] Dr. Belkis RayAlbumin/Globulin [Mass ratio]1.1 {ratio}NormalThe [facility] Medical CenterComment on above:Performed By: #### CMP #### [facility] [address] [place] [address] Dr. Belkis GillespieP [Catalytic activity/Vol]70 U/ZTiezdy01-125Mwv [facility] CenterComment on above:Performed By: #### CMP #### [facility] [address] [place] [address] Dr. Belkis Marroquin [Catalytic activity/Vol]50 U/KBuklzl40-09Gge [facility] CenterComment on above:Performed By: #### CMP #### [facility] [address] [place] [address] Dr. Belkis Foster gap [Moles/Vol]14.1 mmol/LNormalThe [facility] Comment on above:Performed By: #### CMP #### [facility] [address] [place] [address] Dr. Belkis RayAST [Catalytic activity/Vol]30 U/QNykyzh68-00Xgl [facility] CenterComment on above:Performed By: #### CMP #### [facility] [address] [place] [address] Dr. Belkis RayBilirubin [Mass/Vol]0.7 mg/dLNormal0.2-1.0The [facility] Comment on above:Performed By: #### CMP #### [facility] [address] [place] [address] Dr. Belkis RayCalcium [Mass/Vol]9.1 mg/dLNormal8.5-10.1[facility] Comment on above:Performed By: #### CMP #### [facility] [address] [place] [address] Dr. Belkis RayChloride [Moles/Vol]105 mmol/DAxaovs94-941Gwa [facility] Comment on above:Performed By: #### CMP #### [facility] [address] [address] [address] Belkis RayCO2 [Moles/Vol]24.8 mmol/NAikvea34.0-32.0The [facility] Comment on above:Performed By: #### CMP #### [facility] [address] [address] [address] Belkis RayCreatinine [Mass/Vol]0.59 mg/dLNormal0.55-1.02The [facility] Medical CenterComment on above:Performed By: #### CMP #### [facility] [address] [address] [address] Belkis HydeGFR-AF SUDANESE>60Normal>=60The [facility] Medical CenterComment on above:Performed By: #### CMP #### [facility] [address] [address] [address] Belkis HydeGFR-NON AF SUDANESE>60Normal>=60The [facility] CenterComment on above:Performed By: #### CMP #### [facility] [address] [address] [address] Belkis RayGlobulin (S) [Mass/Vol]3.5 g/dLNormalThe [facility] Medical CenterComment on above:Performed By: #### CMP #### [facility] [address] [address] [address] Belkis RayGlucose [Mass/Vol]147 mg/dLCritically eqsd47-720Mua [facility] CenterComment on above:Performed By: #### CMP #### [facility] [address] [address] [address] Belkis RayPotassium [Moles/Vol]3.9 mmol/LNormal3.5-5.1The [facility] Comment on above:Performed By: #### CMP #### [facility] [address] [address] [address] Belkis RayProtein [Mass/Vol]7.4 g/dLNormal6.4-8.2The [facility] Comment on above:Performed By: #### CMP #### [facility] [address] [address] [address] Belkis RaySodium [Moles/Vol]140 mmol/OWswnig691-374Cxj [facility] Comment on above:Performed By: #### CMP #### [facility] [address] [address] [address] Belkis RayUrea nitrogen [Mass/Vol]9.0 mg/dLNormal7.0-18.0The [facility] CenterComment on above:Performed By: #### CMP #### [facility] [address] [address] [address] Belkis Benson nitrogen/Creatinine [Mass ratio]15.3 mg/mgNormalThCleveland Clinic Akron General Lodi HospitalComment on above:Performed By: #### CMP #### [facility] [address] [address] [address] Belkis Hernandez [id number] (GASTNO) ABDELRAHMANRADHA CH ([id number]) 1990 F Date Time Provider Department 12/24/21 VICKY GATES During your visit today, we recorded the following information about you: Jamila Lockhart 12/24/2021 1:47 PM Signed Patient calling Asking when she needs to have labs drawn again? And if we can fax the orders to [facility]? FAX [phone] Erica Solis RN 12/24/2021 2:25 PM Signed [...] 7 5 June 11, 2021 2:50pm - prednisoLONE (PRELONE) [...] Encounter Status:Closed by ERICA SOLIS RN on 12/24/21[facility] HospitalTORY PHYSICALon [id number] PHYSICALHNO ID: [id number] Author: Erica Solis RN Service: ? Author [...] - 45 mg/dL 20 AFP <11.0 ng/mL 6.0NormalCSheltering Arms HospitalAFPon 25-48-9276GNK8.0 ng/mL Normal<11.0[facility] on above:Result Comment: AFP levels <11 ng/ml can be found in a variety of conditions, Hepatocellular Carcinoma and Non-seminomatous testicular cancer among others. Correlation with clinical picture and other test results including histopathology and radiology, where applicable, is recommended.Performed By: #### HFP, BMP, HBSAG, PT, CBC, FERR ####[place] [phone]#### AHBCOT, SMTHS, CERULO, AHAVG, AHBSQ, AHCV1B, ANAS, MITOS, AFP, IGG ####[place] [phone]#### LKM ####[address] [phone] 25-69-3781HTS by EIA0.7 OD RatioNormalCincinnati VA Medical Center on above:Result Comment: OD Ratio is interpreted as follows: Negative <1.0 Positive >=1.0Performed By: #### HFP, BMP, HBSAG, PT, CBC, FERR ####[place] [phone]#### AHBCOT, SMTHS, CERULO, AHAVG, AHBSQ, AHCV1B, ANAS, MITOS, AFP, IGG ####[place] [phone]#### LKM ####[address] [phone] by EIA, Qual NegativeNormalNegativeCincinnati VA Medical Center on above:Performed By: #### HFP, BMP, HBSAG, PT, CBC, FERR ####[place] [phone]#### AHBCOT, SMTHS, CERULO, AHAVG, AHBSQ, AHCV1B, ANAS, MITOS, AFP, IGG ####[facility] [place], [place] [phone]#### LK ####[facility] [address] [place], [place] [phone]-9 Antitryp Genon 36-31-0362Vmpan-1 Antitryp IntSee BelowNormalCSheltering Arms HospitalComment on above:Result Comment: (NOTE) Alpha-1 Antitrypsin Genotyping Laboratory Accession Number: [id number] Result: No Variant Detected in SERPINA1 (PI*MM) [...] two most common pathogenic variants: S (c.863A>T, p.Vmx564Bxw, g.03587169), Z (c.1096G>A, p.Bfq971Nqw, g.96057951), and the rarer variants: F (c.739C>T, p.Hag957Dje, g.20340752), I (c.187C>T, p.Czx45Hrb, g.08777559). Limitations: This Laboratory Developed Test (LDT) is [...] developed and its performance characteristics determined by [facility]'s [facility] [place] ([facility]). It has not been cleared or approved by the FDA. [facility] is regulated under CLIA as certified to [...] SJ, Annabelle AF. Molecular characterisation of three iwigu-6-vniqldhrohg deficiency variants: proteinase inhibitor (Pi) nullcardiff (Yjt003----Qgs); PiMmalton (Ckk87----xgtzzldm) and PiI (Wmq54----Jbv). Hum Smitha. 1989 Oct;84(1):55-8. 4) Con EK and Cleopatra LUTZ. Clinical practice. Alpha1-antitrypsin deficiency. N Engl J Med. 2008May 11;360(57)5920-63. 5) Christopher ROMAN, Bora F, Tova LUTZ. The significance of the F variant of hvplr-2-ubdupiadlas and unique case report of a PiFF homozygote. BMC Pulm Med. 2013Jun 23;14:132. 6) Jono MarmolejoK, Babita ANDERSEN, and Yusuf Schwartz. Alpha-1 Antitrypsin Deficiency. 2005Sep 12 [Updated 2017 December 05]. In: Jairo RA, Brayden MP, Rudy TO, et al., editors. GeneRPoderopediaws [Internet]. [place]): [facility], [place]; 4268-5146. Available from: http://www.ncbi.nlm.nih.gov/books/VDJ7093/ As reviewed by Jacek Lomeli, PhD, HCLDPerformed By: #### HA1AT #### [place] [phone] Metabolic Panlon 05-01-3504Hikeb gap [Moles/Vol]9 mmol/LNormal 08-04Brecksville Va / Crille HospitalComment on above:Performed By: #### HFP, BMP, HBSAG, PT, CBC, FERR #### [address] [place] [phone] #### AHBCOT, SMTHS, CERULO, AHAVG, AHBSQ, AHCV1B, ANAS, MITOS, AFP, IGG #### [facility] [address] [place], [place] [address] #### LKM #### [facility] [address] [place] [address] Asqseme [Mass/Vol]9.4 mg/dLNormal8.5-10.5CSheltering Arms Hospital Comment on above:Performed By: #### HFP, BMP, HBSAG, PT, CBC, FERR #### [address] [place] [phone] #### AHBCOT, SMTHS, CERULO, AHAVG, AHBSQ, AHCV1B, ANAS, MITOS, AFP, IGG #### [place] [phone] #### LKM #### [facility] [address] [place] [address] Ecqfzjqz [Moles/Vol]102 mmol/HQuobcy04-934YfsoztjigBrecksville Va / Crille Hospital Comment on above:Performed By: #### HFP, BMP, HBSAG, PT, CBC, FERR #### [place] [phone] #### AHBCOT, SMTHS, CERULO, AHAVG, AHBSQ, AHCV1B, ANAS, MITOS, AFP, IGG #### [place] [phone] #### LKM #### [facility] [address] [place], [place] [phone] [Moles/Vol]25 mmol/RRpdehy25-26GktkmsryjBrecksville Va / Crille HospitalComment on above:Performed By: #### HFP, BMP, HBSAG, PT, CBC, FERR #### [place] [phone] #### AHBCOT, SMTHS, CERULO, AHAVG, AHBSQ, AHCV1B, ANAS, MITOS, AFP, IGG #### [place] [phone] #### LKM #### [facility] [address] [phone] [Mass/Vol]0.52 mg/dLLow0.70-1.40B[facility]ville [facility] / Crille HospitalComment on above:Performed By: #### HFP, BMP, HBSAG, PT, CBC, FERR #### [address] #### AHBCOT, SMTHS, CERULO, AHAVG, AHBSQ, AHCV1B, ANAS, MITOS, AFP, IGG #### [facility] [phone] #### LKM #### [facility] [address] [place] [address] gKZX- Amer.>60Normal>60Martin Memorial HospitalvelandComment on above:Performed By: #### HFP, BMP, HBSAG, PT, CBC, FERR #### [place] [phone] #### AHBCOT, SMTHS, CERULO, AHAVG, AHBSQ, AHCV1B, ANAS, MITOS, AFP, IGG #### [place] [phone] #### LKM #### [facility] [address] [place] [address] lQYO-All Other Races>60Normal>60[facility] on above:Result Comment: eGFR (Estimated GFR) Units [...] HFP, BMP, HBSAG, PT, CBC, FERR #### [place] [phone] #### AHBCOT, SMTHS, CERULO, AHAVG, AHBSQ, AHCV1B, ANAS, MITOS, AFP, IGG #### [place] [address] [place] [phone] #### LKM #### [place] [address] Tznsftt [Mass/Vol]111 mg/rTBloe67-369YuvcejrffBrecksville Va / Crille Hospital Comment on above:Performed By: #### HFP, BMP, HBSAG, PT, CBC, FERR #### [place] [phone] #### AHBCOT, SMTHS, CERULO, AHAVG, AHBSQ, AHCV1B, ANAS, MITOS, AFP, IGG #### [place] [phone] #### LKM #### [place] [phone] [Moles/Vol]3.9 mmol/LNormal3.5-5.0Brec[facility]ville [facility] / Crille HospitalComment on above:Performed By: #### HFP, BMP, HBSAG, PT, CBC, FERR #### [place] [phone] #### AHBCOT, SMTHS, CERULO, AHAVG, AHBSQ, AHCV1B, ANAS, MITOS, AFP, IGG #### [place] [phone] #### LKM #### [place] [phone] [Moles/Vol]136 mmol/GGqtbkf678-248RzqchxwdaBrecksville Va / Crille Hospital Comment on above:Performed By: #### HFP, BMP, HBSAG, PT, CBC, FERR #### [place] [phone] #### AHBCOT, SMTHS, CERULO, AHAVG, AHBSQ, AHCV1B, ANAS, MITOS, AFP, IGG #### [place] [phone] #### LKM #### [facility] [address] [place] [address] Wbcm nitrogen [Mass/Vol]8 mg/dLNormal8-25[facility] Comment on above:Performed By: #### HFP, BMP, HBSAG, PT, CBC, FERR #### [place] [address] #### AHBCOT, SMTHS, CERULO, AHAVG, AHBSQ, AHCV1B, ANAS, MITOS, AFP, IGG #### [place] [address] #### LKM #### [facility] [address] [place] [address] HLBmp 61-25-9283Gvfwkmqy nRBC<0.01Normal<0.01B[facility] / Crille HospitalComment on above:Performed By: #### HFP, BMP, HBSAG, PT, CBC, FERR #### [place] [phone] #### AHBCOT, SMTHS, CERULO, AHAVG, AHBSQ, AHCV1B, ANAS, MITOS, AFP, IGG #### [place] [phone] #### LKM #### [facility] [address] [place] [address] Oskdilqlsrx distribution width (RBC) [Ratio]13.0 %Uzwvxk81.5-15.0 [facility] Crille HospitalComment on above:Performed By: #### HFP, BMP, HBSAG, PT, CBC, FERR #### [place] [phone] #### AHBCOT, SMTHS, CERULO, AHAVG, AHBSQ, AHCV1B, ANAS, MITOS, AFP, IGG #### [place] [address] #### LKM #### [place] [address] Whiddgteeu (Bld) [Volume fraction]35.7 %Low36.0-46.0Berger Hospitalment on above:Performed By: #### HFP, BMP, HBSAG, PT, CBC, FERR #### [place] [phone] #### AHBCOT, SMTHS, CERULO, AHAVG, AHBSQ, AHCV1B, ANAS, MITOS, AFP, IGG #### [place] [phone] #### LKM #### [place] [address] Lcahezefbp (Bld) [Mass/Vol]11.7 g/uGBefdbx32.5-15.5CUniversity [facility]als [facility] on above:Performed By: #### HFP, BMP, HBSAG, PT, CBC, FERR #### [place] [phone] #### AHBCOT, SMTHS, CERULO, AHAVG, AHBSQ, AHCV1B, ANAS, MITOS, AFP, IGG #### [place] [phone] #### LKM #### [place] [address] CNJ57.2 cWRipdep42.0-34.0[facility] on above: Performed By: #### HFP, BMP, HBSAG, PT, CBC, FERR #### [place] [phone] #### AHBCOT, SMTHS, CERULO, AHAVG, AHBSQ, AHCV1B, ANAS, MITOS, AFP, IGG #### [place] [phone] #### LKM #### [place] [phone] (RBC) [Mass/Vol]32.8 g/rZSufyov60.5-36.0B[facility]ville [facility] / Crille HospitalComment on above:Performed By: #### HFP, BMP, HBSAG, PT, CBC, FERR #### [place] [phone] #### AHBCOT, SMTHS, CERULO, AHAVG, AHBSQ, AHCV1B, ANAS, MITOS, AFP, IGG #### [place] [phone] #### LKM #### [place] [phone] (RBC) [Entitic vol]101.4 aOEqcn57.0-100.0B[facility] / Crille HospitalComment on above:Performed By: #### HFP, BMP, HBSAG, PT, CBC, FERR #### [place] [phone] #### AHBCOT, SMTHS, CERULO, AHAVG, AHBSQ, AHCV1B, ANAS, MITOS, AFP, IGG #### [place] [phone] #### LKM #### [place] [phone] mean volume (Bld) [Entitic vol]10.1 fLNormal9.0-12.7 Berger Hospitalment on above:Performed By: #### HFP, BMP, HBSAG, PT, CBC, FERR #### [place] [phone] #### AHBCOT, SMTHS, CERULO, AHAVG, AHBSQ, AHCV1B, ANAS, MITOS, AFP, IGG #### [place] [phone] #### LKM #### [facility] [address] [place] [address] Xsvljamiw (Bld) [#/Vol]116 10*3/aZDnv580-113BgvrkvfbtBrecksville Va / Crille HospitalComment on above:Performed By: #### HFP, BMP, HBSAG, PT, CBC, FERR #### [place] [phone] #### AHBCOT, SMTHS, CERULO, AHAVG, AHBSQ, AHCV1B, ANAS, MITOS, AFP, IGG #### [place] [phone] #### LKM #### [place] [phone] (Bld) [#/Vol]3.52 10*6/uLLow3.90-5.20[facility] Comment on above:Performed By: #### HFP, BMP, HBSAG, PT, CBC, FERR #### [place] [phone] #### AHBCOT, SMTHS, CERULO, AHAVG, AHBSQ, AHCV1B, ANAS, MITOS, AFP, IGG #### [place] [phone] #### LKM #### [facility] [address] [place], [place] [phone] (Bld) [#/Vol]6.28 10*3/uLNormal3.70-11.00B[facility] / Crille HospitalComment on above:Performed By: #### HFP, BMP, HBSAG, PT, CBC, FERR #### [place] [phone] #### AHBCOT, SMTHS, CERULO, AHAVG, AHBSQ, AHCV1B, ANAS, MITOS, AFP, IGG #### [facility] [address] [place], [place] [address] #### LKM #### [facility] [address] [place] [address] AFMWfy 79-68-1063SUODDstfpf Visit ([id number]) RADHA HINES ([id number]) 1990 F Date Time Provider Department 08/27/21 4:00 PM VICKY GATES [id number] During your visit today, we recorded the [...] Use Topics - Alcohol use: Yes Comment: Delfinober now. Was drinking 12 pack every day [...] 05 23June 11, 2021 2:57pm) No current facility-administered medications [...] ulcerations Neurologic No Asteri (more content not included)...NormalBrecksville Va / Crille Hospital Ceruloplasminon 21-81-0180Rzkelzcfrqbya45 mg/hKNcofdf79-27HiyazvvzhBrecksville Va / Crille HospitalComment on above:Performed By: #### HFP, BMP, HBSAG, PT, CBC, FERR #### [facility] [address] [place] [address] #### AHBCOT, SMTHS, CERULO, AHAVG, AHBSQ, AHCV1B, ANAS, MITOS, AFP, IGG #### [facility] [address] [place], [place] [address] #### LKM #### [facility] [address] [place] [address] Duvxadsbae 60-65-2970Fvmghvea [Mass/Vol]53.9 ng/fCKrfgoo06.7-205.1 [facility] ClevelandComment on above:Performed By: #### HFP, BMP, HBSAG, PT, CBC, FERR #### [facility] [address] [place] [address] #### AHBCOT, SMTHS, CERULO, AHAVG, AHBSQ, AHCV1B, ANAS, MITOS, AFP, IGG #### [facility] [address] [place] [address] #### LKM #### [facility] [address] [place] [address] FRCWFKY PHYSICALon [id number] PHYSICALHNO ID: [id number] Author: Vicky Gates MD Service: ? Author [...] in the right upper (more content not included)...NormalBrecksville Va / Crille HospitalHe B Core Ab,Totalon 75-98-3949Nla B Core Ab,TotalNegativeNormalNegativeBrecksville Va / Crille HospitalComment on above: Performed By: #### HFP, BMP, HBSAG, PT, CBC, FERR ####[facility] [place], [place] [phone]#### AHBCOT, SMTHS, CERULO, AHAVG, AHBSQ, AHCV1B, ANAS, MITOS, AFP, IGG ####[address] [phone]#### LKM ####[address] [phone] C Ab IA w/Confon 08-27-2021 Hepatitis C Ab IANegativeNormalNegativeCincinnati VA Medical Center on above:Performed By: #### HFP, BMP, HBSAG, PT, CBC, FERR ####[place] [phone]#### AHBCOT, SMTHS, CERULO, AHAVG, AHBSQ, AHCV1B, ANAS, MITOS, AFP, IGG ####[address] [phone]#### LKM ####[address] [phone] SurfaceAb,Quanton 39-92-9536IniU SurfaceAb,Quant<8.00Normal<8.00[facility] on above:Result Comment: NEGATIVEPerformed By: #### HFP, BMP, HBSAG, PT, CBC, FERR ####[place] [phone]#### AHBCOT, SMTHS, CERULO, AHAVG, AHBSQ, AHCV1B, ANAS, MITOS, AFP, IGG ####[address] [phone]#### LKM ####[address] [phone] Functn Panelon 90-05-4249Ostfcqy [Mass/Vol]4.1 g/dL Normal3.5-5.0[facility] on above:Performed By: #### HFP, BMP, HBSAG, PT, CBC, FERR #### [place] [phone] #### AHBCOT, SMTHS, CERULO, AHAVG, AHBSQ, AHCV1B, ANAS, MITOS, AFP, IGG #### [place] [phone] #### LKM #### [facility] [address] [place] [address] PTK [Catalytic activity/Vol]60 U/SUpghdc53-817IwifhucvyBrecksville Va / Crille HospitalComment on above:Performed By: #### HFP, BMP, HBSAG, PT, CBC, FERR #### [place] [phone] #### AHBCOT, SMTHS, CERULO, AHAVG, AHBSQ, AHCV1B, ANAS, MITOS, AFP, IGG #### [place] [phone] #### LKM #### [facility] [address] [place] [id number] MXH [Catalytic activity/Vol]28 U/LNormal0-45Brecks[facility] Va / Crille HospitalComment on above:Performed By: #### HFP, BMP, HBSAG, PT, CBC, FERR #### [place] [phone] #### AHBCOT, SMTHS, CERULO, AHAVG, AHBSQ, AHCV1B, ANAS, MITOS, AFP, IGG #### [place] [phone] #### LKM #### [facility] [address] [place] [address] XPY [Catalytic activity/Vol]38 U/LNormal7-40Berger Hospitalment on above:Performed By: #### HFP, BMP, HBSAG, PT, CBC, FERR #### [place] [phone] #### AHBCOT, SMTHS, CERULO, AHAVG, AHBSQ, AHCV1B, ANAS, MITOS, AFP, IGG #### [place] [phone] #### LKM #### [facility] [address] [place] [address] Ckomzsqsm [Mass/Vol]1.1 mg/dLNormal0.2-1.3CSheltering Arms Hospital Comment on above:Performed By: #### HFP, BMP, HBSAG, PT, CBC, FERR #### [place] [phone] #### AHBCOT, SMTHS, CERULO, AHAVG, AHBSQ, AHCV1B, ANAS, MITOS, AFP, IGG #### [place] [phone] #### LKM #### [facility] [address] [place] [phone],Conjugated0.3 mg/dLHigh<0.2CSheltering Arms Hospital Comment on above:Performed By: #### HFP, BMP, HBSAG, PT, CBC, FERR #### [place] [phone] #### AHBCOT, SMTHS, CERULO, AHAVG, AHBSQ, AHCV1B, ANAS, MITOS, AFP, IGG #### [place] [phone] #### LKM #### [facility] [address] [place] [phone] [Mass/Vol]7.1 g/dLNormal6.0-8.4CSheltering Arms Hospital Comment on above:Performed By: #### HFP, BMP, HBSAG, PT, CBC, FERR #### [place] [phone] #### AHBCOT, SMTHS, CERULO, AHAVG, AHBSQ, AHCV1B, ANAS, MITOS, AFP, IGG #### [facility] [address] [place] [phone] #### LKM #### [facility] [address] [place] [address] Loixdxlpj A Ab IgGon 14-70-6428Mkgcwqiqc A Ab IgGNegativeNormal NegativeCincinnati VA Medical Center on above:Result Comment: No serological evidence of past exposure to Hepatitis A virus or hepatitis A vaccination. Should recent infection be suspected, repeat testing is suggested 3-4 weeks after this draw.Performed By: #### HFP, BMP, HBSAG, PT, CBC, FERR ####[place] [phone]#### AHBCOT, SMTHS, CERULO, AHAVG, AHBSQ, AHCV1B, ANAS, MITOS, AFP, IGG ####[facility] [place] [phone]#### LKM ####[facility] [address] [place], [place] [phone] Hepatitis B Surf. Agon 34-68-3840Ozdhzurdq B Surf. AgNegativeNormalNegative [facility] on above:Performed By: #### HFP, BMP, HBSAG, PT, CBC, FERR #### [place] [address] #### AHBCOT, SMTHS, CERULO, AHAVG, AHBSQ, AHCV1B, ANAS, MITOS, AFP, IGG #### [facility] [address] [place] [address] #### LKM #### [facility] [address] [place] [address] KnFsx 05-89-6114CzQ [Mass/Vol]996 mg/tRZlousz106-1232CkujonlbrCincinnati VA Medical Center on above:Performed By: #### HFP, BMP, HBSAG, PT, CBC, FERR ####[place] [address] [place], [place] [phone]#### AHBCOT, SMTHS, CERULO, AHAVG, AHBSQ, AHCV1B, ANAS, MITOS, AFP, IGG ####[facility] [place], [place] [phone]#### LKM ####[address] [phone] Liver-Kid Micro Abson 12-62-8813Dekyr-Kid Micro Abs<1:20Normal<1:20[facility] on above:Result Comment: (NOTE) INTERPRETIVE INFORMATION: Majkh-Boyswn-Ntgldstjj Abs, IgG Liver-Kidney Microsome IgG antibody (anti-LKM), as detected by indirect immunofluorescent antibody (IFA) techniques, may be observed in patients with autoimmune hepatitis type 2 (AIH-2), AIH-2 associated with autoimmune mhkghjvukzlaguixbp-yjfmlufxeay-cterzmnnbs dystrophy (APECED), viral hepatitis C or D, and some forms of drug-induced hepatitis. This IFA does not differentiate among the four types of LKM antibodies (LKM-1, LKM-2, LKM-3, and a fourth type that recognizes CY and CY antigens). Of these, anti-LKM-1 (cytochrome M550RAV8) IgG antibodies are considered specific for AIH-2. This test was developed and its performance characteristics determined by [facility]. It has not been cleared or approved by the US Food and Drug Administration. This test was performed in a CLIA certified laboratory and is intended for clinical purposes. Performed By: [facility] [address] [place] [address] Sterile Process Tech: BRIGIDA Daviserformed By: #### HFP, BMP, HBSAG, PT, CBC, FERR ####[place] [address] [place], [place] [phone]#### AHBCOT, SMTHS, CERULO, AHAVG, AHBSQ, AHCV1B, ANAS, MITOS, AFP, IGG ####[facility] [address] [place], [place] [phone]#### LKM ####[facility] [address] [place], [place] [phone] Ab Scron 56-14-6837Uvhvzktqcitbb Ab ScrNegative NormalNegativeCincinnati VA Medical Center on above:Result Comment: Normal range : negative at a 1:20 serum dilution.Performed By: #### HFP, BMP, HBSAG, PT, CBC, FERR ####[facility] [place], [place] [phone]#### AHBCOT, SMTHS, CERULO, AHAVG, AHBSQ, AHCV1B, ANAS, MITOS, AFP, IGG ####[place] [address] [place], [place] [phone]#### LKM ####[facility] [address] [place], [place] [phone] 30-10-5104WL INR1.0Vjexgk4.9-1.3CUniversity Hospitals Beachwood [facility] on above:Result Comment: Vitamin K Antagonist (VKA) Therapeutic Range: INR 2 to 3 (Target INR of 2.5) Note: For patients treated with VKA drugs, such as warfarin, the [place] [employer] 2012 Guideline recommends [...] Juan RA, et al. JACC 2017, 70: 252-289Performed By: #### HFP, BMP, HBSAG, PT, CBC, FERR #### [place] [phone] #### AHBCOT, SMTHS, CERULO, AHAVG, AHBSQ, AHCV1B, ANAS, MITOS, AFP, IGG #### [place] [address] #### LKM #### [facility] [address] [place] [address] [id number] PT Sec13.7 secHigh9.7-13.0[facility]Com[facility] on above:Performed By: #### HFP, BMP, HBSAG, PT, CBC, FERR #### [place] [phone] #### AHBCOT, SMTHS, CERULO, AHAVG, AHBSQ, AHCV1B, ANAS, MITOS, AFP, IGG #### [place] [address] #### LKM #### [place] [id number] [phone] Muscle Ab Scron 76-53-6087Bekkfs Muscle Ab ScrNegativeNormal NegativeCincinnati VA Medical Center on above:Result Comment: Normal range : negative at a 1:20 serum dilution.Performed By: #### HFP, BMP, HBSAG, PT, CBC, FERR ####[place] [phone]#### AHBCOT, SMTHS, CERULO, AHAVG, AHBSQ, AHCV1B, ANAS, MITOS, AFP, IGG ####[address] [phone]#### LKM ####[facility] [address] [place] [address] [phone] Quick Testingon 71-47-1673VdsfoeNwrsbuuwPpriv [employer] Other CNOVon 02-47-2628JCXXZbeexf Visit (LEMUEL) RADHA HINES ([id number]) 1990 F Date Time Provider Department 08/10/21 [...] hypertension. 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 Patient presented to [facility] at beginning of May for RUE ecchymosis. She was noted to have elevated LFTs and advised to stop drinking alcohol. She established care with PCP Elen Deshpande MD who instructed her to go to [facility] ER for jaundice and RUQ pain. Upon admit to [facility] on 06/08/2021, labs revealed a significant elevation [...] Neuro: Gait normal. Sensation grossly intact. IMAGING: [facility]) 06/08/2021 CT A/P (Images Uploaded/Report Scanned) 06/11/2021 MRIAbdomen (Images Uploaded/Report Scanned) 06/08/2021 US RUQ- cirrhotic liver, ascites, and gallbladder wall thickening; no 07/06/2021 HIDA- normal LABS (more content not included)...NormalPremier Health Miami Valley Hospitalon [id number] ([facility]) RADHA HINES ([id number]) 1990 F Date Time Provider Department 07/24/21 ULICES CLEMONS [facility] During your visit today, we recorded the following information about you: Susan Latif RN 2021 3:07 PM Signed Call to patient to evaluate reason for consult with Dr. Clemons and request records for review. Received . Left detailed message. Call to Dr. Rodney Castañeda (referrig physician) for records. Received . Left detailed message. Fax request for records sent, as well to [phone] Susan Latif RN 2021 4:07 PM Signed Received return call from patient. Referral from Dr. Rodney Castañeda for transplant?? Faxed request for records and imaging reports to Dr. Castañeda to verify reason for consult. PCP: Shaikh Jeramy MD [facility] [address] [facility] [phone] Freida Deluca Pss 07/25/2021 10:[address] Jeramy Zhao's nurse, called regarding records. Stated records were sent last week-our office did not receive. Confirmed fax number and she will send them over today. Freida [facility] Susan Latif RN 07/26/2021 9:07 AM Signed Follow up call to patient. Cancelled her consult today, as our office has not received OSH records. Will call patient to reschedule once records are received and reviewed. Felecia Pelletier 07/27/2021 9:11 AM Signed Received reports from [facility]. CT Abdomen/Pelvis 06/08/2021 US Abdomen 06/08/2021 MRI Abdomen 06/10/2021 NM Hepatobilliary scan 07/06/2021 Reports scanned and imaging downloaded. Please review. Susan Latif RN 07/30/2021 2:32 PM Signed Hepatobiliary Surgery Consult OSH records received: 30 yr old female who presented to [facility] at beginning of May for RUE ecchymosis. She was noted to have elevated LFTs and advised to stop drinking alcohol. She established care with PCP Elen Deshpande MD who instructed her to go to [facility] ER for jaundice and RUQ pain. Upon admit to [facility] on 06/08/2021, labs revealed a significant elevation [...] 11 Received Records From: 06/08/2021 Hospitalist HANDP ([facility]) 06/09/2021 GI Consult Note (Dr. Castañeda) 06/11/2021 Discharge Summary ([facility]) Imaging:[facility]) 06/08/2021 CT A/P (Images Uploaded/Report Scanned) 06/11/2021 MRIAbdomen (Images Uploaded/Report Scanned) 06/08/2021 US RUQ- cirrhotic liver, ascites, and gallbladder wall thickening; no 07/06/2021 HIDA- normal Labs: See scanned lab reports Felecia L Prabhu 07/31/2021 8:52 AM Signed First available with permission from Dr. Gates would be 08/27/2021 then he is out for 2 weeks starting the 10 of September. Felecia Schwartz Prabhu 07/31/2021 3:42 PM Signed Patient is scheduled on 08/10/2021 in [place] to see Dr. Clemons. On 08/27/2021 she is scheduled to see Dr. Gates at [facility]. She is aware of both appointments. 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] Consult [173] Problem List As Of Date: 2021 (None) Encounter Status:Closed by SUSAN LATIF RN on 08/01/21NoalCSheltering Arms Hospital Vital Signs Date TimeVital SignValuePerforming ZbnjhkjyaGnngmmag85-91-3239 10:33-0500Body zlusoy051.48 cmVicky Gates MD Work Phone: [phone] [place], [place] 5000111-05-2025 10:33-0500 Body mass index (BMI) [Ratio]24.9 kg/m2Vicky Gates MD Work Phone: [phone] [place], [place] 5000111-05-2025 10:33-0500 Body kxoaaumlhfo20.9 [degF]Vicky Gates MD Work Phone: [phone] [place], [place] 5000111-05-2025 10:33-0500 Body oyfneb14.74 kgVicky Gates MD Work Phone: [phone])[address]11-05-2025 10:33-0500 Diastolic blood unwgjccd20 mm[Hg]Vicky Gates MD Work Phone: [phone] [place], [place] 5000111-05-2025 10:33-0500 Heart rate74 /minImagail Gates MD Work Phone: [phone])[address] [place], [place] 4572411-05-2025 10:33-0500 Respiratory rate12 /Chemo Gates MD Work Phone: 1([phone])[address] [place], [place] 4572411-05-2025 10:33-0500 SaO2% (BldA) [Mass fraction]99 %Vicky Gates MD Work Phone: [phone])[address] [place], [place] 4572411-05-2025 10:33-0500 Systolic blood jijqivgn801 mm[Hg]Vicky Gates MD Work Phone: [phone])[address] [place], [place] 4572410-21-2025 17:52-0400 Body itufgqgyvcu10.3 [degF]Vicky Gates MD Work Phone: 1(304)[address] [place], [place] 4572410-21-2025 17:52-0400 Diastolic blood nlutwebz71 mm[Hg]Vicky Gates MD Work Phone: 1(533)[address] [place], [place] 4572410-21-2025 17:52-0400 Heart xidm452 /Chemo Gates MD Work Phone: 1(289)[address] [place], [place] 4572410-21-2025 17:52-0400 Respiratory rate18 /Chemo Gates MD Work Phone: [phone])[address] [place], [place] 4572410-21-2025 17:52-0400 SaO2% (BldA) [Mass fraction]98 %Vicky Gates MD Work Phone: [phone])[address] [place], [place] 4572410-21-2025 17:52-0400 Systolic blood xetawrpz465 mm[Hg]Vicky Gates MD Work Phone: 1(628)[address] [place], [place] 4572409-19-2025 09:21-0400 Diastolic blood tndjvpih09 mm[Hg]Vicky Gates MD Work Phone: 1([phone])[address] [place], [place] 4572409-19-2025 09:21-0400 Heart rate83 /Chemo Gates MD Work Phone: 1(667)[address] [place], [place] 4572409-19-2025 09:21-0400 Respiratory rate18 /minImad Mamadou GERMAN Work Phone: [facility]09-19-2025 09:21-0400 SaO2% (BldA) [Mass fraction]97 %Vicky Gates MD Work Phone: 1(646)[phone] [place], [place] 3713409-19-2025 09:21-0400 Systolic blood mm[Hg]Vicky Gates MD Work Phone: [phone])[address]09-19-2025 07:30-0400 Body houkss466.48 cmVicky Gates MD Work Phone: [phone])[address]09-19-2025 07:30-0400 Body wddppe76.23 kgVicky Gates MD Work Phone: [phone] [place], [place] 3713406-25-2025 16:22-0400 Body mass index (BMI) [Ratio]26.79 kg/r5Eqawn Shamika DO Work Phone: [facility] CenterHotjxbaglq80-70-2669 16:22-0400Body zozzcq31.32 kgCorey Shamika DO Work Phone: [facility] CenterCcpbibuzqa39-67-7264 16:22-0400Diastolic blood mm[Hg]Chalo Shamika DO Work Phone: [facility] CenterElgbnhtbfy27-95-2887 16:22-0400Systolic blood romhizci688 mm[Hg]Chalo Shamika DO Work Phone: [facility] CenterFkrxfplbsu44-12-4764 16:01-0400Body havsty091.48 cmBlanchard Valley [facility] System05-28-2025 16:01-0400Body mass index (BMI) [Ratio]25 kg/z6DsziijsepBlanchard Valley Health System05-28-2025 16:01-0400Body artoberodor24.1 [degF][facility]05-28-2025 16:01-0400Body rebziw98.14 kgBlanchard Valley Health System05-28-2025 16:010400Diastolic blood xritjbjj68 mm[Hg][facility]05-28-2025 16:01-0400 Heart hzqy545 /[facility]05-28-2025 16:01-0400 Respiratory rate18 /[facility]05-28-2025 16:01-0400 SaO2% (BldA) [Mass fraction]98 %[facility]05-28-2025 16:01-0400Systolic blood ylfozouu802 mm[Hg][facility] 01-10-2025 15:03-0500Body mass index (BMI) [Ratio]26.07 kg/h7HlfpbadwBobo Trinidad PMHNP-BC Work Phone: 1(074)[address] [place], [place] 3801502-24-2025 15:03-0500Body colvpx29.6 kg Bobo Trinidad PMHNP-BC Work Phone: 1(946)[address] [place], [place] 3801502-24-2025 15:03-0500Diastolic blood mm[Hg]Bobo Trinidad PMHNP-BC Work Phone: 1(269)[address] [place], [place] 3801502-24-2025 15:03-0500Heart rate94 /min Bobo Trinidad PMHNP-BC Work Phone: 1(767)[address] [place], [place] 3801502-24-2025 15:03-0500Systolic blood rbfbykar529 mm[Hg]Bobo Trinidad PMHNP-BC Work Phone: 1(299)[address] [place], [place] 3801501-27-2025 15:26-0500Body .48 cmBlanchard Valley Health System01-27-2025 15:26-0500Body mass index (BMI) [Ratio]25.6 kg/c1VxpfrpkvsBlanchard Valley Health System01-27-2025 15:26-0500Body zaitao13.5 kgBlanchard Valley Health System01-22-2025 15:00-0500Body mass index (BMI) [Ratio]26.83 kg/e4RkumywbhBobo Trinidad DUCK OPERATOR Work Phone: 1(509)[address] [place], [place] 3801501-22-2025 15:00-0500Body fnwezb81.41 kgBobo Trinidad DUCK OPERATOR Work Phone: 1(079)[address] [place], [place] 3801501-22-2025 15:00-0500Diastolic blood pjbyghqa28 mm[Hg]Bobo Trinidad DUCK OPERATOR Work Phone: [facility] CenterUerjcxuwoc93-53-3425 15:00-0500Heart rate65 /min Bobo Trinidad DUCK OPERATOR Work Phone: [facility] CenterXkucaeamxx51-45-6992 15:00-0500Systolic blood mm[Hg]Bobo Trinidad DUCK OPERATOR Work Phone: [facility] CenterBknwfluhvc54-38-1418 14:56-0500Body .9 cmEd Copeland DUCK OPERATOR Work Phone: [facility] CenterXkkmovfddb10-93-1935 14:56-0500Body mass index (BMI) [Ratio]26.45 kg/n5Qpypydgj Copeland DUCK OPERATOR Work Phone: [facility] CenterVvomyswaob90-39-0906 14:56-0500Body temperature 97.2 [degF]Ed Copeland DUCK OPERATOR Work Phone: [facility] CenterBufcjtzwbg73-07-3862 14:56-0500Body yymrig88.5 kg Ed Copeland DUCK OPERATOR Work Phone: [facility] CenterGcqvysckmj41-06-2584 14:56-0500Diastolic blood bpuvufis53 mm[Hg]Ed Copeland DUCK OPERATOR Work Phone: [facility] CenterIascbqoqhr64-03-4232 14:56-0500Heart rate69 /min Ed Copeland DUCK OPERATOR Work Phone: [facility] CenterYspptdkiqu79-19-1698 14:56-0500Respiratory rate16 /minBredvinestrella Copeland DUCK OPERATOR Work Phone: [facility] CenterLdnhjdfskb31-51-8745 14:56-1985JqJ4% (BldA) [Mass fraction]98 %Ed Copeland DUCK OPERATOR Work Phone: [facility] CenterVcyoxsdoso31-75-8969 14:56-0500Systolic blood sogezsxl111 mm[Hg]Ed Packerk DUCK OPERATOR Work Phone: [facility] CenterWtkwpdxgyj25-94-9521 10:01-0500Body mass index (BMI) [Ratio]26.26 kg/r8GzbjorknBobo Trinidad DUCK OPERATOR Work Phone: [facility] CenterAhmzyhaaoa38-28-6089 10:01-0500Body jvuvxz15.05 kgBobo Trinidad DUCK OPERATOR Work Phone: [facility] CenterWporhudsru85-20-2723 10:01-0500Diastolic blood zcydxldq65 mm[Hg]Bobo Trinidad DUCK OPERATOR Work Phone: [facility] CenterQpwzwflawo40-86-8080 10:01-0500Heart rate74 /min Bobo Trinidad DUCK OPERATOR Work Phone: [facility] CenterTkvndsncpk03-97-6708 10:01-0500Systolic blood evrzvvnb248 mm[Hg]Bobo Trinidad DUCK OPERATOR Work Phone: [facility] CenterNkantwbrfg61-04-9188 09:03-0400Body mass index (BMI) [Ratio]25.47 kg/m3MotqmhlyEd Packerk DUCK OPERATOR Work Phone: noR[facility] CenterMhykyblhwd69-82-4112 09:03-0400Body temperature 97.9 [degF]Ed Packerk DUCK OPERATOR Work Phone: noRusk Rehabilitation CenterVhobcnmujt06-56-4801 09:03-0400Body .15 kgEd Packerk DUCK OPERATOR Work Phone: [facility] CenterGulyhmcech00-19-3499 09:03-0400Diastolic blood vrlhtdab19 mm[Hg]Ed Laurentrick DUCK OPERATOR Work Phone: noR[facility] Rehabilitation CenterQjnnrzxtqh11-40-0284 09:03-0400Heart rate68 /min Ed Laurentrick DUCK OPERATOR Work Phone: noRusk Rehabilitation CenterTxoqklzaqt23-52-4961 09:03-7534LaU2% (BldA) [Mass fraction]98 %Ed Heinpatrick DUCK OPERATOR Work Phone: [facility] CenterWwujsvoybu32-93-2683 09:03-0400Systolic blood mmiduxaj639 mm[Hg]Ed Copeland REJI Work Phone: [facility] CenterTmhiqmziyk52-31-4791 17:35-0400Body .48 cmBl[facility]ard Valley Health System05-31-2024 17:35-0400Body mass index (BMI) [Ratio]25.8 kg/n9PkcroufafBlanchard Valley Health System05-31-2024 17:35-0400Body yzfdlxxxdou95.7 [degF][facility]05-31-2024 17:35-0400Body wmyako48.06 kgBlanchard Valley Health System05-31-2024 17:35-0400Heart rate 88 /[facility]05-31-2024 17:35-0400Respiratory rate16 /[facility]05-31-2024 17:35-6629GzX1% (BldA) [Mass fraction]98 %[facility]09-22-2023 10:33-0400Diastolic blood aflghmbv48 mm[Hg]MD Shaikh Deshpande Work Phone: [facility]09-22-2023 10:33-0400 Heart rate71 /minMD Shaikh Deshpande Work Phone: [facility]09-22-2023 10:33-0400 Respiratory rate16 /minMD Shaikh Deshpande Work Phone: [facility]09-22-2023 10:33-0400 SaO2% (BldA) [Mass fraction]100 %MD Shaikh Deshpande Work Phone: [facility]09-22-2023 10:33-0400 Systolic blood mdsqqrte70 mm[Hg]MD Shaikh Deshpande Work Phone: [facility]09-22-2023 08:33-0400 Body gujtic858.48 cmMD Shaikh Deshpande Work Phone: [facility]09-22-2023 08:33-0400 Body labdvzjbxtk71.9 [degF]MD Shaikh Deshpande Work Phone: [facility]09-22-2023 08:33-0400 Body uvytjk30.42 kgMD Shaikh Deshpande Work Phone: [facility]08-14-2023 15:30-0400 Body .48 cmImad Asaad Other [employer] Other 08-14-2023 15:30-0400Body mass index (BMI) [Ratio] 23.77 kg/m2Imad Asaad Other [employer] Other 08-14-2023 15:30-0400Body zctwoc97.97 kgImad Asaad Other [employer] Other 08-14-2023 15:30-0400Diastolic blood mm[Hg] Imad Asaad Other [employer] Other 08-14-2023 15:30-0400Systolic blood mm[Hg] Imad Asaad Other [employer] Other 07-31-2023 16:00-0400Body .48 More Perera Other [employer] Other 07-31-2023 16:00-0400Body mass index (BMI) [Ratio] 23.99 kg/u0XuusfsAnn Perera Other [employer] Other 07-31-2023 16:00-0400Body knfggkffbub64.1 [degF]Ann Perera Other [employer] Other 07-31-2023 16:00-0400Body tqszzi75.51 kgAnn Dilma Other [employer] Other 07-31-2023 16:00-0400Diastolic blood sxigveyk56 mm[Hg] Ann Perera Other [employer] Other 07-31-2023 16:00-0400Respiratory rate18 /minAndriapanchito Perera Other [employer] Other 07-31-2023 16:00-6711QlH8% (BldA) [Mass fraction]100 % Ann Perera Other [employer] Other 07-31-2023 16:00-0400Systolic blood auqgfslk250 mm[Hg] Ann Perera Other [employer] Other 03-04-2023 09:55-0500Body ecbzol659.48 cmPamelkati Owens Other [employer] Other 03-04-2023 09:55-0500Body mass index (BMI) [Ratio] 25.97 kg/k0Imjctvmart Owens Other [employer] Other 03-04-2023 09:55-0500Body obtyznvrnex85.8 [degF]Charlene Owens Other [employer] Other 03-04-2023 09:55-0500Body .41 kgPamart Owens Other [employer] Other 03-04-2023 09:55-0500Diastolic blood uezuvsth62 mm[Hg] Charlene Owens Other [employer] Other 03-04-2023 09:55-9159IqM2% (BldA) [Mass fraction]99 % Charlene Owens Other [employer] Other 03-04-2023 09:55-0500Systolic blood uzlowyov423 mm[Hg] Charlene Owens Other [employer] Other 12-08-2022 18:10-0500Body silgvt791.48 cmAmbstephen Kong Other [employer] Other 12-08-2022 18:10-0500Body mass index (BMI) [Ratio] 23.77 kg/y2UlaqsSydnee Kong Other [employer] Other 12-08-2022 18:10-0500Body fbdoybpypdp48.8 [degF]Sydnee Kong Other [employer] Other 12-08-2022 18:10-0500Body .97 kgSydnee Kong Other [employer] Other 12-08-2022 18:10-0500Diastolic blood qaqxlxyz06 mm[Hg] Sydnee Kong Other [employer] Other 12-08-2022 18:10-0500Respiratory rate16 /minAmbstephen Kong Other [employer] Other 12-08-2022 18:10-7181CjD0% (BldA) [Mass fraction]100 % Sydnee Kong Other [employer] Other 12-08-2022 18:10-0500Systolic blood ujlmkvyv031 mm[Hg] Sydnee Kong Other [employer] Other 05-31-2022 17:00-0400Body pxtjus978.48 cmDavid Hykes Other [employer] Other 05-31-2022 17:00-0400Body mass index (BMI) [Ratio]25.6 kg/j2Hffvx Hykes Other [employer] Other 05-31-2022 17:00-0400Body fkcyrk83.5 kgDavid Hykes Other [employer] Other 10-05-2021 17:00-0400Body biocyg811.48 cmDavid Hykes Other [employer] Other 10-05-2021 17:00-0400Body mass index (BMI) [Ratio]25.6 kg/a6Kqnlp Hykes Other [employer] Other 10-05-2021 17:00-0400Body ixbitm96.5 kgDavid Hykes Other [employer] Other 09-29-2021 15:30-0400Body fwybri992.48 cmPamela Graciela Other [employer] Other 09-29-2021 15:30-0400Body mass index (BMI) [Ratio]25.6 kg/y0Xwxpky Graciela Other [employer] Other 09-29-2021 15:30-0400Body dhbaaynvwpm03 [degF]Charlene Owens Other [employer] Other 09-29-2021 15:30-0400Body gyvpel55.5 kgCharlene Owens Other [employer] Other 09-29-2021 15:30-0400Respiratory rate18 /minCharlene Owens Other [employer] Other 09-29-2021 15:30-1411SjW6% (BldA) [Mass fraction]98 % Charlene Owens Other [employer] Other Encounters Encounter DateEncounter TypeCare ProviderFacilityStart: [id number]-patient / Non-visitLisa Jaleel Owens NP-C-[facility] [employer] Work Phone: Start: 09-23-2025 End: [id number] Asaad MD Work Phone: -[employer] [facility]: [facility] End: 29-88-7447Dmpsljna ReferredLisa Jaleel Owens NP-C-LAB Path Spec [facility] Start: 09-21-2025 End: 33-91-2982bowdnzwaytVrdy Asaad MD Work Phone: -[facility] [place]Start: 09-21-2025 End: 38-38-5043Cnwhjba encounter procedureLizbeth Owens NP-C-[facility] [place] Work Phone: Start: 09-21-2025 End: 61-74-3894Tnpphwh encounter statusLizbeth Owens NP-[facility]art: 06-43-4100Amjwnlo encounter statusImagail Gates MD Work Phone: [facility]: 09-14-2025 End: 64-45-3892Vqkqzfrln encounterBayley Malicki LPCNOMS [facility] HealthStart: 09-06-2025 End: 02-25-8874Umvfneef ReferredPatricsivan Dumontyolandauniversity of [facility] NONPROFIT FUNDRAISER-Lab [place] Work Phone: Start: 09-06-2025 End: 71-93-4823ogirgjdtruNqxr Asaad MD Work Phone: -[facility] ClydeStart: 09-06-2025 End: 98-76-2533Tgwmkdo encounter procedurePamonroe county medical centersivan [facility] NONPROFIT FUNDRAISER-[facility] [place] Work Phone: Start: 08-05-2025 End: 16-14-7799ifvfwvotjhBixm AsaadFacility:[facility] Start: 18-12-6457Xtf-patient / Non-visitImad Mamadou GERMAN-[facility] Work Phone: Start: 06-16-2025 End: 16-81-0418Htzebdcwt Result EncounterGeneric External Data ProviderNOMS External Department UnsolicitedStart: 06-16-2025 End: 95-45-9162Otditvnti Result EncounterGeneric External Data ProviderNOMS External Department UnsolicitedStart: 05-26-2025 End: 39-24-7547wzgyuaztelRYOJLP MALICKINot AvailableStart: 05-26-2025 End: 75-86-8248Mkybcl flowsheetBayley Malicki LPCNOMS CI BHStart: 05-26-2025 End: 79-19-8720Ulfzfe flowsheetBayley Malicki LPCNOMS CI BHStart: 05-11-2025 End: 32-53-7761Zmxpfdw encounter procedureCorey Shamika DO Work Phone: [facility] Work Phone: Start: 05-11-2025 End: 70-25-2507Qaowsbvd preventive med est patient 18-39 yrsCorey Shamika DO Work Phone: noms [facility] OBComment on above:Well woman exam with routine gynecological exam; Alcoholic cirrhosis, unspecified whether ascites present (HCC); Constipation, unspecified constipation type; Abnormal uterine bleeding (AUB)Start: 05-11-2025 End: 44-88-4573nsbxuoxkhhKJAUF FAZIONot AvailableStart: 05-11-2025 End: 61-74-0245Ohzibq flowsheetCorey Shamika DO Work Phone: noms BCP OBStart: 05-11-2025 End: 38-64-7324Pmitku flowsheetCorey Shamika DO Work Phone: noms BCP OBStart: 05-11-2025 End: 24-16-2631Mucixcuvv Result EncounterCorey Shamika DO Work Phone: noms External Department UnsolicitedStart: 04-21-2025 End: 75-10-7831upjsusxlruICWYXI MALICKINot AvailableStart: 04-21-2025 End: 99-89-5741Gcrqda flowsheetBayley Malicki LPCNOMS CI BHStart: 04-21-2025 End: 98-23-1143Fjkcuq flowsheetBayley Malicki LPCNOMS CI BHStart: 04-13-2025 End: 49-95-1056wlzxlsioziXemfcdllgJoint [facility] Work Phone: Start: 04-13-2025 End: 14-16-1289Bpjccqn encounter procedureQuorum Health Phys[facility] [place] Work Phone: Start: 04-07-2025 End: 71-19-0414iwfmoplszwWBMJKL MALICKINot AvailableStart: 03-10-2025 End: 10-36-9288ezjfiteokiNDNGHY MALICKINot AvailableStart: 03-10-2025 End: 34-22-4452Hfhapb flowsheetBayley Malicki LPCNOMS CI BHStart: 03-10-2025 End: 97-15-1798Xqvlot flowsheetBayley Malicki LPCNOMS CI BHStart: 02-24-2025 End: 98-45-0918djoqqrnkcwIYSQAT MALICKINot AvailableStart: 02-24-2025 End: 36-77-3687Wlbbax flowsheetBayley Malicki LPCNOMS CI BHStart: 02-24-2025 End: 12-76-3762Zchxxz flowsheetBayley Malicki LPCNOMS CI BHStart: 02-03-2025 End: 37-97-0629Jgtpng flowsheetBayley Malicki LPCNOMS CI BHStart: 02-03-2025 End: 90-02-6074Umddst flowsheetBayley Malicki LPCNOMS CI BHStart: 02-03-2025 End: 41-93-8058xzuxwnwmggUVVIZT MALICKINot AvailableStart: 01-10-2025 End: 74-63-8330Gviiky outpatient visit [facility] hospitalMadhuridavid Amos [facility] Work Phone: noMS CI BHComment on above:FRANKLIN (generalized anxiety disorder) (CMS/HCC); Social anxiety disorder (CMS/HCC); Alcoholic cirrhosis of liver without ascites (K70.30); History of alcohol abuseStart: 01-10-2025 End: 55-31-6109vvimwyeyujNRRXYSEJ BRITKEISHANot AvailableStart: 01-10-2025 End: 57-86-2838Veiplk Geovany Trinidad [facility] Work Phone: noMS CI BHStart: 01-10-2025 End: 42-65-3207Ubyrxf danielaRojasdavid Trinidad [facility] Work Phone: noMS CI BHStart: 12-29-2024 End: 54-49-0101bkvnggvscySPFHBP MALICKINot AvailableStart: 12-29-2024 End: 57-25-6827Pdpwok flowsheetBayley Malicki LPCNOMS CI BHStart: 12-29-2024 End: 83-42-9165Wqrftu flowsheetBayley Malicki LPCNOMS CI BHStart: 12-25-2024 End: 49-58-0815Gkkvuzf encounter procedureEd Packerk DUCK OPERATOR-C Work Phone: [facility]-Ultrasound [place] Work Phone: Start: 12-25-2024 End: 87-96-4392tntdpdejrlDkasaflf N Copeland DUCK OPERATOR-C Work Phone: [facility] Work Phone: Start: 12-13-2024 End: 43-48-8948pwchvocvmdGgaywtoai [facility] Work Phone: Start: 12-13-2024 End: 46-72-1635Gpxixdq encounter procedureQuorum Health Physician Group-[facility] Work Phone: Start: 12-08-2024 End: 62-40-7116Socpwp outpatient visit 25 minutesBobo Trinidad DUCK OPERATOR Work Phone: NOZS CI BHComment on above:FRANKLIN (generalized anxiety disorder) (CMS/HCC); Social anxiety disorder (CMS/HCC); Alcoholic cirrhosis of liver without ascites (K70.30); History of alcohol abuseStart: 12-08-2024 End: 43-22-4134kqvxbintsnHYYCARTL BRITTONNot AvailableStart: 12-07-2024 End: 22-81-1943Lewelg outpatient visit 15 minutesEd Packerk DUCK OPERATOR Work Phone: NOCM CWM FMComment on above:FRANKLIN (generalized anxiety disorder) (CMS/HCC) (Primary Dx); Alcohol use disorder in remissionStart: 12-07-2024 End: 42-87-3330nnkxsokaieCAFPUQMQ FITZGENESISTRICKNot AvailableStart: 12-07-2024 End: 08-54-5262Dnpivn flowsheetBredvinany Copeland DUCK OPERATOR Work Phone: noms CWM FMStart: 12-07-2024 End: 32-25-7645Cjtywa flowsheetBrittany Copeland DUCK OPERATOR Work Phone: noms CWM FMStart: 12-01-2024 End: 60-09-9916qlbyawclhqBOGJDY MALICKINot AvailableStart: 12-01-2024 End: 77-86-4117Yvpdss flowsheetBayley Malicki LPCNOMS CI BHStart: 12-01-2024 End: 54-81-6126Bqfoge flowsheetNav Watsonicki LPCNOMS CI BHStart: 11-08-2024 End: 92-25-1662Fhmdgt Geovany Trinidad DUCK OPERATOR Work Phone: NOMS CI BHStart: 11-08-2024 End: 17-49-0379Wvuclp Geovany Trinidad DUCK OPERATOR Work Phone: noms CI BHStart: 11-08-2024 End: 36-57-9896Bkldsl outpatient new 60 minutesBobo Trinidad DUCK OPERATOR Work Phone: noms CI BHComment on above:FRANKLIN (generalized anxiety disorder) (CMS/HCC); Social anxiety disorder (CMS/HCC); History of substance use; Alcoholic cirrhosis of liver without ascites (K70.30)Start: 11-08-2024 End: 33-22-0587utpyjrkpybQGNRAREW BRITTONNot AvailableStart: 10-25-2024 End: 26-96-8738Hdxdjswgi Result EncounterGeneric External Data ProviderNOMS External Department UnsolicitedStart: 10-25-2024 End: 40-27-8922Xzfgvtjyj Result EncounterGeneric External Data ProviderNOMS External Department UnsolicitedStart: 10-25-2024 End: 26-03-0487Ncrogrpbm encounterMelonie LUKE CWM FMStart: 10-20-2024 End: 35-40-4108Vekszxrzq Result EncounterBrash Packerk DUCK OPERATOR Work Phone: noms External Department UnsolicitedStart: 10-20-2024 End: 76-43-2119Dbxphsgzj Result EncounterBrittestrella Copeland DUCK OPERATOR Work Phone: NOMS External Department UnsolicitedStart: 09-06-2024 End: 81-85-9453Qrsgdq flowsheetEd Copeland DUCK OPERATOR Work Phone: NOMS CWM FMStart: 09-06-2024 End: 37-71-5524Fomajc flowsAmelia Copeland DUCK OPERATOR Work Phone: NOUB CWM FMStart: 09-06-2024 End: 30-20-1511Nxfrtx outpatient visit 10 minutesBrash Copeland DUCK OPERATOR Work Phone: NOMS CWM FMComment on above:FRANKLIN (generalized anxiety disorder) (CMS/HCC) (Primary Dx); Alcohol use disorder in remission; Alcoholic cirrhosis of liver without ascites (K70.30); Chronic fatigue; Psychophysiological insomniaStart: 09-06-2024 End: 09-77-9015uwzrbpqsnqHXODQVVI FITZPATRICKNot AvailableStart: 08-17-2024 End: 43-39-8187FmbfibBblfpy Mendoza MANOMS CWM FMComment on above:Alcohol use disorder in remission (Primary Dx)Start: 07-28-2024 End: 07-99-8634JqgdmrBsimxb Mendoza MANOMS CWM IMComment on above: Psychophysiological insomniaStart: 05-03-2024 End: 16-96-8925Qsimonrca Result EncounterStere Deshpande MD Work Phone: noms External Department UnsolicitedStart: 05-03-2024 End: 03-51-6243Dskkhuoog Result EncounterStere Deshpande MD Work Phone: noms External Department UnsolicitedStart: 04-16-2024 End: 24-29-4354otpvdlonvsCdqflcbefAv[facility] Health [facility] Work Phone: Start: 04-16-2024 End: 01-08-5755Jcuybib encounter procedureQuorum Health Physician Group-[facility] [place] Work Phone: Start: 01-28-2024 End: 47-78-1267Ykqzgve encounter statusSajodi LUKE HealthcareStart: 01-03-2024 End: 82-56-3202Dsmjpbqeq Result EncounterGeneric External Data ProviderNOMS External Department UnsolicitedStart: 01-03-2024 End: 84-03-1434Vxnmapweu Result EncounterGeneric External Data ProviderNOMS External Department UnsolicitedStart: 09-05-2023 End: 63-07-0677kfgljxgbpzJhgy Asaad Other [employer] Other Start: 51-56-4706Lhzmvajmf encounterImad AsaadFPG Referral CoordinatorStart: 08-08-2023 End: 80-27-7650Emjoptosu to same day surgery centerMD Shaikh Deshpande Work Phone: [facility]-Digestive Health Work Phone: Start: 08-08-2023 End: 28-30-2765dqapkuoxqbML Carneyyasir Deshpande Work Phone: [facility] Work Phone: Start: 07-30-2023 End: 45-16-6655iwzlydmdniZvth Asaad Other [employer] Other Start: 24-16-9596Cuzoiumth encounterImad AsaadFPG GastroenterologyStart: 06-30-2023 End: 19-66-1984anaqmiovtwKiyv Asaad Other [employer] Other Start: 47-74-5402Qtcyjw outpatient visit 25 minutes Imad AsaadFPG GastroenterologyStart: 06-16-2023 End: 29-52-8393Hxwgwzr encounter procedureMD Jeramy Work Phone: [facility] [place] Work Phone: Start: 06-16-2023 End: 83-10-9388ttmtlzfevnRuhufx Bailey Other [employer] Other Start: 92-64-4204Hotdrw outpatient visit 15 minutes Ann PereraFPG Urgent Care ClydeStart: 04-15-2023 End: 97-03-8244kgxngzoocaIKSCRW H FAWWADFacility:H9Ghwbl: 02-14-2023 End: 10-67-5846cuaenqotjqYS RODNEY Hemal JOHNFacility:I2Bngvw: 01-18-2023 End: 25-06-9442ujkvitmyetNreule Dymond Other [employer] Other Start: 82-62-3046Fyyonj outpatient visit 15 minutes Charlene GracielaFPG Urgent Care ClydeStart: 01-06-2023 End: 58-51-7404uvbldabglvKK CHALO SHAMIKA .Facility:C4Uuybs: 11-25-2022 End: 17-02-5302peqscneqyjKCKCPZ H FAWWADFacility:W4Dmsml: 11-21-2022 End: 26-96-4409pbsadexlzsXI CHALO SHAMIKA .Facility:Z1Kmqdn: 10-24-2022 End: 14-91-0498wxpcorxdlnOktfc Keller Other [facility] [employer] Other Start: 68-81-4128Shinfr outpatient visit 25 minutes Sydnee KongFPMonster Urgent Care ClydeStart: 10-15-2022 End: 74-62-2301qnqqshcktnSTZSXM H FAWWADFacility:U6Nzhsa: 08-13-2022 End: 89-82-5563woqtcjlsqdGVHQHB H FAWWADFacility:L6Khpbb: 05-08-2022 End: 35-42-8571scjpunhxumGegdc Hycain Other [employer] Other Start: 67-29-8226Ougpikhiz encounterDavigail HykesFPG GastroenterologyStart: 04-23-2022 End: 81-12-2708dpcwpmkirnUupiu Hykes Other [employer] Other Start: 11-92-1661Sqngksttd encounterDavid HykesFPG GastroenterologyStart: 04-16-2022 End: 57-44-5361gytkgcndmoEnuko Hykes Other [employer] Other Start: 09-16-1604Adubtz outpatient visit 25 minutes Rodney HykesFPG GastroenterologyStart: 03-04-2022 End: 98-93-1791iyolywajntXwxvq Hykes Other [employer] Other Start: 39-82-1999Wntsrcefg encounterDavid HykesFPG GastroenterologyStart: 12-24-2021 End: 12-45-7694vjrzptrdbdErycx Hykes Other [employer] Other Start: 87-71-4166Rqcddxtme encounterDavid HykesFPG GastroenterologyStart: 12-14-2021 End: 02-46-1259eaoditgdmeUielg Hykes Other [employer] Other Start: 43-97-8507Khwbtryah encounterDavid HykesFPG GastroenterologyStart: 60-09-8542Uwogyh outpatient visit 15 minutesDavid Hykes FPG GastroenterologyStart: 56-30-8186Mfaldg outpatient visit 15 minutesPamela DymondFPG Urgent Care [place] Procedures DateProcedureProcedure DetailPerforming ClinicianStart: 48-06-4013Lsayg Strep (POC)Vicky Gates MD Work Phone: Start: 73-90-4807Afnlzb cultureVicky Gates MD Work Phone: Start: 04-27-7141TYE CBC WITH AUTO DIFFGeneric External Data ProviderStart: 05-26-2025 End: 60-89-4417Zgypgqmmlmoer w/patient 30 minutesGAD (generalized anxiety disorder)Nav Guzmán LPCComment on above:FRANKLIN (generalized anxiety disorder) ; Social anxiety disorderStart: 00-70-2889IJK,APTIMA HPV,AGE GDLNGeneric External Data ProviderStart: 89-59-7185Uztmcdzqxpc observation [Identifier] in Cervix by Cyto stainNav Guzmán LPCStart: 04-21-2025 End: 87-71-4313Ighqftsakvuwo w/patient 60 minutesGAD (generalized anxiety disorder) (CMS/HCC)Nav Guzmán LPCComment on above:FRANKLIN (generalized anxiety disorder) (CMS/HCC); Social anxiety disorder (CMS/HCC)Start: 03-10-2025 End: 68-56-2025Ksodmychxmqdu w/patient 60 minutesGAD (generalized anxiety disorder) (CMS/HCC)Nav Guzmán LPCComment on above:FRANKLIN (generalized anxiety disorder) (CMS/HCC)Start: 02-24-2025 End: 34-98-1740Myswvjjquueqs w/patient 60 minutesGAD (generalized anxiety disorder) (CMS/HCC)Nav Guzmán LPCComment on above:FRANKLIN (generalized anxiety disorder) (CMS/HCC)Start: 12-29-2024 End: 02-22-0480Ajrushnhqioim w/patient 60 minutesGAD (generalized anxiety disorder) (CMS/HCC)Nav Guzmán LPCComment on above:FRANKLIN (generalized anxiety disorder) (CMS/HCC); Social anxiety disorder (CMS/HCC)Start: 19-16-3996Zwmweisptjgigig of liver Ed Copeland DUCK OPERATOR-C Work Phone: Start: 12-01-2024 End: 85-57-0491Ohamkdcusgd diagnostic evaluationGAD (generalized anxiety disorder) (CMS/HCC)Nav Guzmán LPCComment on above:FRANKLIN (generalized anxiety disorder) (CMS/HCC); Alcohol use disorder in remission; Social anxiety disorder (CMS/HCC)Start: 17-72-7597WVEYGA BLOOD*Generic External Data ProviderStart: 69-85-2900HZY FERRITINGeneric External Data ProviderStart: 15-77-6845EMJJL IRON AND TIBCGeneric External Data ProviderStart: 42-11-4086PFY CBC WITH AUTO DIFFBrittany Copeland DUCK OPERATOR Work Phone: Start: 80-83-2706ES RIGHT UPPER QUADRANTStere Deshpande MD Work Phone: Start: 75-64-1208Cupsa Strep (POC)Start: 42-37-6449GX RIGHT UPPER QUADRANTGeneric External Data ProviderStart: 08-08-2023 EsophagogastroduodenoscopyMD Shaikh Jeramy Work Phone: Start: 97-32-6456F-ray of right footMD Shaikh Jeramy Work Phone: Plan of Treatment DateCare ActivityDetailAuthorStart: 92-10-1905Bdhondpni for malignant neoplasm of cervixNOMS HealthcareStart: 05-15-2026 End: 85-76-1162Hrvjvpl encounter procedureNOMS BCP OBStart: 68-37-4887Ksmbyspa identified in Urine by CultureUrine [facility] Start: 73-74-7512Hunky [facility] Centertart: 09-06-2025 Bacteria identified in Throat by Aerobe cultureBl[facility]ard Valley Health [facility] Start: 80-73-0771Mvkucs cultureThroat [facility] Start: 30-48-6022ZdoytlqmgHenry County Hospitaltart: 55-40-1613HNBBZ-19 Vaccine ( season)COVID-19 Vaccine ( season)[facility] Start: 77-44-5979Pwynptqfs vaccinationNOMS HealthcareStart: 05-26-2025 End: 84-38-1330Yeejrp Work05/26/2025 3:00 PM EDT Social Work [facility] CI [address] [place] [address] Nav Guzmán LPC NOMS CI BHStart: 05-11-2025 End: 20-38-1666Najmhua encounter procedureNOMS BCP OBComment on above:Arrived Start: 05-11-2025 End: 98-24-3872DD Liver limitedUS abdomen limited liver Imaging Routine Alcoholic cirrhosis, unspecified whether ascites present (HCC) Expected: 05/11/2025, Expires: 05/11/2026[facility] Work Phone: comment on above:Expected: 05/11/2025, Expires: 05/11/2026Start: 05-11-2025 End: 99-28-0452YJ PelvisUS Pelvis w/ TV Imaging Routine Abnormal uterine bleeding (AUB) Expected: 05/11/2025, Expires: 11/10/2025NOMS HealthcareComment on above:Expected: 05/11/2025, Expires: 11/10/2025Start: 05-05-2025 End: 28-94-6779Jlpwel Work05/05/2025 3:00 PM EDT Social Work [facility] CI BH [address] [place] [address] Nav Guzmán LPC NOMS CI BHStart: 04-21-2025 End: 18-68-7371Ikvmud WorkNOMS CI BHComment on above:ArrivedStart: 04-07-2025 End: 96-72-2144Jufaes Work04/07/2025 3:00 PM EDT Social Work [facility] CI BH [address] [place] [address] Nav Guzmán LPC NOMS CI BHStart: 03-10-2025 End: 91-28-4842Kqsquo Work03/10/2025 3:00 PM EDT Social Work [facility] CI BH [address] [place] [address] Nav Guzmán LPC NOMS CI BHStart: 03-07-2025 End: 43-50-4722Msnwngv encounter procedureNOMS CWM FMStart: 02-24-2025 End: 55-65-8043Nguzwn Work02/24/2025 3:00 PM EDT Social Work [facility] CI BH [address] [place] [address] Nav Guzmán LPC NOMS CI BHStart: 02-10-2025 End: 78-52-6321Esleri Work02/10/2025 3:00 PM EDT Social Work [facility] CI BH [address] [place] [address] Nav Guzmán LPC NOMS CI BHStart: 02-03-2025 End: 74-80-4771Slcxon Work02/03/2025 9:00 AM EDT Social Work [facility] CI BH [address] [place] [address] Nav Guzmán LPC ArrivedNOMS CI BHComment on above:ArrivedStart: 01-25-2025 End: 11-93-7876Locdei Work01/25/2025 3:00 PM EDT Social Work [facility] SWS BH [address] [place] [address] Nav Guzmán LPCNO SWS BHStart: 01-10-2025 End: 39-46-0191Ornjfqt encounter procedureNOMS CI BHComment on above:FRANKLIN (generalized anxiety disorder) (CMS/HCC); Social anxiety disorder (CMS/HCC); Alcoholic cirrhosis of liver without ascites (K70.30); History of alcohol abuseStart: 12-29-2024 End: 72-13-1695Putzdz WorkNOMS CI BHComment on above:ArrivedStart: 12-08-2024 End: 62-80-6087Acuvzau encounter yoofhzqgy99/22/2025 3:30 PM EST Office Visit [facility] BH [address] [place] [address] Bobo Trinidad NP [address] [place] [address] NOMS CI BHStart: 12-07-2024 End: 86-04-5549Gmksmfx encounter procedureNOMS CWM FMComment on above:Arrived Start: 12-06-2024 End: 03-38-5350Qbbktvl encounter tfpunsyff39/ 3:30 PM EST Office Visit [facility] CI [address] [place] [address] Bobo Trinidad, REJI [address] [place] [address] NOMS CI BHStart: 12-01-2024 End: 38-02-1688Qqfgga WorkNOMS CI BHComment on above:ArrivedStart: 11-08-2024 End: 98-72-0833Pgnqzqu encounter jishksyma49/23/2024 10:00 AM EST Office Visit [facility] [address] [place] [address] Bobo Trinidad NP [address] [place] [address] FRANKLIN (generalized anxiety disorder) (CMS/HCC)NOMS CI BHComment on above:FRANKLIN (generalized anxiety disorder) (CMS/HCC) Start: 10-25-2024 End: 10-78-3844Nggeozjtu (Vitamin B12) [Mass/volume] in Serum or PlasmaVitamin B12 Lab Routine Anemia, unspecified type Expected: 10/25/2024 (Approximate), Expires: 10/25/2025[facility] Work Phone: Comment on above:Expected: 10/25/2024 (Approximate), Expires: 10/25/2025Start: 10-25-2024 End: 29-06-3678Gexslgfc [Mass/volume] in Serum or PlasmaFerritin Lab Routine Anemia, unspecified type Expected: 10/25/2024 (Approximate), Expires: 10/25/2025 NOMS HealthcareComment on above:Expected: 10/25/2024 (Approximate), Expires: 10/25/2025Start: 10-25-2024 End: 03-66-8781Abun + transferrin + TIBCIron + transferrin + TIBC Lab Routine Anemia, unspecified type Expected: 10/25/2024 (Approximate), Expires: 10/25/2025 NOMS HealthcareComment on above:Expected: 10/25/2024 (Approximate), Expires: 10/25/2025Start: 10-25-2024 End: 03-47-2878Nufmcqnjesx of occult blood in single stool specimenOccult blood x 1, stool Lab Routine Anemia, unspecified type Expected: 10/25/2024 (Approximate), Expires: 10/25/2025NOGA HealthcareComment on above:Expected: 10/25/2024 (Approximate), Expires: 10/25/2025Start: 09-06-2024 End: 886272-wnzkixaqsshpuy D3 [Mass/volume] in Serum or PlasmaVitamin D 25 hydroxy Lab Routine Alcohol use disorder in remission Chronic fatigue Expected: 09/06/2024 (Approximate), Expires: 09/06/2025NOGA HealthcareComment on above: Expected: 09/06/2024 (Approximate), Expires: 09/06/2025Start: 09-06-2024 End: 71-51-5982Iusbqc RBCFolate RBC Lab Routine Alcohol use disorder in remission Chronic fatigue Expected: 09/06/2024 (Approximate), Expires: 09/06/2025NOGA HealthcareComment on above:Expected: 09/06/2024 (Approximate), Expires: 09/06/2025Start: 09-06-2024 End: 59-20-7746Tdelxhk T1Ludromn B1 Lab Routine Alcohol use disorder in remission Chronic fatigue Expected: 09/06/2024 (Approximate), Expires: 09/06/2025NOGA HealthcareComment on above:Expected: 09/06/2024 (Approximate), Expires: 09/06/2025Start: 09-06-2024 End: 01-73-7513Umzpbuv encounter procedureNOMS CWM FMComment on above:FRANKLIN (generalized anxiety disorder) (CMS/HCC) (Primary Dx)Start: 09-01-2024 End: 06-45-7115Gcxpieb encounter /16/2024 3:30 PM EDT Office Visit [facility] CWM FM [address] [place] [address] Ed Copeland NP [address] [place] [address] [facility] FMStart: 96-28-7566Oimshclsj vaccinationInfluenza Vaccine (#1)[facility] HealthcareStart: 51-18-7787SwaqddorcBlanchard Valley Health System Start: 94-61-5491Buaecrbxs for malignant neoplasm of cervixNOMS HealthcareStart: 44-74-9653ETF Vaccines (1 - 3-dose SCDM series)HPV Vaccines (1 - 3-dose SCDM series)[facility] HealthcareStart: 88-08-8176Sgymlsgki for malignant neoplasm of cervixPap SmearNOMS HealthcareStart: 89-02-0761Ulgmkhhubkfv Vaccine: Pediatrics (0 to 5 Years) and At-Risk Patients (6 to 64 Years) (1 of 2 - PCV)Pneumococcal Vaccine: Pediatrics (0 to 5 Years) and At-Risk Patients (6 to 64 Years) (1 of 2 - PCV)[facility] HealthcareStart: 36-54-1571Sygkoat of varicella vaccinationVaricella Vaccines (1 of 2 - 13+ 2-dose series)[facility] HealthcareStart: 1995 DTaP/Tdap/Td Vaccines (1 - Tdap)DTaP/Tdap/Td Vaccines (1 - Tdap)[facility] Start: 01-21-7608JUT Vaccines (1 of 1 - Standard series)MMR Vaccines (1 of 1 - Standard series)[facility] CenterBacteria identified in Throat by Aerobe culture [facility] SystemCBC W Auto Differential panel - BloodCBC and differential Lab Routine Alcohol use disorder in remission Chronic fatigue Ordered: 09/06/2024[facility] HealthcareComment on above:Ordered: 09/06/2024 Comprehensive metabolic 2000 panel - Serum or PlasmaComprehensive metabolic panel Lab Routine Alcohol use disorder in remission Chronic fatigue Ordered: 09/06/2024[facility] Healthcare Work Phone: Comment on above:Ordered: 09/06/2024omprehensive metabolic 2000 panel - Serum or PlasmaBlanchard Valley Health SystemCytology Cervical or vaginal smear or scraping studyPap Smear Pathology and Cytology Routine Well woman exam with routine gynecological exam Ordered: 05/11/2025[facility] Healthcare Work Phone: comment on above:Ordered: 05/11/2025Human papilloma virus DNA [Presence] in Unspecified specimen by Probe with amplificationHPV DNA probe, amplified Microbiology Routine Well woman exam with routine gynecological exam Ordered: 05/11/2025[facility] HealthcareComment on above:Ordered: 05/11/2025 [facility] Work [facility]: Thiamine [Moles/volume] in BloodBlanchard Valley Health SystemUrine cultureBlanchard Valley Health SystemUS LiverHCA [facility] Immunizations Immunization DateImmunizationNotesCare [id number] A vaccine, adult dosageSaebel MendozaWestfields Hospital and [id number] B vaccine, adult dosageSaebel MendozaWestfields Hospital and [id number] B vaccine, adult dosageSaebel [facility] and [id number] A vaccine, adult dosageSaebel [facility] and ClinicWquhwaptgy48-05-1029rdyncuyoo B vaccine, adult dosageSaebel Hudson Hospital and ClinicBdcilexnsa25-59-8629Tqymoaqe 500 mg Charlene Owens Other [place] Ninua Other Payers DatePayer CategoryPayerPolicy [id number]-[id number] [place] [address].9.840.762829.1.13.693.2.7.9.684047.879270.45129-32-5888Zgtidgy [employer] [id number] 2022-Present [phone] [address] [address] [place] [address].2.840.027117.1.13.693.2.7.3.365200.315 [id number] 2.16.840.1.834624.3.57[id number] 2.16.840.1.195194.3.579.2.6[id number] 2.16.840.1.895529.3.579.[id number] 2.16.840.1.692532.3.57[id number] 2.16.840.1.293839.3.57[id number] 2.16.840.1.297104.3.57[id number] 2.16.840.1.712066.3.579.[id number] 2.16.840.1.378712.3.579.2.588[id number] 2.16.840.1.093732.3.579.2.881586-49-3901Lalckdl03597173 2.16.840.1.958457.3.579.2.850328-02-9931Mqfvbrc2929404 2.16.840.1.400724.3.579.2.202739-02-8312Lvspcrq0392012 2.16.840.1.467739.3.579.2.[id number] 2..1.220459.3.579.2.079657-70-1086Lisdsff8467614 2..1.795557.3.579.2.240960-57-7010Nhxilcm5754186 2..1.280511.3.579.2.099857-21-9743Zwjrutr0186030 2..1.618823.3.579.2.713287-29-0413Fjsixcd8561782 2..1.650786.3.579.2.686272-77-9203Osrzpim1538250 2..1.023617.3.579.2.505637-55-9575Kvapela7819886 2..1.670902.3.579.2.213085-50-2430Bwyrcrd3599720 2..1.881020.3.579.2.908482-07-3774Yidhzxk3956865 2..1.309538.3.579.2.367681-33-6901ZrrqyjtH44878410 2..1.774881.19 05-37-4293Hbnxzjf73096506 2..1.837715.85Lzmurjs95649037 2..1.966298.3.579.2.206Pqzccjz55660615 2..1.780173.3.579.2.531 Alsdbrg78905409 2..1.991331.3.579.2.561Idbsjzm44428767 2..1.280148.3.579.2.531 Social History DateTypeDetailFacilityUnknown if ever smokedBarnstable Ninua Other Start: 05-04-2024 End: 01-92-3192Lkv Assigned At [facility] N[place]ua Other Start: 08-08-2023 End: 23-82-5467Mdovtbv smoking status NHISSmoker (finding)[facility]: 45-95-4438Ufl [facility]: 05-04-2024 End: 40-26-5288Asjrxlg smoking status NHISSmokes tobacco dailyNOMS Healthcare History of tobacco useCigarette SmokerNOMS HealthcareHistory of tobacco use Passive smokerNOMS HealthcareStart: 01-28-2024 End: 41-67-8258Eooyxal use and exposureSmokeless tobacco non-userNOMS Healthcare Start: 05-04-2024 End: 26-15-5789Kdzkpbqex beverage intakeEx-drinker (finding)[facility] Start: 05-04-2024 End: 22-70-8899Nkjpazo of Social functionNOMS HealthcareStart: 17-28-0946Riqbkei Comment6-10NOMS HealthcareStart: 12-15-0535Hzxnffi Commentcaffeine intake: 1-2 cups per dayNOMS HealthcareStart: 28-12-2095Vthuqv identityIdentifies as female gender (finding)[facility] HealthcareStart: 41-38-5215Lfxvgtuvh32VINW HealthcareStart: 78-08-8095Uasrmxf Commentcaffeine intake: 3 cups per day coffeeNOMS Healthcare Start: 73-23-1811Pjj often do you need to have someone [...] months, were you homeless or living in alf [including now]?No [facility] HealthcareStart: 12-13-2024 End: 22-26-3605WfeIzjhfl (finding)[facility]tart: 12-22-2221Uqxrfioeh beverage intakeLifetime non-drinker (finding)[facility] Goals DatePatient GoalDesired Activity/State Functional Status IjeyBaaqbitwqgPjkfpfXqnwyuzh39-49-5382Hxgkhnftuta anxiety disorder 7 item (FRANKLIN-7)[facility] CenterDidxbcmmhw75-68-8867Jnbje score [AUDIT-C]0 11/30/2024 9:20 AM EST Mychart, GenericSaint John's Regional Health CenterBhdllwapsj50-37-1838Hej often do you have a drink containing alcohol?Never 11/30/2024 9:20 AM EST Mychart, Generic NeverNOMS Dgkaefxkwa79-78-0782Ehvbpnojzz statusPatient does not drink 11/30/2024 9:20 AM EST Mychart, Generic Patient does not drinkSaint John's Regional Health CenterZtsrhjkncu86-82-6034Exw often do you have 6 or more drinks on 1 occasion?Never 11/30/2024 9:20 AM EST Mychart, Generic NeverNOGA Izvfrftxga09-77-2442Zsrmupf Health Questionnaire 2 item (PHQ- 2) [Reported][facility] CenterVbnssymdld80-85-1311EOF-0 quick depression assessment panel [Reported.PHQ][facility] CenterFwdccgsfgd47-48-6941Netjudc Health Questionnaire 2 item (PHQ- 2) [Reported][facility] Work Phone: [phone])931-737713546-18-9491PHQ-5 quick depression assessment panel [Reported.PHQ][facility] Clinical Notes 08-10-2021 to 09-14-2025 Note Date & RdehRovqOobeenbv03-17-7114 Telephone encounter Note* Telephone Encounter - Nav Guzmán LPC - 09/14/2025 9:44 AM EDT Clinician spoke to client over the phone and explained resignation, offered transfer/referral options, and offered resources. Client declined at this time, said, I'm doing good , and clinician encouraged client to reach out to [facility] if she wants counseling in the future. [facility] CenterUocqtdettb55-26-0599 Miscellaneous Notes* Telephone Encounter - Nav Guzmán LPC - 09/14/2025 9:44 AM EDT Clinician spoke to client over the phone and explained resignation, offered transfer/referral options, and offered resources. Client declined at this time, said, I'm doing good , and clinician encouraged client to reach out to [facility] if she wants counseling in the future. documented in this encounterSaint John's Regional Health CenterTzhppidmbl29-67-6122 Evaluation note* Diagnosis Onset Date Resolution Status Admit Date Chills acuteOctober 2024 5:37pm [facility] Work Phone: 1(793) 522-311810-21-2025 Evaluation note* Diagnosis Onset Date Resolution Status Admit Date Chills resolvedOctober 2024 5:37pmAlcoholic cirrhosis of liver with ascitesacute September 21, 2025 10:23amAnxietyacuteNov2024 10:23amEncounter for wellness examinationacuteSeptember 21, 2025 10:23amFatigueacuteNov2024 10:23amLow thyroid stimulating hormone (TSH) levelacuteSeptember 21, 2025 10:23am [facility] Work Phone: 1(869) 987-210906-25-2025 History of Present illness Narrative* Lexie Huang [...] nursing note reviewed. Exam conducted with a environmental studies program director present. Vitals: Estimated body mass index is [...] them. Patient can also view results via Appointuithart. I reinforced importance of condom use for [...] of: Josey Chavez PA-C documented in this encounterSaint John's Regional Health CenterGkxlygchkn41-00-2275 History of Present illness Narrative* Bobo Trinidad, [...] in her esophagus. She continues to see Nav for counseling on a regular basis. SUBJECTIVE: [...] Referring Physician (Gastroenterology) Nav Guzmán LPC as Head Usher (Behavioral Health) PSYCHIATRIC REVIEW OF SYMPTOMS AND [...] care as described above. documented in this encounterSaint John's Regional Health CenterJdkbanddag22-11-7916 Radiology Diagnostic study [facility] [place] [address] Ultrasound Report Signed Patient: Radha Hines MR#: [id number] : 1990 Acct:[id number] Age/Sex: 34 / F ADM Date: 5 Loc: Room: Type: [facility] Attending Dr: Vicky Gates MD Ordering Provider: [...] Ishmael Nelson M.D.12/25/2024 10:53 AM Dictation Location: [place] [address] Tech: Ly Leigh Transcribed By: JOLENE 12/25/24 1053 Dictated By: Ishmael Nelson II, MD 12/25/24 1047 Signed By: 12/25/24 1053 [facility] Work Phone: 1(272) 208-413801-27-2025 Evaluation note* Author Vicky Gates [facility] SystemAuthoredJanuary 2024 3:42vo75-ntby-vre 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 Laboratory work-up for other etiologies of chronic liver disease including infectious autoimmune or metabolic diseases was done at the [facility]. We will obtain the results of [...] prescribed propranolol by her PCP for anxiety [facility] Work Phone: 1(623) 722-888201-22-2025 History of Present illness Narrative* Bobo Trinidad, [...] developed swelling in knees and ankles over [place]. She saw PCP yesterday who recommended to [...] Propranolol dose increased. She continues to see Nav for counseling. Her last appointment was on [...] to age Memory/Concentration Short term intact and longterm intact Insight/Judgement Fair OBJECTIVE: Visit Vitals BP [...] care as described above. documented in this encounterSaint John's Regional Health CenterPasritvacn58-38-5441 History of Present illness Narrative* Ed Copeland NP - 12/07/2024 3:30 PM EST Images from the original note were not included. Subjective Patient ID: Radha Hines is a 34 y.o. female who presents for Follow-up. HPI Specialists: Dr. Fuentes- FALGUNI FRANKLIN: Was referred to . Now taking propanolol 10mg TID for anxiety. Is now doing CBT. States over [place] she had swelling in knees and ankles. [...] this time. Discuss further options with Bobo BROOKS tomorrow at her OV. Is following with Dr. Aguila in [place] for cirrhosis on 12/13/2024. Review of Systems [...] anxiety. Is now doing CBT. States over [place] she had swelling in knees and ankles. [...] this time. Discuss further options with Bobo BROOKS tomorrow at her OV. Is following with Dr. Aguila in [place] for cirrhosis on 12/13/2024. * Ed Copeland [...] OV. Is following with Dr. Aguila in [place] for cirrhosis on 12/13/2024. documented in this encounterSaint John's Regional Health CenterIsfecuhxrp38-57-2367 History of Present illness Narrative* Bobo Trinidad [...] anxiety. Developmental History: Patient was raised in [place] by biological parents up until 1st/2nd grade.She states parents and then she moved to [place] with her mother. She states she would travel up to [place] in the stover to visit her father. Overall, she reports having a good childhood. Her father did remarry for a short period of time before he got again. She ended up moving back to [facility] after graduating high school. She obtained her associates degree, and then moved to [place] [facility] to get her bachelor's degree. She states she started drinking alcohol heavily when she moved to [place]. She ended up moving to [place] in 2013 to help her father who owns some businesses in [place]. Past Psychiatric History: Previous diagnoses: None Previous [...] harm: Denies Education: Graduated high school in [place]. Received associates degree in [facility] and bachelor's degree in [place] [employer] [employer]. Legal issues: Had a DUI in her past PHQ-9 score: 8 FRANKLIN-7 score: 12 Substance Abuse History: Recreational drugs: Denies Use of alcohol: Reports drinking heavily when she was living in [place]. States she was diagnosed with liver cirrhosis [...] exposure: Current Smokeless tobacco: Never Tobacco comments: 6- Vaping Use Vaping status: Never Used Substance [...] 7 year old daughter Occupation: Works at [employer] since 2015 in [employer]. PSYCHIATRIC REVIEW OF SYMPTOMS AND MENTAL STATUS [...] to age Memory/Concentration Short term intact and rodent exterminator intact Insight/Judgement Fair OBJECTIVE: Visit Vitals BP [...] Fear, anxiety and avoidance causes clinical distress. A[facility] liver specialist [place] - November appt. Assessment/Plan Diagnoses and all orders for [...] the local ER or call Suicide Hotline (413) for any psychosis, suicidal or homicidal ideation, or with any risk of harm to self or others. Patient was seen Face to Face, Total time spent with patient was 60 minutes, which includes reviewing chart documents, previous notes/records, counseling and discussion with patient and/or coordination of care as described above. documented in this encounterSaint John's Regional Health CenterIyvvyidptv01-03-0376 Telephone encounter Note* Telephone Encounter - Melonie [...] 10 3/uL [facility] CMP (CMP) (FOR REMOTE [facility] USE) Result Value Ref Range SODIUM 140 136 - 145 mmol/L POTASSIUM 3.6 3.5 - 5.1 mmol/L CHLORIDE 104 98 - 107 mmol/L CARBON DIOXIDE 26.6 21.0 - 32.0 mmol/L ANION GAP 13.0 GLUCOSE 127 (H) 74 - 106 mg/dL BLOOD UREA NITROGEN 13.0 7.0 - 18.0 mg/dL CREATININE 0.80 0.55 - 1.02 mg/dL TBH EGFR-AF SUDANESE >60 >=60 mL/min/1.73m 2 TBH EGFR-NON AF SUDANESE >60 >=60 mL/min/1.73m 2 BUN CREATININE RATIO [...] GLOBULIN 3.3 g/dL ALBUMIN GLOBULIN RATIO 1.1 TBH VITAMIN D 25 OH Result Value Ref Range VITAMIN D 40.7 ng/mL Comment: <20 ng/mL Vit D deficient 20-<30 ng/mL Vit D insufficient 30-100 ng/mL Vit D sufficient >100 ng/mL Potential Toxicity 9:16 AM Results were successfully communicated with the patient and they acknowledged their understanding. Would like anemia panel sent to [facility] [employer] Te[id number] Telephone encounter Note* Telephone Encounter - Melonie Madden MA - 10/25/2024 9:15 AM EST ----- Message from [employer] sent at 10/21/2024 11:49 AM EST ----- Labs all look good, except slight anemia. We csn do an anemia workup if she would like. [employer] [id number] Miscellaneous Notes* Telephone Encounter - Melonie Madden [...] 10 3/uL [facility] CMP (CMP) (FOR REMOTE [facility] USE) Result Value Ref Range SODIUM 140 136 - 145 mmol/L POTASSIUM 3.6 3.5 - 5.1 mmol/L CHLORIDE 104 98 - 107 mmol/L CARBON DIOXIDE 26.6 21.0 - 32.0 mmol/L ANION GAP 13.0 GLUCOSE 127 (H) 74 - 106 mg/dL BLOOD UREA NITROGEN 13.0 7.0 - 18.0 mg/dL CREATININE 0.80 0.55 - 1.02 mg/dL TBH EGFR-AF SUDANESE >60 >=60 mL/min/1.73m 2 TBH EGFR-NON AF SUDANESE >60 >=60 mL/min/1.73m 2 BUN CREATININE RATIO [...] GLOBULIN 3.3 g/dL ALBUMIN GLOBULIN RATIO 1.1 TB VITAMIN D 25 OH Result Value Ref Range VITAMIN D 40.7 ng/mL Comment: <20 ng/mL Vit D deficient 20-<30 ng/mL Vit D insufficient 30-100 ng/mL Vit D sufficient >100 ng/mL Potential Toxicity 9:16 AM Results were successfully communicated with the patient and they acknowledged their understanding. Would like anemia panel sent to [facility] * Telephone Encounter - Melonie Madden MA - 10/25/2024 9:15 AM EST ----- Message from Ed Copeland sent at 10/21/2024 11:49 AM EST ----- Labs all look good, except slight anemia. We csn do an anemia workup if she would like. documented in this encounterSaint John's Regional Health CenterZyrgiaveaz75-51-6929 History of Present illness Narrative* Ed Copeland NP - 09/06/2024 5:19 PM EDTAssociated Problem(s): FRANKLIN (generalized anxiety disorder) ([facility] Pt reports she was previously taking Effexor, benzodiazepines and hydroxyzine. She is not on any medications currently. She feels her anxiety is worsening but is very hesitant to initiate any new medications due to the effects she had when coming off of Effexor. Denies SI/HI. Agreeable to seeing [facility] therapy and possible medication management if necessary. Referral sent to . * Ed Copeland NP - 09/06/2024 9:00 AM EDT Images from the original note were not included. Subjective Patient ID: Radha Hines is a 34 y.o. female who presents for Follow-up. HPI Specialists: Dr. Fuentes- FALGUNI FRANKLIN: Pt reports she was previously taking Effexor, benzodiazepines and hydroxyzine. She is not on any medications currently. She feels her anxiety is worsening but is very hesitant to initiate any new medications due to the effects she had when coming off of Effexor. Denies SI/HI. Agreeable to seeing BHfor therapy and possible medication management if necessary. [...] (Ambien) 5 MG tablet documented in this encounterSaint John's Regional Health CenterCqxxjquvjw30-84-0006 Instructions* Patient Instructions* Ed Copeland NP - 09/06/2024 9:00 AM EDT Have lab work completed. Not fasting. Referral sent to [facility] for Behavioral [facility]- they will call you. If you don't hear from them in 2 weeks, call my office! documented in this encounterSaint John's Regional Health CenterZxtqxzhdev93-28-4136 Procedure [facility]08-14-2023 Evaluation note* Encounter Date Diagnosis Assessment Notes Treatment Notes Treatment Clinical Notes Jun, Alcoholic cirrhosis of liver wit h ascites (ICD-10 - K70.31) Jun,Right upper quadrant abdominal pain (ICD-10 - R10.11) Jun,Other ascites (ICD-10 - R18.8) [employer] Other 07-31-2023 Evaluation note* Encounter Date Diagnosis [...] right foot compared to the left foot. [employer] Other 03-04-2023 Evaluation note* Encounter Date Diagnosis [...] days. Jan,ommunicable disease contact (ICD-10 - Z20.9) [employer] Other 12-08-2022 Evaluation note* Encounter Date Diagnosis [...] understanding and is agreeable to treatment plan [employer] Other 06-22-2022 Evaluation note* Encounter Date Diagnosis Assessment Notes Treatment Notes Treatment Clinical Notes Apr, Abdominal pain (ICD-10 - R10.9) [employer] Other 05-31-2022 Evaluation note* Encounter Date Diagnosis Assessment Notes Treatment Notes Treatment Clinical Notes March, Alcoholic cirrhosis of liver wit h ascites (ICD-10 - K70.31) March,bnormal ultrasound (ICD-10 - R93.89)CT ABD/ PELVIS W/ CONTRAST March,bdominal pain (ICD-10 - R10.9)START TRIAL OF LEVSIN S/L BID OBTAIN LABS AND LIVER US FROM [facility] CT ABD/ PELVIS W/ AND W/0 CONTRAST TRIPHASIC ATTN LIVER [employer] Other 02-07-2022 Evaluation note* Encounter Date Diagnosis Assessment Notes Treatment Notes Treatment Clinical Notes Dec, Alcoholic cirrhosis of liver wit h ascites (ICD-10 - K70.31) [employer] Other 01-28-2022 Evaluation note* Encounter Date Diagnosis Assessment Notes Treatment Notes Treatment Clinical Notes Nov, Alcoholic cirrhosis of liver wit h ascites (ICD-10 - K70.31) [employer] Other 01-10-2022 NoteHNO ID: [id number] Author: Vicky Gates MD Service: ? 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 3. (more content not included)...[facility]10-05-2021 Evaluation note* Encounter Date Diagnosis Assessment Notes Treatment Notes Treatment Clinical Notes Aug, Alcoholic cirrhosis of liver wit h ascites (ICD-10 - K70.31) Cirrhosis home care material was printed CONTINUE TO AVOID ALCOHOL Aug,bdominal pain (ICD-10 - R10.9) [employer] Other 09-29-2021 Evaluation note* Encounter Date Diagnosis [...] Patient care instructions given in writting by [facility] Care At Home document. [employer] Other 09-24-2021 NoteHNO ID: [id number] Author: Ulices Clemons MD Service: ? Author [...] hypertension. 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 Patient presented to [facility] at beginning of May for RUE ecchymosis. She was noted to have elevated LFTs and advised to stop drinking alcohol. She established care with PCP Elen Deshpande MD who instructed her to go to [facility] ER for jaundice and RUQ pain. Upon admit to [facility] on 06/08/2021, labs revealed a significant elevation [...] Neuro: Gait normal. Sensation grossly intact. IMAGING: [facility]) 06/08/2021 CT A/P (Images Uploaded/Report Scanned) 06/11/2021 [...] including abdominal pain, asci (more content not included)...[facility] noteNo InformationNort Ninua Other Evaluation noteNo assessment information available [facility] Work Phone: Evaluation note* Diagnosis Onset Date Resolution Status Sore throat noneactive [facility] Work Phone: Evaluation note* Diagnosis Alcohol use disorder in remission- Primary documented in this encounter [facility] HealthcareEvaluation note* Diagnosis Alcohol use disorder in remission- Primary Alcoholic cirrhosis of liver without ascites (K70.30) Idiopathic urticaria FRANKLIN (generalized anxiety disorder) ([facility]) Generalized anxiety disorder Chronic fatigue Other malaise [...] encounter [facility] HealthcareEvaluation note* Author Vicky Gates [facility] SystemAuthoredJanuary 2024 3:56ty62-zthw-mwk 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 Laboratory work-up for other etiologies of chronic liver disease including infectious autoimmune or metabolic diseases was done at the [facility]. We will obtain the results of [...] prescribed propranolol by her PCP for anxiety [facility] Work Phone: Evaluation note* Diagnosis Alcohol use [...] HealthcareHistory and physical note Author Vicky Gates [facility] August 08, 2023 10:00amNote Date/TimeSeptember 2022 9:56[place] [address] Gastroenterology H&P Signed Patient: Radha Hines MR#: [id number] : 1990 Acct:[id number] Age/Sex: 33 / F Adm Date: 3 Loc: Room: Type: [facility] Attending Dr: Vicky Gates MD Copies to: [...] signed by Vicky Gates MD> 08/08/23 1000 [facility] Work Phone: History general Narrative - Reported* Type Description Date Medical History EtOH cirrhosis Medical HistoryanxietyMedical Historychronic depressionSurgical History appendectomySurgical HistoryD&CHospitalization Historysee above [employer] Other History general Narrative - Reported* Type Description Date Medical History EtOH cirrhosis Medical HistoryanxietySurgical HistoryappendectomySurgical HistoryD&C Hospitalization Historysee above [employer] Other Hospital Discharge instructions Additional Instructions DISCHARGE [...] problems. -Follow up with PCP. -Office number [phone]. [facility] Work Phone: Hospital Discharge instructions Additional Instructions [...] -Follow up in the office -Office number [phone]. [facility] Work Phone: Reason for referral (narrative)No reason for referral information availableKettering Health Work Phone: Summary Purpose Family History No Family History Records Found Relationship Condition Age at Onset Recorded Date/T jolynn grandparent Malignant neoplasm of breast Unknown grandparentMalignant neoplasm of throatUnknowngrandparentMalignant neoplasm of brainUnknown Advance Directives No Advanced Directives Records Found [...] (TSH) le stacy September 21, 2025 10:23am Chief Complaint Admit Date Cirrhosis August 05, 2025 7:05am chills, congestion September 06, 2025 5 :37pm J02.9 September 06, 2025 6 :20pm ANNUAL WELLNESS September 21, 2025 1 0:23am Unknown September 23, 2025 8 :42am Additional Source Comments INFORMATION SOURCE (unrecogn ized section and content) DATE CREATED AUTHOR 02/06/2022 [facility] DATE CREATED AUTHOR AUTHOR'S ORGANIZ ATION 04/25/2023 [facility] DATE CREATED AUTHOR AUTHOR'S ORGANIZ ATION 05/30/2025 [facility] EPIC DATE CREATED AUTHOR AUTHOR'S ORGANIZ ATION 09/25/2025 [facility] REASON FOR VISIT (unrecogniz ed section and content) ReasonOnset DateCommentsMed [id number]-upReasonOnset DateCommentsMed Ezpanf544ReasonCommentsPsychiatric EvaluationSpecialty Diagnoses / ProceduresReferred By ContactReferred To ContactBehavioral Health Diagnoses FRANKLIN (generalized anxiety disorder) ([facility]) Procedures [place] [facility]ES Ed Copeland NP [address] [place] [address] Phone: tel: fax: Bobo Trinidad NP [address] [address] Phone: tel: fax: Referral IDStatusReasonStart DateExpiration DateVisits RequestedVisits [id number] Specialty Services Required /[id number]jgtNpdsdszxJqejrl-emWfjmhpJzpssomr Med ManagementFollow-upReasonCommentsWell Women Visit Care Teams (unrecognized [...] Start: April 16, 2024 End: April 16, 2024[facility] ProviderActiveStart: April 16, 2024 End: April 16, 2024Team MemberRelationshipSpecialtyStart DateEnd Date Randal Simms MD [address] [place] [address] PCP - [facility]06/30/24 Ed Copeland NP [address] [place] [address] [facility]06/30/24Team MemberRelationshipSpecialtyStart DateEnd Date Unallocated, Noms ProviderMD [facility] [place] [address] PCP - [facility]09/06/2410/21/24 Ed Copeland NP [address] [place] [address] Nurse [facility]06/30/24Team MemberRelationshipSpecialtyStart DateEnd Date Unallocated, Rebecas MD Becky [facility] [place] [address] PCP - [facility]09/06/2410/21/24 Ed Copeland NP [address] [place] [address] Nurse [facility]06/30/24Team MemberRelationshipSpecialtyStart DateEnd Date Ed Copeland NP [address] [place] [address] [facility]06/30/24Team MemberRelationshipSpecialtyStart DateEnd Date Ed Copeland NP [address] [place] [address] [facility]06/30/24Team MemberRelationshipSpecialtyStart DateEnd Date Ed Copeland NP [address] [place] [address] [facility]06/30/24Team MemberRelationshipSpecialtyStart DateEnd Date Ed Copeland NP [address] [place] [address] [facility]06/30/24Team MemberRelationshipSpecialtyStart DateEnd Date Ed Copeland NP [address] [place] [address] [facility]06/30/24 Vicky Gates MD [address] [address] Referring GifcldaaoGwxrzysitbbotrbi22/23/24Team MemberRelationshipSpecialtyStart DateEnd Date Ed Copeland NP [address] [place] [address] Nurse PractitionerF[facility]06/30/24 Vicky Gates MD [address] [address] [place] [address] Referring IabzrrxykErflzcfwtaireurb99/23/24Team MemberRelationshipSpecialtyStart DateEnd Date Ed Copeland NP [address] [place] [address] Nurse PractitionerFasolomon [facility] Medicine06/30/24 Vicky Gates MD [address] [address] [place] [address] Referring FouixlpplYtqixwgtkcgoygff98/23/24Team MemberRelationshipSpecialtyStart DateEnd Date Ed Copeland NP [address] [place] [address] Nurse PractitionerFasolomon [facility] Medicine06/30/24 Vicky Gates MD [address] [address] [place] [address] Referring YurujfzhbNpnhpjngbdokopak93/23/24Team MemberRelationshipSpecialtyStart DateEnd Date Ed Copeland NP [address] [place] [address] [facility]Sym[facility] Medicine06/30/24 Vicky Gates MD [address] [address] [place] [address] Referring WgdmqixtuVejcnfwkkftjeons38/23/24 Team Status: Inactive Member Role Status Dates Shaikh Jeramy MD Primary Care Provider Active Start: December 13, 2024 End: December 13, 2024ImaScottie Peteending ProviderActiveStart: December 13, 2024 End: December 13, 2024 Team Status: Active Member Role Status Dates Ed Copeland NP-C Primary Care Provider Ac tive Team Status: Inactive Member Role Status Dates Vicky Gates MD Attending Provider Active Start: December 25, 2024 End: December 25riterrie Copeland NP-CPrimary Care ProviderActive Start: December 25, 2024 End: December 25, 2024Team MemberRelationshipSpecialtyStart DateEnd Date Ed Copeland NP [address] [place] [address] Nurse PractitionerFamily Medicine06/30/24 Vicky Gates MD [address] [place] [phone] Referring OqobimtfkJolmocnysuikgnja43/23/24 Nav Guzmán LPC [facility]Ge[facility]12/22/24Team MemberRelationshipSpecialtyStart Date End Date Ed Copeland NP [address] [place] [address] Nurse PractitionerFaArchbold - [facility]06/30/24 Vicky Gates MD [address] [phone] Referring XqmmwhxjaWhdtgbzxlnlsdkqa91/23/24 Nav Guzmán LPC [facility] WorkerGe[facility]12/22/24Team MemberRelationshipSpecialtyStart Date End Date Ed Copeland, REJI Nurse PractitionerFamily Medicine06/30/24 Vicky Gates MD [address] [phone] Referring VvlbuqokvIfsuefugwniiakli05/23/24 Nav Guzmán [facility] Social Workerhavioral Health12/22/24Te MemberRelationshipSpecialtyStart Date End Date Ed Copeland NP Nurse Practitionermily Medicine06/30/24 Vicky Gates MD [address] [address] Referring FiissjxgrHohongjdfhxcflch77/23/24 Nav Guzmán [facility] Social Workerhavioral Health12/22/24 MemberRelationshipSpecialtyStart Date End Date Unallocated, [place] [address] PCP - GeneralFamily Medicine01/18/25 Ed Copeland, REJI Nurse PractitionerFamily Medicine06/30/24 Vicky Gates MD [address] [phone] Referring OjfcxlhpdMhjstwyemvitimno17/23/24 Nav Guzmán [facility] Social Workerhavioral Health12/22/24Te MemberRelationshipSpecialtyStart Date End Date Unallocated, MD [place] [address] PCP - GeneralFamily Medicine01/18/25 Ed Copeland, REJI Nurse Pract[facility]06/30/24 Vicky Gates MD [address] [place], [place] [address] Referring MicmliziiOnbifgfjpvvdhosp17/23/24 Nav Guzmán LPC [facility]12/22/24Team MemberRelationshipSpecialtyStart Date End Date Unallocated, Sallie Pena MD [address] [place] [address] PCP - [facility]01/18/25 Ed Copeland, REJI Nurse Pract[facility]erEl[facility]06/30/24 Vicky Gates MD [address] [place], [place] [address] Referring OjpkainyvOuaofhblythqmwqi58/23/24 Nav Guzmán LPC [facility]12/22/24Team MemberRelationshipSpecialtyStart Date End Date Unallocated, Sallie Pena MD [address] [place] [address] PCP - [facility]Sym[facility] Medicine01/18/25 Ed Copeland NP Nurse PractitionerSym[facility] Hospital Medicine06/30/24 Vicky Gates MD Referring EduaukbqxAcqzxbkufaujkdla47/23/24 Nav Guzmán [employer]ODUCTION EX[employer]EDIT[employer] Social WorkerGe[facility]12/22/24Team MemberRelationshipSpecialtyStart Date End Date Unallocated, Sallie Pena MD [address] [place] [address] PCP - [facility]ally [facility]01/18/25 Ed Copeland NP Nurse PractitionerSym[facility] Hospital Medicine06/30/24 Vicky Gates MD Referring NhumczgmsCkykevcznfhygrij89/23/24 Nav Guzmán [facility] Social WorkerGe[facility]12/22/24 Team Status: Inactive Member Role Status Dates Ed Copeland , DUCK OPERATOR-C Primary Care Provider Ac tive Start: April 13, 2025 End: April 13Freddy Salmon ProviderActiveStart: April 13, 2025 End: April 13, 2025Team MemberRelationshipSpecialtyStart DateEnd Date Unallocated, Sallie Pena MD [address] [place] [address] PCP - GeneralA[facility] Family Hospitally Medicine01/18/25 Ed Copeland NP [facility] Pract[facility]erEl[facility]06/30/24 Vicky Gates MD Referring EjuumxqlrIdzzrglekgkpyndo04/23/24 Nav Guzmán LPC Social WorkerGe[facility]12/22/24Team MemberRelationshipSpecialtyStart Date End Date Unallocated, Sallie Pena MD [address] [place] [address] PCP - GeneralFamily Medicine01/18/25 Ed Copeland NP Nurse PractitionerFamily Medicine06/30/24 Vicky Gates MD Referring QjwtmgijoKjetptbmrmbmqrcw75/23/24 Nav Guzmán LPC Social Workerhavioral Health12/22/24Team MemberRelationshipSpecialtyStart Date End Date Unallocated, Sallie Pena MD [address] [place] [address] PCP - GeneralFamily Medicine01/18/25 Ed Copeland NP [facility] Pract[facility]erSym[facility] Hospital Medicine06/30/24 Vicky Gates MD Referring RpknwzekvZnogokdpbvfssmbt46/23/24 Nav Guzmán LPC Social Workerhavioral Health12/22/24Team MemberRelationshipSpecialtyStart Date End Date Unallocated, Sallie Pena MD [address] [place] [address] PCP - Generalmily Medicine01/18/25 Ed Copeland NP Nurse PractitionerA[facility] Family Hospitally Medicine06/30/24 Vicky Gates MD Referring DequrlahpJhbarxzyveacrjcu72/23/24 Nav Guzmán LPC Social Workerhavioral Health12/22/24Team MemberRelationshipSpecialtyStart Date End Date Unallocated, Sallie Pena MD [address] [place] [address] PCP - [facility]Sym[facility] Medicine01/18/25 Ed Copeland NP Nurse PractitionerFasolomon [facility] Medicine06/30/24 Vicky Gates MD Referring SlnlenawtWivujklusvctctih86/23/24 Nav Guzmán LPC [facility]12/22/24Team MemberRelationshipSpecialtyStart Date End Date Unallocated, Sallie Pena MD [address] [place] [address] PCP - [facility]Sym[facility] Medicine01/18/25 Ed Copeland, REJI Nurse Pract[facility]er[facility]06/30/24 Vicky Gates MD Referring VhsrfqmgrQspdozhiypuhzttx61/23/24 Nav Guzmán LPC [facility]12/22/24 Team Status: Active Member Role Status [...] 2025 End: September 06, 2025Ness Lemon APRN DUCK OPERATOR-CAttending Provider ActiveStart: September 06, 2025 End: September [...] 2025 End: September 06, 2025Ness Lemon APRN DUCK OPERATOR-CAttending Provider ActiveStart: September 06, 2025 End: September 06, 2025 Team Status: Inactive Member Role/Relationship Status Dates DISHA Veronica RN DUCK OPERATOR-C Attending Provider Active Start: September 06, 2025 End: September 06, 2025Team MemberRelationshipSpecialtyStart DateEnd Date Shaikh Deshpande MD PCP - GeneralInternal Tzltdtvd51/1/233 Shaikh Deshpande MD PCP - GeneralInternal Medicine Randal Simms MD PCP - GeneralFamily Medicine06/30/2410 UnallocatedSallie MD [facility] [place] [address] PCP - GeneralFamily Mzkbbnmi03/21/ UnallocatedSallie MD [address] [facility] [place] [address] PCP - GeneralFamily Medicine01/18/25 Ed Copeland, REJI Nurse Practitionermily Medicine06/30/24 Vicky Gates MD [address] [place] [address] Referring OeztccagrKjkncgxhtbhaktrd26/23/24 Nav Guzmán LPC Social WorkerGe[facility]12/22/24Team MemberRelationshipSpecialtyStart Date End Date Shaikh Deshpande MD PCP - GeneralInternal Medicine Randal Simms MD PCP - GeneralFamily Medicine06/30/2410 Unallocated, Sallie Pena MD [address] [place] [address] PCP - GeneralFamily Lgvtalto23/21/ Unallocated, Sallie Pena MD [address] [place] [address] PCP - GeneralFamily Medicine01/18/25 Ed Copeland, REJI Nurse PractitionerA[facility] Holy Family Hospitally Medicine06/30/24 Vicky Gates MD [facility] [place] [address] Referring ClscvexfdFaflboymnwriptyz31/23/24 Nav Guzmán LPC Social WorkerGe[facility]er [facility]12/22/24Team MemberRelationshipSpecialtyStart Date End Date Unallocated, Sallie Pena MD [address] [facility] [address] PCP - GeneralFasolomon [facility] Medicine01/18/25 Ed Copeland NP Nurse PractitionerFactly Medicine06/30/24 Vicky Gates MD Referring TjwfuphhrAfcojxdygzddiogv96/23/24 Nav Guzmán LPC Social WorkerGeisinger [facility]12/22/24 Team Status: Active Member Role/Relationship Status Dates Lizbeth Owens DUCK OPERATOR-C Primary Care Provider Active Team Status: Inactive Member Role/Relationship Status Dates DISHA Veronica RN DUCK OPERATOR-C Attending Provider Active Start: September 06, 2025 End: September 06, 2025 Team Status: Inactive Member Role/Relationship Status Dates Lizbeth Owens DUCK OPERATOR-C Primary Care Provider Active Start: September 21, 2025 End: September 21, 2025Lizbeth Owens NP-CAttenlydia ProviderActiveStart: September 21, 2025 End: September 21, 2025 Team Status: Inactive Member Role/Relationship Status Dates Lizbeth Owens DUCK OPERATOR-C Primary Care Provider Active Start: September 21, 2025 End: September 21, 2025Lizbeth Owens NP-CAttending ProviderActiveStart: September 21, 2025 End: September 21, 2025 Team Status: Inactive Member Role/Relationship Status Dates Lizbeth Owens DUCK OPERATOR-C Attending Provider Active Start: September 23, 2025 End: September 23, 2025 Team Status: Active Member Role/Relationship Status Dates Lizbeth Owens DUCK OPERATOR-C Primary Care Provider Active Start: September 23, 2025 Lizbeth Owens DUCK OPERATOR-CAttending ProviderActiveStart: September 23, 2025 Goals (unrecognized section and content) Goals [...] BE BASED ON THE PRIMARY CLINICAL RECORDS. [facility], [facility]. provides no warranty or guarantee of the accuracy or completeness of information in this document.
--- OUTSIDE RECORDS SUMMARY | 2025-10-14 13:38 | XMS_ITS | Clinical Summary ---
Author Organization [employer] s tem Address [id number] [address] [place] [address] Care Team Providers Care Test Designer Name Role Phone No Pcp, No Pcp Primary Care Provider Unavailabl e Allergies Active AllergyReactionsCriticalityNoted WtjtOrthxkxqZrusakrdvmg77/16/2017 Medications MedicationSigDispense QuantityRefillsLast FilledStart DateEnd DateStatus PNV95/FERROUS [...] standard drink = 0.6 oz pure alcohol)occasionallyChildcareAnswerDate UacqiqglEnjexvbnnLpumxil33/12/2019 EmploymentAnswerDate TnjazkteAdpslqrxfiShbpkdd60/12/2019Purpose - LifeAnswerDate RecordedPurpose and direction in ebikCrsruoj18/11/2021CommentsNoSex and Gender InformationValueDate RecordedSex Assigned at BirthNot on fileLegal Sex Vaduxo1906/22/2015 12:14 PM EDTGender IdentityNot on fileSexual OrientationNot on file Last Filed Vital Signs Vital SignReadingTime TakenCommentsBlood Kcefuoin975/8210 9:39 AM EDT Mqtcr533801/07/2017 3:00 PM ESTTemperature--Respiratory Rate--Oxygen Saturation-- Inhaled Oxygen Concentration--Mhgaui42.4 kg (164 lb)09/15/2019 9:39 AM EDTHeight 154.9 cm (5' 1 )09/15/2019 9:39 AM EDTBody Mass Index30.9909/15/2019 9:39 AM EDT Plan of Treatment Health MaintenanceDue DateLast DoneCommentsDepression Cahaimhrn79/07/2000Tobacco Fuvehrsji83/07/2000Adult BMI Kdrkgwcvp54/07/2006DTaP,Tdap and Td Vaccines (1 - Tdap)2007Pap Smear2009Influenza Jdanals7207/18/2025 Medical Devices Not on file Insurance Care Teams Team MemberRelationshipSpecialtyStart DateEnd Date No Pcp, [place] [address] PCP - GeneralFami Medicine01/07/17
--- OUTSIDE RECORDS SUMMARY | 2025-10-14 13:39 | XMS_ITS | Clinical Summary ---
Author Organization [facility] Address [address] [place] [address] Care Team Providers Care Poultry Sexer Name Role Phone Shaikh MAXI Deshpande Primary Care Provider [phone] Garry Carrasco DO, David L Unavailable [phone] Allergies Active AllergyReactionsCriticalityNoted DateCommentsCiprofloxacinUnknownMedium 11/17/20184922VgvjdlfeatyYyzauqqjAdipww42/16/2017SulfamethoxazoleOther: See Comments 06/09/2021TrimethoprimOther: See Qnmvqoly86/24/2021 Medications MedicationSigDispense QuantityRefillsLast FilledStart DateEnd DateStatus ALPRAZolam [...] RecordedSex Assigned at BirthNot on fileLegal Sex Mjgmsa9211/14/2016 9:21 AM ESTGender IdentityNot on fileSexual OrientationNot on file Last Filed Vital Signs Vital SignReadingTime TakenCommentsBlood Twlzhkpn477/6110/09/2021 2:14 PM EDT Pjnyy4721/09/2021 2:14 PM CTKYozliwfiwkn81.6 ??C (97.9 ??F)08/27/2021 2:14 PM EDTRespiratory Nbqd773108/10/2021 10:56 AM EDTOxygen Tqkaclkdux05%08/27/2021 2:14 PM EDTInhaled Oxygen Concentration--Helppo18 kg (141 lb)08/27/2021 2:14 PM EDT Kcghvv581.2 cm (5' 1.5 )08/27/2021 2:14 PM EDTBody Mass Index26.211 2:14 PM EDT Plan of Treatment Health MaintenanceDue DateLast DoneCommentsDTaP,Tdap,Td Vaccine (6 - Tdap) , 10/18/1996, 06/09/1990, Additional history existsAnxiety Lhjxzsfaa03/07/2006Depression Eggfamtat31/07/2006HIV Jzugpmrrb56/07/2006Cervical Cancer Hgcufrkyt43/07/2009HPV Vaccine (1 - 3-dose SCDM series)2015Covid-19 Vaccine (3 - season)51, 08/08/2021Influenza Vaccine (#1)2025Hepatitis C CwhtnfihdFzzditnen27/11/2021Hepatitis B Vaccine Vjkpwrbas43/07/2022, 12/24/2021, 08/04/2000, Additional history exists Procedures Procedure NamePriorityDate/TimeAssociated DiagnosisCommentsHEPATITIS C ANTIBODY IA WITH HMRAJESTOGIEVGZM70/11/2021 3:25 PM EDT Alcoholic cirrhosis of liver with ascites (HCC) from Last 3 Months or Most Recently Relevant to Health Maintenance Results * HEP C AB IA W/CONF SCRN (08/27/2021 3:25 PM EDT)ComponentValueRef RangeTest MethodAnalysis TimePerformed AtPathologist SignatureHep C Antibody IANegative Czvierai27/12/2021 5:39 PM EDTCleveland Clinic LaboratoriesSpecimen (Source) Anatomical Location / LateralityCollection Method / VolumeCollection Time Received TimeBloodBLOOD SPECIMEN / Lygolcj83/09/2021 3:25 PM EDT1 3:26 PM EDT Narrative Authorizing ProviderResult TypeResult StatusImad Mamadou GERMANLABORATORYFinal Result Performing OrganizationAddressCity/State/ZIP CodePhone Number [facility] [address] [place] [address] [facility] [address] [place] [address] from Last 3 Months or Most Recently Relevant to Health Maintenance Insurance Care Teams Team MemberRelationshipSpecialtyStart DateEnd Date Shaikh Deshpande MD [facility] [place] [address] PCP - GeneralPrimary Care08/10/21 Robbin Castañeda Jr., [address] [address] ReferringGastroenterology08/10/21
--- OUTSIDE RECORDS SUMMARY | 2025-10-14 13:39 | XMS_ITS | Clinical Summary ---
Author Organization [facility] Address [address] [place] [address] Care Team Providers Care Sports Book Board Attendant Name Role Phone Copeland Radha MENDOZA Unavailable [phone] Vicky Cedillo MD Unavailable Unallocated, Noms Provider MD Primary Care Provi cooper Allergies Active AllergyReactionsCriticalityNoted DateCommentsCiprofloxacinMedium 11/17/2018 Other Reaction(s): Unknown YxjofuawjqgLhzcte46/16/2017 Other Reaction(s): Unknown, Vomiting Ckbywcitarxztrsf52/24/2021 Other Reaction(s): Other: See Comments Vfmqzsqvlhgm85/24/2021 Other Reaction(s): Other: See Comments Medications MedicationSigDispense [...] 5Active Active Problems ProblemNoted DateDiagnosed DateSocial anxiety dpisofhx37/15/2025History of alcohol abuse01/15/2025Alcoholic cirrhosis of liver without [...] Will call in lasix as needed. Chronic ntltxgk7101/28/2024 Assessment & Plan (01/28/2024 2:57 PM EDT): Improved/resolved. This was likely due to low BP from lasix/aldactone. Alcohol use disorder in iqycgvnjb10/13/2024 Assessment & Plan (05/04/2024 4:02 PM EDT): [...] OV. Is following with Dr. Aguila in [place] for cirrhosis on 12/13/2024. Assessment & Plan [...] controlled now. Not on any medications Idiopathic hkkfwiaff62/13/2024 Assessment & Plan (01/28/2024 3:08 PM EDT): [...] no help. Trial of hyocyanine as needed. Knnqvac02Wellness ilelguygwfy89 Assessment & Plan (01/28/2024 3:16 PM EDT): Patient here for Annual Wellness Exam. Reviewed medical, surgical and social hx. Reviewed medication list. Health related questions and concerns addressed and answered. Patient provided appropriate education on chronic medical conditions and prescription medications. Encounters DateTypeDepartmentCare XgpnFjuawckqhgm82/29/2025Telephone [facility] [address] [place] [phone] Nav Mulligan LPC from Last 3 Months [...] pure alcohol)caffeine intake: 3 cups per day tpxlmpW2708 Health LiteracyAnswer Date RecordedHow often do you [...] times a week11/30/2024How often do you attend adventist or orthodox services?Patient pnsvygxd52/14/2025Do you belong to any clubs or organizations such as adventist groups, unions, fraternal or athletic virgilio ups, or school groups?Patient miufovpu11/14/2025How often do you attend meetings of the clubs or organizations you belong to?Patient szkffsok30/14/2025re you , , , , never , or living with a partner? Dnejkkmi71/14/2025UDIT-CAnswerDate RecordedQ1: How often do you have a [...] and heating?Somewhat hard11/30/2024PHQ-2AnswerDate RecordedPatient Health Questionnaire-2 Score0 01/10/2025[facility] Occupational Health - Occupational Stress QuestionnaireAnswerDate [...] the mortgage or rent on time? Patient ohoylwua01/14/2025In the past 12 months, how many times have you moved where you were living?t any time in the past 12 months, were you homeless or living in a halfway (including now)?No11/30/2024EducationAnswerDate RecordedWhat is the highest level of school you have completed or the highest degree you have received?Bachelor's degree (e.g., BA, AB, BS)4 CommentsNoSex and Gender InformationValueDate RecordedSex Assigned at Ibotzj5606/19/2023 9:45 AM EDTLegal JlkXyobtu70/15/2023 11:17 PM EDTGender MnhegdigVrclwu84/03/2023 9:45 AM EDTSexual OrientationNot on file Last Filed Vital Signs Vital SignReadingTime TakenCommentsBlood Gvrtmszf679/68005/11/2025 4:22 PM EDT Fyvio7312 3:03 PM EJPUxmkoyvpaip16.2 ??C (97.2 ??F)12/07/2024 2:56 PM ESTRespiratory Eoxg290012/07/2024 2:56 PM ESTOxygen Jaoicxhxkf07%12/07/2024 2:56 PM ESTInhaled Oxygen Concentration--Zegmzw14.3 kg (141 lb 12.8 oz)05/11/2025 4:22 PM MKDBidmtv272.9 cm (5' 1 )12/07/2024 2:56 PM ESTBody Mass Index26.79 12/07/2024 2:56 PM EST Plan of Treatment DateTypeDepartmentCare Team (Latest Contact Info)Whvfcjkfone75/29/2026 4:00 PM EDTOffice Visit [facility] [address] [place] [address] Chalo Wick DO [address] [place] [address] Health MaintenanceDue DateLast DoneCommentsPneumococcal Vaccine: Pediatrics (0 to 5 Years) and At-Risk Patients (6 to 64 Years) (1 of 2 - PCV)2007 HPV/Iyfavi3707/24/2018COVID-19 Vaccine (3 - 2024- season), 08/08/2021Influenza Vaccine (#1)2025ervical Cancer Npyzmqwtu82/25/2028Pap Smear Procedures Procedure NamePriorityDate/TimeAssociated DiagnosisCommentsPAP SMEARRoutine 05/11/2025 [...] DateEnd Date Unallocated, Noms Provider, [address] [place] [address] PCP - GeneralFamily Medicine01/18/25 Radha Copeland NP Nurse PractitionerFamily Medicine06/30/24 Vicky Cedillo MD [address] [place] [address] Referring NskyurzurTcsljdukghjmigax20/23/24
[2025-10-14 13:52] LABS: Hematocrit 41.0 % (36.0-48.0); Hemoglobin 13.8 g/dL (12.0-16.0); Immature Granulocytes Abs Auto 0.01 10^3/uL (0.00-0.03); Immature Granulocytes Pct Auto 0.2 % (0.0-0.5); Lymphocytes Absolute Auto 2.5 10^3/uL (1.2-3.8); Mean Corpuscular HGB Conc 33.7 g/dL (29.9-35.2); Mean Corpuscular Hemoglobin 31.3 pg (26.7-34.0); Mean Corpuscular Volume 93.0 fL (81.0-99.0); Platelet Count 165 10^3/uL (150-450); Red Blood Count 4.41 10^6/uL (4.20-5.40); White Blood Count 6.1 10^3/uL (4.0-11.0)
[2025-10-14 14:02] LABS: INR 1.11; Prothrombin Time 11.6 sec (9.0-11.6)
[2025-10-14 14:18] LABS: Alanine Aminotransferase 25 U/L (14-59); Albumin Globulin Ratio 1.3; Albumin Level 4.0 g/dL (3.4-5.0); Alkaline Phosphatase 40 U/L (46-116); Anion Gap 9.5; Aspartate Amino Transferase 15 U/L (15-37); Blood Urea Nitrogen 9.0 mg/dL (7.0-18.0); Calcium 9.1 mg/dL (8.5-10.1); Carbon Dioxide 27.2 mmol/L (21.0-32.0); Chloride 104 mmol/L (98-107); Estimated GFR (African America >60 (>=60 mL/min/1.73m^2); Estimated GFR (Non-African Ame >60 (>=60 mL/min/1.73m^2); Globulin 3.1 g/dL; Glucose 86 mg/dL (74-106); Potassium 3.7 mmol/L (3.5-5.1); Sodium 137 mmol/L (136-145); Total Protein 7.1 g/dL (6.4-8.2)
[2025-10-15 06:08] LABS: AFP, Serum, Tumor Marker 2.0 ng/mL (0.0-6.4)
== END 2025-10-14 13:36 | disposition home or self-care (01) ==
LOC: LAB 13:36
PROVIDERS: PCP Nurse Practitioner; Visit Provider Internal Medicine
DX: K74.60 Unspecified cirrhosis of liver (principal)
CPT/HCPCS: 36415; 80048; 80076; 82105; 85025; 85610

== ENCOUNTER 2025-10-15 11:05 | Outpatient (OUT) | payer OTHER, SELFPAY ==
--- NOTE | 2025-10-15 11:08 | US_ITS ---
The [address] [address] Patient Name: ROCIO RDZ MRN: [id number] date: 1990 Sex: F Assigned Patient Location: [place] Current Patient Location: [place] Accession/Order Number: [id number] Exam Date: 10/15/2025 11:10 Report Date: 10/15/2025 11:38 At the request of: BERTHA GATES MD Procedure: US right upper quadrant EXAMINATION TYPE: US right upper quadrant DATE OF EXAM ORDERED: 10/15/2025 11:26 AM HISTORY: Hepatic cirrhosis COMPARISON: 05/01/2024 TECHNIQUE: Realtime imaging limited to the right upper quadrant was performed. FINDINGS: The gallbladder appears within normal limits without evidence of cholelithiasis. The gallbladder wall measures 1 mm in thickness. The common bile duct measures 4 mm in diameter. No intrahepatic or extrahepatic biliary dilatation is seen. The liver is echogenic with lobular margins consistent with a history of hepatic cirrhosis. There is hepatopedal flow in the main portal vein. Partial visualization of the right kidney reveals no gross hydronephrosis. Partial visualization of the pancreas reveals no abnormality. US/US right upper quadrant IMPRESSION: Findings are consistent with a history of hepatic cirrhosis. There is hepatopedal flow the main portal vein. Impression dictated by: Ishmael Nelson M.D. 10/15/2025 11:38 AM Dictation Location: [place] [address] Electronically authenticated by: [id number] Y Date: 10/15/2025 11:38
--- OUTSIDE RECORDS SUMMARY | 2025-10-15 11:09 | XMS_ITS | Clinical Summary ---
Author Organization [facility] Address [address] [place] [address] Care Team Providers Care Tours Hostess Name Role Phone Shaikh MAXI Deshpande Primary Care Provider [phone] Garry Carrasco DO, David L Unavailable [phone] Allergies Active AllergyReactionsCriticalityNoted DateCommentsCiprofloxacinUnknownMedium 11/17/20185443WaadbkgcltnVpxojenhGhbfrp14/16/2017SulfamethoxazoleOther: See Comments 06/09/2021TrimethoprimOther: See Zppepckr80/24/2021 Medications MedicationSigDispense QuantityRefillsLast FilledStart DateEnd DateStatus ALPRAZolam [...] RecordedSex Assigned at BirthNot on fileLegal Sex Ntgdcu7311/14/2016 9:21 AM ESTGender IdentityNot on fileSexual OrientationNot on file Last Filed Vital Signs Vital SignReadingTime TakenCommentsBlood Nznmizaz598/6110/09/2021 2:14 PM EDT Anfiu4057/09/2021 2:14 PM MJKTnvtawprurl31.6 ??C (97.9 ??F)08/27/2021 2:14 PM EDTRespiratory Zcix940208/10/2021 10:56 AM EDTOxygen Spuuoahfxo63%08/27/2021 2:14 PM EDTInhaled Oxygen Concentration--Xlpcyx52 kg (141 lb)08/27/2021 2:14 PM EDT Hhzrbe672.2 cm (5' 1.5 )08/27/2021 2:14 PM EDTBody Mass Index26.211 2:14 PM EDT Plan of Treatment Health MaintenanceDue DateLast DoneCommentsDTaP,Tdap,Td Vaccine (6 - Tdap) , 10/18/1996, 06/09/1990, Additional history existsAnxiety Iguzgmcrc30/07/2006Depression Onpyrhfni48/07/2006HIV Ogzicupoj16/07/2006Cervical Cancer Kywlquffg92/07/2009HPV Vaccine (1 - 3-dose SCDM series)2015Covid-19 Vaccine (3 - season)51, 08/08/2021Influenza Vaccine (#1)2025Hepatitis C VykkdyhpyKrpodnynl71/11/2021Hepatitis B Vaccine Ejxvkbmxt79/07/2022, 12/24/2021, 08/04/2000, Additional history exists Procedures Procedure NamePriorityDate/TimeAssociated DiagnosisCommentsHEPATITIS C ANTIBODY IA WITH OWTFMCWPUROYSPRX51/11/2021 3:25 PM EDT Alcoholic cirrhosis of liver with ascites (HCC) from Last 3 Months or Most Recently Relevant to Health Maintenance Results * HEP C AB IA W/CONF SCRN (08/27/2021 3:25 PM EDT)ComponentValueRef RangeTest MethodAnalysis TimePerformed AtPathologist SignatureHep C Antibody IANegative Ebpxnszv33/12/2021 5:39 PM EDTCleveland Clinic LaboratoriesSpecimen (Source) Anatomical Location / LateralityCollection Method / VolumeCollection Time Received TimeBloodBLOOD SPECIMEN / Znsqkzw34/09/2021 3:25 PM EDT1 3:26 PM EDT Narrative Authorizing ProviderResult TypeResult StatusImad Mamadou GERMANLABORATORYFinal Result Performing OrganizationAddressCity/State/ZIP CodePhone Number [facility] [address] [place] [address] [facility] [address] [place] [address] from Last 3 Months or Most Recently Relevant to Health Maintenance Insurance Care Teams Team MemberRelationshipSpecialtyStart DateEnd Date Shaikh Deshpande MD [facility] [place] [address] PCP - GeneralPrimary Care08/10/21 Robbin Castañeda Jr., [address] [address] ReferringGastroenterology08/10/21
--- OUTSIDE RECORDS SUMMARY | 2025-10-15 11:09 | XMS_ITS | Clinical Summary ---
Author Organization [facility] Address [address] [place] [address] Care Team Providers Care Crocheter Hand Name Role Phone Copeland Radha MENDOZA Unavailable [phone] Vicky Cedillo MD Unavailable Unallocated, Noms Provider MD Primary Care Provi cooper Allergies Active AllergyReactionsCriticalityNoted DateCommentsCiprofloxacinMedium 11/17/2018 Other Reaction(s): Unknown IarqvtyyrzsAxdxbk27/16/2017 Other Reaction(s): Unknown, Vomiting Nlphrsaksspitsfb96/24/2021 Other Reaction(s): Other: See Comments Vjzzzpfswweo23/24/2021 Other Reaction(s): Other: See Comments Medications MedicationSigDispense [...] 5Active Active Problems ProblemNoted DateDiagnosed DateSocial anxiety vyjddvwp79/15/2025History of alcohol abuse01/15/2025Alcoholic cirrhosis of liver without [...] Will call in lasix as needed. Chronic mstgiwr0101/28/2024 Assessment & Plan (01/28/2024 2:57 PM EDT): Improved/resolved. This was likely due to low BP from lasix/aldactone. Alcohol use disorder in /13/2024 Assessment & Plan (05/04/2024 4:02 PM EDT): [...] OV. Is following with Dr. [place] in [place] for cirrhosis on 12/13/2024. Assessment & Plan [...] controlled now. Not on any medications Idiopathic ceahdaawd43/13/2024 Assessment & Plan (01/28/2024 3:08 PM EDT): [...] no help. Trial of hyocyanine as needed. Ohwvndr77Wellness nzsrxadmotw05 Assessment & Plan (01/28/2024 3:16 PM EDT): Patient here for Annual Wellness Exam. Reviewed medical, surgical and social hx. Reviewed medication list. Health related questions and concerns addressed and answered. Patient provided appropriate education on chronic medical conditions and prescription medications. Encounters DateTypeDepartmentCare CabnNgzwavflezj32/29/2025Telephone [facility] [address] [place] [phone] Nav Mulligan LPC from Last 3 Months [...] pure alcohol)caffeine intake: 3 cups per day oxhrckG2329 Health LiteracyAnswer Date RecordedHow often do you [...] times a week11/30/2024How often do you attend jew or jain services?Patient cwfyujzg40/14/2025Do you belong to any clubs or organizations such as jew groups, unions, fraternal or athletic virgilio ups, or school groups?Patient /14/2025How often do you attend meetings of the clubs or organizations you belong to?Patient dwixfzjx31/14/2025re you , , , , never , or living with a partner? Exrufdvo50/14/2025UDIT-CAnswerDate RecordedQ1: How often do you have a [...] and heating?Somewhat hard11/30/2024PHQ-2AnswerDate RecordedPatient Health Questionnaire-2 Score0 01/10/2025[facility] [place] [facility] - Occupational Stress QuestionnaireAnswerDate [...] the mortgage or rent on time? Patient djghtazi68/14/2025In the past 12 months, how many times have you moved where you were living?t any time in the past 12 months, were you homeless or living in a skilled nursing (including now)?No11/30/2024EducationAnswerDate RecordedWhat is the highest level of school you have completed or the highest degree you have received?Bachelor's degree (e.g., BA, AB, BS)4 CommentsNoSex and Gender InformationValueDate RecordedSex Assigned at Fkgqbl0706/19/2023 9:45 AM EDTLegal DnoZknapx20/15/2023 11:17 PM EDTGender VmtrnclnVnksvo71/03/2023 9:45 AM EDTSexual OrientationNot on file Last Filed Vital Signs Vital SignReadingTime TakenCommentsBlood Bjaqvjra238/68005/11/2025 4:22 PM EDT Yrjpc7627 3:03 PM XVOMtegrwtexah50.2 ??C (97.2 ??F)12/07/2024 2:56 PM ESTRespiratory Twrz528312/07/2024 2:56 PM ESTOxygen Ywqsfnrcmk70%12/07/2024 2:56 PM ESTInhaled Oxygen Concentration--Xcirsl47.3 kg (141 lb 12.8 oz)05/11/2025 4:22 PM YSDVvnykf857.9 cm (5' 1 )12/07/2024 2:56 PM ESTBody Mass Index26.79 12/07/2024 2:56 PM EST Plan of Treatment DateTypeDepartmentCare Team (Latest Contact Info)Jqcsloygcou30/29/2026 4:00 PM EDTOffice Visit [facility] [address] [place] [address] Chalo Wick DO [address] [place] [address] Health MaintenanceDue DateLast DoneCommentsPneumococcal Vaccine: Pediatrics (0 to 5 Years) and At-Risk Patients (6 to 64 Years) (1 of 2 - PCV)2007 HPV/Srvcmr3707/24/2018COVID-19 Vaccine (3 - 2024- season), 08/08/2021Influenza Vaccine (#1)2025ervical Cancer Bmisnxrav91/25/2028Pap Smear Procedures Procedure NamePriorityDate/TimeAssociated DiagnosisCommentsPAP SMEARRoutine 05/11/2025 [...] DateEnd Date Unallocated, Noms Provider, [address] [place] [address] PCP - GeneralFamily Medicine01/18/25 Radha Copeland NP Nurse PractitionerFamily Medicine06/30/24 Vicky Cedillo MD [address] [place] [address] Referring XrkmtghriFvdtctxaaxncawqt48/23/24
--- OUTSIDE RECORDS SUMMARY | 2025-10-15 11:09 | XMS_ITS | Clinical Summary ---
Author Organization [facility] Address [id number] [address] [place] [address] Care Team Providers Care Prepress Manager Name Role Phone No Pcp, No Pcp Primary Care Provider Unavailabl e Allergies Active AllergyReactionsCriticalityNoted VtsuPcvibkmnZdwnvzyykou25/16/2017 Medications MedicationSigDispense QuantityRefillsLast FilledStart DateEnd DateStatus PNV95/FERROUS [...] standard drink = 0.6 oz pure alcohol)occasionallyChildcareAnswerDate WdnpbujcKhepjexlqSvukwdl49/12/2019 EmploymentAnswerDate NzaqlzjkLvcomjiwguWclnwcz86/12/2019Purpose - LifeAnswerDate RecordedPurpose and direction in maxdCjfsupg64/11/2021CommentsNoSex and Gender InformationValueDate RecordedSex Assigned at BirthNot on fileLegal Sex Umhgrq3906/22/2015 12:14 PM EDTGender IdentityNot on fileSexual OrientationNot on file Last Filed Vital Signs Vital SignReadingTime TakenCommentsBlood Iafanzlf501/8210 9:39 AM EDT Qrmma821801/07/2017 3:00 PM ESTTemperature--Respiratory Rate--Oxygen Saturation-- Inhaled Oxygen Concentration--Uzooao90.4 kg (164 lb)09/15/2019 9:39 AM EDTHeight 154.9 cm (5' 1 )09/15/2019 9:39 AM EDTBody Mass Index30.9909/15/2019 9:39 AM EDT Plan of Treatment Health MaintenanceDue DateLast DoneCommentsDepression Mfjisslyt63/07/2000Tobacco Dlawdcxjd04/07/2000Adult BMI Savodgzrh56/07/2006DTaP,Tdap and Td Vaccines (1 - Tdap)2007Pap Smear2009Influenza Trnpyuh0407/18/2025 Medical Devices [place] [address] Care Teams Team MemberRelationshipSpecialtyStart DateEnd Date No Pcp, [place] [address] PCP - GeneralFami Medicine01/07/17
== END 2025-10-15 11:06 | disposition home or self-care (01) ==
LOC: US 11:06
PROVIDERS: PCP Nurse Practitioner; Visit Provider Internal Medicine
DX: K74.60 Unspecified cirrhosis of liver (principal)
CPT/HCPCS: 76705